=== PATIENT | female | born 1935 | race Caucasian/White ===

== ENCOUNTER 2017-01-03 06:32 | Day surgery (SDC) | payer OTHER ==
[~2017-01-03] VITALS: Ht 152.4 cm; Wt 62.3 kg
[~2017-01-03 06:32] MED LIST: ATOR20TA38 PO; CARV12.579 PO; EXEMESTANE; PANT40TA3 PO; REGLAN; SUCR1TAB56 PO
[2017-01-03] MEDS ORDERED: BUPIVACAINE 0.5% (SDV) 30 ML INJ ONE (07:11)
[2017-01-03] MEDS ORDERED: LIDOCAINE 1% (MDV) 20 ML INJ ONE (07:11)
[2017-01-03] MEDS ORDERED: CEFAZOLIN 2 GM/50 ML (PMX) 0 ML IVPB ONE (07:11)
[2017-01-03 07:26] VITALS: Ht 152.4 cm; Wt 62.3 kg
[2017-01-03] MEDS ORDERED: POLYMYXIN/BACITRACIN 1L IRRIG IRR SCH (07:30)
[2017-01-03 07:43] VITALS: BP 130/78; PULSE 96; RESP 18
[2017-01-03] MEDS ORDERED: PALB100C PO (07:44)
[2017-01-03 07:51] LABS: BASOPHIL # 0.1 10^3/ul (0.0-0.1); BASOPHILS % 1.9 % (0.0-2.0); EOSINOPHILS # 0.2 10^3/ul (0.0-0.5); EOSINOPHILS % 3.7 % (0.0-7.0); HEMATOCRIT 33.2 % (37.0-47.0); HEMOGLOBIN 11.1 g/dl (12.0-16.0); LYMPHOCYTES # 0.9 10^3/ul (0.8-2.9); LYMPHOCYTES % 16.5 % (15.0-51.0); MEAN CORPUSCULAR HEMOGLOBIN 33.1 pg (29.0-33.0); MEAN CORPUSCULAR HGB CONC 33.4 g/dl (32.0-37.0); MEAN CORPUSCULAR VOLUME 99.1 fl (82.0-101.0); MEAN PLATELET VOLUME 10.8 fl (7.4-10.4); MONOCYTE # 0.6 10^3/ul (0.3-0.9); MONOCYTES % 10.3 % (0.0-11.0); NEUTROPHILS % 64.1 % (39.0-77.0); PLATELET COUNT 256 10^3/UL (140-415); RED BLOOD COUNT 3.35 10^6/ul (4.20-5.40); RED CELL DISTRIBUTION WIDTH 14.2 % (11.5-14.5); WHITE BLOOD COUNT 5.7 10^3/ul (4.8-10.8)
[2017-01-03 08:10] VITALS: BP 136/72; PULSE 92; RESP 16
[2017-01-03 08:20] LABS: INR 0.99; PROTIME 13.1 Sec (12.2-14.2)
[2017-01-03 08:21] LABS: PARTIAL THROMBOPLASTIN TIME 28.6 Sec (25.0-35.0)
[2017-01-03 08:36] LABS: CALCIUM 9.6 mg/dl (8.4-10.2); CREATININE 1.38 mg/dl (0.44-1.00)
== END 2017-01-03 08:16 | disposition home or self-care (01) ==
LOC: SDS 06:32
PROVIDERS: ATTEND Internal Medicine Clinical Cardiac Electrophysiology
DX: Z45.02 Encounter for adjustment and management of automatic implantable cardiac defibrillator (principal); Z53.9 Procedure and treatment not carried out, unspecified reason; E78.00 Pure hypercholesterolemia, unspecified; Z85.89 Personal history of malignant neoplasm of other organs and systems
CPT/HCPCS: 80048; 85025; 85610; 85730; Z7610; J0690

== ENCOUNTER 2017-01-06 11:13 | Emergency (ER) | payer OTHER ==
[~2017-01-06] VITALS: Ht 154.9 cm; Wt 61.0 kg
[~2017-01-06 11:13] MED LIST changes: +PALB100C PO
[2017-01-06 11:16] VITALS: Ht 154.9 cm; Wt 61.0 kg
[2017-01-06] MEDS ORDERED: KETOROLAC 15 MG INJ IV STA (13:13)
--- NOTE | 2017-01-06 13:38 | RADRPT ---
PROCEDURE: XR Chest. CLINICAL INDICATION: Cough . TECHNIQUE: Single frontal chest x-ray. COMPARISON: 05/07/2014 FINDINGS: Cardiomegaly with left-sided biventricular AICD in place. There is left lower lobe retrocardiac atel ectasis or consolidation. Remainder of the lungs are clear. Right mastectomy with axillary node diss ection clips are seen. .. Calcific atherosclerosis of the aorta is present.. The osseous structure s are intact. IMPRESSION: Cardiomegaly with left-sided AICD in place. Increased left basilar atelectasis or consolidation. Status post right mastectomy with axillary node dissection.. RPTAT: JJ .Torsten Reyes MD, MD Date Time Electronically viewed and signed by .Torsten Reyes MD, MD on 01/06/2017 13:38 .L/
[2017-01-06] MEDS ORDERED: ASPI-664 PO (13:50)
[2017-01-06] MEDS ORDERED: SOD CHLORIDE 0.9% 500 ML IV ONE (14:00)
[2017-01-06] MEDS ORDERED: AZITHROMYCIN 250 MG TAB PO ONE (14:00)
[2017-01-06 14:12] LABS: BASOPHIL # 0.1 10^3/ul (0.0-0.1); BASOPHILS % 0.5 % (0.0-2.0); EOSINOPHILS # 0.1 10^3/ul (0.0-0.5); EOSINOPHILS % 0.4 % (0.0-7.0); HEMATOCRIT 32.2 % (37.0-47.0); HEMOGLOBIN 10.8 g/dl (12.0-16.0); LYMPHOCYTES # 0.9 10^3/ul (0.8-2.9); LYMPHOCYTES % 4.6 % (15.0-51.0); MEAN CORPUSCULAR HEMOGLOBIN 33.3 pg (29.0-33.0); MEAN CORPUSCULAR HGB CONC 33.5 g/dl (32.0-37.0); MEAN CORPUSCULAR VOLUME 99.4 fl (82.0-101.0); MEAN PLATELET VOLUME 10.6 fl (7.4-10.4); MONOCYTE # 0.3 10^3/ul (0.3-0.9); MONOCYTES % 1.6 % (0.0-11.0); NEUTROPHILS % 88.8 % (39.0-77.0); PLATELET COUNT 206 10^3/UL (140-415); RED BLOOD COUNT 3.24 10^6/ul (4.20-5.40); RED CELL DISTRIBUTION WIDTH 14.2 % (11.5-14.5); WHITE BLOOD COUNT 18.5 10^3/ul (4.8-10.8)
[2017-01-06 14:30] LABS: ALANINE AMINOTRANSFERASE 33 IU/L (13-69); ALBUMIN 3.8 g/dl (3.3-4.9); ALBUMIN/GLOBULIN RATIO 1.26; ALKALINE PHOSPHATASE 121 IU/L (42-121); ANION GAP 12 (8-16); ASPARTATE AMINO TRANSFERASE 29 IU/L (15-46); BILIRUBIN,INDIRECT 0.3 mg/dl (0-1.1); BILIRUBIN,TOTAL 0.3 mg/dl (0.2-1.3); BLOOD UREA NITROGEN 20 mg/dl (7-20); CARBON DIOXIDE 23 mmol/L (21-31); CHLORIDE 107 mmol/L (97-110); CREATININE 1.26 mg/dl (0.44-1.00); GLUCOSE 107 mg/dl (70-220); POTASSIUM 3.9 mmol/L (3.5-5.1); SODIUM 138 mmol/L (135-144); TOTAL PROTEIN 6.8 g/dl (6.1-8.1)
[2017-01-06] MEDS ORDERED: CEFTRIAXONE 1 GM INJ IM ONE ×2 (14:30→15:30)
[2017-01-06 14:42] LABS: B-TYPE NATRIURETIC PEPTIDE 128 PG/ML (0-450)
--- NOTE | 2017-01-06 14:42 | ERA ---
ER Documentation Chief Complaint Date/Time DATE: 01/06/17 TIME: 14:41 Chief Complaint Compplains of a cough and back pain x 3 days HPI 81-year-old woman brought in by family members for recent cough, back pain, intermittent shortness of breath 3-4 days. She has had no chest pain, no fevers or chills, no vomiting or diarrhea, no calf or leg swelling. Patient denies recent antibiotic use. ROS All systems reviewed and are negative except as per history of present illness. Medications Home Meds Active Scripts Ibuprofen* (Ibuprofen*) 600 Mg Tablet, 600 MG PO Q8 for PAIN AND/OR INFLAMMATION , #30 TAB Prov:DIMA CUEVAS MD 01/06/17 Albuterol Sulfate* (Proair HFA*) 8.5 Gm Hfa.aer.ad, 2 PUFF INH Q4 for COUGH, #1 INHALER Prov:DIMA CUEVAS MD 01/06/17 Azithromycin* (Zithromax*) 500 Mg Tablet, 500 MG PO DAILY for 4 Days, TAB Prov:DIMA CUEVAS MD 01/06/17 Sucralfate* (Carafate*) 1 Gm Tab, 1 GM PO QID, #20 TAB Prov:APRIL ARAIZA 07/22/15 Reported Medications Aspirin (Low Dose Aspirin) 81 Mg Tablet.dr, 81 MG PO DAILY, #30 TAB 01/06/17 Palbociclib (Ibrance) 100 Mg Capsule, 100 MG PO DAILY, CAP 01/03/17 Pantoprazole* (Protonix*) 40 Mg Tablet.dr, 40 MG PO DAILY, TAB 09/16/14 Atorvastatin Calcium* (Atorvastatin Calcium*) 20 Mg Tablet, 20 MG PO HS, TAB 05/07/14 Carvedilol* (Carvedilol*) 12.5 Mg Tablet, 12.5 MG PO BID, TAB 05/07/14 Discontinued Reported Medications [Reglan] No Conflict Check 10/19/15 [Exemestane] No Conflict Check 10/19/15 Allergies Allergies: Coded Allergies: No Known Allergies (Verified Allergy, Unknown, 01/06/17) PMhx/Soc Breast cancer, hypertension, CHF, previous anemia History of Surgery: Yes (c-sec x2,left breast mastectomy with radiation and chemo ) Anesthesia Reaction: No Hx Neurological Disorder: No Hx Respiratory Disorders: No Hx Cardiac Disorders: Yes (pacemaker) Hx Psychiatric Problems: No Hx Miscellaneous Medical Probl: Yes (high cholesterol) Hx Alcohol Use: No Hx Substance Use: No Hx Tobacco Use: No Smoking Status: Never smoker FmHx Family History: No diabetes Physical Exam Vitals Vital Signs Date Time Temp Pulse Resp B/P Pulse Ox O2 Delivery O2 Flow Rate FiO2 01/06/17 15:44 96 22 101/76 96 Room Air 01/06/17 15:02 92 22 126/75 96 Room Air 01/06/17 11:16 98.0 106 20 129/61 96 Physical Exam GENERAL: Well-developed, well-nourished, well-hydrated, in no apparent distress , looks nontoxic in appearance HEENT: Moist mucous membranes, pink conjunctiva, no cervical spine tenderness or step-off deformities, no goiter, no jaundice or icterus, extraocular movements intact without pain. No submandibular induration, and no pharyngeal erythema NEURO: Alert and oriented 3, cranial nerves II through XII intact bilaterally, pupils equal round reactive to light, no focal deficits or facial asymmetry, sensation intact distally Strength 5/5 in upper and lower extremities bilaterally CARDIAC: Regular rate and rhythm, no murmurs rubs or gallops LUNGS: Clear bilaterally no wheezing crackles or stridor ABDOMEN: Soft nontender, no guarding, no rigidity, no rebound, no psoas sign no obturator sign. Normoactive bowel sounds SKIN: Warm and dry to touch, no abrasions, contusions, or hematomas, no lacerations, no ecchymosis, no target lesions, and without ulcers EXTREMITIES: No clubbing cyanosis or edema, calves are bilaterally symmetrical, no Homans sign, no popliteal cord sign. Distal pulses equal and bilateral PSYCH: Normal affect without agitation or irritability Result Diagram: 01/06/17 1355 01/06/17 1355 Results 24 hrs Laboratory Tests Test 01/06/17 13:55 01/06/17 15:44 White Blood Count 18.510^3/ul Red Blood Count 3.2410^6/ul Hemoglobin 10.8g/dl Hematocrit 32.2% Mean Corpuscular Volume 99.4fl Mean Corpuscular Hemoglobin 33.3pg Mean Corpuscular Hemoglobin Concent 33.5g/dl Red Cell Distribution Width 14.2% Platelet Count 24916^3/UL Mean Platelet Volume 10.6fl Neutrophils % 88.8% Lymphocytes % 4.6% Monocytes % 1.6% Eosinophils % 0.4% Basophils % 0.5% Nucleated Red Blood Cells % 0.0/100WBC Neutrophils # (Manual) 16.410^3/ul Lymphocytes # 0.910^3/ul Monocytes # 0.310^3/ul Eosinophils # 0.110^3/ul Basophils # 0.110^3/ul Nucleated Red Blood Cells # 0.010^3/ul Sodium Level 138mmol/L Potassium Level 3.9mmol/L Chloride Level 107mmol/L Carbon Dioxide Level 23mmol/L Anion Gap 12 Blood Urea Nitrogen 20mg/dl Creatinine 1.26mg/dl Glucose Level 107mg/dl Calcium Level 9.0mg/dl Total Bilirubin 0.3mg/dl Direct Bilirubin 0.00mg/dl Indirect Bilirubin 0.3mg/dl Aspartate Amino Transf (AST/SGOT) 29IU/L Alanine Aminotransferase (ALT/SGPT) 33IU/L Alkaline Phosphatase 121IU/L Troponin I < 0.012ng/ml B-Type Natriuretic Peptide 128PG/ML Total Protein 6.8g/dl Albumin 3.8g/dl Globulin 3.00g/dl Albumin/Globulin Ratio 1.26 Lipase 55U/L Urine Color YELLOW Urine Clarity SLIGHTLY CLOUDY Urine pH 5.0 Urine Specific [place] 1.015 Urine Ketones NEGATIVEmg/dL Urine Nitrite NEGATIVEmg/dL Urine Bilirubin NEGATIVEmg/dL Urine Urobilinogen NEGATIVEmg/dL Urine Leukocyte Esterase 2+[place]/ul Urine Microscopic RBC 1/HPF Urine Microscopic WBC 84/HPF Urine Bacteria MODERATE/HPF Urine Hemoglobin NEGATIVEmg/dL Urine Glucose NEGATIVEmg/dL Urine Total Protein 1+mg/dl Current Medications Medications (Trade) Dose Ordered Sig/Zahra Route PRN Reason Start Time Stop Time Status Last Admin Dose Admin Ketorolac Tromethamine 15 mg 15 mg ONCE STAT IV 01/06/17 13:13 01/06/17 13:15 DC Sodium Chloride (NS) 500 ml @ 500 mls/hr Q1H ONCE IV 01/06/17 14:00 01/06/17 14:59 DC Azithromycin (Zithromax) 500 mg ONCE ONCE PO 01/06/17 14:00 01/06/17 14:01 DC 01/06/17 14:31 Ceftriaxone Sodium 1 gm 1 gm ONCE ONCE IM 01/06/17 14:30 01/06/17 14:44 DC Ceftriaxone Sodium (Rocephin) 50 ml @ 100 mls/hr ONCE ONCE IVPB 01/06/17 15:00 01/06/17 15:16 DC Ceftriaxone Sodium (Rocephin) 1 gm ONCE ONCE IM 01/06/17 15:30 01/06/17 15:30 DC Lidocaine (Xylocaine 1% (Mdv) 20 ml) 20 ml ONCE ONCE SC 01/06/17 15:30 01/06/17 15:31 DC 01/06/17 15:42 Ceftriaxone Sodium (Rocephin) 1 gm STK-MED ONCE .ROUTE 01/06/17 15:33 01/06/17 15:34 DC Procedures/MDM IV line was established patient was placed on ekg monitor tech rhythm strip revealed a paced wide-complex rhythm at 80 bpm. Patient was afebrile EKG performed, read by me revealed a paced rhythm at 93 bpm, left axis deviation , no concerning ST elevations or depressions noted. One view chest x-ray performed, read by me there is a pacemaker in the left chest with a large pleural effusion and possible parapneumonic infiltrate, right lung reveals atelectasis, no pneumothorax, no end of the diaphragm. I administered 1 L normal saline intravenously, Toradol 15 mg IV, and a GI cocktail 30 cc p.o. CBC reveals a leukocytosis, electrolytes revealed mild dehydration with a BUN/ creatinine 20/1.3, liver function tests normal, troponin negative.BNP was low, and urine analysis was positive for infection. I treated the patient here with azithromycin 500 mg p.o. 1 as well as ceftriaxone 1 g IV. Patient's curb-65 score is 2 given her age and BUN level so my recommendation was inpatient management for IV antibiotics although patient and her son who was at the bedside refused this. I told the patient outpatient management may be dangerous, she may develop respiratory failure, sepsis, and may not properly respond to oral antibiotics resulting even . Despite this the patient stated she did have close follow -up with her PMD and preferred outpatient management with oral antibiotics. Differential diagnoses considered, included but not limited to acute coronary syndrome, pulmonary embolism, aortic dissection, abdominal aortic aneurysm, sepsis, stroke, meningitis, encephalitis, pneumonia, appendicitis, cholecystitis , bowel obstruction, pyelonephritis, nephrolithiasis, cystitis, as well as metabolic, hematologic, and electrolyte abnormalities. As well as abscess, cellulitis, fractures, and dislocations. Patient feels much better at this time, and vital signs are normal, symptoms have improved. I did give strict instructions to return to the ED if symptoms continue or worsen, patient will otherwise follow-up with primary care physician. Patient understood instructions and agreed to plan. Disclaimer: Inadvertent spelling and grammatical errors are likely due to EHR/ dictation software use and do not reflect on the overall quality of patient care. Also, please note that the electronic time recorded on this note does not necessarily reflect the actual time of the patient encounter. I do not suspect sepsis. Departure Diagnosis: Primary Impression: Pneumonia Qualified Code: J18.1 - Pneumonia of left lower lobe due to infectious organism Additional Impression: Acute UTI Condition: Stable DIMA CUEVAS MD Jan 06, 2017 14:42
[2017-01-06 14:45] LABS: TROPONIN-I < 0.012 ng/ml (0.00-0.12)
[2017-01-06] MEDS ORDERED: CEFTRIAXONE 1 GM/50 ML (PMX) 50 ML IVPB ONE (15:00)
[2017-01-06] MEDS ORDERED: AZIT500T3 PO (15:19)
[2017-01-06] MEDS ORDERED: ALBU8.5H3 INH (15:19)
[2017-01-06] MEDS ORDERED: IBUP-1542 PO (15:19)
[2017-01-06] MEDS ORDERED: LIDOCAINE 1% (MDV) 20 ML INJ SC ONE (15:30)
[2017-01-06] MEDS ORDERED: CEFTRIAXONE 1 GM INJ ONE (15:33)
[2017-01-06 15:44] VITALS: BP 101/76; PULSE 96; RESP 22
[2017-01-06 15:56] LABS: ADD UMIC YES; UR ASCORBIC ACID NEGATIVE (NEGATIVE); UR BACTERIA MODERATE /HPF (NONE SEEN); UR BILIRUBIN (Dip) NEGATIVE (NEGATIVE); UR BLOOD (Dip) NEGATIVE (NEGATIVE); UR CLARITY SLIGHTLY CLOUDY (CLEAR); UR COLOR YELLOW (YELLOW); UR GLUCOSE (Dip) NEGATIVE (NEGATIVE); UR KETONES (Dip) NEGATIVE (NEGATIVE); UR LEUKOCYTE ESTERASE (Dip) 2+ Leu/ul (NEGATIVE); UR NITRITE (Dip) NEGATIVE (NEGATIVE); UR RBC 1 /HPF (0-5); UR SPECIFIC GRAVITY (Dip) 1.015 (1.003-1.030); UR TOTAL PROTEIN (Dip) 1+ mg/dl (NEGATIVE); UR UROBILINOGEN (Dip) NEGATIVE (NEGATIVE)
== END 2017-01-06 15:51 | disposition home or self-care (01) ==
LOC: E/R 11:13
DX: J18.1 Lobar pneumonia, unspecified organism (principal); N39.0 Urinary tract infection, site not specified; I10 Essential (primary) hypertension; I50.9 Heart failure, unspecified; Z79.82 Long term (current) use of aspirin; Z85.3 Personal history of malignant neoplasm of breast; Z95.0 Presence of cardiac pacemaker
CPT/HCPCS: 71010; 80053; 81001; 83690; 83880; 84484; 85025; 87040; 93005; J0696; J1885; J7040; Z7502; Z7610

== ENCOUNTER 2017-01-31 10:16 | Inpatient (IN) | payer OTHER ==
[2017-01-31] VITALS (7 sets, daily range): BP systolic 109–134; BP diastolic 61–76; PULSE 92–101; RESP 16–20; Ht 157.5 cm; Wt 61.3 kg
[~2017-01-31] VITALS: Ht 157.5 cm; Wt 61.3 kg
[~2017-01-31 10:16] MED LIST changes: +ALBU8.5H3 INH; +ASPI-664 PO; +AZIT500T3 PO; -EXEMESTANE; +IBUP-1542 PO; -REGLAN
[2017-01-31 11:41] LABS: ABNORMAL IP MESSAGE 1; HEMATOCRIT 30.3 % (37.0-47.0); HEMOGLOBIN 10.4 g/dl (12.0-16.0); MEAN CORPUSCULAR HEMOGLOBIN 34.3 pg (29.0-33.0); MEAN CORPUSCULAR HGB CONC 34.3 g/dl (32.0-37.0); MEAN PLATELET VOLUME 10.4 fl (7.4-10.4); PLATELET COUNT 247 10^3/UL (140-415); RED BLOOD COUNT 3.03 10^6/ul (4.20-5.40); RED CELL DISTRIBUTION WIDTH 14.5 % (11.5-14.5); WHITE BLOOD COUNT 1.9 10^3/ul (4.8-10.8)
[2017-01-31 11:55] LABS: INR 1.11; PROTIME 14.3 Sec (12.2-14.2); PT RATIO 1.1
[2017-01-31 11:56] LABS: PARTIAL THROMBOPLASTIN TIME 27.5 Sec (25.0-35.0)
[2017-01-31 12:02] LABS: HOLD TRANSMISSIONS 1; POSITIVE DIFF @See below
[2017-01-31 12:07] LABS: ALBUMIN 3.8 g/dl (3.3-4.9); ALBUMIN/GLOBULIN RATIO 1.18; BILIRUBIN,INDIRECT 0.2 mg/dl (0-1.1); BILIRUBIN,TOTAL 0.2 mg/dl (0.2-1.3)
[2017-01-31 12:09] LABS: CALCIUM 9.2 mg/dl (8.4-10.2); CREATININE 1.29 mg/dl (0.44-1.00); POTASSIUM 3.8 mmol/L (3.5-5.1)
[2017-01-31 12:34] LABS: ANISOCYTOSIS 1+ (0-0); BASOPHILS % (M) 5 % (0-2); EOSINOPHILS % (M) 2 % (0-7); GIANT THROMBO% (M) 1 % (0-0); METAMYELOCYTES %M 1 % (0-0); MONOCYTES % (M) 11 % (0-11); PLATELET ESTIMATE NORMAL; POIKILOCYTOSIS 2+ (0-0); POLYCHROMASIA 3+ (0-0)
--- NOTE | 2017-01-31 13:01 | RADRPT ---
PROCEDURE: XR Chest. CLINICAL INDICATION: Status post pneumonia. Preop. AICD battery exchange. TECHNIQUE: Single frontal chest x-ray. COMPARISON: 05/07/2014 and 01/06/2017 FINDINGS: Worsening congestion and edema throughout the left lung is seen. There is worsening opacification in the left lower lung with a presumed left pleural effusion. Benign chronic changes are seen scatter ed throughout the right lung. There is worsening atelectasis in the right lung base. The heart size is enlarged. Aortic atherosclerotic vascular calcifications are present. Dual-chamber left chest pac er/defibrillator is stable. There is no pneumothorax. Old healed fractures of the right rib cage are noted. Surgical clips are seen within the right axilla, also stable. The surrounding soft tissues a re otherwise remarkable for bony sclerotic changes, nonspecific and possibly related to metastatic d isease. Of note, the patient has had previous bone biopsy performed back in 2013. IMPRESSION: 1. Worsening congestion and edema within the left lung with presumed worsening consolidation and ef fusion in the left lung. 2. Cardiomegaly with multichamber left chest pacer/defibrillator, grossly stable. 3. No pneumothorax is identified at this time. 4. Worsening atelectasis in the right lung base. 5. Benign chronic changes seen elsewhere throughout the study, including mottled sclerotic changes of the bony structures. RPTAT: PP .Del Brennan MD, Date Time Electronically viewed and signed by .Del Brennan MD, on 01/31/2017 13:00 .B/
[2017-01-31] MEDS ORDERED: DC all Lovenox, Heparing, and Coumadin orders. XX SCH (13:30)
[2017-01-31] MEDS ORDERED: NACL 0.9% 3 ML SYG IV SCH ×2 (13:30→14:30)
--- NOTE | 2017-01-31 13:49 | CONS ---
Date/Time of Note Date/Time of Note DATE: 01/31/17 TIME: 13:47 Assessment/Plan Assessment/Plan Additional Assessment/Plan 81 yo with breast CA, CMY, BIV ICD - here for elective gen change - noted to have WBC 1.9 with increasing infiltrate on CXR - concern for PNA - will admit for IV anti-bx, consider ID consult/ hem onc consult, CT CHEST - will defger battey change to whenever pt is stable. Thank you # [id number] Consultation Date/Type/Reason Admit Date/Time Initial Consult Date Exam/Review of Systems Vital Signs Vitals Vital Signs Date Time Temp Pulse Resp B/P Pulse Ox O2 Delivery O2 Flow Rate FiO2 01/31/17 11:21 97.6 101 19 112/68 98 Room Air Results Result Diagram: 01/31/17 1124 01/31/17 1123 Results 24 hrs Laboratory Tests Test 01/31/17 11:23 01/31/17 11:24 Prothrombin Time 14.3 H Prothrombin Time Ratio 1.1 INR International Normalized Ratio 1.11 Activated Partial Thromboplast Time 27.5 Sodium Level 141 Potassium Level 3.8 Chloride Level 107 Carbon Dioxide Level 25 Anion Gap 13 Blood Urea Nitrogen 17 Creatinine 1.29 H Glucose Level 107 Calcium Level 9.2 Total Bilirubin 0.2 Direct Bilirubin 0.00 Indirect Bilirubin 0.2 Aspartate Amino Transf (AST/SGOT) 34 Alanine Aminotransferase (ALT/SGPT) 41 Alkaline Phosphatase 60 Total Protein 7.0 Albumin 3.8 Globulin 3.20 Albumin/Globulin Ratio 1.18 White Blood Count 1.9 #L Red Blood Count 3.03 L Hemoglobin 10.4 L Hematocrit 30.3 L Mean Corpuscular Volume 100.0 Mean Corpuscular Hemoglobin 34.3 H Mean Corpuscular Hemoglobin Concent 34.3 Red Cell Distribution Width 14.5 Platelet Count 247 Mean Platelet Volume 10.4 Neutrophils % Segmented Neutrophils % (Manual) 50 Band Neutrophils % (Manual) 2 Lymphocytes % Lymphocytes % (Manual) 29 Monocytes % Monocytes % (Manual) 11 Eosinophils % (Manual) 2 Basophils % (Manual) 5 H Metamyelocytes % (manual) 1 H Nucleated Red Blood Cells % 0.0 Neutrophils # Neutrophils # (Manual) 1.0 L Band Neutrophils # 0.0 Absolute Lymphocytes (Manual) 0.5 L Lymphocytes # Monocytes # Absolute Monocytes (Manual) 0.2 L Basophils # (Manual) 0.0 Metamyelocytes # 0.0 Platelet Estimate NORMAL Giant Platelets 1 H Polychromasia 3+ Poikilocytosis 2+ Anisocytosis 1+ CBC Results Faxed/Phoned 1 *H Medications Medications Current Medications Miscellaneous Information (* Miscellaneous Pharmacy Order) DC Belia Gallegos... ONCE XX ; Start 01/31/17 at 13:30 STEFANY BOYCE MD Jan 31, 2017 13:49
[2017-01-31] MEDS ORDERED: DOCUSATE SODIUM 100 MG CAP PO PRN (14:30)
[2017-01-31] MEDS ORDERED: ACETAMINOPHEN 325 MG TAB PO PRN (14:30)
[2017-01-31] MEDS ORDERED: VANCOMYCIN IV PER PHARMACY XX SCH (14:30)
[2017-01-31] MEDS ORDERED: ONDANSETRON 4 MG INJ IV PRN (14:30)
--- NOTE | 2017-01-31 14:32 | HP ---
Date/Time of Note Date/Time of Note DATE: 01/31/17 TIME: 14:32 Assessment/Plan VTE Prophylaxis VTE Prophylaxis Intervention: SCD's Assessment/Plan Assessment/Plan 1. Left sided pleural effusion with consolidation - CXR shows worsening congestion and edema within the left lung with presumed worsening consolidation and effusion in the left lung. - CT scan of chest ordered to assess effusion and consolidation. Will order thoracentesis if needed and send for fluid studies 2. Left sided pneumonia - failed outpatient treatment and will start on broad spectrum IV antibiotics - Nebs PRN for SOB - Stable on room air 3. Leukopenia secondary to infection vs chemotherapy - will continue to monitor - on broad spectrum antibiotics - If worsens will consider heme/onc consult. Per son patient follows with a Dr. Tay 4. Cardiomyopathy with last documented ejection fraction of 45% while bi-V paced 5. H/o Bivent ICD - in need of battery replacement - once stable will replace - Dr. iPneda on board and consultation appreciated 6. H/o Breast CA with mets to pelvis - On PO chemo which patient brought her own medication supply with her - Had an appointment today for bisphos infusion and informed office she was at [facility] 7. Anemia of chronic disease - will check iron studies - monitor H/H 8. KAYLEE - Will renally dose medications and monitor Cr/BUN - will hold off on IVF since tolerating PO in setting of pleural effusions 9. Diet - regular 10. GI - Pepcid 11. DVT - SCD 12. Code status - Full code - Advance care planning was discussed and deferred by patient at this time 13. Disposition - Admit to Telemetry >40 minutes was spent with patient and son at bedside during time of admission. All labs and imaging were personally reviewed. Home medications were reviewed as well. HPI/ROS Admit Date/Time Admit Date/Time 01/31/17 Hx of Present Illness 81 yo F with PMH HTN, cardiomyopathy, HLD, Metastatic breast CA s/p L mastectomy and axillary resection and pelvic CA currently undergoing treatment presented for elective replacement of ICD battery but was found to have abnormal labs and CXR. Patient has been experiencing chest congestion and cough for the past 2 weeks. She was recently found to have pneumonia in the ED and discharged home on PO antibiotics. Patient states she has been coughing but unable to produce any expectorant. Son at bedside and history obtained from son as well as patient. Patient denies any sick contact, fevers, chills, nausea, vomiting, chest pain, shortness of breath, wheezing, or abdominal issues. When informed about low white count, states it is secondary to the medication she has been taking. ROS All 13 systems reviewed and pertinent positives per HPI. All others reviewed and are negative. Constitutional: No diaphoresis, No fatigue, No febrile, No nausea Eyes: no complaints ENT: No congestion, No pain, No sore throat Respiratory: cough, No shortness of breath, No sputum, No wheezing Cardiovascular: No chest pain, No edema, No lightheadedness, No palpitations Gastrointestinal: No constipation, No diarrhea, No nausea, No vomiting Genitourinary: no complaints Musculoskeletal: no complaints Skin: No erythema, No laceration, No rash Neurologic: no complaints Endocrine: no complaints Lymphatic: no complaints Psychological: no complaints Immunologic: no complaints PMH/Family/Social Past Medical History Medical History: high cholesterol, hypertension, other (breast Ca, pelvic CA, cardiomyopathy) Past Surgical History Past Surgical Hx: other (left mastectomy ) Family History Significant Family History: no pertinent family hx Social History Alcohol Use: none Smoking Status: Never smoker Drug Use: none Exam/Review of Systems Vital Signs Vitals Vital Signs Date Time Temp Pulse Resp B/P Pulse Ox O2 Delivery O2 Flow Rate FiO2 01/31/17 14:11 98.3 92 20 134/76 92 Room Air Exam Constitutional: alert, oriented, well developed, No distress Psych: nl mood/affect Head: atraumatic, normocephalic Eyes: EOMI, PERRL, nl sclera ENMT: mucosa pink and moist Neck: non-tender, supple Respiratory: congested cough, diminished breath sounds (left lobe), wheezing ( expiratory in left lobe), No labored breathing Cardiovascular: regular rate and rhythm, No edema, No murmurs/extra sounds Gastrointestinal: bowel sounds, non-tender, soft, No distended, No rebound or guarding Musculoskeletal: nl extremities to inspection Extremities: normal pulses, No clubbing, No cyanosis, No edema Neurological: GUARD ENTRANCE REGISTRAR II-XII intact, nl mental status, nl speech Skin: nl turgor Lymph: nl lymph nodes Labs Result Diagram: 01/31/17 1124 01/31/17 1123 Medications Medications Current Medications Miscellaneous Information (* Miscellaneous Pharmacy Order) DC all Lovenox, Hepari... ONCE XX ; Start 01/31/17 at 13:30 Aspirin (Halfprin) 81 mg DAILY PO ; Start 02/01/17 at 09:00; Status UNV Atorvastatin Calcium (Lipitor) 20 mg HS PO ; Start 01/31/17 at 21:00; Status UNV Pantoprazole (Protonix Tab) 40 mg DAILY PO ; Start 02/01/17 at 09:00; Status UNV Miscellaneous Information 100 mg 100 mg DAILY PO ; Start 02/01/17 at 09:00; Status UNV Piperacillin Sod/ Tazobactam Sod (Zosyn 3.375gm/ 100 ml (Pmx)) 100 ml @ 200 mls /hr Q8 IVPB ; Start 01/31/17 at 22:00; Status UNV Procedures Procedures PROCEDURE: XR Chest. CLINICAL INDICATION: Status post pneumonia. Preop. AICD battery exchange. TECHNIQUE: Single frontal chest x-ray. COMPARISON: 05/07/2014 and 01/06/2017 FINDINGS: Worsening congestion and edema throughout the left lung is seen. There is worsening opacification in the left lower lung with a presumed left pleural effusion. Benign chronic changes are seen scattered throughout the right lung. There is worsening atelectasis in the right lung base. The heart size is enlarged. Aortic atherosclerotic vascular calcifications are present. Dual- chamber left chest pacer/defibrillator is stable. There is no pneumothorax. Old healed fractures of the right rib cage are noted. Surgical clips are seen within the right axilla, also stable. The surrounding soft tissues are otherwise remarkable for bony sclerotic changes, nonspecific and possibly related to metastatic disease. Of note, the patient has had previous bone biopsy performed back in 2013. IMPRESSION: 1. Worsening congestion and edema within the left lung with presumed worsening consolidation and effusion in the left lung. 2. Cardiomegaly with multichamber left chest pacer/defibrillator, grossly stable. 3. No pneumothorax is identified at this time. 4. Worsening atelectasis in the right lung base. 5. Benign chronic changes seen elsewhere throughout the study, including mottled sclerotic changes of the bony structures. GARY CROSS MD Jan 31, 2017 14:32
--- NOTE | 2017-01-31 16:40 | CONS ---
DATE OF ADMISSION: 01/31/2017 DATE OF CONSULTATION: 01/31/2017 HISTORY OF PRESENT ILLNESS: Ms. Elaine Morocho is an 81- year-old patient of mine from the office who has a history of hypertension, dyslipidemia, history of coronary artery disease, history of cardiomyopathy, who had biventricular ICD placed by another provider, as well as a history of metastatic breast cancer, who comes to the hospital now for elective generator change near end-of-life. Patient is 100 percent pacer dependent. In preoperative assessment, it was noted that patient's white blood cell count 11.9 with borderline neutropenia. She also was noted to have a infiltrate on the left side. I had a lengthy discussion with radiologist an it appears that she does have left- sided infiltrate which is increasing in size. As such it was felt prudent to hold off on procedure now while investigating possible pneumonia therapy. In discussion with family, patient was diagnosed with pneumonia recently. She has been treated with p.o. antibiotics at home. It appears that she has not responded. I think it would be prudent to admit the patient for IV antibiotics and conservative therapy. Once her ID status is optimized, we will consider battery change at that time. PAST MEDICAL HISTORY: Hypertension, dyslipidemia, history of cardiomyopathy with last documented ejection fraction of 45 percent while bi-V paced, history of biventricular ICD. ALLERGIES: NO KNOWN DRUG ALLERGIES. SOCIAL HISTORY: She does not smoke, does not drink, does not use drugs. FAMILY HISTORY: Negative for sudden cardiac or premature coronary artery disease. MEDICATION: Reviewed on outpatient list. REVIEW OF SYSTEMS: GENERAL: There is no fevers, no chills, productive cough. HEENT: No changes in vision or hearing. CARDIOVASCULAR: No chest pain reported now. RESPIRATORY: No shortness of breath. GASTROINTESTINAL: No nausea or vomiting. GENITOURINARY: No urgency, hematuria, frequency. NEUROLOGIC: No focal neurologic deficits. ONCOLOGIC: History of breast cancer. PSYCHIATRIC: No known history of psychiatric illness. PHYSICAL EXAMINATION: VITAL SIGNS: Temperature is 97.6, heart rate is 101, blood pressure 112/68. GENERAL APPEARANCE: She is a well-nourished, well developed female who is alert and oriented x3, condition. HEENT: Head normocephalic, atraumatic. Eyes anicteric. NECK: Supple. JVD at 6 cm. No lymphadenopathy. HEART: Regular. A soft mid systolic murmur at the apex. ICD . LUNGS: Coarse with decreased motion to the left side. ABDOMEN: Distended. Bowel sounds are present. There is no hepatosplenomegaly. GENITOURINARY: Intact. EXTREMITIES: No clubbing, cyanosis, or edema. LABORATORY: White blood cell count is , hemoglobin is 10.3, platelets 249. INR is 1.1. Sodium 141, potassium is 3.8, creatinine is 1.29. Troponin is 0.012. IMPRESSION AND PLAN: 1. End-of-life implantable cardioverter-defibrillator generator. Patient with end-of-life implantable cardioverter- defibrillator generator. . Patient now with borderline neutropenia, as well as progressive left side infiltrate considered as pneumonia. For elective procedures, would be prudent to treat the pneumonia before subjecting patient to elective procedure. Patient and family agreed. 2. Cardiomyopathy. Patient has cardiomyopathy. Bi-V paced. Will follow up with generator change once the patient is more stable. 3. Hypertension. Blood pressure well controlled now. Continue to monitor. 4. Acute renal failure. Creatinine is 1.29. Continue to avoid nephrotoxic medications. 5. Breast cancer. We will defer to hematology. 6. Neutropenia. Hematology and Infectious Disease evaluation pending. Dictated By: Del Pineda MD /sarah/duke /Document#: [id number]
[2017-01-31] MEDS ORDERED: VANCOMYCIN 1.25 GM in SOD CHLORIDE 0.9% 250 ML IVPB ONE (17:00)
[2017-01-31] MEDS: ALBUTEROL 0.083% (NEB) 2.5 MG/3 ML AMP HHN SCH ×2 (17:17→20:26)
[2017-01-31] MEDS: PIPER-TAZO 3.375 GM IV (PMX) 100 ML IVPB SCH ×2 (17:57→22:23)
[2017-01-31] MEDS: PANTOPRAZOLE (EC) 40 MG TAB PO SCH (17:58)
[2017-01-31] MEDS: ASPIRIN (EC) 81 MG TAB PO SCH (17:58)
--- NOTE | 2017-01-31 18:11 | RADRPT ---
PROCEDURE: CT CHEST WITHOUT CONTRAST CLINICAL INDICATION: Shortness of breath, effusion TECHNIQUE: Volumetrically acquired images of the thorax obtained without intravenous contrast were reformatted in the axial, coronal, and sagittal planes. CTDI = 8.9 mGy; DLP = 364 mGy-cm. One or m ore of the following dose reduction techniques were used: Automated exposure control. Adjustment of the mA and/or kV according to patient size. Use of iterative reconstruction technique . COMPARISON: Chest x-ray from 01/31/2017. FINDINGS: LOWER NECK AND CHEST WALL: Status post right mastectomy and right axillary node dissection. There is a left chest wall AICD pacer device. AIRWAYS: The trachea and large airways are normal. LUNGS: Dependent atelectasis is seen bilaterally. No suspicious nodules, masses, or consolidation. PLEURA: Large left and moderate right pleural effusions are seen with associated atelectasis. MEDIASTINUM: There is soft tissue is seen in the mediastinum posterior to the bifurcation of the tra grant (series 3 image 42), measuring 3.8 x 3.7 cm. LYMPH NODES: Enlarged left axillary lymph nodes are present, largest measuring 18 mm in short axis d iameter. Multiple enlarged prominent lymph nodes are seen in the mediastinum, incompletely character ized secondary to lack of intravenous contrast. CARDIAC: The heart size is normal. No pericardial effusion or thickening. VASCULAR: The aorta and main pulmonary artery are normal in caliber. Aortic and coronary atheroscl erotic calcifications are present. OSSEOUS: Diffuse sclerotic and lytic lesions are seen throughout the skeleton.. Scattered degenerat cristofer changes of the thoracic spine is visualized. Limited evaluation of the upper abdomen demonstrates mildly atrophic kidneys with nonspecific perine phric stranding.. IMPRESSION: 1. Status post right mastectomy. There are enlarged left axillary lymph nodes as well as a soft tiss ue mass seen within the mediastinum with enlarged mediastinal lymph nodes as well as diffuse sclerot ic and lytic osseous lesions consistent with metastatic disease. 2. Aortic and coronary atherosclerosis. 3. Large left and moderate right pleural effusions with associated atelectasis. RPTAT:PP .Sher Lynn MD, MD Date Time Electronically viewed and signed by .Sher Lynn MD, on 01/31/2017 18:10 .V/
[2017-01-31] MEDS: GUAIFENESIN LA 600 MG TABSR PO SCH (21:00)
[2017-01-31] MEDS: ATORVASTATIN 20 MG TAB PO SCH (21:01)
[2017-02-01] VITALS (11 sets, daily range): BP systolic 100–127; BP diastolic 56–70; PULSE 89–107; RESP 16–20
[2017-02-01] MEDS: PIPER-TAZO 3.375 GM IV (PMX) 100 ML IVPB SCH ×3 (06:00→21:47)
[2017-02-01 07:53] LABS: ABNORMAL IP MESSAGE 1; HEMATOCRIT 32.9 % (37.0-47.0); HEMOGLOBIN 10.5 g/dl (12.0-16.0); MEAN CORPUSCULAR HEMOGLOBIN 32.5 pg (29.0-33.0); MEAN CORPUSCULAR HGB CONC 31.9 g/dl (32.0-37.0); MEAN CORPUSCULAR VOLUME 101.9 fl (82.0-101.0); MEAN PLATELET VOLUME 10.5 fl (7.4-10.4); PLATELET COUNT 257 10^3/UL (140-415); RED BLOOD COUNT 3.23 10^6/ul (4.20-5.40); RED CELL DISTRIBUTION WIDTH 14.5 % (11.5-14.5); WHITE BLOOD COUNT 1.8 10^3/ul (4.8-10.8)
[2017-02-01 08:20] LABS: INR 1.02; PROTIME 13.4 Sec (12.2-14.2)
[2017-02-01 08:22] LABS: POSITIVE DIFF @See below
[2017-02-01] MEDS: ALBUTEROL 0.083% (NEB) 2.5 MG/3 ML AMP HHN SCH ×4 (08:22→20:38)
[2017-02-01 08:27] LABS: CREATININE 1.31 mg/dl (0.44-1.00); POTASSIUM 3.7 mmol/L (3.5-5.1)
[2017-02-01 08:57] LABS: BASOPHILS % (M) 15 % (0-2); EOSINOPHILS % (M) 1 % (0-7); GIANT THROMBO% (M) 1 % (0-0); MONOCYTES % (M) 2 % (0-11); PLATELET ESTIMATE NORMAL; POIKILOCYTOSIS 1+ (0-0); POLYCHROMASIA 1+ (0-0)
[2017-02-01] MEDS ORDERED: PALBOCICLIB 100 MG XX SCH (09:00)
[2017-02-01] MEDS ORDERED: MAGNESIUM SULFATE 2 GM/50 ML 50 ML IVPB ONE (09:00)
--- NOTE | 2017-02-01 09:16 | RADRPT ---
PROCEDURE: Retroperitoneal US. CLINICAL INDICATION: Renal insufficiency TECHNIQUE: Multiple sonographic images of the kidneys and retroperitoneum were obtained. The imag es were reviewed on a PACS workstation. COMPARISON: No prior studies are available for comparison. FINDINGS: The kidneys are normal in contour, cortical thickness and cortical echogenicity. The right kidney measures 8.8 cm. The left kidney measures 9.1 cm. No kidney stones are visualized. There is mild right-sided hydronephrosis. There is possible focal left upper pole hydronephrosis versus a septated cyst. There is a 8 mm exoph ytic cyst in the left kidney. The urinary bladder is not distended. RPTAT: AA IMPRESSION: Small kidneys. Mild right-sided hydronephrosis. Localized left upper pole hydronephrosis versus a septated cyst, measuring 2.0 x 1.9 cm. Further evaluation with a CT urogram is recommended, if possible. .Dandy Biswas MD, MD Date Time Electronically viewed and signed by .Dandy Biswas MD, on 02/01/2017 09:16 .S/
[2017-02-01] MEDS: ASPIRIN (EC) 81 MG TAB PO SCH (09:25)
[2017-02-01] MEDS: GUAIFENESIN LA 600 MG TABSR PO SCH ×2 (09:25→21:47)
[2017-02-01] MEDS: PANTOPRAZOLE (EC) 40 MG TAB PO SCH (09:26)
--- NOTE | 2017-02-01 11:12 | CONS ---
Date/Time of Note Date/Time of Note DATE: 02/01/17 TIME: 11:08 Assessment/Plan Assessment/Plan Additional Assessment/Plan Assessment and recommendations; 1. Patient with a history of widely metastatic breast cancer admitted for shortness of breath due to bilateral pleural effusions with compressive atelectasis involving lower lobes. 2. Leukopenia. 3. History of cardiac arrhythmia. 4. CT chest findings are not indicative of any infective process. However superimposed pneumonia in areas of atelectasis is difficult to rule out. Continue current treatment. Patient scheduled for ultrasound-guided thoracentesis. Prognosis is poor. Consultation Date/Type/Reason Admit Date/Time 01/31/17 Date of Consultation: Feb 01, 2017 Type of Consultation: Pulmonary Reason for Consultation Pulmonary consultation requested for evaluation of shortness of breath. History of presenting illness; Patient is a pleasant 81-year-old white female who came into the hospital yesterday with a few days history of increasing shortness of breath. Upon further evaluation chest x-ray was done as well as a CT of the chest which is showing significant bilateral pleural effusions. The patient is scheduled for ultrasound-guided thoracentesis. She denies any coughing, chest pain, fever or chills. Also denies any hemoptysis. According to her she was doing fairly well until a few days ago when the symptoms gradually started. Patient also been complaining of weight loss. Past medical history: 1. Patient with history of widely metastatic breast cancer. 2. History of systemic hypertension. 3. Possibly chronic underlying renal insufficiency. 4. History of hyperlipidemia. Medications; reviewed. Allergies; none. Socially; patient never smoked. No history of any alcohol or drug abuse. Family history; noncontributory. Occupational history; patient is retired. Review systems; denies any headache, seizures. Any chest pain, thing or hemoptysis. Denies any abdominal pain, nausea vomiting. Has poor appetite. Denies any melena or hematochezia. Complains of mild orthopnea. Complains of dyspnea on exertion. Denies any skin changes. Complains of chronic pain. Next General exam; elderly woman, awake and alert. Currently in no distress. Eyes: no complaints ENT: No congestion, No pain, No sore throat Respiratory: cough, No shortness of breath, No sputum, No wheezing Cardiovascular: No chest pain, No edema, No lightheadedness, No palpitations Gastrointestinal: No constipation, No diarrhea, No nausea, No vomiting Genitourinary: no complaints Musculoskeletal: no complaints Skin: No erythema, No laceration, No rash Neurologic: no complaints Lymphatic: no complaints Psychological: nl mood/affect Immunologic: no complaints Past Medical History Medical History: high cholesterol, hypertension, other (breast Ca, pelvic CA, cardiomyopathy) Past Surgical History Past Surgical Hx: other (left mastectomy ) Social History Alcohol Use: none Smoking Status: Never smoker Drug Use: none Exam/Review of Systems Vital Signs Vitals Vital Signs Date Time Temp Pulse Resp B/P Pulse Ox O2 Delivery O2 Flow Rate FiO2 02/01/17 08:30 92 02/01/17 08:22 18 95 Nasal Cannula 3.0 02/01/17 07:57 98.5 127/61 Intake and Output 01/31/17 01/31/17 02/01/17 15:00 23:00 07:00 Intake Total 300 ml 350 ml Balance 300 ml 350 ml Exam HEENT exam; supple neck, no JVD. No lymphadenopathy. Midline trachea. No thyromegaly. Pharynx is clear. Pupils are small bilaterally. No neck masses. Chest exam; diminished breath on lung bases bilaterally. S1-S2 audible, no murmurs. Regular rhythm. There is a pacemaker in left chest wall. Abdomen exam; soft, nontender. No organomegaly. Bowel sounds audible. Extremity exam; no edema. No clubbing. OVERNIGHT STOCKER exam; no focal deficit. Results Result Diagram: 02/01/1715 02/01/1715 Results 24 hrs Laboratory Tests Test 01/31/17 11:23 01/31/17 11:24 02/01/17 07:15 Prothrombin Time 14.3 H 13.4 Prothrombin Time Ratio 1.1 1.0 INR International Normalized Ratio 1.11 1.02 Activated Partial Thromboplast Time 27.5 Sodium Level 141 144 Potassium Level 3.8 3.7 Chloride Level 107 108 Carbon Dioxide Level 25 26 Anion Gap 13 14 Blood Urea Nitrogen 17 14 Creatinine 1.29 H 1.31 H Glucose Level 107 121 Calcium Level 9.2 9.0 Total Bilirubin 0.2 Direct Bilirubin 0.00 Indirect Bilirubin 0.2 Aspartate Amino Transf (AST/SGOT) 34 Alanine Aminotransferase (ALT/SGPT) 41 Alkaline Phosphatase 60 Total Protein 7.0 Albumin 3.8 Globulin 3.20 Albumin/Globulin Ratio 1.18 White Blood Count 1.9 #L 1.8 L Red Blood Count 3.03 L 3.23 L Hemoglobin 10.4 L 10.5 L Hematocrit 30.3 L 32.9 L Mean Corpuscular Volume 100.0 101.9 H Mean Corpuscular Hemoglobin 34.3 H 32.5 Mean Corpuscular Hemoglobin Concent 34.3 31.9 L Red Cell Distribution Width 14.5 14.5 Platelet Count 247 257 Mean Platelet Volume 10.4 10.5 H Neutrophils % Segmented Neutrophils % (Manual) 50 27 L Band Neutrophils % (Manual) 2 2 Lymphocytes % Lymphocytes % (Manual) 29 53 H Monocytes % Monocytes % (Manual) 11 2 Eosinophils % (Manual) 2 1 Basophils % (Manual) 5 H 15 H Metamyelocytes % (manual) 1 H Nucleated Red Blood Cells % 0.0 0.0 Neutrophils # Neutrophils # (Manual) 1.0 L 0.5 L Band Neutrophils # 0.0 0.0 Absolute Lymphocytes (Manual) 0.5 L 0.9 Lymphocytes # Monocytes # Absolute Monocytes (Manual) 0.2 L 0.0 L Basophils # (Manual) 0.0 0.2 H Metamyelocytes # 0.0 Platelet Estimate NORMAL NORMAL Giant Platelets 1 H 1 H Polychromasia 3+ 1+ Poikilocytosis 2+ 1+ Anisocytosis 1+ CBC Results Faxed/Phoned 1 *H Eosinophils % Basophils % Eosinophils # Basophils # Nucleated Red Blood Cells # Magnesium Level 1.6 L Medications Medications Current Medications Miscellaneous Information (* Miscellaneous Pharmacy Order) DC all Lovenox, Hepari... ONCE XX ; Start 01/31/17 at 13:30 Aspirin (Halfprin) 81 mg DAILY PO Last administered on 02/01/17 09:25; Admin Dose 81 MG; Start 01/31/17 at 16:00 Atorvastatin Calcium (Lipitor) 20 mg HS PO Last administered on 01/31/17 21:01 ; Admin Dose 20 MG; Start 01/31/17 at 21:00 Pantoprazole (Protonix Tab) 40 mg DAILY PO Last administered on 02/01/17 09:26 ; Admin Dose 40 MG; Start 01/31/17 at 16:00 Miscellaneous Information 100 mg 100 mg DAILY XX ; Start 02/01/17 at 09:00; Stop 02/20/17 at 09:01 Piperacillin Sod/ Tazobactam Sod (Zosyn 3.375gm/ 100 ml (Pmx)) 100 ml @ 200 mls /hr Q8 IVPB Last administered on 02/01/17 06:00; Admin Dose 200 MLS/HR; Start 01/31/17 at 16:00 Ondansetron HCl (Zofran Inj) 4 mg Q6H PRN IV NAUSEA AND/OR VOMITING; Start 01/31/17 at 14:30 Acetaminophen (Tylenol Tab) 650 mg Q6H PRN PO PAIN LEVEL 1-3 OR FEVER; Start 01/31/17 at 14:30 Docusate Sodium 100 mg 100 mg Q12H PRN PO CONSTIPATION; Start 01/31/17 at 14:30 Vancomycin HCl/ Sodium Chloride (Vancocin/NS) 150 ml @ 75 mls/hr Q24H IVPB ; Start 02/01/17 at 17:00 Guaifenesin (Mucinex) 600 mg BID PO Last administered on 02/01/17 09:25; Admin Dose 600 MG; Start 01/31/17 at 21:00 DAGOBERTO CAO Feb 01, 2017 11:12
[2017-02-01] MEDS ORDERED: LIDOCAINE 1% (MPF) 5 ML VIAL ONE (14:34)
--- NOTE | 2017-02-01 15:15 | RADRPT ---
PROCEDURE: US guided left thoracentesis. CLINICAL INDICATION: Shortness of breath. Left pleural effusion. TECHNIQUE: Prior to the procedure, informed consent was obtained. The risks, benefits, and alternatives were e xplained to the patient or the patient's family, including but not limited to bleeding, infection, p ain, visceral or vascular damage, shock, pneumothorax, chest tube placement, air embolism, and . The patient or the patient's family understood the risks and the alternatives and wished to proce ed with the study. Informed written consent was obtained. A procedural pause was performed. The patient's name, date of , and procedure to be performed were verified. Ultrasound of the left hemithorax was performed in the axial and sagittal planes. A left pleural eff usion is noted. Utilizing ultrasound guidance, optimal location for entry to the pleural cavity was ascertained. The overlying skin was prepped and draped in the usual sterile fashion. Approximately 10 ml of 1% Xylocaine was injected locally for pain control. Using ultrasound guidance, a 5-Romansh Yueh catheter was introduced into the left pleural space without difficulty. Fluid was aspirated. COMPARISON: None. FINDINGS: Initial ultrasound demonstrates fluid in the left pleural space. Approximately 1.2liters of serous fluid was aspirated and sent to the laboratory. IMPRESSION: 1. Satisfactory ultrasound-guided left thoracentesis. RPTAT: QQ .Amrit Eldridge MD, Date Time Electronically viewed and signed by .Amrit Eldridge MD, on 02/01/2017 15:15 .R/
--- NOTE | 2017-02-01 15:17 | CONS ---
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 Metastatic breast ca 6. leukopenia 7. PLeural effusions 8. REnal failure Recc: -Tele -serial ecg's -Follow rhythm/rate closely -consider low dose ACEI afterload reduction if creatnine at baseline versus hydralazine -Continue abx's and f/u cx data -Lasix diuresis Problems: Consultation Date/Type/Reason Admit Date/Time Jan 31, 2017 at 13:15 Initial Consult Date 02/01/17 Type of Consultation: cardiology Reason for Consultation cardiomyopathy Referring Provider: STEFANY BOYCE MD Exam/Review of Systems Vital Signs Vitals Vital Signs Date Time Temp Pulse Resp B/P Pulse Ox O2 Delivery O2 Flow Rate FiO2 02/01/17 14:04 90 02/01/17 12:57 20 96 Nasal Cannula 3.0 02/01/17 11:47 97.9 100/58 Intake and Output 01/31/17 01/31/17 02/01/17 15:00 23:00 07:00 Intake Total 300 ml 350 ml Balance 300 ml 350 ml Exam Review of Systems: CONSTITUTIONAL: No fevers, chills. PULMONARY: No sob CARDIOVASCULAR: No chest pain/palpitations GASTROINTESTINAL: No nausea/vomiting. GENITOURINARY: No hematuria/dysuria. MUSCULOSKELETAL: No myagias/arthalgias. PSYCHIATRIC: The patient denies depression. NEUROLOGIC: No weakness Constitutional: alert Psych: no complaints Head: normocephalic ENMT: mucosa pink and moist Neck: jvd (9 cm water), supple Respiratory: diminished breath sounds (at bases/B) Cardiovascular: regular rate and rhythm Gastrointestinal: non-tender, soft Musculoskeletal: muscle tone (normal) Extremities: edema (none) Neurological: other (No focal deficits) Results Result Diagram: 02/01/17 0715 02/01/1715 Results 24 hrs Laboratory Tests Test 02/01/17 07:15 White Blood Count 1.8 L Red Blood Count 3.23 L Hemoglobin 10.5 L Hematocrit 32.9 L Mean Corpuscular Volume 101.9 H Mean Corpuscular Hemoglobin 32.5 Mean Corpuscular Hemoglobin Concent 31.9 L Red Cell Distribution Width 14.5 Platelet Count 257 Mean Platelet Volume 10.5 H Neutrophils % Segmented Neutrophils % (Manual) 27 L Band Neutrophils % (Manual) 2 Lymphocytes % Lymphocytes % (Manual) 53 H Monocytes % Monocytes % (Manual) 2 Eosinophils % Eosinophils % (Manual) 1 Basophils % Basophils % (Manual) 15 H Nucleated Red Blood Cells % 0.0 Neutrophils # Neutrophils # (Manual) 0.5 L Band Neutrophils # 0.0 Absolute Lymphocytes (Manual) 0.9 Lymphocytes # Monocytes # Absolute Monocytes (Manual) 0.0 L Eosinophils # Basophils # Basophils # (Manual) 0.2 H Nucleated Red Blood Cells # Platelet Estimate NORMAL Giant Platelets 1 H Polychromasia 1+ Poikilocytosis 1+ Prothrombin Time 13.4 Prothrombin Time Ratio 1.0 INR International Normalized Ratio 1.02 Sodium Level 144 Potassium Level 3.7 Chloride Level 108 Carbon Dioxide Level 26 Anion Gap 14 Blood Urea Nitrogen 14 Creatinine 1.31 H Glucose Level 121 Calcium Level 9.0 Magnesium Level 1.6 L Medications Medications Current Medications Miscellaneous Information (* Miscellaneous Pharmacy Order) DC all Lovenox, Hepari... ONCE XX ; Start 01/31/17 at 13:30 Aspirin (Halfprin) 81 mg DAILY PO Last administered on 02/01/17 09:25; Admin Dose 81 MG; Start 01/31/17 at 16:00 Atorvastatin Calcium (Lipitor) 20 mg HS PO Last administered on 01/31/17 21:01 ; Admin Dose 20 MG; Start 01/31/17 at 21:00 Pantoprazole (Protonix Tab) 40 mg DAILY PO Last administered on 02/01/17 09:26 ; Admin Dose 40 MG; Start 01/31/17 at 16:00 Miscellaneous Information 100 mg 100 mg DAILY XX ; Start 02/01/17 at 09:00; Stop 02/20/17 at 09:01 Piperacillin Sod/ Tazobactam Sod (Zosyn 3.375gm/ 100 ml (Pmx)) 100 ml @ 200 mls /hr Q8 IVPB Last administered on 02/01/17 06:00; Admin Dose 200 MLS/HR; Start 01/31/17 at 16:00 Ondansetron HCl (Zofran Inj) 4 mg Q6H PRN IV NAUSEA AND/OR VOMITING; Start 01/31/17 at 14:30 Acetaminophen (Tylenol Tab) 650 mg Q6H PRN PO PAIN LEVEL 1-3 OR FEVER; Start 01/31/17 at 14:30 Docusate Sodium 100 mg 100 mg Q12H PRN PO CONSTIPATION; Start 01/31/17 at 14:30 Vancomycin HCl/ Sodium Chloride (Vancocin/NS) 150 ml @ 75 mls/hr Q24H IVPB ; Start 02/01/17 at 17:00 Guaifenesin (Mucinex) 600 mg BID PO Last administered on 02/01/17 09:25; Admin Dose 600 MG; Start 01/31/17 at 21:00 ROXIE VELARDE Feb 01, 2017 15:17
[2017-02-01] MEDS ORDERED: FUROSEMIDE 20 MG INJ IV ONE (15:30)
[2017-02-01 15:56] LABS: FLD RBC 1 /uL; FLD WBC 683 /cmm
[2017-02-01 16:27] LABS: FLUID LD 1637 U/L
[2017-02-01 16:28] LABS: FLUID TOTAL PROTEIN 4.8 g/dl; FLUID TYPE THORACENTESIS FLUID
[2017-02-01 16:38] LABS: FLUID GLUCOSE 117 mg/dl; FLUID TYPE THORACENTESIS FLUID
--- NOTE | 2017-02-01 16:46 | RADRPT ---
PROCEDURE: XR Chest. CLINICAL INDICATION: Shortness of breath. Post left thoracentesis. TECHNIQUE: Single frontal view. COMPARISON: 01/31/2017. FINDINGS: There is atelectasis at the lung bases, unchanged on the right and improved on the left. The heart is enlarged. There is a biventricular permanent pacemaker/internal cardiac defibrillator. There are small bilateral pleural effusions with the left pleural effusion now much smaller than see n previously. Multiple old healed right rib fractures are noted. Surgical clips are present in the r ight axillary region. There is no pneumothorax. IMPRESSION: 1. No pneumothorax following left thoracentesis. RPTAT: QQ .Amrit Eldridge MD, MD Date Time Electronically viewed and signed by .Amrit Eldridge MD, on 02/01/2017 16:46 .R/
[2017-02-01 16:48] LABS: FLD CLARITY HAZY; FLD COLOR YELLOW; FLD TYPE THORACENTESIS; PATH REVIEW? YES
[2017-02-01] MEDS ORDERED: VANCOMYCIN 750 MG in SOD CHLORIDE 0.9% 150 ML IVPB SCH (17:00)
[2017-02-01] MEDS: PALBOCICLIB 100 MG XX SCH (21:30)
[2017-02-01] MEDS: ATORVASTATIN 20 MG TAB PO SCH (21:47)
[2017-02-02] VITALS (12 sets, daily range): BP systolic 98–111; BP diastolic 52–64; PULSE 78–108; RESP 16–19
[2017-02-02] MEDS: PIPER-TAZO 3.375 GM IV (PMX) 100 ML IVPB SCH ×3 (06:37→21:46)
[2017-02-02] MEDS: ALBUTEROL 0.083% (NEB) 2.5 MG/3 ML AMP HHN SCH ×4 (08:17→20:48)
[2017-02-02 08:45] LABS: ABNORMAL IP MESSAGE 1; HEMATOCRIT 31.4 % (37.0-47.0); HEMOGLOBIN 10.2 g/dl (12.0-16.0); MEAN CORPUSCULAR HEMOGLOBIN 32.5 pg (29.0-33.0); MEAN CORPUSCULAR HGB CONC 32.5 g/dl (32.0-37.0); MEAN PLATELET VOLUME 10.4 fl (7.4-10.4); PLATELET COUNT 237 10^3/UL (140-415); RED BLOOD COUNT 3.14 10^6/ul (4.20-5.40); RED CELL DISTRIBUTION WIDTH 14.4 % (11.5-14.5); WHITE BLOOD COUNT 2.2 10^3/ul (4.8-10.8)
[2017-02-02 08:47] LABS: POSITIVE DIFF @See below
[2017-02-02] MEDS: PANTOPRAZOLE (EC) 40 MG TAB PO SCH (08:53)
[2017-02-02] MEDS: ASPIRIN (EC) 81 MG TAB PO SCH (08:53)
[2017-02-02] MEDS: GUAIFENESIN LA 600 MG TABSR PO SCH ×2 (08:53→21:40)
[2017-02-02 09:06] LABS: ALBUMIN 3.5 g/dl (3.3-4.9); CALCIUM 8.6 mg/dl (8.4-10.2); CREATININE 1.36 mg/dl (0.44-1.00); MAGNESIUM 2.1 mg/dl (1.7-2.5); PHOSPHORUS 4.2 mg/dl (2.5-4.9); POTASSIUM 3.6 mmol/L (3.5-5.1)
--- NOTE | 2017-02-02 09:24 | RADRPT ---
Vent Rate: 94 bpm RR Interval: 0 msec PA Interval: 122 msec QRS Duration: 128 msec QT Interval: 442 msec QTC Interval: 552 msec P-R-T [place]: 53 - 33 - 60 degrees Electronic ventricular pacemaker Electronically Signed By: Gaudencio Gordon [id number]
[2017-02-02 10:44] LABS: ANISOCYTOSIS 1+ (0-0); BASOPHILS % (M) 4 % (0-2); METAMYELOCYTES %M 1 % (0-0); MONOCYTES % (M) 4 % (0-11); PLATELET ESTIMATE NORMAL; POIKILOCYTOSIS 2+ (0-0); POLYCHROMASIA 3+ (0-0); REACTIVE LYMPHOCYTES% (M) 3 % (0-0)
--- NOTE | 2017-02-02 11:00 | CONS ---
Date/Time of Note Date/Time of Note DATE: 02/02/17 TIME: 10:57 Assessment/Plan Assessment/Plan Additional Assessment/Plan Chest x-ray was reviewed post thoracentesis which is showing marked improvement without any evidence of any infiltrative changes in the left lower lobe area. Assessment and recommendations; 1. Patient admitted with shortness of breath, discovered to have left pleural effusion possibly malignant in etiology based upon history of widely metastatic breast cancer. Status post thoracentesis with marked clinical and radiological improvement. 2. Leukopenia. Continue current treatment. Obtain follow-up chest x-ray in about a week on outpatient basis to rule out any recurrence of pleural effusion. Consultation Date/Type/Reason Admit Date/Time Jan 31, 2017 at 13:15 Initial Consult Date 02/01/17 Type of Consultation: Pulmonary Referring Provider: STEFANY BOYCE MD 24 HR Interval Summary Free Text/Dictation Patient's condition is stable. Reports decreased shortness of breath. Underwent left thoracentesis yesterday, 1.2 L of fluid was removed. Patient denies any wheezing, chest pain, coughing or sputum production. General exam; elderly woman, awake and alert. Currently in no distress. Exam/Review of Systems Vital Signs Vitals Vital Signs Date Time Temp Pulse Resp B/P Pulse Ox O2 Delivery O2 Flow Rate FiO2 02/02/17 08:17 4.0 02/02/17 08:17 102 20 95 Nasal Cannula 02/02/17 07:33 97.8 99/56 Intake and Output 02/01/17 02/01/17 02/02/17 15:00 23:00 07:00 Intake Total 1070 ml Balance 1070 ml Exam HEENT exam; supple neck, no JVD. No lymphadenopathy. Midline trachea. No thyromegaly. Patient has multiple carious teeth. Chest exam; diminished but clear breath sounds. S1-S2 audible, no murmurs. Pacemaker in left chest wall. There is a right mastectomy. Abdomen exam; soft, nontender. No organomegaly. Bowel sounds audible. Extremity exam; no peripheral edema. No clubbing. GAMBLING MONITOR exam; no focal deficit. Results Result Diagram: 02/02/17 0757 02/02/17 0757 Results 24 hrs Laboratory Tests Test 02/01/17 14:15 02/01/17 20:20 02/02/17 07:57 Pathologist Review (Hematology) YES Body Fluid Type THORACENTESIS FLUID Body Fluid Volume 800.0 Body Fluid Color YELLOW Body Fluid Appearance HAZY Body Fluid WBC 683 Body Fluid RBC (Auto) 1 Body Fluid Polynuclear WBCs (%) 25.0 Body Fluid Mononuclear Cells % Auto 75.0 Body Fluid Glucose 117 Body Fluid Total Protein 4.8 Body Fluid Lactate Dehydrogenase 1637 Lactate Dehydrogenase 801 H Total Protein 7.0 White Blood Count 2.2 #L Red Blood Count 3.14 L Hemoglobin 10.2 L Hematocrit 31.4 L Mean Corpuscular Volume 100.0 Mean Corpuscular Hemoglobin 32.5 Mean Corpuscular Hemoglobin Concent 32.5 Red Cell Distribution Width 14.4 Platelet Count 237 Mean Platelet Volume 10.4 Neutrophils % Segmented Neutrophils % (Manual) 70 Band Neutrophils % (Manual) 2 Lymphocytes % Lymphocytes % (Manual) 16 Reactive Lymphocytes % (Manual) 3 H Monocytes % Monocytes % (Manual) 4 Eosinophils % Basophils % Basophils % (Manual) 4 H Metamyelocytes % (manual) 1 H Nucleated Red Blood Cells % 0.0 Neutrophils # Neutrophils # (Manual) 1.5 L Band Neutrophils # 0.0 Absolute Lymphocytes (Manual) 0.3 L Lymphocytes # Reactive Lymphocytes # 0.0 Monocytes # Absolute Monocytes (Manual) 0.0 L Eosinophils # Basophils # Basophils # (Manual) 0.0 Metamyelocytes # 0.0 Nucleated Red Blood Cells # Platelet Estimate NORMAL Polychromasia 3+ Poikilocytosis 2+ Anisocytosis 1+ Sodium Level 139 Potassium Level 3.6 Chloride Level 104 Carbon Dioxide Level 28 Anion Gap 11 Blood Urea Nitrogen 14 Creatinine 1.36 H Glucose Level 129 Calcium Level 8.6 Phosphorus Level 4.2 Magnesium Level 2.1 Albumin 3.5 Medications Medications Current Medications Miscellaneous Information (* Miscellaneous Pharmacy Order) DC all Lovenox, Hepari... ONCE XX ; Start 01/31/17 at 13:30 Aspirin (Halfprin) 81 mg DAILY PO Last administered on 02/02/17 08:53; Admin Dose 81 MG; Start 01/31/17 at 16:00 Atorvastatin Calcium (Lipitor) 20 mg HS PO Last administered on 02/01/17 21:47 ; Admin Dose 20 MG; Start 01/31/17 at 21:00 Pantoprazole 40 mg 40 mg DAILY PO Last administered on 02/02/17 08:53; Admin Dose 40 MG; Start 01/31/17 at 16:00 Piperacillin Sod/ Tazobactam Sod (Zosyn 3.375gm/ 100 ml (Pmx)) 100 ml @ 200 mls /hr Q8 IVPB Last administered on 02/02/17 06:37; Admin Dose 200 MLS/HR; Start 01/31/17 at 16:00 Ondansetron HCl (Zofran Inj) 4 mg Q6H PRN IV NAUSEA AND/OR VOMITING; Start 01/31/17 at 14:30 Acetaminophen (Tylenol Tab) 650 mg Q6H PRN PO PAIN LEVEL 1-3 OR FEVER; Start 01/31/17 at 14:30 Docusate Sodium 100 mg 100 mg Q12H PRN PO CONSTIPATION; Start 01/31/17 at 14:30 Vancomycin HCl/ Sodium Chloride (Vancocin/NS) 150 ml @ 75 mls/hr Q24H IVPB Last administered on 02/01/17 17:04; Admin Dose 75 MLS/HR; Start 02/01/17 at 17 :00 Guaifenesin (Mucinex) 600 mg BID PO Last administered on 02/02/17 08:53; Admin Dose 600 MG; Start 01/31/17 at 21:00 Hydralazine HCl (Apresoline) 10 mg BID PO Last administered on 02/01/17 21:48 ; Admin Dose 10 MG; Start 02/01/17 at 21:00 Miscellaneous Information 100 mg HS XX Last administered on 02/01/17 21:30; Admin Dose 100 MG; Start 02/01/17 at 21:00; Stop 02/20/17 at 21:01 DAGOBERTO CAO Feb 02, 2017 11:00
--- NOTE | 2017-02-02 13:53 | CONS ---
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 Metastatic breast ca 6. leukopenia 7. PLeural effusions 8. REnal failure Recc: -Tele -serial ecg's -Follow rhythm/rate closely -continue low dose hydralazine as tolerated -Continue abx's and f/u cx data -Lasix diuresis as tolerated and follow volume status closely Problems: Consultation Date/Type/Reason Admit Date/Time Jan 31, 2017 at 13:15 Initial Consult Date 02/01/17 Type of Consultation: cardiology Reason for Consultation cardiomyopathy Referring Provider: STEFANY BOYCE MD Exam/Review of Systems Vital Signs Vitals Vital Signs Date Time Temp Pulse Resp B/P Pulse Ox O2 Delivery O2 Flow Rate FiO2 02/02/17 12:00 108 02/02/17 11:27 98.0 16 111/64 97 02/02/17 08:17 4.0 02/02/17 08:17 Nasal Cannula Intake and Output 02/01/17 02/01/17 02/02/17 15:00 23:00 07:00 Intake Total 1070 ml Balance 1070 ml Exam Review of Systems: CONSTITUTIONAL: No fevers, chills. PULMONARY: No sob CARDIOVASCULAR: No chest pain/palpitations GASTROINTESTINAL: No nausea/vomiting. GENITOURINARY: No hematuria/dysuria. MUSCULOSKELETAL: No myagias/arthalgias. PSYCHIATRIC: The patient denies depression. NEUROLOGIC: No weakness Constitutional: alert, oriented Psych: no complaints Head: normocephalic ENMT: mucosa pink and moist Neck: jvd (9 cm water), supple Respiratory: diminished breath sounds (at bases/B) Cardiovascular: regular rate and rhythm Gastrointestinal: non-tender, soft Musculoskeletal: muscle tone (normal) Extremities: edema (none) Neurological: other (No focakl deficits) Results Result Diagram: 02/02/17 0757 02/02/17 0757 Results 24 hrs Laboratory Tests Test 02/01/17 14:15 02/01/17 20:20 02/02/17 07:57 Pathologist Review (Hematology) YES Body Fluid Type THORACENTESIS FLUID Body Fluid Volume 800.0 Body Fluid Color YELLOW Body Fluid Appearance HAZY Body Fluid WBC 683 Body Fluid RBC (Auto) 1 Body Fluid Polynuclear WBCs (%) 25.0 Body Fluid Mononuclear Cells % Auto 75.0 Body Fluid Glucose 117 Body Fluid Total Protein 4.8 Body Fluid Lactate Dehydrogenase 1637 Lactate Dehydrogenase 801 H Total Protein 7.0 White Blood Count 2.2 #L Red Blood Count 3.14 L Hemoglobin 10.2 L Hematocrit 31.4 L Mean Corpuscular Volume 100.0 Mean Corpuscular Hemoglobin 32.5 Mean Corpuscular Hemoglobin Concent 32.5 Red Cell Distribution Width 14.4 Platelet Count 237 Mean Platelet Volume 10.4 Neutrophils % Segmented Neutrophils % (Manual) 70 Band Neutrophils % (Manual) 2 Lymphocytes % Lymphocytes % (Manual) 16 Reactive Lymphocytes % (Manual) 3 H Monocytes % Monocytes % (Manual) 4 Eosinophils % Basophils % Basophils % (Manual) 4 H Metamyelocytes % (manual) 1 H Nucleated Red Blood Cells % 0.0 Neutrophils # Neutrophils # (Manual) 1.5 L Band Neutrophils # 0.0 Absolute Lymphocytes (Manual) 0.3 L Lymphocytes # Reactive Lymphocytes # 0.0 Monocytes # Absolute Monocytes (Manual) 0.0 L Eosinophils # Basophils # Basophils # (Manual) 0.0 Metamyelocytes # 0.0 Nucleated Red Blood Cells # Platelet Estimate NORMAL Polychromasia 3+ Poikilocytosis 2+ Anisocytosis 1+ Sodium Level 139 Potassium Level 3.6 Chloride Level 104 Carbon Dioxide Level 28 Anion Gap 11 Blood Urea Nitrogen 14 Creatinine 1.36 H Glucose Level 129 Calcium Level 8.6 Phosphorus Level 4.2 Magnesium Level 2.1 Albumin 3.5 Medications Medications Current Medications Miscellaneous Information (* Miscellaneous Pharmacy Order) DC all Lovenox, Hepari... ONCE XX ; Start 01/31/17 at 13:30 Aspirin (Halfprin) 81 mg DAILY PO Last administered on 02/02/17 08:53; Admin Dose 81 MG; Start 01/31/17 at 16:00 Atorvastatin Calcium (Lipitor) 20 mg HS PO Last administered on 02/01/17 21:47 ; Admin Dose 20 MG; Start 01/31/17 at 21:00 Pantoprazole 40 mg 40 mg DAILY PO Last administered on 02/02/17 08:53; Admin Dose 40 MG; Start 01/31/17 at 16:00 Piperacillin Sod/ Tazobactam Sod (Zosyn 3.375gm/ 100 ml (Pmx)) 100 ml @ 200 mls /hr Q8 IVPB Last administered on 02/02/17 06:37; Admin Dose 200 MLS/HR; Start 01/31/17 at 16:00 Ondansetron HCl (Zofran Inj) 4 mg Q6H PRN IV NAUSEA AND/OR VOMITING; Start 01/31/17 at 14:30 Acetaminophen (Tylenol Tab) 650 mg Q6H PRN PO PAIN LEVEL 1-3 OR FEVER; Start 01/31/17 at 14:30 Docusate Sodium 100 mg 100 mg Q12H PRN PO CONSTIPATION; Start 01/31/17 at 14:30 Vancomycin HCl/ Sodium Chloride (Vancocin/NS) 150 ml @ 75 mls/hr Q24H IVPB Last administered on 02/01/17 17:04; Admin Dose 75 MLS/HR; Start 02/01/17 at 17 :00 Guaifenesin (Mucinex) 600 mg BID PO Last administered on 02/02/17 08:53; Admin Dose 600 MG; Start 01/31/17 at 21:00 Hydralazine HCl (Apresoline) 10 mg BID PO Last administered on 02/01/17 21:48 ; Admin Dose 10 MG; Start 02/01/17 at 21:00 Miscellaneous Information 100 mg HS XX Last administered on 02/01/17 21:30; Admin Dose 100 MG; Start 02/01/17 at 21:00; Stop 02/20/17 at 21:01 ROXIE VELARDE Feb 02, 2017 13:53
--- NOTE | 2017-02-02 16:42 | PN ---
Date/Time of Note Date/Time of Note DATE: 02/02/17 TIME: 16:36 Assessment/Plan VTE Prophylaxis VTE Prophylaxis Intervention: SCD's Lines/Catheters [facility] Saline Lock Urinary Cath still in place: No Assessment/Plan Assessment/Plan 1. Left sided pleural effusion with consolidation s/p thoracentesis - Patient tolerated procedure well and fluid studies show exudative type fluid. Will await cultures - CXR shows worsening congestion and edema within the left lung with presumed worsening consolidation and effusion in the left lung. - CT chest showed Large left and moderate right pleural effusions with associated atelectasis. 2. Left sided pneumonia - failed outpatient treatment and started on Vanc and Zosyn. Will deescalate with improvement - Nebs PRN for SOB 3. Leukopenia secondary to infection vs chemotherapy - will continue to monitor. trending upward - on broad spectrum antibiotics - Per son patient follows with a Dr. Tay 4. Cardiomyopathy with last documented ejection fraction of 45% while bi-V paced 5. H/o Bivent ICD - in need of battery replacement - once stable will replace - Dr. Pineda on board and consultation appreciated. Plans for next Monday but son was under impression it will be tomorrow. Spoke with Dr. Beal who will clarify 6. H/o Breast CA with mets to pelvis - On PO chemo which patient brought her own medication supply with her 7. Anemia of chronic disease - monitor H/H 8. KAYLEE - Will renally dose medications and monitor Cr/BUN Subjective 24 Hr Interval Summary Free Text/Dictation Patient doing well after thoracentesis and states breathing more comfortably. still experiencing dry cough. Denies any new complaints and no acute overnight events. Exam/Review of Systems Vital Signs Vitals Vital Signs Date Time Temp Pulse Resp B/P Pulse Ox O2 Delivery O2 Flow Rate FiO2 02/02/17 16:28 103 20 95 Nasal Cannula 4.0 02/02/17 16:01 98.3 98/52 Intake and Output 02/01/17 02/01/17 02/02/17 15:00 23:00 07:00 Intake Total 1070 ml Balance 1070 ml Exam Constitutional: alert, oriented, well developed, No distress Psych: nl mood/affect Head: atraumatic, normocephalic Eyes: EOMI, PERRL, nl sclera ENMT: mucosa pink and moist Neck: non-tender, supple Respiratory: congested cough, diminished breath sounds (left lobe), No labored breathing, Cardiovascular: regular rate and rhythm, No edema, No murmurs/extra sounds Gastrointestinal: bowel sounds, non-tender, soft, No distended, No rebound or guarding Musculoskeletal: nl extremities to inspection Extremities: normal pulses, No clubbing, No cyanosis, No edema Neurological: RATCHET SETTER II-XII intact, nl mental status, nl speech Skin: nl turgor Lymph: nl lymph nodes Results Result Diagram: 02/02/17 0757 02/02/17 0757 Results 24 hrs Laboratory Tests Test 02/01/17 20:20 02/02/17 07:57 Lactate Dehydrogenase 801 H Total Protein 7.0 White Blood Count 2.2 #L Red Blood Count 3.14 L Hemoglobin 10.2 L Hematocrit 31.4 L Mean Corpuscular Volume 100.0 Mean Corpuscular Hemoglobin 32.5 Mean Corpuscular Hemoglobin Concent 32.5 Red Cell Distribution Width 14.4 Platelet Count 237 Mean Platelet Volume 10.4 Neutrophils % Segmented Neutrophils % (Manual) 70 Band Neutrophils % (Manual) 2 Lymphocytes % Lymphocytes % (Manual) 16 Reactive Lymphocytes % (Manual) 3 H Monocytes % Monocytes % (Manual) 4 Eosinophils % Basophils % Basophils % (Manual) 4 H Metamyelocytes % (manual) 1 H Nucleated Red Blood Cells % 0.0 Neutrophils # Neutrophils # (Manual) 1.5 L Band Neutrophils # 0.0 Absolute Lymphocytes (Manual) 0.3 L Lymphocytes # Reactive Lymphocytes # 0.0 Monocytes # Absolute Monocytes (Manual) 0.0 L Eosinophils # Basophils # Basophils # (Manual) 0.0 Metamyelocytes # 0.0 Nucleated Red Blood Cells # Platelet Estimate NORMAL Polychromasia 3+ Poikilocytosis 2+ Anisocytosis 1+ Sodium Level 139 Potassium Level 3.6 Chloride Level 104 Carbon Dioxide Level 28 Anion Gap 11 Blood Urea Nitrogen 14 Creatinine 1.36 H Glucose Level 129 Calcium Level 8.6 Phosphorus Level 4.2 Magnesium Level 2.1 Albumin 3.5 Medications Medications Current Medications Miscellaneous Information (* Miscellaneous Pharmacy Order) DC all Lovenox, Hepari... ONCE XX ; Start 01/31/17 at 13:30 Aspirin (Halfprin) 81 mg DAILY PO Last administered on 02/02/17t 08:53; Admin Dose 81 MG; Start 01/31/17 at 16:00 Atorvastatin Calcium (Lipitor) 20 mg HS PO Last administered on 02/01/17 21:47 ; Admin Dose 20 MG; Start 01/31/17 at 21:00 Pantoprazole 40 mg 40 mg DAILY PO Last administered on 02/02/17 08:53; Admin Dose 40 MG; Start 01/31/17 at 16:00 Piperacillin Sod/ Tazobactam Sod (Zosyn 3.375gm/ 100 ml (Pmx)) 100 ml @ 200 mls /hr Q8 IVPB Last administered on 02/02/17 15:05; Admin Dose 200 MLS/HR; Start 01/31/17 at 16:00 Ondansetron HCl (Zofran Inj) 4 mg Q6H PRN IV NAUSEA AND/OR VOMITING; Start 01/31/17 at 14:30 Acetaminophen (Tylenol Tab) 650 mg Q6H PRN PO PAIN LEVEL 1-3 OR FEVER; Start 01/31/17 at 14:30 Docusate Sodium (Colace) 100 mg Q12H PRN PO CONSTIPATION; Start 01/31/17 at 14: 30 Guaifenesin (Mucinex) 600 mg BID PO Last administered on 02/02/17 08:53; Admin Dose 600 MG; Start 01/31/17 at 21:00 Hydralazine HCl (Apresoline) 10 mg BID PO Last administered on 02/01/17 21:48 ; Admin Dose 10 MG; Start 02/01/17 at 21:00 Miscellaneous Information 100 mg 100 mg HS XX Last administered on 02/01/17 21 :30; Admin Dose 100 MG; Start 02/01/17 at 21:00; Stop 02/20/17 at 21:01 Vancomycin HCl (Vancocin) 100 ml @ 100 mls/hr Q24H IVPB ; Start 02/02/17 at 17: 00 GARY CROSS MD Feb 02, 2017 16:42
[2017-02-02] MEDS ORDERED: VANCOMYCIN 500MG/NS (PMX) 100 ML IVPB SCH (17:00)
[2017-02-02] MEDS: PALBOCICLIB 100 MG XX SCH (21:00)
[2017-02-02] MEDS: ATORVASTATIN 20 MG TAB PO SCH (21:41)
[2017-02-03] VITALS (11 sets, daily range): BP systolic 99–112; BP diastolic 57–64; PULSE 89–111; RESP 15–18
[2017-02-03] MEDS: PIPER-TAZO 3.375 GM IV (PMX) 100 ML IVPB SCH ×2 (05:43→14:50)
[2017-02-03 06:30] LABS: ABNORMAL IP MESSAGE 1; BASOPHIL # 0.1 10^3/ul (0.0-0.1); BASOPHILS % 2.2 % (0.0-2.0); EOSINOPHILS # 0.1 10^3/ul (0.0-0.5); EOSINOPHILS % 4.1 % (0.0-7.0); HEMATOCRIT 30.5 % (37.0-47.0); HEMOGLOBIN 10.2 g/dl (12.0-16.0); LYMPHOCYTES # 0.3 10^3/ul (0.8-2.9); LYMPHOCYTES % 12.4 % (15.0-51.0); MEAN CORPUSCULAR HEMOGLOBIN 33.6 pg (29.0-33.0); MEAN CORPUSCULAR HGB CONC 33.4 g/dl (32.0-37.0); MEAN CORPUSCULAR VOLUME 100.3 fl (82.0-101.0); MEAN PLATELET VOLUME 10.2 fl (7.4-10.4); MONOCYTE # 0.1 10^3/ul (0.3-0.9); MONOCYTES % 5.2 % (0.0-11.0); NEUTROPHILS % 74.6 % (39.0-77.0); PLATELET COUNT 216 10^3/UL (140-415); RED BLOOD COUNT 3.04 10^6/ul (4.20-5.40); RED CELL DISTRIBUTION WIDTH 14.3 % (11.5-14.5); WHITE BLOOD COUNT 2.7 10^3/ul (4.8-10.8)
[2017-02-03 07:03] LABS: ALBUMIN 3.4 g/dl (3.3-4.9); CALCIUM 8.6 mg/dl (8.4-10.2); CREATININE 1.25 mg/dl (0.44-1.00); MAGNESIUM 1.9 mg/dl (1.7-2.5); PHOSPHORUS 3.6 mg/dl (2.5-4.9); POTASSIUM 3.6 mmol/L (3.5-5.1)
[2017-02-03 07:15] LABS: POSITIVE DIFF @See below
[2017-02-03] MEDS: ALBUTEROL 0.083% (NEB) 2.5 MG/3 ML AMP HHN SCH ×4 (08:29→20:55)
[2017-02-03] MEDS: ASPIRIN (EC) 81 MG TAB PO SCH (08:47)
[2017-02-03] MEDS: PANTOPRAZOLE (EC) 40 MG TAB PO SCH (08:47)
[2017-02-03] MEDS: GUAIFENESIN LA 600 MG TABSR PO SCH ×2 (08:47→20:24)
--- NOTE | 2017-02-03 15:04 | PN ---
Date/Time of Note Date/Time of Note DATE: 02/03/17 TIME: 14:58 Assessment/Plan VTE Prophylaxis VTE Prophylaxis Intervention: SCD's Lines/Catheters IV [facility]from [facility] Saline Lock Urinary Cath still in place: No Assessment/Plan Assessment/Plan 1. Left sided pleural effusion with consolidation s/p thoracentesis - Patient doing well and no longer requiring supplemental O2. - Fluid studies show exudative type fluid and no grow to date. AFB negative - repeat CXR post thoracentesis showed atelectasis at the lung bases, small bilateral pleural effusions with the left pleural effusion now much smaller than seen previously. Multiple old healed right rib fractures are noted. Surgical clips are present in the right axillary region. There is no pneumothorax. 2. Left sided pneumonia- resolved - No signs of infection on CXR and WBC have been trending up and remains afebrile - Nebs PRN for SOB 3. Leukopenia secondary to infection vs chemotherapy - will continue to monitor. trending upward - Per son patient follows with a Dr. Tay 4. Cardiomyopathy with last documented ejection fraction of 45% while bi-V paced 5. H/o Bivent ICD - in need of battery replacement - once stable will replace. Plans for Monday as outpatient per Dr. Beal. - Cardiology input appreciated 6. H/o Breast CA with mets to pelvis - On PO chemo which patient brought her own medication supply with her 7. Anemia of chronic disease - monitor H/H 8. KAYLEE - Will renally dose medications and monitor Cr/BUN - improving 9. Disposition - If remains stable, will d/c in am. Subjective 24 Hr Interval Summary Free Text/Dictation Constitutional: alert, oriented, well developed, No distress Head: atraumatic, normocephalic ENMT: mucosa pink and moist Neck: non-tender, supple Respiratory: diminished breath sounds at bases bilaterally, No labored breathing, no wheezing or crackles Cardiovascular: regular rate and rhythm, No edema, No murmurs/extra sounds Gastrointestinal: bowel sounds, non-tender, soft, No distended, No rebound or guarding Musculoskeletal: nl extremities to inspection Extremities: normal pulses, No clubbing, No cyanosis, No edema Neurological: TOE FORMER STITCHDOWNS II-XII intact, nl mental status, nl speech Skin: nl turgor Exam/Review of Systems Vital Signs Vitals Vital Signs Date Time Temp Pulse Resp B/P Pulse Ox O2 Delivery O2 Flow Rate FiO2 02/03/17 13:26 4.0 02/03/17 13:26 102 22 96 Nasal Cannula 02/03/17 11:59 98.7 112/60 Intake and Output 02/02/17 02/02/17 02/03/17 14:59 22:59 06:59 Intake Total 400 ml 1200 ml 200 ml Balance 400 ml 1200 ml 200 ml Results Result Diagram: 02/03/17 0552 02/03/17 0552 Results 24 hrs Laboratory Tests Test 02/03/17 05:52 White Blood Count 2.7 #L Red Blood Count 3.04 L Hemoglobin 10.2 L Hematocrit 30.5 L Mean Corpuscular Volume 100.3 Mean Corpuscular Hemoglobin 33.6 H Mean Corpuscular Hemoglobin Concent 33.4 Red Cell Distribution Width 14.3 Platelet Count 216 Mean Platelet Volume 10.2 Neutrophils % 74.6 Lymphocytes % 12.4 L Monocytes % 5.2 Eosinophils % 4.1 Basophils % 2.2 H Nucleated Red Blood Cells % 0.0 Neutrophils # 2.0 Lymphocytes # 0.3 L Monocytes # 0.1 L Eosinophils # 0.1 Basophils # 0.1 Nucleated Red Blood Cells # 0.0 Sodium Level 138 Potassium Level 3.6 Chloride Level 106 Carbon Dioxide Level 26 Anion Gap 10 Blood Urea Nitrogen 11 Creatinine 1.25 H Glucose Level 112 Calcium Level 8.6 Phosphorus Level 3.6 Magnesium Level 1.9 Albumin 3.4 Medications Medications Current Medications Miscellaneous Information (* Miscellaneous Pharmacy Order) DC all Lovenox, Hepari... ONCE XX ; Start 01/31/17 at 13:30 Aspirin (Halfprin) 81 mg DAILY PO Last administered on 02/03/17 08:47; Admin Dose 81 MG; Start 01/31/17 at 16:00 Atorvastatin Calcium (Lipitor) 20 mg HS PO Last administered on 02/02/17 21:41 ; Admin Dose 20 MG; Start 01/31/17 at 21:00 Pantoprazole 40 mg 40 mg DAILY PO Last administered on 02/03/17 08:47; Admin Dose 40 MG; Start 01/31/17 at 16:00 Piperacillin Sod/ Tazobactam Sod (Zosyn 3.375gm/ 100 ml (Pmx)) 100 ml @ 200 mls /hr Q8 IVPB Last administered on 02/03/17 14:50; Admin Dose 200 MLS/HR; Start 01/31/17 at 16:00 Ondansetron HCl (Zofran Inj) 4 mg Q6H PRN IV NAUSEA AND/OR VOMITING; Start 01/31/17 at 14:30 Acetaminophen (Tylenol Tab) 650 mg Q6H PRN PO PAIN LEVEL 1-3 OR FEVER; Start 01/31/17 at 14:30 Docusate Sodium (Colace) 100 mg Q12H PRN PO CONSTIPATION; Start 01/31/17 at 14: 30 Guaifenesin (Mucinex) 600 mg BID PO Last administered on 02/03/17 08:47; Admin Dose 600 MG; Start 01/31/17 at 21:00 Hydralazine HCl (Apresoline) 10 mg BID PO Last administered on 02/01/17 21:48 ; Admin Dose 10 MG; Start 02/01/17 at 21:00 Miscellaneous Information 100 mg 100 mg HS XX Last administered on 02/01/17 21 :30; Admin Dose 100 MG; Start 02/01/17 at 21:00; Stop 02/20/17 at 21:01 Vancomycin HCl (Vancocin) 100 ml @ 100 mls/hr Q24H IVPB Last administered on 02/02/17 17:51; Admin Dose 100 MLS/HR; Start 02/02/17 at 17:00 Miscellaneous Information (*Rx Drug Level Order Reminder*) 1 ONCE ONCE XX ; Start 02/03/17 at 16:00; Stop 02/03/17 at 16:01 GARY CROSS MD Feb 03, 2017 15:04
--- NOTE | 2017-02-03 15:32 | CONS ---
Date/Time of Note Date/Time of Note DATE: 02/03/17 TIME: 15:30 Consult Date/Type/Reason Admit Date/Time Jan 31, 2017 at 13:15 Initial Consult Date 02/01/17 Type of Consultation: Pulmonary Ordering Provider: STEFANY BOYCE MD Subjective Patient comfortable postthoracentesis. No shortness of breath this morning. Objective Vital Signs Date Time Temp Pulse Resp B/P Pulse Ox O2 Delivery O2 Flow Rate FiO2 02/03/17 13:26 4.0 02/03/17 13:26 102 22 96 Nasal Cannula 02/03/17 11:59 98.7 112/60 Intake and Output 02/02/17 02/02/17 02/03/17 15:00 23:00 07:00 Intake Total 400 ml 1200 ml 200 ml Balance 400 ml 1200 ml 200 ml Exam GENERAL: Elderly lady comfortable at rest. VITAL SIGNS: per chart NECK: Supple. No JVD or lymphadenopathy. CARDIAC EXAM: S1, S2. No added sounds or murmurs. CHEST: Diminished air entry both lung bases. ABDOMEN: Soft, nontender. No guarding or rebound. EXTREMITIES: No cyanosis, clubbing or edema. NEUROLOGIC: Generalized weakness. No focal deficits. Results/Medications Result Diagram: 02/03/17 0552 02/03/17 0552 Results 24 hrs Laboratory Tests Test 02/03/17 05:52 White Blood Count 2.7 #L Red Blood Count 3.04 L Hemoglobin 10.2 L Hematocrit 30.5 L Mean Corpuscular Volume 100.3 Mean Corpuscular Hemoglobin 33.6 H Mean Corpuscular Hemoglobin Concent 33.4 Red Cell Distribution Width 14.3 Platelet Count 216 Mean Platelet Volume 10.2 Neutrophils % 74.6 Lymphocytes % 12.4 L Monocytes % 5.2 Eosinophils % 4.1 Basophils % 2.2 H Nucleated Red Blood Cells % 0.0 Neutrophils # 2.0 Lymphocytes # 0.3 L Monocytes # 0.1 L Eosinophils # 0.1 Basophils # 0.1 Nucleated Red Blood Cells # 0.0 Sodium Level 138 Potassium Level 3.6 Chloride Level 106 Carbon Dioxide Level 26 Anion Gap 10 Blood Urea Nitrogen 11 Creatinine 1.25 H Glucose Level 112 Calcium Level 8.6 Phosphorus Level 3.6 Magnesium Level 1.9 Albumin 3.4 Medications Current Medications Miscellaneous Information (* Miscellaneous Pharmacy Order) DC all Lovenox, Hepari... ONCE XX ; Start 01/31/17 at 13:30 Aspirin (Halfprin) 81 mg DAILY PO Last administered on 02/03/17 08:47; Admin Dose 81 MG; Start 01/31/17 at 16:00 Atorvastatin Calcium (Lipitor) 20 mg HS PO Last administered on 02/02/17 21:41 ; Admin Dose 20 MG; Start 01/31/17 at 21:00 Pantoprazole (Protonix Tab) 40 mg DAILY PO Last administered on 02/03/17 08:47 ; Admin Dose 40 MG; Start 01/31/17 at 16:00 Ondansetron HCl (Zofran Inj) 4 mg Q6H PRN IV NAUSEA AND/OR VOMITING; Start 01/31/17 at 14:30 Acetaminophen (Tylenol Tab) 650 mg Q6H PRN PO PAIN LEVEL 1-3 OR FEVER; Start 01/31/17 at 14:30 Docusate Sodium (Colace) 100 mg Q12H PRN PO CONSTIPATION; Start 01/31/17 at 14: 30 Guaifenesin (Mucinex) 600 mg BID PO Last administered on 02/03/17 08:47; Admin Dose 600 MG; Start 01/31/17 at 21:00 Hydralazine HCl (Apresoline) 10 mg BID PO Last administered on 02/01/17 21:48 ; Admin Dose 10 MG; Start 02/01/17 at 21:00 Miscellaneous Information 100 mg HS XX Last administered on 02/01/17 21:30; Admin Dose 100 MG; Start 02/01/17 at 21:00; Stop 02/20/17 at 21:01 Assessment/Plan Chief Complaint/Hosp Course Assessment 1. Bilateral pleural effusions likely secondary to underlying breast cancer status post thoracentesis. 2. Leukopenia. Recommendations 1. Follow-up with primary care physician and hematology 2. Recommend repeat chest x-ray in next 2-3 weeks 3. If has recurrent pleural effusions will require pleurodesis and Pleurx catheter placement. Agree with discharge planning Problems: STAN MAC MD, [facility] Feb 03, 2017 15:32
--- NOTE | 2017-02-03 19:28 | CONS ---
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 Metastatic breast ca 6. leukopenia 7. PLeural effusions 8. REnal failure Recc: -Tele -serial ecg's -Follow rhythm/rate closely -continue low dose hydralazine as tolerated and should consider starting low dose BB -Continue abx's and f/u cx data -Contineu asa -Follow volume status closely -IF WBC ok then d/c planning with generator change scheduled for monday as able Problems: Consultation Date/Type/Reason Admit Date/Time Jan 31, 2017 at 13:15 Initial Consult Date 02/01/17 Type of Consultation: cardiology Reason for Consultation cardiomyopathy Referring Provider: STEFANY BOYCE MD Exam/Review of Systems Vital Signs Vitals Vital Signs Date Time Temp Pulse Resp B/P Pulse Ox O2 Delivery O2 Flow Rate FiO2 02/03/17 16:54 4.0 02/03/17 16:54 103 20 96 Nasal Cannula 02/03/17 15:32 98.6 105/60 Intake and Output 02/02/17 02/02/17 02/03/17 15:00 23:00 07:00 Intake Total 400 ml 1200 ml 200 ml Balance 400 ml 1200 ml 200 ml Exam Review of Systems: CONSTITUTIONAL: No fevers, chills. PULMONARY: No sob CARDIOVASCULAR: No chest pain/palpitations GASTROINTESTINAL: No nausea/vomiting. GENITOURINARY: No hematuria/dysuria. MUSCULOSKELETAL: No myagias/arthalgias. PSYCHIATRIC: The patient denies depression. NEUROLOGIC: No weakness Constitutional: alert, oriented Psych: no complaints Head: normocephalic ENMT: mucosa pink and moist Neck: jvd, supple Respiratory: diminished breath sounds (at bases/B) Cardiovascular: regular rate and rhythm Gastrointestinal: soft Musculoskeletal: muscle tone Extremities: other (No focal deficits) Results Result Diagram: 02/03/17 0552 02/03/17 0552 Results 24 hrs Laboratory Tests Test 02/03/17 05:52 White Blood Count 2.7 #L Red Blood Count 3.04 L Hemoglobin 10.2 L Hematocrit 30.5 L Mean Corpuscular Volume 100.3 Mean Corpuscular Hemoglobin 33.6 H Mean Corpuscular Hemoglobin Concent 33.4 Red Cell Distribution Width 14.3 Platelet Count 216 Mean Platelet Volume 10.2 Neutrophils % 74.6 Lymphocytes % 12.4 L Monocytes % 5.2 Eosinophils % 4.1 Basophils % 2.2 H Nucleated Red Blood Cells % 0.0 Neutrophils # 2.0 Lymphocytes # 0.3 L Monocytes # 0.1 L Eosinophils # 0.1 Basophils # 0.1 Nucleated Red Blood Cells # 0.0 Sodium Level 138 Potassium Level 3.6 Chloride Level 106 Carbon Dioxide Level 26 Anion Gap 10 Blood Urea Nitrogen 11 Creatinine 1.25 H Glucose Level 112 Calcium Level 8.6 Phosphorus Level 3.6 Magnesium Level 1.9 Albumin 3.4 Medications Medications Current Medications Miscellaneous Information (* Miscellaneous Pharmacy Order) DC all Lovenox, Hepari... ONCE XX ; Start 01/31/17 at 13:30 Aspirin (Halfprin) 81 mg DAILY PO Last administered on 02/03/17 08:47; Admin Dose 81 MG; Start 01/31/17 at 16:00 Atorvastatin Calcium (Lipitor) 20 mg HS PO Last administered on 02/02/17 21:41 ; Admin Dose 20 MG; Start 01/31/17 at 21:00 Pantoprazole (Protonix Tab) 40 mg DAILY PO Last administered on 02/03/17 08:47 ; Admin Dose 40 MG; Start 01/31/17 at 16:00 Ondansetron HCl (Zofran Inj) 4 mg Q6H PRN IV NAUSEA AND/OR VOMITING; Start 01/31/17 at 14:30 Acetaminophen (Tylenol Tab) 650 mg Q6H PRN PO PAIN LEVEL 1-3 OR FEVER; Start 01/31/17 at 14:30 Docusate Sodium (Colace) 100 mg Q12H PRN PO CONSTIPATION; Start 01/31/17 at 14: 30 Guaifenesin (Mucinex) 600 mg BID PO Last administered on 02/03/17 08:47; Admin Dose 600 MG; Start 01/31/17 at 21:00 Hydralazine HCl (Apresoline) 10 mg BID PO Last administered on 02/01/17 21:48 ; Admin Dose 10 MG; Start 02/01/17 at 21:00 Miscellaneous Information 100 mg HS XX ; Start 02/03/17 at 21:00; Stop at 21:01 ROXIE VELARDE Feb 03, 2017 19:28
[2017-02-03] MEDS: ATORVASTATIN 20 MG TAB PO SCH (20:24)
[2017-02-03] MEDS ORDERED: PALBOCICLIB 100 MG XX SCH (21:00)
[2017-02-03] MEDS: PALBOCICLIB 100 MG PO SCH (22:00)
[2017-02-04] VITALS (11 sets, daily range): BP systolic 99–112; BP diastolic 56–65; PULSE 95–103; RESP 15–19
[2017-02-04 07:20] LABS: ABNORMAL IP MESSAGE 1; BASOPHIL # 0.1 10^3/ul (0.0-0.1); BASOPHILS % 2.5 % (0.0-2.0); EOSINOPHILS # 0.1 10^3/ul (0.0-0.5); EOSINOPHILS % 4.6 % (0.0-7.0); HEMATOCRIT 30.1 % (37.0-47.0); HEMOGLOBIN 9.7 g/dl (12.0-16.0); LYMPHOCYTES # 0.3 10^3/ul (0.8-2.9); LYMPHOCYTES % 12.9 % (15.0-51.0); MEAN CORPUSCULAR HEMOGLOBIN 32.1 pg (29.0-33.0); MEAN CORPUSCULAR HGB CONC 32.2 g/dl (32.0-37.0); MEAN CORPUSCULAR VOLUME 99.7 fl (82.0-101.0); MEAN PLATELET VOLUME 9.7 fl (7.4-10.4); MONOCYTE # 0.2 10^3/ul (0.3-0.9); NEUTROPHIL # 1.7 10^3/ul (1.6-7.5); NEUTROPHILS % 69.2 % (39.0-77.0); PLATELET COUNT 189 10^3/UL (140-415); RED BLOOD COUNT 3.02 10^6/ul (4.20-5.40); RED CELL DISTRIBUTION WIDTH 14.2 % (11.5-14.5); WHITE BLOOD COUNT 2.4 10^3/ul (4.8-10.8)
[2017-02-04 07:22] LABS: POSITIVE DIFF @See below
[2017-02-04 07:38] LABS: ALBUMIN 3.3 g/dl (3.3-4.9); CALCIUM 8.4 mg/dl (8.4-10.2); CREATININE 1.13 mg/dl (0.44-1.00); MAGNESIUM 1.8 mg/dl (1.7-2.5); PHOSPHORUS 3.1 mg/dl (2.5-4.9); POTASSIUM 3.7 mmol/L (3.5-5.1)
[2017-02-04] MEDS: ALBUTEROL 0.083% (NEB) 2.5 MG/3 ML AMP HHN SCH ×4 (08:37→20:09)
[2017-02-04] MEDS: GUAIFENESIN LA 600 MG TABSR PO SCH ×2 (09:23→21:10)
[2017-02-04] MEDS: PANTOPRAZOLE (EC) 40 MG TAB PO SCH (09:23)
[2017-02-04] MEDS: ASPIRIN (EC) 81 MG TAB PO SCH (09:23)
--- NOTE | 2017-02-04 13:23 | PN ---
Date/Time of Note Date/Time of Note DATE: 02/04/17 TIME: 13:17 Assessment/Plan VTE Prophylaxis VTE Prophylaxis Intervention: SCD's Lines/Catheters IV Catheter Type (from Nrs): Saline Lock Urinary Cath still in place: No Assessment/Plan Assessment/Plan 1. Left sided pleural effusion with consolidation s/p thoracentesis - Patient has been requiring supplemental O2 and was placed on 4L this am, saturating 90%. - Will repeat CXR to reassess pleural effusions - Continue O2 as needed and wean to maintain saturations >90% - Discussed with son findings and agreeable to continue monitoring mother as inpatient - Fluid studies show exudative type fluid and no grow to date. AFB negative 2. Left sided pneumonia- resolved - No signs of infection on CXR and WBC have been trending up and remains afebrile - Nebs PRN for SOB 3. Leukopenia secondary to infection vs chemotherapy - will continue to monitor. trending upward - Per son patient follows with a Dr. Tay 4. Cardiomyopathy with last documented ejection fraction of 45% while bi-V paced - increased Coreg due to persistent tachycardia 5. H/o Bivent ICD - in need of battery replacement - once stable will replace. Plans for Monday as outpatient. - Cardiology input appreciated 6. H/o Breast CA with mets to pelvis - On PO chemo which patient brought her own medication supply with her 7. Anemia of chronic disease - monitor H/H 8. KAYLEE - Will renally dose medications and monitor Cr/BUN - improving 9. Disposition - continue monitoring in tele for 24-48hr due to new increase need for O2 Subjective 24 Hr Interval Summary Free Text/Dictation Patient states still experiencing some trouble with breathing but significantly better than time of admission. Does not use O2 at home and has been requiring 4L. She has been desaturating to the 80s on room air. No acute overnight events. Exam/Review of Systems Vital Signs Vitals Vital Signs Date Time Temp Pulse Resp B/P Pulse Ox O2 Delivery O2 Flow Rate FiO2 02/04/17 12:24 Nasal Cannula 2.0 02/04/17 12:22 98 18 93 02/04/17 11:49 98.3 106/56 Intake and Output 02/03/17 02/03/17 02/04/17 15:00 23:00 07:00 Intake Total 500 ml 360 ml Balance 500 ml 360 ml Exam Constitutional: alert, oriented, well developed, No distress Head: atraumatic, normocephalic Neck: non-tender, supple Respiratory: diminished breath sounds at bases bilaterally, no wheezing or crackles Cardiovascular: regular rate and rhythm, No edema, No murmurs/extra sounds Gastrointestinal: bowel sounds, non-tender, soft, No distended, No rebound or guarding Musculoskeletal: nl extremities to inspection Extremities: normal pulses, No clubbing, No cyanosis, No edema Skin: nl turgor Results Result Diagram: 02/04/17 0708 02/04/17 0708 Results 24 hrs Laboratory Tests Test 02/04/17 07:08 White Blood Count 2.4 L Red Blood Count 3.02 L Hemoglobin 9.7 L Hematocrit 30.1 L Mean Corpuscular Volume 99.7 Mean Corpuscular Hemoglobin 32.1 Mean Corpuscular Hemoglobin Concent 32.2 Red Cell Distribution Width 14.2 Platelet Count 189 Mean Platelet Volume 9.7 Neutrophils % 69.2 Lymphocytes % 12.9 L Monocytes % 10.0 Eosinophils % 4.6 Basophils % 2.5 H Nucleated Red Blood Cells % 0.0 Neutrophils # 1.7 Lymphocytes # 0.3 L Monocytes # 0.2 L Eosinophils # 0.1 Basophils # 0.1 Nucleated Red Blood Cells # 0.0 Sodium Level 139 Potassium Level 3.7 Chloride Level 106 Carbon Dioxide Level 28 Anion Gap 9 Blood Urea Nitrogen 10 Creatinine 1.13 H Glucose Level 111 Calcium Level 8.4 Phosphorus Level 3.1 Magnesium Level 1.8 Albumin 3.3 Medications Medications Current Medications Miscellaneous Information (* Miscellaneous Pharmacy Order) DC all Lovenox, Hepari... ONCE XX ; Start 01/31/17 at 13:30 Aspirin (Halfprin) 81 mg DAILY PO Last administered on 02/04/17 09:23; Admin Dose 81 MG; Start 01/31/17 at 16:00 Atorvastatin Calcium (Lipitor) 20 mg HS PO Last administered on 02/03/17 20:24 ; Admin Dose 20 MG; Start 01/31/17 at 21:00 Pantoprazole (Protonix Tab) 40 mg DAILY PO Last administered on 02/04/17 09:23 ; Admin Dose 40 MG; Start 01/31/17 at 16:00 Ondansetron HCl (Zofran Inj) 4 mg Q6H PRN IV NAUSEA AND/OR VOMITING; Start 01/31/17 at 14:30 Acetaminophen (Tylenol Tab) 650 mg Q6H PRN PO PAIN LEVEL 1-3 OR FEVER; Start 01/31/17 at 14:30 Docusate Sodium (Colace) 100 mg Q12H PRN PO CONSTIPATION; Start 01/31/17 at 14: 30 Guaifenesin (Mucinex) 600 mg BID PO Last administered on 02/04/17 09:23; Admin Dose 600 MG; Start 01/31/17 at 21:00 Hydralazine HCl (Apresoline) 10 mg BID PO Last administered on 02/04/17 09:24 ; Admin Dose 10 MG; Start 02/01/17 at 21:00 Patient Own Medication 1 ea HS PO ; Start 02/03/17 at 22:00; Stop 02/21/17 at 21:01 Carvedilol (Coreg) 6.25 mg BID PO ; Start 02/04/17 at 21:00 GARY CROSS MD Feb 04, 2017 13:22
--- NOTE | 2017-02-04 15:05 | CONS ---
Date/Time of Note Date/Time of Note DATE: 02/04/17 TIME: 15:00 Assessment/Plan Assessment/Plan Additional Assessment/Plan Severe Cardiomyopathy s/p BiV ICD Acute on chronic systolic heart failure clinically compensated PNA Metastatic breast ca Pleural effusions s/p thoracentesis Renal failure Respiratory insufficiency she is sob and discharge held Continue continuous Oxygen ABG stat Continue Coreg Continue Hydralazine Continue Lipitor Consultation Date/Type/Reason Admit Date/Time Jan 31, 2017 at 13:15 Eyes: no complaints ENT: No congestion, No pain, No sore throat Respiratory: cough, No shortness of breath, No sputum, No wheezing Cardiovascular: No chest pain, No edema, No lightheadedness, No palpitations Gastrointestinal: No constipation, No diarrhea, No nausea, No vomiting Genitourinary: no complaints Musculoskeletal: no complaints Skin: No erythema, No laceration, No rash Neurologic: no complaints Lymphatic: no complaints Psychological: no complaints Immunologic: no complaints Past Medical History Medical History: high cholesterol, hypertension, other (breast Ca, pelvic CA, cardiomyopathy) Past Surgical History Past Surgical Hx: other (left mastectomy ) Social History Alcohol Use: none Smoking Status: Never smoker Drug Use: none Exam/Review of Systems Vital Signs Vitals Vital Signs Date Time Temp Pulse Resp B/P Pulse Ox O2 Delivery O2 Flow Rate FiO2 02/04/17 12:24 Nasal Cannula 2.0 02/04/17 12:22 98 18 93 02/04/17 11:49 98.3 106/56 Intake and Output 02/03/17 02/03/17 02/04/17 15:00 23:00 07:00 Intake Total 500 ml 360 ml Balance 500 ml 360 ml Exam Constitutional: alert Psych: no complaints Head: atraumatic, normocephalic Neck: non-tender, supple Respiratory: diminished breath sounds Cardiovascular: regular rate and rhythm Gastrointestinal: nl liver, spleen, non-tender, soft Extremities: normal pulses Results Result Diagram: 02/04/17 0708 02/04/17 0708 Results 24 hrs Laboratory Tests Test 02/04/17 07:08 White Blood Count 2.4 L Red Blood Count 3.02 L Hemoglobin 9.7 L Hematocrit 30.1 L Mean Corpuscular Volume 99.7 Mean Corpuscular Hemoglobin 32.1 Mean Corpuscular Hemoglobin Concent 32.2 Red Cell Distribution Width 14.2 Platelet Count 189 Mean Platelet Volume 9.7 Neutrophils % 69.2 Lymphocytes % 12.9 L Monocytes % 10.0 Eosinophils % 4.6 Basophils % 2.5 H Nucleated Red Blood Cells % 0.0 Neutrophils # 1.7 Lymphocytes # 0.3 L Monocytes # 0.2 L Eosinophils # 0.1 Basophils # 0.1 Nucleated Red Blood Cells # 0.0 Sodium Level 139 Potassium Level 3.7 Chloride Level 106 Carbon Dioxide Level 28 Anion Gap 9 Blood Urea Nitrogen 10 Creatinine 1.13 H Glucose Level 111 Calcium Level 8.4 Phosphorus Level 3.1 Magnesium Level 1.8 Albumin 3.3 Medications Medications Current Medications Miscellaneous Information (* Miscellaneous Pharmacy Order) DC all Lovenox, Hepari... ONCE XX ; Start 01/31/17 at 13:30 Aspirin (Halfprin) 81 mg DAILY PO Last administered on 02/04/17 09:23; Admin Dose 81 MG; Start 01/31/17 at 16:00 Atorvastatin Calcium (Lipitor) 20 mg HS PO Last administered on 02/03/17 20:24 ; Admin Dose 20 MG; Start 01/31/17 at 21:00 Pantoprazole (Protonix Tab) 40 mg DAILY PO Last administered on 02/04/17 09:23 ; Admin Dose 40 MG; Start 01/31/17 at 16:00 Ondansetron HCl (Zofran Inj) 4 mg Q6H PRN IV NAUSEA AND/OR VOMITING; Start 01/31/17 at 14:30 Acetaminophen (Tylenol Tab) 650 mg Q6H PRN PO PAIN LEVEL 1-3 OR FEVER; Start 01/31/17 at 14:30 Docusate Sodium (Colace) 100 mg Q12H PRN PO CONSTIPATION; Start 01/31/17 at 14: 30 Guaifenesin (Mucinex) 600 mg BID PO Last administered on 02/04/17 09:23; Admin Dose 600 MG; Start 01/31/17 at 21:00 Hydralazine HCl (Apresoline) 10 mg BID PO Last administered on 02/04/17 09:24 ; Admin Dose 10 MG; Start 02/01/17 at 21:00 Patient Own Medication 1 ea HS PO ; Start 02/03/17 at 22:00; Stop 02/21/17 at 21:01 Carvedilol (Coreg) 6.25 mg BID PO ; Start 02/04/17 at 21:00 STEVEN HERNANDEZ M.D. Feb 04, 2017 15:05
--- NOTE | 2017-02-04 15:19 | CONS ---
Date/Time of Note Date/Time of Note DATE: 02/04/17 TIME: 15:17 Consult Date/Type/Reason Admit Date/Time Jan 31, 2017 at 13:15 Initial Consult Date 02/01/17 Type of Consultation: Pulm/CCM Ordering Provider: STEFANY BOYCE MD Subjective No events. A bit tachypneic Objective Vital Signs Date Time Temp Pulse Resp B/P Pulse Ox O2 Delivery O2 Flow Rate FiO2 02/04/17 12:24 Nasal Cannula 2.0 02/04/17 12:22 98 18 93 02/04/17 11:49 98.3 106/56 Intake and Output 02/03/17 02/03/17 02/04/17 15:00 23:00 07:00 Intake Total 500 ml 360 ml Balance 500 ml 360 ml Exam HEENT: Neck supple; no JVD; no LAD CVS: RRR, S1 and S2 CHEST: Decreased BS at bases ABD: Soft, NT, + BS EXT: No c/c/e Results/Medications Result Diagram: 02/04/17 0708 02/04/17 0708 Results 24 hrs Laboratory Tests Test 02/04/17 07:08 White Blood Count 2.4 L Red Blood Count 3.02 L Hemoglobin 9.7 L Hematocrit 30.1 L Mean Corpuscular Volume 99.7 Mean Corpuscular Hemoglobin 32.1 Mean Corpuscular Hemoglobin Concent 32.2 Red Cell Distribution Width 14.2 Platelet Count 189 Mean Platelet Volume 9.7 Neutrophils % 69.2 Lymphocytes % 12.9 L Monocytes % 10.0 Eosinophils % 4.6 Basophils % 2.5 H Nucleated Red Blood Cells % 0.0 Neutrophils # 1.7 Lymphocytes # 0.3 L Monocytes # 0.2 L Eosinophils # 0.1 Basophils # 0.1 Nucleated Red Blood Cells # 0.0 Sodium Level 139 Potassium Level 3.7 Chloride Level 106 Carbon Dioxide Level 28 Anion Gap 9 Blood Urea Nitrogen 10 Creatinine 1.13 H Glucose Level 111 Calcium Level 8.4 Phosphorus Level 3.1 Magnesium Level 1.8 Albumin 3.3 Medications Current Medications Miscellaneous Information (* Miscellaneous Pharmacy Order) DC all Lovenox, Hepari... ONCE XX ; Start 01/31/17 at 13:30 Aspirin (Halfprin) 81 mg DAILY PO Last administered on 02/04/17t 09:23; Admin Dose 81 MG; Start 01/31/17 at 16:00 Atorvastatin Calcium (Lipitor) 20 mg HS PO Last administered on 02/03/17 20:24 ; Admin Dose 20 MG; Start 01/31/17 at 21:00 Pantoprazole (Protonix Tab) 40 mg DAILY PO Last administered on 02/04/17 09:23 ; Admin Dose 40 MG; Start 01/31/17 at 16:00 Ondansetron HCl (Zofran Inj) 4 mg Q6H PRN IV NAUSEA AND/OR VOMITING; Start 01/31/17 at 14:30 Acetaminophen (Tylenol Tab) 650 mg Q6H PRN PO PAIN LEVEL 1-3 OR FEVER; Start 01/31/17 at 14:30 Docusate Sodium (Colace) 100 mg Q12H PRN PO CONSTIPATION; Start 01/31/17 at 14: 30 Guaifenesin (Mucinex) 600 mg BID PO Last administered on 02/04/17 09:23; Admin Dose 600 MG; Start 01/31/17 at 21:00 Hydralazine HCl (Apresoline) 10 mg BID PO Last administered on 02/04/17 09:24 ; Admin Dose 10 MG; Start 02/01/17 at 21:00 Patient Own Medication 1 ea HS PO ; Start 02/03/17 at 22:00; Stop 02/21/17 at 21:01 Carvedilol (Coreg) 6.25 mg BID PO ; Start 02/04/17 at 21:00 Assessment/Plan Additional Assessment/Plan IMP: 1. Large left pleural effusion--lymphocytic predominant exudate--> likely malignant RECS: 1. Repeat CXR in 2. If there is evidence of rapid reaccumulation would suggest pleurX LETICIA ABARCA MD Feb 04, 2017 15:19
[2017-02-04 17:02] LABS: AADO2 Arterial 116.6 mmHg (7.0-24.0); Allen Test ACCEPTAB; Arterial Base Excess 0.9 mmol/L (-3.0-3); Arterial COHb 0.3 % (0.0-3.0); Arterial Fraction of Oxyhgb 94.1 % (93.0-99.0); Arterial HCO3 25.2 mmol/L (22.0-26.0); Arterial MetHb 0.1 % (0.0-1.5); Arterial Total Hemglobin 10.8 g/dl (12.0-18.0); MODE NASAL CANNULA
[2017-02-04] MEDS: ATORVASTATIN 20 MG TAB PO SCH (21:10)
[2017-02-04] MEDS: PALBOCICLIB 100 MG PO SCH (21:11)
[2017-02-05] VITALS (13 sets, daily range): BP systolic 93–112; BP diastolic 55–65; PULSE 87–110; RESP 16–18
[2017-02-05] MEDS: GUAIFENESIN LA 600 MG TABSR PO SCH ×2 (08:56→21:58)
[2017-02-05] MEDS: ASPIRIN (EC) 81 MG TAB PO SCH (08:56)
[2017-02-05] MEDS: ALBUTEROL 0.083% (NEB) 2.5 MG/3 ML AMP HHN SCH ×4 (08:56→20:16)
[2017-02-05] MEDS: PANTOPRAZOLE (EC) 40 MG TAB PO SCH (08:56)
[2017-02-05 09:24] LABS: ABNORMAL IP MESSAGE 1; HEMATOCRIT 30.1 % (37.0-47.0); HEMOGLOBIN 9.9 g/dl (12.0-16.0); MEAN CORPUSCULAR HGB CONC 32.9 g/dl (32.0-37.0); MEAN CORPUSCULAR VOLUME 100.3 fl (82.0-101.0); MEAN PLATELET VOLUME 10.9 fl (7.4-10.4); PLATELET COUNT 191 10^3/UL (140-415); RED CELL DISTRIBUTION WIDTH 13.7 % (11.5-14.5); WHITE BLOOD COUNT 2.1 10^3/ul (4.8-10.8)
[2017-02-05 09:29] LABS: POSITIVE DIFF @See below
[2017-02-05 09:45] LABS: ALBUMIN 3.4 g/dl (3.3-4.9); CALCIUM 8.5 mg/dl (8.4-10.2); CREATININE 1.02 mg/dl (0.44-1.00); MAGNESIUM 1.8 mg/dl (1.7-2.5); PHOSPHORUS 3.5 mg/dl (2.5-4.9); POTASSIUM 3.7 mmol/L (3.5-5.1)
[2017-02-05 10:20] LABS: ANISOCYTOSIS 1+ (0-0); BASOPHILS % (M) 3 % (0-2); EOSINOPHILS % (M) 5 % (0-7); HYPOCHROMASIA 1+ (0-0); METAMYELOCYTES %M 1 % (0-0); MONOCYTES % (M) 5 % (0-11); OVALOCYTES 1+ (0-0); PLATELET ESTIMATE NORMAL; POIKILOCYTOSIS 1+ (0-0)
--- NOTE | 2017-02-05 15:16 | CONS ---
Date/Time of Note Date/Time of Note DATE: 02/05/17 TIME: 15:09 Assessment/Plan Assessment/Plan Additional Assessment/Plan Severe Cardiomyopathy s/p BiV ICD Acute on chronic systolic heart failure clinically compensated PNA Metastatic breast ca Pleural effusions s/p thoracentesis Renal failure Respiratory insufficiency CXR shows recurrence of left pleural effusion Continue continuous Oxygen Started on lasix 40mg IV BID Continue Coreg Continue Hydralazine Continue Lipitor Consultation Date/Type/Reason Admit Date/Time Jan 31, 2017 at 13:15 Initial Consult Date 02/01/17 Type of Consultation: Pulm/CCM Referring Provider: STEFANY BOYCE MD Exam/Review of Systems Vital Signs Vitals Vital Signs Date Time Temp Pulse Resp B/P Pulse Ox O2 Delivery O2 Flow Rate FiO2 02/05/17 13:19 5.0 02/05/17 13:15 93 26 91 Nasal Cannula 02/05/17 12:07 98.5 93/58 Intake and Output 02/04/17 02/04/17 02/05/17 15:00 23:00 07:00 Intake Total 400 ml 480 ml Balance 400 ml 480 ml Exam Constitutional: alert Head: atraumatic, normocephalic Neck: non-tender, supple Respiratory: diminished breath sounds Cardiovascular: regular rate and rhythm Gastrointestinal: nl liver, spleen, non-tender, soft Extremities: normal pulses Results Result Diagram: 02/05/17 0740 02/05/17 0740 Results 24 hrs Laboratory Tests Test 02/05/17 07:40 White Blood Count 2.1 L Red Blood Count 3.00 L Hemoglobin 9.9 L Hematocrit 30.1 L Mean Corpuscular Volume 100.3 Mean Corpuscular Hemoglobin 33.0 Mean Corpuscular Hemoglobin Concent 32.9 Red Cell Distribution Width 13.7 Platelet Count 191 Mean Platelet Volume 10.9 H Neutrophils % Segmented Neutrophils % (Manual) 62 Band Neutrophils % (Manual) 7 H Lymphocytes % Lymphocytes % (Manual) 16 Monocytes % Monocytes % (Manual) 5 Eosinophils % Eosinophils % (Manual) 5 Basophils % Basophils % (Manual) 3 H Metamyelocytes % (manual) 1 H Nucleated Red Blood Cells % 0.0 Neutrophils # Neutrophils # (Manual) 1.3 L Band Neutrophils # 0.1 Absolute Lymphocytes (Manual) 0.3 L Lymphocytes # Monocytes # Absolute Monocytes (Manual) 0.1 L Eosinophils # Basophils # Basophils # (Manual) 0.0 Metamyelocytes # 0.0 Nucleated Red Blood Cells # Platelet Estimate NORMAL Hypochromasia 1+ Poikilocytosis 1+ Anisocytosis 1+ Macrocytosis 1+ Ovalocytes 1+ Sodium Level 138 Potassium Level 3.7 Chloride Level 105 Carbon Dioxide Level 26 Anion Gap 11 Blood Urea Nitrogen 13 Creatinine 1.02 H Glucose Level 106 Calcium Level 8.5 Phosphorus Level 3.5 Magnesium Level 1.8 Albumin 3.4 Medications Medications Current Medications Miscellaneous Information (* Miscellaneous Pharmacy Order) DC all Lovenox, Hepari... ONCE XX ; Start 01/31/17 at 13:30 Aspirin (Halfprin) 81 mg DAILY PO Last administered on 02/05/17 08:56; Admin Dose 81 MG; Start 01/31/17 at 16:00 Atorvastatin Calcium (Lipitor) 20 mg HS PO Last administered on 02/04/17 21:10 ; Admin Dose 20 MG; Start 01/31/17 at 21:00 Pantoprazole (Protonix Tab) 40 mg DAILY PO Last administered on 02/05/17 08:56 ; Admin Dose 40 MG; Start 01/31/17 at 16:00 Ondansetron HCl (Zofran Inj) 4 mg Q6H PRN IV NAUSEA AND/OR VOMITING; Start 01/31/17 at 14:30 Acetaminophen (Tylenol Tab) 650 mg Q6H PRN PO PAIN LEVEL 1-3 OR FEVER; Start 01/31/17 at 14:30 Docusate Sodium (Colace) 100 mg Q12H PRN PO CONSTIPATION; Start 01/31/17 at 14: 30 Guaifenesin (Mucinex) 600 mg BID PO Last administered on 02/05/17 08:56; Admin Dose 600 MG; Start 01/31/17 at 21:00 Hydralazine HCl (Apresoline) 10 mg BID PO Last administered on 02/05/17 08:57 ; Admin Dose 10 MG; Start 02/01/17 at 21:00 Patient Own Medication 1 ea HS PO Last administered on 02/04/17 21:11; Admin Dose 1 EA; Start 02/03/17 at 22:00; Stop 02/21/17 at 21:01 Carvedilol (Coreg) 6.25 mg BID PO Last administered on 02/05/17 08:57; Admin Dose 6.25 MG; Start 02/04/17 at 21:00 STEVEN HERNANDEZ M.D. Feb 05, 2017 15:16
--- NOTE | 2017-02-05 15:18 | CONS ---
Date/Time of Note Date/Time of Note DATE: 02/05/17 TIME: 15:17 Consult Date/Type/Reason Admit Date/Time Jan 31, 2017 at 13:15 Initial Consult Date 02/01/17 Type of Consultation: Pulm/CCM Ordering Provider: STEFANY BOYCE MD Subjective A bit more dyspneic today Objective Vital Signs Date Time Temp Pulse Resp B/P Pulse Ox O2 Delivery O2 Flow Rate FiO2 02/05/17 13:19 5.0 02/05/17 13:15 93 26 91 Nasal Cannula 02/05/17 12:07 98.5 93/58 Intake and Output 02/04/17 02/04/17 02/05/17 15:00 23:00 07:00 Intake Total 400 ml 480 ml Balance 400 ml 480 ml Exam HEENT: Neck supple; no JVD; no LAD CVS: RRR, S1 and S2 CHEST: Decreased BS left > right base ABD: Soft, NT, + BS EXT: No c/c/e Results/Medications Result Diagram: 02/05/17 0740 02/05/17 0740 Results 24 hrs Laboratory Tests Test 02/05/17 07:40 White Blood Count 2.1 L Red Blood Count 3.00 L Hemoglobin 9.9 L Hematocrit 30.1 L Mean Corpuscular Volume 100.3 Mean Corpuscular Hemoglobin 33.0 Mean Corpuscular Hemoglobin Concent 32.9 Red Cell Distribution Width 13.7 Platelet Count 191 Mean Platelet Volume 10.9 H Neutrophils % Segmented Neutrophils % (Manual) 62 Band Neutrophils % (Manual) 7 H Lymphocytes % Lymphocytes % (Manual) 16 Monocytes % Monocytes % (Manual) 5 Eosinophils % Eosinophils % (Manual) 5 Basophils % Basophils % (Manual) 3 H Metamyelocytes % (manual) 1 H Nucleated Red Blood Cells % 0.0 Neutrophils # Neutrophils # (Manual) 1.3 L Band Neutrophils # 0.1 Absolute Lymphocytes (Manual) 0.3 L Lymphocytes # Monocytes # Absolute Monocytes (Manual) 0.1 L Eosinophils # Basophils # Basophils # (Manual) 0.0 Metamyelocytes # 0.0 Nucleated Red Blood Cells # Platelet Estimate NORMAL Hypochromasia 1+ Poikilocytosis 1+ Anisocytosis 1+ Macrocytosis 1+ Ovalocytes 1+ Sodium Level 138 Potassium Level 3.7 Chloride Level 105 Carbon Dioxide Level 26 Anion Gap 11 Blood Urea Nitrogen 13 Creatinine 1.02 H Glucose Level 106 Calcium Level 8.5 Phosphorus Level 3.5 Magnesium Level 1.8 Albumin 3.4 Medications Current Medications Miscellaneous Information (* Miscellaneous Pharmacy Order) DC all Lovenox, Hepari... ONCE XX ; Start 01/31/17 at 13:30 Aspirin (Halfprin) 81 mg DAILY PO Last administered on 02/05/17 08:56; Admin Dose 81 MG; Start 01/31/17 at 16:00 Atorvastatin Calcium (Lipitor) 20 mg HS PO Last administered on 02/04/17 21:10 ; Admin Dose 20 MG; Start 01/31/17 at 21:00 Pantoprazole (Protonix Tab) 40 mg DAILY PO Last administered on 02/05/17 08:56 ; Admin Dose 40 MG; Start 01/31/17 at 16:00 Ondansetron HCl (Zofran Inj) 4 mg Q6H PRN IV NAUSEA AND/OR VOMITING; Start 01/31/17 at 14:30 Acetaminophen (Tylenol Tab) 650 mg Q6H PRN PO PAIN LEVEL 1-3 OR FEVER; Start 01/31/17 at 14:30 Docusate Sodium (Colace) 100 mg Q12H PRN PO CONSTIPATION; Start 01/31/17 at 14: 30 Guaifenesin (Mucinex) 600 mg BID PO Last administered on 02/05/17 08:56; Admin Dose 600 MG; Start 01/31/17 at 21:00 Hydralazine HCl (Apresoline) 10 mg BID PO Last administered on 02/05/17 08:57 ; Admin Dose 10 MG; Start 02/01/17 at 21:00 Patient Own Medication 1 ea HS PO Last administered on 02/04/17 21:11; Admin Dose 1 EA; Start 02/03/17 at 22:00; Stop 02/21/17 at 21:01 Carvedilol (Coreg) 6.25 mg BID PO Last administered on 02/05/17 08:57; Admin Dose 6.25 MG; Start 02/04/17 at 21:00 Assessment/Plan Additional Assessment/Plan IMP: 1. Large left pleural effusion--lymphocytic predominant exudate--> likely malignant RECS: 1. Await pleural fluid cytology 2. If +, would consider pleurX LETICIA ABARCA MD Feb 05, 2017 15:18
[2017-02-05] MEDS ORDERED: FUROSEMIDE 40 MG INJ ONE (16:20)
[2017-02-05] MEDS: FUROSEMIDE 40 MG INJ IV SCH (16:39)
--- NOTE | 2017-02-05 16:41 | RADRPT ---
PROCEDURE: XR Chest. CLINICAL INDICATION: 81-year-old female with history of pleural effusions. Status post thoracente sis under ultrasound guidance 02/01/2017. TECHNIQUE: Single frontal view of the chest was obtained. COMPARISON: Chest x-ray 02/01/2017. FINDINGS: A AICD device is identified over the left chest wall with electrode leads projecting at the level of the right atrium right ventricle. No pneumothorax is noted. There is bilateral apical pleural scarr ing. There are clips in the right axilla. There are old right-sided rib fractures. There are osteop hytes in the thoracic spine with a levoscoliosis of the lower thoracic spine. The heart is enlarged . The cardiomediastinal silhouette and hilar structures are normal. The pulmonary vasculature is equ ilibrated. There are vascular calcifications and ectasia of the thoracic aorta. There are bilateral perihilar interstitial infiltrates extending toward the periphery of the lungs with some consolidat cristofer infiltrate or atelectasis in the bases of the lungs. There are bilateral pleural effusions. IMPRESSION: 1. Cardiomegaly with congestive heart failure, interstitial pulmonary edema and bilateral pleural ef fusions. These findings have worsened slightly as compared to 02/01/2017. 2. Status post right axillary node dissection with old right-sided rib fractures. 3. AICD device/pacemaker over the left chest wall. 4. Bilateral apical pleural scarring with no evidence of a pneumothorax. RPTAT:AAJJ Physician Lary Date Time Electronically viewed and signed by Physician Lary on 02/05/2017 16:40 MARY/
--- NOTE | 2017-02-05 17:00 | PN ---
Date/Time of Note Date/Time of Note DATE: 02/05/17 TIME: 16:56 Assessment/Plan VTE Prophylaxis VTE Prophylaxis Intervention: SCD's Lines/Catheters IV Catheter Type (from Nrs): Saline Lock Urinary Cath still in place: No Assessment/Plan Assessment/Plan 1. Left sided pleural effusion with consolidation s/p thoracentesis - Patient more labored this am - Repeat CXR showed pulmonary congestion and b/l effusion - Continue O2 as needed and wean to maintain saturations >90% - Fluid studies show exudative type fluid and no grow to date. AFB negative. Based on cytology findings, may need pleurex cath per Pulm - Started on Lasix 40mg IV BID 2. Left sided pneumonia- resolved - No signs of infection on CXR and WBC have been trending up and remains afebrile - Nebs PRN for SOB 3. Leukopenia secondary to infection vs chemotherapy - will continue to monitor. trending upward - Per son patient follows with a Dr. Tay 4. Cardiomyopathy with last documented ejection fraction of 45% while bi-V paced - increased Coreg due to persistent tachycardia 5. H/o Bivent ICD - in need of battery replacement - once stable will replace. Plans for Monday as outpatient. - Cardiology input appreciated 6. H/o Breast CA with mets to pelvis - On PO chemo which patient brought her own medication supply with her 7. Anemia of chronic disease - monitor H/H 8. KAYLEE - Will renally dose medications and monitor Cr/BUN - improving 9. Disposition - continue monitoring on telemetry given worsening respiratory status Subjective 24 Hr Interval Summary Free Text/Dictation Patient states shortness of breath is more present compared to yesterday with need for supplemental O2. No acute overnight events. Exam/Review of Systems Vital Signs Vitals Vital Signs Date Time Temp Pulse Resp B/P Pulse Ox O2 Delivery O2 Flow Rate FiO2 02/05/17 16:38 100/60 02/05/17 16:05 92 02/05/17 15:48 98.9 16 99 02/05/17 15:31 Nasal Cannula 5.0 Intake and Output 02/04/17 02/04/17 02/05/17 15:00 23:00 07:00 Intake Total 400 ml 480 ml Balance 400 ml 480 ml Exam Constitutional: alert, oriented, well developed, Mild respiratory distress Head: atraumatic, normocephalic Neck: non-tender, supple Respiratory: diminished breath sounds at bases bilaterally, no wheezing or crackles Cardiovascular: regular rate and rhythm, No edema, No murmurs/extra sounds Gastrointestinal: bowel sounds, non-tender, soft, No distended, No rebound or guarding Musculoskeletal: nl extremities to inspection Extremities: normal pulses, No clubbing, No cyanosis, No edema Skin: nl turgor Results Result Diagram: 02/05/17 0740 02/05/17 0740 Results 24 hrs Laboratory Tests Test 02/05/17 07:40 White Blood Count 2.1 L Red Blood Count 3.00 L Hemoglobin 9.9 L Hematocrit 30.1 L Mean Corpuscular Volume 100.3 Mean Corpuscular Hemoglobin 33.0 Mean Corpuscular Hemoglobin Concent 32.9 Red Cell Distribution Width 13.7 Platelet Count 191 Mean Platelet Volume 10.9 H Neutrophils % Segmented Neutrophils % (Manual) 62 Band Neutrophils % (Manual) 7 H Lymphocytes % Lymphocytes % (Manual) 16 Monocytes % Monocytes % (Manual) 5 Eosinophils % Eosinophils % (Manual) 5 Basophils % Basophils % (Manual) 3 H Metamyelocytes % (manual) 1 H Nucleated Red Blood Cells % 0.0 Neutrophils # Neutrophils # (Manual) 1.3 L Band Neutrophils # 0.1 Absolute Lymphocytes (Manual) 0.3 L Lymphocytes # Monocytes # Absolute Monocytes (Manual) 0.1 L Eosinophils # Basophils # Basophils # (Manual) 0.0 Metamyelocytes # 0.0 Nucleated Red Blood Cells # Platelet Estimate NORMAL Hypochromasia 1+ Poikilocytosis 1+ Anisocytosis 1+ Macrocytosis 1+ Ovalocytes 1+ Sodium Level 138 Potassium Level 3.7 Chloride Level 105 Carbon Dioxide Level 26 Anion Gap 11 Blood Urea Nitrogen 13 Creatinine 1.02 H Glucose Level 106 Calcium Level 8.5 Phosphorus Level 3.5 Magnesium Level 1.8 Albumin 3.4 Medications Medications Current Medications Miscellaneous Information (* Miscellaneous Pharmacy Order) DC all Lovenox, Hepari... ONCE XX ; Start 01/31/17 at 13:30 Aspirin (Halfprin) 81 mg DAILY PO Last administered on 02/05/17 08:56; Admin Dose 81 MG; Start 01/31/17 at 16:00 Atorvastatin Calcium (Lipitor) 20 mg HS PO Last administered on 02/04/17 21:10 ; Admin Dose 20 MG; Start 01/31/17 at 21:00 Pantoprazole (Protonix Tab) 40 mg DAILY PO Last administered on 02/05/17 08:56 ; Admin Dose 40 MG; Start 01/31/17 at 16:00 Ondansetron HCl (Zofran Inj) 4 mg Q6H PRN IV NAUSEA AND/OR VOMITING; Start 01/31/17 at 14:30 Acetaminophen (Tylenol Tab) 650 mg Q6H PRN PO PAIN LEVEL 1-3 OR FEVER; Start 01/31/17 at 14:30 Docusate Sodium (Colace) 100 mg Q12H PRN PO CONSTIPATION; Start 01/31/17 at 14: 30 Guaifenesin (Mucinex) 600 mg BID PO Last administered on 02/05/17 08:56; Admin Dose 600 MG; Start 01/31/17 at 21:00 Hydralazine HCl (Apresoline) 10 mg BID PO Last administered on 02/05/17 08:57 ; Admin Dose 10 MG; Start 02/01/17 at 21:00 Patient Own Medication 1 ea HS PO Last administered on 02/04/17 21:11; Admin Dose 1 EA; Start 02/03/17 at 22:00; Stop 02/21/17 at 21:01 Carvedilol (Coreg) 6.25 mg BID PO Last administered on 02/05/17 08:57; Admin Dose 6.25 MG; Start 02/04/17 at 21:00 GARY CROSS MD Feb 05, 2017 17:00
[2017-02-05] MEDS: PALBOCICLIB 100 MG PO SCH (21:57)
[2017-02-05] MEDS: ATORVASTATIN 20 MG TAB PO SCH (21:58)
[2017-02-06] VITALS (13 sets, daily range): BP systolic 95–128; BP diastolic 55–64; PULSE 85–100; RESP 18–20
[2017-02-06] MEDS: FUROSEMIDE 40 MG INJ IV SCH ×2 (04:58→17:38)
[2017-02-06] MEDS: ALBUTEROL 0.083% (NEB) 2.5 MG/3 ML AMP HHN SCH ×4 (07:48→20:31)
[2017-02-06 08:37] LABS: ABNORMAL IP MESSAGE 1; HEMATOCRIT 33.8 % (37.0-47.0); HEMOGLOBIN 11.3 g/dl (12.0-16.0); MEAN CORPUSCULAR HEMOGLOBIN 32.6 pg (29.0-33.0); MEAN CORPUSCULAR HGB CONC 33.4 g/dl (32.0-37.0); MEAN CORPUSCULAR VOLUME 97.4 fl (82.0-101.0); MEAN PLATELET VOLUME 11.9 fl (7.4-10.4); RED BLOOD COUNT 3.47 10^6/ul (4.20-5.40); RED CELL DISTRIBUTION WIDTH 13.8 % (11.5-14.5); WHITE BLOOD COUNT 2.2 10^3/ul (4.8-10.8)
[2017-02-06 08:59] LABS: PLATELET COUNT 140 10^3/UL (140-415); POSITIVE DIFF @See below
[2017-02-06 09:02] LABS: ALBUMIN 3.7 g/dl (3.3-4.9); CALCIUM 8.7 mg/dl (8.4-10.2); CREATININE 1.16 mg/dl (0.44-1.00); MAGNESIUM 1.7 mg/dl (1.7-2.5); PHOSPHORUS 4.3 mg/dl (2.5-4.9); POTASSIUM 4.1 mmol/L (3.5-5.1)
[2017-02-06] MEDS: GUAIFENESIN LA 600 MG TABSR PO SCH ×2 (09:22→21:57)
[2017-02-06] MEDS: PANTOPRAZOLE (EC) 40 MG TAB PO SCH (09:23)
[2017-02-06] MEDS: ASPIRIN (EC) 81 MG TAB PO SCH (09:24)
[2017-02-06 10:57] LABS: BASOPHILS % (M) 5 % (0-2); EOSINOPHILS % (M) 4 % (0-7); METAMYELOCYTES %M 1 % (0-0); MONOCYTES % (M) 6 % (0-11); MYELOCYTES % (M) 1 % (0-0); POIKILOCYTOSIS 2+ (0-0); POLYCHROMASIA 2+ (0-0); REACTIVE LYMPHOCYTES% (M) 9 % (0-0)
--- NOTE | 2017-02-06 12:34 | CONS ---
Date/Time of Note Date/Time of Note DATE: 02/06/17 TIME: 12:32 Assessment/Plan Assessment/Plan Additional Assessment/Plan Assessment and recommendations; 1. Patient admitted with shortness of breath discovered to have very large left pleural effusion status post thoracentesis on the fourth of this month, 1.2 L of fluid was removed with marked improvement in shortness of breath. 2. Metastatic breast cancer. 3. History of cardiac arrhythmia. Consider discharge. Obtain follow-up chest x-ray to ensure that there is no recurrence of pleural effusion. In case patient has recurrent effusion she will need to have a Pleurx catheter placed. Prognosis remains poor. Consultation Date/Type/Reason Admit Date/Time Jan 31, 2017 at 13:15 Initial Consult Date 02/01/17 Type of Consultation: Pulm/CCM Referring Provider: STEFANY BOYCE MD 24 HR Interval Summary Free Text/Dictation Patient's condition is stable. Remains awake and alert. General exam; elderly female, awake and alert. Currently in no distress. Exam/Review of Systems Vital Signs Vitals Vital Signs Date Time Temp Pulse Resp B/P Pulse Ox O2 Delivery O2 Flow Rate FiO2 02/06/17 11:50 Nasal Cannula 5.0 02/06/17 11:24 98.2 92 18 106/60 91 Intake and Output 02/05/17 02/05/17 02/06/17 15:00 23:00 07:00 Intake Total 600 ml 300 ml Balance 600 ml 300 ml Exam HEENT exam; supple neck, no JVD. No lymphadenopathy. Midline trachea. No thyromegaly. Patient has multiple carious teeth. Chest exam; right mastectomy. Diminished breath on lung bases bilaterally. Upper lobes are clear to auscultation. S1-S2 audible, no murmurs. Regular rhythm. Abdomen exam; soft, nontender. No organomegaly. Bowel sounds audible. Extremity exam; no peripheral edema. [employer] exam; no focal deficit. Results Result Diagram: 02/06/17 0745 02/06/17 0745 Results 24 hrs Laboratory Tests Test 02/06/17 07:45 White Blood Count 2.2 L Red Blood Count 3.47 L Hemoglobin 11.3 L Hematocrit 33.8 L Mean Corpuscular Volume 97.4 Mean Corpuscular Hemoglobin 32.6 Mean Corpuscular Hemoglobin Concent 33.4 Red Cell Distribution Width 13.8 Platelet Count 140 # Mean Platelet Volume 11.9 H Neutrophils % Segmented Neutrophils % (Manual) 41 Band Neutrophils % (Manual) 1 Lymphocytes % Lymphocytes % (Manual) 32 Reactive Lymphocytes % (Manual) 9 H Monocytes % Monocytes % (Manual) 6 Eosinophils % Eosinophils % (Manual) 4 Basophils % Basophils % (Manual) 5 H Metamyelocytes % (manual) 1 H Myelocytes % (Manual) 1 H Nucleated Red Blood Cells % 0.0 Neutrophils # Neutrophils # (Manual) 0.9 L Band Neutrophils # 0.0 Absolute Lymphocytes (Manual) 0.7 L Lymphocytes # Reactive Lymphocytes # 0.1 H Monocytes # Absolute Monocytes (Manual) 0.1 L Eosinophils # Basophils # Basophils # (Manual) 0.1 H Metamyelocytes # 0.0 Myelocytes # 0.0 Nucleated Red Blood Cells # Polychromasia 2+ Poikilocytosis 2+ Sodium Level 138 Potassium Level 4.1 Chloride Level 100 Carbon Dioxide Level 29 Anion Gap 13 Blood Urea Nitrogen 18 Creatinine 1.16 H Glucose Level 115 Calcium Level 8.7 Phosphorus Level 4.3 Magnesium Level 1.7 Albumin 3.7 Medications Medications Current Medications Miscellaneous Information (* Miscellaneous Pharmacy Order) DC all Lovenox, Hepari... ONCE XX ; Start 01/31/17 at 13:30 Aspirin (Halfprin) 81 mg DAILY PO Last administered on 02/06/17 09:24; Admin Dose 81 MG; Start 01/31/17 at 16:00 Atorvastatin Calcium (Lipitor) 20 mg HS PO Last administered on 02/05/17 21:58 ; Admin Dose 20 MG; Start 01/31/17 at 21:00 Pantoprazole (Protonix Tab) 40 mg DAILY PO Last administered on 02/06/17 09:23 ; Admin Dose 40 MG; Start 01/31/17 at 16:00 Ondansetron HCl (Zofran Inj) 4 mg Q6H PRN IV NAUSEA AND/OR VOMITING; Start 01/31/17 at 14:30 Acetaminophen (Tylenol Tab) 650 mg Q6H PRN PO PAIN LEVEL 1-3 OR FEVER; Start 01/31/17 at 14:30 Docusate Sodium (Colace) 100 mg Q12H PRN PO CONSTIPATION; Start 01/31/17 at 14: 30 Guaifenesin (Mucinex) 600 mg BID PO Last administered on 02/06/17 09:22; Admin Dose 600 MG; Start 01/31/17 at 21:00 Hydralazine HCl (Apresoline) 10 mg BID PO Last administered on 02/06/17 09:24 ; Admin Dose 10 MG; Start 02/01/17 at 21:00 Carvedilol (Coreg) 6.25 mg BID PO Last administered on 02/06/17 09:22; Admin Dose 6.25 MG; Start 02/04/17 at 21:00 Patient Own Medication 1 ea HS PO ; Start 02/06/17 at 21:00; Stop 02/22/17 at 21:01 DAGOBERTO CAO Feb 06, 2017 12:34
--- NOTE | 2017-02-06 19:48 | PN ---
Date/Time of Note Date/Time of Note DATE: 02/06/17 TIME: 19:47 Assessment/Plan VTE Prophylaxis VTE Prophylaxis Intervention: SCD's Lines/Catheters IV [facility]ter Type (from [facility]): Saline Lock Urinary Cath still in place: No Assessment/Plan Chief Complaint/Hosp Course Assessment/Plan 1. Left sided pleural effusion with consolidation s/p thoracentesis - patient resting comfortably - Repeat CXR showed pulmonary congestion and b/l effusion - Continue O2 as needed and wean to maintain saturations >90% - Fluid studies show exudative type fluid and no grow to date. AFB negative. Based on cytology findings, may need pleurex cath per Pulm - on lasix 2. Left sided pneumonia- resolved - No signs of infection on CXR and WBC have been trending up and remains afebrile - Nebs PRN for SOB 3. Leukopenia secondary to infection vs chemotherapy - will continue to monitor. trending upward - Per son patient follows with a Dr. Tay 4. Cardiomyopathy with last documented ejection fraction of 45% while bi-V paced - increased Coreg due to persistent tachycardia 5. H/o Bivent ICD - in need of battery replacement - once stable will replace. Plans for Monday as outpatient. - Cardiology input appreciated 6. H/o Breast CA with mets to pelvis - On PO chemo which patient brought her own medication supply with her 7. Anemia of chronic disease - monitor H/H 8. KAYLEE - Will renally dose medications and monitor Cr/BUN - improving 9. Disposition - continue lasix, will to have coordinate DC and pacer batter replacement with cardiology Problems: Subjective 24 Hr Interval Summary Free Text/Dictation no acute change, no sob Exam/Review of Systems Vital Signs Vitals Vital Signs Date Time Temp Pulse Resp B/P Pulse Ox O2 Delivery O2 Flow Rate FiO2 02/06/17 19:44 98.1 100 18 123/64 94 02/06/17 16:33 5.0 02/06/17 16:33 Nasal Cannula Intake and Output 02/05/17 02/05/17 02/06/17 15:00 23:00 07:00 Intake Total 600 ml 300 ml Balance 600 ml 300 ml Exam Constitutional: alert, oriented, well developed, Mild respiratory distress Head: atraumatic, normocephalic Neck: non-tender, supple Respiratory: diminished breath sounds at bases bilaterally, no wheezing or crackles Cardiovascular: regular rate and rhythm, No edema, No murmurs/extra sounds Gastrointestinal: bowel sounds, non-tender, soft, No distended, No rebound or guarding Musculoskeletal: nl extremities to inspection Extremities: normal pulses, No clubbing, No cyanosis, No edema Skin: nl turgor Results Result Diagram: 02/06/17 0745 02/06/17 0745 Results 24 hrs Laboratory Tests Test 02/06/17 07:45 White Blood Count 2.2 L Red Blood Count 3.47 L Hemoglobin 11.3 L Hematocrit 33.8 L Mean Corpuscular Volume 97.4 Mean Corpuscular Hemoglobin 32.6 Mean Corpuscular Hemoglobin Concent 33.4 Red Cell Distribution Width 13.8 Platelet Count 140 # Mean Platelet Volume 11.9 H Neutrophils % Segmented Neutrophils % (Manual) 41 Band Neutrophils % (Manual) 1 Lymphocytes % Lymphocytes % (Manual) 32 Reactive Lymphocytes % (Manual) 9 H Monocytes % Monocytes % (Manual) 6 Eosinophils % Eosinophils % (Manual) 4 Basophils % Basophils % (Manual) 5 H Metamyelocytes % (manual) 1 H Myelocytes % (Manual) 1 H Nucleated Red Blood Cells % 0.0 Neutrophils # Neutrophils # (Manual) 0.9 L Band Neutrophils # 0.0 Absolute Lymphocytes (Manual) 0.7 L Lymphocytes # Reactive Lymphocytes # 0.1 H Monocytes # Absolute Monocytes (Manual) 0.1 L Eosinophils # Basophils # Basophils # (Manual) 0.1 H Metamyelocytes # 0.0 Myelocytes # 0.0 Nucleated Red Blood Cells # Polychromasia 2+ Poikilocytosis 2+ Sodium Level 138 Potassium Level 4.1 Chloride Level 100 Carbon Dioxide Level 29 Anion Gap 13 Blood Urea Nitrogen 18 Creatinine 1.16 H Glucose Level 115 Calcium Level 8.7 Phosphorus Level 4.3 Magnesium Level 1.7 Albumin 3.7 Medications Medications Current Medications Miscellaneous Information (* Miscellaneous Pharmacy Order) DC all Lovenox, Hepari... ONCE XX ; Start 01/31/17 at 13:30 Aspirin (Halfprin) 81 mg DAILY PO Last administered on 02/06/17 09:24; Admin Dose 81 MG; Start 01/31/17 at 16:00 Atorvastatin Calcium (Lipitor) 20 mg HS PO Last administered on 02/05/17 21:58 ; Admin Dose 20 MG; Start 01/31/17 at 21:00 Pantoprazole (Protonix Tab) 40 mg DAILY PO Last administered on 02/06/17 09:23 ; Admin Dose 40 MG; Start 01/31/17 at 16:00 Ondansetron HCl (Zofran Inj) 4 mg Q6H PRN IV NAUSEA AND/OR VOMITING; Start 01/31/17 at 14:30 Acetaminophen (Tylenol Tab) 650 mg Q6H PRN PO PAIN LEVEL 1-3 OR FEVER; Start 01/31/17 at 14:30 Docusate Sodium (Colace) 100 mg Q12H PRN PO CONSTIPATION; Start 01/31/17 at 14: 30 Guaifenesin (Mucinex) 600 mg BID PO Last administered on 02/06/17 09:22; Admin Dose 600 MG; Start 01/31/17 at 21:00 Carvedilol (Coreg) 6.25 mg BID PO Last administered on 02/06/17 09:22; Admin Dose 6.25 MG; Start 02/04/17 at 21:00 Patient Own Medication 1 ea HS PO ; Start 02/06/17 at 21:00; Stop 02/22/17 at 21:01 DIMA COVARRUBIAS Feb 06, 2017 19:48
--- NOTE | 2017-02-06 20:27 | CONS ---
Date/Time of Note Date/Time of Note DATE: 02/06/17 TIME: 20:23 Assessment/Plan Assessment/Plan Chief Complaint/Hosp Course IMP: 1.BIV-ICD at EOL-awaiting generator change/pacer dependent 2.Cardiomyopathy with low EF 3.CHF-systolic acute on chronic 4.PNA 5. Metastatic breast ca 6. leukopenia 7. PLeural effusion s/p thoracentesis ?sent for cytology 8. REnal failure Recc: -Tele -serial ecg's -Follow rhythm/rate closely -contiue coreg -resume afterload reduction for low ef -Continue bronchodilators -Continue asa -Follow volume status closely and continue lasix diuresis -Follow WBC count Problems: Consultation Date/Type/Reason Admit Date/Time Jan 31, 2017 at 13:15 Initial Consult Date 02/01/17 Type of Consultation: cardiology Reason for Consultation cardiomyopathy Referring Provider: STEFANY BOYCE MD Exam/Review of Systems Vital Signs Vitals Vital Signs Date Time Temp Pulse Resp B/P Pulse Ox O2 Delivery O2 Flow Rate FiO2 02/06/17 20:17 85 02/06/17 19:44 98.1 18 123/64 94 02/06/17 16:33 5.0 02/06/17 16:33 Nasal Cannula Intake and Output 02/05/17 02/05/17 02/06/17 15:00 23:00 07:00 Intake Total 600 ml 300 ml Balance 600 ml 300 ml Exam Review of Systems: CONSTITUTIONAL: No fevers, chills. PULMONARY:mild sob CARDIOVASCULAR: No chest pain/palpitations GASTROINTESTINAL: No nausea/vomiting. GENITOURINARY: No hematuria/dysuria. MUSCULOSKELETAL: No myagias/arthalgias. PSYCHIATRIC: The patient denies depression. NEUROLOGIC: No weakness Constitutional: alert Psych: no complaints Head: normocephalic ENMT: mucosa pink and moist Neck: jvd (9 cm water), supple Respiratory: diminished breath sounds (at bases/B) Cardiovascular: regular rate and rhythm Gastrointestinal: non-tender, soft Musculoskeletal: muscle tone (normal) Extremities: edema (none) Neurological: other Results Result Diagram: 02/06/17 0745 02/06/17 0745 Results 24 hrs Laboratory Tests Test 02/06/17 07:45 White Blood Count 2.2 L Red Blood Count 3.47 L Hemoglobin 11.3 L Hematocrit 33.8 L Mean Corpuscular Volume 97.4 Mean Corpuscular Hemoglobin 32.6 Mean Corpuscular Hemoglobin Concent 33.4 Red Cell Distribution Width 13.8 Platelet Count 140 # Mean Platelet Volume 11.9 H Neutrophils % Segmented Neutrophils % (Manual) 41 Band Neutrophils % (Manual) 1 Lymphocytes % Lymphocytes % (Manual) 32 Reactive Lymphocytes % (Manual) 9 H Monocytes % Monocytes % (Manual) 6 Eosinophils % Eosinophils % (Manual) 4 Basophils % Basophils % (Manual) 5 H Metamyelocytes % (manual) 1 H Myelocytes % (Manual) 1 H Nucleated Red Blood Cells % 0.0 Neutrophils # Neutrophils # (Manual) 0.9 L Band Neutrophils # 0.0 Absolute Lymphocytes (Manual) 0.7 L Lymphocytes # Reactive Lymphocytes # 0.1 H Monocytes # Absolute Monocytes (Manual) 0.1 L Eosinophils # Basophils # Basophils # (Manual) 0.1 H Metamyelocytes # 0.0 Myelocytes # 0.0 Nucleated Red Blood Cells # Polychromasia 2+ Poikilocytosis 2+ Sodium Level 138 Potassium Level 4.1 Chloride Level 100 Carbon Dioxide Level 29 Anion Gap 13 Blood Urea Nitrogen 18 Creatinine 1.16 H Glucose Level 115 Calcium Level 8.7 Phosphorus Level 4.3 Magnesium Level 1.7 Albumin 3.7 Medications Medications Current Medications Miscellaneous Information (* Miscellaneous Pharmacy Order) DC all Joe, Belia... ONCE XX ; Start 01/31/17 at 13:30 Aspirin (Halfprin) 81 mg DAILY PO Last administered on 02/06/17 09:24; Admin Dose 81 MG; Start 01/31/17 at 16:00 Atorvastatin Calcium (Lipitor) 20 mg HS PO Last administered on 02/05/17 21:58 ; Admin Dose 20 MG; Start 01/31/17 at 21:00 Pantoprazole (Protonix Tab) 40 mg DAILY PO Last administered on 02/06/17 09:23 ; Admin Dose 40 MG; Start 01/31/17 at 16:00 Ondansetron HCl (Zofran Inj) 4 mg Q6H PRN IV NAUSEA AND/OR VOMITING; Start 01/31/17 at 14:30 Acetaminophen (Tylenol Tab) 650 mg Q6H PRN PO PAIN LEVEL 1-3 OR FEVER; Start 01/31/17 at 14:30 Docusate Sodium (Colace) 100 mg Q12H PRN PO CONSTIPATION; Start 01/31/17 at 14: 30 Guaifenesin (Mucinex) 600 mg BID PO Last administered on 02/06/17 09:22; Admin Dose 600 MG; Start 01/31/17 at 21:00 Carvedilol (Coreg) 6.25 mg BID PO Last administered on 02/06/17 09:22; Admin Dose 6.25 MG; Start 02/04/17 at 21:00 Patient Own Medication 1 ea HS PO ; Start 02/06/17 at 21:00; Stop 02/22/17 at 21:01 ROXIE VELARDE Feb 06, 2017 20:27
--- NOTE | 2017-02-06 20:39 | RADRPT ---
PROCEDURE: XR Chest. CLINICAL INDICATION: Shortness of breath. TECHNIQUE: Single frontal view. COMPARISON: 02/05/2017. FINDINGS: There is bilateral interstitial disease consistent with pulmonary edema. There is atelectasis at the lung bases. The heart is enlarged. There is calcification in the aorta consistent with atherosclerosis. There is a biventricular permanent pacemaker/internal cardiac defibrillator. There are moderate bilateral pleural effusions, unchanged. Surgical clips are present in the right a xilla. There are old healed right rib fractures. There is no pneumothorax. IMPRESSION: 1. No change from 02/05/2017. RPTAT: QQ .Amrit Eldridge MD, MD Date Time Electronically viewed and signed by .Amrit Eldridge MD, on 02/06/2017 20:38 .R/
[2017-02-06] MEDS: ATORVASTATIN 20 MG TAB PO SCH (21:58)
[2017-02-06] MEDS: PALBOCICLIB 100 MG PO SCH (21:59)
[2017-02-07] VITALS (15 sets, daily range): BP systolic 73–118; BP diastolic 42–70; PULSE 91–101; RESP 18–20
[2017-02-07] MEDS: FUROSEMIDE 40 MG INJ IV SCH (05:38)
[2017-02-07] MEDS: PANTOPRAZOLE (EC) 40 MG TAB PO SCH (09:30)
[2017-02-07] MEDS: GUAIFENESIN LA 600 MG TABSR PO SCH ×2 (09:30→21:03)
[2017-02-07] MEDS: LISINOPRIL 5 MG TAB PO SCH (09:31)
[2017-02-07] MEDS: ASPIRIN (EC) 81 MG TAB PO SCH (09:31)
[2017-02-07 09:35] LABS: ABNORMAL IP MESSAGE 1; HEMATOCRIT 33.8 % (37.0-47.0); HEMOGLOBIN 11.3 g/dl (12.0-16.0); MEAN CORPUSCULAR HEMOGLOBIN 32.8 pg (29.0-33.0); MEAN CORPUSCULAR HGB CONC 33.4 g/dl (32.0-37.0); MEAN CORPUSCULAR VOLUME 98.3 fl (82.0-101.0); PLATELET COUNT 177 10^3/UL (140-415); RED BLOOD COUNT 3.44 10^6/ul (4.20-5.40); RED CELL DISTRIBUTION WIDTH 13.3 % (11.5-14.5); WHITE BLOOD COUNT 2.3 10^3/ul (4.8-10.8)
[2017-02-07 09:41] LABS: POSITIVE DIFF @See below
[2017-02-07] MEDS: ALBUTEROL 0.083% (NEB) 2.5 MG/3 ML AMP HHN SCH ×4 (09:45→20:15)
[2017-02-07 09:57] LABS: ALBUMIN 3.8 g/dl (3.3-4.9); CALCIUM 9.2 mg/dl (8.4-10.2); CREATININE 1.39 mg/dl (0.44-1.00); MAGNESIUM 1.5 mg/dl (1.7-2.5); PHOSPHORUS 4.7 mg/dl (2.5-4.9); POTASSIUM 3.6 mmol/L (3.5-5.1)
--- NOTE | 2017-02-07 10:10 | RADRPT ---
PROCEDURE: Chest 1 views. CLINICAL INDICATION: Shortness of breath. TECHNIQUE: AP views of the chest was obtained. COMPARISON: Yesterday FINDINGS: The heart is large. Left-sided dual chamber, biventricular pacemaker/defibrillator has its leads ove r the heart and appears stable. Central pulmonary vascular congestion and interstitial prominence in both lungs is unchanged. Bilateral perihilar and lower lung infiltrates, combined with small to mod erate pleural effusions are stable. Surgical clips are seen in the right axilla. Osseous structures are unchanged. IMPRESSION: Cardiomegaly . Central pulmonary vascular congestion and interstitial prominence in both lungs. Stable bilateral perihilar and lower lung infiltrates, combined with small to moderate pleural effus ions. RPTAT: AA .Johnnie Lugo MD, Date Time Electronically viewed and signed by .Johnnie Lugo MD, on 02/07/2017 10:09 .P/
--- NOTE | 2017-02-07 11:05 | CONS ---
Date/Time of Note Date/Time of Note DATE: 02/07/17 TIME: 10:57 Assessment/Plan Assessment/Plan Additional Assessment/Plan 1.BIV-ICD at EOL-awaiting generator change/pacer dependent - pt scheduled for gen change tomorrow, if OK per hem-onc - concern is for elective procedure in a setting of malig disease 2.Cardiomyopathy with low EF - BIV Paced now 3.CHF-systolic acute on chronic - con't diuresis 4.PNA - treated with anti-Bx 5. Metastatic breast ca - with likely malignant effusion 6. leukopenia - on Rx 7. Pleural effusion s/p thoracentesis ?sent for cytology - lymphocytic, likely malignants 8. Renal failure Consultation Date/Type/Reason Admit Date/Time Jan 31, 2017 at 13:15 Type of Consultation: cardiology Referring Provider: STEFANY BOYCE MD 24 HR Interval Summary Free Text/Dictation No acute events - BP i stablw3 - will await on hem-onc eval to address life expectancy and care before gen change. ROS: No fever, no chills, no nausea, no vomiting, no diarrhea/constipation No recent weight changes No chest pain, no PND, no orthopnea No dizziness, blurred vision No thirst, no heat or cold intolerance Exam/Review of Systems Vital Signs Vitals Vital Signs Date Time Temp Pulse Resp B/P Pulse Ox O2 Delivery O2 Flow Rate FiO2 02/07/17 09:45 5.0 02/07/17 09:45 101 20 95 Nasal Cannula 02/07/17 07:54 98.3 118/70 Intake and Output 02/06/17 02/06/17 02/07/17 15:00 23:00 07:00 Intake Total 800 ml 400 ml Output Total 3 ml Balance 797 ml 400 ml Exam General: WN/WD/NAD, AOx 3 HEENT: Unicetric/atraumatic/EOMI (follows commands) NECK: JVD elevated, no thyromegaly Lymph: no lymphadenopathy HEART: regular with no S3, II/ systolic murmur at apex LUNGS: Coarse sounds ABD: soft, NT, ND, +BS : Intact Neuro: non focal SKIN: chronic changes EXT: trace edema Results Result Diagram: 02/07/17 0839 02/07/17 0839 Results 24 hrs Laboratory Tests Test 02/07/17 08:39 White Blood Count 2.3 L Red Blood Count 3.44 L Hemoglobin 11.3 L Hematocrit 33.8 L Mean Corpuscular Volume 98.3 Mean Corpuscular Hemoglobin 32.8 Mean Corpuscular Hemoglobin Concent 33.4 Red Cell Distribution Width 13.3 Platelet Count 177 # Mean Platelet Volume 11.0 H Neutrophils % Lymphocytes % Monocytes % Eosinophils % Basophils % Nucleated Red Blood Cells % 0.0 Neutrophils # Lymphocytes # Monocytes # Eosinophils # Basophils # Nucleated Red Blood Cells # Sodium Level 137 Potassium Level 3.6 Chloride Level 96 L Carbon Dioxide Level 33 H Anion Gap 12 Blood Urea Nitrogen 23 H Creatinine 1.39 H Glucose Level 122 Calcium Level 9.2 Phosphorus Level 4.7 Magnesium Level 1.5 L Albumin 3.8 Medications Medications Current Medications Miscellaneous Information (* Miscellaneous Pharmacy Order) DC all Lovenox, Hepari... ONCE XX ; Start 01/31/17 at 13:30 Aspirin (Halfprin) 81 mg DAILY PO Last administered on 02/07/17 09:31; Admin Dose 81 MG; Start 01/31/17 at 16:00 Atorvastatin Calcium (Lipitor) 20 mg HS PO Last administered on 02/06/17 21:58 ; Admin Dose 20 MG; Start 01/31/17 at 21:00 Pantoprazole (Protonix Tab) 40 mg DAILY PO Last administered on 02/07/17 09: 30; Admin Dose 40 MG; Start 01/31/17 at 16:00 Ondansetron HCl (Zofran Inj) 4 mg Q6H PRN IV NAUSEA AND/OR VOMITING; Start 01/31/17 at 14:30 Acetaminophen (Tylenol Tab) 650 mg Q6H PRN PO PAIN LEVEL 1-3 OR FEVER; Start 01/31/17 at 14:30 Docusate Sodium (Colace) 100 mg Q12H PRN PO CONSTIPATION; Start 01/31/17 at 14: 30 Guaifenesin (Mucinex) 600 mg BID PO Last administered on 02/07/17 09:30; Admin Dose 600 MG; Start 01/31/17 at 21:00 Carvedilol (Coreg) 6.25 mg BID PO Last administered on 02/07/17 09:31; Admin Dose 6.25 MG; Start 02/04/17 at 21:00 Patient Own Medication 1 ea HS PO Last administered on 02/06/17 21:59; Admin Dose 1 EA; Start 02/06/17 at 21:00; Stop 02/22/17 at 21:01 Lisinopril (Zestril) 2.5 mg DAILY PO Last administered on 02/07/17 09:31; Admin Dose 2.5 MG; Start 02/07/17 at 09:00 STEFANY BOYCE MD Feb 07, 2017 11:05
--- NOTE | 2017-02-07 11:45 | CONS ---
Date/Time of Note Date/Time of Note DATE: 02/07/17 TIME: 11:42 Assessment/Plan Assessment/Plan Additional Assessment/Plan Chest x-ray was reviewed from today which is showing small left pleural effusion. Assessment recommendations; 1. Patient admitted with shortness of breath due to left pleural effusion status post thoracentesis. Chest x-ray from today showing small recurrence. 2. Metastatic breast cancer , right mastectomy. 3. Mild loja cytopenia. 4. CHF. Continue current treatment. Consider discharge. Consultation Date/Type/Reason Admit Date/Time Jan 31, 2017 at 13:15 Initial Consult Date 02/01/17 Type of Consultation: Pulmonary Referring Provider: STEFANY BOYCE MD 24 HR Interval Summary Free Text/Dictation Patient's condition is stable. Remains completely awake alert. Denies any shortness of breath, chest pain, coughing or sputum production. General exam; elderly woman, awake and alert. Currently in no distress. Exam/Review of Systems Vital Signs Vitals Vital Signs Date Time Temp Pulse Resp B/P Pulse Ox O2 Delivery O2 Flow Rate FiO2 02/07/17 09:45 5.0 02/07/17 09:45 101 20 95 Nasal Cannula 02/07/17 07:54 98.3 118/70 Intake and Output 02/06/17 02/06/17 02/07/17 15:00 23:00 07:00 Intake Total 800 ml 400 ml Output Total 3 ml Balance 797 ml 400 ml Exam HEENT exam; supple neck, positive JVD. No lymphadenopathy. Midline trachea. No thyromegaly. Patient is edentulous and wears dentures. Has bilateral intraocular lens implants. Chest exam; diminished breath sounds at lung bases bilaterally. S1-S2 audible, no murmurs. Right mastectomy. Abdomen exam; soft, nontender. No organomegaly. Bowel sounds audible. Extremity exam; no peripheral edema. No clubbing. RADON INSPECTOR exam; no focal deficit. Results Result Diagram: 02/07/1783802/07/17838 Results 24 hrs Laboratory Tests Test 02/07/17 08:39 White Blood Count 2.3 L Red Blood Count 3.44 L Hemoglobin 11.3 L Hematocrit 33.8 L Mean Corpuscular Volume 98.3 Mean Corpuscular Hemoglobin 32.8 Mean Corpuscular Hemoglobin Concent 33.4 Red Cell Distribution Width 13.3 Platelet Count 177 # Mean Platelet Volume 11.0 H Neutrophils % Lymphocytes % Monocytes % Eosinophils % Basophils % Nucleated Red Blood Cells % 0.0 Neutrophils # Lymphocytes # Monocytes # Eosinophils # Basophils # Nucleated Red Blood Cells # Sodium Level 137 Potassium Level 3.6 Chloride Level 96 L Carbon Dioxide Level 33 H Anion Gap 12 Blood Urea Nitrogen 23 H Creatinine 1.39 H Glucose Level 122 Calcium Level 9.2 Phosphorus Level 4.7 Magnesium Level 1.5 L Albumin 3.8 Medications Medications Current Medications Miscellaneous Information (* Miscellaneous Pharmacy Order) DC all Lovenox, Hepari... ONCE XX ; Start 01/31/17 at 13:30 Aspirin (Halfprin) 81 mg DAILY PO Last administered on 02/07/17 09:31; Admin Dose 81 MG; Start 01/31/17 at 16:00 Atorvastatin Calcium (Lipitor) 20 mg HS PO Last administered on 02/06/17 21:58 ; Admin Dose 20 MG; Start 01/31/17 at 21:00 Pantoprazole (Protonix Tab) 40 mg DAILY PO Last administered on 02/07/17 09: 30; Admin Dose 40 MG; Start 01/31/17 at 16:00 Ondansetron HCl (Zofran Inj) 4 mg Q6H PRN IV NAUSEA AND/OR VOMITING; Start 01/31/17 at 14:30 Acetaminophen (Tylenol Tab) 650 mg Q6H PRN PO PAIN LEVEL 1-3 OR FEVER; Start 01/31/17 at 14:30 Docusate Sodium (Colace) 100 mg Q12H PRN PO CONSTIPATION; Start 01/31/17 at 14: 30 Guaifenesin (Mucinex) 600 mg BID PO Last administered on 02/07/17 09:30; Admin Dose 600 MG; Start 01/31/17 at 21:00 Carvedilol (Coreg) 6.25 mg BID PO Last administered on 02/07/17 09:31; Admin Dose 6.25 MG; Start 02/04/17 at 21:00 Patient Own Medication 1 ea HS PO Last administered on 02/06/17 21:59; Admin Dose 1 EA; Start 02/06/17 at 21:00; Stop 02/22/17 at 21:01 Lisinopril (Zestril) 2.5 mg DAILY PO Last administered on 02/07/17 09:31; Admin Dose 2.5 MG; Start 02/07/17 at 09:00 DAGOBERTO CAO Feb 07, 2017 11:45
--- NOTE | 2017-02-07 15:57 | PN ---
Date/Time of Note Date/Time of Note DATE: 02/07/17 TIME: 15:54 Assessment/Plan VTE Prophylaxis VTE Prophylaxis Intervention: SCD's Lines/Catheters IV [facility] Urinary Cath still in place: No Assessment/Plan Chief Complaint/Hosp Course Assessment/Plan 1. Left sided pleural effusion with consolidation s/p thoracentesis - patient resting comfortably - Repeat CXR showed pulmonary congestion and b/l effusion - Continue O2 as needed and wean to maintain saturations >90% - Fluid studies show exudative type fluid and no grow to date. AFB negative. Based on cytology findings, may need pleurex cath per Pulm - heme onc consulted, Dr. Syed, will give prognosis and speak with Dr. Pineda regarding pacer battery renewal. - on lasix -Id consulted for evaluation of effusion. 2. Left sided pneumonia- resolved - No signs of infection on CXR and WBC have been trending up and remains afebrile - Nebs PRN for SOB 3. Leukopenia secondary to infection vs chemotherapy - will continue to monitor. trending upward - Per son patient follows with a Dr. Tay 4. Cardiomyopathy with last documented ejection fraction of 45% while bi-V paced - increased Coreg due to persistent tachycardia 5. H/o Bivent ICD - in need of battery replacement, battery okay for 6 months per cardiology - once stable will replace. Plans for Monday pending heme/onc recs. - Cardiology input appreciated 6. H/o Breast CA with mets to pelvis - On PO chemo which patient brought her own medication supply with her 7. Anemia of chronic disease - monitor H/H 8. KAYLEE - Will renally dose medications and monitor Cr/BUN - improving 9. Disposition - continue lasix, will have to monitor resp status and pending recs from cardiology and oncology. Problems: Subjective 24 Hr Interval Summary Free Text/Dictation no acute change Exam/Review of Systems Vital Signs Vitals Vital Signs Date Time Temp Pulse Resp B/P Pulse Ox O2 Delivery O2 Flow Rate FiO2 02/07/17 15:24 98.2 94 18 94/51 93 02/07/17 12:41 Nasal Cannula 5.0 Intake and Output 02/06/17 02/06/17 02/07/17 15:00 23:00 07:00 Intake Total 800 ml 400 ml Output Total 3 ml Balance 797 ml 400 ml Exam Constitutional: alert, oriented, well developed, Mild respiratory distress Head: atraumatic, normocephalic Neck: non-tender, supple Respiratory: diminished breath sounds at bases bilaterally, no wheezing or crackles Cardiovascular: regular rate and rhythm, No edema, No murmurs/extra sounds Gastrointestinal: bowel sounds, non-tender, soft, No distended, No rebound or guarding Musculoskeletal: nl extremities to inspection Extremities: normal pulses, No clubbing, No cyanosis, No edema Skin: nl turgor Results Result Diagram: 02/07/1783802/07/17838 Results 24 hrs Laboratory Tests Test 02/07/17 08:39 White Blood Count 2.3 L Red Blood Count 3.44 L Hemoglobin 11.3 L Hematocrit 33.8 L Mean Corpuscular Volume 98.3 Mean Corpuscular Hemoglobin 32.8 Mean Corpuscular Hemoglobin Concent 33.4 Red Cell Distribution Width 13.3 Platelet Count 177 # Mean Platelet Volume 11.0 H Neutrophils % Lymphocytes % Monocytes % Eosinophils % Basophils % Nucleated Red Blood Cells % 0.0 Neutrophils # Lymphocytes # Monocytes # Eosinophils # Basophils # Nucleated Red Blood Cells # Sodium Level 137 Potassium Level 3.6 Chloride Level 96 L Carbon Dioxide Level 33 H Anion Gap 12 Blood Urea Nitrogen 23 H Creatinine 1.39 H Glucose Level 122 Calcium Level 9.2 Phosphorus Level 4.7 Magnesium Level 1.5 L Albumin 3.8 Medications Medications Current Medications Miscellaneous Information (* Miscellaneous Pharmacy Order) DC all Lovenox, Hepari... ONCE XX ; Start 01/31/17 at 13:30 Aspirin (Halfprin) 81 mg DAILY PO Last administered on 02/07/17 09:31; Admin Dose 81 MG; Start 01/31/17 at 16:00 Atorvastatin Calcium (Lipitor) 20 mg HS PO Last administered on 02/06/17 21:58 ; Admin Dose 20 MG; Start 01/31/17 at 21:00 Pantoprazole (Protonix Tab) 40 mg DAILY PO Last administered on 02/07/17 09: 30; Admin Dose 40 MG; Start 01/31/17 at 16:00 Ondansetron HCl (Zofran Inj) 4 mg Q6H PRN IV NAUSEA AND/OR VOMITING; Start 01/31/17 at 14:30 Acetaminophen (Tylenol Tab) 650 mg Q6H PRN PO PAIN LEVEL 1-3 OR FEVER; Start 01/31/17 at 14:30 Docusate Sodium (Colace) 100 mg Q12H PRN PO CONSTIPATION; Start 01/31/17 at 14: 30 Guaifenesin (Mucinex) 600 mg BID PO Last administered on 02/07/17 09:30; Admin Dose 600 MG; Start 01/31/17 at 21:00 Carvedilol (Coreg) 6.25 mg BID PO Last administered on 02/07/17 09:31; Admin Dose 6.25 MG; Start 02/04/17 at 21:00 Patient Own Medication 1 ea HS PO Last administered on 02/06/17 21:59; Admin Dose 1 EA; Start 02/06/17 at 21:00; Stop 02/22/17 at 21:01 Lisinopril (Zestril) 2.5 mg DAILY PO Last administered on 02/07/17 09:31; Admin Dose 2.5 MG; Start 02/07/17 at 09:00 DIMA COVARRUBIAS Feb 07, 2017 15:57
--- NOTE | 2017-02-07 16:16 | CONS ---
DATE OF ADMISSION: 01/31/2017 DATE OF CONSULTATION: 02/07/2017 TYPE OF CONSULTATION: Infectious Disease. REASON FOR CONSULTATION: Antibiotic management. HISTORY OF PRESENT ILLNESS: Elaine Bennett is an 81-year-old female with a number of past medical problems who comes in for replacement of an ICD battery, but was found to have abno rmal labs and chest x-ray. PAST MEDICAL HISTORY: Past problems include: 1. Hypertension. 2. Cardiomyopathy. 3. Hyperlipidemia. 4. Metastatic breast carcinoma status post left mastectomy and axillary resection. 5. Pelvic CA, currently undergoing treatment. The patient presented for elective replacement of an ICD battery and was found to have abnormal labs and x-ray. He has been experiencing chest congesti on and cough for the past 2 weeks. She was found to have pneumonia in the emergency room and was di scharged on oral antibiotics but has been coughing and unable to bring up any sputum. She denies a [place] sick contacts, chills, nausea, vomiting, shortness of breath or chest pain. On admission, white count was 1.9 so she was markedly leukopenic, H and H 10.4 and 30.3, platelet count of 247,000. BUN and creatinine 17/1.29. On admission, she has 50% neutrophils, 2% polys. On the , white count came up to 2.2 and by now it is only 2.3. She has 41% neutrophils and 1 band on 02/06/2017. BUN an d creatinine currently is 23/1.39. The patient had a thoracentesis with removal of 800 mL of fluid, 683 white cells, total protein 4.8, consistent with exudate. LVH was [address] scan of the chest prior to the thoracentesis showed status post right mastectomy, enlarged left axillary lymph n odes, as well as soft tissue mass that was seen within the mediastinum and enlarged mediastinal lymp h nodes as well as diffuse sclerotic and lytic osseous lesions consistent with metastatic disease, a ortic and coronary atherosclerosis, large left and moderate right pleural effusions with associated atelectasis. She is status post right mastectomy, right axillary node dissection and left chest wal l AICD pacer device. Her chest x-ray currently shows central pulmonary vascular congestion and inte rstitial prominence in both lungs, stable bilateral perihilar and lower lung infiltrates. She has a left-sided dual chamber biventricular pacemaker and defibrillator. HOSPITAL COURSE: The patient was seen by Dr. Pineda in cardiology, Dr. Blevins and Dr. Rodriguez in pul monary and Dr. Beal. On the 02/03/2017, it was noted that she had left-sided pleural effusion wi th consolidation, status post thoracentesis. No longer requiring supplemental oxygen. Fluid shows exudative type of fluid. AST is negative. Left-sided pneumonia has resolved. No signs on chest x- ray and a WBC has been trending up. She remains afebrile. Leukopenia secondary to chemotherapy. Elsa espinoza has a cardiomyopathy with the last documented ejection fraction of 45%. She is currently on no an tibiotics. As noted, her last x-ray just showed stable bilateral perihilar and lower lung infiltrat es. Her thoracentesis has not grown out anything. PAST MEDICAL HISTORY: Operations as outlined. FAMILY HISTORY: Noncontributory. SOCIAL HISTORY: She does not smoke, drink or abuse drugs. ALLERGIES: NONE TO PENICILLIN, SULFA OR FOODS. MEDICATIONS: Per chart. REVIEW OF SYSTEMS: As per HPI. PHYSICAL EXAMINATION: GENERAL: The patient is an 81-year-old female who is awake, responsive, in no acute distress. VITAL SIGNS: Stable. She is afebrile. SKIN: Without generalized rash. HEENT: Within normal limits. NECK: Supple. LYMPH NODES: None palpable. CHEST: Decreased breath sounds at the bases, especially on the left side. HEART: Without murmur or gallop. ABDOMEN: Soft, nontender, without organosplenomegaly or masses. EXTREMITIES: Without cyanosis, clubbing, or edema. RECTAL AND GENITAL: Deferred. NEUROLOGIC: No focal neurological abnormalities. IMPRESSION AND PLAN: The patient has evidence of metastatic breast cancer. She is currently afebri le. At this point, there is no evidence for ongoing infection. Her white count is still, however, quite low at 2.3. Will observe her on current therapy. [facility] and to [facility] various consultants. Dictated By: TARA BAUGH MD, JD/TAURUS Conf#: [id number] DID#: [id number]
[2017-02-07] MEDS: FUROSEMIDE 20 MG INJ IV SCH (17:55)
[2017-02-07] MEDS ORDERED: ALBUMIN HUMAN 25% 100 ML IV ONE (21:00)
[2017-02-07] MEDS ORDERED: SOD CHLORIDE 0.9% 250 ML IV ONE (21:00)
[2017-02-07] MEDS: ATORVASTATIN 20 MG TAB PO SCH (21:03)
[2017-02-07] MEDS: PALBOCICLIB 100 MG PO SCH (21:06)
[2017-02-07] MEDS ORDERED: MAGNESIUM SULFATE 2 GM/50 ML 50 ML IVPB ONE (22:30)
[2017-02-07] MEDS ORDERED: MIDODRINE 5 MG TAB PO ONE (22:30)
[2017-02-08] VITALS (13 sets, daily range): BP systolic 94–143; BP diastolic 51–64; PULSE 86–108; RESP 17–20
[2017-02-08] MEDS: FUROSEMIDE 20 MG INJ IV SCH (06:00)
[2017-02-08] MEDS: ASPIRIN (EC) 81 MG TAB PO SCH ×2 (07:54→13:35)
[2017-02-08] MEDS: LISINOPRIL 5 MG TAB PO SCH ×2 (07:55→09:00)
[2017-02-08] MEDS: PANTOPRAZOLE (EC) 40 MG TAB PO SCH ×2 (07:55→13:36)
[2017-02-08] MEDS: GUAIFENESIN LA 600 MG TABSR PO SCH ×2 (07:55→13:35)
[2017-02-08] MEDS: ALBUTEROL 0.083% (NEB) 2.5 MG/3 ML AMP HHN SCH ×4 (08:29→20:26)
[2017-02-08 09:32] LABS: ABNORMAL IP MESSAGE 1; BASOPHILS % 1.1 % (0.0-2.0); EOSINOPHILS # 0.1 10^3/ul (0.0-0.5); HEMATOCRIT 31.7 % (37.0-47.0); HEMOGLOBIN 10.4 g/dl (12.0-16.0); LYMPHOCYTES # 0.5 10^3/ul (0.8-2.9); LYMPHOCYTES % 17.8 % (15.0-51.0); MEAN CORPUSCULAR HEMOGLOBIN 32.5 pg (29.0-33.0); MEAN CORPUSCULAR HGB CONC 32.8 g/dl (32.0-37.0); MEAN CORPUSCULAR VOLUME 99.1 fl (82.0-101.0); MEAN PLATELET VOLUME 11.7 fl (7.4-10.4); MONOCYTE # 0.5 10^3/ul (0.3-0.9); MONOCYTES % 16.7 % (0.0-11.0); NEUTROPHIL # 1.6 10^3/ul (1.6-7.5); NEUTROPHILS % 59.7 % (39.0-77.0); PLATELET COUNT 157 10^3/UL (140-415); RED CELL DISTRIBUTION WIDTH 13.4 % (11.5-14.5); WHITE BLOOD COUNT 2.8 10^3/ul (4.8-10.8)
[2017-02-08 09:37] LABS: POSITIVE DIFF @See below
[2017-02-08 10:03] LABS: CALCIUM 8.6 mg/dl (8.4-10.2); CREATININE 1.48 mg/dl (0.44-1.00); MAGNESIUM 2.4 mg/dl (1.7-2.5); PHOSPHORUS 4.2 mg/dl (2.5-4.9); POTASSIUM 3.7 mmol/L (3.5-5.1)
--- NOTE | 2017-02-08 12:47 | CONS ---
Date/Time of Note Date/Time of Note DATE: 02/08/17 TIME: 12:45 Assessment/Plan Assessment/Plan Additional Assessment/Plan Assessment and recommendations; 1. Patient admitted with shortness of breath due to pleural effusion status post thoracentesis. Chest x-ray showing recurrence of mild effusions bilaterally. 2. 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 3. Hypoxemia secondary to #2 above. Continue current supportive care. Agree with stopping Lasix. Consider discharge on home O2. Prognosis is poor. Consultation Date/Type/Reason Admit Date/Time Jan 31, 2017 at 13:15 Initial Consult Date 02/01/17 Type of Consultation: Pulmonary Referring Provider: STEFANY BOYCE MD 24 HR Interval Summary Free Text/Dictation Patient's condition is stable. Denies any significant shortness of breath, any chest pain. General exam; elderly woman, awake and alert. Currently in no distress. Exam/Review of Systems Vital Signs Vitals Vital Signs Date Time Temp Pulse Resp B/P Pulse Ox O2 Delivery O2 Flow Rate FiO2 02/08/17 12:12 89 02/08/17 11:38 98.1 17 96/57 92 02/08/17 08:29 Nasal Cannula 6.0 Intake and Output 02/07/17 02/07/17 02/08/17 15:00 23:00 07:00 Intake Total 870 ml 390 ml Output Total 300 ml Balance 870 ml 90 ml Exam HEENT exam; supple neck, no JVD. No lymphadenopathy. Midline trachea. No thyromegaly. Pharynx is clear. Chest exam; diminished breath sound lung bases bilaterally. S1-S2 audible, no murmurs. Regular rhythm. Abdomen exam; soft, nontender. No organomegaly. Bowel sounds audible. Extremity exam; no edema. DAIRY SCIENTIST exam; no focal deficit. Results Result Diagram: 02/08/1782002/08/17820 Results 24 hrs Laboratory Tests Test 02/08/17 08:21 White Blood Count 2.8 #L Red Blood Count 3.20 L Hemoglobin 10.4 L Hematocrit 31.7 L Mean Corpuscular Volume 99.1 Mean Corpuscular Hemoglobin 32.5 Mean Corpuscular Hemoglobin Concent 32.8 Red Cell Distribution Width 13.4 Platelet Count 157 Mean Platelet Volume 11.7 H Neutrophils % 59.7 Lymphocytes % 17.8 Monocytes % 16.7 H Eosinophils % 4.0 Basophils % 1.1 Nucleated Red Blood Cells % 0.0 Neutrophils # 1.6 Lymphocytes # 0.5 L Monocytes # 0.5 Eosinophils # 0.1 Basophils # 0.0 Nucleated Red Blood Cells # 0.0 Sodium Level 135 Potassium Level 3.7 Chloride Level 95 L Carbon Dioxide Level 32 H Anion Gap 12 Blood Urea Nitrogen 27 H Creatinine 1.48 H Glucose Level 113 Calcium Level 8.6 Phosphorus Level 4.2 Magnesium Level 2.4 Medications Medications Current Medications Miscellaneous Information (* Miscellaneous Pharmacy Order) DC all Lovenox, Hepari... ONCE XX ; Start 01/31/17 at 13:30 Aspirin (Halfprin) 81 mg DAILY PO Last administered on 02/07/17 09:31; Admin Dose 81 MG; Start 01/31/17 at 16:00 Atorvastatin Calcium (Lipitor) 20 mg HS PO Last administered on 02/07/17 21: 03; Admin Dose 20 MG; Start 01/31/17 at 21:00 Pantoprazole (Protonix Tab) 40 mg DAILY PO Last administered on 02/07/17 09: 30; Admin Dose 40 MG; Start 01/31/17 at 16:00 Ondansetron HCl (Zofran Inj) 4 mg Q6H PRN IV NAUSEA AND/OR VOMITING; Start 01/31/17 at 14:30 Acetaminophen (Tylenol Tab) 650 mg Q6H PRN PO PAIN LEVEL 1-3 OR FEVER; Start 01/31/17 at 14:30 Docusate Sodium (Colace) 100 mg Q12H PRN PO CONSTIPATION; Start 01/31/17 at 14: 30 Guaifenesin (Mucinex) 600 mg BID PO Last administered on 02/07/17 21:03; Admin Dose 600 MG; Start 01/31/17 at 21:00 Carvedilol (Coreg) 6.25 mg BID PO Last administered on 02/07/17 09:31; Admin Dose 6.25 MG; Start 02/04/17 at 21:00 Patient Own Medication 1 ea HS PO Last administered on 02/07/17 21:06; Admin Dose 1 EA; Start 02/06/17 at 21:00; Stop 02/22/17 at 21:01 Lisinopril (Zestril) 2.5 mg DAILY PO Last administered on 02/07/17t 09:31; Admin Dose 2.5 MG; Start 02/07/17 at 09:00 DAGOBERTO CAO Feb 08, 2017 12:47
--- NOTE | 2017-02-08 14:22 | PN ---
Date/Time of Note Date/Time of Note DATE: 02/08/17 TIME: 14:17 Assessment/Plan VTE Prophylaxis VTE Prophylaxis Intervention: SCD's Lines/Catheters IV [facility]from [facility] Peripheral IV Urinary Cath still in place: No Assessment/Plan Chief Complaint/Hosp Course Assessment/Plan 1. Left sided pleural effusion with consolidation s/p thoracentesis - patient resting comfortably - Repeat CXR showed pulmonary congestion and b/l effusion - Continue O2 as needed and wean to maintain saturations >90% - Fluid studies show exudative type fluid and no grow to date. AFB negative. Based on cytology findings, may need pleurex cath per Pulm in the future. - heme onc consulted, Dr. tay, patient is stage 4 for quite some time, progressing, may want to start inpatient xeloda. - on lasix, but unlikely to benefit given maglignant cause of effusion, stopping lasix also due to rising Cr. -ID consulted for evaluation of effusion. no additional abx for now. 2. Left sided pneumonia- resolved - No signs of infection on CXR and WBC have been trending up and remains afebrile - Nebs PRN for SOB 3. Leukopenia secondary to infection vs chemotherapy - will continue to monitor. trending upward - Per son patient follows with a Dr. Tay 4. Cardiomyopathy with last documented ejection fraction of 45% while bi-V paced - increased Coreg due to persistent tachycardia 5. H/o Bivent ICD - in need of battery replacement, battery okay for 3-6 months per cardiology - once stable will replace outpatient. - Cardiology input appreciated 6. H/o Breast CA with mets to pelvis - On PO chemo which patient brought her own medication supply with her 7. Anemia of chronic disease - monitor H/H 8. KAYLEE - Will renally dose medications and monitor Cr/BUN - improving 9. Disposition - stop lasix. pending heme/onc recs, but ultimately will attempt to send home on home O2 given likely malignant effusion, however too high of 02, if can not get down to 2-3L NC, will have to send to SNF. Problems: Subjective 24 Hr Interval Summary Free Text/Dictation no acute complaints, however can not get off O2 Exam/Review of Systems Vital Signs Vitals Vital Signs Date Time Temp Pulse Resp B/P Pulse Ox O2 Delivery O2 Flow Rate FiO2 02/08/17 13:47 103 18 96 Nasal Cannula 6.0 02/08/17 11:38 98.1 96/57 Intake and Output 02/07/17 02/07/17 02/08/17 15:00 23:00 07:00 Intake Total 870 ml 390 ml Output Total 300 ml Balance 870 ml 90 ml Exam Constitutional: alert, oriented, well developed, no respiratory distress, on 6L NC Head: atraumatic, normocephalic Neck: non-tender, supple Respiratory: diminished breath sounds at bases bilaterally, no wheezing or crackles Cardiovascular: regular rate and rhythm, No edema, No murmurs/extra sounds Gastrointestinal: bowel sounds, non-tender, soft, No distended, No rebound or guarding Musculoskeletal: nl extremities to inspection Extremities: normal pulses, No clubbing, No cyanosis, No edema Skin: nl turgor Results Result Diagram: 02/08/17 0821 02/08/17 0821 Results 24 hrs Laboratory Tests Test 02/08/17 08:21 White Blood Count 2.8 #L Red Blood Count 3.20 L Hemoglobin 10.4 L Hematocrit 31.7 L Mean Corpuscular Volume 99.1 Mean Corpuscular Hemoglobin 32.5 Mean Corpuscular Hemoglobin Concent 32.8 Red Cell Distribution Width 13.4 Platelet Count 157 Mean Platelet Volume 11.7 H Neutrophils % 59.7 Lymphocytes % 17.8 Monocytes % 16.7 H Eosinophils % 4.0 Basophils % 1.1 Nucleated Red Blood Cells % 0.0 Neutrophils # 1.6 Lymphocytes # 0.5 L Monocytes # 0.5 Eosinophils # 0.1 Basophils # 0.0 Nucleated Red Blood Cells # 0.0 Sodium Level 135 Potassium Level 3.7 Chloride Level 95 L Carbon Dioxide Level 32 H Anion Gap 12 Blood Urea Nitrogen 27 H Creatinine 1.48 H Glucose Level 113 Calcium Level 8.6 Phosphorus Level 4.2 Magnesium Level 2.4 Medications Medications Current Medications Miscellaneous Information (* Miscellaneous Pharmacy Order) DC all Lovenox, Hepari... ONCE XX ; Start 01/31/17 at 13:30 Aspirin (Halfprin) 81 mg DAILY PO Last administered on 02/08/17 13:35; Admin Dose 81 MG; Start 01/31/17 at 16:00 Atorvastatin Calcium (Lipitor) 20 mg HS PO Last administered on 02/07/17 21: 03; Admin Dose 20 MG; Start 01/31/17 at 21:00 Pantoprazole (Protonix Tab) 40 mg DAILY PO Last administered on 02/08/17 13: 36; Admin Dose 40 MG; Start 01/31/17 at 16:00 Ondansetron HCl (Zofran Inj) 4 mg Q6H PRN IV NAUSEA AND/OR VOMITING; Start 01/31/17 at 14:30 Acetaminophen (Tylenol Tab) 650 mg Q6H PRN PO PAIN LEVEL 1-3 OR FEVER; Start 01/31/17 at 14:30 Docusate Sodium (Colace) 100 mg Q12H PRN PO CONSTIPATION; Start 01/31/17 at 14: 30 Guaifenesin (Mucinex) 600 mg BID PO Last administered on 02/08/17 13:35; Admin Dose 600 MG; Start 01/31/17 at 21:00 Carvedilol (Coreg) 6.25 mg BID PO Last administered on 02/07/17 09:31; Admin Dose 6.25 MG; Start 02/04/17 at 21:00 Patient Own Medication 1 ea HS PO Last administered on 02/07/17 21:06; Admin Dose 1 EA; Start 02/06/17 at 21:00; Stop 02/22/17 at 21:01 Lisinopril (Zestril) 2.5 mg DAILY PO Last administered on 02/07/17 09:31; Admin Dose 2.5 MG; Start 02/07/17 at 09:00 DIMA COVARRUBIAS Feb 08, 2017 14:22
--- NOTE | 2017-02-08 15:14 | PN ---
DATE: 02/08/2017 SUBJECTIVE: No acute events overnight. No fevers. Patient is alert, looks comfortable. Denies pain. WBC 2.8, no shift, no bands. BUN 27, creatinine 1.48. PHYSICAL EXAMINATION: GENERAL: Well-developed, elderly woman who is alert, in no distress. HEENT: Head atraumatic, normocephalic. Sclerae anicteric. Buccal mucosa pink , dry. NECK: Supple. CHEST: Rise symmetrical. Breath sounds diminished to bases. HEART: S1, S2. ABDOMEN: Soft, bowel tones present. EXTREMITIES: Without cyanosis. ASSESSMENT: 1. Status post shortness of breath secondary to pleural effusions. 2. Metastatic breast cancer status post left mastectomy and axillary resection. 3. Pelvic cancer, current undergoing treatment. 4. Cardiomyopathy. PLAN: Patient remains clinically and hemodynamically stable, had been afebrile. She underwent thoracentesis on admission with fluid cultures being negative and no evidence of infection. Patient is seen by multiple consultants. Awaiting for generator change of her permanent pacemaker once cleared by hematology/oncology. Dictated By: TULIO BLANCO CLAIM AUDITOR for TARA BAUGH MD NI/NTS Conf#: [id number] DID#: [id number] ESTRADA
--- NOTE | 2017-02-08 18:25 | CONS ---
Date/Time of Note Date/Time of Note DATE: 02/08/17 TIME: 18:21 Assessment/Plan Assessment/Plan Chief Complaint/Hosp Course IMP: 1.BIV-ICD at EOL-awaiting generator change/pacer dependent 2.Cardiomyopathy with low EF 3.CHF-systolic acute on chronic 4.PNA 5. Metastatic breast ca 6. leukopenia 7. Pleural effusion s/p thoracentesis ?sent for cytology 8. REnal failure Recc: -Tele -serial ecg's -Follow rhythm/rate closely -contiue coreg/zestril as toleraed only -Continue bronchodilators -Continue asa -Follow volume status closely and continue lasix diuresis -Follow WBC count -to be resumed on CTX with generator change to be made as an outpatient Problems: Consultation Date/Type/Reason Admit Date/Time Jan 31, 2017 at 13:15 Initial Consult Date 02/01/17 Type of Consultation: cardiology Reason for Consultation cardiomyopathy Referring Provider: STEFANY BOYCE MD Exam/Review of Systems Vital Signs Vitals Vital Signs Date Time Temp Pulse Resp B/P Pulse Ox O2 Delivery O2 Flow Rate FiO2 02/08/17 16:49 99 20 95 Nasal Cannula 5.0 02/08/17 15:56 97.9 110/63 Intake and Output 02/07/17 02/07/17 02/08/17 15:00 23:00 07:00 Intake Total 870 ml 390 ml Output Total 300 ml Balance 870 ml 90 ml Exam Review of Systems: CONSTITUTIONAL: No fevers, chills. PULMONARY: No sob CARDIOVASCULAR: No chest pain/palpitations GASTROINTESTINAL: No nausea/vomiting. GENITOURINARY: No hematuria/dysuria. MUSCULOSKELETAL: No myagias/arthalgias. PSYCHIATRIC: The patient denies depression. NEUROLOGIC: No weakness Constitutional: alert Psych: no complaints Head: normocephalic ENMT: mucosa pink and moist Neck: jvd (8 cm water), supple Respiratory: clear to auscultation Cardiovascular: regular rate and rhythm Gastrointestinal: non-tender, soft Musculoskeletal: muscle tone (normal) Extremities: edema (none) Neurological: other (No focal deficits) Results Result Diagram: 02/08/17 0821 02/08/17 0821 Results 24 hrs Laboratory Tests Test 02/08/17 08:21 White Blood Count 2.8 #L Red Blood Count 3.20 L Hemoglobin 10.4 L Hematocrit 31.7 L Mean Corpuscular Volume 99.1 Mean Corpuscular Hemoglobin 32.5 Mean Corpuscular Hemoglobin Concent 32.8 Red Cell Distribution Width 13.4 Platelet Count 157 Mean Platelet Volume 11.7 H Neutrophils % 59.7 Lymphocytes % 17.8 Monocytes % 16.7 H Eosinophils % 4.0 Basophils % 1.1 Nucleated Red Blood Cells % 0.0 Neutrophils # 1.6 Lymphocytes # 0.5 L Monocytes # 0.5 Eosinophils # 0.1 Basophils # 0.0 Nucleated Red Blood Cells # 0.0 Sodium Level 135 Potassium Level 3.7 Chloride Level 95 L Carbon Dioxide Level 32 H Anion Gap 12 Blood Urea Nitrogen 27 H Creatinine 1.48 H Glucose Level 113 Calcium Level 8.6 Phosphorus Level 4.2 Magnesium Level 2.4 Medications Medications Current Medications Miscellaneous Information (* Miscellaneous Pharmacy Order) DC all Lovenox, Hepari... ONCE XX ; Start 01/31/17 at 13:30 Aspirin (Halfprin) 81 mg DAILY PO Last administered on 02/08/17 13:35; Admin Dose 81 MG; Start 01/31/17 at 16:00 Atorvastatin Calcium (Lipitor) 20 mg HS PO Last administered on 02/07/17 21: 03; Admin Dose 20 MG; Start 01/31/17 at 21:00 Pantoprazole (Protonix Tab) 40 mg DAILY PO Last administered on 02/08/17 13: 36; Admin Dose 40 MG; Start 01/31/17 at 16:00 Ondansetron HCl (Zofran Inj) 4 mg Q6H PRN IV NAUSEA AND/OR VOMITING; Start 01/31/17 at 14:30 Acetaminophen (Tylenol Tab) 650 mg Q6H PRN PO PAIN LEVEL 1-3 OR FEVER; Start 01/31/17 at 14:30 Docusate Sodium (Colace) 100 mg Q12H PRN PO CONSTIPATION; Start 01/31/17 at 14: 30 Guaifenesin (Mucinex) 600 mg BID PO Last administered on 02/08/17 13:35; Admin Dose 600 MG; Start 01/31/17 at 21:00 Carvedilol (Coreg) 6.25 mg BID PO Last administered on 02/07/17 09:31; Admin Dose 6.25 MG; Start 02/04/17 at 21:00 Patient Own Medication 1 ea HS PO Last administered on 02/07/17 21:06; Admin Dose 1 EA; Start 02/06/17 at 21:00; Stop 02/22/17 at 21:01 Lisinopril (Zestril) 2.5 mg DAILY PO Last administered on 02/07/17 09:31; Admin Dose 2.5 MG; Start 02/07/17 at 09:00 ROXIE VELARDE Feb 08, 2017 18:25
[2017-02-08] MEDS: PALBOCICLIB 100 MG PO SCH (21:00)
[2017-02-08] MEDS: ATORVASTATIN 20 MG TAB PO SCH (21:23)
[2017-02-09] VITALS (7 sets, daily range): BP systolic 95–107; BP diastolic 54–61; PULSE 93–98; RESP 16–20
[2017-02-09] MEDS: ALBUTEROL 0.083% (NEB) 2.5 MG/3 ML AMP HHN SCH ×3 (08:09→17:53)
[2017-02-09 09:24] LABS: CREATININE 1.23 mg/dl (0.44-1.00); MAGNESIUM 2.2 mg/dl (1.7-2.5); PHOSPHORUS 3.7 mg/dl (2.5-4.9); POTASSIUM 3.7 mmol/L (3.5-5.1)
[2017-02-09] MEDS: PANTOPRAZOLE (EC) 40 MG TAB PO SCH (09:34)
[2017-02-09] MEDS: ASPIRIN (EC) 81 MG TAB PO SCH (09:34)
[2017-02-09] MEDS: GUAIFENESIN LA 600 MG TABSR PO SCH (09:34)
[2017-02-09] MEDS: LISINOPRIL 5 MG TAB PO SCH (09:35)
[2017-02-09] MEDS ORDERED: CARV3.1260 PO (12:18)
--- NOTE | 2017-02-09 12:20 | PDOCDIS ---
Discharge Instructions CONDITION Patient Condition: Stable HOME CARE INSTRUCTIONS: Special Diet: Regular diet ACTIVITY: Activity Restrictions: Slowly Increase Activity FOLLOW UP/APPOINTMENTS Follow-up Plan 1. Follow up with your oncologist and brine tank separator operator as soon as possible 2. follow up with Dr. Blevins for further pulmonary issues 3. Take medications as directed. DIMA COVARRUBIAS Feb 09, 2017 12:20
--- NOTE | 2017-02-09 13:38 | CONS ---
Date/Time of Note Date/Time of Note DATE: 02/09/17 TIME: 13:37 Assessment/Plan Assessment/Plan Chief Complaint/Hosp Course SUBJECTIVE: No acute events overnight. No fevers. Patient looks comfortable. Denies pain. PHYSICAL EXAMINATION: GENERAL: Well-developed, elderly woman who is alert, in no distress. HEENT: Head atraumatic, normocephalic. Sclerae anicteric. Buccal mucosa pink , dry. NECK: Supple. CHEST: Rise symmetrical. Breath sounds diminished to bases. HEART: S1, S2. ABDOMEN: Soft, bowel tones present. EXTREMITIES: Without cyanosis. ASSESSMENT: 1. Status post shortness of breath secondary to pleural effusions. 2. Metastatic breast cancer status post left mastectomy and axillary resection. 3. Pelvic cancer, current undergoing treatment. 4. Cardiomyopathy. PLAN: Patient remains stable, off abx. Problems: Consultation Date/Type/Reason Admit Date/Time Jan 31, 2017 at 13:15 Initial Consult Date 02/01/17 Type of Consultation: ID Referring Provider: STEFANY BOYCE MD Exam/Review of Systems Vital Signs Vitals Vital Signs Date Time Temp Pulse Resp B/P Pulse Ox O2 Delivery O2 Flow Rate FiO2 02/09/17 11:42 98.7 98 18 95/57 96 02/09/17 09:17 Nasal Cannula 4.0 Intake and Output 02/08/17 02/08/17 02/09/17 15:00 23:00 07:00 Intake Total 750 ml 360 ml Balance 750 ml 360 ml Results Result Diagram: 02/08/17 0821 02/09/17 0721 Results 24 hrs Laboratory Tests Test 02/09/17 07:21 Sodium Level 134 L Potassium Level 3.7 Chloride Level 96 L Carbon Dioxide Level 31 Anion Gap 11 Blood Urea Nitrogen 25 H Creatinine 1.23 H Glucose Level 114 Calcium Level 9.0 Phosphorus Level 3.7 Magnesium Level 2.2 Medications Medications Current Medications Miscellaneous Information (* Miscellaneous Pharmacy Order) DC all Lovenox, Hepari... ONCE XX ; Start 01/31/17 at 13:30 Aspirin (Halfprin) 81 mg DAILY PO Last administered on 02/09/17 09:34; Admin Dose 81 MG; Start 01/31/17 at 16:00 Atorvastatin Calcium (Lipitor) 20 mg HS PO Last administered on 02/08/17 21: 23; Admin Dose 20 MG; Start 01/31/17 at 21:00 Pantoprazole (Protonix Tab) 40 mg DAILY PO Last administered on 02/09/17 09: 34; Admin Dose 40 MG; Start 01/31/17 at 16:00 Ondansetron HCl (Zofran Inj) 4 mg Q6H PRN IV NAUSEA AND/OR VOMITING; Start 01/31/17 at 14:30 Acetaminophen (Tylenol Tab) 650 mg Q6H PRN PO PAIN LEVEL 1-3 OR FEVER; Start 01/31/17 at 14:30 Docusate Sodium (Colace) 100 mg Q12H PRN PO CONSTIPATION; Start 01/31/17 at 14: 30 Guaifenesin (Mucinex) 600 mg BID PO Last administered on 02/09/17 09:34; Admin Dose 600 MG; Start 01/31/17 at 21:00 Patient Own Medication 1 ea HS PO Last administered on 02/07/17 21:06; Admin Dose 1 EA; Start 02/06/17 at 21:00; Stop 02/22/17 at 21:01 Lisinopril (Zestril) 2.5 mg DAILY PO Last administered on 02/09/17 09:35; Admin Dose 2.5 MG; Start 02/07/17 at 09:00 Carvedilol (Coreg) 3.125 mg BID PO Last administered on 02/09/17 09:35; Admin Dose 3.125 MG; Start 02/08/17 at 21:00 TULIO BLANCO NP Feb 09, 2017 13:38
--- NOTE | 2017-02-09 14:30 | DS ---
Date/Time of Note Date/Time of Note DATE: 02/09/17 TIME: 14:28 Discharge Summary Admission/Discharge Info Admit Date/Time Jan 31, 2017 at 13:15 Discharge Date/Time Patient Condition: Stable Hx of Present Illness 81 yo F with PMH HTN, cardiomyopathy, HLD, Metastatic breast CA s/p L mastectomy and axillary resection and pelvic CA currently undergoing treatment presented for elective replacement of ICD battery but was found to have abnormal labs and CXR. Patient has been experiencing chest congestion and cough for the past 2 weeks. She was recently found to have pneumonia in the ED and discharged home on PO antibiotics. Patient states she has been coughing but unable to produce any expectorant. Son at bedside and history obtained from son as well as patient. Patient denies any sick contact, fevers, chills, nausea, vomiting, chest pain, shortness of breath, wheezing, or abdominal issues. When informed about low white count, states it is secondary to the medication she has been taking. 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 Patient was evaluated and found to have a pleural effusion of likely malignant source and patient was appropriately drained per thoracentesis. Pulmonology and cardiology were also involved in patient's medications were slightly adjusted and although a Pleurx catheter was discussed, it was determined that the patient should follow-up in outpatient setting without catheter for now. During this time cardiology was also scheduled to change patient's pacemaker battery, however upon speaking with patient's own oncologist, cardiology determined they would change on an outpatient basis and oncology would like to try new medication in the outpatient setting as well. Patient's pleural effusions are smaller, however patient still required oxygen and will likely need oxygen for the foreseeable future. Lasix was also attempted, but due to the nature of the effusion, it was of little help and only resulted in worsening patient's renal function, which improved after lasix DC. Patient will be discharged on 4 L of nasal cannula oxygen and with a small dose of Coreg. Patient's blood pressure was low and lisinopril will not be prescribed at discharge for now, to follow-up with her gyroscopic instrument mechanic. During this encounter patient and patient's family was also given option of hospice which they declined at this time. Discharge diagnosis Left-sided pleural effusions, likely malignant Leukopenia Metastatic breast cancer Pelvic metastases Anemia of chronic disease Acute kidney injury Cardiomyopathy, congestive heart failure, acute on chronic ejection fraction 45% , Home Meds Active Scripts Carvedilol* (Carvedilol*) 3.125 Mg Tablet, 3.125 MG PO BID for 30 Days, #60 TAB Prov:DIMA COVARRUBIAS 02/09/17 Albuterol Sulfate* (Proair HFA*) 8.5 Gm Hfa.aer.ad, 2 PUFF INH Q4 for COUGH, #1 INHALER Prov:DIMA CUEVAS MD 01/06/17 Reported Medications Aspirin (Low Dose Aspirin) 81 Mg Tablet., 81 MG PO DAILY, #30 TAB 01/06/17 Palbociclib (Ibrance) 100 Mg Capsule, 100 MG PO DAILY, CAP 01/03/17 Pantoprazole* (Protonix*) 40 Mg Tablet., 40 MG PO DAILY, TAB 09/16/14 Atorvastatin Calcium* (Atorvastatin Calcium*) 20 Mg Tablet, 20 MG PO HS, TAB 05/07/14 Follow-up Plan 1. Follow up with your oncologist and gyroscopic instrument mechanic as soon as possible 2. follow up with Dr. Blevins for further pulmonary issues 3. Take medications as directed. Primary Care Provider Not On Staff Doctor Time spent on discharge: > 30 minutes Pending Labs Laboratory Tests Test 02/09/17 07:21 Sodium Level 134mmol/L (135-144) Potassium Level 3.7mmol/L (3.5-5.1) Chloride Level 96mmol/L (97-110) Carbon Dioxide Level 31mmol/L (21-31) Anion Gap 11 (8-16) Blood Urea Nitrogen 25mg/dl (7-20) Creatinine 1.23mg/dl (0.44-1.00) Glucose Level 114mg/dl (70-220) Calcium Level 9.0mg/dl (8.4-10.2) Phosphorus Level 3.7mg/dl (2.5-4.9) Magnesium Level 2.2mg/dl (1.7-2.5) DIMA COVARRUBIAS Feb 09, 2017 14:30
== END 2017-02-09 18:25 | disposition home or self-care (01) | DRG 193 ==
LOC: SDS 10:16 → CCL 10:16 → MS4 13:15
PROVIDERS: ADMIT Internal Medicine; ATTEND Internal Medicine
PROC: 0W9B3ZZ Drainage of Left Pleural Cavity, Percutaneous Approach (ICD-10-PCS; principal; 2017-02-01)
DX: J18.9 Pneumonia, unspecified organism (principal); I50.23 Acute on chronic systolic (congestive) heart failure; N17.9 Acute kidney failure, unspecified; J91.0 Malignant pleural effusion; C79.51 Secondary malignant neoplasm of bone; I42.9 Cardiomyopathy, unspecified; I11.0 Hypertensive heart disease with heart failure; C50.912 Malignant neoplasm of unspecified site of left female breast; D63.8 Anemia in other chronic diseases classified elsewhere; J98.11 Atelectasis; Z95.810 Presence of automatic (implantable) cardiac defibrillator; D72.819 Decreased white blood cell count, unspecified; E78.5 Hyperlipidemia, unspecified; Z90.12 Acquired absence of left breast and nipple; I25.10 Atherosclerotic heart disease of native coronary artery without angina pectoris
CPT/HCPCS: 32555; 36600; 71010; 71020; 71250; 76775; 80048; 80053; 80069; 82803; 82945; 83615; 83735; 83880; 84100; 84155; 84157; 85025; 85610; 85730; 87070; 87102; 87116; 89051; 93005; 94640; 94664; J1940; J2543; J3370; J3475; J7040; J7050; P9047

== ENCOUNTER 2017-02-12 07:00 | Inpatient (IN) | payer OTHER ==
[~2017-02-12] VITALS: Ht 157.5 cm; Wt 58.4 kg
[~2017-02-12 07:00] MED LIST changes: -AZIT500T3 PO; -CARV12.579 PO; +CARV3.1260 PO; -IBUP-1542 PO; -SUCR1TAB56 PO
[2017-02-12] MEDS ORDERED: ONDANSETRON 4 MG INJ IV STA ×2 (07:05→08:09)
[2017-02-12] MEDS ORDERED: morphine 2 MG INJ IV STA (07:05)
--- NOTE | 2017-02-12 07:18 | ERA ---
ER Documentation Chief Complaint Date/Time DATE: 02/12/17 TIME: 07:15 Chief Complaint SOB WITH CP SINCETHIS AM HPI 81-year-old female with a history of metastatic breast cancer with recent admission for pleural effusions and shortness of breath presenting to the ER by ambulance with recurrent shortness of breath and chest pain. She states her chest pain is in the middle of her chest, sharp and pressure-like, constant, nonradiating, 9 out of 10. She has associated shortness of breath. She denies any fevers or chills. She does have a cough. She denies any associated sputum. She denies any abdominal pain, headache, dizziness, focal weakness or numbness. She does endorse some nausea but feels like she is unable to vomit. ROS All systems reviewed and are negative except as per history of present illness. Medications Home Meds Active Scripts Carvedilol* (Carvedilol*) 3.125 Mg Tablet, 3.125 MG PO BID for 30 Days, #60 TAB Prov:DIMA COVARRUBIAS 02/09/17 Albuterol Sulfate* (Proair HFA*) 8.5 Gm Hfa.aer.ad, 2 PUFF INH Q4 for COUGH, #1 INHALER Prov:DIMA CUEVAS MD 01/06/17 Reported Medications Aspirin (Low Dose Aspirin) 81 Mg Tablet., 81 MG PO DAILY, #30 TAB 01/06/17 Palbociclib (Ibrance) 100 Mg Capsule, 100 MG PO DAILY, CAP 01/03/17 Pantoprazole* (Protonix*) 40 Mg Tablet., 40 MG PO DAILY, TAB 09/16/14 Atorvastatin Calcium* (Atorvastatin Calcium*) 20 Mg Tablet, 20 MG PO HS, TAB 05/07/14 Allergies Allergies: Coded Allergies: No Known Allergies (Verified Allergy, Unknown, 01/31/17) PMhx/Soc History of Surgery: Yes (R BREAST CA) Anesthesia Reaction: No Hx Neurological Disorder: No Hx Respiratory Disorders: No Hx Cardiac Disorders: Yes (HTN) Hx Psychiatric Problems: No 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 Actively retching. Speaking in very short sentences Head: Atraumatic Eyes: Normal Conjunctiva ENT: Dry mucous membranes Neck: Full range of motion..~ No meningismus. JVD Resp: Clear to auscultation bilaterally Cardio: Left chest with pacemaker palpated. Tachycardic with regular rhythm, no murmurs. 2+ distal pulses Abd: Soft, non tender, non distended. Normal bowel sounds Skin: No petechiae or rashes Back: No midline or flank tenderness Ext: No cyanosis, or edema. No calf tenderness. Neur: Awake and alert, moving all extremities spontaneously Psych: Normal Mood and Affect Result Diagram: 02/14/1714 02/14/17 0714 Results 24 hrs Laboratory Tests Test 02/12/17 07:05 02/12/17 07:43 Blood Gas Specimen Source Blood arterial Arterial Blood Date Drawn 02/12/2017 7:56:14 AM Arterial Blood pH (Temp corrected) 7.384 Arterial Blood pCO2 (Temp correct) 49.2mmhg Arterial Blood pO2 (Temp corrected) 72.9mmHG Arterial Blood HCO3 28.7mmol/L Arterial Blood Base Excess 3.0mmol/L Arterial Blood Oxygen Saturation 93.8mmHG Samm Test ACCEPTAB Arterial Blood Gas Puncture Site LB Arterial Blood Carboxyhemoglobin 0.3% Arterial Blood Methemoglobin 0% Blood Gas A-a O2 Differential 61.4mmHg Oxyhemoglobin Percent 93.5% Total Hemoglobin 11.4g/dl Blood Gas Temperature 37.0C Blood Gas Modality NASAL CANNULA FiO2 27.0% Blood Gas Notified Whom MDA Blood Gas Notified Time 02/12/2017 8:00:50 AM White Blood Count 3.510^3/ul Red Blood Count 3.1410^6/ul Hemoglobin 10.3g/dl Hematocrit 30.0% Mean Corpuscular Volume 95.5fl Mean Corpuscular Hemoglobin 32.8pg Mean Corpuscular Hemoglobin Concent 34.3g/dl Red Cell Distribution Width 13.1% Platelet Count 89462^3/UL Mean Platelet Volume 11.1fl Neutrophils % 72.8% Lymphocytes % 11.6% Monocytes % 11.3% Eosinophils % 2.0% Basophils % 1.7% Nucleated Red Blood Cells % 0.0/100WBC Neutrophils # 2.510^3/ul Lymphocytes # 0.410^3/ul Monocytes # 0.410^3/ul Eosinophils # 0.110^3/ul Basophils # 0.110^3/ul Nucleated Red Blood Cells # 0.010^3/ul Prothrombin Time 13.1Sec Prothrombin Time Ratio 1.0 INR International Normalized Ratio 0.99 Sodium Level 132mmol/L Potassium Level 4.0mmol/L Chloride Level 92mmol/L Carbon Dioxide Level 29mmol/L Anion Gap 15 Blood Urea Nitrogen 19mg/dl Creatinine 0.96mg/dl Glucose Level 142mg/dl Calcium Level 8.6mg/dl Total Bilirubin 0.2mg/dl Direct Bilirubin 0.00mg/dl Indirect Bilirubin 0.2mg/dl Aspartate Amino Transf (AST/SGOT) 38IU/L Alanine Aminotransferase (ALT/SGPT) 42IU/L Alkaline Phosphatase 58IU/L Troponin I < 0.012ng/ml B-Type Natriuretic Peptide 282PG/ML Total Protein 6.8g/dl Albumin 4.0g/dl Globulin 2.80g/dl Albumin/Globulin Ratio 1.42 Current Medications Medications (Trade) Dose Ordered Sig/Zahra Route PRN Reason Start Time Stop Time Status Last Admin Dose Admin Morphine Sulfate (morphine) 2 mg ONCE STAT IV 02/12/17 07:05 02/12/17 07:11 DC 02/12/17 07:46 Ondansetron HCl (Zofran Inj) 4 mg ONCE STAT IV 02/12/17 07:05 02/12/17 07:11 DC 02/12/17 07:46 Ondansetron HCl (Zofran Inj) 4 mg ONCE STAT IV 02/12/17 08:09 02/12/17 08:10 DC 02/12/17 08:15 Metoclopramide HCl (Reglan) 10 mg STK-MED ONCE .ROUTE 02/12/17 08:52 02/12/17 08:53 DC Metoclopramide HCl (Reglan) 10 mg ONCE ONCE IV 02/12/17 09:00 02/12/17 09:01 DC 02/12/17 09:00 Procedures/MDM EMERGENT LABS AND DIAGNOSTIC STUDIES: Lab Results above were reviewed and interpreted by me. CBC shows leukopenia, anemia CMP shows mild hyponatremia, otherwise unremarkable Trop within normal limits BNP within normal limits 12-lead EKG was interpreted by Rocio Beaulieu MD: V paced rhythm at 96 beats per minute No acute ST or T wave changes suggestive of acute ischemia or STEMI. Radiology Results as interpreted by Radiology below were reviewed by Naif Beaulieu MD: Chest x-ray: IMPRESSION: Compared to chest radiograph from 5 days prior, worsening pleural effusions and mild to moderate interstitial pulmonary edema. There is associated bibasilar atelectasis. However, superimposed infection to be determined clinically. RPTAT: EE Physician Wilber Date Time Electronically viewed and signed by Physician Wilber on 02/12/2017 07 :35 Initial Nursing notes reviewed. Previous Medical Records requested via the Electronic Health Record. EMERGENCY DEPARTMENT COURSE / MEDICAL DECISION MAKING: Patient is presenting with worsening shortness of breath. Vitals were notable for hypoxia on room air, tachycardia and tachypnea. However the patient was afebrile. I considered sepsis but my suspicion for this was low. Initially sepsis workup was not initiated. Chest x-ray did showed evidence of increasing pleural effusions with some pulmonary edema. Her ABG showed hypoxemia with mild hypercapnia. I suspect her symptoms are more likely secondary to the increasing pleural effusion size rather than pneumonia. I reviewed the patient' s previous records and it seems that a Pleur-evac placement was discussed with the patient and her family and at that time they had refused. However it seems the family and the patient are open to this now as they realize the patient cannot live like this comfortably. Patient required multiple doses of antiemetics. However acute surgical abdomen is less likely at this time. I also considered acute coronary syndrome and pulmonary embolism, which remain on the differential, but are less likely as well. Patient will require admission for thoracentesis and possible Pleur-evac. I will defer any further workup for acute coronary syndrome or pulmonary embolism to the inpatient team. Critical Care Time: 45 minutes Treatments/Evaluations: Close monitoring and treatment of unstable vital signs, cardiorespiratory, and neurologic status, while maintaining tight balance of fluid, respiratory, and cardiac interventions. This time includes discussing the case with the patient and the patients family. This time does not include all procedures stated elsewhere in this record. This time also includes reviewing old records, labs and radiological studies. This time includes examining and re-examining the patient. Additionally, this time also includes arranging care with admitting and consulting physicians. Departure Diagnosis: Primary Impression: Acute respiratory failure Qualified Code: J96.01 - Acute respiratory failure with hypoxia Additional Impressions: Chest pain Qualified Code: R07.89 - Other chest pain Pleural effusion Pulmonary edema Qualified Code: J81.0 - Acute pulmonary edema Nausea Condition: Serious NIGEL BEAULIEU MD Feb 12, 2017 07:18
--- NOTE | 2017-02-12 07:36 | RADRPT ---
PROCEDURE: XR Chest. CLINICAL INDICATION: Chest pain TECHNIQUE: Single frontal view of the chest was obtained COMPARISON: 02/07/2017 FINDINGS: Decreased lung volumes. Bilateral moderate pleural effusions and bibasilar opacities. Evaluation of the left lower lung zone is obscured by the left AICD. Stable top normal cardiac silhouette. Left AICD with tips projecting over the right atrial appendage , right ventricle and great cardiac vein. Large aortic arch suggestive of chronic systemic hypertens ion. Mild to moderate interstitial pulmonary edema. Regional skeleton is intact. IMPRESSION: Compared to chest radiograph from 5 days prior, worsening pleural effusions and mild to moderate int erstitial pulmonary edema. There is associated bibasilar atelectasis. However, superimposed infectio n to be determined clinically. RPTAT: EE Physician Wilber Date Time Electronically viewed and signed by Eduarda Larose Physician on 02/12/2017 07:35 /
[2017-02-12] MEDS ORDERED: METOCLOPRAMIDE 10 MG INJ ONE (08:52)
[2017-02-12] MEDS ORDERED: METOCLOPRAMIDE 10 MG INJ IV ONE (09:00)
[2017-02-12] MEDS ORDERED: ONDANSETRON 4 MG INJ IV PRN (09:30)
[2017-02-12] MEDS ORDERED: ACETAMINOPHEN 325 MG TAB PO PRN ×2 (09:30→14:00)
--- NOTE | 2017-02-12 13:57 | HP ---
Date/Time of Note Date/Time of Note DATE: 02/12/17 TIME: 13:50 Assessment/Plan VTE Prophylaxis VTE Prophylaxis Intervention: SCD's Lines/Catheters IV C[facility]ter [facility]from [facility] Saline Lock Assessment/Plan Chief Complaint/Hosp Course Patient is a 81-year-old female with past medical history of metastatic breast cancer who presents for worsening malignant pleural effusions. Recently discharged 3 days ago. bilateral pleural effusions, likely malignant pulmonary edema Leukopenia Metastatic breast cancer Pelvic metastases Anemia of chronic disease Acute kidney injury Cardiomyopathy, congestive heart failure, acute on chronic ejection fraction 45% , -Cardiology and pulmonology consulted. pleurex catheter to be inserted -recommendations per cardiology for ?lasix, although was not very effective during previous admission -continue home meds -palliative care, Dr. Anderson consulted given patient's cancer hx -patient has no SOB when seen in the ED, sat 90% on 2-4L DISPO: likely DC tomorrow if stable for outpatient follow-up once home health with drain care arranged vs palliative. Problems: HPI/ROS Admit Date/Time Admit Date/Time Hx of Present Illness Patient is a 81-year-old female with past medical history of metastatic breast cancer with metastases to the left hip bones presents to [facility] approximately 3 days after she was discharged. Patient had an extended stay during the previous admission and had multiple workup done and was determined to have a malignant pleural effusion which was drained, and was sent outpatient for follow-up with possible outpatient Pleurx catheter. Patient also was discharged after refusing hospice care and stating she will change her medications with her oncologist who visited her during the previous admission. Cardiology did not place a battery at that time, given her questionable prognosis,. Patient was brought in by family member stating that she did not tolerate her outpatient 4 L nasal cannula and was admitted for worsening pleural effusion. Patient stated that she had shortness of breath and chest pain, however denies chest pain currently and has only mild shortness of breath. Patient denies any nausea vomiting headache or abdominal pain. PMH/Family/Social Past Surgical History Past Surgical Hx: other Social History Smoking Status: Never smoker Exam/Review of Systems Vital Signs Vitals Vital Signs Date Time Temp Pulse Resp B/P Pulse Ox O2 Delivery O2 Flow Rate FiO2 02/12/17 11:09 88 17 110/61 95 Nasal Cannula 2.0 02/12/17 07:04 97.7 Exam Exam Physical exam General: Patient is laying in bed and answers questions appropriately, no respiratory distress on NC Mentation: Patient is alert and oriented 4, Head: Normocephalic atraumatic Eyes: EOMI, pupils reactive to light Neck: Supple, nontender, midline Respiratory: Clear to auscultation bilaterally Cardiovascular: regular rate, no obvious murmurs Gastrointestinal: non-tender to palpation, bowel sounds heard. Neurological: Moves all extremities spontaneously Skin: No new skin lesions Labs Result Diagram: 02/12/17 0743 02/12/17 07 Medications Medications Current Medications Ondansetron HCl (Zofran Inj) 4 mg Q6H PRN IV NAUSEA AND/OR VOMITING; Start at 14:00 Acetaminophen (Tylenol Tab) 650 mg Q6H PRN PO PAIN LEVEL 1-3 OR FEVER; Start 02/12/17 at 14:00 Oxycodone/ Acetaminophen (Percocet (5/ 325)) 1 tab Q6H PRN PO SEVERE PAIN LEVEL 7-10; Start 02/12/17 at 14:00 Bisacodyl (Dulcolax) 5 mg DAILY PRN PO CONSTIPATION; Start 02/12/17 at 14:00 Pantoprazole (Protonix Tab) 40 mg DAILY@06 PO ; Start 02/13/17 at 06:00 Aspirin (Halfprin) 81 mg DAILY PO ; Start 02/13/17 at 09:00; Status UNV Atorvastatin Calcium (Lipitor) 20 mg HS PO ; Start 02/12/17 at 21:00; Status UNV Carvedilol (Coreg) 3.125 mg BID PO ; Start 02/12/17 at 21:00; Status UNV Pantoprazole (Protonix Tab) 40 mg DAILY PO ; Start 02/13/17 at 09:00; Status UNV DIMA COVARRUBIAS Feb 12, 2017 13:57
[2017-02-12] MEDS ORDERED: ALBUTEROL/IPRATROPIUM (NEB) 3 ML AMP HHN PRN (14:00)
[2017-02-12] MEDS ORDERED: NACL 0.9% 3 ML SYG IV SCH (14:00)
[2017-02-12] MEDS ORDERED: BISACODYL (EC) 5 MG TAB PO PRN (14:00)
[2017-02-12] MEDS: ALBUTEROL/IPRATROPIUM (NEB) 3 ML AMP HHN SCH ×2 (14:13→22:11)
[2017-02-12] MEDS: ONDANSETRON 4 MG INJ IV PRN ×2 (14:46→21:24)
[2017-02-12] MEDS: PANTOPRAZOLE (EC) 40 MG TAB PO SCH (14:46)
[2017-02-12 17:10] VITALS: Ht 157.5 cm; Wt 58.4 kg
[2017-02-12 20:09] VITALS: PULSE 103
[2017-02-12 20:13] VITALS: BP 120/58; RESP 18
[2017-02-12] MEDS: ATORVASTATIN 20 MG TAB PO SCH (21:20)
[2017-02-13] VITALS (18 sets, daily range): BP systolic 82–117; BP diastolic 51–65; PULSE 95–120; RESP 17–31
[2017-02-13] MEDS: PANTOPRAZOLE (EC) 40 MG TAB PO SCH ×2 (05:57→09:00)
--- NOTE | 2017-02-13 07:12 | CONS ---
DATE OF ADMISSION: 02/12/2017 DATE OF CONSULTATION: 02/12/2017 CARDIOLOGY CONSULTATION REFERRING PHYSICIAN: REASON FOR EVALUATION: ICD, CHF. HISTORY OF PRESENT ILLNESS: Ms. Bennett is an 81-year-old woman known to me from recent ad missions. She has a history of cardiomyopathy. She has a history of ICD with ICD generator nearing end of life. The patient was recently in the hospital with pleural effusion, now she has reaccumul ation of pleural effusion, likely to malignancy, which will probably require a tube placement for dr alvarez. The patient is hemodynamically stable now. I think now it is better to hold off on extensi ve diuresis and remove the fluid. We will continue to address the ICD as the patient's prognosis be comes more clear. PAST MEDICAL HISTORY: 1. Hypertension. 2. Cardiomyopathy. 3. History of BIV ICD. 4. History of battery nearing end of life. 5. History of pleural effusion, likely malignant. ALLERGIES: NONE KNOWN. SOCIAL HISTORY: Patient used to smoke, does not drink, does not use drugs. FAMILY HISTORY: Negative for sudden cardiac , premature coronary artery disease. MEDICATIONS: Medications have been reviewed. REVIEW OF SYSTEMS: CONSTITUTIONAL: No fevers, no chills, now with increased shortness of breath. HEENT: No changes in vision or hearing. CARDIAC: No chest pain reported now. RESPIRATORY: Significant for shortness of breath. GASTROINTESTINAL: No nausea, vomiting, diarrhea, constipation. GENITOURINARY: No dysuria, hematuria. NEUROLOGIC: No focal neurologic deficits. HEMATOLOGIC: No easy bruising. PSYCHIATRIC: No known history of psychiatric illness. PHYSICAL EXAMINATION: VITAL SIGNS: Blood pressure 135/65, heart rate is in the 90s. She has BiV pacing. GENERAL: She is a well-nourished woman in no acute distress, alert and oriented x3, aware of her co ndition. HEENT: Head is normocephalic, atraumatic. Eyes anicteric. NECK: Supple. JVD 7 to 8 cm. There is no lymphadenopathy, no thyromegaly. HEART: Regular with soft holosystolic murmur mid chest, . PMI is nondisplaced. I do not hear an S3. LUNGS: Coarse at base with wheezing. ABDOMEN: Distended, bowel sounds are present. EXTREMITIES: some edema. LABORATORY DATA: Troponin is negative at 0.01. ECG read by me shows sinus rhythm with BiV pacing. ASSESSMENT AND PLAN: 1. Shortness of breath, likely multifactorial. Pleural effusion is most likely cause. Continue to monitor now. Patient does have some increased fluid status, but she will probably need drainage of the pleural effusion for now. I did note , but just close followup. 2. Cardiomyopathy. Continue to optimize medical therapy as noted. 3. ICD nearing end of life. We will address pending overall prognosis. We will hold off on electi ve surgery now as long as tolerated. 4. Coronary artery disease, no chest pain now. Continue to monitor closely. I would like to thank for referring this patient for my evaluation. Dictated By: STEFANY BOYCE MD ML/NTS Conf#: [id number] DID#: [id number] CC: AUBRIE MINA;*EndCC*
[2017-02-13] MEDS: ALBUTEROL/IPRATROPIUM (NEB) 3 ML AMP HHN SCH ×3 (08:39→22:05)
[2017-02-13] MEDS: ASPIRIN (EC) 81 MG TAB PO SCH (09:00)
[2017-02-13] MEDS ORDERED: FUROSEMIDE 40 MG INJ IV ONE (10:00)
--- NOTE | 2017-02-13 10:31 | PN ---
Date/Time of Note Date/Time of Note DATE: 02/13/17 TIME: 10:31 Assessment/Plan VTE Prophylaxis VTE Prophylaxis Intervention: SCD's Lines/Catheters IV Catheter Type (from Nrsg): Saline Lock Assessment/Plan Assessment/Plan 1. Bilateral pleural effusions, likely malignant - Will give one dose of Lasix IV in anticipation for pleurx cath placement today - Continue on NC and wean as tolerating to keep saturations >90% - Pulmonology on board and recommendations appreciated. 2. Leukopenia - stable, trending upward 3. Cardiomyopathy, congestive heart failure, acute on chronic ejection fraction 45% - Cardiology on board and recommendations appreciated - Will need ICD battery changed once SOB stable 4. h/o Metastatic breast cancer with pelvic metastases - Followed by Dr. Tay, oncology 5. Anemia of chronic disease - currently stable - will continue monitoring 6. Acute kidney injury - Cr slightly elevated. Will continue to monitor 7. Disposition - Continue monitoring in Telemetry Subjective 24 Hr Interval Summary Free Text/Dictation Patient seen this am and was c/o SOB. Given dose of Lasix and was saturating > 90% on NC. Plans for Pleurx cath placement today once materials obtained by IR. No acute overnight events. Exam/Review of Systems Vital Signs Vitals Vital Signs Date Time Temp Pulse Resp B/P Pulse Ox O2 Delivery O2 Flow Rate FiO2 02/13/17 09:03 101 02/13/17 08:44 93 6.0 02/13/17 08:43 23 Nasal Cannula 02/13/17 07:38 98.0 117/65 Intake and Output 02/12/17 02/12/17 02/13/17 14:59 22:59 06:59 Intake Total 520 ml 60 ml Output Total 450 ml Balance 520 ml -390 ml Exam Constitutional: distress (respiratory) Psych: nl mood/affect Head: atraumatic, normocephalic Eyes: EOMI, PERRL Neck: non-tender, supple Respiratory: diminished breath sounds (bases), No crackles/rales, No wheezing Cardiovascular: irregular rhythm (tachycardia), No edema Gastrointestinal: non-tender, soft, No distended, No rebound or guarding Musculoskeletal: nl extremities to inspection Extremities: normal pulses Neurological: [employer] II-XII intact, nl mental status Skin: nl turgor Lymph: nl lymph nodes Results Result Diagram: 02/13/17 0645 02/13/17 0645 Results 24 hrs Laboratory Tests Test 02/13/17 06:45 White Blood Count 3.4 L Red Blood Count 3.20 L Hemoglobin 10.4 L Hematocrit 30.9 L Mean Corpuscular Volume 96.6 Mean Corpuscular Hemoglobin 32.5 Mean Corpuscular Hemoglobin Concent 33.7 Red Cell Distribution Width 13.1 Platelet Count 215 Mean Platelet Volume 10.9 H Neutrophils % 68.3 Lymphocytes % 9.0 L Monocytes % 16.9 H Eosinophils % 2.9 Basophils % 2.0 Nucleated Red Blood Cells % 0.0 Neutrophils # 2.3 Lymphocytes # 0.3 L Monocytes # 0.6 Eosinophils # 0.1 Basophils # 0.1 Nucleated Red Blood Cells # 0.0 Sodium Level 131 L Potassium Level 4.1 Chloride Level 93 L Carbon Dioxide Level 30 Anion Gap 12 Blood Urea Nitrogen 20 Creatinine 1.02 H Glucose Level 114 Calcium Level 8.8 Total Bilirubin 0.2 Direct Bilirubin 0.00 Indirect Bilirubin 0.2 Aspartate Amino Transf (AST/SGOT) 37 Alanine Aminotransferase (ALT/SGPT) 41 Alkaline Phosphatase 54 Total Protein 6.7 Albumin 3.8 Globulin 2.90 Albumin/Globulin Ratio 1.31 Medications Medications Current Medications Ondansetron HCl (Zofran Inj) 4 mg Q6H PRN IV NAUSEA AND/OR VOMITING Last administered on 02/12/17 21:24; Admin Dose 4 MG; Start 02/12/17 at 14:00 Acetaminophen (Tylenol Tab) 650 mg Q6H PRN PO PAIN LEVEL 1-3 OR FEVER; Start 02/12/17 at 14:00 Oxycodone/ Acetaminophen (Percocet (5/ 325)) 1 tab Q6H PRN PO SEVERE PAIN LEVEL 7-10; Start 02/12/17 at 14:00 Bisacodyl (Dulcolax) 5 mg DAILY PRN PO CONSTIPATION; Start 02/12/17 at 14:00 Pantoprazole (Protonix Tab) 40 mg DAILY@06 PO Last administered on 02/13/17 05:57; Admin Dose 40 MG; Start 02/13/17 at 06:00 Aspirin (Halfprin) 81 mg DAILY PO ; Start 02/13/17 at 09:00 Atorvastatin Calcium (Lipitor) 20 mg HS PO Last administered on 02/12/17 21: 20; Admin Dose 20 MG; Start 02/12/17 at 21:00 Carvedilol (Coreg) 3.125 mg BID PO Last administered on 02/12/17t 21:21; Admin Dose 3.125 MG; Start 02/12/17 at 21:00 Pantoprazole (Protonix Tab) 40 mg DAILY PO ; Start 02/12/17 at 15:00 GARY CROSS MD Feb 13, 2017 10:31
--- NOTE | 2017-02-13 11:30 | CONS ---
Date/Time of Note Date/Time of Note DATE: 02/13/17 TIME: 11:26 Assessment/Plan Assessment/Plan Chief Complaint/Hosp Course IMP: 1.CHF-systolic acute on chronic 2. cardiomyopathy 3.ICD near EOL 4.Pleural effusion 5.Leukopenia 6.Met Breast CA 7. Hyponatremia Recc: -Tele -Lasix diuresis -Continue BB/statin/ASA -Start ACEI afterload reuction -ICD generator change by DR philip when stable Problems: Consultation Date/Type/Reason Admit Date/Time Feb 12, 2017 at 09:06 Initial Consult Date 02/12/2017 Type of Consultation: cardiology Reason for Consultation CHF Referring Provider: GARY CROSS MD Exam/Review of Systems Vital Signs Vitals Vital Signs Date Time Temp Pulse Resp B/P Pulse Ox O2 Delivery O2 Flow Rate FiO2 02/13/17 11:24 98.6 106 19 109/64 90 02/13/17 08:44 6.0 02/13/17 08:43 Nasal Cannula Intake and Output 02/12/17 02/12/17 02/13/17 15:00 23:00 07:00 Intake Total 520 ml 60 ml Output Total 450 ml Balance 520 ml -390 ml Exam Review of Systems: CONSTITUTIONAL: No fevers, chills. PULMONARY: mod sob CARDIOVASCULAR: No chest pain/palpitations GASTROINTESTINAL: No nausea/vomiting. GENITOURINARY: No hematuria/dysuria. MUSCULOSKELETAL: No myagias/arthalgias. PSYCHIATRIC: The patient denies depression. NEUROLOGIC: lethargic Constitutional: alert Psych: no complaints Head: normocephalic ENMT: mucosa pink and moist Neck: jvd (9-10 cm water), supple Respiratory: diminished breath sounds (at bases/B) Cardiovascular: regular rate and rhythm Gastrointestinal: non-tender, soft Musculoskeletal: muscle tone (normal) Extremities: edema (none) Neurological: other (No focal deficits) Results Result Diagram: 02/13/17 0645 02/13/17 0645 Results 24 hrs Laboratory Tests Test 02/13/17 06:45 White Blood Count 3.4 L Red Blood Count 3.20 L Hemoglobin 10.4 L Hematocrit 30.9 L Mean Corpuscular Volume 96.6 Mean Corpuscular Hemoglobin 32.5 Mean Corpuscular Hemoglobin Concent 33.7 Red Cell Distribution Width 13.1 Platelet Count 215 Mean Platelet Volume 10.9 H Neutrophils % 68.3 Lymphocytes % 9.0 L Monocytes % 16.9 H Eosinophils % 2.9 Basophils % 2.0 Nucleated Red Blood Cells % 0.0 Neutrophils # 2.3 Lymphocytes # 0.3 L Monocytes # 0.6 Eosinophils # 0.1 Basophils # 0.1 Nucleated Red Blood Cells # 0.0 Sodium Level 131 L Potassium Level 4.1 Chloride Level 93 L Carbon Dioxide Level 30 Anion Gap 12 Blood Urea Nitrogen 20 Creatinine 1.02 H Glucose Level 114 Calcium Level 8.8 Total Bilirubin 0.2 Direct Bilirubin 0.00 Indirect Bilirubin 0.2 Aspartate Amino Transf (AST/SGOT) 37 Alanine Aminotransferase (ALT/SGPT) 41 Alkaline Phosphatase 54 Total Protein 6.7 Albumin 3.8 Globulin 2.90 Albumin/Globulin Ratio 1.31 Medications Medications Current Medications Ondansetron HCl (Zofran Inj) 4 mg Q6H PRN IV NAUSEA AND/OR VOMITING Last administered on 02/12/17 21:24; Admin Dose 4 MG; Start 02/12/17 at 14:00 Acetaminophen (Tylenol Tab) 650 mg Q6H PRN PO PAIN LEVEL 1-3 OR FEVER; Start 02/12/17 at 14:00 Oxycodone/ Acetaminophen (Percocet (5/ 325)) 1 tab Q6H PRN PO SEVERE PAIN LEVEL 7-10; Start 02/12/17 at 14:00 Bisacodyl (Dulcolax) 5 mg DAILY PRN PO CONSTIPATION; Start 02/12/17 at 14:00 Pantoprazole (Protonix Tab) 40 mg DAILY@06 PO Last administered on 02/13/17 05:57; Admin Dose 40 MG; Start 02/13/17 at 06:00 Aspirin (Halfprin) 81 mg DAILY PO ; Start 02/13/17 at 09:00 Atorvastatin Calcium (Lipitor) 20 mg HS PO Last administered on 02/12/17 21: 20; Admin Dose 20 MG; Start 02/12/17 at 21:00 Carvedilol (Coreg) 3.125 mg BID PO Last administered on 02/12/17 21:21; Admin Dose 3.125 MG; Start 02/12/17 at 21:00 Pantoprazole (Protonix Tab) 40 mg DAILY PO ; Start 02/12/17 at 15:00 ROXIE VELARDE Feb 13, 2017 11:30
--- NOTE | 2017-02-13 11:31 | CONS ---
Date/Time of Note Date/Time of Note DATE: 02/13/17 TIME: 11:28 Assessment/Plan Assessment/Plan Additional Assessment/Plan Chest x-ray was reviewed from yesterday which is showing right pleural effusion. Assessment and recommendations; 1. Patient with history of widely metastatic breast cancer admitted again for recurrent right pleural effusion. Awaiting Pleurx catheter placement today. 2. History of cardiac arrhythmia. 3. Mild anemia. Continue current supportive care. Overall prognosis remains poor. Consultation Date/Type/Reason Admit Date/Time Feb 12, 2017 at 09:06 Initial Consult Date Type of Consultation: Pulmonary 24 HR Interval Summary Free Text/Dictation Patient is complaining of shortness of breath. Scheduled for right Pleurx catheter placement today. Denies any chest pain. Exam; elderly woman, awake, currently in no distress. Appears anxious. Exam/Review of Systems Vital Signs Vitals Vital Signs Date Time Temp Pulse Resp B/P Pulse Ox O2 Delivery O2 Flow Rate FiO2 02/13/17 11:24 98.6 106 19 109/64 90 02/13/17 08:44 6.0 02/13/17 08:43 Nasal Cannula Intake and Output 02/12/17 02/12/17 02/13/17 15:00 23:00 07:00 Intake Total 520 ml 60 ml Output Total 450 ml Balance 520 ml -390 ml Exam HEENT exam; supple neck, no JVD. No lymphadenopathy. Midline trachea. No thyromegaly. Bilateral intraocular lens implants are present. Patient is edentulous. She wears dentures. Chest exam; diminished breath on lung bases bilaterally. S1-S2 audible, no murmurs. Pacemaker in left chest wall. Abdomen exam; soft, nontender. No organomegaly. Bowel sounds audible. [employer] exam; no focal deficit. Results Result Diagram: 02/13/17 0645 02/13/17 0645 Results 24 hrs Laboratory Tests Test 02/13/17 06:45 White Blood Count 3.4 L Red Blood Count 3.20 L Hemoglobin 10.4 L Hematocrit 30.9 L Mean Corpuscular Volume 96.6 Mean Corpuscular Hemoglobin 32.5 Mean Corpuscular Hemoglobin Concent 33.7 Red Cell Distribution Width 13.1 Platelet Count 215 Mean Platelet Volume 10.9 H Neutrophils % 68.3 Lymphocytes % 9.0 L Monocytes % 16.9 H Eosinophils % 2.9 Basophils % 2.0 Nucleated Red Blood Cells % 0.0 Neutrophils # 2.3 Lymphocytes # 0.3 L Monocytes # 0.6 Eosinophils # 0.1 Basophils # 0.1 Nucleated Red Blood Cells # 0.0 Sodium Level 131 L Potassium Level 4.1 Chloride Level 93 L Carbon Dioxide Level 30 Anion Gap 12 Blood Urea Nitrogen 20 Creatinine 1.02 H Glucose Level 114 Calcium Level 8.8 Total Bilirubin 0.2 Direct Bilirubin 0.00 Indirect Bilirubin 0.2 Aspartate Amino Transf (AST/SGOT) 37 Alanine Aminotransferase (ALT/SGPT) 41 Alkaline Phosphatase 54 Total Protein 6.7 Albumin 3.8 Globulin 2.90 Albumin/Globulin Ratio 1.31 Medications Medications Current Medications Ondansetron HCl (Zofran Inj) 4 mg Q6H PRN IV NAUSEA AND/OR VOMITING Last administered on 02/12/17 21:24; Admin Dose 4 MG; Start 02/12/17 at 14:00 Acetaminophen (Tylenol Tab) 650 mg Q6H PRN PO PAIN LEVEL 1-3 OR FEVER; Start 02/12/17 at 14:00 Oxycodone/ Acetaminophen (Percocet (5/ 325)) 1 tab Q6H PRN PO SEVERE PAIN LEVEL 7-10; Start 02/12/17 at 14:00 Bisacodyl (Dulcolax) 5 mg DAILY PRN PO CONSTIPATION; Start 02/12/17 at 14:00 Pantoprazole (Protonix Tab) 40 mg DAILY@06 PO Last administered on 02/13/17 05:57; Admin Dose 40 MG; Start 02/13/17 at 06:00 Aspirin (Halfprin) 81 mg DAILY PO ; Start 02/13/17 at 09:00 Atorvastatin Calcium (Lipitor) 20 mg HS PO Last administered on 02/12/17 21: 20; Admin Dose 20 MG; Start 02/12/17 at 21:00 Carvedilol (Coreg) 3.125 mg BID PO Last administered on 02/12/17 21:21; Admin Dose 3.125 MG; Start 02/12/17 at 21:00 Pantoprazole (Protonix Tab) 40 mg DAILY PO ; Start 02/12/17 at 15:00 DAGOBERTO COA Feb 13, 2017 11:31
[2017-02-13] MEDS ORDERED: EPHEDrine SULFATE 50 MG/5 ML SYG ONE (14:36)
[2017-02-13] MEDS ORDERED: PHENYLephrine (100 MCG/ML) 5ML SYG ONE ×2 (14:36→16:28)
[2017-02-13] MEDS ORDERED: PROPOFOL 40 ML ONE (14:36)
[2017-02-13] MEDS ORDERED: FENTAnyl 50 MCG/ML VIAL ONE (14:36)
[2017-02-13] MEDS ORDERED: GLYCOPYRROLATE 0.4 MG INJ ONE (14:37)
[2017-02-13] MEDS ORDERED: LIDOCAINE 1% (MDV) 20 ML INJ ONE (15:08)
--- NOTE | 2017-02-13 16:14 | RADRPT ---
PROCEDURE: LEFT PLEURX CATHETER PLACEMENT CLINICAL INDICATION: Pleural effusion TECHNIQUE: MEDICATIONS: The procedure was performed under general anesthesia. TECHNIQUE/FINDINGS: Informed consent was obtained following careful explanations of the risks and be nefits of the procedure. Preliminary ultrasound was obtained and demonstrates a small to moderate pl eural effusion. Fluoroscopy time: 0.1 min Number of fluoroscopic images/sequences: 1 The patient was placed left sided decubitus position. The patients lower chest and upper abdomen w ere prepped and draped in the usual sterile fashion. Cap, mask, sterile gown, sterile gloves, large sterile sheath, hand hygiene with 2% chlorhexidine was utilized. 1% lidocaine was utilized. The pleural space was punctured with a micropuncture needle under direct ultrasound guidance and a g uide wire was advanced into the pleural effusion as confirmed by fluoroscopy. A recorded ultrasound imaging was obtained. The needle was exchanged for an introducer. A site in the patients anterior abdominal wall was selected and 1% lidocaine with epinephrine was a dministered to the skin. A small an incision was made. The catheter was then tunneled retrograde from the incision in the chest towards the puncture site i n the patients chest. A guidewire was advanced through the introducer in the patients chest and th e introducer was exchanged over the wire for a peel-away sheath, which was placed in the pleural spa ce. The catheter was advanced through the peel-away sheath and the sheath was removed. The tip of th e catheter was placed in the pleural space. Approximately 1000 cc of clear fluid were drained at the time of the procedure.. A photo spot image confirms proper positioning of the catheter tip in the p leural space. The catheter was sutured to the patient's chest with 2-0 Ethilon suture. The incision in the chest w as closed with a subcuticular 4-0 Vicryl suture. A sterile dressing was applied. The patient tolerated the procedure well COMPARISON: None FINDINGS: Pleural effusion. RPTAT: AA IMPRESSION: 1. Uncomplicated placement of a Pleurx catheter within a large pleural effusion.. 2. The catheter is ready for use. .Dandy Biswas MD, MD Date Time Electronically viewed and signed by .Dandy Biswas MD, on 02/13/2017 16:14 .S/
[2017-02-13] MEDS ORDERED: EPHEDrine SULFATE 50 MG/5 ML SYG IV PRN (16:30)
[2017-02-13] MEDS ORDERED: ONDANSETRON 4 MG INJ IV PRN (16:30)
[2017-02-13] MEDS: ONDANSETRON 4 MG INJ IV PRN (17:25)
[2017-02-13] MEDS: SOD CHLORIDE 0.9% 1,000 ML ONE ×2 (17:49→17:52)
[2017-02-13] MEDS: FUROSEMIDE 20 MG INJ IV SCH (18:00)
[2017-02-13] MEDS: ATORVASTATIN 20 MG TAB PO SCH (21:07)
[2017-02-14] VITALS (13 sets, daily range): BP systolic 88–106; BP diastolic 50–58; PULSE 100–119; RESP 17–21
[2017-02-14] MEDS: FUROSEMIDE 20 MG INJ IV SCH ×2 (05:47→18:02)
[2017-02-14] MEDS: PANTOPRAZOLE (EC) 40 MG TAB PO SCH (05:47)
[2017-02-14] MEDS: LISINOPRIL 5 MG TAB PO SCH (09:00)
[2017-02-14] MEDS: ASPIRIN (EC) 81 MG TAB PO SCH (09:06)
--- NOTE | 2017-02-14 09:29 | CONS ---
Date/Time of Note Date/Time of Note DATE: 02/14/17 TIME: 09:27 Assessment/Plan Assessment/Plan Additional Assessment/Plan 1.CHF-systolic acute on chronic - con't to keep euvolemic 2. cardiomyopathy - ischemia, improved EF with BIV pacing 3.ICD near EOL - will monitor for now 4.Pleural effusion - pulmonary/ oncology follows 5.Leukopenia 6.Met Breast CA 7. Hyponatremia Consultation Date/Type/Reason Admit Date/Time Feb 12, 2017 at 09:06 Initial Consult Date Type of Consultation: Pulmonary Referring Provider: GARY CROSS MD 24 HR Interval Summary Free Text/Dictation NO acute events - con't effusion Rx ROS: No fever, no chills, no nausea, no vomiting, no diarrhea/constipation No recent weight changes No chest pain, no PND, no orthopnea + SOB No dizziness, blurred vision No thirst, no heat or cold intolerance Exam/Review of Systems Vital Signs Vitals Vital Signs Date Time Temp Pulse Resp B/P Pulse Ox O2 Delivery O2 Flow Rate FiO2 02/14/17 08:18 103 02/14/17 07:11 97.9 20 93/53 98 02/14/17 03:01 4.5 02/14/17 01:10 Nasal Cannula Intake and Output 02/13/17 02/13/17 02/14/17 15:00 23:00 07:00 Intake Total 230 ml 400 ml Output Total 3100 ml 600 ml Balance -2870 ml -200 ml Exam General: WN/WD/NAD, AOx 3 HEENT: Unicetric/atraumatic/EOMI (follows commands) NECK: JVD elevated, no thyromegaly Lymph: no lymphadenopathy HEART: regular with no S3, II/ systolic murmur at apex, ICD LUNGS: Coarse sounds ABD: soft, NT, ND, +BS : Intact Neuro: non focal SKIN: chronic changes EXT: trace edema Results Result Diagram: 02/14/1771302/14/17713 Results 24 hrs Laboratory Tests Test 02/14/17 07:14 White Blood Count 3.9 L Red Blood Count 3.45 L Hemoglobin 11.2 L Hematocrit 33.1 L Mean Corpuscular Volume 95.9 Mean Corpuscular Hemoglobin 32.5 Mean Corpuscular Hemoglobin Concent 33.8 Red Cell Distribution Width 13.2 Platelet Count 229 Mean Platelet Volume 10.5 H Neutrophils % 75.2 Lymphocytes % 6.9 L Monocytes % 14.6 H Eosinophils % 1.5 Basophils % 1.3 Nucleated Red Blood Cells % 0.0 Neutrophils # 2.9 Lymphocytes # 0.3 L Monocytes # 0.6 Eosinophils # 0.1 Basophils # 0.1 Nucleated Red Blood Cells # 0.0 Sodium Level 132 L Potassium Level 3.9 Chloride Level 88 L Carbon Dioxide Level 31 Anion Gap 17 H Blood Urea Nitrogen 25 H Creatinine 1.26 H Glucose Level 120 Calcium Level 8.8 Phosphorus Level 3.8 Magnesium Level 1.8 Albumin 3.7 Medications Medications Current Medications Ondansetron HCl (Zofran Inj) 4 mg Q6H PRN IV NAUSEA AND/OR VOMITING Last administered on 02/13/17 17:25; Admin Dose 4 MG; Start 02/12/17 at 14:00 Acetaminophen (Tylenol Tab) 650 mg Q6H PRN PO PAIN LEVEL 1-3 OR FEVER; Start 02/12/17 at 14:00 Oxycodone/ Acetaminophen (Percocet (5/ 325)) 1 tab Q6H PRN PO SEVERE PAIN LEVEL 7-10; Start 02/12/17 at 14:00 Bisacodyl (Dulcolax) 5 mg DAILY PRN PO CONSTIPATION; Start 02/12/17 at 14:00 Pantoprazole (Protonix Tab) 40 mg DAILY@06 PO Last administered on 02/14/17 05:47; Admin Dose 40 MG; Start 02/13/17 at 06:00 Aspirin (Halfprin) 81 mg DAILY PO Last administered on 02/14/17 09:06; Admin Dose 81 MG; Start 02/13/17 at 09:00 Atorvastatin Calcium (Lipitor) 20 mg HS PO Last administered on 02/13/17 21: 07; Admin Dose 20 MG; Start 02/12/17 at 21:00 Carvedilol (Coreg) 3.125 mg BID PO Last administered on 02/14/17 09:06; Admin Dose 3.125 MG; Start 02/12/17 at 21:00 Lisinopril (Zestril) 2.5 mg DAILY PO ; Start 02/14/17 at 09:00 STEFANY BOYCE MD Feb 14, 2017 09:29
[2017-02-14] MEDS: ALBUTEROL/IPRATROPIUM (NEB) 3 ML AMP HHN SCH ×3 (09:55→20:08)
--- NOTE | 2017-02-14 12:08 | PN ---
Date/Time of Note Date/Time of Note DATE: 02/14/17 TIME: 12:08 Assessment/Plan VTE Prophylaxis VTE Prophylaxis Intervention: SCD's Lines/Catheters IV Catheter Type (from Nrs): [employer] line still needed: No Urinary Cath still in place: No Assessment/Plan Assessment/Plan 1. Bilateral pleural effusions, likely malignant - Pleurx cath in place and denies any discomfort at site of insertion. Will need to set up HH for frequent drainage - Continue on NC and wean as tolerating to keep saturations >90% - Pulmonology on board and recommendations appreciated. 2. Leukopenia- improving - stable, trending upward 3. Cardiomyopathy, congestive heart failure, acute on chronic ejection fraction 45% - Cardiology on board and recommendations appreciated - Will need ICD battery changed once SOB stable. - Patient has been experiencing weakness and tachycardia. will increase BB 4. 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 Tay, oncology 5. Anemia of chronic disease - currently stable - will continue monitoring 6. Acute kidney injury - Cr slightly elevated. Will continue to monitor 7. Disposition - Continue monitoring in Telemetry Subjective 24 Hr Interval Summary Free Text/Dictation Patient states shortness of breath has improved but experiencing generalized weakness with some nausea. Tolerating PO diet without any vomiting. Denies any chest pain, dizziness, or abdominal issues. Exam/Review of Systems Vital Signs Vitals Vital Signs Date Time Temp Pulse Resp B/P Pulse Ox O2 Delivery O2 Flow Rate FiO2 02/14/17 11:17 98.4 104 21 88/55 90 02/14/17 10:00 5.0 02/14/17 09:58 Nasal Cannula Intake and Output 02/13/17 02/13/17 02/14/17 15:00 23:00 07:00 Intake Total 230 ml 400 ml Output Total 3100 ml 600 ml Balance -2870 ml -200 ml Exam Constitutional: fatigued, NAD, awake and alert. fatigued Psych: nl mood/affect Head: atraumatic, normocephalic Eyes: EOMI, PERRL Respiratory: diminished breath sounds bases, No crackles/rales, No wheezing. pleurx cath in place Cardiovascular: tachycardia, nl rhythm, no murmurs No edema Gastrointestinal: non-tender, soft, No distended, No rebound or guarding Musculoskeletal: nl extremities to inspection Extremities: normal pulses Neurological: [employer] II-XII intact, nl mental status Skin: nl turgor Lymph: nl lymph nodes Results Result Diagram: 02/14/1771302/14/1714 Results 24 hrs Laboratory Tests Test 02/14/17 07:14 White Blood Count 3.9 L Red Blood Count 3.45 L Hemoglobin 11.2 L Hematocrit 33.1 L Mean Corpuscular Volume 95.9 Mean Corpuscular Hemoglobin 32.5 Mean Corpuscular Hemoglobin Concent 33.8 Red Cell Distribution Width 13.2 Platelet Count 229 Mean Platelet Volume 10.5 H Neutrophils % 75.2 Lymphocytes % 6.9 L Monocytes % 14.6 H Eosinophils % 1.5 Basophils % 1.3 Nucleated Red Blood Cells % 0.0 Neutrophils # 2.9 Lymphocytes # 0.3 L Monocytes # 0.6 Eosinophils # 0.1 Basophils # 0.1 Nucleated Red Blood Cells # 0.0 Sodium Level 132 L Potassium Level 3.9 Chloride Level 88 L Carbon Dioxide Level 31 Anion Gap 17 H Blood Urea Nitrogen 25 H Creatinine 1.26 H Glucose Level 120 Calcium Level 8.8 Phosphorus Level 3.8 Magnesium Level 1.8 Albumin 3.7 Medications Medications Current Medications Ondansetron HCl (Zofran Inj) 4 mg Q6H PRN IV NAUSEA AND/OR VOMITING Last administered on 02/13/17 17:25; Admin Dose 4 MG; Start 02/12/17 at 14:00 Acetaminophen (Tylenol Tab) 650 mg Q6H PRN PO PAIN LEVEL 1-3 OR FEVER; Start 02/12/17 at 14:00 Oxycodone/ Acetaminophen (Percocet (5/ 325)) 1 tab Q6H PRN PO SEVERE PAIN LEVEL 7-10; Start 02/12/17 at 14:00 Bisacodyl (Dulcolax) 5 mg DAILY PRN PO CONSTIPATION; Start 02/12/17 at 14:00 Pantoprazole (Protonix Tab) 40 mg DAILY@06 PO Last administered on 02/14/17 05:47; Admin Dose 40 MG; Start 02/13/17 at 06:00 Aspirin (Halfprin) 81 mg DAILY PO Last administered on 02/14/17 09:06; Admin Dose 81 MG; Start 02/13/17 at 09:00 Atorvastatin Calcium (Lipitor) 20 mg HS PO Last administered on 02/13/17 21: 07; Admin Dose 20 MG; Start 02/12/17 at 21:00 Carvedilol (Coreg) 3.125 mg BID PO Last administered on 02/14/17 09:06; Admin Dose 3.125 MG; Start 02/12/17 at 21:00 Lisinopril (Zestril) 2.5 mg DAILY PO ; Start 02/14/17 at 09:00 GARY CROSS MD Feb 14, 2017 12:08
--- NOTE | 2017-02-14 15:54 | CONS ---
Date/Time of Note Date/Time of Note DATE: 02/14/17 TIME: 15:52 Assessment/Plan Assessment/Plan Additional Assessment/Plan Assessment recommendations; 1. Patient admitted with recurrent pleural effusion status post left Pleurx catheter placement. 2. Anemia. 3. Metastatic breast cancer. Continue current treatment. Arrange home health for periodic limb drainage at home. Prognosis is poor. Consultation Date/Type/Reason Admit Date/Time Feb 12, 2017 at 09:06 Type of Consultation: Pulmonary Referring Provider: GARY CROSS MD 24 HR Interval Summary Free Text/Dictation Patient condition remains stable. Underwent left Pleurx catheter placement yesterday 1000 mL of fluid was drained. General exam; elderly woman, awake and alert. Currently in no distress. Exam/Review of Systems Vital Signs Vitals Vital Signs Date Time Temp Pulse Resp B/P Pulse Ox O2 Delivery O2 Flow Rate FiO2 02/14/17 15:15 98.6 119 20 100/52 93 02/14/17 14:12 5.0 02/14/17 14:08 Nasal Cannula Intake and Output 02/13/17 02/13/17 02/14/17 15:00 23:00 07:00 Intake Total 230 ml 400 ml Output Total 3100 ml 600 ml Balance -2870 ml -200 ml Exam HEENT exam; supple neck, no JVD. No lymphadenopathy. Midline trachea. No thyromegaly. Patient has multiple carious teeth. Chest exam; diminished breath on lung bases bilaterally. Left Pleurx catheter in place. S1-S2 audible, no murmurs. Regular rhythm. Abdomen exam; soft, nontender. No organomegaly. Bowel sounds audible. Extremity exam; no peripheral edema. [employer] exam; no focal deficit. Results Result Diagram: 02/14/17 0714 02/14/17 07 Results 24 hrs Laboratory Tests Test 02/14/17 07:14 White Blood Count 3.9 L Red Blood Count 3.45 L Hemoglobin 11.2 L Hematocrit 33.1 L Mean Corpuscular Volume 95.9 Mean Corpuscular Hemoglobin 32.5 Mean Corpuscular Hemoglobin Concent 33.8 Red Cell Distribution Width 13.2 Platelet Count 229 Mean Platelet Volume 10.5 H Neutrophils % 75.2 Lymphocytes % 6.9 L Monocytes % 14.6 H Eosinophils % 1.5 Basophils % 1.3 Nucleated Red Blood Cells % 0.0 Neutrophils # 2.9 Lymphocytes # 0.3 L Monocytes # 0.6 Eosinophils # 0.1 Basophils # 0.1 Nucleated Red Blood Cells # 0.0 Sodium Level 132 L Potassium Level 3.9 Chloride Level 88 L Carbon Dioxide Level 31 Anion Gap 17 H Blood Urea Nitrogen 25 H Creatinine 1.26 H Glucose Level 120 Calcium Level 8.8 Phosphorus Level 3.8 Magnesium Level 1.8 Albumin 3.7 Medications Medications Current Medications Ondansetron HCl (Zofran Inj) 4 mg Q6H PRN IV NAUSEA AND/OR VOMITING Last administered on 02/13/17 17:25; Admin Dose 4 MG; Start 02/12/17 at 14:00 Acetaminophen (Tylenol Tab) 650 mg Q6H PRN PO PAIN LEVEL 1-3 OR FEVER; Start 02/12/17 at 14:00 Oxycodone/ Acetaminophen (Percocet (5/ 325)) 1 tab Q6H PRN PO SEVERE PAIN LEVEL 7-10; Start 02/12/17 at 14:00 Bisacodyl (Dulcolax) 5 mg DAILY PRN PO CONSTIPATION; Start 02/12/17 at 14:00 Pantoprazole (Protonix Tab) 40 mg DAILY@06 PO Last administered on 02/14/17 05:47; Admin Dose 40 MG; Start 02/13/17 at 06:00 Aspirin (Halfprin) 81 mg DAILY PO Last administered on 02/14/17 09:06; Admin Dose 81 MG; Start 02/13/17 at 09:00 Atorvastatin Calcium (Lipitor) 20 mg HS PO Last administered on 02/13/17 21: 07; Admin Dose 20 MG; Start 02/12/17 at 21:00 Carvedilol (Coreg) 3.125 mg BID PO Last administered on 02/14/17 09:06; Admin Dose 3.125 MG; Start 02/12/17 at 21:00 Lisinopril (Zestril) 2.5 mg DAILY PO ; Start 02/14/17 at 09:00 DAGOBERTO CAO Feb 14, 2017 15:54
--- NOTE | 2017-02-14 15:55 | CONS ---
Date/Time of Note Date/Time of Note DATE: 02/14/17 TIME: 15:47 Consultation Date/Type/Reason Admit Date/Time Feb 12, 2017 at 09:06 Type of Consultation: Palliative care Hx of Present Illness This patient is a 81-year-old female which I obtained the entire medical history from patient's chart and speaking with her son. First all patient's son is insisting that no one speak to his mother concerning her diagnosis. However patient is still going to her oncologist receiving chemotherapy both orally and IV. Son states me is telling his mother that she has 1 spot or lesion on her spine that needs to be addressed and they have refused anyone telling her that she has peritoneal metastases or possible pulmonary metastases. He is focuses his questions on his mother's pacemaker and feels that if the battery is replaced she will significantly improve and be able to fight the cancer better. She has had a Pleurx catheter placed and was admitted here for increasing shortness of breath all likelihood secondary to pleural and peritoneal effusions. Patient's son is vague when I asked him if he feels his mother truly knows her diagnosis. Answer is somewhat unclear but he does insist he does not want anyone to tell her that she has metastatic disease. Therefore I have not been able to address palliative care issues, goals of care , he insists that she has no pain and she looks very comfortable to me. I do not believe that this family is anywhere near ready to discuss goals of care however if she is readmitted in the future I would be happy to gently bring up that question once again. As her disease progresses it may become more clear to them to discuss her diagnosis and what her wishes are. Psychological: nl mood/affect Past Surgical History Past Surgical Hx: other Social History Smoking Status: Never smoker Exam/Review of Systems Vital Signs Vitals Vital Signs Date Time Temp Pulse Resp B/P Pulse Ox O2 Delivery O2 Flow Rate FiO2 02/14/17 15:15 98.6 119 20 100/52 93 02/14/17 14:12 5.0 02/14/17 14:08 Nasal Cannula Intake and Output 02/13/17 02/13/17 02/14/17 15:00 23:00 07:00 Intake Total 230 ml 400 ml Output Total 3100 ml 600 ml Balance -2870 ml -200 ml Results Result Diagram: 02/14/17 0714 02/14/1714 Results 24 hrs Laboratory Tests Test 02/14/17 07:14 White Blood Count 3.9 L Red Blood Count 3.45 L Hemoglobin 11.2 L Hematocrit 33.1 L Mean Corpuscular Volume 95.9 Mean Corpuscular Hemoglobin 32.5 Mean Corpuscular Hemoglobin Concent 33.8 Red Cell Distribution Width 13.2 Platelet Count 229 Mean Platelet Volume 10.5 H Neutrophils % 75.2 Lymphocytes % 6.9 L Monocytes % 14.6 H Eosinophils % 1.5 Basophils % 1.3 Nucleated Red Blood Cells % 0.0 Neutrophils # 2.9 Lymphocytes # 0.3 L Monocytes # 0.6 Eosinophils # 0.1 Basophils # 0.1 Nucleated Red Blood Cells # 0.0 Sodium Level 132 L Potassium Level 3.9 Chloride Level 88 L Carbon Dioxide Level 31 Anion Gap 17 H Blood Urea Nitrogen 25 H Creatinine 1.26 H Glucose Level 120 Calcium Level 8.8 Phosphorus Level 3.8 Magnesium Level 1.8 Albumin 3.7 Medications Medications Current Medications Ondansetron HCl (Zofran Inj) 4 mg Q6H PRN IV NAUSEA AND/OR VOMITING Last administered on 02/13/17 17:25; Admin Dose 4 MG; Start 02/12/17 at 14:00 Acetaminophen (Tylenol Tab) 650 mg Q6H PRN PO PAIN LEVEL 1-3 OR FEVER; Start 02/12/17 at 14:00 Oxycodone/ Acetaminophen (Percocet (5/ 325)) 1 tab Q6H PRN PO SEVERE PAIN LEVEL 7-10; Start 02/12/17 at 14:00 Bisacodyl (Dulcolax) 5 mg DAILY PRN PO CONSTIPATION; Start 02/12/17 at 14:00 Pantoprazole (Protonix Tab) 40 mg DAILY@06 PO Last administered on 02/14/17 05:47; Admin Dose 40 MG; Start 02/13/17 at 06:00 Aspirin (Halfprin) 81 mg DAILY PO Last administered on 02/14/17 09:06; Admin Dose 81 MG; Start 02/13/17 at 09:00 Atorvastatin Calcium (Lipitor) 20 mg HS PO Last administered on 02/13/17 21: 07; Admin Dose 20 MG; Start 02/12/17 at 21:00 Carvedilol (Coreg) 3.125 mg BID PO Last administered on 02/14/17t 09:06; Admin Dose 3.125 MG; Start 02/12/17 at 21:00 Lisinopril (Zestril) 2.5 mg DAILY PO ; Start 02/14/17 at 09:00 LUIZ SMALLS Feb 14, 2017 15:55
[2017-02-14] MEDS: ATORVASTATIN 20 MG TAB PO SCH (21:18)
[2017-02-15] VITALS (10 sets, daily range): BP systolic 86–121; BP diastolic 47–68; PULSE 83–105; RESP 19
[2017-02-15] MEDS: PANTOPRAZOLE (EC) 40 MG TAB PO SCH (05:48)
[2017-02-15] MEDS: FUROSEMIDE 20 MG INJ IV SCH ×2 (05:55→18:00)
[2017-02-15] MEDS: ALBUTEROL/IPRATROPIUM (NEB) 3 ML AMP HHN SCH ×3 (07:47→19:48)
[2017-02-15] MEDS: LISINOPRIL 5 MG TAB PO SCH (08:32)
[2017-02-15] MEDS: ASPIRIN (EC) 81 MG TAB PO SCH (08:33)
--- NOTE | 2017-02-15 13:16 | CONS ---
Date/Time of Note Date/Time of Note DATE: 02/15/17 TIME: 13:10 Assessment/Plan Assessment/Plan Chief Complaint/Hosp Course IMP: 1.CHF-systolic acute on chronic 2. cardiomyopathy 3.ICD near EOL 4.Pleural effusion 5.Leukopenia 6.Met Breast CA 7. Hyponatremia-ongoing 8. Renal failure Recc: -Tele -Lasix diuresis -Continue BB/statin/ASA -Continue ACEI afterload reduction -ICD generator change by DR philip when stable -Hold lasix and follow volume status closely Problems: Consultation Date/Type/Reason Admit Date/Time Feb 12, 2017 at 09:06 Initial Consult Date 02/12/2017 Type of Consultation: cardioloogy Reason for Consultation CHF Referring Provider: GARY CROSS MD Exam/Review of Systems Vital Signs Vitals Vital Signs Date Time Temp Pulse Resp B/P Pulse Ox O2 Delivery O2 Flow Rate FiO2 02/15/17 12:41 96 02/15/17 11:57 98.2 19 86/47 95 02/15/17 10:18 6.0 02/15/17 07:47 Nasal Cannula Intake and Output 02/14/17 02/14/17 02/15/17 15:00 23:00 07:00 Intake Total 300 ml Output Total 550 ml Balance -250 ml Exam Review of Systems: CONSTITUTIONAL: No fevers, chills. PULMONARY: mild sob CARDIOVASCULAR: No chest pain/palpitations GASTROINTESTINAL: No nausea/vomiting. GENITOURINARY: No hematuria/dysuria. MUSCULOSKELETAL: No myagias/arthalgias. PSYCHIATRIC: The patient denies depression. NEUROLOGIC: No weakness Constitutional: alert Psych: no complaints Head: normocephalic ENMT: mucosa pink and moist Neck: jvd (9 cm water), supple Respiratory: diminished breath sounds Cardiovascular: regular rate and rhythm Gastrointestinal: non-tender, soft Musculoskeletal: muscle tone (normal) Extremities: edema (none) Neurological: other (NOne) Results Result Diagram: 02/15/17 0741 02/15/17 0742 Results 24 hrs Laboratory Tests Test 02/15/17 07:41 02/15/17 07:42 White Blood Count 4.4 L Red Blood Count 3.31 L Hemoglobin 11.0 L Hematocrit 31.8 L Mean Corpuscular Volume 96.1 Mean Corpuscular Hemoglobin 33.2 H Mean Corpuscular Hemoglobin Concent 34.6 Red Cell Distribution Width 13.2 Platelet Count 247 Mean Platelet Volume 11.5 H Neutrophils % 73.4 Lymphocytes % 7.3 L Monocytes % 15.1 H Eosinophils % 2.8 Basophils % 0.7 Nucleated Red Blood Cells % 0.0 Neutrophils # 3.2 Lymphocytes # 0.3 L Monocytes # 0.7 Eosinophils # 0.1 Basophils # 0.0 Nucleated Red Blood Cells # 0.0 Sodium Level 132 L Potassium Level 3.9 Chloride Level 92 L Carbon Dioxide Level 29 Anion Gap 15 Blood Urea Nitrogen 35 H Creatinine 1.25 H Glucose Level 116 Calcium Level 8.7 Phosphorus Level 3.6 Magnesium Level 1.8 Albumin 3.6 Medications Medications Current Medications Ondansetron HCl (Zofran Inj) 4 mg Q6H PRN IV NAUSEA AND/OR VOMITING Last administered on 02/13/17 17:25; Admin Dose 4 MG; Start 02/12/17 at 14:00 Acetaminophen (Tylenol Tab) 650 mg Q6H PRN PO PAIN LEVEL 1-3 OR FEVER; Start 02/12/17 at 14:00 Oxycodone/ Acetaminophen (Percocet (5/ 325)) 1 tab Q6H PRN PO SEVERE PAIN LEVEL 7-10; Start 02/12/17 at 14:00 Bisacodyl (Dulcolax) 5 mg DAILY PRN PO CONSTIPATION; Start 02/12/17 at 14:00 Pantoprazole (Protonix Tab) 40 mg DAILY@06 PO Last administered on 02/15/17 05:48; Admin Dose 40 MG; Start 02/13/17 at 06:00 Aspirin (Halfprin) 81 mg DAILY PO Last administered on 02/15/17 08:33; Admin Dose 81 MG; Start 02/13/17 at 09:00 Atorvastatin Calcium (Lipitor) 20 mg HS PO Last administered on 02/14/17 21: 18; Admin Dose 20 MG; Start 02/12/17 at 21:00 Lisinopril (Zestril) 2.5 mg DAILY PO Last administered on 02/15/17 08:32; Admin Dose 2.5 MG; Start 02/14/17 at 09:00 Carvedilol (Coreg) 6.25 mg BID PO Last administered on 02/15/17 08:33; Admin Dose 6.25 MG; Start 02/14/17 at 21:00 ROXIE VELARDE Feb 15, 2017 13:16
--- NOTE | 2017-02-15 13:51 | PN ---
Date/Time of Note Date/Time of Note DATE: 02/15/17 TIME: 13:37 Assessment/Plan VTE Prophylaxis VTE Prophylaxis Intervention: other Lines/Catheters IV Catheter Type (from [facility]): [place] [facility] Urinary Cath still in place: No (DC by [facility] RN) Assessment/Plan Assessment/Plan 1. Bilateral pleural effusions, likely malignant - Pleurx cath in place and denies any discomfort at site of insertion. Will need to set up HH for frequent drainage upon discharge - Spoke with Dr. Blevins, Pulmonology, and states can be drained every 3 days, or more frequently based on output. Will place order for drainage. - Continue on NC and wean as tolerating to keep saturations >90% - Pulmonology on board and recommendations appreciated. 2. Leukopenia- improving - stable, trending upward 3. Cardiomyopathy, congestive heart failure, acute on chronic ejection fraction 45% - Cardiology on board and recommendations appreciated. Will hold off on Lasix for now - Continue BB/statin/BARBIE with holding parameters - ICD battery change with Dr. Pineda once SOB resolved 4. 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 Tay, oncology 5. Anemia of chronic disease - currently stable - will continue monitoring 6. Acute kidney injury - Cr slightly elevated. Will continue to monitor - Lasix d/c 7. Disposition - Continue monitoring in Telemetry Subjective 24 Hr Interval Summary Free Text/Dictation Patient still c/o shortness of breath and generalized weakness. Was desaturating yesterday and required more O2 but improving today. Exam/Review of Systems Vital Signs Vitals Vital Signs Date Time Temp Pulse Resp B/P Pulse Ox O2 Delivery O2 Flow Rate FiO2 02/15/17 13:18 95 24 95 Nasal Cannula 6.0 02/15/17 11:57 98.2 86/47 Intake and Output 02/14/17 02/14/17 02/15/17 15:00 23:00 07:00 Intake Total 300 ml Output Total 550 ml Balance -250 ml Exam Constitutional: fatigued, NAD, awake and alert. fatigued Head: atraumatic, normocephalic Eyes: EOMI, PERRL Respiratory: diminished breath sounds bases, No crackles/rales, No wheezing. pleurx cath in place and capped Cardiovascular: tachycardia, nl rhythm, no murmurs No edema Gastrointestinal: non-tender, soft, No distended, No rebound or guarding Musculoskeletal: nl extremities to inspection Extremities: normal pulses Neurological: [employer] SALESP[employer] II-XII intact, nl mental status Skin: nl turgor Lymph: nl lymph nodes Results Result Diagram: 02/15/17 0741 02/15/17 0742 Results 24 hrs Laboratory Tests Test 02/15/17 07:41 02/15/17 07:42 White Blood Count 4.4 L Red Blood Count 3.31 L Hemoglobin 11.0 L Hematocrit 31.8 L Mean Corpuscular Volume 96.1 Mean Corpuscular Hemoglobin 33.2 H Mean Corpuscular Hemoglobin Concent 34.6 Red Cell Distribution Width 13.2 Platelet Count 247 Mean Platelet Volume 11.5 H Neutrophils % 73.4 Lymphocytes % 7.3 L Monocytes % 15.1 H Eosinophils % 2.8 Basophils % 0.7 Nucleated Red Blood Cells % 0.0 Neutrophils # 3.2 Lymphocytes # 0.3 L Monocytes # 0.7 Eosinophils # 0.1 Basophils # 0.0 Nucleated Red Blood Cells # 0.0 Sodium Level 132 L Potassium Level 3.9 Chloride Level 92 L Carbon Dioxide Level 29 Anion Gap 15 Blood Urea Nitrogen 35 H Creatinine 1.25 H Glucose Level 116 Calcium Level 8.7 Phosphorus Level 3.6 Magnesium Level 1.8 Albumin 3.6 Medications Medications Current Medications Ondansetron HCl (Zofran Inj) 4 mg Q6H PRN IV NAUSEA AND/OR VOMITING Last administered on 02/13/17 17:25; Admin Dose 4 MG; Start 02/12/17 at 14:00 Acetaminophen (Tylenol Tab) 650 mg Q6H PRN PO PAIN LEVEL 1-3 OR FEVER; Start 02/12/17 at 14:00 Oxycodone/ Acetaminophen (Percocet (5/ 325)) 1 tab Q6H PRN PO SEVERE PAIN LEVEL 7-10; Start 02/12/17 at 14:00 Bisacodyl (Dulcolax) 5 mg DAILY PRN PO CONSTIPATION; Start 02/12/17 at 14:00 Pantoprazole (Protonix Tab) 40 mg DAILY@06 PO Last administered on 02/15/17 05:48; Admin Dose 40 MG; Start 02/13/17 at 06:00 Aspirin (Halfprin) 81 mg DAILY PO Last administered on 02/15/17 08:33; Admin Dose 81 MG; Start 02/13/17 at 09:00 Atorvastatin Calcium (Lipitor) 20 mg HS PO Last administered on 02/14/17 21: 18; Admin Dose 20 MG; Start 02/12/17 at 21:00 Lisinopril (Zestril) 2.5 mg DAILY PO Last administered on 02/15/17 08:32; Admin Dose 2.5 MG; Start 02/14/17 at 09:00 Carvedilol (Coreg) 6.25 mg BID PO Last administered on 02/15/17 08:33; Admin Dose 6.25 MG; Start 02/14/17 at 21:00 GARY CROSS MD Feb 15, 2017 13:51
[2017-02-15] MEDS: OXYCODONE/ACETAMINOPHEN (5/325) TAB PO PRN (16:42)
[2017-02-15] MEDS: ONDANSETRON 4 MG INJ IV PRN (18:39)
[2017-02-15] MEDS: ATORVASTATIN 20 MG TAB PO SCH (21:50)
[2017-02-16] VITALS (72 sets, daily range): BP systolic 49–133; BP diastolic 38–80; PULSE 78–108; RESP 14–33
[2017-02-16] MEDS ORDERED: SOD CHLORIDE 0.9% 500 ML IV ONE ×2 (01:13→02:40)
--- NOTE | 2017-02-16 04:36 | RADRPT ---
PROCEDURE: CHEST - 1 VIEW CLINICAL INDICATION: 81-year-old female with shortness of breath and hypotension. TECHNIQUE: A single frontal AP semi-erect portable view of the chest was performed. The images we re reviewed on a PACS workstation. COMPARISON: Chest x-ray February 12, 2017; CT chest January 31, 2017. FINDINGS: There is a left-sided AICD biventricular pacemaker combination. The cardiomediastinal silhouette is mildly enlarged. The aortic arch is again noted to be prominent and mildly calcified. There is incr easing large right pleural effusion extending to the right lung apex with compressive atelectasis of the right lung with residual central aeration. There is a small left pleural effusion. There is mil d left basilar subsegmental atelectasis. There is no evidence for congestive heart failure. There is no evidence for pneumothorax. Surgical clips are seen within the right axillary region from prior l ymph node dissection. The patient has had a right-sided mastectomy. There are old fracture deformiti es involving the right sixth, seventh and eighth ribs posteriorly. IMPRESSION: 1. Left-sided AICD biventricular pacemaker combination. 2. Mild cardiomegaly. 3. Calcified thoracic aortic arch. 4. Increasing large right pleural effusion with compressive atelectasis with mild residual central aeration. 5. Small left pleural effusion and mild left basilar subsegmental atelectasis. 6. Status post right mastectomy with lymph node dissection. 7. Old right posterior sixth, seventh and eighth rib fracture deformities. .Phu Arzate MD, MD Date Time Electronically viewed and signed by .Phu Arzate MD, on 02/16/2017 04:35 .M/
--- NOTE | 2017-02-16 04:38 | EN ---
Date/Time of Note Date/Time of Note DATE: 02/16/17 TIME: 04:31 Event Note Medicine Medicine Event Note Was called to the room by the RN to assess the patient for hypotension. Blood pressure was repeated multiple times on the Left upper extremity and right lower extremity with SBP ranging from 74 to 81. Patient appears comfortable in bed. Conversing appropriately. Does not appear in any distress. She does not appear lethargic. 500cc normal saline bolus given with no improvement of BP. Additional 500cc ordered. Approximately at 12:40 AM: T: 98 HR; 88 RR:18 BP: 75/40 after total of 800cc given. BP: 70/ 40 General: patient lying in bed in no acute distress Heent: nc/at, EOMI CVS: RRR, no overt murmurs lungs: Decreased breath sounds across right lung field, not in respiratory distress. No increased work of breathing. Extremities: no edema Chest xray: Worsening right pleural effusion A/p: #1 hypotension: Stat EKG, stat Chest xray, 500cc normal saline bolus x 2, CBC, BMP, troponin. Patient BP systolic is 70. Will transfer to ICU and start levophed peripherally for now, until we can get better access in the AM. Will likely need additional fluids however we need to be cautious with #2. #2 Right pleural effusion: worsened from prior. Will need to have drainage today. However, Will need to stabilize BP first. Greater than 35 minutes of critical care time was spent on the care and management of this patient. RADHA TAVARES Feb 16, 2017 04:38
[2017-02-16] MEDS: PANTOPRAZOLE (EC) 40 MG TAB PO SCH (06:00)
[2017-02-16] MEDS: FUROSEMIDE 20 MG INJ IV SCH ×2 (06:00→18:36)
[2017-02-16] MEDS ORDERED: NORepinephrine 8MG/250 ML (PMX 0 ML ONE (06:18)
[2017-02-16] MEDS: LISINOPRIL 5 MG TAB PO SCH (09:00)
[2017-02-16] MEDS: ALBUTEROL/IPRATROPIUM (NEB) 3 ML AMP HHN SCH ×3 (09:46→20:35)
[2017-02-16] MEDS: ASPIRIN (EC) 81 MG TAB PO SCH (09:51)
--- NOTE | 2017-02-16 10:14 | CONS ---
Date/Time of Note Date/Time of Note DATE: 02/16/17 TIME: 10:11 Assessment/Plan Assessment/Plan Chief Complaint/Hosp Course IMP: 1.CHF-systolic acute on chronic 2. cardiomyopathy 3.ICD near EOL 4.Pleural effusion 5.Leukopenia 6.Met Breast CA 7. Hyponatremia-ongoing 8. Renal failure 9. Hypotension-acute requiring transfer overnight and inititaion of pressors Recc: -Tele -Hold lasix/ antihypertensives -Continue statin/ASA -ICD generator change by DR philip when stable -IVF hydration -would check bld cx's -wean pressors as tolerated Problems: Consultation Date/Type/Reason Admit Date/Time Feb 12, 2017 at 09:06 Initial Consult Date 02/12/2017 Type of Consultation: cardiology Reason for Consultation HYpotension Referring Provider: GARY CROSS MD Exam/Review of Systems Vital Signs Vitals Vital Signs Date Time Temp Pulse Resp B/P Pulse Ox O2 Delivery O2 Flow Rate FiO2 02/16/17 08:00 84 02/16/17 08:00 Nasal Cannula 4.0 02/16/17 06:33 98.5 20 68/44 02/16/17 00:41 97 Intake and Output 02/15/17 02/15/17 02/16/17 15:00 23:00 07:00 Intake Total 400 ml Output Total 600 ml Balance -200 ml Exam Review of Systems: CONSTITUTIONAL: No fevers, chills. PULMONARY: No sob CARDIOVASCULAR:Hypotension GASTROINTESTINAL: No nausea/vomiting. GENITOURINARY: No hematuria/dysuria. MUSCULOSKELETAL: No myagias/arthalgias. PSYCHIATRIC: The patient denies depression. NEUROLOGIC: No weakness Constitutional: alert Psych: no complaints Head: normocephalic ENMT: mucosa pink and moist Neck: jvd (none), supple Respiratory: diminished breath sounds Cardiovascular: regular rate and rhythm Gastrointestinal: non-tender, soft Musculoskeletal: muscle tone (normal) Extremities: edema (none) Neurological: other (NO focal deficits) Results Result Diagram: 02/16/17 0655 02/16/17 0655 Results 24 hrs Laboratory Tests Test 02/16/17 03:28 02/16/17 06:55 White Blood Count 5.0 4.6 L Red Blood Count 3.23 L 2.93 L Hemoglobin 10.6 L 9.7 L Hematocrit 30.9 L 28.2 L Mean Corpuscular Volume 95.7 96.2 Mean Corpuscular Hemoglobin 32.8 33.1 H Mean Corpuscular Hemoglobin Concent 34.3 34.4 Red Cell Distribution Width 13.3 13.4 Platelet Count 227 229 Mean Platelet Volume 11.4 H 10.9 H Neutrophils % 74.7 72.6 Lymphocytes % 6.4 L 6.8 L Monocytes % 15.5 H 15.5 H Eosinophils % 2.2 3.3 Basophils % 0.6 0.9 Nucleated Red Blood Cells % 0.0 0.0 Neutrophils # 3.7 3.3 Lymphocytes # 0.3 L 0.3 L Monocytes # 0.8 0.7 Eosinophils # 0.1 0.2 Basophils # 0.0 0.0 Nucleated Red Blood Cells # 0.0 0.0 Sodium Level 130 L 129 L Potassium Level 3.8 3.4 L Chloride Level 88 L 93 L Carbon Dioxide Level 33 H 29 Anion Gap 13 10 Blood Urea Nitrogen 49 #H 48 H Creatinine 2.50 #H 2.32 H Glucose Level 124 124 Calcium Level 8.2 L 7.9 L Troponin I 0.021 Phosphorus Level 4.9 Magnesium Level 1.7 Albumin 3.0 L Medications Medications Current Medications Ondansetron HCl (Zofran Inj) 4 mg Q6H PRN IV NAUSEA AND/OR VOMITING Last administered on 02/15/17 18:39; Admin Dose 4 MG; Start 02/12/17 at 14:00 Acetaminophen (Tylenol Tab) 650 mg Q6H PRN PO PAIN LEVEL 1-3 OR FEVER; Start 02/12/17 at 14:00 Oxycodone/ Acetaminophen (Percocet (5/ 325)) 1 tab Q6H PRN PO SEVERE PAIN LEVEL 7-10 Last administered on 02/15/17 16:42; Admin Dose 1 TAB; Start 02/12 at 14:00 Bisacodyl (Dulcolax) 5 mg DAILY PRN PO CONSTIPATION; Start 02/12/17 at 14:00 Pantoprazole (Protonix Tab) 40 mg DAILY@06 PO Last administered on 02/15/17 05:48; Admin Dose 40 MG; Start 02/13/17 at 06:00 Aspirin (Halfprin) 81 mg DAILY PO Last administered on 02/16/17 09:51; Admin Dose 81 MG; Start 02/13/17 at 09:00 Atorvastatin Calcium (Lipitor) 20 mg HS PO Last administered on 02/15/17 21: 50; Admin Dose 20 MG; Start 02/12/17 at 21:00 Lisinopril (Zestril) 2.5 mg DAILY PO Last administered on 02/15/17 08:32; Admin Dose 2.5 MG; Start 02/14/17 at 09:00 Carvedilol (Coreg) 6.25 mg BID PO Last administered on 02/15/17 21:51; Admin Dose 6.25 MG; Start 02/14/17 at 21:00 Guaifenesin/ Dextromethorphan 5 ml 5 ml Q4H PRN PO cough; Start 02/15/17 at 20 :00 Norepinephrine/ Dextrose (Levophed/D5W) 500 ml @ 1.87 mls/hr TITRATE IV Last administered on 02/16/17 07:04; Admin Dose 9.35 MLS/HR; Start 02/16/17 at 06: 00 ROXIE VELARDE Feb 16, 2017 10:14
[2017-02-16] MEDS ORDERED: LIDOCAINE 1% (MPF) 5 ML VIAL SC ONE (10:30)
--- NOTE | 2017-02-16 10:39 | CONS ---
Date/Time of Note Date/Time of Note DATE: 02/16/17 TIME: 10:36 Assessment/Plan Assessment/Plan Chief Complaint/Hosp Course This patient is a 81-year-old female which I obtained the entire medical history from patient's chart and speaking with her son. First all patient's son is insisting that no one speak to his mother concerning her diagnosis. However patient is still going to her oncologist receiving chemotherapy both orally and IV. Son states me is telling his mother that she has 1 spot or lesion on her spine that needs to be addressed and they have refused anyone telling her that she has peritoneal metastases or possible pulmonary metastases. He is focuses his questions on his mother's pacemaker and feels that if the battery is replaced she will significantly improve and be able to fight the cancer better. She has had a Pleurx catheter placed and was admitted here for increasing shortness of breath all likelihood secondary to pleural and peritoneal effusions. Patient's son is vague when I asked him if he feels his mother truly knows her diagnosis. Answer is somewhat unclear but he does insist he does not want anyone to tell her that she has metastatic disease. Therefore I have not been able to address palliative care issues, goals of care , he insists that she has no pain and she looks very comfortable to me. I do not believe that this family is anywhere near ready to discuss goals of care however if she is readmitted in the future I would be happy to gently bring up that question once again. As her disease progresses it may become more clear to them to discuss her diagnosis and what her wishes are. Problems: Consultation Date/Type/Reason Admit Date/Time Feb 12, 2017 at 09:06 Hx of Present Illness Patient has been transferred to the intensive care unit hypotensive. Just the [id number] is available at this time and I have asked her to have her son call me. I still do not believe that he is ready to address her underlying breast cancer however I will continue to maintain contact with them but not pushing in that direction. From a pain management standpoint she appears to be comfortable and physical symptoms are controlled. Psychological: no complaints Past Surgical History Past Surgical Hx: other Social History Smoking Status: Never smoker Exam/Review of Systems Vital Signs Vitals Vital Signs Date Time Temp Pulse Resp B/P Pulse Ox O2 Delivery O2 Flow Rate FiO2 02/16/17 09:47 93 2.0 02/16/17 09:47 87 28 Nasal Cannula 02/16/17 06:33 98.5 68/44 Intake and Output 02/15/17 02/15/17 02/16/17 14:59 22:59 06:59 Intake Total 400 ml Output Total 600 ml Balance -200 ml Results Result Diagram: 02/16/17 0655 02/16/17 0655 Results 24 hrs Laboratory Tests Test 02/16/17 03:28 02/16/17 06:55 White Blood Count 5.0 4.6 L Red Blood Count 3.23 L 2.93 L Hemoglobin 10.6 L 9.7 L Hematocrit 30.9 L 28.2 L Mean Corpuscular Volume 95.7 96.2 Mean Corpuscular Hemoglobin 32.8 33.1 H Mean Corpuscular Hemoglobin Concent 34.3 34.4 Red Cell Distribution Width 13.3 13.4 Platelet Count 227 229 Mean Platelet Volume 11.4 H 10.9 H Neutrophils % 74.7 72.6 Lymphocytes % 6.4 L 6.8 L Monocytes % 15.5 H 15.5 H Eosinophils % 2.2 3.3 Basophils % 0.6 0.9 Nucleated Red Blood Cells % 0.0 0.0 Neutrophils # 3.7 3.3 Lymphocytes # 0.3 L 0.3 L Monocytes # 0.8 0.7 Eosinophils # 0.1 0.2 Basophils # 0.0 0.0 Nucleated Red Blood Cells # 0.0 0.0 Sodium Level 130 L 129 L Potassium Level 3.8 3.4 L Chloride Level 88 L 93 L Carbon Dioxide Level 33 H 29 Anion Gap 13 10 Blood Urea Nitrogen 49 #H 48 H Creatinine 2.50 #H 2.32 H Glucose Level 124 124 Calcium Level 8.2 L 7.9 L Troponin I 0.021 Phosphorus Level 4.9 Magnesium Level 1.7 Albumin 3.0 L Medications Medications Current Medications Ondansetron HCl (Zofran Inj) 4 mg Q6H PRN IV NAUSEA AND/OR VOMITING Last administered on 02/15/17t 18:39; Admin Dose 4 MG; Start 02/12/17 at 14:00 Acetaminophen (Tylenol Tab) 650 mg Q6H PRN PO PAIN LEVEL 1-3 OR FEVER; Start 02/12/17 at 14:00 Oxycodone/ Acetaminophen (Percocet (5/ 325)) 1 tab Q6H PRN PO SEVERE PAIN LEVEL 7-10 Last administered on 02/15/17 16:42; Admin Dose 1 TAB; Start 02/12 at 14:00 Bisacodyl (Dulcolax) 5 mg DAILY PRN PO CONSTIPATION; Start 02/12/17 at 14:00 Pantoprazole (Protonix Tab) 40 mg DAILY@06 PO Last administered on 02/15/17 05:48; Admin Dose 40 MG; Start 02/13/17 at 06:00 Aspirin (Halfprin) 81 mg DAILY PO Last administered on 02/16/17 09:51; Admin Dose 81 MG; Start 02/13/17 at 09:00 Atorvastatin Calcium (Lipitor) 20 mg HS PO Last administered on 02/15/17 21: 50; Admin Dose 20 MG; Start 02/12/17 at 21:00 Lisinopril (Zestril) 2.5 mg DAILY PO Last administered on 02/15/17 08:32; Admin Dose 2.5 MG; Start 02/14/17 at 09:00 Carvedilol (Coreg) 6.25 mg BID PO Last administered on 02/15/17 21:51; Admin Dose 6.25 MG; Start 02/14/17 at 21:00 Guaifenesin/ Dextromethorphan 5 ml 5 ml Q4H PRN PO cough; Start 02/15/17 at 20 :00 Norepinephrine/ Dextrose (Levophed/D5W) 500 ml @ 1.87 mls/hr TITRATE IV Last administered on 02/16/17 07:04; Admin Dose 9.35 MLS/HR; Start 02/16/17 at 06: 00 LUIZ SMALLS Feb 16, 2017 10:39
--- NOTE | 2017-02-16 10:43 | CONS ---
Date/Time of Note Date/Time of Note DATE: 02/16/17 TIME: 10:35 Consult Date/Type/Reason Admit Date/Time Feb 12, 2017 at 09:06 Initial Consult Date Type of Consultation: Pulmonary Ordering Provider: GARY CROSS MD Subjective Patient awake alert this morning continues facemask oxygen. Mild shortness of breath. Still on vasopressor support. Objective Vital Signs Date Time Temp Pulse Resp B/P Pulse Ox O2 Delivery O2 Flow Rate FiO2 02/16/17 09:47 93 2.0 02/16/17 09:47 87 28 Nasal Cannula 02/16/17 08:45 105/50 02/16/17 06:33 98.5 Intake and Output 02/15/17 02/15/17 02/16/17 15:00 23:00 07:00 Intake Total 400 ml Output Total 600 ml Balance -200 ml Exam GENERAL: Well-nourished well-developed lady comfortable at rest no acute distress VITAL SIGNS: per chart NECK: Supple. No JVD or lymphadenopathy. CARDIAC EXAM: S1, S2. No added sounds or murmurs. CHEST: Diminished air entry right lung. ABDOMEN: Soft, nontender. No guarding or rebound. EXTREMITIES: No cyanosis, clubbing or edema. NEUROLOGIC: Generalized weakness. No focal deficits. Results/Medications Result Diagram: 02/16/1765402/16/17654 Results 24 hrs Chest x-ray Moderate right pleural effusion with volume loss Laboratory Tests Test 02/16/17 03:28 02/16/17 06:55 White Blood Count 5.0 4.6 L Red Blood Count 3.23 L 2.93 L Hemoglobin 10.6 L 9.7 L Hematocrit 30.9 L 28.2 L Mean Corpuscular Volume 95.7 96.2 Mean Corpuscular Hemoglobin 32.8 33.1 H Mean Corpuscular Hemoglobin Concent 34.3 34.4 Red Cell Distribution Width 13.3 13.4 Platelet Count 227 229 Mean Platelet Volume 11.4 H 10.9 H Neutrophils % 74.7 72.6 Lymphocytes % 6.4 L 6.8 L Monocytes % 15.5 H 15.5 H Eosinophils % 2.2 3.3 Basophils % 0.6 0.9 Nucleated Red Blood Cells % 0.0 0.0 Neutrophils # 3.7 3.3 Lymphocytes # 0.3 L 0.3 L Monocytes # 0.8 0.7 Eosinophils # 0.1 0.2 Basophils # 0.0 0.0 Nucleated Red Blood Cells # 0.0 0.0 Sodium Level 130 L 129 L Potassium Level 3.8 3.4 L Chloride Level 88 L 93 L Carbon Dioxide Level 33 H 29 Anion Gap 13 10 Blood Urea Nitrogen 49 #H 48 H Creatinine 2.50 #H 2.32 H Glucose Level 124 124 Calcium Level 8.2 L 7.9 L Troponin I 0.021 Phosphorus Level 4.9 Magnesium Level 1.7 Albumin 3.0 L Medications Current Medications Ondansetron HCl (Zofran Inj) 4 mg Q6H PRN IV NAUSEA AND/OR VOMITING Last administered on 02/15/17 18:39; Admin Dose 4 MG; Start 02/12/17 at 14:00 Acetaminophen (Tylenol Tab) 650 mg Q6H PRN PO PAIN LEVEL 1-3 OR FEVER; Start 02/12/17 at 14:00 Oxycodone/ Acetaminophen (Percocet (5/ 325)) 1 tab Q6H PRN PO SEVERE PAIN LEVEL 7-10 Last administered on 02/15/17 16:42; Admin Dose 1 TAB; Start 02/12 at 14:00 Bisacodyl (Dulcolax) 5 mg DAILY PRN PO CONSTIPATION; Start 02/12/17 at 14:00 Pantoprazole (Protonix Tab) 40 mg DAILY@06 PO Last administered on 02/15/17 05:48; Admin Dose 40 MG; Start 02/13/17 at 06:00 Aspirin (Halfprin) 81 mg DAILY PO Last administered on 02/16/17 09:51; Admin Dose 81 MG; Start 02/13/17 at 09:00 Atorvastatin Calcium (Lipitor) 20 mg HS PO Last administered on 02/15/17 21: 50; Admin Dose 20 MG; Start 02/12/17 at 21:00 Lisinopril (Zestril) 2.5 mg DAILY PO Last administered on 02/15/17 08:32; Admin Dose 2.5 MG; Start 02/14/17 at 09:00 Carvedilol (Coreg) 6.25 mg BID PO Last administered on 02/15/17 21:51; Admin Dose 6.25 MG; Start 02/14/17 at 21:00 Guaifenesin/ Dextromethorphan 5 ml 5 ml Q4H PRN PO cough; Start 02/15/17 at 20 :00 Norepinephrine/ Dextrose (Levophed/D5W) 500 ml @ 1.87 mls/hr TITRATE IV Last administered on 02/16/17t 07:04; Admin Dose 9.35 MLS/HR; Start 02/16/17 at 06: 00 Assessment/Plan Chief Complaint/Hosp Course Assessment 1. Recurrent large pleural effusion status post Pleurx catheter placement 2. Metastatic breast cancer 3. Hypoxemic respiratory failure 4. Renal insufficiency 5. Septic shock possible relative adrenal insufficiency. Plan 1. Drain Pleurx catheter every third day. 2. Continue vasopressors and titrate to MAP of 65 3. Decrease FiO2 as tolerated 4. Check random cortisol level Discussed with family at bedside. Problems: STAN MAC MD, [facility] Feb 16, 2017 10:43
--- NOTE | 2017-02-16 13:31 | RADRPT ---
PROCEDURE: XR Chest. CLINICAL INDICATION: PICC line placement. TECHNIQUE: Portable supine. COMPARISON: 02/16/2017. FINDINGS: Left upper extremity PICC line tip courses into the internal jugular vein and must be repositioned. Left-sided multichamber cardiac pacemaker is again demonstrated. There is dense opacification of th e right lung by the combination of pleural effusion with right mid lung and upper lobe air space dis ease. Small left-sided pleural effusion with left base atelectasis is again demonstrated. Right axil jenni dissection clips. Healed fractures of the right lateral sixth through eighth ribs are noted. IMPRESSION: 1. Left upper extremity PICC line tip coursing into the internal jugular vein. This must be reposit ioned. 2. Unchanged dense opacity right lung a combination of pleural effusion with right mid lung and upp er lobe air space disease. 3. Small left-sided pleural effusion with left lower lobe subsegmental atelectasis. RPTAT: HRSR Physician Regla Date Time Electronically viewed and signed by Kelsey Collins Physician on 02/16/2017 13:31 RR/
--- NOTE | 2017-02-16 13:34 | RADRPT ---
PROCEDURE: XR Chest. CLINICAL INDICATION: PICC placement. TECHNIQUE: Chest x-ray, single view. COMPARISON: 02/16/2017 at 0300 hours. FINDINGS: A left upper extremity PICC is in place and terminates within the mid portion of the left subclavian vein. Aortic arch atherosclerotic calcification is observed. A biventricular cardiac conduction dev ice is in place with a pacemaker lead within the right atrium. A chest tube is in place within the l ower left thorax. There is no visible pneumothorax. Opacification of the right chest with central ae ration of the lung is observed and unchanged. Surgical clips are seen within the right axilla. IMPRESSION: Left upper extremity PICC in place terminating within the mid portion of the left subclavian vein. RPTAT: AAQQ .Aga Miller MD, Date Time Electronically viewed and signed by .Aga Miller MD, on 02/16/2017 13:34 .T/
[2017-02-16] MEDS ORDERED: SOD CHLORIDE 0.9% 100 ML ONE (13:38)
[2017-02-16] MEDS ORDERED: POTASSIUM CHLORIDE (SR) 20 MEQ TAB PO STA (14:10)
--- NOTE | 2017-02-16 14:22 | RADRPT ---
PROCEDURE: US guidance for PICC line CLINICAL INDICATION: PICC line placement TECHNIQUE: Multiple real-time images were acquired of the patient's arm utilizing a high resolutio n transducer. This was performed by the PICC line nurse for venous access. COMPARISON: None FINDINGS: Ultrasound guidance for PICC line placement. IMPRESSION: Ultrasound guidance for PICC line placement. RPTAT: AA .Dandy Biswas MD, MD Date Time Electronically viewed and signed by .Dandy Biswas MD, on 02/16/2017 14:22 .S/
[2017-02-16] MEDS ORDERED: MAGNESIUM SULFATE 2 GM/50 ML 50 ML IVPB ONE (14:30)
--- NOTE | 2017-02-16 16:09 | PN ---
Date/Time of Note Date/Time of Note DATE: 02/16/17 TIME: 16:01 Assessment/Plan VTE Prophylaxis VTE Prophylaxis Intervention: SCD's, other Lines/Catheters IV Catheter Type (from [facility]): Mid Line Urinary Cath still in place: No (DC by Nightshift RN) Assessment/Plan Assessment/Plan 1. Hypotension - Patient transferred to ICU overnight due to hypotension that was not improving after fluid boluses - Holding all antihypertensive medications - Currently on pressor support and will wean to maintain MAP >60 - IVF hydration 2. Bilateral pleural effusions, likely malignant - Pleurx cath in place and denies any discomfort at site of insertion. Will need to set up HH for frequent drainage upon discharge - Pulmonology on board and drain Pleurx every 3 days - Continue on NC and wean as tolerating to keep saturations >90% 3. Leukopenia- improving - stable, trending upward 4. Cardiomyopathy, congestive heart failure, acute on chronic ejection fraction 45% - Cardiology on board and recommendations appreciated. - Continue statin and aspirin. All other BP meds on hold - ICD battery change with Dr. Pineda once stable 5. 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 Tay, oncology - Palliative on board 6. Anemia of chronic disease - currently stable - will continue monitoring 7. Acute kidney injury - Cr worsened and nephrology consulted. Appreciate recommendations and assistance 8. Disposition - Continue monitoring in ICU >30 minutes of critical care time was spent with patient and family at bedside. All concerns were addressed and questions answered Subjective 24 Hr Interval Summary Free Text/Dictation Patient states feeling better since last night but still experiencing dry cough. Patient was found to be hypotensive yesterday after Coreg given and after IVF boluses was still hypotensive and transferred to ICU. Currently denies any new complaints. Exam/Review of Systems Vital Signs Vitals Vital Signs Date Time Temp Pulse Resp B/P Pulse Ox O2 Delivery O2 Flow Rate FiO2 02/16/17 13:25 94 24 93 Nasal Cannula 3.0 02/16/17 10:45 86/46 02/16/17 06:33 98.5 Intake and Output 02/15/17 02/15/17 02/16/17 15:00 23:00 07:00 Intake Total 400 ml Output Total 600 ml Balance -200 ml Exam Constitutional: NAD, occasional bouts of coughing Head: atraumatic, normocephalic Eyes: EOMI, PERRL Respiratory: diminished breath sounds bases, No crackles/rales, No wheezing. pleurx cath in place Cardiovascular: nl rhythm, systolic murmurs Gastrointestinal: non-tender, soft, No distended, No rebound or guarding Musculoskeletal: nl extremities to inspection Extremities: normal pulses Neurological: CONSTRUCTION ENGINEERING MANAGER II-XII intact, nl mental status Skin: nl turgor Results Result Diagram: 02/16/17 0655 02/16/17 0655 Results 24 hrs Laboratory Tests Test 02/16/17 03:28 02/16/17 06:55 White Blood Count 5.0 4.6 L Red Blood Count 3.23 L 2.93 L Hemoglobin 10.6 L 9.7 L Hematocrit 30.9 L 28.2 L Mean Corpuscular Volume 95.7 96.2 Mean Corpuscular Hemoglobin 32.8 33.1 H Mean Corpuscular Hemoglobin Concent 34.3 34.4 Red Cell Distribution Width 13.3 13.4 Platelet Count 227 229 Mean Platelet Volume 11.4 H 10.9 H Neutrophils % 74.7 72.6 Lymphocytes % 6.4 L 6.8 L Monocytes % 15.5 H 15.5 H Eosinophils % 2.2 3.3 Basophils % 0.6 0.9 Nucleated Red Blood Cells % 0.0 0.0 Neutrophils # 3.7 3.3 Lymphocytes # 0.3 L 0.3 L Monocytes # 0.8 0.7 Eosinophils # 0.1 0.2 Basophils # 0.0 0.0 Nucleated Red Blood Cells # 0.0 0.0 Sodium Level 130 L 129 L Potassium Level 3.8 3.4 L Chloride Level 88 L 93 L Carbon Dioxide Level 33 H 29 Anion Gap 13 10 Blood Urea Nitrogen 49 #H 48 H Creatinine 2.50 #H 2.32 H Glucose Level 124 124 Calcium Level 8.2 L 7.9 L Troponin I 0.021 Phosphorus Level 4.9 Magnesium Level 1.7 Albumin 3.0 L Medications Medications Current Medications Ondansetron HCl (Zofran Inj) 4 mg Q6H PRN IV NAUSEA AND/OR VOMITING Last administered on 02/15/17t 18:39; Admin Dose 4 MG; Start 02/12/17 at 14:00 Acetaminophen (Tylenol Tab) 650 mg Q6H PRN PO PAIN LEVEL 1-3 OR FEVER; Start 02/12/17 at 14:00 Oxycodone/ Acetaminophen (Percocet (5/ 325)) 1 tab Q6H PRN PO SEVERE PAIN LEVEL 7-10 Last administered on 02/15/17 16:42; Admin Dose 1 TAB; Start 02/12 at 14:00 Bisacodyl (Dulcolax) 5 mg DAILY PRN PO CONSTIPATION; Start 02/12/17 at 14:00 Pantoprazole (Protonix Tab) 40 mg DAILY@06 PO Last administered on 02/15/17 05:48; Admin Dose 40 MG; Start 02/13/17 at 06:00 Aspirin (Halfprin) 81 mg DAILY PO Last administered on 02/16/17 09:51; Admin Dose 81 MG; Start 02/13/17 at 09:00 Atorvastatin Calcium (Lipitor) 20 mg HS PO Last administered on 02/15/17 21: 50; Admin Dose 20 MG; Start 02/12/17 at 21:00 Lisinopril (Zestril) 2.5 mg DAILY PO Last administered on 02/15/17 08:32; Admin Dose 2.5 MG; Start 02/14/17 at 09:00 Carvedilol (Coreg) 6.25 mg BID PO Last administered on 02/15/17 21:51; Admin Dose 6.25 MG; Start 02/14/17 at 21:00 Guaifenesin/ Dextromethorphan 5 ml 5 ml Q4H PRN PO cough; Start 02/15/17 at 20 :00 Norepinephrine/ Dextrose (Levophed/D5W) 500 ml @ 1.87 mls/hr TITRATE IV Last administered on 02/16/17 07:04; Admin Dose 9.35 MLS/HR; Start 02/16/17 at 06: 00 IV Flush 10 ml 10 ml PRN PRN IV IV PROTOCOL; Start 02/16/17 at 13:00 Magnesium Sulfate (Magnesium Sulfate 2 Gm/50 ml) 50 ml @ 25 mls/hr ONCE ONCE IVPB Last administered on 02/16/17 15:38; Admin Dose 25 MLS/HR; Start at 14:30; Stop 02/16/17 at 16:29 GARY CROSS MD Feb 16, 2017 16:09
--- NOTE | 2017-02-16 18:31 | RADRPT ---
Vent Rate: 87 bpm RR Interval: 0 msec AR Interval: 120 msec QRS Duration: 134 msec QT Interval: 482 msec QTC Interval: 580 msec P-R-T [place]: 66 - 0 - 61 degrees Electronic ventricular pacemaker Electronically Signed By: Ralf Beal [id number]
--- NOTE | 2017-02-16 18:31 | RADRPT ---
Vent Rate: 87 bpm RR Interval: 0 msec MN Interval: 120 msec QRS Duration: 134 msec QT Interval: 482 msec QTC Interval: 580 msec P-R-T [place]: 66 - 0 - 61 degrees Electronic ventricular pacemaker Electronically Signed By: Ralf Beal [id number]
--- NOTE | 2017-02-16 18:31 | RADRPT ---
Vent Rate: 87 bpm RR Interval: 0 msec ME Interval: 120 msec QRS Duration: 134 msec QT Interval: 482 msec QTC Interval: 580 msec P-R-T [place]: 66 - 0 - 61 degrees Electronic ventricular pacemaker Electronically Signed By: Ralf Beal [id number]
[2017-02-16] MEDS: SOD CHLORIDE 0.9% 1,000 ML IV SCH (18:37)
[2017-02-16] MEDS: ATORVASTATIN 20 MG TAB PO SCH (20:45)
[2017-02-16] MEDS: CEFTRIAXONE 1 GM INJ IM SCH (20:47)
[2017-02-17] VITALS (79 sets, daily range): BP systolic 88–168; BP diastolic 42–92; PULSE 88–121; RESP 17–45
--- NOTE | 2017-02-17 01:20 | CONS ---
DATE OF ADMISSION: 02/12/2017 DATE OF CONSULTATION: TYPE OF CONSULTATION: Renal. Thank you, Dr. Lomeli, for asking me to participate in medical management of this patient. REASON FOR CONSULTATION: Renal failure. HISTORY OF PRESENT ILLNESS: This 81-year-old female is being seen now because of decreasing renal f unction over the last several days. The patient is now in the intensive care unit. She was transfe rred here last night because of hypotension. The patient has been in and out of the hospital over t he last 2 weeks. She was discharged from the hospital on 02/09/2017 after being admitted for shortn ess of breath and found to have a large left pleural effusion. The patient has a history of metasta tic breast cancer. The patient was then readmitted on 02/12/2017 after she presented to the emergen cy room with shortness of breath and chest pain. The patient was found to have a large right pleura l effusion. She does have a left Pleurx tube which has been drained periodically and her left lung pleural effusion has decreased. The patient has had an elevated serum creatinine. When she left on 02/09/2017, her serum creatinine was 1.23. It has risen since then and today it was 2.32. A serum creatinine was done early this morning and was higher at 2.5. The patient has received intravenous saline overnight and is currently on an IV normal saline drip. She has also been on Levophed to morales pport her blood pressure. I did have a discussion with the patient's son who seems to be familiar w ith her history. He says that the patient did not have a history of kidney disease prior to her rec ent treatment with diuretics. The patient is awake and alert but is [place]ish speaking. Her daughter -in-law is in attendance and is able to translate some. The patient also has a cardiomyopathy and a left-sided pacemaker AICD. The patient did have a renal ultrasound done on 02/01/2017 during her l ast admission. That renal ultrasound showed a mild right hydronephrosis, small kidneys, but normal cortex. PAST MEDICAL HISTORY: Remarkable for: 1. Metastatic left breast cancer. 2. Status post left mastectomy with axillary node dissection. 3. Bilateral pleural effusions. 4. Cardiomyopathy with acute and chronic congestive heart failure. 5. Leukopenia. 6. Hyponatremia. 7. Anemia of chronic disease. 8. Hyperlipidemia. 9. Hypertension. PAST SURGICAL HISTORY: Left-sided mastectomy. PHYSICAL EXAMINATION: GENERAL: At this time reveals an ill-appearing female in no apparent distress. She is awake and al ert and answers questions from her [id number]. VITAL SIGNS: Pulse is 84, respiration rate 17, blood pressure 108/67, O2 saturation 97% on 4 liters nasal cannula. HEENT: Head normocephalic. Eyes: Extraocular muscles intact. NOSE AND MOUTH: Normal. NECK: Supple. No neck vein distention. LUNGS: Diminished breath sounds at both bases. CHEST: There is a pacemaker ICD in the left upper chest, status post left mastectomy. HEART: Regular rhythm. No murmurs, gallops or rubs. ABDOMEN: Soft, nontender, no masses or megaly. EXTREMITIES: No peripheral edema. LABORATORY TESTS: White blood count 4600, hemoglobin 9.7, hematocrit 28.3. Sodium 129, potassium 3 .4, chloride 93, BUN 48, creatinine 2.32, calcium 7.9, albumin 3.0. Urinalysis: 3+ leukocyte watson ase, 165 WBCs, moderate bacteria. Urine protein/creatinine ratio of . Urine sodium low at 19. IMPRESSION: 1. Acute on chronic renal failure. This patient presents now with worsening renal function over e last several days. She has been on diuretics. They were stopped yesterday. Her blood pressure d ropped during the night and she was transferred to the ICU after receiving boluses of intravenous fl uid. She is now on a Levophed drip to support her blood pressure. I suspect that the patient has p rerenal azotemia as her urine sodium is low. She does have a slightly elevated urine protein creati nine ratio which could indicate some underlying chronic kidney disease. The patient has a cardiomyo des, which would also contribute to the prerenal azotemia. 2. Metastatic breast cancer with bilateral pleural effusions. 3. Cardiomyopathy. 4. History of hypertension. 5. Anemia of chronic disease. 6. Urinary tract infection. PLAN: 1. I agree with current management of cautiously giving the patient normal saline to support her bl ood pressure and try and increase renal perfusion. She is also on a Levophed drip which is being ti trated and will be tapered as her blood pressure increases. 2. Repeat renal ultrasound to rule out obstruction as she did have a mild right hydronephrosis on h er previous renal ultrasound. 3. Check urine for urine eosinophils to rule out acute drug-induced interstitial nephritis. 4. Antibiotics to treat urinary tract infection. Dictated By: WILLIAM PLUMMER MD, ND/TAURUS Conf#: [id number] DID#: [id number]
[2017-02-17] MEDS: PANTOPRAZOLE (EC) 40 MG TAB PO SCH (05:41)
[2017-02-17] MEDS: SOD CHLORIDE 0.9% 1,000 ML IV SCH (07:00)
[2017-02-17] MEDS: ALBUTEROL/IPRATROPIUM (NEB) 3 ML AMP HHN SCH ×3 (08:20→19:27)
[2017-02-17] MEDS: ASPIRIN (EC) 81 MG TAB PO SCH (09:00)
--- NOTE | 2017-02-17 09:12 | RADRPT ---
PROCEDURE: XR Chest. CLINICAL INDICATION: Pneumonia, CHF TECHNIQUE: AP Portable chest. COMPARISON: PORT CHEST 02/16/2017; PORT CHEST 02/16/2017; CR CHEST 05/07/2014 FINDINGS: AICD device overlies the left chest. There are multiple right axillary clips. Large right pleural effusion, atelectasis and ground-glass opacification of the right lung are again demonstrated. Interval increase left basilar pleural parenchymal opacity. No pneumothorax is seen. The cardiac borders and hemidiaphragms are obscured. The aortic arch is mildly calcified. There ar e old right rib fractures. IMPRESSION: Unchanged large right pleural effusion . Increase small left pleural effusion and atelectasis. Physician Lesley Date Time Electronically viewed and signed by Dusty Butt Physician on 02/17/2017 09:12 CS/
--- NOTE | 2017-02-17 09:16 | CONS ---
Date/Time of Note Date/Time of Note DATE: 02/17/17 TIME: 09:05 Assessment/Plan Assessment/Plan Chief Complaint/Hosp Course 1. Acute renal failure superimposed on chronic kidney disease. The patient's renal function today is improved. She is nonoliguric and was in positive fluid balance yesterday. She is receiving IV fluids. She says that she feels better today. A renal ultrasound was done this morning which showed a mild left hydronephrosis. I would continue cautious IV fluids in view of her bilateral pleural effusions. Will continue fluids as long as renal function continues to improve. Levophed will be tapered off as tolerated. 2. Metastatic breast cancer 3. Cardiomyopathy 4. Bilateral pleural effusions with Pleurx tube in the left chest . 5. Anemia Problems: Consultation Date/Type/Reason Admit Date/Time Feb 12, 2017 at 09:06 Initial Consult Date Type of Consultation: Pulmonary Referring Provider: GARY CROSS MD 24 HR Interval Summary Free Text/Dictation This patient is in the intensive care unit. She is awake and responsive. She is getting levo fed drip to support her blood pressure. Constitutional: no complaints, poor po Exam/Review of Systems Vital Signs Vitals Vital Signs Date Time Temp Pulse Resp B/P Pulse Ox O2 Delivery O2 Flow Rate FiO2 02/17/17 08:30 100 25 100/63 93 Nasal Cannula 02/17/17 08:22 3.0 02/17/17 08:00 98.7 02/17/17 04:13 31 Intake and Output 02/16/17 02/16/17 02/17/17 15:00 23:00 07:00 Intake Total 112.47 ml 955.99 ml 543.9 ml Output Total 200 ml 930 ml 250 ml Balance -87.53 ml 25.99 ml 293.9 ml Exam Constitutional: alert, frail, oriented Respiratory: congested cough, diminished breath sounds Cardiovascular: regular rate and rhythm Gastrointestinal: non-tender, soft Musculoskeletal: nl extremities to inspection Results Result Diagram: 02/17/17 0340 02/17/17 0340 Results 24 hrs Laboratory Tests Test 02/16/17 16:30 02/17/17 03:40 Urine Color YELLOW Urine Clarity SLIGHTLY CLOUDY A Urine pH 6.0 Urine Specific [place] 1.015 Urine Ketones NEGATIVE Urine Nitrite NEGATIVE Urine Bilirubin NEGATIVE Urine Urobilinogen NEGATIVE Urine Leukocyte Esterase 3+ H Urine Microscopic RBC 3 Urine Microscopic WBC 165 H Urine Squamous Epithelial Cells FEW Urine Bacteria MODERATE Urine Eosinophils % 0.0 Urine Hemoglobin 2+ H Urine Random Creatinine 114.98 Urine Random Sodium 19 L Urine Protein/Creatinine Ratio 0.35 Urine Glucose NEGATIVE Urine Total Protein 41.0 H White Blood Count 4.9 Red Blood Count 2.94 L Hemoglobin 9.5 L Hematocrit 28.6 L Mean Corpuscular Volume 97.3 Mean Corpuscular Hemoglobin 32.3 Mean Corpuscular Hemoglobin Concent 33.2 Red Cell Distribution Width 13.5 Platelet Count 235 Mean Platelet Volume 11.2 H Neutrophils % 71.4 Lymphocytes % 4.1 L Monocytes % 20.4 H Eosinophils % 2.7 Basophils % 0.6 Nucleated Red Blood Cells % 0.0 Neutrophils # 3.5 Lymphocytes # 0.2 L Monocytes # 1.0 H Eosinophils # 0.1 Basophils # 0.0 Nucleated Red Blood Cells # 0.0 Sodium Level 134 L Potassium Level 4.1 Chloride Level 96 L Carbon Dioxide Level 30 Anion Gap 12 Blood Urea Nitrogen 37 #H Creatinine 1.54 H Glucose Level 139 Calcium Level 8.0 L Phosphorus Level 3.6 Magnesium Level 2.3 Random Cortisol 17.8 Medications Medications Current Medications Ondansetron HCl (Zofran Inj) 4 mg Q6H PRN IV NAUSEA AND/OR VOMITING Last administered on 02/15/17 18:39; Admin Dose 4 MG; Start 02/12/17 at 14:00 Acetaminophen (Tylenol Tab) 650 mg Q6H PRN PO PAIN LEVEL 1-3 OR FEVER; Start 02/12/17 at 14:00 Oxycodone/ Acetaminophen (Percocet (5/ 325)) 1 tab Q6H PRN PO SEVERE PAIN LEVEL 7-10 Last administered on 02/15/17 16:42; Admin Dose 1 TAB; Start 02/12 at 14:00 Bisacodyl (Dulcolax) 5 mg DAILY PRN PO CONSTIPATION; Start 02/12/17 at 14:00 Pantoprazole (Protonix Tab) 40 mg DAILY@06 PO Last administered on 02/17/17 05:41; Admin Dose 40 MG; Start 02/13/17 at 06:00 Aspirin (Halfprin) 81 mg DAILY PO Last administered on 02/16/17 09:51; Admin Dose 81 MG; Start 02/13/17 at 09:00 Atorvastatin Calcium (Lipitor) 20 mg HS PO Last administered on 02/16/17 20: 45; Admin Dose 20 MG; Start 02/12/17 at 21:00 Carvedilol (Coreg) 6.25 mg BID PO Last administered on 02/16/17 20:46; Admin Dose 6.25 MG; Start 02/14/17 at 21:00 Guaifenesin/ Dextromethorphan 5 ml 5 ml Q4H PRN PO cough; Start 02/15/17 at 20 :00 Norepinephrine/ Dextrose (Levophed/D5W) 500 ml @ 1.87 mls/hr TITRATE IV Last administered on 02/16/17 07:04; Admin Dose 9.35 MLS/HR; Start 02/16/17 at 06: 00 IV Flush 10 ml 10 ml PRN PRN IV IV PROTOCOL; Start 02/16/17 at 13:00 Sodium Chloride (NS) 1,000 ml @ 75 mls/hr [id number] IV Last administered on 18:37; Admin Dose 75 MLS/HR; Start 02/16/17 at 17:30 Ceftriaxone Sodium (Rocephin) 1 gm Q24H IM Last administered on 02/16/17 20: 47; Admin Dose 1 GM; Start 02/16/17 at 21:00 WILLIAM PLUMMER MD Feb 17, 2017 09:16
--- NOTE | 2017-02-17 09:18 | CONS ---
Date/Time of Note Date/Time of Note DATE: 02/17/17 TIME: 09:16 Assessment/Plan Assessment/Plan Additional Assessment/Plan Assessment and recommendations; 1. Patient admitted with recurrent bilateral pleural effusions, status post left Pleurx catheter placement. Chest x-ray from yesterday shows marked left- sided improvement however the patient has no significant right pleural effusion. Most likely malignant because of extensive metastatic breast cancer. 2. Chronic renal insufficiency. 3. History of cardiac arrhythmia. Continue current treatment. Patient would benefit from placement of right- sided Pleurx catheter now. Consultation Date/Type/Reason Admit Date/Time Feb 12, 2017 at 09:06 Type of Consultation: Pulmonary Referring Provider: GARY CROSS MD 24 HR Interval Summary Free Text/Dictation Patient's condition has improved. She was transferred to ICU because of hypotension. Currently on very low-dose Levophed drip. Patient remains awake and alert. General exam; elderly woman, awake and alert. Currently in no distress. Exam/Review of Systems Vital Signs Vitals Vital Signs Date Time Temp Pulse Resp B/P Pulse Ox O2 Delivery O2 Flow Rate FiO2 02/17/17 08:30 100 25 100/63 93 Nasal Cannula 02/17/17 08:22 3.0 02/17/17 08:00 98.7 02/17/17 04:13 31 Intake and Output 02/16/17 02/16/17 02/17/17 15:00 23:00 07:00 Intake Total 112.47 ml 955.99 ml 543.9 ml Output Total 200 ml 930 ml 250 ml Balance -87.53 ml 25.99 ml 293.9 ml Exam HEENT exam; supple neck, no JVD. No lymphadenopathy. Midline trachea. No thyromegaly. Patient has multiple carious teeth. Pupils are small bilaterally. Chest exam; diminished breath sounds right lower lobe. Left lung is clear to auscultation. There is a left Pleurx catheter in place. S1-S2 audible, no murmurs. Pacemaker in left chest wall. Abdomen exam; soft, nontender. No organomegaly. Bowel sounds audible. Extremity exam; no peripheral edema. METEOROLOGICAL OBSERVER exam; no focal deficit. Results Result Diagram: 02/17/17 0340 02/17/17 0340 Results 24 hrs Laboratory Tests Test 02/16/17 16:30 02/17/17 03:40 Urine Color YELLOW Urine Clarity SLIGHTLY CLOUDY A Urine pH 6.0 Urine Specific [place] 1.015 Urine Ketones NEGATIVE Urine Nitrite NEGATIVE Urine Bilirubin NEGATIVE Urine Urobilinogen NEGATIVE Urine Leukocyte Esterase 3+ H Urine Microscopic RBC 3 Urine Microscopic WBC 165 H Urine Squamous Epithelial Cells FEW Urine Bacteria MODERATE Urine Eosinophils % 0.0 Urine Hemoglobin 2+ H Urine Random Creatinine 114.98 Urine Random Sodium 19 L Urine Protein/Creatinine Ratio 0.35 Urine Glucose NEGATIVE Urine Total Protein 41.0 H White Blood Count 4.9 Red Blood Count 2.94 L Hemoglobin 9.5 L Hematocrit 28.6 L Mean Corpuscular Volume 97.3 Mean Corpuscular Hemoglobin 32.3 Mean Corpuscular Hemoglobin Concent 33.2 Red Cell Distribution Width 13.5 Platelet Count 235 Mean Platelet Volume 11.2 H Neutrophils % 71.4 Lymphocytes % 4.1 L Monocytes % 20.4 H Eosinophils % 2.7 Basophils % 0.6 Nucleated Red Blood Cells % 0.0 Neutrophils # 3.5 Lymphocytes # 0.2 L Monocytes # 1.0 H Eosinophils # 0.1 Basophils # 0.0 Nucleated Red Blood Cells # 0.0 Sodium Level 134 L Potassium Level 4.1 Chloride Level 96 L Carbon Dioxide Level 30 Anion Gap 12 Blood Urea Nitrogen 37 #H Creatinine 1.54 H Glucose Level 139 Calcium Level 8.0 L Phosphorus Level 3.6 Magnesium Level 2.3 Random Cortisol 17.8 Medications Medications Current Medications Ondansetron HCl (Zofran Inj) 4 mg Q6H PRN IV NAUSEA AND/OR VOMITING Last administered on 02/15/17 18:39; Admin Dose 4 MG; Start 02/12/17 at 14:00 Acetaminophen (Tylenol Tab) 650 mg Q6H PRN PO PAIN LEVEL 1-3 OR FEVER; Start 02/12/17 at 14:00 Oxycodone/ Acetaminophen (Percocet (5/ 325)) 1 tab Q6H PRN PO SEVERE PAIN LEVEL 7-10 Last administered on 02/15/17 16:42; Admin Dose 1 TAB; Start 02/12 at 14:00 Bisacodyl (Dulcolax) 5 mg DAILY PRN PO CONSTIPATION; Start 02/12/17 at 14:00 Pantoprazole (Protonix Tab) 40 mg DAILY@06 PO Last administered on 02/17/17 05:41; Admin Dose 40 MG; Start 02/13/17 at 06:00 Aspirin (Halfprin) 81 mg DAILY PO Last administered on 02/16/17 09:51; Admin Dose 81 MG; Start 02/13/17 at 09:00 Atorvastatin Calcium (Lipitor) 20 mg HS PO Last administered on 02/16/17 20: 45; Admin Dose 20 MG; Start 02/12/17 at 21:00 Carvedilol (Coreg) 6.25 mg BID PO Last administered on 02/16/17 20:46; Admin Dose 6.25 MG; Start 02/14/17 at 21:00 Guaifenesin/ Dextromethorphan 5 ml 5 ml Q4H PRN PO cough; Start 02/15/17 at 20 :00 Norepinephrine/ Dextrose (Levophed/D5W) 500 ml @ 1.87 mls/hr TITRATE IV Last administered on 02/16/17 07:04; Admin Dose 9.35 MLS/HR; Start 02/16/17 at 06: 00 IV Flush 10 ml 10 ml PRN PRN IV IV PROTOCOL; Start 02/16/17 at 13:00 Sodium Chloride (NS) 1,000 ml @ 50 mls/hr Q20H IV Last administered on 18:37; Admin Dose 75 MLS/HR; Start 02/16/17 at 17:30 Ceftriaxone Sodium (Rocephin) 1 gm Q24H IM Last administered on 02/16/17 20: 47; Admin Dose 1 GM; Start 02/16/17 at 21:00 DAGOBERTO CAO Feb 17, 2017 09:18
--- NOTE | 2017-02-17 09:21 | RADRPT ---
PROCEDURE: Renal US. CLINICAL INDICATION: Renal dysfunction. TECHNIQUE: Multiple sonographic images of the kidneys and urinary bladder were obtained. The imag es were reviewed on a PACS workstation. COMPARISON: 02/01/2017. FINDINGS: The right kidney measures 9.0 cm. The left kidney measures 9.0 cm. There is no solid renal mass. There is a benign cyst in the upper left kidney measuring 2.5 cm in ma ximal dimension. There is mild right hydronephrosis. There is no left hydronephrosis. There is no renal calculus. Renal parenchymal thickness is normal bilaterally. Echogenicity is normal bilaterally. The perirenal regions are normal with no fluid collection or mass. The urinary bladder is unremarkable. IMPRESSION: 1. Benign left renal cyst measuring 2.5 cm. 2. Mild right hydronephrosis. 3. No left hydronephrosis. 4. Otherwise normal renal ultrasound. 5. No change from 02/01/2017. RPTAT: QQ .Amrit Eldridge MD, MD Date Time Electronically viewed and signed by .Amrit Eldridge MD, MD on 02/17/2017 09:20 .R/
--- NOTE | 2017-02-17 11:32 | CONS ---
Date/Time of Note Date/Time of Note DATE: 02/17/17 TIME: 11:28 Assessment/Plan Assessment/Plan Chief Complaint/Hosp Course IMP: 1.CHF-systolic acute on chronic 2. cardiomyopathy 3.ICD near EOL 4.Pleural effusion 5.Leukopenia 6.Met Breast CA 7. Hyponatremia-ongoing 8. Renal failure 9. Hypotension-improved of pressors Recc: -Tele -Hold lasix/ antihypertensives -Continue statin/ASA -ICD generator change by DR philip when stable -IVF hydration -consider checking blood cultures Problems: Consultation Date/Type/Reason Admit Date/Time Feb 12, 2017 at 09:06 Initial Consult Date 02/12/2017 Type of Consultation: cardiology Reason for Consultation hypotension Referring Provider: GARY CROSS MD Exam/Review of Systems Vital Signs Vitals Vital Signs Date Time Temp Pulse Resp B/P Pulse Ox O2 Delivery O2 Flow Rate FiO2 02/17/17 08:30 100 25 100/63 93 Nasal Cannula 02/17/17 08:22 3.0 02/17/17 08:00 98.7 02/17/17 04:13 31 Intake and Output 02/16/17 02/16/17 02/17/17 15:00 23:00 07:00 Intake Total 112.47 ml 955.99 ml 543.9 ml Output Total 200 ml 930 ml 250 ml Balance -87.53 ml 25.99 ml 293.9 ml Exam Review of Systems: CONSTITUTIONAL: No fevers, chills. PULMONARY: No sob CARDIOVASCULAR: No chest pain/palpitations GASTROINTESTINAL: No nausea/vomiting. GENITOURINARY: No hematuria/dysuria. MUSCULOSKELETAL: No myagias/arthalgias. PSYCHIATRIC: The patient denies depression. NEUROLOGIC: No weakness Constitutional: alert Psych: no complaints Head: normocephalic ENMT: mucosa pink and moist Neck: supple Respiratory: diminished breath sounds Cardiovascular: regular rate and rhythm Gastrointestinal: non-tender, soft Musculoskeletal: muscle tone Extremities: edema Neurological: other (No focal deficits) Results Result Diagram: 02/17/17 0340 02/17/17 0340 Results 24 hrs Laboratory Tests Test 02/16/17 16:30 02/17/17 03:40 Urine Color YELLOW Urine Clarity SLIGHTLY CLOUDY A Urine pH 6.0 Urine Specific [place] 1.015 Urine Ketones NEGATIVE Urine Nitrite NEGATIVE Urine Bilirubin NEGATIVE Urine Urobilinogen NEGATIVE Urine Leukocyte Esterase 3+ H Urine Microscopic RBC 3 Urine Microscopic WBC 165 H Urine Squamous Epithelial Cells FEW Urine Bacteria MODERATE Urine Eosinophils % 0.0 Urine Hemoglobin 2+ H Urine Random Creatinine 114.98 Urine Random Sodium 19 L Urine Protein/Creatinine Ratio 0.35 Urine Glucose NEGATIVE Urine Total Protein 41.0 H White Blood Count 4.9 Red Blood Count 2.94 L Hemoglobin 9.5 L Hematocrit 28.6 L Mean Corpuscular Volume 97.3 Mean Corpuscular Hemoglobin 32.3 Mean Corpuscular Hemoglobin Concent 33.2 Red Cell Distribution Width 13.5 Platelet Count 235 Mean Platelet Volume 11.2 H Neutrophils % 71.4 Lymphocytes % 4.1 L Monocytes % 20.4 H Eosinophils % 2.7 Basophils % 0.6 Nucleated Red Blood Cells % 0.0 Neutrophils # 3.5 Lymphocytes # 0.2 L Monocytes # 1.0 H Eosinophils # 0.1 Basophils # 0.0 Nucleated Red Blood Cells # 0.0 Sodium Level 134 L Potassium Level 4.1 Chloride Level 96 L Carbon Dioxide Level 30 Anion Gap 12 Blood Urea Nitrogen 37 #H Creatinine 1.54 H Glucose Level 139 Calcium Level 8.0 L Phosphorus Level 3.6 Magnesium Level 2.3 Random Cortisol 17.8 Medications Medications Current Medications Ondansetron HCl (Zofran Inj) 4 mg Q6H PRN IV NAUSEA AND/OR VOMITING Last administered on 02/15/17 18:39; Admin Dose 4 MG; Start 02/12/17 at 14:00 Acetaminophen (Tylenol Tab) 650 mg Q6H PRN PO PAIN LEVEL 1-3 OR FEVER; Start 02/12/17 at 14:00 Oxycodone/ Acetaminophen (Percocet (5/ 325)) 1 tab Q6H PRN PO SEVERE PAIN LEVEL 7-10 Last administered on 02/15/17 16:42; Admin Dose 1 TAB; Start 02/12 at 14:00 Bisacodyl (Dulcolax) 5 mg DAILY PRN PO CONSTIPATION; Start 02/12/17 at 14:00 Pantoprazole (Protonix Tab) 40 mg DAILY@06 PO Last administered on 02/17/17 05:41; Admin Dose 40 MG; Start 02/13/17 at 06:00 Aspirin (Halfprin) 81 mg DAILY PO Last administered on 02/16/17 09:51; Admin Dose 81 MG; Start 02/13/17 at 09:00 Atorvastatin Calcium (Lipitor) 20 mg HS PO Last administered on 02/16/17 20: 45; Admin Dose 20 MG; Start 02/12/17 at 21:00 Carvedilol (Coreg) 6.25 mg BID PO Last administered on 02/16/17 20:46; Admin Dose 6.25 MG; Start 02/14/17 at 21:00 Guaifenesin/ Dextromethorphan 5 ml 5 ml Q4H PRN PO cough; Start 02/15/17 at 20 :00 Norepinephrine/ Dextrose (Levophed/D5W) 500 ml @ 1.87 mls/hr TITRATE IV Last administered on 02/16/17 07:04; Admin Dose 9.35 MLS/HR; Start 02/16/17 at 06: 00 IV Flush 10 ml 10 ml PRN PRN IV IV PROTOCOL; Start 02/16/17 at 13:00 Sodium Chloride (NS) 1,000 ml @ 50 mls/hr Q20H IV Last administered on 18:37; Admin Dose 75 MLS/HR; Start 02/16/17 at 17:30 Ceftriaxone Sodium (Rocephin) 1 gm Q24H IM Last administered on 02/16/17 20: 47; Admin Dose 1 GM; Start 02/16/17 at 21:00 ROXIE VELARDE Feb 17, 2017 11:32
--- NOTE | 2017-02-17 14:21 | PN ---
Date/Time of Note Date/Time of Note DATE: 02/17/17 TIME: 14:11 Assessment/Plan VTE Prophylaxis VTE Prophylaxis Intervention: SCD's Lines/Catheters IV Catheter Type (from Nrs): PICC Line Central line still needed: Yes Urinary Cath still in place: Yes Reason Cath still needed: other (indicate) (critically ill) Assessment/Plan Assessment/Plan 1. Hypotension - Improving this am and off Levophed - Holding all antihypertensive medications - gentle IVF hydration 2. Bilateral pleural effusions, likely malignant - L Pleurx cath in place and denies any discomfort at site of insertion. Repeat CXR showed improvement in L pleural effusion but large R pleural effusion. Will need R pleurx cath placement today - Pulmonology on board and drain Pleurx every 3 days - Continue on NC and wean as tolerating to keep saturations >90% 3. Leukopenia- improved - stable, trending upward 4. Cardiomyopathy, congestive heart failure, acute on chronic ejection fraction 45% - Cardiology on board and recommendations appreciated. - Continue statin and aspirin. All other BP meds on hold - ICD battery change with Dr. Pineda once stable 5. 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 Tay, oncology - Palliative on board 6. Anemia of chronic disease - currently stable - will continue monitoring 7. Acute kidney injury - Nephrology on board and consultation appreciated. - Renal function improving after IVF and will continue gentle hydration 8. Disposition - Continue monitoring in ICU and if BP remains stable can transfer to telemetry >40 minutes of critical care time was spent with patient. All concerns were addressed and questions answered Subjective 24 Hr Interval Summary Free Text/Dictation Patient still c/o SOB and repeat Xray this am showed large right pleural effusion warranting pleurx cath placement on right now. Patient agreeable to procedure. She has been weaned off Levophed and BP remains stable. No other acute events. Exam/Review of Systems Vital Signs Vitals Vital Signs Date Time Temp Pulse Resp B/P Pulse Ox O2 Delivery O2 Flow Rate FiO2 02/17/17 14:00 104 22 99/58 92 02/17/17 12:00 99.0 Nasal Cannula 02/17/17 08:22 3.0 02/17/17 04:13 31 Intake and Output 02/16/17 02/16/17 02/17/17 15:00 23:00 07:00 Intake Total 112.47 ml 955.99 ml 543.9 ml Output Total 200 ml 930 ml 250 ml Balance -87.53 ml 25.99 ml 293.9 ml Exam Constitutional: NAD, occasional bouts of coughing Head: atraumatic, normocephalic Eyes: EOMI, PERRL Respiratory: diminished breath sounds bases with diminished breath sounds right , No wheezing. L pleurx cath in place Cardiovascular: nl rhythm, systolic murmurs Gastrointestinal: non-tender, soft, No distended, No rebound or guarding Musculoskeletal: nl extremities to inspection Extremities: normal pulses Neurological: MASTIC WORKER II-XII intact, nl mental status Skin: nl turgor Results Result Diagram: 02/17/1733902/17/17 034 Results 24 hrs Laboratory Tests Test 02/16/17 16:30 02/17/17 03:40 Urine Color YELLOW Urine Clarity SLIGHTLY CLOUDY A Urine pH 6.0 Urine Specific [employer] 1.015 Urine Ketones NEGATIVE Urine Nitrite NEGATIVE Urine Bilirubin NEGATIVE Urine Urobilinogen NEGATIVE Urine Leukocyte Esterase 3+ H Urine Microscopic RBC 3 Urine Microscopic WBC 165 H Urine Squamous Epithelial Cells FEW Urine Bacteria MODERATE Urine Eosinophils % 0.0 Urine Hemoglobin 2+ H Urine Random Creatinine 114.98 Urine Random Sodium 19 L Urine Protein/Creatinine Ratio 0.35 Urine Glucose NEGATIVE Urine Total Protein 41.0 H White Blood Count 4.9 Red Blood Count 2.94 L Hemoglobin 9.5 L Hematocrit 28.6 L Mean Corpuscular Volume 97.3 Mean Corpuscular Hemoglobin 32.3 Mean Corpuscular Hemoglobin Concent 33.2 Red Cell Distribution Width 13.5 Platelet Count 235 Mean Platelet Volume 11.2 H Neutrophils % 71.4 Lymphocytes % 4.1 L Monocytes % 20.4 H Eosinophils % 2.7 Basophils % 0.6 Nucleated Red Blood Cells % 0.0 Neutrophils # 3.5 Lymphocytes # 0.2 L Monocytes # 1.0 H Eosinophils # 0.1 Basophils # 0.0 Nucleated Red Blood Cells # 0.0 Sodium Level 134 L Potassium Level 4.1 Chloride Level 96 L Carbon Dioxide Level 30 Anion Gap 12 Blood Urea Nitrogen 37 #H Creatinine 1.54 H Glucose Level 139 Calcium Level 8.0 L Phosphorus Level 3.6 Magnesium Level 2.3 Random Cortisol 17.8 Medications Medications Current Medications Ondansetron HCl (Zofran Inj) 4 mg Q6H PRN IV NAUSEA AND/OR VOMITING Last administered on 02/15/17 18:39; Admin Dose 4 MG; Start 02/12/17 at 14:00 Acetaminophen (Tylenol Tab) 650 mg Q6H PRN PO PAIN LEVEL 1-3 OR FEVER; Start 02/12/17 at 14:00 Oxycodone/ Acetaminophen (Percocet (5/ 325)) 1 tab Q6H PRN PO SEVERE PAIN LEVEL 7-10 Last administered on 02/15/17 16:42; Admin Dose 1 TAB; Start 02/12 at 14:00 Bisacodyl (Dulcolax) 5 mg DAILY PRN PO CONSTIPATION; Start 02/12/17 at 14:00 Pantoprazole (Protonix Tab) 40 mg DAILY@06 PO Last administered on 02/17/17 05:41; Admin Dose 40 MG; Start 02/13/17 at 06:00 Aspirin (Halfprin) 81 mg DAILY PO Last administered on 02/16/17 09:51; Admin Dose 81 MG; Start 02/13/17 at 09:00 Atorvastatin Calcium (Lipitor) 20 mg HS PO Last administered on 02/16/17 20: 45; Admin Dose 20 MG; Start 02/12/17 at 21:00 Guaifenesin/ Dextromethorphan 5 ml 5 ml Q4H PRN PO cough; Start 02/15/17 at 20 :00 Norepinephrine/ Dextrose (Levophed/D5W) 500 ml @ 1.87 mls/hr TITRATE IV Last administered on 02/16/17 07:04; Admin Dose 9.35 MLS/HR; Start 02/16/17 at 06: 00 IV Flush 10 ml 10 ml PRN PRN IV IV PROTOCOL; Start 02/16/17 at 13:00 Sodium Chloride (NS) 1,000 ml @ 50 mls/hr Q20H IV Last administered on 18:37; Admin Dose 75 MLS/HR; Start 02/16/17 at 17:30 Ceftriaxone Sodium (Rocephin) 1 gm Q24H IM Last administered on 02/16/17 20: 47; Admin Dose 1 GM; Start 02/16/17 at 21:00 Carvedilol (Coreg) 3.125 mg BID PO ; Start 02/17/17 at 21:00 GARY CROSS MD Feb 17, 2017 14:21
[2017-02-17] MEDS ORDERED: LIDOCAINE 1% (MDV) 20 ML INJ ONE (14:49)
[2017-02-17] MEDS ORDERED: SOD CHLORIDE 0.9% 250 ML ONE (15:37)
[2017-02-17] MEDS ORDERED: SOD CHLORIDE 0.9% 500 ML ONE (15:40)
[2017-02-17] MEDS ORDERED: MIDAZOLAM 1 MG/ML 2 ML INJ ONE (15:47)
--- NOTE | 2017-02-17 16:57 | RADRPT ---
PROCEDURE: Ultrasound guidance for placement of needle in right pleural space. CLINICAL INDICATION: Large right pleural effusion. TECHNIQUE: Prior to the procedure, informed consent was obtained. Risks including bleeding, infection, and pneu mothorax were explained to the patient. The patient understood and was willing to proceed. A procedu ral pause was performed. The patient's name, date of , and procedure to be performed were verif ied. The central line was inserted with all elements of maximal sterile barrier technique. All of th e following were used: head covering, facial mask, sterile gown, sterile gloves, a large sterile she et, hand hygiene, and 2% chlorhexidine for cutaneous antisepsis. The right neck and anterior/super ior chest wall was prepped and draped in usual sterile fashion. Limited sonography of the right pleural space was then performed. Noted is a large right pleural eff usion. Ultrasound images were recorded and stored in the patient's medical record. Following the local injection of Xylocaine, the right the pleural space was punctured under sonograp hic guidance with 18-gauge needle through which a 0.035 inch floppy tip guidewire was advanced into the right pleural space. The patient tolerated the procedure well. The remainder of the procedure was performed and dictated under separate cover. COMPARISON: None. FINDINGS: The ultrasound images demonstrate a large right pleural effusion. The subsequent images demonstrate the needle entering the right pleural space. IMPRESSION: 1. Ultrasound guidance for a needle placement in right the pleural space. RPTAT: QQ .Amirt Eldridge MD, Date Time Electronically viewed and signed by .Amrit Eldridge MD, on 02/17/2017 16:57 .R/
--- NOTE | 2017-02-17 17:01 | RADRPT ---
PROCEDURE: ULTRASOUND AND FLUOROSCOPICALLY-GUIDED PERCUTANEOUS PLACEMENT OF TUNNELED RIGHT PLEURAL DRAINAGE CATHETER. CLINICAL INDICATION: Large right pleural effusion and shortness of breath. TECHNIQUE: Prior to the procedure, informed consent was obtained. Risks including bleeding, infection, and pneu mothorax were explained to the patient. The patient understood and was willing to proceed. A procedu ral pause was performed. The patient's name, date of , and procedure to be performed were verif ied. The central line was inserted with all elements of maximal sterile barrier technique. All of th e following were used: head covering, facial mask, sterile gown, sterile gloves, a large sterile she et, hand hygiene, and 2% chlorhexidine for cutaneous antisepsis. The right lateral chest wall was prepped and draped in the usual sterile fashion. Limited sonography of the right side of chest was then performed. Noted is a large right pleural eff usion. Ultrasound images were recorded and stored in the patient's medical record. Following the local injection of Xylocaine, the right pleural space was punctured under sonographic guidance posterior laterally at the 8/9 rib interspace with an 18-gauge needle through which a 0.035 inch floppy tip guidewire was advanced into the right pleural space. Following this, the catheter was tunneled subcutaneously in the right chest wall. The cuff of the catheter was positioned in the subcutaneous tissues within the tunnel approximately 2 cm from the exit site of the catheter. Serial dilatation was then performed to 16-Bangladeshi and a 16-Bangladeshi peel-away sheath was advanced over the g uidewire. The 15.5 Bangladeshi Pleurex pleural catheter was advanced through the peel-away sheath into th e right pleural space. Pleural fluid was aspirated, to verify position. The peel-away sheath was rem mattie. The subcutaneous tissues were closed with running 3-0 Vicryl. The skin wound was then closed u sing 4-0 Vicryl and a running subcuticular technique. The catheter was secured to the skin with 2-0 silk suture. The site was dressed. The patient tolerated the procedure well. 1.1 liters pleural flui d was aspirated out of the catheter without problem. COMPARISON: Chest x-ray done earlier the same day. FINDINGS: The final images demonstrate the pleural catheter within the right pleural space. Total fluoroscopy time is 0.2 minutes. 5 images of the chest were obtained with image intensifier. IMPRESSION: 1. Satisfactory percutaneous insertion of tunneled right pleural drainage catheter with ultrasound a nd fluoroscopic guidance. RPTAT: QQ .Amrit Eldridge MD, Date Time Electronically viewed and signed by .Amrit Eldridge MD, on 02/17/2017 17:01 .R/
[2017-02-17] MEDS ORDERED: METOPROLOL 5 MG INJ IV ONE (20:30)
[2017-02-17] MEDS: ATORVASTATIN 20 MG TAB PO SCH (20:32)
[2017-02-18] VITALS (12 sets, daily range): BP systolic 92–129; BP diastolic 52–63; PULSE 87–115; RESP 18–27
[2017-02-18] MEDS: CEFTRIAXONE 1 GM INJ IM SCH ×2 (01:19→20:48)
[2017-02-18] MEDS: SOD CHLORIDE 0.9% 1,000 ML IV SCH ×2 (01:20→02:56)
[2017-02-18] MEDS: PANTOPRAZOLE (EC) 40 MG TAB PO SCH (05:52)
[2017-02-18] MEDS: ALBUTEROL/IPRATROPIUM (NEB) 3 ML AMP HHN SCH ×3 (08:00→19:55)
[2017-02-18] MEDS: ASPIRIN (EC) 81 MG TAB PO SCH (09:21)
[2017-02-18] MEDS: OXYCODONE/ACETAMINOPHEN (5/325) TAB PO PRN ×2 (09:36→18:31)
--- NOTE | 2017-02-18 14:47 | CONS ---
Date/Time of Note Date/Time of Note DATE: 02/18/17 TIME: 14:45 Assessment/Plan Assessment/Plan Chief Complaint/Hosp Course IMP: 1.CHF-systolic acute on chronic 2. cardiomyopathy 3.ICD near EOL 4.Pleural effusion 5.Leukopenia 6.Met Breast CA 7. Hyponatremia-improved 8. Renal failure 9. Hypotension-improved of pressors Recc: -Tele -Hold lasix -coreg as tolerated -Continue statin/ASA -ICD generator change by DR philip when stable -IVF hydration -consider checking blood cultures Problems: Consultation Date/Type/Reason Admit Date/Time Feb 12, 2017 at 09:06 Initial Consult Date 02/12/2017 Type of Consultation: cardiology Reason for Consultation ICD Referring Provider: GARY CROSS MD Exam/Review of Systems Vital Signs Vitals Vital Signs Date Time Temp Pulse Resp B/P Pulse Ox O2 Delivery O2 Flow Rate FiO2 02/18/17 12:12 87 02/18/17 11:37 97.6 20 100/55 94 02/18/17 08:27 3.0 32 02/18/17 08:27 Nasal Cannula Intake and Output 02/17/17 02/17/17 02/18/17 15:00 23:00 07:00 Intake Total 460.82 ml 50 ml 240 ml Output Total 520 ml 225 ml 265 ml Balance -59.18 ml -175 ml -25 ml Exam Review of Systems: CONSTITUTIONAL: No fevers, chills. PULMONARY: No sob CARDIOVASCULAR: No chest pain/palpitations GASTROINTESTINAL: No nausea/vomiting. GENITOURINARY: No hematuria/dysuria. MUSCULOSKELETAL: No myagias/arthalgias. PSYCHIATRIC: The patient denies depression. NEUROLOGIC: lethargic Constitutional: alert Psych: no complaints Head: normocephalic ENMT: mucosa pink and moist Neck: jvd (9 cm water), supple Respiratory: diminished breath sounds (at bases/B) Cardiovascular: regular rate and rhythm Gastrointestinal: non-tender, soft Musculoskeletal: muscle weakness (generalized) Extremities: edema (none) Neurological: lethargic Results Result Diagram: 02/18/17 0605 02/18/17604 Results 24 hrs Laboratory Tests Test 02/18/17 06:05 White Blood Count 4.9 Red Blood Count 3.05 L Hemoglobin 9.7 L Hematocrit 29.1 L Mean Corpuscular Volume 95.4 Mean Corpuscular Hemoglobin 31.8 Mean Corpuscular Hemoglobin Concent 33.3 Red Cell Distribution Width 13.6 Platelet Count 236 Mean Platelet Volume 11.4 H Neutrophils % 75.4 Lymphocytes % 4.5 L Monocytes % 17.5 H Eosinophils % 1.6 Basophils % 0.4 Nucleated Red Blood Cells % 0.0 Neutrophils # 3.7 Lymphocytes # 0.2 L Monocytes # 0.9 Eosinophils # 0.1 Basophils # 0.0 Nucleated Red Blood Cells # 0.0 Sodium Level 135 Potassium Level 4.0 Chloride Level 103 Carbon Dioxide Level 27 Anion Gap 9 Blood Urea Nitrogen 22 #H Creatinine 1.10 H Glucose Level 160 Calcium Level 8.2 L Total Bilirubin 0.1 L Direct Bilirubin 0.00 Indirect Bilirubin 0.1 Aspartate Amino Transf (AST/SGOT) 52 H Alanine Aminotransferase (ALT/SGPT) 42 Alkaline Phosphatase 88 Total Protein 5.6 L Albumin 2.6 L Globulin 3.00 Albumin/Globulin Ratio 0.86 Medications Medications Current Medications Ondansetron HCl (Zofran Inj) 4 mg Q6H PRN IV NAUSEA AND/OR VOMITING Last administered on 02/15/17 18:39; Admin Dose 4 MG; Start 02/12/17 at 14:00 Acetaminophen (Tylenol Tab) 650 mg Q6H PRN PO PAIN LEVEL 1-3 OR FEVER; Start 02/12/17 at 14:00 Oxycodone/ Acetaminophen (Percocet (5/ 325)) 1 tab Q6H PRN PO SEVERE PAIN LEVEL 7-10 Last administered on 02/18/17 09:36; Admin Dose 1 TAB; Start 02/12 at 14:00 Bisacodyl (Dulcolax) 5 mg DAILY PRN PO CONSTIPATION; Start 02/12/17 at 14:00 Pantoprazole (Protonix Tab) 40 mg DAILY@06 PO Last administered on 02/18/17 05:52; Admin Dose 40 MG; Start 02/13/17 at 06:00 Aspirin (Halfprin) 81 mg DAILY PO Last administered on 02/18/17 09:21; Admin Dose 81 MG; Start 02/13/17 at 09:00 Atorvastatin Calcium (Lipitor) 20 mg HS PO Last administered on 02/17/17 20: 32; Admin Dose 20 MG; Start 02/12/17 at 21:00 Guaifenesin/ Dextromethorphan (Robitussin Dm Liquid Cup) 5 ml Q4H PRN PO cough ; Start 02/15/17 at 20:00 IV Flush 10 ml 10 ml PRN PRN IV IV PROTOCOL; Start 02/16/17 at 13:00 Sodium Chloride (NS) 1,000 ml @ 50 mls/hr Q20H IV Last administered on 02:56; Admin Dose 50 MLS/HR; Start 02/16/17 at 17:30 Ceftriaxone Sodium (Rocephin) 1 gm Q24H IM Last administered on 02/18/17 01: 19; Admin Dose 1 GM; Start 02/16/17 at 21:00 Carvedilol (Coreg) 3.125 mg BID PO Last administered on 02/17/17 22:00; Admin Dose 3.125 MG; Start 02/17/17 at 21:00 ROXIE VELARDE Feb 18, 2017 14:47
--- NOTE | 2017-02-18 15:02 | CONS ---
Date/Time of Note Date/Time of Note DATE: 02/18/17 TIME: 14:59 Assessment/Plan Assessment/Plan Chief Complaint/Hosp Course 1. Acute renal failure resolved. Will stop IVF for now. 2. Metastatic breast cancer 3. Cardiomyopathy 4. Bilateral pleural effusions with Pleurx tube in the left chest . 5. Anemia I will sign off case, please re-consult prn. Thank you. Problems: Consultation Date/Type/Reason Admit Date/Time Feb 12, 2017 at 09:06 Initial Consult Date Type of Consultation: Nephrology Referring Provider: GARY CROSS MD 24 HR Interval Summary Free Text/Dictation The patient is alert, denies SOB. Son at bedside. Exam/Review of Systems Vital Signs Vitals Vital Signs Date Time Temp Pulse Resp B/P Pulse Ox O2 Delivery O2 Flow Rate FiO2 02/18/17 12:12 87 02/18/17 11:37 97.6 20 100/55 94 02/18/17 08:27 3.0 32 02/18/17 08:27 Nasal Cannula Intake and Output 02/17/17 02/17/17 02/18/17 15:00 23:00 07:00 Intake Total 460.82 ml 50 ml 240 ml Output Total 520 ml 225 ml 265 ml Balance -59.18 ml -175 ml -25 ml Exam Constitutional: alert Head: atraumatic, normocephalic Neck: supple, No jvd Respiratory: clear to auscultation Cardiovascular: regular rate and rhythm Extremities: No edema Results Result Diagram: 02/18/17 0605 02/18/17 0605 Results 24 hrs Laboratory Tests Test 02/18/17 06:05 White Blood Count 4.9 Red Blood Count 3.05 L Hemoglobin 9.7 L Hematocrit 29.1 L Mean Corpuscular Volume 95.4 Mean Corpuscular Hemoglobin 31.8 Mean Corpuscular Hemoglobin Concent 33.3 Red Cell Distribution Width 13.6 Platelet Count 236 Mean Platelet Volume 11.4 H Neutrophils % 75.4 Lymphocytes % 4.5 L Monocytes % 17.5 H Eosinophils % 1.6 Basophils % 0.4 Nucleated Red Blood Cells % 0.0 Neutrophils # 3.7 Lymphocytes # 0.2 L Monocytes # 0.9 Eosinophils # 0.1 Basophils # 0.0 Nucleated Red Blood Cells # 0.0 Sodium Level 135 Potassium Level 4.0 Chloride Level 103 Carbon Dioxide Level 27 Anion Gap 9 Blood Urea Nitrogen 22 #H Creatinine 1.10 H Glucose Level 160 Calcium Level 8.2 L Total Bilirubin 0.1 L Direct Bilirubin 0.00 Indirect Bilirubin 0.1 Aspartate Amino Transf (AST/SGOT) 52 H Alanine Aminotransferase (ALT/SGPT) 42 Alkaline Phosphatase 88 Total Protein 5.6 L Albumin 2.6 L Globulin 3.00 Albumin/Globulin Ratio 0.86 Medications Medications Current Medications Ondansetron HCl (Zofran Inj) 4 mg Q6H PRN IV NAUSEA AND/OR VOMITING Last administered on 02/15/17 18:39; Admin Dose 4 MG; Start 02/12/17 at 14:00 Acetaminophen (Tylenol Tab) 650 mg Q6H PRN PO PAIN LEVEL 1-3 OR FEVER; Start 02/12/17 at 14:00 Oxycodone/ Acetaminophen (Percocet (5/ 325)) 1 tab Q6H PRN PO SEVERE PAIN LEVEL 7-10 Last administered on 02/18/17 09:36; Admin Dose 1 TAB; Start 02/12 at 14:00 Bisacodyl (Dulcolax) 5 mg DAILY PRN PO CONSTIPATION; Start 02/12/17 at 14:00 Pantoprazole (Protonix Tab) 40 mg DAILY@06 PO Last administered on 02/18/17 05:52; Admin Dose 40 MG; Start 02/13/17 at 06:00 Aspirin (Halfprin) 81 mg DAILY PO Last administered on 02/18/17 09:21; Admin Dose 81 MG; Start 02/13/17 at 09:00 Atorvastatin Calcium (Lipitor) 20 mg HS PO Last administered on 02/17/17 20: 32; Admin Dose 20 MG; Start 02/12/17 at 21:00 Guaifenesin/ Dextromethorphan (Robitussin Dm Liquid Cup) 5 ml Q4H PRN PO cough ; Start 02/15/17 at 20:00 IV Flush 10 ml 10 ml PRN PRN IV IV PROTOCOL; Start 02/16/17 at 13:00 Sodium Chloride (NS) 1,000 ml @ 50 mls/hr Q20H IV Last administered on 02:56; Admin Dose 50 MLS/HR; Start 02/16/17 at 17:30 Ceftriaxone Sodium (Rocephin) 1 gm Q24H IM Last administered on 02/18/17 01: 19; Admin Dose 1 GM; Start 02/16/17 at 21:00 Carvedilol (Coreg) 3.125 mg BID PO Last administered on 02/17/17 22:00; Admin Dose 3.125 MG; Start 02/17/17 at 21:00 ERIN QUIÑONEZ MD Feb 18, 2017 15:02
--- NOTE | 2017-02-18 15:19 | PN ---
Date/Time of Note Date/Time of Note DATE: 02/18/17 TIME: 15:14 Assessment/Plan VTE Prophylaxis VTE Prophylaxis Intervention: SCD's Lines/Catheters IV Catheter Type (from Nrsg): Mid Line Central line still needed: Yes Urinary Cath still in place: No Assessment/Plan Assessment/Plan 1. Hypotension- improving - Holding all antihypertensive medications - will continue to monitor 2. Bilateral pleural effusions, likely malignant - Right Pleurx cath placed yesterday and 1100cc drained. SOB improved. Experiencing discomfort at site of insertion. L Pleurx cath in place and denies any discomfort at site of insertion. - Pulmonology on board and drain Pleurx every 3 days - Continue on NC and wean as tolerating to keep saturations >90% 3. Leukopenia- improved - stable, trending upward 4. Cardiomyopathy, congestive heart failure, acute on chronic ejection fraction 45% - Cardiology on board and recommendations appreciated. - Continue statin and aspirin. All other BP meds on hold - ICD battery change with Dr. Pineda once stable 5. 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 Tay, oncology - Palliative on board 6. Anemia of chronic disease - currently stable - will continue monitoring 7. Acute kidney injury - Nephrology consultation appreciated. improvement in renal function and signed off case. Will reconsult if any issues 8. Disposition - Continue monitoring on telemetry - Will touch base with Cardiology on plans for ICD battery replacement Subjective 24 Hr Interval Summary Free Text/Dictation Patient doing well after pleurx placement yesterday and drainage of 1100 cc of fluid. Still has some pain at site but improving. No acute overnight events. Exam/Review of Systems Vital Signs Vitals Vital Signs Date Time Temp Pulse Resp B/P Pulse Ox O2 Delivery O2 Flow Rate FiO2 02/18/17 12:12 87 02/18/17 11:37 97.6 20 100/55 94 02/18/17 08:27 3.0 32 02/18/17 08:27 Nasal Cannula Intake and Output 02/17/17 02/17/17 02/18/17 15:00 23:00 07:00 Intake Total 460.82 ml 50 ml 240 ml Output Total 520 ml 225 ml 265 ml Balance -59.18 ml -175 ml -25 ml Exam Constitutional: NAD,resting comfortably, awake and alert Head: atraumatic, normocephalic Eyes: EOMI, PERRL Respiratory: diminished breath sounds bases , No wheezing. B/l pleurx cath in place Cardiovascular: nl rhythm, systolic murmurs Gastrointestinal: non-tender, soft, No distended, No rebound or guarding Musculoskeletal: nl extremities to inspection Extremities: normal pulses Neurological: STEAM[employer]IT[employer] SUPER[employer]OR II-XII intact, nl mental status Skin: nl turgor Results Result Diagram: 02/18/17 0602/18/17 06 Results 24 hrs Laboratory Tests Test 02/18/17 06:05 White Blood Count 4.9 Red Blood Count 3.05 L Hemoglobin 9.7 L Hematocrit 29.1 L Mean Corpuscular Volume 95.4 Mean Corpuscular Hemoglobin 31.8 Mean Corpuscular Hemoglobin Concent 33.3 Red Cell Distribution Width 13.6 Platelet Count 236 Mean Platelet Volume 11.4 H Neutrophils % 75.4 Lymphocytes % 4.5 L Monocytes % 17.5 H Eosinophils % 1.6 Basophils % 0.4 Nucleated Red Blood Cells % 0.0 Neutrophils # 3.7 Lymphocytes # 0.2 L Monocytes # 0.9 Eosinophils # 0.1 Basophils # 0.0 Nucleated Red Blood Cells # 0.0 Sodium Level 135 Potassium Level 4.0 Chloride Level 103 Carbon Dioxide Level 27 Anion Gap 9 Blood Urea Nitrogen 22 #H Creatinine 1.10 H Glucose Level 160 Calcium Level 8.2 L Total Bilirubin 0.1 L Direct Bilirubin 0.00 Indirect Bilirubin 0.1 Aspartate Amino Transf (AST/SGOT) 52 H Alanine Aminotransferase (ALT/SGPT) 42 Alkaline Phosphatase 88 Total Protein 5.6 L Albumin 2.6 L Globulin 3.00 Albumin/Globulin Ratio 0.86 Medications Medications Current Medications Ondansetron HCl (Zofran Inj) 4 mg Q6H PRN IV NAUSEA AND/OR VOMITING Last administered on 02/15/17 18:39; Admin Dose 4 MG; Start 02/12/17 at 14:00 Acetaminophen (Tylenol Tab) 650 mg Q6H PRN PO PAIN LEVEL 1-3 OR FEVER; Start 02/12/17 at 14:00 Oxycodone/ Acetaminophen (Percocet (5/ 325)) 1 tab Q6H PRN PO SEVERE PAIN LEVEL 7-10 Last administered on 02/18/17 09:36; Admin Dose 1 TAB; Start 10/15 /17 at 14:00 Bisacodyl (Dulcolax) 5 mg DAILY PRN PO CONSTIPATION; Start 02/12/17 at 14:00 Pantoprazole (Protonix Tab) 40 mg DAILY@06 PO Last administered on 02/18/17 05:52; Admin Dose 40 MG; Start 02/13/17 at 06:00 Aspirin (Halfprin) 81 mg DAILY PO Last administered on 02/18/17 09:21; Admin Dose 81 MG; Start 02/13/17 at 09:00 Atorvastatin Calcium (Lipitor) 20 mg HS PO Last administered on 02/17/17 20: 32; Admin Dose 20 MG; Start 02/12/17 at 21:00 Guaifenesin/ Dextromethorphan (Robitussin Dm Liquid Cup) 5 ml Q4H PRN PO cough ; Start 02/15/17 at 20:00 IV Flush (NS 10 ml) 10 ml PRN PRN IV IV PROTOCOL; Start 02/16/17 at 13:00 Ceftriaxone Sodium (Rocephin) 1 gm Q24H IM Last administered on 02/18/17 01: 19; Admin Dose 1 GM; Start 02/16/17 at 21:00 Carvedilol (Coreg) 3.125 mg BID PO Last administered on 02/17/17 22:00; Admin Dose 3.125 MG; Start 02/17/17 at 21:00 GARY CROSS MD Feb 18, 2017 15:19
--- NOTE | 2017-02-18 17:34 | CONS ---
Date/Time of Note Date/Time of Note DATE: 02/18/17 TIME: 17:33 Consult Date/Type/Reason Admit Date/Time Feb 12, 2017 at 09:06 Initial Consult Date Type of Consultation: Pulm Ordering Provider: GARY CROSS MD Subjective s/p placement of right PleurX with 1.1 L drainage Objective Vital Signs Date Time Temp Pulse Resp B/P Pulse Ox O2 Delivery O2 Flow Rate FiO2 02/18/17 16:06 88 02/18/17 15:33 97.8 19 104/53 95 02/18/17 15:20 3.0 32 02/18/17 15:20 Nasal Cannula Intake and Output 02/17/17 02/17/17 02/18/17 15:00 23:00 07:00 Intake Total 460.82 ml 50 ml 240 ml Output Total 520 ml 225 ml 265 ml Balance -59.18 ml -175 ml -25 ml Exam HEENT: Neck supple; no JVD; no LAD CVS: RRR, S1 and S2 CHEST: Decreased right sided BS ABD: Soft, NT, + BS EXT: No c/c/e Results/Medications Result Diagram: 02/18/1760402/18/17604 Results 24 hrs Laboratory Tests Test 02/18/17 06:05 White Blood Count 4.9 Red Blood Count 3.05 L Hemoglobin 9.7 L Hematocrit 29.1 L Mean Corpuscular Volume 95.4 Mean Corpuscular Hemoglobin 31.8 Mean Corpuscular Hemoglobin Concent 33.3 Red Cell Distribution Width 13.6 Platelet Count 236 Mean Platelet Volume 11.4 H Neutrophils % 75.4 Lymphocytes % 4.5 L Monocytes % 17.5 H Eosinophils % 1.6 Basophils % 0.4 Nucleated Red Blood Cells % 0.0 Neutrophils # 3.7 Lymphocytes # 0.2 L Monocytes # 0.9 Eosinophils # 0.1 Basophils # 0.0 Nucleated Red Blood Cells # 0.0 Sodium Level 135 Potassium Level 4.0 Chloride Level 103 Carbon Dioxide Level 27 Anion Gap 9 Blood Urea Nitrogen 22 #H Creatinine 1.10 H Glucose Level 160 Calcium Level 8.2 L Total Bilirubin 0.1 L Direct Bilirubin 0.00 Indirect Bilirubin 0.1 Aspartate Amino Transf (AST/SGOT) 52 H Alanine Aminotransferase (ALT/SGPT) 42 Alkaline Phosphatase 88 Total Protein 5.6 L Albumin 2.6 L Globulin 3.00 Albumin/Globulin Ratio 0.86 Medications Current Medications Ondansetron HCl (Zofran Inj) 4 mg Q6H PRN IV NAUSEA AND/OR VOMITING Last administered on 02/15/17 18:39; Admin Dose 4 MG; Start 02/12/17 at 14:00 Acetaminophen (Tylenol Tab) 650 mg Q6H PRN PO PAIN LEVEL 1-3 OR FEVER; Start 02/12/17 at 14:00 Oxycodone/ Acetaminophen (Percocet (5/ 325)) 1 tab Q6H PRN PO SEVERE PAIN LEVEL 7-10 Last administered on 02/18/17 09:36; Admin Dose 1 TAB; Start 02/12 at 14:00 Bisacodyl (Dulcolax) 5 mg DAILY PRN PO CONSTIPATION; Start 02/12/17 at 14:00 Pantoprazole (Protonix Tab) 40 mg DAILY@06 PO Last administered on 02/18/17 05:52; Admin Dose 40 MG; Start 02/13/17 at 06:00 Aspirin (Halfprin) 81 mg DAILY PO Last administered on 02/18/17 09:21; Admin Dose 81 MG; Start 02/13/17 at 09:00 Atorvastatin Calcium (Lipitor) 20 mg HS PO Last administered on 02/17/17 20: 32; Admin Dose 20 MG; Start 02/12/17 at 21:00 Guaifenesin/ Dextromethorphan (Robitussin Dm Liquid Cup) 5 ml Q4H PRN PO cough ; Start 02/15/17 at 20:00 IV Flush (NS 10 ml) 10 ml PRN PRN IV IV PROTOCOL; Start 02/16/17 at 13:00 Ceftriaxone Sodium (Rocephin) 1 gm Q24H IM Last administered on 02/18/17 01: 19; Admin Dose 1 GM; Start 02/16/17 at 21:00 Carvedilol (Coreg) 3.125 mg BID PO Last administered on 02/17/17 22:00; Admin Dose 3.125 MG; Start 02/17/17 at 21:00 Assessment/Plan Additional Assessment/Plan IMP: 1. Recurrent large pleural effusion status post Pleurx catheter placement 2. Metastatic breast cancer 3. Hypoxemic respiratory insufficiency 4. Renal insufficiency RECS: 1. Drain Pleurx catheter every third day 2. CXR in 1-2 days LETICIA ABARCA MD Feb 18, 2017 17:34
[2017-02-18] MEDS: ONDANSETRON 4 MG INJ IV PRN (20:46)
[2017-02-18] MEDS: ATORVASTATIN 20 MG TAB PO SCH (20:47)
[2017-02-19] VITALS (12 sets, daily range): BP systolic 105–123; BP diastolic 52–72; PULSE 83–95; RESP 17–20
[2017-02-19] MEDS: PANTOPRAZOLE (EC) 40 MG TAB PO SCH (05:59)
[2017-02-19] MEDS: OXYCODONE/ACETAMINOPHEN (5/325) TAB PO PRN ×2 (05:59→17:42)
[2017-02-19] MEDS: ALBUTEROL/IPRATROPIUM (NEB) 3 ML AMP HHN SCH ×3 (08:21→19:53)
[2017-02-19] MEDS ORDERED: LEVOFLOXACIN 750MG/D5W (PMX) 150 ML IVPB SCH (08:30)
[2017-02-19] MEDS: CEPHALEXIN 500 MG CAP PO SCH ×2 (09:07→21:18)
[2017-02-19] MEDS: ASPIRIN (EC) 81 MG TAB PO SCH (09:08)
--- NOTE | 2017-02-19 13:38 | CONS ---
Date/Time of Note Date/Time of Note DATE: 02/19/17 TIME: 13:35 Assessment/Plan Assessment/Plan Chief Complaint/Hosp Course IMP: 1.CHF-systolic acute on chronic 2. cardiomyopathy 3.ICD near EOL 4.Pleural effusion 5.Leukopenia 6.Met Breast CA 7. Hyponatremia-improved 8. Renal failure 9. Hypotension-improved of pressors 10.R pleuraol effusion s/p PLeur-x catheter placement Recc: -Tele -Follow volume status closely and drain catheter as necessary -coreg as tolerated -Continue statin/ASA -ICD generator change by DR philip when stable -Now on kelfex only Problems: Consultation Date/Type/Reason Admit Date/Time Feb 12, 2017 at 09:06 Initial Consult Date 02/12/2017 Type of Consultation: cardiology Reason for Consultation PPM/ICD Referring Provider: GARY CROSS MD Exam/Review of Systems Vital Signs Vitals Vital Signs Date Time Temp Pulse Resp B/P Pulse Ox O2 Delivery O2 Flow Rate FiO2 02/19/17 12:06 84 02/19/17 12:03 98.0 17 123/59 94 02/19/17 08:22 4.0 36 02/19/17 08:22 Nasal Cannula Intake and Output 02/18/17 02/18/17 02/19/17 15:00 23:00 07:00 Intake Total 1000 ml Output Total 475 ml Balance 525 ml Exam Review of Systems: CONSTITUTIONAL: No fevers, chills. PULMONARY: No sob CARDIOVASCULAR: No chest pain/palpitations GASTROINTESTINAL: No nausea/vomiting. GENITOURINARY: No hematuria/dysuria. MUSCULOSKELETAL: No myagias/arthalgias. PSYCHIATRIC: The patient denies depression. NEUROLOGIC: somewhat lethargic Constitutional: alert Psych: no complaints Head: normocephalic ENMT: mucosa pink and moist Neck: jvd, supple Respiratory: diminished breath sounds (R>L) Cardiovascular: regular rate and rhythm Gastrointestinal: non-tender, soft Musculoskeletal: muscle weakness (mild generalized) Extremities: other (No focal deficits) Results Result Diagram: 02/18/1760402/18/17604 Medications Medications Current Medications Ondansetron HCl (Zofran Inj) 4 mg Q6H PRN IV NAUSEA AND/OR VOMITING Last administered on 02/18/17t 20:46; Admin Dose 4 MG; Start 02/12/17 at 14:00 Acetaminophen (Tylenol Tab) 650 mg Q6H PRN PO PAIN LEVEL 1-3 OR FEVER Last administered on 02/18/17 20:47; Admin Dose 650 MG; Start 02/12/17 at 14:00 Oxycodone/ Acetaminophen (Percocet (5/ 325)) 1 tab Q6H PRN PO SEVERE PAIN LEVEL 7-10 Last administered on 02/19/17 05:59; Admin Dose 1 TAB; Start 02/12 at 14:00 Bisacodyl (Dulcolax) 5 mg DAILY PRN PO CONSTIPATION; Start 02/12/17 at 14:00 Pantoprazole (Protonix Tab) 40 mg DAILY@06 PO Last administered on 02/19/17 05:59; Admin Dose 40 MG; Start 02/13/17 at 06:00 Aspirin (Halfprin) 81 mg DAILY PO Last administered on 02/19/17 09:08; Admin Dose 81 MG; Start 02/13/17 at 09:00 Atorvastatin Calcium (Lipitor) 20 mg HS PO Last administered on 02/18/17 20: 47; Admin Dose 20 MG; Start 02/12/17 at 21:00 Guaifenesin/ Dextromethorphan (Robitussin Dm Liquid Cup) 5 ml Q4H PRN PO cough ; Start 02/15/17 at 20:00 IV Flush (NS 10 ml) 10 ml PRN PRN IV IV PROTOCOL; Start 02/16/17 at 13:00 Carvedilol (Coreg) 3.125 mg BID PO Last administered on 02/19/17 09:08; Admin Dose 3.125 MG; Start 02/17/17 at 21:00 Cephalexin (Keflex) 500 mg BID PO Last administered on 02/19/17 09:07; Admin Dose 500 MG; Start 02/19/17 at 09:00 ROXIE VELARDE Feb 19, 2017 13:38
--- NOTE | 2017-02-19 14:18 | PN ---
Date/Time of Note Date/Time of Note DATE: 02/19/17 TIME: 14:13 Assessment/Plan VTE Prophylaxis VTE Prophylaxis Intervention: SCD's Lines/Catheters IV Catheter Type (from Nrs): Mid Line Central line still needed: Yes Urinary Cath still in place: Yes Reason Cath still needed: urinary retention Assessment/Plan Assessment/Plan 1. Bilateral pleural effusions, likely malignant - Pulmonology on board and plan is to drain Pleurx every 3 days - Patient states doing well today and does not want fluid drained. Will check CXR in the am and drain if needed - Continue on NC and wean as tolerating to keep saturations >90% 2. Hypotension- resolved - Holding all antihypertensive medications - will continue to monitor 3. Leukopenia-stable 4. Cardiomyopathy, congestive heart failure, acute on chronic ejection fraction 45% - Cardiology on board and recommendations appreciated. - Continue statin and aspirin. All other BP meds on hold - ICD battery change with Dr. Pineda once stable 5. 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 Tay, oncology - Palliative on board and appreciated consultation. Son requesting that Dr. Anderson not seek out family. They will ask for his assistance as needed. Dr. Anderson made aware 6. Anemia of chronic disease - currently stable - will continue monitoring 7. Acute kidney injury - Nephrology consultation appreciated. improvement in renal function and signed off case. Will reconsult if any issues 8. Disposition - Continue monitoring on telemetry - Will touch base with Cardiology on plans for ICD battery replacement Subjective 24 Hr Interval Summary Free Text/Dictation Patient states feeling better and only has minimal discomfort at site of pleurx on right side. No acute overnight events and no new complaints. Exam/Review of Systems Vital Signs Vitals Vital Signs Date Time Temp Pulse Resp B/P Pulse Ox O2 Delivery O2 Flow Rate FiO2 02/19/17 12:06 84 02/19/17 12:03 98.0 17 123/59 94 02/19/17 08:22 4.0 36 02/19/17 08:22 Nasal Cannula Intake and Output 02/18/17 02/18/17 02/19/17 14:59 22:59 06:59 Intake Total 1000 ml Output Total 475 ml Balance 525 ml Exam Constitutional: NAD,resting comfortably, awake and alert Head: atraumatic, normocephalic Eyes: EOMI, PERRL Respiratory: diminished breath sounds bases , No wheezing. B/l pleurx cath in place Cardiovascular: nl rhythm, systolic murmurs Gastrointestinal: non-tender, soft, No distended, No rebound or guarding Musculoskeletal: nl extremities to inspection Extremities: normal pulses Neurological: CHILD PSYCHOMETRIST II-XII intact, nl mental status Skin: nl turgor Results Result Diagram: 02/18/1760402/18/17604 Medications Medications Current Medications Ondansetron HCl (Zofran Inj) 4 mg Q6H PRN IV NAUSEA AND/OR VOMITING Last administered on 02/18/17 20:46; Admin Dose 4 MG; Start 02/12/17 at 14:00 Acetaminophen (Tylenol Tab) 650 mg Q6H PRN PO PAIN LEVEL 1-3 OR FEVER Last administered on 02/18/17 20:47; Admin Dose 650 MG; Start 02/12/17 at 14:00 Oxycodone/ Acetaminophen (Percocet (5/ 325)) 1 tab Q6H PRN PO SEVERE PAIN LEVEL 7-10 Last administered on 02/19/17 05:59; Admin Dose 1 TAB; Start 02/12 at 14:00 Bisacodyl (Dulcolax) 5 mg DAILY PRN PO CONSTIPATION; Start 02/12/17 at 14:00 Pantoprazole (Protonix Tab) 40 mg DAILY@06 PO Last administered on 02/19/17 05:59; Admin Dose 40 MG; Start 02/13/17 at 06:00 Aspirin (Halfprin) 81 mg DAILY PO Last administered on 02/19/17 09:08; Admin Dose 81 MG; Start 02/13/17 at 09:00 Atorvastatin Calcium (Lipitor) 20 mg HS PO Last administered on 02/18/17 20: 47; Admin Dose 20 MG; Start 02/12/17 at 21:00 Guaifenesin/ Dextromethorphan (Robitussin Dm Liquid Cup) 5 ml Q4H PRN PO cough ; Start 02/15/17 at 20:00 IV Flush (NS 10 ml) 10 ml PRN PRN IV IV PROTOCOL; Start 02/16/17 at 13:00 Carvedilol (Coreg) 3.125 mg BID PO Last administered on 02/19/17 09:08; Admin Dose 3.125 MG; Start 02/17/17 at 21:00 Cephalexin (Keflex) 500 mg BID PO Last administered on 02/19/17 09:07; Admin Dose 500 MG; Start 02/19/17 at 09:00 GARY CROSS MD Feb 19, 2017 14:18
--- NOTE | 2017-02-19 16:21 | CONS ---
Date/Time of Note Date/Time of Note DATE: 02/19/17 TIME: 16:20 Consult Date/Type/Reason Admit Date/Time Feb 12, 2017 at 09:06 Type of Consultation: Pulm Ordering Provider: GARY CROSS MD Subjective some pain associated with chest tube site. Objective Vital Signs Date Time Temp Pulse Resp B/P Pulse Ox O2 Delivery O2 Flow Rate FiO2 02/19/17 14:24 4.0 36 02/19/17 14:24 90 16 Nasal Cannula 02/19/17 12:03 98.0 123/59 94 Intake and Output 02/18/17 02/18/17 02/19/17 15:00 23:00 07:00 Intake Total 1000 ml Output Total 475 ml Balance 525 ml Exam HEENT: Neck supple; no JVD; no LAD CVS: RRR, S1 and S2 CHEST: Decreased right sided BS ABD: Soft, NT, + BS EXT: No c/c/e Results/Medications Result Diagram: 02/18/1760402/18/17604 Medications Current Medications Ondansetron HCl (Zofran Inj) 4 mg Q6H PRN IV NAUSEA AND/OR VOMITING Last administered on 02/18/17 20:46; Admin Dose 4 MG; Start 02/12/17 at 14:00 Acetaminophen (Tylenol Tab) 650 mg Q6H PRN PO PAIN LEVEL 1-3 OR FEVER Last administered on 02/18/17 20:47; Admin Dose 650 MG; Start 02/12/17 at 14:00 Oxycodone/ Acetaminophen (Percocet (5/ 325)) 1 tab Q6H PRN PO SEVERE PAIN LEVEL 7-10 Last administered on 02/19/17 05:59; Admin Dose 1 TAB; Start 02/12 at 14:00 Bisacodyl (Dulcolax) 5 mg DAILY PRN PO CONSTIPATION; Start 02/12/17 at 14:00 Pantoprazole (Protonix Tab) 40 mg DAILY@06 PO Last administered on 02/19/17 05:59; Admin Dose 40 MG; Start 02/13/17 at 06:00 Aspirin (Halfprin) 81 mg DAILY PO Last administered on 02/19/17 09:08; Admin Dose 81 MG; Start 02/13/17 at 09:00 Atorvastatin Calcium (Lipitor) 20 mg HS PO Last administered on 02/18/17 20: 47; Admin Dose 20 MG; Start 02/12/17 at 21:00 Guaifenesin/ Dextromethorphan (Robitussin Dm Liquid Cup) 5 ml Q4H PRN PO cough ; Start 02/15/17 at 20:00 IV Flush (NS 10 ml) 10 ml PRN PRN IV IV PROTOCOL; Start 02/16/17 at 13:00 Carvedilol (Coreg) 3.125 mg BID PO Last administered on 02/19/17 09:08; Admin Dose 3.125 MG; Start 02/17/17 at 21:00 Cephalexin (Keflex) 500 mg BID PO Last administered on 02/19/17 09:07; Admin Dose 500 MG; Start 02/19/17 at 09:00 Assessment/Plan Additional Assessment/Plan IMP: 1. Recurrent large pleural effusion status post Pleurx catheter placement 2. Metastatic breast cancer 3. Hypoxemic respiratory insufficiency 4. Renal insufficiency RECS: 1. Drain Pleurx catheter every third day 2. CXR in [facility] Rodriguez MD Feb 19, 2017 16:21
[2017-02-19] MEDS: ATORVASTATIN 20 MG TAB PO SCH (21:18)
[2017-02-20] VITALS (10 sets, daily range): BP systolic 109–138; BP diastolic 55–60; PULSE 90–100; RESP 16–18
[2017-02-20] MEDS: PANTOPRAZOLE (EC) 40 MG TAB PO SCH (06:14)
--- NOTE | 2017-02-20 08:09 | RADRPT ---
PROCEDURE: XR Chest. CLINICAL INDICATION: Pleural effusion. Shortness of breath. TECHNIQUE: Single frontal view. COMPARISON: 02/17/2017. FINDINGS: There is improved aeration of the right lung following placement of the right chest tube. The left c hest tube remains in position. There is an automatic internal cardiac defibrillator/biventricular pe rmanent pacemaker. The left arm PICC line is in satisfactory position. The heart is enlarged. There is calcification in the aorta consistent with atherosclerosis. There is atelectasis at the lung bases, improved on the right and unchanged on the left. Small bilateral pleural effusions are noted. There is no pneumothorax. IMPRESSION: 1. Improved appearance of the right lung following placement of right chest tube. 2. No other significant change from 02/25/2017. RPTAT: QQ .Amrit Eldridge MD, MD Date Time Electronically viewed and signed by .Amrit Eldridge MD, MD on 02/20/2017 08:08 .R/
--- NOTE | 2017-02-20 08:09 | RADRPT ---
PROCEDURE: XR Chest. CLINICAL INDICATION: Pleural effusion. Shortness of breath. TECHNIQUE: Single frontal view. COMPARISON: 02/17/2017. FINDINGS: There is improved aeration of the right lung following placement of the right chest tube. The left c hest tube remains in position. There is an automatic internal cardiac defibrillator/biventricular pe rmanent pacemaker. The left arm PICC line is in satisfactory position. The heart is enlarged. There is calcification in the aorta consistent with atherosclerosis. There is atelectasis at the lung bases, improved on the right and unchanged on the left. Small bilateral pleural effusions are noted. There is no pneumothorax. IMPRESSION: 1. Improved appearance of the right lung following placement of right chest tube. 2. No other significant change from 02/25/2017. RPTAT: QQ .Amrit Eldridge MD, MD Date Time Electronically viewed and signed by .Armit Eldridge MD, MD on 02/20/2017 08:08 .R/
[2017-02-20] MEDS: ALBUTEROL/IPRATROPIUM (NEB) 3 ML AMP HHN SCH ×3 (08:12→20:06)
[2017-02-20] MEDS: CEPHALEXIN 500 MG CAP PO SCH ×2 (08:29→21:19)
[2017-02-20] MEDS: ASPIRIN (EC) 81 MG TAB PO SCH (08:30)
[2017-02-20] MEDS: OXYCODONE/ACETAMINOPHEN (5/325) TAB PO PRN (11:59)
--- NOTE | 2017-02-20 14:06 | CONS ---
Date/Time of Note Date/Time of Note DATE: 02/20/17 TIME: 14:03 Assessment/Plan Assessment/Plan Chief Complaint/Hosp Course IMP: 1.CHF-systolic acute on chronic 2. cardiomyopathy 3.ICD near EOL 4.Pleural effusion 5.Leukopenia 6.Met Breast CA 7. Hyponatremia-improved 8. Renal failure 9. Hypotension-improved of pressors 10.R pleural effusion s/p PLeur-x catheter placement Recc: -Tele -Follow volume status closely and drain catheter as necessary -Contineu coreg and will add low dose ACEI afterload reduction as tolerated -Continue statin/ASA -ICD generator change by DR philip when stable -Now on kelfex only Problems: Consultation Date/Type/Reason Admit Date/Time Feb 12, 2017 at 09:06 Initial Consult Date 02/12/2017 Type of Consultation: cardiology Reason for Consultation CHF/icd Referring Provider: GARY CROSS MD Exam/Review of Systems Vital Signs Vitals Vital Signs Date Time Temp Pulse Resp B/P Pulse Ox O2 Delivery O2 Flow Rate FiO2 02/20/17 13:08 96 02/20/17 11:57 98.1 18 112/55 95 02/20/17 08:13 Nasal Cannula 4.0 36 Intake and Output 02/19/17 02/19/17 02/20/17 15:00 23:00 07:00 Intake Total 250 ml 700 ml 200 ml Output Total 500 ml 1300 ml 800 ml Balance -250 ml -600 ml -600 ml Exam Review of Systems: CONSTITUTIONAL: No fevers, chills. PULMONARY: No sob CARDIOVASCULAR: No chest pain/palpitations GASTROINTESTINAL: No nausea/vomiting. GENITOURINARY: No hematuria/dysuria. MUSCULOSKELETAL: No myagias/arthalgias. PSYCHIATRIC: The patient denies depression. NEUROLOGIC: No weakness Constitutional: alert Psych: no complaints Head: normocephalic ENMT: mucosa pink and moist Neck: jvd (9 cm water), supple Respiratory: diminished breath sounds (at bases/B) Cardiovascular: regular rate and rhythm Gastrointestinal: non-tender, soft Musculoskeletal: muscle weakness (mild generalized) Extremities: edema (none) Neurological: other (No focal deficits) Results Result Diagram: 02/20/17 0759 02/20/17 0759 Results 24 hrs Laboratory Tests Test 02/20/17 07:59 White Blood Count 4.7 L Red Blood Count 2.96 L Hemoglobin 9.6 L Hematocrit 29.3 L Mean Corpuscular Volume 99.0 Mean Corpuscular Hemoglobin 32.4 Mean Corpuscular Hemoglobin Concent 32.8 Red Cell Distribution Width 13.5 Platelet Count 241 Mean Platelet Volume 10.6 H Neutrophils % 67.1 Lymphocytes % 5.8 L Monocytes % 17.8 H Eosinophils % 6.9 Basophils % 1.1 Nucleated Red Blood Cells % 0.0 Neutrophils # 3.1 Lymphocytes # 0.3 L Monocytes # 0.8 Eosinophils # 0.3 Basophils # 0.1 Nucleated Red Blood Cells # 0.0 Sodium Level 136 Potassium Level 4.2 Chloride Level 101 Carbon Dioxide Level 27 Anion Gap 12 Blood Urea Nitrogen 13 Creatinine 1.01 H Glucose Level 98 Calcium Level 8.7 Phosphorus Level 3.5 Magnesium Level 1.8 Albumin 3.0 L Medications Medications Current Medications Ondansetron HCl (Zofran Inj) 4 mg Q6H PRN IV NAUSEA AND/OR VOMITING Last administered on 02/18/17 20:46; Admin Dose 4 MG; Start 02/12/17 at 14:00 Acetaminophen (Tylenol Tab) 650 mg Q6H PRN PO PAIN LEVEL 1-3 OR FEVER Last administered on 02/18/17 20:47; Admin Dose 650 MG; Start 02/12/17 at 14:00 Oxycodone/ Acetaminophen (Percocet (5/ 325)) 1 tab Q6H PRN PO SEVERE PAIN LEVEL 7-10 Last administered on 02/20/17 11:59; Admin Dose 1 TAB; Start 02/12 at 14:00 Bisacodyl (Dulcolax) 5 mg DAILY PRN PO CONSTIPATION; Start 02/12/17 at 14:00 Pantoprazole (Protonix Tab) 40 mg DAILY@06 PO Last administered on 02/20/17 06:14; Admin Dose 40 MG; Start 02/13/17 at 06:00 Aspirin (Halfprin) 81 mg DAILY PO Last administered on 02/20/17 08:30; Admin Dose 81 MG; Start 02/13/17 at 09:00 Atorvastatin Calcium (Lipitor) 20 mg HS PO Last administered on 02/19/17 21: 18; Admin Dose 20 MG; Start 02/12/17 at 21:00 Guaifenesin/ Dextromethorphan (Robitussin Dm Liquid Cup) 5 ml Q4H PRN PO cough ; Start 02/15/17 at 20:00 IV Flush (NS 10 ml) 10 ml PRN PRN IV IV PROTOCOL; Start 02/16/17 at 13:00 Carvedilol (Coreg) 3.125 mg BID PO Last administered on 02/20/17 08:30; Admin Dose 3.125 MG; Start 02/17/17 at 21:00 Cephalexin (Keflex) 500 mg BID PO Last administered on 02/20/17 08:29; Admin Dose 500 MG; Start 02/19/17 at 09:00 ROXIE VELARDE Feb 20, 2017 14:06
--- NOTE | 2017-02-20 14:49 | CONS ---
Date/Time of Note Date/Time of Note DATE: 02/20/17 TIME: 14:48 Consult Date/Type/Reason Admit Date/Time Feb 12, 2017 at 09:06 Type of Consultation: Pulmonary Ordering Provider: GARY CROSS MD Subjective Mild dyspnea today. Objective Vital Signs Date Time Temp Pulse Resp B/P Pulse Ox O2 Delivery O2 Flow Rate FiO2 02/20/17 14:13 4.0 02/20/17 13:08 96 02/20/17 11:57 98.1 18 112/55 95 02/20/17 08:13 Nasal Cannula 36 Intake and Output 02/19/17 02/19/17 02/20/17 15:00 23:00 07:00 Intake Total 250 ml 700 ml 200 ml Output Total 500 ml 1300 ml 800 ml Balance -250 ml -600 ml -600 ml Exam GENERAL: Elderly lady appears comfortable at rest no acute distress VITAL SIGNS: per chart NECK: Supple. No JVD or lymphadenopathy. CARDIAC EXAM: S1, S2. No added sounds or murmurs. CHEST: Diminished air entry bilaterally. ABDOMEN: Soft, nontender. No guarding or rebound. EXTREMITIES: No cyanosis, clubbing or edema. NEUROLOGIC: Generalized weakness. No focal deficits. Results/Medications Result Diagram: 02/20/17 0759 02/20/17 0759 Results 24 hrs Laboratory Tests Test 02/20/17 07:59 White Blood Count 4.7 L Red Blood Count 2.96 L Hemoglobin 9.6 L Hematocrit 29.3 L Mean Corpuscular Volume 99.0 Mean Corpuscular Hemoglobin 32.4 Mean Corpuscular Hemoglobin Concent 32.8 Red Cell Distribution Width 13.5 Platelet Count 241 Mean Platelet Volume 10.6 H Neutrophils % 67.1 Lymphocytes % 5.8 L Monocytes % 17.8 H Eosinophils % 6.9 Basophils % 1.1 Nucleated Red Blood Cells % 0.0 Neutrophils # 3.1 Lymphocytes # 0.3 L Monocytes # 0.8 Eosinophils # 0.3 Basophils # 0.1 Nucleated Red Blood Cells # 0.0 Sodium Level 136 Potassium Level 4.2 Chloride Level 101 Carbon Dioxide Level 27 Anion Gap 12 Blood Urea Nitrogen 13 Creatinine 1.01 H Glucose Level 98 Calcium Level 8.7 Phosphorus Level 3.5 Magnesium Level 1.8 Albumin 3.0 L Medications Current Medications Ondansetron HCl (Zofran Inj) 4 mg Q6H PRN IV NAUSEA AND/OR VOMITING Last administered on 02/18/17 20:46; Admin Dose 4 MG; Start 02/12/17 at 14:00 Acetaminophen (Tylenol Tab) 650 mg Q6H PRN PO PAIN LEVEL 1-3 OR FEVER Last administered on 02/18/17 20:47; Admin Dose 650 MG; Start 02/12/17 at 14:00 Oxycodone/ Acetaminophen (Percocet (5/ 325)) 1 tab Q6H PRN PO SEVERE PAIN LEVEL 7-10 Last administered on 02/20/17 11:59; Admin Dose 1 TAB; Start 02/12 at 14:00 Bisacodyl (Dulcolax) 5 mg DAILY PRN PO CONSTIPATION; Start 02/12/17 at 14:00 Pantoprazole (Protonix Tab) 40 mg DAILY@06 PO Last administered on 02/20/17 06:14; Admin Dose 40 MG; Start 02/13/17 at 06:00 Aspirin (Halfprin) 81 mg DAILY PO Last administered on 02/20/17 08:30; Admin Dose 81 MG; Start 02/13/17 at 09:00 Atorvastatin Calcium (Lipitor) 20 mg HS PO Last administered on 02/19/17 21: 18; Admin Dose 20 MG; Start 02/12/17 at 21:00 Guaifenesin/ Dextromethorphan (Robitussin Dm Liquid Cup) 5 ml Q4H PRN PO cough ; Start 02/15/17 at 20:00 IV Flush (NS 10 ml) 10 ml PRN PRN IV IV PROTOCOL; Start 02/16/17 at 13:00 Carvedilol (Coreg) 3.125 mg BID PO Last administered on 02/20/17 08:30; Admin Dose 3.125 MG; Start 02/17/17 at 21:00 Cephalexin (Keflex) 500 mg BID PO Last administered on 02/20/17 08:29; Admin Dose 500 MG; Start 02/19/17 at 09:00 Hydralazine HCl (Apresoline) 10 mg Q8 PO ; Start 02/20/17 at 22:00 Assessment/Plan Chief Complaint/Hosp Course IMP: 1. Recurrent large pleural effusion status post Pleurx catheter placement 2. Metastatic breast cancer 3. Hypoxemic respiratory insufficiency 4. Renal insufficiency RECS: 1. Drain Pleurx catheter every third day 2. CXR in am DC planning. [facility] Problems: STAN MAC MD, [facility] Feb 20, 2017 14:49
--- NOTE | 2017-02-20 18:45 | PN ---
Date/Time of Note Date/Time of Note DATE: 02/20/17 TIME: 18:42 Assessment/Plan VTE Prophylaxis VTE Prophylaxis Intervention: SCD's Lines/Catheters IV Catheter Type (from [facility] Mid Line Urinary Cath still in place: No Assessment/Plan Chief Complaint/Hosp Course Patient is a 81-year-old female with past medical history of metastatic breast cancer who presents for worsening malignant pleural effusions. Recently discharged 1. Bilateral pleural effusions, likely malignant - Pulmonology on board. pleurx cath drain Q3days - Continue on NC and wean as tolerating to keep saturations >90% 2. Hypotension- resolved - add medication as tolerating - will continue to monitor 3. Leukopenia-stable 4. Cardiomyopathy, congestive heart failure, acute on chronic ejection fraction 45% - Cardiology on board and recommendations appreciated. - Continue statin and aspirin. coreg restarted. titrate up as able. - ICD battery change pending 5. 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 Tay, oncology, outpatient. - Palliative on board and appreciated consultation. Son requesting that Dr. Anderson not seek out family. They will ask for his assistance as needed. Dr. Anderson made aware 6. Anemia of chronic disease - currently stable - will continue monitoring 7. Acute kidney injury - Nephrology consultation appreciated. improvement in renal function and signed off case. Will reconsult if any issues 8. Disposition - Continue monitoring on telemetry - ICD battery change tomorrow. Problems: Exam/Review of Systems Vital Signs Vitals Vital Signs Date Time Temp Pulse Resp B/P Pulse Ox O2 Delivery O2 Flow Rate FiO2 02/20/17 16:50 90 02/20/17 15:17 98.0 18 112/59 97 02/20/17 15:06 Nasal Cannula 4.0 36 Intake and Output 02/19/17 02/19/17 02/20/17 15:00 23:00 07:00 Intake Total 250 ml 700 ml 200 ml Output Total 500 ml 1300 ml 800 ml Balance -250 ml -600 ml -600 ml Results Result Diagram: 02/20/17 0759 02/20/17 0759 Results 24 hrs Laboratory Tests Test 02/20/17 07:59 White Blood Count 4.7 L Red Blood Count 2.96 L Hemoglobin 9.6 L Hematocrit 29.3 L Mean Corpuscular Volume 99.0 Mean Corpuscular Hemoglobin 32.4 Mean Corpuscular Hemoglobin Concent 32.8 Red Cell Distribution Width 13.5 Platelet Count 241 Mean Platelet Volume 10.6 H Neutrophils % 67.1 Lymphocytes % 5.8 L Monocytes % 17.8 H Eosinophils % 6.9 Basophils % 1.1 Nucleated Red Blood Cells % 0.0 Neutrophils # 3.1 Lymphocytes # 0.3 L Monocytes # 0.8 Eosinophils # 0.3 Basophils # 0.1 Nucleated Red Blood Cells # 0.0 Sodium Level 136 Potassium Level 4.2 Chloride Level 101 Carbon Dioxide Level 27 Anion Gap 12 Blood Urea Nitrogen 13 Creatinine 1.01 H Glucose Level 98 Calcium Level 8.7 Phosphorus Level 3.5 Magnesium Level 1.8 Albumin 3.0 L Medications Medications Current Medications Ondansetron HCl (Zofran Inj) 4 mg Q6H PRN IV NAUSEA AND/OR VOMITING Last administered on 02/18/17 20:46; Admin Dose 4 MG; Start 02/12/17 at 14:00 Acetaminophen (Tylenol Tab) 650 mg Q6H PRN PO PAIN LEVEL 1-3 OR FEVER Last administered on 02/18/17 20:47; Admin Dose 650 MG; Start 02/12/17 at 14:00 Oxycodone/ Acetaminophen (Percocet (5/ 325)) 1 tab Q6H PRN PO SEVERE PAIN LEVEL 7-10 Last administered on 02/20/17 11:59; Admin Dose 1 TAB; Start 02/12 at 14:00 Bisacodyl (Dulcolax) 5 mg DAILY PRN PO CONSTIPATION; Start 02/12/17 at 14:00 Pantoprazole (Protonix Tab) 40 mg DAILY@06 PO Last administered on 02/20/17 06:14; Admin Dose 40 MG; Start 02/13/17 at 06:00 Aspirin (Halfprin) 81 mg DAILY PO Last administered on 02/20/17 08:30; Admin Dose 81 MG; Start 02/13/17 at 09:00 Atorvastatin Calcium (Lipitor) 20 mg HS PO Last administered on 02/19/17 21: 18; Admin Dose 20 MG; Start 02/12/17 at 21:00 Guaifenesin/ Dextromethorphan (Robitussin Dm Liquid Cup) 5 ml Q4H PRN PO cough ; Start 02/15/17 at 20:00 IV Flush (NS 10 ml) 10 ml PRN PRN IV IV PROTOCOL; Start 02/16/17 at 13:00 Carvedilol (Coreg) 3.125 mg BID PO Last administered on 02/20/17 08:30; Admin Dose 3.125 MG; Start 02/17/17 at 21:00 Cephalexin (Keflex) 500 mg BID PO Last administered on 02/20/17 08:29; Admin Dose 500 MG; Start 02/19/17 at 09:00 Hydralazine HCl (Apresoline) 10 mg Q8 PO ; Start 02/20/17 at 22:00 DIMA COVARRUBIAS Feb 20, 2017 18:45
[2017-02-20] MEDS: ATORVASTATIN 20 MG TAB PO SCH (21:18)
[2017-02-21] VITALS (23 sets, daily range): BP systolic 80–124; BP diastolic 48–60; PULSE 90–114; RESP 14–20
[2017-02-21] MEDS: PANTOPRAZOLE (EC) 40 MG TAB PO SCH (05:09)
[2017-02-21] MEDS ORDERED: LIDOCAINE 2%/EPI MPF (SDV) 20 ML VIAL ONE (07:18)
[2017-02-21] MEDS ORDERED: FENTAnyl 50 MCG/ML VIAL ONE (07:30)
[2017-02-21] MEDS ORDERED: MIDAZOLAM 1 MG/ML 2 ML INJ ONE (07:30)
[2017-02-21] MEDS ORDERED: PROPOFOL 40 ML ONE (07:34)
[2017-02-21] MEDS: ALBUTEROL/IPRATROPIUM (NEB) 3 ML AMP HHN SCH ×3 (08:00→21:12)
[2017-02-21] MEDS ORDERED: CEFAZOLIN 2 GM/50 ML (PMX) 50 ML IVPB ONE (08:13)
[2017-02-21] MEDS ORDERED: SOD CHLORIDE 0.9% 1,000 ML IV SCH (08:20)
--- NOTE | 2017-02-21 08:20 | SIPON ---
Date/Time of Note Date/Time of Note DATE: 02/21/17 TIME: 08:18 Operative Report Preoperative Diagnosis End of life ICD Postoperative Diagnosis Same Operation/Procedure Performed ICD GEn Change - Full note dictated [place] BIV ICD [id number] Surgeon see signature line blacksmith assistant none Anesthesia: MAC Estimated blood loss: minimal Transfusion Required none Specimen Expl GEN Grafts/Implants new ICD Complications none STEFANY BOYCE MD Feb 21, 2017 08:20
--- NOTE | 2017-02-21 08:20 | SIPON ---
Date/Time of Note Date/Time of Note DATE: 02/21/17 TIME: 08:18 Operative Report Preoperative Diagnosis End of life ICD Postoperative Diagnosis Same Operation/Procedure Performed ICD GEn Change - Full note dictated [place] BIV ICD [id number] Surgeon see signature line assisted living care manager none Anesthesia: MAC Estimated blood loss: minimal Transfusion Required none Specimen Expl GEN Grafts/Implants new ICD Complications none STEFANY BOYCE MD Feb 21, 2017 08:20
--- NOTE | 2017-02-21 08:20 | SIPON ---
Date/Time of Note Date/Time of Note DATE: 02/21/17 TIME: 08:18 Operative Report Preoperative Diagnosis End of life ICD Postoperative Diagnosis Same Operation/Procedure Performed ICD GEn Change - Full note dictated [place] BIV ICD [id number] Surgeon see signature line child center assistant none Anesthesia: MAC Estimated blood loss: minimal Transfusion Required none Specimen Expl GEN Grafts/Implants new ICD Complications none STEFANY BOYCE MD Feb 21, 2017 08:20
[2017-02-21] MEDS ORDERED: morphine 2 MG INJ IV PRN (08:30)
[2017-02-21] MEDS ORDERED: ACETAMINOPHEN 325 MG TAB PO PRN (08:30)
[2017-02-21] MEDS ORDERED: AL HYDROX/MG HYDROX/SIMETH 30 ML CUP PO PRN (08:30)
[2017-02-21] MEDS: CEFAZOLIN 1 GM/50 ML (PMX) 50 ML IVPB SCH ×3 (09:06→20:51)
--- NOTE | 2017-02-21 09:22 | SP ---
DATE OF PROCEDURE: 02/21/2017 INDICATIONS FOR INITIAL IMPLANTATION: Nonischemic cardiomyopathy, left bundle branch block, EF of 2 0%. The patient has a biventricular ICD. She was 100% paced. REASON FOR REPLACEMENT: End of life of battery. PROCEDURE PERFORMED: 1. Fluoroscopy with interpretation. 2. Explant of an old ICD. 3. Implant of a new ICD. 4. High voltage lead testing without VT/VF induction. DEVICE INFORMATION: 1. Explanted device is [employer] N119, serial #[id number]. 2. Initial implant 05/01/2010, implanted device is [employer]ogen GRAINING OPERATOR-D device model numb er G141, serial #[id number]: 3. The RV lead is [employer] G fixation lead, 64 cm, model #34652, serial #[id number], this i s a chronic RV lead implanted in 05/31/2010. The right atrial lead is Easy Track dual electrode modesta d model #4543, serial #[id number], which was an LV lead and RA lead is a [employer], model #4096, serial #[id number] right atrial lead. 4. The chronic threshold right atrial has a 5.6 millivolts A-wave threshold 1.1 volts at 0.4 msec, impedance 105 ohms. RV has an R-wave 11.4 millivolts, threshold 1.0 volts at 0.4 msec, impedance 48 2 ohms. LV had an intrinsic wave of 3.7 millivolts, threshold 0.2 volts at 1.0 milliseconds with im pedance of 464 ohms. 5. High output impedance shock impedance was 46 ohms. Initial setting is biventricular paced at 50 , VF zone is 220, VT zone is 190, VT 1160 with ATP during charging. DESCRIPTION OF PROCEDURE: Informed consent was obtained. The patient was brought to the heart cath eterization, patient was on antibiotics. Left side of the chest was prepped and draped in usual zach rile fashion, 1% lidocaine was used for local analgesia. Anesthesiologist supervised airway and sed ation. Using #10 scalpel, a 3 cm incision was made using cautery and blunt dissection, the pocket w as created and the old generator was removed from the pocket, generator leads were removed from the generator and cleaned and then the leads were reattached to the new generator sequentially. The gen erator was placed inside the pocket after the pocket was washed with antibiotic solution. The syste m was checked once again and skin was closed with multiple layers of 2-0 Vicryl sutures. Steri-Stri ps were placed on top of the incision. Fluoroscopy was performed. The patient tolerated the proced ure well. She will follow up with me in the office. She will be on continuous antibiotics. Dictated By: STEFANY BOYCE MD ML/TAURUS Conf#: [id number] DID#: [id number]
--- NOTE | 2017-02-21 09:22 | SP ---
DATE OF PROCEDURE: 02/21/2017 INDICATIONS FOR INITIAL IMPLANTATION: Nonischemic cardiomyopathy, left bundle branch block, EF of 2 0%. The patient has a biventricular ICD. She was 100% paced. REASON FOR REPLACEMENT: End of life of battery. PROCEDURE PERFORMED: 1. Fluoroscopy with interpretation. 2. Explant of an old ICD. 3. Implant of a new ICD. 4. High voltage lead testing without VT/VF induction. DEVICE INFORMATION: 1. Explanted device is [employer] N119, serial #[id number]. 2. Initial implant 05/01/2010, implanted device is [employer] Inogen BAND EDGER-D device model numb er G141, serial #[id number]: 3. The RV lead is [employer] G fixation lead, 64 cm, model #97002, serial #[id number], this i s a chronic RV lead implanted in 05/31/2010. The right atrial lead is Easy Track dual electrode modesta d model #4543, serial #[id number], which was an LV lead and RA lead is a [employer], model #4096, serial #[id number] right atrial lead. 4. The chronic threshold right atrial has a 5.6 millivolts A-wave threshold 1.1 volts at 0.4 msec, impedance 105 ohms. RV has an R-wave 11.4 millivolts, threshold 1.0 volts at 0.4 msec, impedance 48 2 ohms. LV had an intrinsic wave of 3.7 millivolts, threshold 0.2 volts at 1.0 milliseconds with im pedance of 464 ohms. 5. High output impedance shock impedance was 46 ohms. Initial setting is biventricular paced at 50 , VF zone is 220, VT zone is 190, VT 1160 with ATP during charging. DESCRIPTION OF PROCEDURE: Informed consent was obtained. The patient was brought to the heart cath eterization, patient was on antibiotics. Left side of the chest was prepped and draped in usual zach rile fashion, 1% lidocaine was used for local analgesia. Anesthesiologist supervised airway and sed ation. Using #10 scalpel, a 3 cm incision was made using cautery and blunt dissection, the pocket w as created and the old generator was removed from the pocket, generator leads were removed from the generator and cleaned and then the leads were reattached to the new generator sequentially. The gen erator was placed inside the pocket after the pocket was washed with antibiotic solution. The syste m was checked once again and skin was closed with multiple layers of 2-0 Vicryl sutures. Steri-Stri ps were placed on top of the incision. Fluoroscopy was performed. The patient tolerated the proced ure well. She will follow up with me in the office. She will be on continuous antibiotics. Dictated By: STEFANY BOYCE MD ML/TAURUS Conf#: [id number] DID#: [id number]
--- NOTE | 2017-02-21 09:22 | SP ---
DATE OF PROCEDURE: 02/21/2017 INDICATIONS FOR INITIAL IMPLANTATION: Nonischemic cardiomyopathy, left bundle branch block, EF of 2 0%. The patient has a biventricular ICD. She was 100% paced. REASON FOR REPLACEMENT: End of life of battery. PROCEDURE PERFORMED: 1. Fluoroscopy with interpretation. 2. Explant of an old ICD. 3. Implant of a new ICD. 4. High voltage lead testing without VT/VF induction. DEVICE INFORMATION: 1. Explanted device is [employer] N119, serial #[id number]. 2. Initial implant 05/01/2010, implanted device is [employer]ogen DREDGE BOAT ENGINEER-D device model numb er G141, serial #[id number]: 3. The RV lead is [employer] G fixation lead, 64 cm, model #78919, serial #[id number], this i s a chronic RV lead implanted in 05/31/2010. The right atrial lead is Easy Track dual electrode modesta d model #4543, serial #[id number], which was an LV lead and RA lead is a [employer], model #4096, serial #[id number] right atrial lead. 4. The chronic threshold right atrial has a 5.6 millivolts A-wave threshold 1.1 volts at 0.4 msec, impedance 105 ohms. RV has an R-wave 11.4 millivolts, threshold 1.0 volts at 0.4 msec, impedance 48 2 ohms. LV had an intrinsic wave of 3.7 millivolts, threshold 0.2 volts at 1.0 milliseconds with im pedance of 464 ohms. 5. High output impedance shock impedance was 46 ohms. Initial setting is biventricular paced at 50 , VF zone is 220, VT zone is 190, VT 1160 with ATP during charging. DESCRIPTION OF PROCEDURE: Informed consent was obtained. The patient was brought to the heart cath eterization, patient was on antibiotics. Left side of the chest was prepped and draped in usual zach rile fashion, 1% lidocaine was used for local analgesia. Anesthesiologist supervised airway and sed ation. Using #10 scalpel, a 3 cm incision was made using cautery and blunt dissection, the pocket w as created and the old generator was removed from the pocket, generator leads were removed from the generator and cleaned and then the leads were reattached to the new generator sequentially. The gen erator was placed inside the pocket after the pocket was washed with antibiotic solution. The syste m was checked once again and skin was closed with multiple layers of 2-0 Vicryl sutures. Steri-Stri ps were placed on top of the incision. Fluoroscopy was performed. The patient tolerated the proced ure well. She will follow up with me in the office. She will be on continuous antibiotics. Dictated By: STEFANY BOYCE MD ML/TAURUS Conf#: [id number] DID#: [id number]
[2017-02-21] MEDS: ASPIRIN (EC) 81 MG TAB PO SCH (09:57)
--- NOTE | 2017-02-21 10:02 | RADRPT ---
PROCEDURE: XR Chest 1 view. CLINICAL INDICATION: Postop, device implant. TECHNIQUE: AP views of the chest were obtained. COMPARISON: February 20, 2017 FINDINGS: The heart is large. Calcified atherosclerosis is noted in the aorta. Left-sided dual chamber, biven tricular pacemaker/defibrillator has its leads over the heart and appears stable. Right-sided chest tube is stable. No pneumothorax is seen. Potential tubing over the left lung base is stable. Bilater al mid and lower lung infiltrates have decreased. Mild residual and small pleural effusions remain. The lungs are hyperexpanded. Diffuse interstitial prominence is seen in both lungs. Scarring is note d at the lung apices. Old, healed right-sided rib fractures are stable. Surgical clips are identifie d in the right axilla. Left-sided PICC line is grossly stable and continues to have its tip in the e xpected location of the mid subclavian vein. IMPRESSION: Cardiomegaly with calcified atherosclerosis in the aorta. Stable left-sided dual chamber pacemaker with its leads over the heart. No visualized pneumothorax. Stable right-sided chest tube. No visualized pneumothorax. Stable potential tubing or drain over the left lung base. Interval decrease in bilateral mid and lower lung infiltrates. Mild residual combined with small ple ural effusions remains. Hyperexpanded lungs with diffuse mild interstitial prominence in both lungs. Interstitial prominenc e could be chronic. Findings could reflect COPD. Scarring at the lung apices. RPTAT: AA .Johnnie Lugo MD, Date Time Electronically viewed and signed by .Johnnie Lugo MD, MD on 02/21/2017 10:02 .P/
[2017-02-21] MEDS ORDERED: MAGNESIUM SULFATE 1 GM/D5W 100 ML IVPB ONE (12:00)
--- NOTE | 2017-02-21 15:22 | CONS ---
Date/Time of Note Date/Time of Note DATE: 02/21/17 TIME: 15:19 Consult Date/Type/Reason Admit Date/Time Feb 12, 2017 at 09:06 Type of Consultation: Pulmonary Ordering Provider: GARY CROSS MD Subjective Patient comfortable. No new events. Objective Vital Signs Date Time Temp Pulse Resp B/P Pulse Ox O2 Delivery O2 Flow Rate FiO2 02/21/17 12:49 97 18 113/58 Nasal Cannula 1.0 02/21/17 11:26 97.6 97 02/20/17 15:06 36 Intake and Output 02/20/17 02/20/17 02/21/17 15:00 23:00 07:00 Intake Total 350 ml 240 ml Output Total 800 ml 1650 ml 400 ml Balance -800 ml -1300 ml -160 ml Exam GENERAL: Elderly lady appears comfortable at rest VITAL SIGNS: per chart NECK: Supple. No JVD or lymphadenopathy. CARDIAC EXAM: S1, S2. No added sounds or murmurs. CHEST: clear bilaterally, No added sounds, rales or wheezes ABDOMEN: Soft, nontender. No guarding or rebound. EXTREMITIES: No cyanosis, clubbing or edema. NEUROLOGIC: Generalized weakness. No focal deficits. Results/Medications Result Diagram: 02/20/17 0759 02/21/17 0623 Results 24 hrs Laboratory Tests Test 02/21/17 06:23 White Blood Count Pending Red Blood Count Pending Hemoglobin Pending Hematocrit Pending Mean Corpuscular Volume Pending Mean Corpuscular Hemoglobin Pending Mean Corpuscular Hemoglobin Concent Pending Red Cell Distribution Width Pending Platelet Count Pending Mean Platelet Volume Pending Prothrombin Time 12.5 Prothrombin Time Ratio 1.0 INR International Normalized Ratio 0.93 Sodium Level 135 Potassium Level 4.8 Chloride Level 101 Carbon Dioxide Level 27 Anion Gap 12 Blood Urea Nitrogen 13 Creatinine 0.95 Glucose Level 117 Calcium Level 8.7 Phosphorus Level 3.5 Magnesium Level 1.6 L Albumin 2.7 L Medications Current Medications Ondansetron HCl (Zofran Inj) 4 mg Q6H PRN IV NAUSEA AND/OR VOMITING Last administered on 02/18/17 20:46; Admin Dose 4 MG; Start 02/12/17 at 14:00 Acetaminophen (Tylenol Tab) 650 mg Q6H PRN PO PAIN LEVEL 1-3 OR FEVER Last administered on 02/18/17 20:47; Admin Dose 650 MG; Start 02/12/17 at 14:00 Oxycodone/ Acetaminophen (Percocet (5/ 325)) 1 tab Q6H PRN PO SEVERE PAIN LEVEL 7-10 Last administered on 02/20/17 11:59; Admin Dose 1 TAB; Start 02/12 at 14:00 Bisacodyl (Dulcolax) 5 mg DAILY PRN PO CONSTIPATION; Start 02/12/17 at 14:00 Pantoprazole (Protonix Tab) 40 mg DAILY@06 PO Last administered on 02/20/17 06:14; Admin Dose 40 MG; Start 02/13/17 at 06:00 Aspirin (Halfprin) 81 mg DAILY PO Last administered on 02/21/17 09:57; Admin Dose 81 MG; Start 02/13/17 at 09:00 Atorvastatin Calcium (Lipitor) 20 mg HS PO Last administered on 02/20/17 21: 18; Admin Dose 20 MG; Start 02/12/17 at 21:00 Guaifenesin/ Dextromethorphan (Robitussin Dm Liquid Cup) 5 ml Q4H PRN PO cough ; Start 02/15/17 at 20:00 IV Flush (NS 10 ml) 10 ml PRN PRN IV IV PROTOCOL; Start 02/16/17 at 13:00 Carvedilol (Coreg) 3.125 mg BID PO Last administered on 02/21/17 09:58; Admin Dose 3.125 MG; Start 02/17/17 at 21:00 Cephalexin (Keflex) 500 mg BID PO Last administered on 02/20/17 21:19; Admin Dose 500 MG; Start 02/19/17 at 09:00; Status Future Hold Hydralazine HCl (Apresoline) 10 mg Q8 PO Last administered on 02/21/17 14:37 ; Admin Dose 10 MG; Start 02/20/17 at 22:00 Acetaminophen (Tylenol Tab) 650 mg Q4H PRN PO NON-CARDIAC PAIN LEVEL (1-3); Start 02/21/17 at 08:30 Morphine Sulfate (morphine) 2 mg Q2H PRN IV FOR NON CARDIAC PAIN (4-10); Start 02/21/17 at 08:30 Al Hydrox/Mg Hydrox/Simethicone (Mag-Al Plus) 30 ml Q4H PRN PO GASTROINTESTINAL UPSET; Start 02/21/17 at 08:30 Ondansetron HCl 4 mg 4 mg Q4H PRN IV NAUSEA AND/OR VOMITING; Start 02/21/17 at 08:30 Cefazolin Sodium (Ancef 1 Gm/50 ml (Pmx)) 50 ml @ 100 mls/hr Q8 IVPB Last administered on 02/21/17t 14:36; Admin Dose 100 MLS/HR; Start 02/21/17 at 09: 00 Miscellaneous Information (* Miscellaneous Pharmacy Order) DC all Lovenox, Hepari... ONCE XX ; Start 02/21/17 at 08:30 Assessment/Plan Chief Complaint/Hosp Course IMP: 1. Recurrent large pleural effusion status post Pleurx catheter placement 2. Metastatic breast cancer 3. Hypoxemic respiratory insufficiency 4. Renal insufficiency RECS: 1. Drain Pleurx catheter every third day 2. CXR in am DC planning. Sharmin vaughan Problems: STAN MAC MD, [facility] Feb 21, 2017 15:22
[2017-02-21] MEDS: ATORVASTATIN 20 MG TAB PO SCH (20:52)
--- NOTE | 2017-02-21 22:33 | PN ---
Date/Time of Note Date/Time of Note DATE: 02/21/17 TIME: 22:31 Assessment/Plan VTE Prophylaxis VTE Prophylaxis Intervention: SCD's Lines/Catheters IV Catheter Type (from Nrs): MIDLINE ACCESS Urinary Cath still in place: Yes Reason Cath still needed: terminal illness/intractable pain Assessment/Plan Chief Complaint/Hosp Course Patient is a 81-year-old female with past medical history of metastatic breast cancer who presents for worsening malignant pleural effusions. Recently discharged 1. Bilateral pleural effusions, likely malignant - Pulmonology on board. pleurx cath drain Q3days - Continue on NC and wean as tolerating to keep saturations >90% 2. Hypotension- resolved - add medication as tolerating - will continue to monitor 3. Leukopenia-stable 4. Cardiomyopathy, congestive heart failure, acute on chronic ejection fraction 45% - Cardiology on board and recommendations appreciated. - Continue statin and aspirin. coreg restarted. titrate up as able. - ICD battery change done today 5. 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 Tay, oncology, outpatient. - Palliative on board and appreciated consultation. Son requesting that Dr. Anderson not seek out family. They will ask for his assistance as needed. Dr. Anderson made aware 6. Anemia of chronic disease - currently stable - will continue monitoring 7. Acute kidney injury - Nephrology consultation appreciated. improvement in renal function and signed off case. Will reconsult if any issues 8. Disposition - Continue monitoring on telemetry - DC tomorrow if stable and no acute events with HH for pleurex cath vs carpenter eval Problems: Subjective 24 Hr Interval Summary Free Text/Dictation no acute complaints, minimal to moderate pain at procedure site. Exam/Review of Systems Vital Signs Vitals Vital Signs Date Time Temp Pulse Resp B/P Pulse Ox O2 Delivery O2 Flow Rate FiO2 02/21/17 21:13 94 3.0 02/21/17 21:13 101 18 Nasal Cannula 02/21/17 19:47 98.3 110/60 02/20/17 15:06 36 Intake and Output 02/20/17 02/20/17 02/21/17 15:00 23:00 07:00 Intake Total 350 ml 240 ml Output Total 800 ml 1650 ml 400 ml Balance -800 ml -1300 ml -160 ml Exam Physical exam General: Patient is laying in bed and answers questions appropriately Mentation: Patient is alert and oriented 4, Head: Normocephalic atraumatic Eyes: EOMI, pupils reactive to light Neck: Supple, nontender, midline Respiratory: Clear to auscultation bilaterally Cardiovascular: regular rate, no obvious murmurs Gastrointestinal: non-tender to palpation, bowel sounds heard. Neurological: Moves all extremities spontaneously Skin: procedure incision site CDI, pleurex cath sites CDI bilaterally Results Result Diagram: 02/21/17 1540 02/21/17 1700 Results 24 hrs Laboratory Tests Test 02/21/17 06:23 02/21/17 15:40 02/21/17 17:00 Prothrombin Time 12.5 Prothrombin Time Ratio 1.0 INR International Normalized Ratio 0.93 Sodium Level 135 Potassium Level 4.8 3.5 Chloride Level 101 Carbon Dioxide Level 27 Anion Gap 12 Blood Urea Nitrogen 13 Creatinine 0.95 Glucose Level 117 Calcium Level 8.7 Phosphorus Level 3.5 Magnesium Level 1.6 L Albumin 2.7 L White Blood Count 3.9 L Red Blood Count 2.78 L Hemoglobin 9.1 L Hematocrit 26.9 L Mean Corpuscular Volume 96.8 Mean Corpuscular Hemoglobin 32.7 Mean Corpuscular Hemoglobin Concent 33.8 Red Cell Distribution Width 13.6 Platelet Count 252 Mean Platelet Volume 10.0 Neutrophils % 67.4 Lymphocytes % 6.6 L Monocytes % 17.4 H Eosinophils % 5.6 Basophils % 1.0 Nucleated Red Blood Cells % 0.0 Neutrophils # 2.6 Lymphocytes # 0.3 L Monocytes # 0.7 Eosinophils # 0.2 Basophils # 0.0 Nucleated Red Blood Cells # 0.0 Medications Medications Current Medications Ondansetron HCl (Zofran Inj) 4 mg Q6H PRN IV NAUSEA AND/OR VOMITING Last administered on 02/18/17 20:46; Admin Dose 4 MG; Start 02/12/17 at 14:00 Acetaminophen (Tylenol Tab) 650 mg Q6H PRN PO PAIN LEVEL 1-3 OR FEVER Last administered on 02/18/17 20:47; Admin Dose 650 MG; Start 02/12/17 at 14:00 Oxycodone/ Acetaminophen (Percocet (5/ 325)) 1 tab Q6H PRN PO SEVERE PAIN LEVEL 7-10 Last administered on 02/20/17 11:59; Admin Dose 1 TAB; Start 02/12 at 14:00 Bisacodyl (Dulcolax) 5 mg DAILY PRN PO CONSTIPATION; Start 02/12/17 at 14:00 Pantoprazole (Protonix Tab) 40 mg DAILY@06 PO Last administered on 02/20/17 06:14; Admin Dose 40 MG; Start 02/13/17 at 06:00 Aspirin (Halfprin) 81 mg DAILY PO Last administered on 02/21/17 09:57; Admin Dose 81 MG; Start 02/13/17 at 09:00 Atorvastatin Calcium (Lipitor) 20 mg HS PO Last administered on 02/21/17 20: 52; Admin Dose 20 MG; Start 02/12/17 at 21:00 Guaifenesin/ Dextromethorphan (Robitussin Dm Liquid Cup) 5 ml Q4H PRN PO cough ; Start 02/15/17 at 20:00 IV Flush (NS 10 ml) 10 ml PRN PRN IV IV PROTOCOL; Start 02/16/17 at 13:00 Carvedilol (Coreg) 3.125 mg BID PO Last administered on 02/21/17 20:52; Admin Dose 3.125 MG; Start 02/17/17 at 21:00 Cephalexin (Keflex) 500 mg BID PO Last administered on 02/20/17 21:19; Admin Dose 500 MG; Start 02/19/17 at 09:00; Status Future Hold Hydralazine HCl (Apresoline) 10 mg Q8 PO Last administered on 02/21/17 14:37 ; Admin Dose 10 MG; Start 02/20/17 at 22:00 Acetaminophen (Tylenol Tab) 650 mg Q4H PRN PO NON-CARDIAC PAIN LEVEL (1-3); Start 02/21/17 at 08:30 Morphine Sulfate (morphine) 2 mg Q2H PRN IV FOR NON CARDIAC PAIN (4-10); Start 02/21/17 at 08:30 Al Hydrox/Mg Hydrox/Simethicone (Mag-Al Plus) 30 ml Q4H PRN PO GASTROINTESTINAL UPSET; Start 02/21/17 at 08:30 Ondansetron HCl 4 mg 4 mg Q4H PRN IV NAUSEA AND/OR VOMITING; Start 02/21/17 at 08:30 Cefazolin Sodium (Ancef 1 Gm/50 ml (Pmx)) 50 ml @ 100 mls/hr Q8 IVPB Last administered on 02/21/17t 20:51; Admin Dose 100 MLS/HR; Start 02/21/17 at 09: 00 Miscellaneous Information (* Miscellaneous Pharmacy Order) DC all Lovenox, Hepari... ONCE XX ; Start 02/21/17 at 08:30 DIMA COVARRUBIAS Feb 21, 2017 22:33
--- NOTE | 2017-02-21 22:44 | RADRPT ---
Vent Rate: 94 bpm RR Interval: 0 msec [place] Interval: 128 msec QRS Duration: 130 msec QT Interval: 418 msec QTC Interval: 522 msec P-R-T [place]: 45 - 105 - 52 degrees Electronic ventricular pacemaker Electronically Signed By: Jarvis Rodriguez [id number]
--- NOTE | 2017-02-21 22:44 | RADRPT ---
Vent Rate: 94 bpm RR Interval: 0 msec [place] Interval: 128 msec QRS Duration: 130 msec QT Interval: 418 msec QTC Interval: 522 msec P-R-T [place]: 45 - 105 - 52 degrees Electronic ventricular pacemaker Electronically Signed By: Jarvis Rodriguez [id number]
--- NOTE | 2017-02-21 22:44 | RADRPT ---
Vent Rate: 94 bpm RR Interval: 0 msec [place] Interval: 128 msec QRS Duration: 130 msec QT Interval: 418 msec QTC Interval: 522 msec P-R-T [place]: 45 - 105 - 52 degrees Electronic ventricular pacemaker Electronically Signed By: Jarvis Rodriguez [id number]
[2017-02-22] VITALS (12 sets, daily range): BP systolic 110–130; BP diastolic 52–64; PULSE 86–105; RESP 19–23
[2017-02-22] MEDS: CEFAZOLIN 1 GM/50 ML (PMX) 50 ML IVPB SCH ×3 (05:30→22:36)
[2017-02-22] MEDS: PANTOPRAZOLE (EC) 40 MG TAB PO SCH (05:31)
[2017-02-22] MEDS: ALBUTEROL/IPRATROPIUM (NEB) 3 ML AMP HHN SCH ×3 (07:44→20:01)
[2017-02-22] MEDS: ASPIRIN (EC) 81 MG TAB PO SCH (07:58)
--- NOTE | 2017-02-22 11:54 | CONS ---
Date/Time of Note Date/Time of Note DATE: 02/22/17 TIME: 11:54 Consult Date/Type/Reason Admit Date/Time Feb 12, 2017 at 09:06 Type of Consultation: Pulmonary Ordering Provider: GARY CROSS MD Subjective No significant changes. Remains comfortable. Objective Vital Signs Date Time Temp Pulse Resp B/P Pulse Ox O2 Delivery O2 Flow Rate FiO2 02/22/17 11:26 98.8 94 20 110/57 94 02/22/17 08:30 Nasal Cannula 4.0 02/20/17 15:06 36 Intake and Output 02/21/17 02/21/17 02/22/17 15:00 23:00 07:00 Intake Total 1570 ml 330 ml Output Total 300 ml Balance 1270 ml 330 ml Exam GENERAL: Elderly lady appears comfortable at rest VITAL SIGNS: per chart NECK: Supple. No JVD or lymphadenopathy. CARDIAC EXAM: S1, S2. No added sounds or murmurs. CHEST: clear bilaterally, No added sounds, rales or wheezes ABDOMEN: Soft, nontender. No guarding or rebound. EXTREMITIES: No cyanosis, clubbing or edema. NEUROLOGIC: Generalized weakness. No focal deficits. Results/Medications Result Diagram: 02/22/17 1100 02/21/17 1700 Results 24 hrs Laboratory Tests Test 02/21/17 15:40 02/21/17 17:00 02/22/17 11:00 White Blood Count 3.9 L 4.6 L Red Blood Count 2.78 L 2.92 L Hemoglobin 9.1 L 9.4 L Hematocrit 26.9 L 28.6 L Mean Corpuscular Volume 96.8 97.9 Mean Corpuscular Hemoglobin 32.7 32.2 Mean Corpuscular Hemoglobin Concent 33.8 32.9 Red Cell Distribution Width 13.6 13.7 Platelet Count 252 282 Mean Platelet Volume 10.0 10.8 H Neutrophils % 67.4 69.0 Lymphocytes % 6.6 L 6.4 L Monocytes % 17.4 H 16.2 H Eosinophils % 5.6 5.5 Basophils % 1.0 1.1 Nucleated Red Blood Cells % 0.0 0.0 Neutrophils # 2.6 3.2 Lymphocytes # 0.3 L 0.3 L Monocytes # 0.7 0.7 Eosinophils # 0.2 0.3 Basophils # 0.0 0.1 Nucleated Red Blood Cells # 0.0 0.0 Potassium Level 3.5 Medications Current Medications Ondansetron HCl (Zofran Inj) 4 mg Q6H PRN IV NAUSEA AND/OR VOMITING Last administered on 02/18/17 20:46; Admin Dose 4 MG; Start 02/12/17 at 14:00 Acetaminophen (Tylenol Tab) 650 mg Q6H PRN PO PAIN LEVEL 1-3 OR FEVER Last administered on 02/18/17 20:47; Admin Dose 650 MG; Start 02/12/17 at 14:00 Oxycodone/ Acetaminophen (Percocet (5/ 325)) 1 tab Q6H PRN PO SEVERE PAIN LEVEL 7-10 Last administered on 02/20/17 11:59; Admin Dose 1 TAB; Start 02/12 at 14:00 Bisacodyl (Dulcolax) 5 mg DAILY PRN PO CONSTIPATION; Start 02/12/17 at 14:00 Pantoprazole (Protonix Tab) 40 mg DAILY@06 PO Last administered on 02/22/17 05:31; Admin Dose 40 MG; Start 02/13/17 at 06:00 Aspirin (Halfprin) 81 mg DAILY PO Last administered on 02/22/17 07:58; Admin Dose 81 MG; Start 02/13/17 at 09:00 Atorvastatin Calcium (Lipitor) 20 mg HS PO Last administered on 02/21/17 20: 52; Admin Dose 20 MG; Start 02/12/17 at 21:00 Guaifenesin/ Dextromethorphan (Robitussin Dm Liquid Cup) 5 ml Q4H PRN PO cough ; Start 02/15/17 at 20:00 IV Flush (NS 10 ml) 10 ml PRN PRN IV IV PROTOCOL; Start 02/16/17 at 13:00 Carvedilol (Coreg) 3.125 mg BID PO Last administered on 02/22/17 07:58; Admin Dose 3.125 MG; Start 02/17/17 at 21:00 Cephalexin (Keflex) 500 mg BID PO Last administered on 02/20/17 21:19; Admin Dose 500 MG; Start 02/19/17 at 09:00; Status Future Hold Hydralazine HCl (Apresoline) 10 mg Q8 PO Last administered on 02/22/17 05:31 ; Admin Dose 10 MG; Start 02/20/17 at 22:00 Acetaminophen (Tylenol Tab) 650 mg Q4H PRN PO NON-CARDIAC PAIN LEVEL (1-3); Start 02/21/17 at 08:30 Morphine Sulfate (morphine) 2 mg Q2H PRN IV FOR NON CARDIAC PAIN (4-10); Start 02/21/17 at 08:30 Al Hydrox/Mg Hydrox/Simethicone (Mag-Al Plus) 30 ml Q4H PRN PO GASTROINTESTINAL UPSET; Start 02/21/17 at 08:30 Ondansetron HCl 4 mg 4 mg Q4H PRN IV NAUSEA AND/OR VOMITING; Start 02/21/17 at 08:30 Cefazolin Sodium (Ancef 1 Gm/50 ml (Pmx)) 50 ml @ 100 mls/hr Q8 IVPB Last administered on 02/22/17t 05:30; Admin Dose 100 MLS/HR; Start 02/21/17 at 09: 00 Miscellaneous Information (* Miscellaneous Pharmacy Order) DC all Lovenox, Hepari... ONCE XX ; Start 02/21/17 at 08:30 Assessment/Plan Chief Complaint/Hosp Course IMP: 1. Recurrent large pleural effusion status post Pleurx catheter placement 2. Metastatic breast cancer 3. Hypoxemic respiratory insufficiency 4. Renal insufficiency RECS: 1. Drain Pleurx catheter every third day 2. CXR in am DC planning okay from primary standpoint Problems: STAN MAC MD, [facility] Feb 22, 2017 11:54
--- NOTE | 2017-02-22 13:05 | CONS ---
Date/Time of Note Date/Time of Note DATE: 02/22/17 TIME: 13:02 Assessment/Plan Assessment/Plan Chief Complaint/Hosp Course IMP: 1.CHF-systolic acute on chronic 2. cardiomyopathy 3.ICD near EOL now POD#1 s/p generator change 4.Pleural effusion 5.Leukopenia 6.Met Breast CA 7. Hyponatremia-resolved 8. Renal failure 9. Hypotension-improved of pressors 10.R pleural effusion s/p PLeur-x catheter placement Recc: -Tele -Follow volume status closely and drain catheter as necessary -Continue coreg and will add low dose ACEI afterload reduction as tolerated -D/C hydralazine -Continue statin/ASA -Continue abx prophylaxis Problems: Consultation Date/Type/Reason Admit Date/Time Feb 12, 2017 at 09:06 Initial Consult Date 02/12/2017 Type of Consultation: cardiology Reason for Consultation cardiomyopathy Referring Provider: GARY CROSS MD Exam/Review of Systems Vital Signs Vitals Vital Signs Date Time Temp Pulse Resp B/P Pulse Ox O2 Delivery O2 Flow Rate FiO2 02/22/17 12:26 87 18 93 Nasal Cannula 2.0 02/22/17 11:26 98.8 110/57 02/20/17 15:06 36 Intake and Output 02/21/17 02/21/17 02/22/17 15:00 23:00 07:00 Intake Total 1570 ml 330 ml Output Total 300 ml Balance 1270 ml 330 ml Exam Review of Systems: CONSTITUTIONAL: No fevers, chills. PULMONARY: No sob CARDIOVASCULAR: No chest pain/palpitations GASTROINTESTINAL: No nausea/vomiting. GENITOURINARY: No hematuria/dysuria. MUSCULOSKELETAL: No myagias/arthalgias. PSYCHIATRIC: The patient denies depression. NEUROLOGIC: No weakness Constitutional: alert Psych: no complaints Head: normocephalic ENMT: mucosa pink and moist Neck: jvd (9 cm water), supple Respiratory: diminished breath sounds (at bases/B) Cardiovascular: regular rate and rhythm Gastrointestinal: non-tender, soft Musculoskeletal: muscle tone (normal) Extremities: edema (none) Neurological: other (No focal deficits) Results Result Diagram: 02/22/17 1100 02/22/17 1100 Results 24 hrs Laboratory Tests Test 02/21/17 15:40 02/21/17 17:00 02/22/17 11:00 White Blood Count 3.9 L 4.6 L Red Blood Count 2.78 L 2.92 L Hemoglobin 9.1 L 9.4 L Hematocrit 26.9 L 28.6 L Mean Corpuscular Volume 96.8 97.9 Mean Corpuscular Hemoglobin 32.7 32.2 Mean Corpuscular Hemoglobin Concent 33.8 32.9 Red Cell Distribution Width 13.6 13.7 Platelet Count 252 282 Mean Platelet Volume 10.0 10.8 H Neutrophils % 67.4 69.0 Lymphocytes % 6.6 L 6.4 L Monocytes % 17.4 H 16.2 H Eosinophils % 5.6 5.5 Basophils % 1.0 1.1 Nucleated Red Blood Cells % 0.0 0.0 Neutrophils # 2.6 3.2 Lymphocytes # 0.3 L 0.3 L Monocytes # 0.7 0.7 Eosinophils # 0.2 0.3 Basophils # 0.0 0.1 Nucleated Red Blood Cells # 0.0 0.0 Potassium Level 3.5 3.4 L Sodium Level 138 Chloride Level 101 Carbon Dioxide Level 29 Anion Gap 11 Blood Urea Nitrogen 10 Creatinine 0.96 Glucose Level 129 Calcium Level 8.2 L Phosphorus Level 2.9 Magnesium Level 1.9 Albumin 3.0 L Medications Medications Current Medications Ondansetron HCl (Zofran Inj) 4 mg Q6H PRN IV NAUSEA AND/OR VOMITING Last administered on 02/18/17 20:46; Admin Dose 4 MG; Start 02/12/17 at 14:00 Acetaminophen (Tylenol Tab) 650 mg Q6H PRN PO PAIN LEVEL 1-3 OR FEVER Last administered on 02/18/17 20:47; Admin Dose 650 MG; Start 02/12/17 at 14:00 Oxycodone/ Acetaminophen (Percocet (5/ 325)) 1 tab Q6H PRN PO SEVERE PAIN LEVEL 7-10 Last administered on 02/20/17 11:59; Admin Dose 1 TAB; Start 02/12 at 14:00 Bisacodyl (Dulcolax) 5 mg DAILY PRN PO CONSTIPATION; Start 02/12/17 at 14:00 Pantoprazole (Protonix Tab) 40 mg DAILY@06 PO Last administered on 02/22/17 05:31; Admin Dose 40 MG; Start 02/13/17 at 06:00 Aspirin (Halfprin) 81 mg DAILY PO Last administered on 02/22/17 07:58; Admin Dose 81 MG; Start 02/13/17 at 09:00 Atorvastatin Calcium (Lipitor) 20 mg HS PO Last administered on 02/21/17 20: 52; Admin Dose 20 MG; Start 02/12/17 at 21:00 Guaifenesin/ Dextromethorphan (Robitussin Dm Liquid Cup) 5 ml Q4H PRN PO cough ; Start 02/15/17 at 20:00 IV Flush (NS 10 ml) 10 ml PRN PRN IV IV PROTOCOL; Start 02/16/17 at 13:00 Carvedilol (Coreg) 3.125 mg BID PO Last administered on 02/22/17 07:58; Admin Dose 3.125 MG; Start 02/17/17 at 21:00 Cephalexin (Keflex) 500 mg BID PO Last administered on 02/20/17 21:19; Admin Dose 500 MG; Start 02/19/17 at 09:00; Status Future Hold Hydralazine HCl (Apresoline) 10 mg Q8 PO Last administered on 02/22/17 05:31 ; Admin Dose 10 MG; Start 02/20/17 at 22:00 Acetaminophen (Tylenol Tab) 650 mg Q4H PRN PO NON-CARDIAC PAIN LEVEL (1-3); Start 02/21/17 at 08:30 Morphine Sulfate (morphine) 2 mg Q2H PRN IV FOR NON CARDIAC PAIN (4-10); Start 02/21/17 at 08:30 Al Hydrox/Mg Hydrox/Simethicone (Mag-Al Plus) 30 ml Q4H PRN PO GASTROINTESTINAL UPSET; Start 02/21/17 at 08:30 Ondansetron HCl 4 mg 4 mg Q4H PRN IV NAUSEA AND/OR VOMITING; Start 02/21/17 at 08:30 Cefazolin Sodium (Ancef 1 Gm/50 ml (Pmx)) 50 ml @ 100 mls/hr Q8 IVPB Last administered on 02/22/17 05:30; Admin Dose 100 MLS/HR; Start 02/21/17 at 09: 00 Miscellaneous Information (* Miscellaneous Pharmacy Order) DC all Lovenox, Hepari... ONCE XX ; Start 02/21/17 at 08:30 ROXIE VELARDE 25, 2017 13:05
[2017-02-22] MEDS ORDERED: CEPASTAT LOZENGE MT PRN (14:30)
[2017-02-22] MEDS ORDERED: POTASSIUM CHLORIDE 20 MEQ POWDER FOR ORAL SOLN PO ONE (14:30)
[2017-02-22] MEDS: GUAIFENESIN/DM 5ML CUP PO PRN (14:41)
--- NOTE | 2017-02-22 16:07 | CONS ---
Date/Time of Note Date/Time of Note DATE: 02/22/17 TIME: 15:40 Assessment/Plan Assessment/Plan Chief Complaint/Hosp Course Summary Assessment and Plan: Assessment: bilateral pleural effusions, likely malignant pulmonary edema Leukopenia Metastatic breast cancer to bone and pelvis Anemia of chronic disease Acute kidney injury Cardiomyopathy, congestive heart failure, acute on chronic ejection fraction 45% , Plan: Swallow evaluation tomorrow Pending results of swallow evaluation will assess need for possible PEG placement cardiac clearance Discussed plan with family who agrees Patient seen in collaboration with Chief Complaint/Reason for Visit: Dysphagia History of Present Illness: This is an 81-year-old [place]an-speaking female with multiple comorbidities,(an diplomatic interpreter/translator was used) including breast cancer with metastases to bone and pelvis. Patient is being evaluated for progressive dysphasia. Minimal dysphagia initially started about 3 weeks ago, dating she needed to drink water in order to swallow food. At this point she is now unable to swallow solids, liver, tolerating liquids, Jell-O, and puddings without difficulty. Currently complains of nausea, minimal abdominal pain described as cramping relieved when sitting up in chair denied any aggravating factors, constipation. She denies vomiting, diarrhea. Last colonoscopy more than 5 years ago. She gas a capsule endoscopy about a year ago, unsure on results of capsule endoscopy Current plan is for swallow evaluation tomorrow, pending results will assess need for PEG placement. With cardiac history she will need cardiac clearance prior procedure. Past Medical History: hx of ICD with recent generator change. bilateral pleural effusions, likely malignant pulmonary edema Metastatic breast cancer Allergies: No known allergies Family History: Pertinent family history Social History: Former smoker Denies alcohol use Denies drug use PHYSICAL EXAMINATION: GENERAL: Frail, alert and oriented 3, no distress SKIN: No lesions, no stigmata chronic liver disease, no evidence of bleeding diathesis LYMPHATIC: No palpable lymphadenopathy. HEAD: Normocephalic, atraumatic, no tenderness. EYES: Pupils equal reactive to light and accommodation, full extraocular movements, sclera clear, non-icteric, no discharge. EARS/NOSE AND THROAT: Ears normal, nose normal, oropharynx normal NECK: Supple, no masses, thyroid normal, JVP within normal limits, carotids normal without bruits. CHEST: pleurx cath drain CARDIOVASCULAR: Heart: Regular rate and rhythm, no murmurs, gallops or rubs. Peripheral pulses present within normal limits, no cyanosis, clubbing or edemas. No pulsatile abdominal mass RESPIRATORY: Diminished GASTROINTESTINAL AND LIVER: Abdomen: Soft, non tenderness, non-distended, no hernias, no masses, no organomegaly, no ascites, no guarding, no rebound tenderness, normoactive bowel sounds. Rectal: Deferred. GENITOURINARY:Female genitalia within normal limits. EXTREMITIES: No cyanosis, clubbing or edema. Problems: Consultation Date/Type/Reason Admit Date/Time Feb 12, 2017 at 09:06 Constitutional: no complaints, poor po Eyes: no complaints Respiratory: cough Gastrointestinal: constipation, decreased appetite, flatus, nausea, No diarrhea, No vomiting Psychological: no complaints Past Surgical History Past Surgical Hx: endoscopy (Colonoscopy about 1 year ago, colonoscopy more than 5 years ago), other Family History Significant Family History: no pertinent family hx Social History Alcohol Use: none Smoking Status: Current some day smoker Drug Use: none Exam/Review of Systems Vital Signs Vitals Vital Signs Date Time Temp Pulse Resp B/P Pulse Ox O2 Delivery O2 Flow Rate FiO2 02/22/17 12:26 87 18 93 Nasal Cannula 2.0 02/22/17 11:26 98.8 110/57 02/20/17 15:06 36 Intake and Output 02/21/17 02/21/17 02/22/17 15:00 23:00 07:00 Intake Total 1570 ml 330 ml Output Total 300 ml Balance 1270 ml 330 ml Results Result Diagram: 02/22/17 1100 02/22/17 1100 Results 24 hrs Laboratory Tests Test 02/21/17 17:00 02/22/17 11:00 Potassium Level 3.5 3.4 L White Blood Count 4.6 L Red Blood Count 2.92 L Hemoglobin 9.4 L Hematocrit 28.6 L Mean Corpuscular Volume 97.9 Mean Corpuscular Hemoglobin 32.2 Mean Corpuscular Hemoglobin Concent 32.9 Red Cell Distribution Width 13.7 Platelet Count 282 Mean Platelet Volume 10.8 H Neutrophils % 69.0 Lymphocytes % 6.4 L Monocytes % 16.2 H Eosinophils % 5.5 Basophils % 1.1 Nucleated Red Blood Cells % 0.0 Neutrophils # 3.2 Lymphocytes # 0.3 L Monocytes # 0.7 Eosinophils # 0.3 Basophils # 0.1 Nucleated Red Blood Cells # 0.0 Sodium Level 138 Chloride Level 101 Carbon Dioxide Level 29 Anion Gap 11 Blood Urea Nitrogen 10 Creatinine 0.96 Glucose Level 129 Calcium Level 8.2 L Phosphorus Level 2.9 Magnesium Level 1.9 Albumin 3.0 L Medications Medications Current Medications Ondansetron HCl (Zofran Inj) 4 mg Q6H PRN IV NAUSEA AND/OR VOMITING Last administered on 02/18/17 20:46; Admin Dose 4 MG; Start 02/12/17 at 14:00 Acetaminophen (Tylenol Tab) 650 mg Q6H PRN PO PAIN LEVEL 1-3 OR FEVER Last administered on 02/18/17 20:47; Admin Dose 650 MG; Start 02/12/17 at 14:00 Oxycodone/ Acetaminophen (Percocet (5/ 325)) 1 tab Q6H PRN PO SEVERE PAIN LEVEL 7-10 Last administered on 02/20/17 11:59; Admin Dose 1 TAB; Start 02/12 at 14:00 Bisacodyl (Dulcolax) 5 mg DAILY PRN PO CONSTIPATION; Start 02/12/17 at 14:00 Pantoprazole (Protonix Tab) 40 mg DAILY@06 PO Last administered on 02/22/17 05:31; Admin Dose 40 MG; Start 02/13/17 at 06:00 Aspirin (Halfprin) 81 mg DAILY PO Last administered on 02/22/17 07:58; Admin Dose 81 MG; Start 02/13/17 at 09:00 Atorvastatin Calcium (Lipitor) 20 mg HS PO Last administered on 02/21/17 20: 52; Admin Dose 20 MG; Start 02/12/17 at 21:00 Guaifenesin/ Dextromethorphan (Robitussin Dm Liquid Cup) 5 ml Q4H PRN PO cough Last administered on 02/22/17 14:41; Admin Dose 5 ML; Start 02/15/17 at 20:00 IV Flush (NS 10 ml) 10 ml PRN PRN IV IV PROTOCOL; Start 02/16/17 at 13:00 Carvedilol (Coreg) 3.125 mg BID PO Last administered on 02/22/17 07:58; Admin Dose 3.125 MG; Start 02/17/17 at 21:00 Cephalexin (Keflex) 500 mg BID PO Last administered on 02/20/17 21:19; Admin Dose 500 MG; Start 02/19/17 at 09:00; Status Future Hold Hydralazine HCl (Apresoline) 10 mg Q8 PO Last administered on 02/22/17 14:17 ; Admin Dose 10 MG; Start 02/20/17 at 22:00 Acetaminophen (Tylenol Tab) 650 mg Q4H PRN PO NON-CARDIAC PAIN LEVEL (1-3); Start 02/21/17 at 08:30 Morphine Sulfate (morphine) 2 mg Q2H PRN IV FOR NON CARDIAC PAIN (4-10); Start 02/21/17 at 08:30 Al Hydrox/Mg Hydrox/Simethicone (Mag-Al Plus) 30 ml Q4H PRN PO GASTROINTESTINAL UPSET; Start 02/21/17 at 08:30 Ondansetron HCl 4 mg 4 mg Q4H PRN IV NAUSEA AND/OR VOMITING; Start 02/21/17 at 08:30 Cefazolin Sodium (Ancef 1 Gm/50 ml (Pmx)) 50 ml @ 100 mls/hr Q8 IVPB Last administered on 02/22/17 14:18; Admin Dose 100 MLS/HR; Start 02/21/17 at 09: 00 Miscellaneous Information (* Miscellaneous Pharmacy Order) DC all Lovenox, Hepari... ONCE XX ; Start 02/21/17 at 08:30 Phenol (Cepastat Lozenge) 1 lozenge Q4 PRN MT sore throat; Start 02/22/17 at 14:30 Copies To: CC: OXANA PARIS MD, VICTORIA Feb 22, 2017 15:53
--- NOTE | 2017-02-22 17:41 | PN ---
Date/Time of Note Date/Time of Note DATE: 02/22/17 TIME: 17:40 Assessment/Plan VTE Prophylaxis VTE Prophylaxis Intervention: ambulation Lines/Catheters IV Catheter Type (from Nrs): Mid Line Urinary Cath still in place: Yes Reason Cath still needed: terminal illness/intractable pain Assessment/Plan Chief Complaint/Hosp Course Patient is a 81-year-old female with past medical history of metastatic breast cancer who presents for worsening malignant pleural effusions. Recently discharged 1. Bilateral pleural effusions, likely malignant - Pulmonology on board. pleurx cath drain Q3days - Continue on NC and wean as tolerating to keep saturations >90% #dysphasia -swallow studies pending tomorrow -GI consulted 2. Hypotension- resolved - add medication as tolerating - will continue to monitor 3. Leukopenia-stable 4. Cardiomyopathy, congestive heart failure, acute on chronic ejection fraction 45% - Cardiology on board and recommendations appreciated. - Continue statin and aspirin. coreg restarted. titrate up as able. - ICD battery change done 5. 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 Tay, oncology, outpatient. - Palliative on board and appreciated consultation. Son requesting that Dr. Anderson not seek out family. They will ask for his assistance as needed. Dr. Anderson made aware 6. Anemia of chronic disease - currently stable - will continue monitoring 7. Acute kidney injury - Nephrology consultation appreciated. improvement in renal function and signed off case. Will reconsult if any issues 8. Disposition - Continue monitoring on telemetry - DC tomorrow if stable and no acute events with HH for pleurex cath vs carpenter eval Problems: Subjective 24 Hr Interval Summary Free Text/Dictation new onset difficulty swallowing Exam/Review of Systems Vital Signs Vitals Vital Signs Date Time Temp Pulse Resp B/P Pulse Ox O2 Delivery O2 Flow Rate FiO2 02/22/17 16:24 98.0 102 20 130/60 96 02/22/17 12:26 Nasal Cannula 2.0 02/20/17 15:06 36 Intake and Output 02/21/17 02/21/17 02/22/17 15:00 23:00 07:00 Intake Total 1570 ml 330 ml Output Total 300 ml Balance 1270 ml 330 ml Exam Physical exam General: Patient is laying in bed and answers questions appropriately Mentation: Patient is alert and oriented 4, Head: Normocephalic atraumatic Eyes: EOMI, pupils reactive to light Neck: Supple, nontender, midline Respiratory: Clear to auscultation bilaterally Cardiovascular: regular rate, no obvious murmurs Gastrointestinal: non-tender to palpation, bowel sounds heard. Neurological: Moves all extremities spontaneously Skin: procedure incision site CDI, pleurex cath sites CDI bilaterally Results Result Diagram: 02/22/17 1100 02/22/17 1100 Results 24 hrs Laboratory Tests Test 02/22/17 11:00 White Blood Count 4.6 L Red Blood Count 2.92 L Hemoglobin 9.4 L Hematocrit 28.6 L Mean Corpuscular Volume 97.9 Mean Corpuscular Hemoglobin 32.2 Mean Corpuscular Hemoglobin Concent 32.9 Red Cell Distribution Width 13.7 Platelet Count 282 Mean Platelet Volume 10.8 H Neutrophils % 69.0 Lymphocytes % 6.4 L Monocytes % 16.2 H Eosinophils % 5.5 Basophils % 1.1 Nucleated Red Blood Cells % 0.0 Neutrophils # 3.2 Lymphocytes # 0.3 L Monocytes # 0.7 Eosinophils # 0.3 Basophils # 0.1 Nucleated Red Blood Cells # 0.0 Sodium Level 138 Potassium Level 3.4 L Chloride Level 101 Carbon Dioxide Level 29 Anion Gap 11 Blood Urea Nitrogen 10 Creatinine 0.96 Glucose Level 129 Calcium Level 8.2 L Phosphorus Level 2.9 Magnesium Level 1.9 Albumin 3.0 L Medications Medications Current Medications Ondansetron HCl (Zofran Inj) 4 mg Q6H PRN IV NAUSEA AND/OR VOMITING Last administered on 02/18/17 20:46; Admin Dose 4 MG; Start 02/12/17 at 14:00 Acetaminophen (Tylenol Tab) 650 mg Q6H PRN PO PAIN LEVEL 1-3 OR FEVER Last administered on 02/18/17 20:47; Admin Dose 650 MG; Start 02/12/17 at 14:00 Oxycodone/ Acetaminophen (Percocet (5/ 325)) 1 tab Q6H PRN PO SEVERE PAIN LEVEL 7-10 Last administered on 02/20/17 11:59; Admin Dose 1 TAB; Start 02/12 at 14:00 Bisacodyl (Dulcolax) 5 mg DAILY PRN PO CONSTIPATION; Start 02/12/17 at 14:00 Pantoprazole (Protonix Tab) 40 mg DAILY@06 PO Last administered on 02/22/17 05:31; Admin Dose 40 MG; Start 02/13/17 at 06:00 Aspirin (Halfprin) 81 mg DAILY PO Last administered on 02/22/17 07:58; Admin Dose 81 MG; Start 02/13/17 at 09:00 Atorvastatin Calcium (Lipitor) 20 mg HS PO Last administered on 02/21/17 20: 52; Admin Dose 20 MG; Start 02/12/17 at 21:00 Guaifenesin/ Dextromethorphan (Robitussin Dm Liquid Cup) 5 ml Q4H PRN PO cough Last administered on 02/22/17 14:41; Admin Dose 5 ML; Start 02/15/17 at 20:00 IV Flush (NS 10 ml) 10 ml PRN PRN IV IV PROTOCOL; Start 02/16/17 at 13:00 Carvedilol (Coreg) 3.125 mg BID PO Last administered on 02/22/17 07:58; Admin Dose 3.125 MG; Start 02/17/17 at 21:00 Cephalexin (Keflex) 500 mg BID PO Last administered on 02/20/17 21:19; Admin Dose 500 MG; Start 02/19/17 at 09:00; Status Future Hold Hydralazine HCl (Apresoline) 10 mg Q8 PO Last administered on 02/22/17 14:17 ; Admin Dose 10 MG; Start 02/20/17 at 22:00 Acetaminophen (Tylenol Tab) 650 mg Q4H PRN PO NON-CARDIAC PAIN LEVEL (1-3); Start 02/21/17 at 08:30 Morphine Sulfate (morphine) 2 mg Q2H PRN IV FOR NON CARDIAC PAIN (4-10); Start 02/21/17 at 08:30 Al Hydrox/Mg Hydrox/Simethicone (Mag-Al Plus) 30 ml Q4H PRN PO GASTROINTESTINAL UPSET; Start 02/21/17 at 08:30 Ondansetron HCl 4 mg 4 mg Q4H PRN IV NAUSEA AND/OR VOMITING; Start 02/21/17 at 08:30 Cefazolin Sodium (Ancef 1 Gm/50 ml (Pmx)) 50 ml @ 100 mls/hr Q8 IVPB Last administered on 02/22/17 14:18; Admin Dose 100 MLS/HR; Start 02/21/17 at 09: 00 Miscellaneous Information (* Miscellaneous Pharmacy Order) DC all Lovenox, Hepari... ONCE XX ; Start 02/21/17 at 08:30 Phenol (Cepastat Lozenge) 1 lozenge Q4 PRN MT sore throat; Start 02/22/17 at 14:30 DIMA COVARRUBIAS Feb 22, 2017 17:41
[2017-02-22] MEDS: ATORVASTATIN 20 MG TAB PO SCH (20:41)
[2017-02-23] VITALS (12 sets, daily range): BP systolic 92–123; BP diastolic 50–70; PULSE 95–103; RESP 17–20
[2017-02-23] MEDS: PANTOPRAZOLE (EC) 40 MG TAB PO SCH (06:47)
[2017-02-23] MEDS: CEFAZOLIN 1 GM/50 ML (PMX) 50 ML IVPB SCH ×3 (06:47→22:30)
[2017-02-23] MEDS: ALBUTEROL/IPRATROPIUM (NEB) 3 ML AMP HHN SCH ×3 (08:04→19:53)
[2017-02-23] MEDS: ASPIRIN (EC) 81 MG TAB PO SCH (08:21)
--- NOTE | 2017-02-23 12:30 | CONS ---
Date/Time of Note Date/Time of Note DATE: 02/23/17 TIME: 12:29 Consult Date/Type/Reason Admit Date/Time Feb 12, 2017 at 09:06 Type of Consultation: Pulmonary Ordering Provider: GARY CROSS MD Subjective Patient comfortable this morning. Sitting up in bed no respiratory distress. Objective Vital Signs Date Time Temp Pulse Resp B/P Pulse Ox O2 Delivery O2 Flow Rate FiO2 02/23/17 12:22 99 02/23/17 11:11 97.9 18 99/55 98 02/23/17 08:15 Nasal Cannula 2.0 02/23/17 08:05 28 Intake and Output 02/22/17 02/22/17 02/23/17 15:00 23:00 07:00 Intake Total 600 ml 450 ml Balance 600 ml 450 ml Exam GENERAL: Elderly lady appears comfortable at rest VITAL SIGNS: per chart NECK: Supple. No JVD or lymphadenopathy. CARDIAC EXAM: S1, S2. No added sounds or murmurs. CHEST: clear bilaterally, No added sounds, rales or wheezes ABDOMEN: Soft, nontender. No guarding or rebound. EXTREMITIES: No cyanosis, clubbing or edema. NEUROLOGIC: Generalized weakness. No focal deficits. Results/Medications Result Diagram: 02/22/17 1100 02/22/17 1100 Medications Current Medications Ondansetron HCl (Zofran Inj) 4 mg Q6H PRN IV NAUSEA AND/OR VOMITING Last administered on 02/18/17 20:46; Admin Dose 4 MG; Start 02/12/17 at 14:00 Acetaminophen (Tylenol Tab) 650 mg Q6H PRN PO PAIN LEVEL 1-3 OR FEVER Last administered on 02/18/17 20:47; Admin Dose 650 MG; Start 02/12/17 at 14:00 Oxycodone/ Acetaminophen (Percocet (5/ 325)) 1 tab Q6H PRN PO SEVERE PAIN LEVEL 7-10 Last administered on 02/20/17 11:59; Admin Dose 1 TAB; Start 02/12 at 14:00 Bisacodyl (Dulcolax) 5 mg DAILY PRN PO CONSTIPATION; Start 02/12/17 at 14:00 Pantoprazole (Protonix Tab) 40 mg DAILY@06 PO Last administered on 02/23/17 06:47; Admin Dose 40 MG; Start 02/13/17 at 06:00 Aspirin (Halfprin) 81 mg DAILY PO Last administered on 02/23/17 08:21; Admin Dose 81 MG; Start 02/13/17 at 09:00 Atorvastatin Calcium (Lipitor) 20 mg HS PO Last administered on 02/22/17 20: 41; Admin Dose 20 MG; Start 02/12/17 at 21:00 Guaifenesin/ Dextromethorphan (Robitussin Dm Liquid Cup) 5 ml Q4H PRN PO cough Last administered on 02/22/17 14:41; Admin Dose 5 ML; Start 02/15/17 at 20:00 IV Flush (NS 10 ml) 10 ml PRN PRN IV IV PROTOCOL; Start 02/16/17 at 13:00 Carvedilol (Coreg) 3.125 mg BID PO Last administered on 02/23/17 08:21; Admin Dose 3.125 MG; Start 02/17/17 at 21:00 Cephalexin (Keflex) 500 mg BID PO Last administered on 02/20/17 21:19; Admin Dose 500 MG; Start 02/19/17 at 09:00; Status Future Hold Hydralazine HCl (Apresoline) 10 mg Q8 PO Last administered on 02/22/17 14:17 ; Admin Dose 10 MG; Start 02/20/17 at 22:00 Acetaminophen (Tylenol Tab) 650 mg Q4H PRN PO NON-CARDIAC PAIN LEVEL (1-3); Start 02/21/17 at 08:30 Morphine Sulfate (morphine) 2 mg Q2H PRN IV FOR NON CARDIAC PAIN (4-10); Start 02/21/17 at 08:30 Al Hydrox/Mg Hydrox/Simethicone (Mag-Al Plus) 30 ml Q4H PRN PO GASTROINTESTINAL UPSET; Start 02/21/17 at 08:30 Ondansetron HCl 4 mg 4 mg Q4H PRN IV NAUSEA AND/OR VOMITING; Start 02/21/17 at 08:30 Cefazolin Sodium (Ancef 1 Gm/50 ml (Pmx)) 50 ml @ 100 mls/hr Q8 IVPB Last administered on 02/23/17 06:47; Admin Dose 100 MLS/HR; Start 02/21/17 at 09: 00 Miscellaneous Information (* Miscellaneous Pharmacy Order) DC all Lovenox, Hepari... ONCE XX ; Start 02/21/17 at 08:30 Phenol (Cepastat Lozenge) 1 lozenge Q4 PRN MT sore throat Last administered on 02/23/17t 11:21; Admin Dose 1 LOZENGE; Start 02/22/17 at 14:30 Assessment/Plan Chief Complaint/Hosp Course IMP: 1. Recurrent large pleural effusion status post Pleurx catheter placement 2. Metastatic breast cancer 3. Hypoxemic respiratory insufficiency 4. Renal insufficiency RECS: 1. Drain Pleurx catheter every third day Chest x-ray shows minimal pleural effusions DC planning okay from primary standpoint Problems: STAN MAC MD, [facility] Feb 23, 2017 12:30
--- NOTE | 2017-02-23 13:27 | PN ---
Date/Time of Note Date/Time of Note DATE: 02/23/17 TIME: 13:24 Assessment/Plan VTE Prophylaxis VTE Prophylaxis Intervention: SCD's Lines/Catheters IV Catheter Type (from Nrs): Mid Line Urinary Cath still in place: Yes Reason Cath still needed: other (indicate) (monitor output) Assessment/Plan Chief Complaint/Hosp Course Summary Assessment and Plan: Assessment: bilateral pleural effusions, likely malignant pulmonary edema Leukopenia Metastatic breast cancer to bone and pelvis Anemia of chronic disease Acute kidney injury Cardiomyopathy, congestive heart failure, acute on chronic ejection fraction 45% , Plan: Bedside swallow eval completed Diet has been changed Barium swallow been rescheduled to Monday Will make follow-up recommendations based on results of barium swallow If plan to move forward with PEG will need cardiac clearance prior to procedure Discussed plan with family who agrees Patient seen in collaboration with Subjective: Course reviewed with nursing staff Patient interviewed and examined All labs, imaging and other results reviewed The patient resting in bed, appears to be comfortable no complaints at this time PHYSICAL EXAMINATION: GENERAL: Frail, alert and oriented 3, no distress SKIN: No lesions, no stigmata chronic liver disease, no evidence of bleeding diathesis LYMPHATIC: No palpable lymphadenopathy. HEAD: Normocephalic, atraumatic, no tenderness. EYES: Pupils equal reactive to light and accommodation, full extraocular movements, sclera clear, non-icteric, no discharge. EARS/NOSE AND THROAT: Ears normal, nose normal, oropharynx normal NECK: Supple, no masses, thyroid normal, JVP within normal limits, carotids normal without bruits. CHEST: pleurx cath drain CARDIOVASCULAR: Heart: Regular rate and rhythm, no murmurs, gallops or rubs. Peripheral pulses present within normal limits, no cyanosis, clubbing or edemas. No pulsatile abdominal mass RESPIRATORY: Diminished GASTROINTESTINAL AND LIVER: Abdomen: Soft, non tenderness, non-distended, no hernias, no masses, no organomegaly, no ascites, no guarding, no rebound tenderness, normoactive bowel sounds. Rectal: Deferred. GENITOURINARY:Female genitalia within normal limits. EXTREMITIES: No cyanosis, clubbing or edema. Problems: Exam/Review of Systems Vital Signs Vitals Vital Signs Date Time Temp Pulse Resp B/P Pulse Ox O2 Delivery O2 Flow Rate FiO2 02/23/17 13:06 78 18 Nasal Cannula 2.0 28 02/23/17 11:11 97.9 99/55 98 Intake and Output 02/22/17 02/22/17 02/23/17 14:59 22:59 06:59 Intake Total 600 ml 450 ml Balance 600 ml 450 ml Results Result Diagram: 02/22/17 1100 02/22/17 1100 Medications Medications Current Medications Ondansetron HCl (Zofran Inj) 4 mg Q6H PRN IV NAUSEA AND/OR VOMITING Last administered on 02/18/17 20:46; Admin Dose 4 MG; Start 02/12/17 at 14:00 Acetaminophen (Tylenol Tab) 650 mg Q6H PRN PO PAIN LEVEL 1-3 OR FEVER Last administered on 02/18/17 20:47; Admin Dose 650 MG; Start 02/12/17 at 14:00 Oxycodone/ Acetaminophen (Percocet (5/ 325)) 1 tab Q6H PRN PO SEVERE PAIN LEVEL 7-10 Last administered on 02/20/17 11:59; Admin Dose 1 TAB; Start 02/12 at 14:00 Bisacodyl (Dulcolax) 5 mg DAILY PRN PO CONSTIPATION; Start 02/12/17 at 14:00 Pantoprazole (Protonix Tab) 40 mg DAILY@06 PO Last administered on 02/23/17 06:47; Admin Dose 40 MG; Start 02/13/17 at 06:00 Aspirin (Halfprin) 81 mg DAILY PO Last administered on 02/23/17 08:21; Admin Dose 81 MG; Start 02/13/17 at 09:00 Atorvastatin Calcium (Lipitor) 20 mg HS PO Last administered on 02/22/17 20: 41; Admin Dose 20 MG; Start 02/12/17 at 21:00 Guaifenesin/ Dextromethorphan (Robitussin Dm Liquid Cup) 5 ml Q4H PRN PO cough Last administered on 02/22/17 14:41; Admin Dose 5 ML; Start 02/15/17 at 20:00 IV Flush (NS 10 ml) 10 ml PRN PRN IV IV PROTOCOL; Start 02/16/17 at 13:00 Carvedilol (Coreg) 3.125 mg BID PO Last administered on 02/23/17 08:21; Admin Dose 3.125 MG; Start 02/17/17 at 21:00 Cephalexin (Keflex) 500 mg BID PO Last administered on 02/20/17 21:19; Admin Dose 500 MG; Start 02/19/17 at 09:00; Status Future Hold Hydralazine HCl (Apresoline) 10 mg Q8 PO Last administered on 02/22/17 14:17 ; Admin Dose 10 MG; Start 02/20/17 at 22:00 Acetaminophen (Tylenol Tab) 650 mg Q4H PRN PO NON-CARDIAC PAIN LEVEL (1-3); Start 02/21/17 at 08:30 Morphine Sulfate (morphine) 2 mg Q2H PRN IV FOR NON CARDIAC PAIN (4-10); Start 02/21/17 at 08:30 Al Hydrox/Mg Hydrox/Simethicone (Mag-Al Plus) 30 ml Q4H PRN PO GASTROINTESTINAL UPSET; Start 02/21/17 at 08:30 Ondansetron HCl 4 mg 4 mg Q4H PRN IV NAUSEA AND/OR VOMITING; Start 02/21/17 at 08:30 Cefazolin Sodium (Ancef 1 Gm/50 ml (Pmx)) 50 ml @ 100 mls/hr Q8 IVPB Last administered on 02/23/17 06:47; Admin Dose 100 MLS/HR; Start 02/21/17 at 09: 00 Miscellaneous Information (* Miscellaneous Pharmacy Order) DC all Lovenox, Hepari... ONCE XX ; Start 02/21/17 at 08:30 Phenol (Cepastat Lozenge) 1 lozenge Q4 PRN MT sore throat Last administered on 02/23/17 11:21; Admin Dose 1 LOZENGE; Start 02/22/17 at 14:30 DINA SORIANO Feb 23, 2017 13:27
--- NOTE | 2017-02-23 16:08 | PN ---
Date/Time of Note Date/Time of Note DATE: 02/23/17 TIME: 16:05 Assessment/Plan VTE Prophylaxis VTE Prophylaxis Intervention: SCD's Lines/Catheters IV Catheter Type (from Nrs): Mid Line Urinary Cath still in place: Yes Reason Cath still needed: terminal illness/intractable pain Assessment/Plan Chief Complaint/Hosp Course Patient is a 81-year-old female with past medical history of metastatic breast cancer who presents for worsening malignant pleural effusions. Recently discharged #. Bilateral pleural effusions, likely malignant - Pulmonology on board. pleurx cath drain Q3days - Continue on NC and wean as tolerating to keep saturations >90% #dysphasia -swallow study noted, no significant issues -barium swallow still ordered, will do sat. -GI consulted #. Hypotension- resolved - add medication as tolerating - will continue to monitor #. Leukopenia-stable #. Cardiomyopathy, congestive heart failure, acute on chronic ejection fraction 45% - Cardiology on board and recommendations appreciated. - Continue statin and aspirin. coreg restarted. titrate up as able. - ICD battery change done #. 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 Tay, oncology, outpatient. - Palliative on board and appreciated consultation. Son requesting that Dr. Anderson not seek out family. They will ask for his assistance as needed. Dr. Anderson made aware #. Anemia of chronic disease - currently stable - will continue monitoring #. Acute kidney injury, resolved - Nephrology consultation appreciated. improvement in renal function and signed off case. Will reconsult if any issues #. Disposition - downgraded to med/surg - f/u with GI recs, eval swallowing Problems: Subjective 24 Hr Interval Summary Free Text/Dictation Still has issues swallowing Exam/Review of Systems Vital Signs Vitals Vital Signs Date Time Temp Pulse Resp B/P Pulse Ox O2 Delivery O2 Flow Rate FiO2 02/23/17 15:30 97.8 98 18 122/58 95 02/23/17 13:06 Nasal Cannula 2.0 28 Intake and Output 02/22/17 02/22/17 02/23/17 15:00 23:00 07:00 Intake Total 600 ml 450 ml Balance 600 ml 450 ml Exam Physical exam General: Patient is laying in bed and answers questions appropriately Mentation: Patient is alert and oriented 4, Head: Normocephalic atraumatic Eyes: EOMI, pupils reactive to light Neck: Supple, nontender, midline Respiratory: Clear to auscultation bilaterally Cardiovascular: regular rate, no obvious murmurs Gastrointestinal: non-tender to palpation, bowel sounds heard. Neurological: Moves all extremities spontaneously Skin: procedure incision site CDI, pleurex cath sites CDI bilaterally Results Result Diagram: 02/22/17 1100 02/22/17 1100 Medications Medications Current Medications Ondansetron HCl (Zofran Inj) 4 mg Q6H PRN IV NAUSEA AND/OR VOMITING Last administered on 02/18/17 20:46; Admin Dose 4 MG; Start 02/12/17 at 14:00 Acetaminophen (Tylenol Tab) 650 mg Q6H PRN PO PAIN LEVEL 1-3 OR FEVER Last administered on 02/18/17 20:47; Admin Dose 650 MG; Start 02/12/17 at 14:00 Oxycodone/ Acetaminophen (Percocet (5/ 325)) 1 tab Q6H PRN PO SEVERE PAIN LEVEL 7-10 Last administered on 02/20/17 11:59; Admin Dose 1 TAB; Start 02/12 at 14:00 Bisacodyl (Dulcolax) 5 mg DAILY PRN PO CONSTIPATION; Start 02/12/17 at 14:00 Pantoprazole (Protonix Tab) 40 mg DAILY@06 PO Last administered on 02/23/17 06:47; Admin Dose 40 MG; Start 02/13/17 at 06:00 Aspirin (Halfprin) 81 mg DAILY PO Last administered on 02/23/17 08:21; Admin Dose 81 MG; Start 02/13/17 at 09:00 Atorvastatin Calcium (Lipitor) 20 mg HS PO Last administered on 02/22/17 20: 41; Admin Dose 20 MG; Start 02/12/17 at 21:00 Guaifenesin/ Dextromethorphan (Robitussin Dm Liquid Cup) 5 ml Q4H PRN PO cough Last administered on 02/22/17 14:41; Admin Dose 5 ML; Start 02/15/17 at 20:00 IV Flush (NS 10 ml) 10 ml PRN PRN IV IV PROTOCOL; Start 02/16/17 at 13:00 Carvedilol (Coreg) 3.125 mg BID PO Last administered on 02/23/17 08:21; Admin Dose 3.125 MG; Start 02/17/17 at 21:00 Cephalexin (Keflex) 500 mg BID PO Last administered on 02/20/17 21:19; Admin Dose 500 MG; Start 02/19/17 at 09:00; Status Future Hold Hydralazine HCl (Apresoline) 10 mg Q8 PO Last administered on 02/22/17 14:17 ; Admin Dose 10 MG; Start 02/20/17 at 22:00 Acetaminophen (Tylenol Tab) 650 mg Q4H PRN PO NON-CARDIAC PAIN LEVEL (1-3); Start 02/21/17 at 08:30 Morphine Sulfate (morphine) 2 mg Q2H PRN IV FOR NON CARDIAC PAIN (4-10); Start 02/21/17 at 08:30 Al Hydrox/Mg Hydrox/Simethicone (Mag-Al Plus) 30 ml Q4H PRN PO GASTROINTESTINAL UPSET; Start 02/21/17 at 08:30 Ondansetron HCl 4 mg 4 mg Q4H PRN IV NAUSEA AND/OR VOMITING; Start 02/21/17 at 08:30 Cefazolin Sodium (Ancef 1 Gm/50 ml (Pmx)) 50 ml @ 100 mls/hr Q8 IVPB Last administered on 02/23/17 14:28; Admin Dose 100 MLS/HR; Start 02/21/17 at 09: 00 Miscellaneous Information (* Miscellaneous Pharmacy Order) DC all Lovenox, Hepari... ONCE XX ; Start 02/21/17 at 08:30 Phenol (Cepastat Lozenge) 1 lozenge Q4 PRN MT sore throat Last administered on 02/23/17 11:21; Admin Dose 1 LOZENGE; Start 02/22/17 at 14:30 DIMA COVARRUBIAS Feb 23, 2017 16:08
--- NOTE | 2017-02-23 18:53 | CONS ---
Date/Time of Note Date/Time of Note DATE: 02/23/17 TIME: 18:48 Assessment/Plan Assessment/Plan Chief Complaint/Hosp Course IMP: 1.CHF-systolic acute on chronic 2. cardiomyopathy 3.ICD near EOL now POD#2 s/p generator change 4.Pleural effusion 5.Leukopenia 6.Met Breast CA 7. Hyponatremia-resolved 8. Renal failure 9. Hypotension-improved of pressors 10.R pleural effusion s/p PLeur-x catheter placement Recc: -Tele -Follow volume status closely and drain catheter as necessary -Continue coreg and will add low dose ACEI afterload reduction as tolerated -Continue statin/ASA -Continue abx prophylaxis Problems: Consultation Date/Type/Reason Admit Date/Time Feb 12, 2017 at 09:06 Initial Consult Date 02/12/2017 Type of Consultation: cardiology Reason for Consultation cardiomyopathy Referring Provider: GARY CROSS MD Exam/Review of Systems Vital Signs Vitals Vital Signs Date Time Temp Pulse Resp B/P Pulse Ox O2 Delivery O2 Flow Rate FiO2 02/23/17 16:39 2.0 28 02/23/17 16:20 95 02/23/17 15:30 97.8 18 122/58 95 02/23/17 13:06 Nasal Cannula Intake and Output 02/22/17 02/22/17 02/23/17 15:00 23:00 07:00 Intake Total 600 ml 450 ml Balance 600 ml 450 ml Exam Review of Systems: CONSTITUTIONAL: No fevers, chills. PULMONARY: No sob CARDIOVASCULAR: No chest pain/palpitations GASTROINTESTINAL: No nausea/vomiting. GENITOURINARY: No hematuria/dysuria. MUSCULOSKELETAL: No myagias/arthalgias. PSYCHIATRIC: The patient denies depression. NEUROLOGIC: No weakness Constitutional: alert Psych: no complaints Head: normocephalic ENMT: mucosa pink and moist Neck: jvd (9 cm water), supple Respiratory: diminished breath sounds Cardiovascular: other (L UQ pacer pocket with dried blood/no swelling), regular rate and rhythm Gastrointestinal: non-tender, soft Musculoskeletal: muscle tone (normal) Extremities: edema (none) Neurological: other (No focal deficits) Results Result Diagram: 02/22/17 1100 02/22/17 1100 Medications Medications Current Medications Ondansetron HCl (Zofran Inj) 4 mg Q6H PRN IV NAUSEA AND/OR VOMITING Last administered on 02/18/17 20:46; Admin Dose 4 MG; Start 02/12/17 at 14:00 Acetaminophen (Tylenol Tab) 650 mg Q6H PRN PO PAIN LEVEL 1-3 OR FEVER Last administered on 02/18/17 20:47; Admin Dose 650 MG; Start 02/12/17 at 14:00 Oxycodone/ Acetaminophen (Percocet (5/ 325)) 1 tab Q6H PRN PO SEVERE PAIN LEVEL 7-10 Last administered on 02/20/17 11:59; Admin Dose 1 TAB; Start 02/12 at 14:00 Bisacodyl (Dulcolax) 5 mg DAILY PRN PO CONSTIPATION; Start 02/12/17 at 14:00 Pantoprazole (Protonix Tab) 40 mg DAILY@06 PO Last administered on 02/23/17 06:47; Admin Dose 40 MG; Start 02/13/17 at 06:00 Aspirin (Halfprin) 81 mg DAILY PO Last administered on 02/23/17 08:21; Admin Dose 81 MG; Start 02/13/17 at 09:00 Atorvastatin Calcium (Lipitor) 20 mg HS PO Last administered on 02/22/17 20: 41; Admin Dose 20 MG; Start 02/12/17 at 21:00 Guaifenesin/ Dextromethorphan (Robitussin Dm Liquid Cup) 5 ml Q4H PRN PO cough Last administered on 02/22/17 14:41; Admin Dose 5 ML; Start 02/15/17 at 20:00 IV Flush (NS 10 ml) 10 ml PRN PRN IV IV PROTOCOL; Start 02/16/17 at 13:00 Carvedilol (Coreg) 3.125 mg BID PO Last administered on 02/23/17 08:21; Admin Dose 3.125 MG; Start 02/17/17 at 21:00 Cephalexin (Keflex) 500 mg BID PO Last administered on 02/20/17 21:19; Admin Dose 500 MG; Start 02/19/17 at 09:00; Status Future Hold Hydralazine HCl (Apresoline) 10 mg Q8 PO Last administered on 02/22/17 14:17 ; Admin Dose 10 MG; Start 02/20/17 at 22:00 Acetaminophen (Tylenol Tab) 650 mg Q4H PRN PO NON-CARDIAC PAIN LEVEL (1-3); Start 02/21/17 at 08:30 Morphine Sulfate (morphine) 2 mg Q2H PRN IV FOR NON CARDIAC PAIN (4-10); Start 02/21/17 at 08:30 Al Hydrox/Mg Hydrox/Simethicone (Mag-Al Plus) 30 ml Q4H PRN PO GASTROINTESTINAL UPSET; Start 02/21/17 at 08:30 Ondansetron HCl 4 mg 4 mg Q4H PRN IV NAUSEA AND/OR VOMITING; Start 02/21/17 at 08:30 Cefazolin Sodium (Ancef 1 Gm/50 ml (Pmx)) 50 ml @ 100 mls/hr Q8 IVPB Last administered on 02/23/17 14:28; Admin Dose 100 MLS/HR; Start 02/21/17 at 09: 00 Miscellaneous Information (* Miscellaneous Pharmacy Order) DC all Lovenox, Hepari... ONCE XX ; Start 02/21/17 at 08:30 Phenol (Cepastat Lozenge) 1 lozenge Q4 PRN MT sore throat Last administered on 02/23/17 11:21; Admin Dose 1 LOZENGE; Start 02/22/17 at 14:30 ROXIE VELARDE Feb 23, 2017 18:53
[2017-02-23] MEDS: ATORVASTATIN 20 MG TAB PO SCH (20:38)
[2017-02-24] VITALS (7 sets, daily range): BP systolic 101–133; BP diastolic 55–69; PULSE 102–111; RESP 17–20
[2017-02-24] MEDS: PANTOPRAZOLE (EC) 40 MG TAB PO SCH (06:25)
[2017-02-24] MEDS: CEFAZOLIN 1 GM/50 ML (PMX) 50 ML IVPB SCH ×3 (06:31→21:37)
[2017-02-24] MEDS: ALBUTEROL/IPRATROPIUM (NEB) 3 ML AMP HHN SCH ×3 (07:41→20:11)
[2017-02-24] MEDS: ASPIRIN (EC) 81 MG TAB PO SCH (09:42)
[2017-02-24] MEDS: LISINOPRIL 5 MG TAB PO SCH (09:43)
--- NOTE | 2017-02-24 09:55 | CONS ---
Date/Time of Note Date/Time of Note DATE: 02/24/17 TIME: 09:53 Assessment/Plan Assessment/Plan Additional Assessment/Plan Assessment recommendations; 1. Patient admitted with recurrent left pleural effusion due to extensive metastatic breast cancer. Status post multiple thoracentesis in the past now requiring Pleurx catheter placement with significant clinical improvement. 2. Acute renal insufficiency with normalization of renal function. Continue current treatment. Consider discharge. Consultation Date/Type/Reason Admit Date/Time Feb 12, 2017 at 09:06 Type of Consultation: Pulmonary Referring Provider: GARY CROSS MD 24 HR Interval Summary Free Text/Dictation Patient's condition is stable. Remains completely awake and alert. Denies any chest pain, shortness of breath, coughing or wheezing. Denies any hemoptysis. General exam; elderly woman, awake and alert. Currently in no distress. Exam/Review of Systems Vital Signs Vitals Vital Signs Date Time Temp Pulse Resp B/P Pulse Ox O2 Delivery O2 Flow Rate FiO2 02/24/17 07:41 3.0 28 02/24/17 07:41 94 18 Nasal Cannula 02/24/17 07:00 98.0 126/69 95 Intake and Output 02/23/17 02/23/17 02/24/17 15:00 23:00 07:00 Intake Total 850 ml 150 ml Output Total 400 ml 250 ml Balance 450 ml -100 ml Exam HEENT exam; supple neck, no JVD. No lymphadenopathy. Midline trachea. No thyromegaly. Pharynx is clear. Chest exam; minimally decreased breath sounds left lower lobe. Left Pleurx catheter in place. Right lung is clear to auscultation. S1-S2 audible, no murmurs. Abdomen exam; soft, nontender. No organomegaly. Bowel sounds audible. Extremity exam; no peripheral edema. [employer]ATION[employer]EC[employer]IVE exam; no focal deficit. Results Result Diagram: 02/22/17 1100 02/22/17 1100 Medications Medications Current Medications Acetaminophen (Tylenol Tab) 650 mg Q6H PRN PO PAIN LEVEL 1-3 OR FEVER Last administered on 02/18/17 20:47; Admin Dose 650 MG; Start 02/12/17 at 14:00 Oxycodone/ Acetaminophen (Percocet (5/ 325)) 1 tab Q6H PRN PO SEVERE PAIN LEVEL 7-10 Last administered on 02/20/17 11:59; Admin Dose 1 TAB; Start 02/12 at 14:00 Bisacodyl (Dulcolax) 5 mg DAILY PRN PO CONSTIPATION; Start 02/12/17 at 14:00 Pantoprazole (Protonix Tab) 40 mg DAILY@06 PO Last administered on 02/24/17 06:25; Admin Dose 40 MG; Start 02/13/17 at 06:00 Aspirin (Halfprin) 81 mg DAILY PO Last administered on 02/24/17 09:42; Admin Dose 81 MG; Start 02/13/17 at 09:00 Atorvastatin Calcium (Lipitor) 20 mg HS PO Last administered on 02/23/17 20: 38; Admin Dose 20 MG; Start 02/12/17 at 21:00 Guaifenesin/ Dextromethorphan (Robitussin Dm Liquid Cup) 5 ml Q4H PRN PO cough Last administered on 02/22/17 14:41; Admin Dose 5 ML; Start 02/15/17 at 20:00 IV Flush (NS 10 ml) 10 ml PRN PRN IV IV PROTOCOL; Start 02/16/17 at 13:00 Carvedilol (Coreg) 3.125 mg BID PO Last administered on 02/24/17 09:43; Admin Dose 3.125 MG; Start 02/17/17 at 21:00 Cephalexin (Keflex) 500 mg BID PO Last administered on 02/20/17 21:19; Admin Dose 500 MG; Start 02/19/17 at 09:00; Status Future Hold Acetaminophen (Tylenol Tab) 650 mg Q4H PRN PO NON-CARDIAC PAIN LEVEL (1-3); Start 02/21/17 at 08:30 Morphine Sulfate (morphine) 2 mg Q2H PRN IV FOR NON CARDIAC PAIN (4-10); Start 02/21/17 at 08:30 Al Hydrox/Mg Hydrox/Simethicone (Mag-Al Plus) 30 ml Q4H PRN PO GASTROINTESTINAL UPSET; Start 02/21/17 at 08:30 Ondansetron HCl 4 mg 4 mg Q4H PRN IV NAUSEA AND/OR VOMITING; Start 02/21/17 at 08:30 Cefazolin Sodium (Ancef 1 Gm/50 ml (Pmx)) 50 ml @ 100 mls/hr Q8 IVPB Last administered on 02/24/17 06:31; Admin Dose 100 MLS/HR; Start 02/21/17 at 09: 00 Miscellaneous Information (* Miscellaneous Pharmacy Order) DC all Lovenox, Hepari... ONCE XX ; Start 02/21/17 at 08:30 Phenol (Cepastat Lozenge) 1 lozenge Q4 PRN MT sore throat Last administered on 02/23/17 11:21; Admin Dose 1 LOZENGE; Start 02/22/17 at 14:30 Lisinopril (Zestril) 2.5 mg DAILY PO Last administered on 02/24/17 09:43; Admin Dose 2.5 MG; Start 02/24/17 at 09:00 DAGOBERTO CAO Feb 24, 2017 09:55
--- NOTE | 2017-02-24 12:20 | PN ---
Date/Time of Note Date/Time of Note DATE: 02/24/17 TIME: 12:18 Assessment/Plan VTE Prophylaxis VTE Prophylaxis Intervention: SCD's Lines/Catheters IV Catheter Type (from Nrs): Mid Line Urinary Cath still in place: Yes Reason Cath still needed: terminal illness/intractable pain Assessment/Plan Chief Complaint/Hosp Course Patient is a 81-year-old female with past medical history of metastatic breast cancer who presents for worsening malignant pleural effusions. Recently discharged #. Bilateral pleural effusions, likely malignant - Pulmonology on board. pleurx cath drain Q3days, 500cc each side, 1000cc max when drained - Continue on NC and wean as tolerating to keep saturations >90% #dysphasia -swallow study noted, no significant issues -barium swallow still ordered, will do sat as tech is not available until sat -GI consulted #. Hypotension- resolved - add medication as tolerating - will continue to monitor #. Leukopenia-stable #. Cardiomyopathy, congestive heart failure, acute on chronic ejection fraction 45% - Cardiology on board and recommendations appreciated. - Continue statin and aspirin. coreg restarted. titrate up as able. - ICD battery change done #. 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 Tay, oncology, outpatient. - Palliative on board and appreciated consultation. Son requesting that Dr. Anderson not seek out family. They will ask for his assistance as needed. Dr. Anderson made aware #. Anemia of chronic disease - currently stable - will continue monitoring #. Acute kidney injury, resolved - Nephrology consultation appreciated. improvement in renal function and signed off case. Will reconsult if any issues #. Disposition - downgraded to med/surg - f/u with GI recs, eval swallowing Problems: Subjective 24 Hr Interval Summary Free Text/Dictation no acute issues Exam/Review of Systems Vital Signs Vitals Vital Signs Date Time Temp Pulse Resp B/P Pulse Ox O2 Delivery O2 Flow Rate FiO2 02/24/17 07:41 3.0 28 02/24/17 07:41 94 18 Nasal Cannula 02/24/17 07:00 98.0 126/69 95 Intake and Output 02/23/17 02/23/17 02/24/17 14:59 22:59 06:59 Intake Total 850 ml 100 ml Output Total 400 ml 250 ml Balance 450 ml -150 ml Exam Physical exam General: Patient is laying in bed and answers questions appropriately Mentation: Patient is alert and oriented 4, Head: Normocephalic atraumatic Eyes: EOMI, pupils reactive to light Neck: Supple, nontender, midline Respiratory: Clear to auscultation bilaterally Cardiovascular: regular rate, no obvious murmurs Gastrointestinal: non-tender to palpation, bowel sounds heard. Neurological: Moves all extremities spontaneously Skin: procedure incision site CDI, pleurex cath sites CDI bilaterally Results Result Diagram: 02/22/17 1100 02/22/17 1100 Medications Medications Current Medications Acetaminophen (Tylenol Tab) 650 mg Q6H PRN PO PAIN LEVEL 1-3 OR FEVER Last administered on 02/18/17 20:47; Admin Dose 650 MG; Start 02/12/17 at 14:00 Oxycodone/ Acetaminophen (Percocet (5/ 325)) 1 tab Q6H PRN PO SEVERE PAIN LEVEL 7-10 Last administered on 02/20/17 11:59; Admin Dose 1 TAB; Start 02/12 at 14:00 Bisacodyl (Dulcolax) 5 mg DAILY PRN PO CONSTIPATION; Start 02/12/17 at 14:00 Pantoprazole (Protonix Tab) 40 mg DAILY@06 PO Last administered on 02/24/17 06:25; Admin Dose 40 MG; Start 02/13/17 at 06:00 Aspirin (Halfprin) 81 mg DAILY PO Last administered on 02/24/17 09:42; Admin Dose 81 MG; Start 02/13/17 at 09:00 Atorvastatin Calcium (Lipitor) 20 mg HS PO Last administered on 02/23/17 20: 38; Admin Dose 20 MG; Start 02/12/17 at 21:00 Guaifenesin/ Dextromethorphan (Robitussin Dm Liquid Cup) 5 ml Q4H PRN PO cough Last administered on 02/22/17 14:41; Admin Dose 5 ML; Start 02/15/17 at 20:00 IV Flush (NS 10 ml) 10 ml PRN PRN IV IV PROTOCOL; Start 02/16/17 at 13:00 Carvedilol (Coreg) 3.125 mg BID PO Last administered on 02/24/17 09:43; Admin Dose 3.125 MG; Start 02/17/17 at 21:00 Cephalexin (Keflex) 500 mg BID PO Last administered on 02/20/17 21:19; Admin Dose 500 MG; Start 02/19/17 at 09:00; Status Future Hold Acetaminophen (Tylenol Tab) 650 mg Q4H PRN PO NON-CARDIAC PAIN LEVEL (1-3); Start 02/21/17 at 08:30 Morphine Sulfate (morphine) 2 mg Q2H PRN IV FOR NON CARDIAC PAIN (4-10); Start 02/21/17 at 08:30 Al Hydrox/Mg Hydrox/Simethicone (Mag-Al Plus) 30 ml Q4H PRN PO GASTROINTESTINAL UPSET; Start 02/21/17 at 08:30 Ondansetron HCl 4 mg 4 mg Q4H PRN IV NAUSEA AND/OR VOMITING; Start 02/21/17 at 08:30 Cefazolin Sodium (Ancef 1 Gm/50 ml (Pmx)) 50 ml @ 100 mls/hr Q8 IVPB Last administered on 02/24/17 06:31; Admin Dose 100 MLS/HR; Start 02/21/17 at 09: 00 Miscellaneous Information (* Miscellaneous Pharmacy Order) DC all Lovenox, Hepari... ONCE XX ; Start 02/21/17 at 08:30 Phenol (Cepastat Lozenge) 1 lozenge Q4 PRN MT sore throat Last administered on 02/23/17 11:21; Admin Dose 1 LOZENGE; Start 02/22/17 at 14:30 Lisinopril (Zestril) 2.5 mg DAILY PO Last administered on 02/24/17 09:43; Admin Dose 2.5 MG; Start 02/24/17 at 09:00 DIMA COVARRUBIAS Feb 24, 2017 12:20
--- NOTE | 2017-02-24 13:57 | CONS ---
Date/Time of Note Date/Time of Note DATE: 02/24/17 TIME: 13:49 Assessment/Plan Assessment/Plan Chief Complaint/Hosp Course IMP: 1.CHF-systolic acute on chronic 2. cardiomyopathy 3.ICD near EOL now POD#2 s/p generator change 4.Pleural effusion 5.Leukopenia 6.Met Breast CA 7. Hyponatremia-resolved 8. Renal failure 9. Hypotension-improved of pressors 10.R pleural effusion s/p PLeur-x catheter placement 11. Dysphagia Recc: -Tele -Follow volume status closely and drain catheter as necessary -Continue coreg /ACEI -Continue statin/ASA -Continue abx prophylaxis -Pnding swallow eval Problems: Consultation Date/Type/Reason Admit Date/Time Feb 12, 2017 at 09:06 Initial Consult Date 02/12/2017 Type of Consultation: cardiology Reason for Consultation cardiomyopathy Referring Provider: GARY CROSS MD Exam/Review of Systems Vital Signs Vitals Vital Signs Date Time Temp Pulse Resp B/P Pulse Ox O2 Delivery O2 Flow Rate FiO2 02/24/17 13:34 98.0 102 17 118/60 96 Nasal Cannula 02/24/17 07:41 3.0 28 Intake and Output 02/23/17 02/23/17 02/24/17 15:00 23:00 07:00 Intake Total 850 ml 150 ml Output Total 400 ml 250 ml Balance 450 ml -100 ml Exam Review of Systems: CONSTITUTIONAL: No fevers, chills. PULMONARY: No sob CARDIOVASCULAR: No chest pain/palpitations GASTROINTESTINAL: No nausea/vomiting. GENITOURINARY: No hematuria/dysuria. MUSCULOSKELETAL: No myagias/arthalgias. PSYCHIATRIC: The patient denies depression. NEUROLOGIC: No weakness Constitutional: alert, oriented Psych: no complaints Head: normocephalic ENMT: mucosa pink and moist Neck: supple Respiratory: diminished breath sounds, other Cardiovascular: regular rate and rhythm Gastrointestinal: non-tender, soft Musculoskeletal: muscle weakness Extremities: edema (none) Neurological: other (No focal deficits) Results Result Diagram: 02/22/17 1100 02/22/17 1100 Medications Medications Current Medications Acetaminophen (Tylenol Tab) 650 mg Q6H PRN PO PAIN LEVEL 1-3 OR FEVER Last administered on 02/18/17t 20:47; Admin Dose 650 MG; Start 02/12/17 at 14:00 Oxycodone/ Acetaminophen (Percocet (5/ 325)) 1 tab Q6H PRN PO SEVERE PAIN LEVEL 7-10 Last administered on 02/20/17 11:59; Admin Dose 1 TAB; Start 02/12 at 14:00 Bisacodyl (Dulcolax) 5 mg DAILY PRN PO CONSTIPATION; Start 02/12/17 at 14:00 Pantoprazole (Protonix Tab) 40 mg DAILY@06 PO Last administered on 02/24/17 06:25; Admin Dose 40 MG; Start 02/13/17 at 06:00 Aspirin (Halfprin) 81 mg DAILY PO Last administered on 02/24/17 09:42; Admin Dose 81 MG; Start 02/13/17 at 09:00 Atorvastatin Calcium (Lipitor) 20 mg HS PO Last administered on 02/23/17 20: 38; Admin Dose 20 MG; Start 02/12/17 at 21:00 Guaifenesin/ Dextromethorphan (Robitussin Dm Liquid Cup) 5 ml Q4H PRN PO cough Last administered on 02/22/17 14:41; Admin Dose 5 ML; Start 02/15/17 at 20:00 IV Flush (NS 10 ml) 10 ml PRN PRN IV IV PROTOCOL; Start 02/16/17 at 13:00 Carvedilol (Coreg) 3.125 mg BID PO Last administered on 02/24/17 09:43; Admin Dose 3.125 MG; Start 02/17/17 at 21:00 Cephalexin (Keflex) 500 mg BID PO Last administered on 02/20/17 21:19; Admin Dose 500 MG; Start 02/19/17 at 09:00; Status Future Hold Acetaminophen (Tylenol Tab) 650 mg Q4H PRN PO NON-CARDIAC PAIN LEVEL (1-3); Start 02/21/17 at 08:30 Morphine Sulfate (morphine) 2 mg Q2H PRN IV FOR NON CARDIAC PAIN (4-10); Start 02/21/17 at 08:30 Al Hydrox/Mg Hydrox/Simethicone (Mag-Al Plus) 30 ml Q4H PRN PO GASTROINTESTINAL UPSET; Start 02/21/17 at 08:30 Ondansetron HCl 4 mg 4 mg Q4H PRN IV NAUSEA AND/OR VOMITING; Start 02/21/17 at 08:30 Cefazolin Sodium (Ancef 1 Gm/50 ml (Pmx)) 50 ml @ 100 mls/hr Q8 IVPB Last administered on 02/24/17 06:31; Admin Dose 100 MLS/HR; Start 02/21/17 at 09: 00 Miscellaneous Information (* Miscellaneous Pharmacy Order) DC all Lovenox, Hepari... ONCE XX ; Start 02/21/17 at 08:30 Phenol (Cepastat Lozenge) 1 lozenge Q4 PRN MT sore throat Last administered on 02/23/17 11:21; Admin Dose 1 LOZENGE; Start 02/22/17 at 14:30 Lisinopril (Zestril) 2.5 mg DAILY PO Last administered on 02/24/17 09:43; Admin Dose 2.5 MG; Start 02/24/17 at 09:00 ROXIE VELARDE Feb 24, 2017 13:57
--- NOTE | 2017-02-24 14:04 | PN ---
Date/Time of Note Date/Time of Note DATE: 02/24/17 TIME: 14:02 Assessment/Plan VTE Prophylaxis VTE Prophylaxis Intervention: SCD's Lines/Catheters IV Catheter Type (from Nrs): Mid Line Urinary Cath still in place: Yes Reason Cath still needed: other (indicate) (Monitor output) Assessment/Plan Chief Complaint/Hosp Course Summary Assessment and Plan: Assessment: bilateral pleural effusions, likely malignant pulmonary edema Leukopenia Metastatic breast cancer to bone and pelvis Anemia of chronic disease Acute kidney injury Cardiomyopathy, congestive heart failure, acute on chronic ejection fraction 45% , Plan: No change in plan- awaiting barium swallow, which has been rescheduled to Monday Recommendations based on results of barium swallow If plan to move forward with PEG will need cardiac clearance prior to procedure Discussed plan with family who agrees Patient seen in collaboration with Subjective: Course reviewed with nursing staff Patient interviewed and examined All labs, imaging and other results reviewed The patient resting in bed, no complaints family at bedside PHYSICAL EXAMINATION: GENERAL: Frail, alert and oriented 3, no distress SKIN: No lesions, no stigmata chronic liver disease, no evidence of bleeding diathesis LYMPHATIC: No palpable lymphadenopathy. HEAD: Normocephalic, atraumatic, no tenderness. EYES: Pupils equal reactive to light and accommodation, full extraocular movements, sclera clear, non-icteric, no discharge. EARS/NOSE AND THROAT: Ears normal, nose normal, oropharynx normal NECK: Supple, no masses, thyroid normal, JVP within normal limits, carotids normal without bruits. CHEST: pleurx cath drain CARDIOVASCULAR: Heart: Regular rate and rhythm, no murmurs, gallops or rubs. Peripheral pulses present within normal limits, no cyanosis, clubbing or edemas. No pulsatile abdominal mass RESPIRATORY: Diminished, GASTROINTESTINAL AND LIVER: Abdomen: Soft, non tenderness, non-distended, no hernias, no masses, no organomegaly, no ascites, no guarding, no rebound tenderness, normoactive bowel sounds. Rectal: Deferred. GENITOURINARY:Female genitalia within normal limits. EXTREMITIES: No cyanosis, clubbing or edema. Problems: Exam/Review of Systems Vital Signs Vitals Vital Signs Date Time Temp Pulse Resp B/P Pulse Ox O2 Delivery O2 Flow Rate FiO2 02/24/17 13:46 95 18 3.0 02/24/17 13:34 98.0 118/60 96 Nasal Cannula 02/24/17 07:41 28 Intake and Output 02/23/17 02/23/17 02/24/17 15:00 23:00 07:00 Intake Total 850 ml 150 ml Output Total 400 ml 250 ml Balance 450 ml -100 ml Results Result Diagram: 02/22/17 1100 02/22/17 1100 Medications Medications Current Medications Acetaminophen (Tylenol Tab) 650 mg Q6H PRN PO PAIN LEVEL 1-3 OR FEVER Last administered on 02/18/17 20:47; Admin Dose 650 MG; Start 02/12/17 at 14:00 Oxycodone/ Acetaminophen (Percocet (5/ 325)) 1 tab Q6H PRN PO SEVERE PAIN LEVEL 7-10 Last administered on 02/20/17 11:59; Admin Dose 1 TAB; Start 02/12 at 14:00 Bisacodyl (Dulcolax) 5 mg DAILY PRN PO CONSTIPATION; Start 02/12/17 at 14:00 Pantoprazole (Protonix Tab) 40 mg DAILY@06 PO Last administered on 02/24/17 06:25; Admin Dose 40 MG; Start 02/13/17 at 06:00 Aspirin (Halfprin) 81 mg DAILY PO Last administered on 02/24/17 09:42; Admin Dose 81 MG; Start 02/13/17 at 09:00 Atorvastatin Calcium (Lipitor) 20 mg HS PO Last administered on 02/23/17 20: 38; Admin Dose 20 MG; Start 02/12/17 at 21:00 Guaifenesin/ Dextromethorphan (Robitussin Dm Liquid Cup) 5 ml Q4H PRN PO cough Last administered on 02/22/17 14:41; Admin Dose 5 ML; Start 02/15/17 at 20:00 IV Flush (NS 10 ml) 10 ml PRN PRN IV IV PROTOCOL; Start 02/16/17 at 13:00 Carvedilol (Coreg) 3.125 mg BID PO Last administered on 02/24/17 09:43; Admin Dose 3.125 MG; Start 02/17/17 at 21:00 Cephalexin (Keflex) 500 mg BID PO Last administered on 02/20/17 21:19; Admin Dose 500 MG; Start 02/19/17 at 09:00; Status Future Hold Acetaminophen (Tylenol Tab) 650 mg Q4H PRN PO NON-CARDIAC PAIN LEVEL (1-3); Start 02/21/17 at 08:30 Morphine Sulfate (morphine) 2 mg Q2H PRN IV FOR NON CARDIAC PAIN (4-10); Start 02/21/17 at 08:30 Al Hydrox/Mg Hydrox/Simethicone (Mag-Al Plus) 30 ml Q4H PRN PO GASTROINTESTINAL UPSET; Start 02/21/17 at 08:30 Ondansetron HCl 4 mg 4 mg Q4H PRN IV NAUSEA AND/OR VOMITING; Start 02/21/17 at 08:30 Cefazolin Sodium (Ancef 1 Gm/50 ml (Pmx)) 50 ml @ 100 mls/hr Q8 IVPB Last administered on 02/24/17 13:59; Admin Dose 100 MLS/HR; Start 02/21/17 at 09: 00 Miscellaneous Information (* Miscellaneous Pharmacy Order) DC all Lovenox, Hepari... ONCE XX ; Start 02/21/17 at 08:30 Phenol (Cepastat Lozenge) 1 lozenge Q4 PRN MT sore throat Last administered on 02/23/17 11:21; Admin Dose 1 LOZENGE; Start 02/22/17 at 14:30 Lisinopril (Zestril) 2.5 mg DAILY PO Last administered on 02/24/17 09:43; Admin Dose 2.5 MG; Start 02/24/17 at 09:00 DINA SORIANO Feb 24, 2017 14:04
[2017-02-24] MEDS: ATORVASTATIN 20 MG TAB PO SCH (21:37)
[2017-02-25 01:51] VITALS: BP 115/56; RESP 18
[2017-02-25] MEDS: CEFAZOLIN 1 GM/50 ML (PMX) 50 ML IVPB SCH ×3 (05:39→22:31)
[2017-02-25] MEDS: PANTOPRAZOLE (EC) 40 MG TAB PO SCH (05:39)
[2017-02-25 07:48] VITALS: BP 117/56; RESP 22
[2017-02-25] MEDS: ALBUTEROL/IPRATROPIUM (NEB) 3 ML AMP HHN SCH ×3 (08:08→21:38)
[2017-02-25] MEDS: ASPIRIN (EC) 81 MG TAB PO SCH (08:56)
[2017-02-25] MEDS: LISINOPRIL 5 MG TAB PO SCH (09:00)
--- NOTE | 2017-02-25 11:23 | CONS ---
Date/Time of Note Date/Time of Note DATE: 02/25/17 TIME: 11:19 Consult Date/Type/Reason Admit Date/Time Feb 12, 2017 at 09:06 Type of Consultation: Pulmonary Ordering Provider: GARY CROSS MD Subjective Patient comfortable at rest no acute distress. Objective Vital Signs Date Time Temp Pulse Resp B/P Pulse Ox O2 Delivery O2 Flow Rate FiO2 02/25/17 08:10 3.0 02/25/17 08:09 96 20 98 Nasal Cannula 02/25/17 07:48 97.4 117/56 02/24/17 07:41 28 Intake and Output 02/24/17 02/24/17 02/25/17 15:00 23:00 07:00 Intake Total 50 ml 350 ml 530 ml Output Total 400 ml 900 ml Balance -350 ml -550 ml 530 ml Exam GENERAL: Elderly appearing lady comfortable at rest VITAL SIGNS: per chart NECK: Supple. No JVD or lymphadenopathy. CARDIAC EXAM: S1, S2. No added sounds or murmurs. CHEST: clear bilaterally, No added sounds, rales or wheezes ABDOMEN: Soft, nontender. No guarding or rebound. EXTREMITIES: No cyanosis, clubbing or edema. NEUROLOGIC: Generalized weakness. No focal deficits. Results/Medications Result Diagram: 02/25/17 1037 02/22/17 1100 Results 24 hrs Laboratory Tests Test 02/25/17 10:37 White Blood Count 6.1 # Red Blood Count 2.98 L Hemoglobin 9.3 L Hematocrit 28.6 L Mean Corpuscular Volume 96.0 Mean Corpuscular Hemoglobin 31.2 Mean Corpuscular Hemoglobin Concent 32.5 Red Cell Distribution Width 14.2 Platelet Count 337 Mean Platelet Volume 10.8 H Neutrophils % 73.9 Lymphocytes % 5.3 L Monocytes % 13.5 H Eosinophils % 3.8 Basophils % 1.0 Nucleated Red Blood Cells % 0.0 Neutrophils # 4.5 Lymphocytes # 0.3 L Monocytes # 0.8 Eosinophils # 0.2 Basophils # 0.1 Nucleated Red Blood Cells # 0.0 Medications Current Medications Acetaminophen (Tylenol Tab) 650 mg Q6H PRN PO PAIN LEVEL 1-3 OR FEVER Last administered on 02/18/17t 20:47; Admin Dose 650 MG; Start 02/12/17 at 14:00 Oxycodone/ Acetaminophen (Percocet (5/ 325)) 1 tab Q6H PRN PO SEVERE PAIN LEVEL 7-10 Last administered on 02/20/17 11:59; Admin Dose 1 TAB; Start 02/12 at 14:00 Bisacodyl (Dulcolax) 5 mg DAILY PRN PO CONSTIPATION; Start 02/12/17 at 14:00 Pantoprazole (Protonix Tab) 40 mg DAILY@06 PO Last administered on 02/25/17 05:39; Admin Dose 40 MG; Start 02/13/17 at 06:00 Aspirin (Halfprin) 81 mg DAILY PO Last administered on 02/25/17 08:56; Admin Dose 81 MG; Start 02/13/17 at 09:00 Atorvastatin Calcium (Lipitor) 20 mg HS PO Last administered on 02/24/17 21: 37; Admin Dose 20 MG; Start 02/12/17 at 21:00 Guaifenesin/ Dextromethorphan (Robitussin Dm Liquid Cup) 5 ml Q4H PRN PO cough Last administered on 02/22/17 14:41; Admin Dose 5 ML; Start 02/15/17 at 20:00 IV Flush (NS 10 ml) 10 ml PRN PRN IV IV PROTOCOL; Start 02/16/17 at 13:00 Carvedilol (Coreg) 3.125 mg BID PO Last administered on 02/24/17 09:43; Admin Dose 3.125 MG; Start 02/17/17 at 21:00 Cephalexin (Keflex) 500 mg BID PO Last administered on 02/20/17 21:19; Admin Dose 500 MG; Start 02/19/17 at 09:00; Status Future Hold Acetaminophen (Tylenol Tab) 650 mg Q4H PRN PO NON-CARDIAC PAIN LEVEL (1-3); Start 02/21/17 at 08:30 Morphine Sulfate (morphine) 2 mg Q2H PRN IV FOR NON CARDIAC PAIN (4-10); Start 02/21/17 at 08:30 Al Hydrox/Mg Hydrox/Simethicone (Mag-Al Plus) 30 ml Q4H PRN PO GASTROINTESTINAL UPSET; Start 02/21/17 at 08:30 Ondansetron HCl 4 mg 4 mg Q4H PRN IV NAUSEA AND/OR VOMITING; Start 02/21/17 at 08:30 Cefazolin Sodium (Ancef 1 Gm/50 ml (Pmx)) 50 ml @ 100 mls/hr Q8 IVPB Last administered on 02/25/17 05:39; Admin Dose 100 MLS/HR; Start 02/21/17 at 09: 00 Miscellaneous Information (* Miscellaneous Pharmacy Order) DC all Lovenox, Hepari... ONCE XX ; Start 02/21/17 at 08:30 Phenol (Cepastat Lozenge) 1 lozenge Q4 PRN MT sore throat Last administered on 02/23/17 11:21; Admin Dose 1 LOZENGE; Start 02/22/17 at 14:30 Lisinopril (Zestril) 2.5 mg DAILY PO Last administered on 02/24/17 09:43; Admin Dose 2.5 MG; Start 02/24/17 at 09:00 Assessment/Plan Chief Complaint/Hosp Course IMP: 1. Recurrent large pleural effusion status post Pleurx catheter placement, radiographic improvement following drainage. 2. Metastatic breast cancer 3. Hypoxemic respiratory insufficiency 4. Renal insufficiency RECS: 1. Drain Pleurx catheter every third day Chest x-ray shows minimal pleural effusions DC planning okay from primary standpoint Problems: STAN MAC MD, [facility] Feb 25, 2017 11:23
--- NOTE | 2017-02-25 12:03 | PN ---
Date/Time of Note Date/Time of Note DATE: 02/25/17 TIME: 12:02 Assessment/Plan VTE Prophylaxis VTE Prophylaxis Intervention: SCD's Lines/Catheters IV Catheter Type (from Nrs): Mid Line Urinary Cath still in place: Yes Reason Cath still needed: terminal illness/intractable pain Assessment/Plan Chief Complaint/Hosp Course Patient is a 81-year-old female with past medical history of metastatic breast cancer who presents for worsening malignant pleural effusions. Recently discharged #. Bilateral pleural effusions, likely malignant - Pulmonology on board. pleurx cath drain Q3days, 500cc each side, 1000cc max when drained - Continue on NC and wean as tolerating to keep saturations >90% #dysphasia -swallow study noted, no significant issues -barium swallow still ordered, will perform today -GI consulted #. Hypotension- resolved - add medication as tolerating - will continue to monitor #. Leukopenia-stable #. Cardiomyopathy, congestive heart failure, acute on chronic ejection fraction 45% - Cardiology on board and recommendations appreciated. - Continue statin and aspirin. coreg restarted. titrate up as able. - ICD battery change done #. 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 Tay, oncology, outpatient. - Palliative on board and appreciated consultation. Son requesting that Dr. Anderson not seek out family. They will ask for his assistance as needed. Dr. Anderson made aware #. Anemia of chronic disease - currently stable - will continue monitoring #. Acute kidney injury, resolved - Nephrology consultation appreciated. improvement in renal function and signed off case. Will reconsult if any issues #. Disposition - downgraded to med/surg - f/u with GI recs, eval swallowing today with barium swallow Problems: Subjective 24 Hr Interval Summary Free Text/Dictation still has difficulty swallowing food Exam/Review of Systems Vital Signs Vitals Vital Signs Date Time Temp Pulse Resp B/P Pulse Ox O2 Delivery O2 Flow Rate FiO2 02/25/17 08:10 3.0 02/25/17 08:09 96 20 98 Nasal Cannula 02/25/17 07:48 97.4 117/56 02/24/17 07:41 28 Intake and Output 02/24/17 02/24/17 02/25/17 15:00 23:00 07:00 Intake Total 50 ml 350 ml 530 ml Output Total 400 ml 900 ml Balance -350 ml -550 ml 530 ml Exam Physical exam General: Patient is laying in bed and answers questions appropriately Mentation: Patient is alert and oriented 4, Head: Normocephalic atraumatic Eyes: EOMI, pupils reactive to light Neck: Supple, nontender, midline Respiratory: Clear to auscultation bilaterally Cardiovascular: regular rate, no obvious murmurs Gastrointestinal: non-tender to palpation, bowel sounds heard. Neurological: Moves all extremities spontaneously Skin: procedure incision site CDI, pleurex cath sites CDI bilaterally Results Result Diagram: 02/25/17 1037 02/25/17 1037 Results 24 hrs Laboratory Tests Test 02/25/17 10:37 White Blood Count 6.1 # Red Blood Count 2.98 L Hemoglobin 9.3 L Hematocrit 28.6 L Mean Corpuscular Volume 96.0 Mean Corpuscular Hemoglobin 31.2 Mean Corpuscular Hemoglobin Concent 32.5 Red Cell Distribution Width 14.2 Platelet Count 337 Mean Platelet Volume 10.8 H Neutrophils % 73.9 Lymphocytes % 5.3 L Monocytes % 13.5 H Eosinophils % 3.8 Basophils % 1.0 Nucleated Red Blood Cells % 0.0 Neutrophils # 4.5 Lymphocytes # 0.3 L Monocytes # 0.8 Eosinophils # 0.2 Basophils # 0.1 Nucleated Red Blood Cells # 0.0 Sodium Level 137 Potassium Level 3.5 Chloride Level 102 Carbon Dioxide Level 26 Anion Gap 13 Blood Urea Nitrogen 7 Creatinine 0.85 Glucose Level 113 Calcium Level 8.1 L Phosphorus Level 2.9 Magnesium Level 1.6 L Medications Medications Current Medications Acetaminophen (Tylenol Tab) 650 mg Q6H PRN PO PAIN LEVEL 1-3 OR FEVER Last administered on 02/18/17 20:47; Admin Dose 650 MG; Start 02/12/17 at 14:00 Oxycodone/ Acetaminophen (Percocet (5/ 325)) 1 tab Q6H PRN PO SEVERE PAIN LEVEL 7-10 Last administered on 02/20/17 11:59; Admin Dose 1 TAB; Start 02/12 at 14:00 Bisacodyl (Dulcolax) 5 mg DAILY PRN PO CONSTIPATION; Start 02/12/17 at 14:00 Pantoprazole (Protonix Tab) 40 mg DAILY@06 PO Last administered on 02/25/17 05:39; Admin Dose 40 MG; Start 02/13/17 at 06:00 Aspirin (Halfprin) 81 mg DAILY PO Last administered on 02/25/17 08:56; Admin Dose 81 MG; Start 02/13/17 at 09:00 Atorvastatin Calcium (Lipitor) 20 mg HS PO Last administered on 02/24/17 21: 37; Admin Dose 20 MG; Start 02/12/17 at 21:00 Guaifenesin/ Dextromethorphan (Robitussin Dm Liquid Cup) 5 ml Q4H PRN PO cough Last administered on 02/22/17 14:41; Admin Dose 5 ML; Start 02/15/17 at 20:00 IV Flush (NS 10 ml) 10 ml PRN PRN IV IV PROTOCOL; Start 02/16/17 at 13:00 Carvedilol (Coreg) 3.125 mg BID PO Last administered on 02/24/17 09:43; Admin Dose 3.125 MG; Start 02/17/17 at 21:00 Cephalexin (Keflex) 500 mg BID PO Last administered on 02/20/17 21:19; Admin Dose 500 MG; Start 02/19/17 at 09:00; Status Future Hold Acetaminophen (Tylenol Tab) 650 mg Q4H PRN PO NON-CARDIAC PAIN LEVEL (1-3); Start 02/21/17 at 08:30 Morphine Sulfate (morphine) 2 mg Q2H PRN IV FOR NON CARDIAC PAIN (4-10); Start 02/21/17 at 08:30 Al Hydrox/Mg Hydrox/Simethicone (Mag-Al Plus) 30 ml Q4H PRN PO GASTROINTESTINAL UPSET; Start 02/21/17 at 08:30 Ondansetron HCl 4 mg 4 mg Q4H PRN IV NAUSEA AND/OR VOMITING; Start 02/21/17 at 08:30 Cefazolin Sodium (Ancef 1 Gm/50 ml (Pmx)) 50 ml @ 100 mls/hr Q8 IVPB Last administered on 02/25/17 05:39; Admin Dose 100 MLS/HR; Start 02/21/17 at 09: 00 Miscellaneous Information (* Miscellaneous Pharmacy Order) DC all Lovenox, Hepari... ONCE XX ; Start 02/21/17 at 08:30 Phenol (Cepastat Lozenge) 1 lozenge Q4 PRN MT sore throat Last administered on 02/23/17 11:21; Admin Dose 1 LOZENGE; Start 02/22/17 at 14:30 Lisinopril (Zestril) 2.5 mg DAILY PO Last administered on 02/24/17 09:43; Admin Dose 2.5 MG; Start 02/24/17 at 09:00 DIMA COVARRUBIAS Feb 25, 2017 12:03
[2017-02-25 13:24] VITALS: BP 98/63; PULSE 119
[2017-02-25] MEDS ORDERED: BARIUM SULFATE 135 ML (E-Z HD) PO ONE ×2 (14:00→14:53)
--- NOTE | 2017-02-25 14:04 | CONS ---
Date/Time of Note Date/Time of Note DATE: 02/25/17 TIME: 14:00 Assessment/Plan Assessment/Plan Additional Assessment/Plan CHF-systolic acute on chronic Cardiomyopathy s/p ICD , s/p generator change Met Breast CA Renal failure R pleural effusion s/p Pleur-x catheter placement Continue Coreg Continue Lisinopril Continue Lipitor Continue Antibiotics Consultation Date/Type/Reason Admit Date/Time Feb 12, 2017 at 09:06 Constitutional: no complaints, poor po Eyes: no complaints Respiratory: cough Gastrointestinal: constipation, decreased appetite, flatus, nausea, No diarrhea, No vomiting Psychological: no complaints Past Surgical History Past Surgical Hx: endoscopy (Colonoscopy about 1 year ago, colonoscopy more than 5 years ago), other Social History Alcohol Use: none Smoking Status: Current some day smoker Drug Use: none Exam/Review of Systems Vital Signs Vitals Vital Signs Date Time Temp Pulse Resp B/P Pulse Ox O2 Delivery O2 Flow Rate FiO2 02/25/17 13:24 119 98/63 02/25/17 08:10 3.0 02/25/17 08:09 20 98 Nasal Cannula 02/25/17 07:48 97.4 02/24/17 07:41 28 Intake and Output 02/24/17 02/24/17 02/25/17 15:00 23:00 07:00 Intake Total 50 ml 350 ml 530 ml Output Total 400 ml 900 ml Balance -350 ml -550 ml 530 ml Exam Constitutional: alert Head: atraumatic, normocephalic Respiratory: clear to auscultation Cardiovascular: regular rate and rhythm Gastrointestinal: nl liver, spleen, non-tender, soft Results Result Diagram: 02/25/17 1037 02/25/17 1037 Results 24 hrs Laboratory Tests Test 02/25/17 10:37 White Blood Count 6.1 # Red Blood Count 2.98 L Hemoglobin 9.3 L Hematocrit 28.6 L Mean Corpuscular Volume 96.0 Mean Corpuscular Hemoglobin 31.2 Mean Corpuscular Hemoglobin Concent 32.5 Red Cell Distribution Width 14.2 Platelet Count 337 Mean Platelet Volume 10.8 H Neutrophils % 73.9 Lymphocytes % 5.3 L Monocytes % 13.5 H Eosinophils % 3.8 Basophils % 1.0 Nucleated Red Blood Cells % 0.0 Neutrophils # 4.5 Lymphocytes # 0.3 L Monocytes # 0.8 Eosinophils # 0.2 Basophils # 0.1 Nucleated Red Blood Cells # 0.0 Sodium Level 137 Potassium Level 3.5 Chloride Level 102 Carbon Dioxide Level 26 Anion Gap 13 Blood Urea Nitrogen 7 Creatinine 0.85 Glucose Level 113 Calcium Level 8.1 L Phosphorus Level 2.9 Magnesium Level 1.6 L Medications Medications Current Medications Acetaminophen (Tylenol Tab) 650 mg Q6H PRN PO PAIN LEVEL 1-3 OR FEVER Last administered on 02/18/17 20:47; Admin Dose 650 MG; Start 02/12/17 at 14:00 Oxycodone/ Acetaminophen (Percocet (5/ 325)) 1 tab Q6H PRN PO SEVERE PAIN LEVEL 7-10 Last administered on 02/20/17 11:59; Admin Dose 1 TAB; Start 02/12 at 14:00 Bisacodyl (Dulcolax) 5 mg DAILY PRN PO CONSTIPATION; Start 02/12/17 at 14:00 Pantoprazole (Protonix Tab) 40 mg DAILY@06 PO Last administered on 02/25/17 05:39; Admin Dose 40 MG; Start 02/13/17 at 06:00 Aspirin (Halfprin) 81 mg DAILY PO Last administered on 02/25/17 08:56; Admin Dose 81 MG; Start 02/13/17 at 09:00 Atorvastatin Calcium (Lipitor) 20 mg HS PO Last administered on 02/24/17 21: 37; Admin Dose 20 MG; Start 02/12/17 at 21:00 Guaifenesin/ Dextromethorphan (Robitussin Dm Liquid Cup) 5 ml Q4H PRN PO cough Last administered on 02/22/17 14:41; Admin Dose 5 ML; Start 02/15/17 at 20:00 IV Flush (NS 10 ml) 10 ml PRN PRN IV IV PROTOCOL; Start 02/16/17 at 13:00 Carvedilol (Coreg) 3.125 mg BID PO Last administered on 02/24/17 09:43; Admin Dose 3.125 MG; Start 02/17/17 at 21:00 Cephalexin (Keflex) 500 mg BID PO Last administered on 02/20/17 21:19; Admin Dose 500 MG; Start 02/19/17 at 09:00; Status Future Hold Acetaminophen (Tylenol Tab) 650 mg Q4H PRN PO NON-CARDIAC PAIN LEVEL (1-3); Start 02/21/17 at 08:30 Morphine Sulfate (morphine) 2 mg Q2H PRN IV FOR NON CARDIAC PAIN (4-10); Start 02/21/17 at 08:30 Al Hydrox/Mg Hydrox/Simethicone (Mag-Al Plus) 30 ml Q4H PRN PO GASTROINTESTINAL UPSET; Start 02/21/17 at 08:30 Ondansetron HCl 4 mg 4 mg Q4H PRN IV NAUSEA AND/OR VOMITING; Start 02/21/17 at 08:30 Cefazolin Sodium (Ancef 1 Gm/50 ml (Pmx)) 50 ml @ 100 mls/hr Q8 IVPB Last administered on 02/25/17 13:23; Admin Dose 100 MLS/HR; Start 02/21/17 at 09: 00 Miscellaneous Information (* Miscellaneous Pharmacy Order) DC all Lovenox, Hepari... ONCE XX ; Start 02/21/17 at 08:30 Phenol (Cepastat Lozenge) 1 lozenge Q4 PRN MT sore throat Last administered on 02/23/17 11:21; Admin Dose 1 LOZENGE; Start 02/22/17 at 14:30 Lisinopril (Zestril) 2.5 mg DAILY PO Last administered on 02/24/17 09:43; Admin Dose 2.5 MG; Start 02/24/17 at 09:00 STEVEN HERNANDEZ M.D. Feb 25, 2017 14:04
--- NOTE | 2017-02-25 15:09 | RADRPT ---
PROCEDURE: Esophagram CLINICAL INDICATION: Dysphagia TECHNIQUE: The patient was NPO. The patient was given thick barium orally via a straw. Subsequentl y videofluoroscopy was performed was performed. Routine esophageal images were obtained. Fluoroscopy time: 0.2 min Fluoroscopy sequences: 13 COMPARISON: No comparison study available. FINDINGS: A left-sided pacemaker / AICD is noted on the information technology advisor image. There is aneurysmal dilatation of the aor tic arch with prominent contour deformity of the right side of the upper to mid esophagus noted at t he level of the aortic arch. Liquid contrast is noted to squeeze past this area of narrowing althoug h some contrast is noted to stay above the arch/level of narrowing. Prominent reflux of contrast is noted from the stomach back into the distal esophagus. The stomach and proximal duodenum are otherwise unremarkable. IMPRESSION: Aneurysmal dilatation of the aortic arch with prominent extrinsic compression of the upper to mid es ophagus. Contrast is noted to stay above this level after peristalsis. Prominent gastroesophageal reflux. RPTAT: EE Physician Mauricio Date Time Electronically viewed and signed by Physician Mauricio on 02/25/2017 15:09 /
--- NOTE | 2017-02-25 15:09 | RADRPT ---
PROCEDURE: Esophagram CLINICAL INDICATION: Dysphagia TECHNIQUE: The patient was NPO. The patient was given thick barium orally via a straw. Subsequentl y videofluoroscopy was performed was performed. Routine esophageal images were obtained. Fluoroscopy time: 0.2 min Fluoroscopy sequences: 13 COMPARISON: No comparison study available. FINDINGS: A left-sided pacemaker / AICD is noted on the toll line mechanic image. There is aneurysmal dilatation of the aor tic arch with prominent contour deformity of the right side of the upper to mid esophagus noted at t he level of the aortic arch. Liquid contrast is noted to squeeze past this area of narrowing althoug h some contrast is noted to stay above the arch/level of narrowing. Prominent reflux of contrast is noted from the stomach back into the distal esophagus. The stomach and proximal duodenum are otherwise unremarkable. IMPRESSION: Aneurysmal dilatation of the aortic arch with prominent extrinsic compression of the upper to mid es ophagus. Contrast is noted to stay above this level after peristalsis. Prominent gastroesophageal reflux. RPTAT: EE Physician Mauricio Date Time Electronically viewed and signed by Physician Mauricio on 02/25/2017 15:09 /
--- NOTE | 2017-02-25 15:54 | PN ---
Date/Time of Note Date/Time of Note DATE: 02/25/17 TIME: 15:52 Assessment/Plan VTE Prophylaxis VTE Prophylaxis Intervention: SCD's Lines/Catheters IV Catheter Type (from Nrs): Mid Line Urinary Cath still in place: Yes Reason Cath still needed: other (indicate) (monitor output) Assessment/Plan Chief Complaint/Hosp Course Summary Assessment and Plan: Assessment: bilateral pleural effusions, likely malignant pulmonary edema Leukopenia Metastatic breast cancer to bone and pelvis Anemia of chronic disease Acute kidney injury Cardiomyopathy, congestive heart failure, acute on chronic ejection fraction 45% , Plan: S/p barium swallow with possible narrowing Pt states has had EGD with dilation about 1 1/2 ago- venecia well Will possible need EGD with dilation vs PEG - Monday Patient seen in collaboration with Subjective: Course reviewed with nursing staff Patient interviewed and examined All labs, imaging and other results reviewed Son at bedside, discussed results of test and possible plan of care both verbalized understanding PHYSICAL EXAMINATION: GENERAL: Frail, alert and oriented 3, no distress SKIN: No lesions, no stigmata chronic liver disease, no evidence of bleeding diathesis LYMPHATIC: No palpable lymphadenopathy. HEAD: Normocephalic, atraumatic, no tenderness. EYES: Pupils equal reactive to light and accommodation, full extraocular movements, sclera clear, non-icteric, no discharge. EARS/NOSE AND THROAT: Ears normal, nose normal, oropharynx normal NECK: Supple, no masses, thyroid normal, JVP within normal limits, carotids normal without bruits. CHEST: pleurx cath drain CARDIOVASCULAR: Heart: Regular rate and rhythm, no murmurs, gallops or rubs. Peripheral pulses present within normal limits, no cyanosis, clubbing or edemas. No pulsatile abdominal mass RESPIRATORY: Diminished, GASTROINTESTINAL AND LIVER: Abdomen: Soft, non tenderness, non-distended, no hernias, no masses, no organomegaly, no ascites, no guarding, no rebound tenderness, normoactive bowel sounds. Rectal: Deferred. GENITOURINARY:Female genitalia within normal limits. EXTREMITIES: No cyanosis, clubbing or edema. Problems: Exam/Review of Systems Vital Signs Vitals Vital Signs Date Time Temp Pulse Resp B/P Pulse Ox O2 Delivery O2 Flow Rate FiO2 02/25/17 15:18 107 20 96 Nasal Cannula 2.5 02/25/17 13:24 98/63 02/25/17 07:48 97.4 02/24/17 07:41 28 Intake and Output 02/24/17 02/24/17 02/25/17 15:00 23:00 07:00 Intake Total 50 ml 350 ml 530 ml Output Total 400 ml 900 ml Balance -350 ml -550 ml 530 ml Results Result Diagram: 02/25/17 1037 02/25/17 1037 Results 24 hrs Laboratory Tests Test 02/25/17 10:37 White Blood Count 6.1 # Red Blood Count 2.98 L Hemoglobin 9.3 L Hematocrit 28.6 L Mean Corpuscular Volume 96.0 Mean Corpuscular Hemoglobin 31.2 Mean Corpuscular Hemoglobin Concent 32.5 Red Cell Distribution Width 14.2 Platelet Count 337 Mean Platelet Volume 10.8 H Neutrophils % 73.9 Lymphocytes % 5.3 L Monocytes % 13.5 H Eosinophils % 3.8 Basophils % 1.0 Nucleated Red Blood Cells % 0.0 Neutrophils # 4.5 Lymphocytes # 0.3 L Monocytes # 0.8 Eosinophils # 0.2 Basophils # 0.1 Nucleated Red Blood Cells # 0.0 Sodium Level 137 Potassium Level 3.5 Chloride Level 102 Carbon Dioxide Level 26 Anion Gap 13 Blood Urea Nitrogen 7 Creatinine 0.85 Glucose Level 113 Calcium Level 8.1 L Phosphorus Level 2.9 Magnesium Level 1.6 L Medications Medications Current Medications Acetaminophen (Tylenol Tab) 650 mg Q6H PRN PO PAIN LEVEL 1-3 OR FEVER Last administered on 02/18/17 20:47; Admin Dose 650 MG; Start 02/12/17 at 14:00 Oxycodone/ Acetaminophen (Percocet (5/ 325)) 1 tab Q6H PRN PO SEVERE PAIN LEVEL 7-10 Last administered on 02/20/17 11:59; Admin Dose 1 TAB; Start 02/12 at 14:00 Bisacodyl (Dulcolax) 5 mg DAILY PRN PO CONSTIPATION; Start 02/12/17 at 14:00 Pantoprazole (Protonix Tab) 40 mg DAILY@06 PO Last administered on 02/25/17 05:39; Admin Dose 40 MG; Start 02/13/17 at 06:00 Aspirin (Halfprin) 81 mg DAILY PO Last administered on 02/25/17 08:56; Admin Dose 81 MG; Start 02/13/17 at 09:00 Atorvastatin Calcium (Lipitor) 20 mg HS PO Last administered on 02/24/17 21: 37; Admin Dose 20 MG; Start 02/12/17 at 21:00 Guaifenesin/ Dextromethorphan (Robitussin Dm Liquid Cup) 5 ml Q4H PRN PO cough Last administered on 02/22/17 14:41; Admin Dose 5 ML; Start 02/15/17 at 20:00 IV Flush (NS 10 ml) 10 ml PRN PRN IV IV PROTOCOL; Start 02/16/17 at 13:00 Carvedilol (Coreg) 3.125 mg BID PO Last administered on 02/24/17 09:43; Admin Dose 3.125 MG; Start 02/17/17 at 21:00 Cephalexin (Keflex) 500 mg BID PO Last administered on 02/20/17 21:19; Admin Dose 500 MG; Start 02/19/17 at 09:00; Status Future Hold Acetaminophen (Tylenol Tab) 650 mg Q4H PRN PO NON-CARDIAC PAIN LEVEL (1-3); Start 02/21/17 at 08:30 Morphine Sulfate (morphine) 2 mg Q2H PRN IV FOR NON CARDIAC PAIN (4-10); Start 02/21/17 at 08:30 Al Hydrox/Mg Hydrox/Simethicone (Mag-Al Plus) 30 ml Q4H PRN PO GASTROINTESTINAL UPSET; Start 02/21/17 at 08:30 Ondansetron HCl 4 mg 4 mg Q4H PRN IV NAUSEA AND/OR VOMITING; Start 02/21/17 at 08:30 Cefazolin Sodium (Ancef 1 Gm/50 ml (Pmx)) 50 ml @ 100 mls/hr Q8 IVPB Last administered on 02/25/17 13:23; Admin Dose 100 MLS/HR; Start 02/21/17 at 09: 00 Miscellaneous Information (* Miscellaneous Pharmacy Order) DC all Lovenox, Hepari... ONCE XX ; Start 02/21/17 at 08:30 Phenol (Cepastat Lozenge) 1 lozenge Q4 PRN MT sore throat Last administered on 02/23/17 11:21; Admin Dose 1 LOZENGE; Start 02/22/17 at 14:30 Lisinopril (Zestril) 2.5 mg DAILY PO Last administered on 02/24/17t 09:43; Admin Dose 2.5 MG; Start 02/24/17 at 09:00 DINA SORIANO Feb 25, 2017 15:54
[2017-02-25 16:17] VITALS: BP 141/63; RESP 20
[2017-02-25] MEDS ORDERED: POTASSIUM CHLORIDE 20 MEQ POWDER FOR ORAL SOLN PO ONE (18:30)
[2017-02-25 19:20] VITALS: BP 119/57; RESP 18
[2017-02-25] MEDS ORDERED: MAGNESIUM SULFATE 2 GM/50 ML 50 ML IVPB ONE (20:00)
[2017-02-25] MEDS: ATORVASTATIN 20 MG TAB PO SCH (21:22)
[2017-02-25] MEDS ORDERED: IOHEXOL 100 ML ONE (23:03)
[2017-02-25] MEDS ORDERED: SOD CHLORIDE 0.9% 100 ML ONE (23:03)
[2017-02-26 01:55] VITALS: BP 111/61; RESP 18
--- NOTE | 2017-02-26 02:08 | RADRPT ---
PROCEDURE: CT angiogram of the chest with contrast. CLINICAL INDICATION: Chest pain. TECHNIQUE: CT angiogram of the chest was obtained using a multi-detector high-resolution CT. Con tiguous axial images were obtained during the dynamic injection of 100 cc of Omnipaque 350 intraveno us contrast. Coronal and sagittal reformatted images were obtained. 3-D reformatted images were al so obtained. Images were reviewed on a PACS workstation. One or more of the following dose reduction techniques were used: - Automated exposure control. - Adjustment of the mA and/or kV according to patient size. - Use of iterative reconstruction technique. Exam CTD/vol = 9.39 mGy. Total exam DLP = 384.59 mGy-cm. COMPARISON: 01/31/2017. FINDINGS: The main pulmonary artery followed to the segmental divisions are well opacified. There is no filli ng defect or evidence of pulmonary embolism. The heart is normal in size. There is no pericardial thickening or effusion. There is mild aneurysmal dilatation of the ascending aorta measuring up to 3.5 cm in diameter. There are mild scattered atherosclerotic calcifications. There is no evidence of aortic dissection. There is a left-sided pacemaker. The patient is status post right mastectomy and axillary lymph node dissection. The visualized thyroid is unremarkable. There are multiple large left axillary lymph nodes with the largest measuring 2.3 x 2.0 cm. There is a posterior lateral mass measuring approxim ately 3.0 cm AP by 5.7 cm transverse by 7.8 cm sagittal with anterior deviation of the michael. There are no enlarged hilar lymph nodes by CT criteria. There are bilateral pleural catheters. There are bilateral large pleural effusions with underlying atelectasis. The central tracheobronchial tree is within normal limits. There are diffuse sclerotic and lytic metastases throughout the bony skeleton. There is a small hiat al hernia. Limited evaluation of the upper abdomen demonstrates a partially visualized atrophic left kidney. IMPRESSION: No evidence of pulmonary embolism or aortic dissection. Mild dilatation of the ascending aorta measuring up to 3.5 cm. Posterior mediastinal mass measuring 3.0 x 5.7 x 7.8 cm could represent lymphadenopathy or neoplasti c disease, slightly increased compared with 01/31/2017. Bilateral large pleural effusions with underlying atelectasis, increased on the right. There are nhi ateral pleural catheters in place. Mild left axillary lymphadenopathy, increased compared with the prior study. Status post right mastectomy and axillary lymph node dissection. Diffuse osseous metastases. Small hiatal hernia. .Sarthak Cervantes MD, Date Time Electronically viewed and signed by .Sarthak Cervantes MD, on 02/26/2017 02:07 .T/
[2017-02-26] MEDS: PANTOPRAZOLE (EC) 40 MG TAB PO SCH (05:43)
[2017-02-26] MEDS: CEFAZOLIN 1 GM/50 ML (PMX) 50 ML IVPB SCH ×3 (05:43→22:20)
[2017-02-26 07:50] VITALS: BP 118/58; RESP 18
[2017-02-26] MEDS: ASPIRIN (EC) 81 MG TAB PO SCH (09:18)
[2017-02-26] MEDS: LISINOPRIL 5 MG TAB PO SCH (09:19)
--- NOTE | 2017-02-26 10:08 | CONS ---
Date/Time of Note Date/Time of Note DATE: 02/26/17 TIME: 10:07 Consult Date/Type/Reason Admit Date/Time Feb 12, 2017 at 09:06 Type of Consultation: Pulmonary Ordering Provider: GARY CROSS MD Objective Vital Signs Date Time Temp Pulse Resp B/P Pulse Ox O2 Delivery O2 Flow Rate FiO2 02/26/17 07:50 97.6 96 18 118/58 97 02/26/17 00:31 3.0 02/25/17 21:39 Nasal Cannula 02/24/17 07:41 28 Intake and Output 02/25/17 02/25/17 02/26/17 15:00 23:00 07:00 Intake Total 430 ml 290 ml Balance 430 ml 290 ml Exam Patient comfortable this morning. Speech therapy recommendations noted. Results/Medications Result Diagram: 02/25/17 1037 02/25/17 1037 Results 24 hrs Laboratory Tests Test 02/25/17 10:37 White Blood Count 6.1 # Red Blood Count 2.98 L Hemoglobin 9.3 L Hematocrit 28.6 L Mean Corpuscular Volume 96.0 Mean Corpuscular Hemoglobin 31.2 Mean Corpuscular Hemoglobin Concent 32.5 Red Cell Distribution Width 14.2 Platelet Count 337 Mean Platelet Volume 10.8 H Neutrophils % 73.9 Lymphocytes % 5.3 L Monocytes % 13.5 H Eosinophils % 3.8 Basophils % 1.0 Nucleated Red Blood Cells % 0.0 Neutrophils # 4.5 Lymphocytes # 0.3 L Monocytes # 0.8 Eosinophils # 0.2 Basophils # 0.1 Nucleated Red Blood Cells # 0.0 Sodium Level 137 Potassium Level 3.5 Chloride Level 102 Carbon Dioxide Level 26 Anion Gap 13 Blood Urea Nitrogen 7 Creatinine 0.85 Glucose Level 113 Calcium Level 8.1 L Phosphorus Level 2.9 Magnesium Level 1.6 L Medications Current Medications Acetaminophen (Tylenol Tab) 650 mg Q6H PRN PO PAIN LEVEL 1-3 OR FEVER Last administered on 02/18/17 20:47; Admin Dose 650 MG; Start 02/12/17 at 14:00 Oxycodone/ Acetaminophen (Percocet (5/ 325)) 1 tab Q6H PRN PO SEVERE PAIN LEVEL 7-10 Last administered on 02/20/17 11:59; Admin Dose 1 TAB; Start 02/12 at 14:00 Bisacodyl (Dulcolax) 5 mg DAILY PRN PO CONSTIPATION; Start 02/12/17 at 14:00 Pantoprazole (Protonix Tab) 40 mg DAILY@06 PO Last administered on 02/26/17 05:43; Admin Dose 40 MG; Start 02/13/17 at 06:00 Aspirin (Halfprin) 81 mg DAILY PO Last administered on 02/26/17 09:18; Admin Dose 81 MG; Start 02/13/17 at 09:00 Atorvastatin Calcium (Lipitor) 20 mg HS PO Last administered on 02/25/17 21: 22; Admin Dose 20 MG; Start 02/12/17 at 21:00 Guaifenesin/ Dextromethorphan (Robitussin Dm Liquid Cup) 5 ml Q4H PRN PO cough Last administered on 02/22/17 14:41; Admin Dose 5 ML; Start 02/15/17 at 20:00 IV Flush (NS 10 ml) 10 ml PRN PRN IV IV PROTOCOL; Start 02/16/17 at 13:00 Carvedilol (Coreg) 3.125 mg BID PO Last administered on 02/26/17 09:19; Admin Dose 3.125 MG; Start 02/17/17 at 21:00 Cephalexin (Keflex) 500 mg BID PO Last administered on 02/20/17 21:19; Admin Dose 500 MG; Start 02/19/17 at 09:00; Status Future Hold Acetaminophen (Tylenol Tab) 650 mg Q4H PRN PO NON-CARDIAC PAIN LEVEL (1-3); Start 02/21/17 at 08:30 Morphine Sulfate (morphine) 2 mg Q2H PRN IV FOR NON CARDIAC PAIN (4-10); Start 02/21/17 at 08:30 Al Hydrox/Mg Hydrox/Simethicone (Mag-Al Plus) 30 ml Q4H PRN PO GASTROINTESTINAL UPSET; Start 02/21/17 at 08:30 Ondansetron HCl 4 mg 4 mg Q4H PRN IV NAUSEA AND/OR VOMITING; Start 02/21/17 at 08:30 Cefazolin Sodium (Ancef 1 Gm/50 ml (Pmx)) 50 ml @ 100 mls/hr Q8 IVPB Last administered on 02/26/17 05:43; Admin Dose 100 MLS/HR; Start 02/21/17 at 09: 00 Miscellaneous Information (* Miscellaneous Pharmacy Order) DC all Lovenox, Hepari... ONCE XX ; Start 02/21/17 at 08:30 Phenol (Cepastat Lozenge) 1 lozenge Q4 PRN MT sore throat Last administered on 02/23/17 11:21; Admin Dose 1 LOZENGE; Start 02/22/17 at 14:30 Lisinopril (Zestril) 2.5 mg DAILY PO Last administered on 02/26/17 09:19; Admin Dose 2.5 MG; Start 02/24/17 at 09:00 Assessment/Plan Chief Complaint/Hosp Course IMP: 1. Recurrent large pleural effusion status post Pleurx catheter placement, radiographic improvement following drainage. 2. Metastatic breast cancer 3. Hypoxemic respiratory insufficiency 4. Renal insufficiency RECS: 1. Drain Pleurx catheter every third day Chest x-ray shows minimal pleural effusions 2. Pending possible PEG tube placement. DC planning okay from primary standpoint Problems: STAN MAC MD, [facility] Feb 26, 2017 10:08
[2017-02-26] MEDS: ALBUTEROL/IPRATROPIUM (NEB) 3 ML AMP HHN SCH ×3 (11:02→20:10)
--- NOTE | 2017-02-26 12:44 | PN ---
Date/Time of Note Date/Time of Note DATE: 02/26/17 TIME: 12:42 Assessment/Plan VTE Prophylaxis VTE Prophylaxis Intervention: SCD's Lines/Catheters IV Catheter Type (from Nrs): Mid Line Urinary Cath still in place: Yes Reason Cath still needed: terminal illness/intractable pain Assessment/Plan Chief Complaint/Hosp Course Patient is a 81-year-old female with past medical history of metastatic breast cancer who presents for worsening malignant pleural effusions. Recently discharged #. Bilateral pleural effusions, likely malignant - Pulmonology on board. pleurx cath drain Q3days, 500cc each side, 1000cc max when drained - Continue on NC and wean as tolerating to keep saturations >90% #dysphasia -swallow study noted, no significant issues -barium swallow showed narrowing, ?dilation of aorta, CT angio ordered, showing increased mass and mildly dilated aorta. cardiology recs appreciated -GI recs appreciated. peg tube? #. Hypotension- resolved - add medication as tolerating - will continue to monitor #. Leukopenia-stable #. Cardiomyopathy, congestive heart failure, acute on chronic ejection fraction 45% - Cardiology on board and recommendations appreciated. - Continue statin and aspirin. coreg restarted. titrate up as able. - ICD battery change done #. 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 Tay, oncology, outpatient. - Palliative on board and appreciated consultation. Son requesting that Dr. Anderson not seek out family. They will ask for his assistance as needed. Dr. Anderson made aware #. Anemia of chronic disease - currently stable - will continue monitoring #. Acute kidney injury, resolved - Nephrology consultation appreciated. improvement in renal function and signed off case. Will reconsult if any issues #. Disposition -awaiting cards and GI recs, PEG tube? Problems: Subjective 24 Hr Interval Summary Free Text/Dictation still has some difficultly swallowing Exam/Review of Systems Vital Signs Vitals Vital Signs Date Time Temp Pulse Resp B/P Pulse Ox O2 Delivery O2 Flow Rate FiO2 02/26/17 07:50 97.6 96 18 118/58 97 02/26/17 00:31 3.0 02/25/17 21:39 Nasal Cannula 02/24/17 07:41 28 Intake and Output 02/25/17 02/25/17 02/26/17 15:00 23:00 07:00 Intake Total 430 ml 290 ml Balance 430 ml 290 ml Exam Physical exam General: Patient is laying in bed and answers questions appropriately Mentation: Patient is alert and oriented 4, Head: Normocephalic atraumatic Eyes: EOMI, pupils reactive to light Neck: Supple, nontender, midline Respiratory: Clear to auscultation bilaterally Cardiovascular: regular rate, no obvious murmurs Gastrointestinal: non-tender to palpation, bowel sounds heard. Neurological: Moves all extremities spontaneously Skin: procedure incision site CDI, pleurex cath sites CDI bilaterally Results Result Diagram: 02/25/17 1037 02/25/17 1037 Medications Medications Current Medications Acetaminophen (Tylenol Tab) 650 mg Q6H PRN PO PAIN LEVEL 1-3 OR FEVER Last administered on 02/18/17 20:47; Admin Dose 650 MG; Start 02/12/17 at 14:00 Oxycodone/ Acetaminophen (Percocet (5/ 325)) 1 tab Q6H PRN PO SEVERE PAIN LEVEL 7-10 Last administered on 02/20/17 11:59; Admin Dose 1 TAB; Start 02/12 at 14:00 Bisacodyl (Dulcolax) 5 mg DAILY PRN PO CONSTIPATION; Start 02/12/17 at 14:00 Pantoprazole (Protonix Tab) 40 mg DAILY@06 PO Last administered on 02/26/17 05:43; Admin Dose 40 MG; Start 02/13/17 at 06:00 Aspirin (Halfprin) 81 mg DAILY PO Last administered on 02/26/17 09:18; Admin Dose 81 MG; Start 02/13/17 at 09:00 Atorvastatin Calcium (Lipitor) 20 mg HS PO Last administered on 02/25/17 21: 22; Admin Dose 20 MG; Start 02/12/17 at 21:00 Guaifenesin/ Dextromethorphan (Robitussin Dm Liquid Cup) 5 ml Q4H PRN PO cough Last administered on 02/22/17 14:41; Admin Dose 5 ML; Start 02/15/17 at 20:00 IV Flush (NS 10 ml) 10 ml PRN PRN IV IV PROTOCOL; Start 02/16/17 at 13:00 Carvedilol (Coreg) 3.125 mg BID PO Last administered on 02/26/17 09:19; Admin Dose 3.125 MG; Start 02/17/17 at 21:00 Cephalexin (Keflex) 500 mg BID PO Last administered on 02/20/17 21:19; Admin Dose 500 MG; Start 02/19/17 at 09:00; Status Future Hold Acetaminophen (Tylenol Tab) 650 mg Q4H PRN PO NON-CARDIAC PAIN LEVEL (1-3); Start 02/21/17 at 08:30 Morphine Sulfate (morphine) 2 mg Q2H PRN IV FOR NON CARDIAC PAIN (4-10); Start 02/21/17 at 08:30 Al Hydrox/Mg Hydrox/Simethicone (Mag-Al Plus) 30 ml Q4H PRN PO GASTROINTESTINAL UPSET; Start 02/21/17 at 08:30 Ondansetron HCl 4 mg 4 mg Q4H PRN IV NAUSEA AND/OR VOMITING; Start 02/21/17 at 08:30 Cefazolin Sodium (Ancef 1 Gm/50 ml (Pmx)) 50 ml @ 100 mls/hr Q8 IVPB Last administered on 02/26/17 05:43; Admin Dose 100 MLS/HR; Start 02/21/17 at 09: 00 Miscellaneous Information (* Miscellaneous Pharmacy Order) DC all Lovenox, Hepari... ONCE XX ; Start 02/21/17 at 08:30 Phenol (Cepastat Lozenge) 1 lozenge Q4 PRN MT sore throat Last administered on 02/23/17 11:21; Admin Dose 1 LOZENGE; Start 02/22/17 at 14:30 Lisinopril (Zestril) 2.5 mg DAILY PO Last administered on 02/26/17 09:19; Admin Dose 2.5 MG; Start 02/24/17 at 09:00 DIMA COVARRUBIAS Feb 26, 2017 12:44
--- NOTE | 2017-02-26 13:24 | CONS ---
Date/Time of Note Date/Time of Note DATE: 02/26/17 TIME: 13:22 Assessment/Plan Assessment/Plan Additional Assessment/Plan CHF-systolic acute on chronic Cardiomyopathy s/p ICD , s/p generator change Met Breast CA Renal failure R pleural effusion s/p Pleur-x catheter placement Continue Coreg Continue Lisinopril Continue Lipitor Continue Antibiotics replete potassium and Magnesium Consultation Date/Type/Reason Admit Date/Time Feb 12, 2017 at 09:06 Initial Consult Date Type of Consultation: Pulmonary Referring Provider: GARY CROSS MD Exam/Review of Systems Vital Signs Vitals Vital Signs Date Time Temp Pulse Resp B/P Pulse Ox O2 Delivery O2 Flow Rate FiO2 02/26/17 07:50 97.6 96 18 118/58 97 02/26/17 00:31 3.0 02/25/17 21:39 Nasal Cannula 02/24/17 07:41 28 Intake and Output 02/25/17 02/25/17 02/26/17 15:00 23:00 07:00 Intake Total 430 ml 290 ml Balance 430 ml 290 ml Exam Constitutional: alert Head: atraumatic, normocephalic Respiratory: clear to auscultation Cardiovascular: regular rate and rhythm Gastrointestinal: nl liver, spleen, non-tender, soft Results Result Diagram: 02/25/17 1037 02/25/17 1037 Medications Medications Current Medications Acetaminophen (Tylenol Tab) 650 mg Q6H PRN PO PAIN LEVEL 1-3 OR FEVER Last administered on 02/18/17 20:47; Admin Dose 650 MG; Start 02/12/17 at 14:00 Oxycodone/ Acetaminophen (Percocet (5/ 325)) 1 tab Q6H PRN PO SEVERE PAIN LEVEL 7-10 Last administered on 02/20/17 11:59; Admin Dose 1 TAB; Start 02/12 at 14:00 Bisacodyl (Dulcolax) 5 mg DAILY PRN PO CONSTIPATION; Start 02/12/17 at 14:00 Pantoprazole (Protonix Tab) 40 mg DAILY@06 PO Last administered on 02/26/17 05:43; Admin Dose 40 MG; Start 02/13/17 at 06:00 Aspirin (Halfprin) 81 mg DAILY PO Last administered on 02/26/17 09:18; Admin Dose 81 MG; Start 02/13/17 at 09:00 Atorvastatin Calcium (Lipitor) 20 mg HS PO Last administered on 02/25/17 21: 22; Admin Dose 20 MG; Start 02/12/17 at 21:00 Guaifenesin/ Dextromethorphan (Robitussin Dm Liquid Cup) 5 ml Q4H PRN PO cough Last administered on 02/22/17 14:41; Admin Dose 5 ML; Start 02/15/17 at 20:00 IV Flush (NS 10 ml) 10 ml PRN PRN IV IV PROTOCOL; Start 02/16/17 at 13:00 Carvedilol (Coreg) 3.125 mg BID PO Last administered on 02/26/17 09:19; Admin Dose 3.125 MG; Start 02/17/17 at 21:00 Cephalexin (Keflex) 500 mg BID PO Last administered on 02/20/17 21:19; Admin Dose 500 MG; Start 02/19/17 at 09:00; Status Future Hold Acetaminophen (Tylenol Tab) 650 mg Q4H PRN PO NON-CARDIAC PAIN LEVEL (1-3); Start 02/21/17 at 08:30 Morphine Sulfate (morphine) 2 mg Q2H PRN IV FOR NON CARDIAC PAIN (4-10); Start 02/21/17 at 08:30 Al Hydrox/Mg Hydrox/Simethicone (Mag-Al Plus) 30 ml Q4H PRN PO GASTROINTESTINAL UPSET; Start 02/21/17 at 08:30 Ondansetron HCl 4 mg 4 mg Q4H PRN IV NAUSEA AND/OR VOMITING; Start 02/21/17 at 08:30 Cefazolin Sodium (Ancef 1 Gm/50 ml (Pmx)) 50 ml @ 100 mls/hr Q8 IVPB Last administered on 02/26/17 05:43; Admin Dose 100 MLS/HR; Start 02/21/17 at 09: 00 Miscellaneous Information (* Miscellaneous Pharmacy Order) DC all Lovenox, Hepari... ONCE XX ; Start 02/21/17 at 08:30 Phenol (Cepastat Lozenge) 1 lozenge Q4 PRN MT sore throat Last administered on 02/23/17 11:21; Admin Dose 1 LOZENGE; Start 02/22/17 at 14:30 Lisinopril (Zestril) 2.5 mg DAILY PO Last administered on 02/26/17t 09:19; Admin Dose 2.5 MG; Start 02/24/17 at 09:00 STEVEN HERNANDEZ M.D. Feb 26, 2017 13:24
--- NOTE | 2017-02-26 13:40 | PN ---
Date/Time of Note Date/Time of Note DATE: 02/26/17 TIME: 13:39 Assessment/Plan VTE Prophylaxis VTE Prophylaxis Intervention: SCD's Lines/Catheters IV Catheter Type (from Nrs): Mid Line Urinary Cath still in place: Yes Reason Cath still needed: other (indicate) (Monitor output) Assessment/Plan Chief Complaint/Hosp Course Summary Assessment and Plan: Assessment: bilateral pleural effusions, likely malignant pulmonary edema Leukopenia Metastatic breast cancer to bone and pelvis Anemia of chronic disease Acute kidney injury Cardiomyopathy, congestive heart failure, acute on chronic ejection fraction 45% , Plan: S/p barium swallow during due to extrinsic factor Discussed possible PEG placement tomorrow, however only/patient do not want to move forward with PEG placement We will move forward with EGD with dilatation tomorrow Patient seen in collaboration with Subjective: Course reviewed with nursing staff Patient interviewed and examined All labs, imaging and other results reviewed Family not completely on board with PEG placement, we will move forward with EGD tomorrow with dilatation Patient had similar findings last year and dilatation seem to help. both verbalized understanding PHYSICAL EXAMINATION: GENERAL: Frail, alert and oriented 3, no distress SKIN: No lesions, no stigmata chronic liver disease, no evidence of bleeding diathesis LYMPHATIC: No palpable lymphadenopathy. HEAD: Normocephalic, atraumatic, no tenderness. EYES: Pupils equal reactive to light and accommodation, full extraocular movements, sclera clear, non-icteric, no discharge. EARS/NOSE AND THROAT: Ears normal, nose normal, oropharynx normal NECK: Supple, no masses, thyroid normal, JVP within normal limits, carotids normal without bruits. CHEST: pleurx cath drain CARDIOVASCULAR: Heart: Regular rate and rhythm, no murmurs, gallops or rubs. Peripheral pulses present within normal limits, no cyanosis, clubbing or edemas. No pulsatile abdominal mass RESPIRATORY: Diminished, GASTROINTESTINAL AND LIVER: Abdomen: Soft, non tenderness, non-distended, no hernias, no masses, no organomegaly, no ascites, no guarding, no rebound tenderness, normoactive bowel sounds. Rectal: Deferred. GENITOURINARY:Female genitalia within normal limits. EXTREMITIES: No cyanosis, clubbing or edema. Problems: Exam/Review of Systems Vital Signs Vitals Vital Signs Date Time Temp Pulse Resp B/P Pulse Ox O2 Delivery O2 Flow Rate FiO2 02/26/17 07:50 97.6 96 18 118/58 97 02/26/17 00:31 3.0 02/25/17 21:39 Nasal Cannula 02/24/17 07:41 28 Intake and Output 02/25/17 02/25/17 02/26/17 15:00 23:00 07:00 Intake Total 430 ml 290 ml Balance 430 ml 290 ml Results Result Diagram: 02/25/17 1037 02/25/17 1037 Medications Medications Current Medications Acetaminophen (Tylenol Tab) 650 mg Q6H PRN PO PAIN LEVEL 1-3 OR FEVER Last administered on 02/18/17 20:47; Admin Dose 650 MG; Start 02/12/17 at 14:00 Oxycodone/ Acetaminophen (Percocet (5/ 325)) 1 tab Q6H PRN PO SEVERE PAIN LEVEL 7-10 Last administered on 02/20/17 11:59; Admin Dose 1 TAB; Start 02/12 at 14:00 Bisacodyl (Dulcolax) 5 mg DAILY PRN PO CONSTIPATION; Start 02/12/17 at 14:00 Pantoprazole (Protonix Tab) 40 mg DAILY@06 PO Last administered on 02/26/17 05:43; Admin Dose 40 MG; Start 02/13/17 at 06:00 Aspirin (Halfprin) 81 mg DAILY PO Last administered on 02/26/17 09:18; Admin Dose 81 MG; Start 02/13/17 at 09:00 Atorvastatin Calcium (Lipitor) 20 mg HS PO Last administered on 02/25/17 21: 22; Admin Dose 20 MG; Start 02/12/17 at 21:00 Guaifenesin/ Dextromethorphan (Robitussin Dm Liquid Cup) 5 ml Q4H PRN PO cough Last administered on 02/22/17 14:41; Admin Dose 5 ML; Start 02/15/17 at 20:00 IV Flush (NS 10 ml) 10 ml PRN PRN IV IV PROTOCOL; Start 02/16/17 at 13:00 Carvedilol (Coreg) 3.125 mg BID PO Last administered on 02/26/17 09:19; Admin Dose 3.125 MG; Start 02/17/17 at 21:00 Cephalexin (Keflex) 500 mg BID PO Last administered on 02/20/17 21:19; Admin Dose 500 MG; Start 02/19/17 at 09:00; Status Future Hold Acetaminophen (Tylenol Tab) 650 mg Q4H PRN PO NON-CARDIAC PAIN LEVEL (1-3); Start 02/21/17 at 08:30 Morphine Sulfate (morphine) 2 mg Q2H PRN IV FOR NON CARDIAC PAIN (4-10); Start 02/21/17 at 08:30 Al Hydrox/Mg Hydrox/Simethicone (Mag-Al Plus) 30 ml Q4H PRN PO GASTROINTESTINAL UPSET; Start 02/21/17 at 08:30 Ondansetron HCl 4 mg 4 mg Q4H PRN IV NAUSEA AND/OR VOMITING; Start 02/21/17 at 08:30 Cefazolin Sodium (Ancef 1 Gm/50 ml (Pmx)) 50 ml @ 100 mls/hr Q8 IVPB Last administered on 02/26/17 05:43; Admin Dose 100 MLS/HR; Start 02/21/17 at 09: 00 Miscellaneous Information (* Miscellaneous Pharmacy Order) DC all Lovenox, Hepari... ONCE XX ; Start 02/21/17 at 08:30 Phenol (Cepastat Lozenge) 1 lozenge Q4 PRN MT sore throat Last administered on 02/23/17 11:21; Admin Dose 1 LOZENGE; Start 02/22/17 at 14:30 Lisinopril 2.5 mg 2.5 mg DAILY PO Last administered on 02/26/17 09:19; Admin Dose 2.5 MG; Start 02/24/17 at 09:00 Magnesium Sulfate 50 ml @ 25 mls/hr ONCE ONCE IVPB ; Start 02/26/17 at 14:00; Stop 02/26/17 at 15:59 Potassium Chloride (KCl 40 MEQ/250 ML NS) 250 ml @ 62.5 mls/hr ONCE ONCE IVPB ; Start 02/26/17 at 15:00; Stop 02/26/17 at 18:59 DINA SORIANO Feb 26, 2017 13:40
[2017-02-26] MEDS ORDERED: MAGNESIUM SULFATE 2 GM/50 ML 50 ML IVPB ONE (14:00)
[2017-02-26 14:50] VITALS: BP 161/81; RESP 16
[2017-02-26] MEDS ORDERED: POTASSIUM CHLORIDE 250 ML IVPB ONE (15:00)
[2017-02-26] MEDS: GUAIFENESIN/DM 5ML CUP PO PRN (15:18)
[2017-02-26 19:30] VITALS: BP 134/62; RESP 18
[2017-02-26 19:40] VITALS: BP 103/55; PULSE 102
[2017-02-26] MEDS: ATORVASTATIN 20 MG TAB PO SCH (21:41)
[2017-02-27] VITALS (12 sets, daily range): BP systolic 103–165; BP diastolic 56–88; PULSE 95–118; RESP 14–30
[2017-02-27] MEDS: PANTOPRAZOLE (EC) 40 MG TAB PO SCH (06:07)
[2017-02-27] MEDS: CEFAZOLIN 1 GM/50 ML (PMX) 50 ML IVPB SCH ×3 (06:07→20:47)
[2017-02-27] MEDS ORDERED: LIDOCAINE 2% (SDV) 5 ML INJ ONE (07:00)
[2017-02-27] MEDS: ALBUTEROL/IPRATROPIUM (NEB) 3 ML AMP HHN SCH ×3 (07:49→20:00)
[2017-02-27] MEDS: ASPIRIN (EC) 81 MG TAB PO SCH (08:45)
[2017-02-27] MEDS: LISINOPRIL 5 MG TAB PO SCH (08:46)
--- NOTE | 2017-02-27 12:23 | PN ---
Date/Time of Note Date/Time of Note DATE: 02/27/17 TIME: 12:23 Assessment/Plan VTE Prophylaxis VTE Prophylaxis Intervention: SCD's Lines/Catheters IV Catheter Type (from Nrsg): Mid Line Urinary Cath still in place: Yes Reason Cath still needed: other (indicate) (desat with movement) Assessment/Plan Assessment/Plan 1. Dysphagia - GI on board and recommendations appreciated. Plans for EGD with dilation after findings seen on barium swallow - Swallow study noted, no significant issues - Still refusing PEG placement at this time 2. Bilateral pleural effusions, likely malignant - Pulmonology on board. pleurx cath drain Q3days, 500cc each side, 1000cc max when drained - Continue on NC and wean as tolerating to keep saturations >90% 3. Tachycardia - Cardiology on board and consultation appreciated - increase in coreg for better HR control 4. Hypotension- resolved - will continue to monitor 5. Leukopenia-stable 6. Cardiomyopathy, congestive heart failure, acute on chronic ejection fraction 45% - Cardiology on board and recommendations appreciated. - Continue statin and aspirin and coreg - ICD battery change done 7. 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 Tay, oncology, outpatient. - Palliative on board and appreciated consultation. Son requesting that Dr. Anderson not seek out family. They will ask for his assistance as needed. Dr. Anderson made aware 8. Anemia of chronic disease - currently stable - will continue monitoring 9. Acute kidney injury, resolved - Nephrology consultation appreciated. improvement in renal function and signed off case. Will reconsult if any issues 10. Disposition - Plans for EGD with dilation - once tolerating PO can d/c plan Subjective 24 Hr Interval Summary Free Text/Dictation Patient denies any respiratory issues but still experiencing discomfort at epigastric area. Still agreeable to EGD but not to PEG at this time. No acute overnight events. Exam/Review of Systems Vital Signs Vitals Vital Signs Date Time Temp Pulse Resp B/P Pulse Ox O2 Delivery O2 Flow Rate FiO2 02/27/17 09:00 Nasal Cannula 3.0 02/27/17 07:56 97.6 110 20 128/60 98 02/24/17 07:41 28 Intake and Output 02/26/17 02/26/17 02/27/17 15:00 23:00 07:00 Intake Total 1320 ml 450 ml Balance 1320 ml 450 ml Exam General: Patient is laying in bed and answers questions appropriately. NAD Mentation: Patient is alert and oriented 4, Head: Normocephalic atraumatic Eyes: EOMI, pupils reactive to light Neck: Supple, nontender, midline Respiratory: Clear to auscultation bilaterally Cardiovascular: regular rate, no obvious murmurs Gastrointestinal: soft, nondistended, non-tender to palpation, bowel sounds heard. Neurological: Moves all extremities spontaneously Skin: pleurex cath sites CDI bilaterally Results Result Diagram: 02/27/17 0437 02/27/17 0437 Results 24 hrs Laboratory Tests Test 02/27/17 04:37 White Blood Count 7.3 Red Blood Count 3.05 L Hemoglobin 9.6 L Hematocrit 29.5 L Mean Corpuscular Volume 96.7 Mean Corpuscular Hemoglobin 31.5 Mean Corpuscular Hemoglobin Concent 32.5 Red Cell Distribution Width 14.3 Platelet Count 395 Mean Platelet Volume 11.0 H Neutrophils % 71.1 Lymphocytes % 6.9 L Monocytes % 13.2 H Eosinophils % 5.4 Basophils % 1.2 Nucleated Red Blood Cells % 0.0 Neutrophils # 5.2 Lymphocytes # 0.5 L Monocytes # 1.0 H Eosinophils # 0.4 Basophils # 0.1 Nucleated Red Blood Cells # 0.0 Sodium Level 137 Potassium Level 4.4 Chloride Level 105 Carbon Dioxide Level 26 Anion Gap 10 Blood Urea Nitrogen 8 Creatinine 0.82 Glucose Level 108 Calcium Level 8.3 L Phosphorus Level 2.6 Magnesium Level 2.3 Medications Medications Current Medications Acetaminophen (Tylenol Tab) 650 mg Q6H PRN PO PAIN LEVEL 1-3 OR FEVER Last administered on 02/18/17 20:47; Admin Dose 650 MG; Start 02/12/17 at 14:00 Oxycodone/ Acetaminophen (Percocet (5/ 325)) 1 tab Q6H PRN PO SEVERE PAIN LEVEL 7-10 Last administered on 02/20/17 11:59; Admin Dose 1 TAB; Start 02/12 at 14:00 Bisacodyl (Dulcolax) 5 mg DAILY PRN PO CONSTIPATION; Start 02/12/17 at 14:00 Pantoprazole (Protonix Tab) 40 mg DAILY@06 PO Last administered on 02/27/17 06:07; Admin Dose 40 MG; Start 02/13/17 at 06:00 Aspirin (Halfprin) 81 mg DAILY PO Last administered on 02/27/17 08:45; Admin Dose 81 MG; Start 02/13/17 at 09:00 Atorvastatin Calcium (Lipitor) 20 mg HS PO Last administered on 02/26/17 21: 41; Admin Dose 20 MG; Start 02/12/17 at 21:00 Guaifenesin/ Dextromethorphan (Robitussin Dm Liquid Cup) 5 ml Q4H PRN PO cough Last administered on 02/26/17 15:18; Admin Dose 5 ML; Start 02/15/17 at 20:00 IV Flush (NS 10 ml) 10 ml PRN PRN IV IV PROTOCOL; Start 02/16/17 at 13:00 Carvedilol (Coreg) 3.125 mg BID PO Last administered on 02/27/17 08:45; Admin Dose 3.125 MG; Start 02/17/17 at 21:00 Cephalexin (Keflex) 500 mg BID PO Last administered on 02/20/17 21:19; Admin Dose 500 MG; Start 02/19/17 at 09:00; Status Future Hold Acetaminophen (Tylenol Tab) 650 mg Q4H PRN PO NON-CARDIAC PAIN LEVEL (1-3); Start 02/21/17 at 08:30 Morphine Sulfate (morphine) 2 mg Q2H PRN IV FOR NON CARDIAC PAIN (4-10); Start 02/21/17 at 08:30 Al Hydrox/Mg Hydrox/Simethicone (Mag-Al Plus) 30 ml Q4H PRN PO GASTROINTESTINAL UPSET; Start 02/21/17 at 08:30 Ondansetron HCl 4 mg 4 mg Q4H PRN IV NAUSEA AND/OR VOMITING; Start 02/21/17 at 08:30 Cefazolin Sodium (Ancef 1 Gm/50 ml (Pmx)) 50 ml @ 100 mls/hr Q8 IVPB Last administered on 02/27/17 06:07; Admin Dose 100 MLS/HR; Start 02/21/17 at 09: 00 Miscellaneous Information (* Miscellaneous Pharmacy Order) DC all Lovenox, Hepari... ONCE XX ; Start 02/21/17 at 08:30 Phenol (Cepastat Lozenge) 1 lozenge Q4 PRN MT sore throat Last administered on 02/23/17 11:21; Admin Dose 1 LOZENGE; Start 02/22/17 at 14:30 Lisinopril (Zestril) 2.5 mg DAILY PO Last administered on 02/27/17 08:46; Admin Dose 2.5 MG; Start 02/24/17 at 09:00 GARY CROSS MD Feb 27, 2017 12:23
--- NOTE | 2017-02-27 12:35 | CONS ---
Date/Time of Note Date/Time of Note DATE: 02/27/17 TIME: 12:33 Assessment/Plan Assessment/Plan Additional Assessment/Plan Assessment recommendations; 1. Patient admitted for recurrent pleural effusion on the left side due to metastatic breast cancer. Status post Pleurx catheter placement. 2. Dysphagia. Patient possibly will need to have a PEG tube placed. Continue current supportive care. Consultation Date/Type/Reason Admit Date/Time Feb 12, 2017 at 09:06 Type of Consultation: Pulmonary Referring Provider: GARY CROSS MD 24 HR Interval Summary Free Text/Dictation Patient's condition is stable. Remains awake and alert. Denies any shortness of breath. Next General exam; elderly woman, awake, currently no distress. Exam/Review of Systems Vital Signs Vitals Vital Signs Date Time Temp Pulse Resp B/P Pulse Ox O2 Delivery O2 Flow Rate FiO2 02/27/17 09:00 Nasal Cannula 3.0 02/27/17 07:56 97.6 110 20 128/60 98 02/24/17 07:41 28 Intake and Output 02/26/17 02/26/17 02/27/17 15:00 23:00 07:00 Intake Total 1320 ml 450 ml Balance 1320 ml 450 ml Exam HEENT exam; supple neck, no JVD. No lymphadenopathy. Midline trachea. No thyromegaly. Patient does have multiple carious teeth. Chest exam; diminished breath sounds at lung bases bilaterally. Left Pleurx catheter in place. S1-S2 audible, no murmurs. Regular rhythm. Abdomen exam; soft, nontender. No organomegaly. Bowel sounds audible. Extremity exam; no peripheral edema. TECHNICAL INFORMATION SPECIALIST exam; no focal deficit. Results Result Diagram: 02/27/17 0437 02/27/17 0437 Results 24 hrs Laboratory Tests Test 02/27/17 04:37 White Blood Count 7.3 Red Blood Count 3.05 L Hemoglobin 9.6 L Hematocrit 29.5 L Mean Corpuscular Volume 96.7 Mean Corpuscular Hemoglobin 31.5 Mean Corpuscular Hemoglobin Concent 32.5 Red Cell Distribution Width 14.3 Platelet Count 395 Mean Platelet Volume 11.0 H Neutrophils % 71.1 Lymphocytes % 6.9 L Monocytes % 13.2 H Eosinophils % 5.4 Basophils % 1.2 Nucleated Red Blood Cells % 0.0 Neutrophils # 5.2 Lymphocytes # 0.5 L Monocytes # 1.0 H Eosinophils # 0.4 Basophils # 0.1 Nucleated Red Blood Cells # 0.0 Sodium Level 137 Potassium Level 4.4 Chloride Level 105 Carbon Dioxide Level 26 Anion Gap 10 Blood Urea Nitrogen 8 Creatinine 0.82 Glucose Level 108 Calcium Level 8.3 L Phosphorus Level 2.6 Magnesium Level 2.3 Medications Medications Current Medications Acetaminophen (Tylenol Tab) 650 mg Q6H PRN PO PAIN LEVEL 1-3 OR FEVER Last administered on 02/18/17 20:47; Admin Dose 650 MG; Start 02/12/17 at 14:00 Oxycodone/ Acetaminophen (Percocet (5/ 325)) 1 tab Q6H PRN PO SEVERE PAIN LEVEL 7-10 Last administered on 02/20/17 11:59; Admin Dose 1 TAB; Start 02/12 at 14:00 Bisacodyl (Dulcolax) 5 mg DAILY PRN PO CONSTIPATION; Start 02/12/17 at 14:00 Pantoprazole (Protonix Tab) 40 mg DAILY@06 PO Last administered on 02/27/17 06:07; Admin Dose 40 MG; Start 02/13/17 at 06:00 Aspirin (Halfprin) 81 mg DAILY PO Last administered on 02/27/17 08:45; Admin Dose 81 MG; Start 02/13/17 at 09:00 Atorvastatin Calcium (Lipitor) 20 mg HS PO Last administered on 02/26/17 21: 41; Admin Dose 20 MG; Start 02/12/17 at 21:00 Guaifenesin/ Dextromethorphan (Robitussin Dm Liquid Cup) 5 ml Q4H PRN PO cough Last administered on 02/26/17 15:18; Admin Dose 5 ML; Start 02/15/17 at 20:00 IV Flush (NS 10 ml) 10 ml PRN PRN IV IV PROTOCOL; Start 02/16/17 at 13:00 Carvedilol (Coreg) 3.125 mg BID PO Last administered on 02/27/17 08:45; Admin Dose 3.125 MG; Start 02/17/17 at 21:00 Cephalexin (Keflex) 500 mg BID PO Last administered on 02/20/17 21:19; Admin Dose 500 MG; Start 02/19/17 at 09:00; Status Future Hold Acetaminophen (Tylenol Tab) 650 mg Q4H PRN PO NON-CARDIAC PAIN LEVEL (1-3); Start 02/21/17 at 08:30 Morphine Sulfate (morphine) 2 mg Q2H PRN IV FOR NON CARDIAC PAIN (4-10); Start 02/21/17 at 08:30 Al Hydrox/Mg Hydrox/Simethicone (Mag-Al Plus) 30 ml Q4H PRN PO GASTROINTESTINAL UPSET; Start 02/21/17 at 08:30 Ondansetron HCl 4 mg 4 mg Q4H PRN IV NAUSEA AND/OR VOMITING; Start 02/21/17 at 08:30 Cefazolin Sodium (Ancef 1 Gm/50 ml (Pmx)) 50 ml @ 100 mls/hr Q8 IVPB Last administered on 02/27/17 06:07; Admin Dose 100 MLS/HR; Start 02/21/17 at 09: 00 Miscellaneous Information (* Miscellaneous Pharmacy Order) DC all Lovenox, Hepari... ONCE XX ; Start 02/21/17 at 08:30 Phenol (Cepastat Lozenge) 1 lozenge Q4 PRN MT sore throat Last administered on 02/23/17 11:21; Admin Dose 1 LOZENGE; Start 02/22/17 at 14:30 Lisinopril (Zestril) 2.5 mg DAILY PO Last administered on 02/27/17 08:46; Admin Dose 2.5 MG; Start 02/24/17 at 09:00 DAGOBERTO CAO Feb 27, 2017 12:35
--- NOTE | 2017-02-27 12:43 | CONS ---
Date/Time of Note Date/Time of Note DATE: 02/27/17 TIME: 12:40 Assessment/Plan Assessment/Plan Chief Complaint/Hosp Course IMP: 1.CHF-systolic acute on chronic 2. cardiomyopathy 3.ICD near EOL now POD#2 s/p generator change 4.Pleural effusion 5.Leukopenia 6.Met Breast CA 7. Hyponatremia-resolved 8. Renal failure 9. Hypotension-improved off pressors and tolerating anti-hypretenives 10.R pleural effusion s/p PLeur-x catheter placement 11. Dysphagia Recc: -Now on med-surg -Follow volume status closely and drain pleur-x catheter as necessary -Continue coreg /ACEI with slight increaset o coreg topmimprove HR control -Continue statin/ASA -Continue abx prophylaxis Problems: Consultation Date/Type/Reason Admit Date/Time Feb 12, 2017 at 09:06 Initial Consult Date 02/12/2017 Type of Consultation: cardiology Reason for Consultation cardiomyopathy Referring Provider: GARY CROSS MD Exam/Review of Systems Vital Signs Vitals Vital Signs Date Time Temp Pulse Resp B/P Pulse Ox O2 Delivery O2 Flow Rate FiO2 02/27/17 09:00 Nasal Cannula 3.0 02/27/17 07:56 97.6 110 20 128/60 98 02/24/17 07:41 28 Intake and Output 02/26/17 02/26/17 02/27/17 15:00 23:00 07:00 Intake Total 1320 ml 450 ml Balance 1320 ml 450 ml Exam Review of Systems: CONSTITUTIONAL: No fevers, chills. PULMONARY: No sob CARDIOVASCULAR: No chest pain/palpitations GASTROINTESTINAL: No nausea/vomiting. GENITOURINARY: No hematuria/dysuria. MUSCULOSKELETAL: No myagias/arthalgias. PSYCHIATRIC: The patient denies depression. NEUROLOGIC: No weakness Constitutional: alert, oriented Psych: no complaints Head: normocephalic ENMT: mucosa pink and moist Neck: jvd (9 cm water), supple Respiratory: diminished breath sounds (R>L) Cardiovascular: other (pacer site covered by dressing with dried blood), regular rate and rhythm Gastrointestinal: soft Musculoskeletal: muscle weakness (mild generalized) Extremities: edema (none) Neurological: other (No focal deficits) Results Result Diagram: 02/27/17 0437 02/27/17 0437 Results 24 hrs Laboratory Tests Test 02/27/17 04:37 White Blood Count 7.3 Red Blood Count 3.05 L Hemoglobin 9.6 L Hematocrit 29.5 L Mean Corpuscular Volume 96.7 Mean Corpuscular Hemoglobin 31.5 Mean Corpuscular Hemoglobin Concent 32.5 Red Cell Distribution Width 14.3 Platelet Count 395 Mean Platelet Volume 11.0 H Neutrophils % 71.1 Lymphocytes % 6.9 L Monocytes % 13.2 H Eosinophils % 5.4 Basophils % 1.2 Nucleated Red Blood Cells % 0.0 Neutrophils # 5.2 Lymphocytes # 0.5 L Monocytes # 1.0 H Eosinophils # 0.4 Basophils # 0.1 Nucleated Red Blood Cells # 0.0 Sodium Level 137 Potassium Level 4.4 Chloride Level 105 Carbon Dioxide Level 26 Anion Gap 10 Blood Urea Nitrogen 8 Creatinine 0.82 Glucose Level 108 Calcium Level 8.3 L Phosphorus Level 2.6 Magnesium Level 2.3 Medications Medications Current Medications Acetaminophen (Tylenol Tab) 650 mg Q6H PRN PO PAIN LEVEL 1-3 OR FEVER Last administered on 02/18/17 20:47; Admin Dose 650 MG; Start 02/12/17 at 14:00 Oxycodone/ Acetaminophen (Percocet (5/ 325)) 1 tab Q6H PRN PO SEVERE PAIN LEVEL 7-10 Last administered on 02/20/17 11:59; Admin Dose 1 TAB; Start 02/12 at 14:00 Bisacodyl (Dulcolax) 5 mg DAILY PRN PO CONSTIPATION; Start 02/12/17 at 14:00 Pantoprazole (Protonix Tab) 40 mg DAILY@06 PO Last administered on 02/27/17 06:07; Admin Dose 40 MG; Start 02/13/17 at 06:00 Aspirin (Halfprin) 81 mg DAILY PO Last administered on 02/27/17 08:45; Admin Dose 81 MG; Start 02/13/17 at 09:00 Atorvastatin Calcium (Lipitor) 20 mg HS PO Last administered on 02/26/17 21: 41; Admin Dose 20 MG; Start 02/12/17 at 21:00 Guaifenesin/ Dextromethorphan (Robitussin Dm Liquid Cup) 5 ml Q4H PRN PO cough Last administered on 02/26/17 15:18; Admin Dose 5 ML; Start 02/15/17 at 20:00 IV Flush (NS 10 ml) 10 ml PRN PRN IV IV PROTOCOL; Start 02/16/17 at 13:00 Carvedilol (Coreg) 3.125 mg BID PO Last administered on 02/27/17 08:45; Admin Dose 3.125 MG; Start 02/17/17 at 21:00 Cephalexin (Keflex) 500 mg BID PO Last administered on 02/20/17 21:19; Admin Dose 500 MG; Start 02/19/17 at 09:00; Status Future Hold Acetaminophen (Tylenol Tab) 650 mg Q4H PRN PO NON-CARDIAC PAIN LEVEL (1-3); Start 02/21/17 at 08:30 Morphine Sulfate (morphine) 2 mg Q2H PRN IV FOR NON CARDIAC PAIN (4-10); Start 02/21/17 at 08:30 Al Hydrox/Mg Hydrox/Simethicone (Mag-Al Plus) 30 ml Q4H PRN PO GASTROINTESTINAL UPSET; Start 02/21/17 at 08:30 Ondansetron HCl 4 mg 4 mg Q4H PRN IV NAUSEA AND/OR VOMITING; Start 02/21/17 at 08:30 Cefazolin Sodium (Ancef 1 Gm/50 ml (Pmx)) 50 ml @ 100 mls/hr Q8 IVPB Last administered on 02/27/17 06:07; Admin Dose 100 MLS/HR; Start 02/21/17 at 09: 00 Miscellaneous Information (* Miscellaneous Pharmacy Order) DC all Lovenox, Hepari... ONCE XX ; Start 02/21/17 at 08:30 Phenol (Cepastat Lozenge) 1 lozenge Q4 PRN MT sore throat Last administered on 02/23/17 11:21; Admin Dose 1 LOZENGE; Start 02/22/17 at 14:30 Lisinopril (Zestril) 2.5 mg DAILY PO Last administered on 02/27/17 08:46; Admin Dose 2.5 MG; Start 02/24/17 at 09:00 ROXIE VELARDE Feb 27, 2017 12:43
[2017-02-27] MEDS ORDERED: PROPOFOL 40 ML ONE (16:43)
--- NOTE | 2017-02-27 17:17 | OPPN ---
Date/Time of Note Date/Time of Note DATE: 02/27/17 TIME: 17:07 Proc Note GI Procedure Date 02/27/17 Indication: other (Dysphagia) Pre-procedure Diagnosis Dysphagia Post-procedure Diagnosis Impression: Food impaction in mid-esophagus. Removed Narrowing the midesophagus which appears to be extrinsic. Post balloon dilatation to 18 mm. Moderate distal esophagitis. Otherwise normal EGD. Plan: Mechanical soft diet Trial of Reglan 10 mg 3 times daily to improve esophageal motility Encourage flushing with water after a few bites to prevent impaction . Procedure Performed: Endoscopy (With foreign body removal. EGD with balloon dilatation of the esophagus) Surgeon OXANA PARIS MD See signature line Mechanical Project Engineer none Anesthesia Type: MAC Anesthesiologist: SHERRI ALMANZAR Tourniquet Time none EBL none Transfusion required none Biopsy 1: None Grafts/Implants none Tubes/Drains none Complication(s) none Disposition: PACU Procedure Description Preoperative Diagnosis: After informed consent, with the patient/relatives understanding the procedure, its indications, potential risks and complications, including but not limited to : allergic reaction, bleeding, perforation or infection, and after all pertinent questions were answered to the patients satisfaction, the patient/ relatives signed witnessed informed consent. Following this, premedication was administered slowly IV push under careful cardiovascular and respiratory monitoring with pulse oximetry, automatic blood pressure, and extruding press adjuster. Once the sedative effect was achieved the patient was place in the left lateral decubitus, the panendoscope was introduced and advanced under visual control. Careful examination of the upper gastrointestinal tract, both on insertion as well as withdrawal of the instrument disclosing the following findings: ESOPHAGUS: the mucosa of the entire esophagus was carefully examined and showed the following findings: There is a 4 impaction in the proximal to mid esophagus. It was easily pushed down. The area shows narrowing which appears to be extrinsic the mucosa is otherwise unremarkable. Upon completion of examination a balloon dilator measuring 15-18 mm was utilized and we dilated up to 18 mm without difficulty. There appeared to be in improvement in the luminal size postdilatation. There is moderate erythema and edema of the mucosa at the e.g. junction. Otherwise the mucosa appears within normal limits. There is no evidence of varices, neoplasm. Small Hiatal Hernia identified. STOMACH: Upon entrance to the stomach air was insufflated, the gastric unger distended normally. The mucosa of the fundus, body and antrum of the stomach was carefully examined both head-on and on retroflexion, and showed the following findings: the mucosa appears within normal limits with no abnormalities. There is no evidence of gastritis, ulcers or neoplasm. PYLORUS: The pylorus was carefully examined and showed the following findings: the pylorus appears patent and within normal limits, with no evidence of gastric outlet obstruction. DUODENUM: The duodenal mucosa was carefully examined in the duodenal bulb as well as the second portion of the duodenum and showed the following findings: the mucosa appears unremarkable with no evidence of duodenitis, ulcer or neoplasm. Copies To: CC: OXANA PARIS MD, MORDO MD Feb 27, 2017 17:17
[2017-02-27] MEDS: ATORVASTATIN 20 MG TAB PO SCH (20:47)
[2017-02-27] MEDS: ONDANSETRON 4 MG INJ IV PRN (20:52)
[2017-02-28 01:36] VITALS: BP 90/54; RESP 18
[2017-02-28] MEDS: CEFAZOLIN 1 GM/50 ML (PMX) 50 ML IVPB SCH (05:10)
[2017-02-28] MEDS: PANTOPRAZOLE (EC) 40 MG TAB PO SCH (05:10)
[2017-02-28] MEDS: ALBUTEROL/IPRATROPIUM (NEB) 3 ML AMP HHN SCH ×3 (08:04→19:28)
[2017-02-28 08:14] VITALS: BP 114/59; RESP 18
[2017-02-28] MEDS: LISINOPRIL 5 MG TAB PO SCH (08:29)
[2017-02-28] MEDS: ASPIRIN (EC) 81 MG TAB PO SCH (08:29)
--- NOTE | 2017-02-28 09:37 | PN ---
Date/Time of Note Date/Time of Note DATE: 02/28/17 TIME: 09:33 Assessment/Plan VTE Prophylaxis VTE Prophylaxis Intervention: SCD's Lines/Catheters IV Catheter Type (from Nrs): Mid Line Urinary Cath still in place: Yes Reason Cath still needed: other (indicate) (monitor output) Assessment/Plan Chief Complaint/Hosp Course Summary Assessment and Plan: Assessment: Dysphagia EGD 02/27 Impression: Food impaction in mid-esophagus. Removed Narrowing the midesophagus which appears to be extrinsic. Post balloon dilatation to 18 mm. Moderate distal esophagitis. Otherwise normal EGD. Bilateral pleural effusions, likely malignant Pulmonary edema Leukopenia Metastatic breast cancer to bone and pelvis Anemia of chronic disease Acute kidney injury Cardiomyopathy, congestive heart failure, acute on chronic ejection fraction 45% , Plan: S/p EGD with dilatation Encouraged to drink water after a few bites of food Continue to monitor for dysphasia and possible need of PEG and future Patient seen in collaboration with Subjective: Course reviewed with nursing staff Patient interviewed and examined All labs, imaging and other results reviewed Patient doing moderately well, eating breakfast at this time tolerating fair Encouraged to drink water after few bites of food. She denies any pain at this time PHYSICAL EXAMINATION: GENERAL: Frail, alert and oriented 3, no distress SKIN: No lesions, no stigmata chronic liver disease, no evidence of bleeding diathesis LYMPHATIC: No palpable lymphadenopathy. HEAD: Normocephalic, atraumatic, no tenderness. EYES: Pupils equal reactive to light and accommodation, full extraocular movements, sclera clear, non-icteric, no discharge. EARS/NOSE AND THROAT: Ears normal, nose normal, oropharynx normal NECK: Supple, no masses, thyroid normal, JVP within normal limits, carotids normal without bruits. CHEST: pleurx cath drain CARDIOVASCULAR: Heart: Regular rate and rhythm, no murmurs, gallops or rubs. Peripheral pulses present within normal limits, no cyanosis, clubbing or edemas. No pulsatile abdominal mass RESPIRATORY: Diminished, GASTROINTESTINAL AND LIVER: Abdomen: Soft, non tenderness, non-distended, no hernias, no masses, no organomegaly, no ascites, no guarding, no rebound tenderness, normoactive bowel sounds. Rectal: Deferred. GENITOURINARY:Female genitalia within normal limits. EXTREMITIES: No cyanosis, clubbing or edema. Problems: Exam/Review of Systems Vital Signs Vitals Vital Signs Date Time Temp Pulse Resp B/P Pulse Ox O2 Delivery O2 Flow Rate FiO2 02/28/17 08:59 Nasal Cannula 3.0 02/28/17 08:14 97.8 99 18 114/59 96 02/24/17 07:41 28 Intake and Output 02/27/17 02/27/17 02/28/17 15:00 23:00 07:00 Intake Total 100 ml 120 ml 900 ml Output Total 1000 ml Balance 100 ml -880 ml 900 ml Results Result Diagram: 02/28/17 0451 02/28/17 0451 Results 24 hrs Laboratory Tests Test 02/28/17 04:51 White Blood Count 6.4 Red Blood Count 2.84 L Hemoglobin 9.1 L Hematocrit 27.7 L Mean Corpuscular Volume 97.5 Mean Corpuscular Hemoglobin 32.0 Mean Corpuscular Hemoglobin Concent 32.9 Red Cell Distribution Width 14.4 Platelet Count 374 Mean Platelet Volume 10.9 H Neutrophils % 71.7 Lymphocytes % 5.2 L Monocytes % 12.6 H Eosinophils % 7.1 H Basophils % 0.9 Nucleated Red Blood Cells % 0.0 Neutrophils # 4.6 Lymphocytes # 0.3 L Monocytes # 0.8 Eosinophils # 0.5 Basophils # 0.1 Nucleated Red Blood Cells # 0.0 Sodium Level 135 Potassium Level 4.3 Chloride Level 102 Carbon Dioxide Level 26 Anion Gap 11 Blood Urea Nitrogen 11 Creatinine 0.87 Glucose Level 107 Calcium Level 8.1 L Phosphorus Level 3.1 Magnesium Level 1.9 Albumin 2.6 L Medications Medications Current Medications Acetaminophen (Tylenol Tab) 650 mg Q6H PRN PO PAIN LEVEL 1-3 OR FEVER Last administered on 02/18/17 20:47; Admin Dose 650 MG; Start 02/12/17 at 14:00 Oxycodone/ Acetaminophen (Percocet (5/ 325)) 1 tab Q6H PRN PO SEVERE PAIN LEVEL 7-10 Last administered on 02/20/17 11:59; Admin Dose 1 TAB; Start 02/12 at 14:00 Bisacodyl (Dulcolax) 5 mg DAILY PRN PO CONSTIPATION; Start 02/12/17 at 14:00 Pantoprazole (Protonix Tab) 40 mg DAILY@06 PO Last administered on 02/28/17 05:10; Admin Dose 40 MG; Start 02/13/17 at 06:00 Aspirin (Halfprin) 81 mg DAILY PO Last administered on 02/28/17 08:29; Admin Dose 81 MG; Start 02/13/17 at 09:00 Atorvastatin Calcium (Lipitor) 20 mg HS PO Last administered on 02/27/17 20: 47; Admin Dose 20 MG; Start 02/12/17 at 21:00 Guaifenesin/ Dextromethorphan (Robitussin Dm Liquid Cup) 5 ml Q4H PRN PO cough Last administered on 02/26/17 15:18; Admin Dose 5 ML; Start 02/15/17 at 20:00 IV Flush (NS 10 ml) 10 ml PRN PRN IV IV PROTOCOL; Start 02/16/17 at 13:00 Cephalexin (Keflex) 500 mg BID PO Last administered on 02/20/17 21:19; Admin Dose 500 MG; Start 02/19/17 at 09:00; Status Future Hold Acetaminophen (Tylenol Tab) 650 mg Q4H PRN PO NON-CARDIAC PAIN LEVEL (1-3); Start 02/21/17 at 08:30 Morphine Sulfate (morphine) 2 mg Q2H PRN IV FOR NON CARDIAC PAIN (4-10); Start 02/21/17 at 08:30 Al Hydrox/Mg Hydrox/Simethicone (Mag-Al Plus) 30 ml Q4H PRN PO GASTROINTESTINAL UPSET; Start 02/21/17 at 08:30 Ondansetron HCl 4 mg 4 mg Q4H PRN IV NAUSEA AND/OR VOMITING Last administered on 02/27/17 20:52; Admin Dose 4 MG; Start 02/21/17 at 08:30 Cefazolin Sodium (Ancef 1 Gm/50 ml (Pmx)) 50 ml @ 100 mls/hr Q8 IVPB Last administered on 02/28/17 05:10; Admin Dose 100 MLS/HR; Start 02/21/17 at 09: 00 Miscellaneous Information (* Miscellaneous Pharmacy Order) DC all Lovenox, Hepari... ONCE XX ; Start 02/21/17 at 08:30 Phenol (Cepastat Lozenge) 1 lozenge Q4 PRN MT sore throat Last administered on 02/23/17 11:21; Admin Dose 1 LOZENGE; Start 02/22/17 at 14:30 Lisinopril (Zestril) 2.5 mg DAILY PO Last administered on 02/28/17 08:29; Admin Dose 2.5 MG; Start 02/24/17 at 09:00 Carvedilol (Coreg) 6.25 mg BID PO Last administered on 02/28/17 08:30; Admin Dose 6.25 MG; Start 02/27/17 at 21:00 DINA SORIANO Feb 28, 2017 09:37
[2017-02-28] MEDS: ONDANSETRON 4 MG INJ IV PRN (11:26)
[2017-02-28 14:33] VITALS: BP 110/58; RESP 18
--- NOTE | 2017-02-28 15:02 | PN ---
Date/Time of Note Date/Time of Note DATE: 02/28/17 TIME: 14:58 Assessment/Plan VTE Prophylaxis VTE Prophylaxis Intervention: other Lines/Catheters IV Catheter Type (from Nrs): Mid Line Urinary Cath still in place: No Assessment/Plan Assessment/Plan 1. Dysphagia - GI on board and recommendations appreciated. Patient is s/p EGD with dilation. Will advance diet as tolerated - Swallow study noted, no significant issues - Still refusing PEG placement at this time but may need to be addressed in the future 2. Bilateral pleural effusions, likely malignant - Pulmonology on board. pleurx cath drain Q3days, 500cc each side, 1000cc max when drained - Continue on NC and wean as tolerating to keep saturations >90% 3. Tachycardia - Cardiology on board and consultation appreciated - Coreg increased yesterday for better HR control. Will continue monitoring and adjust as needed 4. Hypotension- resolved - will continue to monitor 5. Leukopenia-stable 6. Cardiomyopathy, congestive heart failure, acute on chronic ejection fraction 45% - Cardiology on board and recommendations appreciated. - Continue statin and aspirin and coreg - ICD battery change done 7. 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 Tay, oncology, outpatient. - Palliative on board and appreciated consultation. Son requesting that Dr. Anderson not seek out family. They will ask for his assistance as needed. Dr. Anderson made aware 8. Anemia of chronic disease - currently stable - will continue monitoring 9. Acute kidney injury, resolved - Nephrology consultation appreciated. improvement in renal function and signed off case. Will reconsult if any issues 10. Disposition - Once tolerating PO diet, will d/c - need services for pleurx drainage Subjective 24 Hr Interval Summary Free Text/Dictation Patient seen this am and states was experiencing vomiting after eating but has since resolved. Denies any respiratory issues. No overnight events. PICC is not getting blood return and instructed nurse to place peripherally IV if possible and will d/c PICC line Exam/Review of Systems Vital Signs Vitals Vital Signs Date Time Temp Pulse Resp B/P Pulse Ox O2 Delivery O2 Flow Rate FiO2 02/28/17 14:33 98.0 96 18 110/58 94 02/28/17 14:20 Nasal Cannula 2.0 02/24/17 07:41 28 Intake and Output 02/27/17 02/27/17 02/28/17 15:00 23:00 07:00 Intake Total 100 ml 120 ml 900 ml Output Total 1000 ml Balance 100 ml -880 ml 900 ml Exam General: Patient is in NAD. awake and alert Head: Normocephalic atraumatic Eyes: EOMI, pupils reactive to light Neck: Supple, nontender, midline Respiratory: Clear to auscultation bilaterally Cardiovascular: regular rate, no obvious murmurs Gastrointestinal: soft, nondistended, non-tender to palpation, bowel sounds heard. Neurological: Moves all extremities spontaneously Skin: pleurex cath sites CDI bilaterally Results Result Diagram: 02/28/17 0451 02/28/17 0451 Results 24 hrs Laboratory Tests Test 02/28/17 04:51 White Blood Count 6.4 Red Blood Count 2.84 L Hemoglobin 9.1 L Hematocrit 27.7 L Mean Corpuscular Volume 97.5 Mean Corpuscular Hemoglobin 32.0 Mean Corpuscular Hemoglobin Concent 32.9 Red Cell Distribution Width 14.4 Platelet Count 374 Mean Platelet Volume 10.9 H Neutrophils % 71.7 Lymphocytes % 5.2 L Monocytes % 12.6 H Eosinophils % 7.1 H Basophils % 0.9 Nucleated Red Blood Cells % 0.0 Neutrophils # 4.6 Lymphocytes # 0.3 L Monocytes # 0.8 Eosinophils # 0.5 Basophils # 0.1 Nucleated Red Blood Cells # 0.0 Sodium Level 135 Potassium Level 4.3 Chloride Level 102 Carbon Dioxide Level 26 Anion Gap 11 Blood Urea Nitrogen 11 Creatinine 0.87 Glucose Level 107 Calcium Level 8.1 L Phosphorus Level 3.1 Magnesium Level 1.9 Albumin 2.6 L Medications Medications Current Medications Acetaminophen (Tylenol Tab) 650 mg Q6H PRN PO PAIN LEVEL 1-3 OR FEVER Last administered on 02/18/17 20:47; Admin Dose 650 MG; Start 02/12/17 at 14:00 Oxycodone/ Acetaminophen (Percocet (5/ 325)) 1 tab Q6H PRN PO SEVERE PAIN LEVEL 7-10 Last administered on 02/20/17 11:59; Admin Dose 1 TAB; Start 02/12 at 14:00 Bisacodyl (Dulcolax) 5 mg DAILY PRN PO CONSTIPATION; Start 02/12/17 at 14:00 Pantoprazole (Protonix Tab) 40 mg DAILY@06 PO Last administered on 02/28/17 05:10; Admin Dose 40 MG; Start 02/13/17 at 06:00 Aspirin (Halfprin) 81 mg DAILY PO Last administered on 02/28/17 08:29; Admin Dose 81 MG; Start 02/13/17 at 09:00 Atorvastatin Calcium (Lipitor) 20 mg HS PO Last administered on 02/27/17 20: 47; Admin Dose 20 MG; Start 02/12/17 at 21:00 Guaifenesin/ Dextromethorphan (Robitussin Dm Liquid Cup) 5 ml Q4H PRN PO cough Last administered on 02/26/17 15:18; Admin Dose 5 ML; Start 02/15/17 at 20:00 IV Flush (NS 10 ml) 10 ml PRN PRN IV IV PROTOCOL; Start 02/16/17 at 13:00 Cephalexin (Keflex) 500 mg BID PO Last administered on 02/20/17 21:19; Admin Dose 500 MG; Start 02/19/17 at 09:00; Status Future Hold Acetaminophen (Tylenol Tab) 650 mg Q4H PRN PO NON-CARDIAC PAIN LEVEL (1-3); Start 02/21/17 at 08:30 Morphine Sulfate (morphine) 2 mg Q2H PRN IV FOR NON CARDIAC PAIN (4-10); Start 02/21/17 at 08:30 Al Hydrox/Mg Hydrox/Simethicone (Mag-Al Plus) 30 ml Q4H PRN PO GASTROINTESTINAL UPSET; Start 02/21/17 at 08:30 Ondansetron HCl (Zofran Inj) 4 mg Q4H PRN IV NAUSEA AND/OR VOMITING Last administered on 02/28/17 11:26; Admin Dose 4 MG; Start 02/21/17 at 08:30 Miscellaneous Information (* Miscellaneous Pharmacy Order) DC all Lovenox, Hepari... ONCE XX ; Start 02/21/17 at 08:30 Phenol (Cepastat Lozenge) 1 lozenge Q4 PRN MT sore throat Last administered on 02/23/17 11:21; Admin Dose 1 LOZENGE; Start 02/22/17 at 14:30 Lisinopril (Zestril) 2.5 mg DAILY PO Last administered on 02/28/17 08:29; Admin Dose 2.5 MG; Start 02/24/17 at 09:00 Carvedilol (Coreg) 6.25 mg BID PO Last administered on 02/28/17 08:30; Admin Dose 6.25 MG; Start 02/27/17 at 21:00 GARY CROSS MD Feb 28, 2017 15:02
--- NOTE | 2017-02-28 16:16 | CONS ---
Date/Time of Note Date/Time of Note DATE: 02/28/17 TIME: 16:14 Assessment/Plan Assessment/Plan Additional Assessment/Plan 1.CHF-systolic acute on chronic - much better now, will monitor clinically 2. cardiomyopathy - much better with BiV pacing 3.ICD near EOL now s/p generator change - site look swell. 4.Pleural effusion- post Rx, better fluid status 5.Leukopenia 6.Met Breast CA - on Rx, outpt chemo planned 7. Hyponatremia-resolved 8. Renal failure 9. Hypotension-improved off pressors and tolerating anti-hypretenives 10.R pleural effusion s/p PLeur-x catheter placement 11. Dysphagia Consultation Date/Type/Reason Admit Date/Time Feb 12, 2017 at 09:06 Type of Consultation: cardiology Referring Provider: GARY CROSS MD 24 HR Interval Summary Free Text/Dictation NO acute events - BP in good range - no CP now - will monitor clinically ICD site looks well. ROS: No fever, no chills, no nausea, no vomiting, no diarrhea/constipation No recent weight changes No chest pain, no PND, no orthopnea No dizziness, blurred vision No thirst, no heat or cold intolerance Exam/Review of Systems Vital Signs Vitals Vital Signs Date Time Temp Pulse Resp B/P Pulse Ox O2 Delivery O2 Flow Rate FiO2 02/28/17 14:33 98.0 96 18 110/58 94 02/28/17 14:20 Nasal Cannula 2.0 02/24/17 07:41 28 Intake and Output 02/27/17 02/27/17 02/28/17 15:00 23:00 07:00 Intake Total 100 ml 120 ml 900 ml Output Total 1000 ml Balance 100 ml -880 ml 900 ml Exam General: WN/WD/NAD, AOx 3 HEENT: Unicetric/atraumatic/EOMI (follow commands) NECK: JVD elevated, no thyromegaly Lymph: no lymphadenopathy HEART: regular with no S3, II/ systolic murmur at apex, ICD in place - site looks well. LUNGS: Coarse sounds ABD: soft, NT, ND, +BS : Intact Neuro: non focal SKIN: chronic changes EXT: trace edema Results Result Diagram: 02/28/17 0451 02/28/17 0451 Results 24 hrs Laboratory Tests Test 02/28/17 04:51 White Blood Count 6.4 Red Blood Count 2.84 L Hemoglobin 9.1 L Hematocrit 27.7 L Mean Corpuscular Volume 97.5 Mean Corpuscular Hemoglobin 32.0 Mean Corpuscular Hemoglobin Concent 32.9 Red Cell Distribution Width 14.4 Platelet Count 374 Mean Platelet Volume 10.9 H Neutrophils % 71.7 Lymphocytes % 5.2 L Monocytes % 12.6 H Eosinophils % 7.1 H Basophils % 0.9 Nucleated Red Blood Cells % 0.0 Neutrophils # 4.6 Lymphocytes # 0.3 L Monocytes # 0.8 Eosinophils # 0.5 Basophils # 0.1 Nucleated Red Blood Cells # 0.0 Sodium Level 135 Potassium Level 4.3 Chloride Level 102 Carbon Dioxide Level 26 Anion Gap 11 Blood Urea Nitrogen 11 Creatinine 0.87 Glucose Level 107 Calcium Level 8.1 L Phosphorus Level 3.1 Magnesium Level 1.9 Albumin 2.6 L Medications Medications Current Medications Acetaminophen (Tylenol Tab) 650 mg Q6H PRN PO PAIN LEVEL 1-3 OR FEVER Last administered on 02/18/17 20:47; Admin Dose 650 MG; Start 02/12/17 at 14:00 Oxycodone/ Acetaminophen (Percocet (5/ 325)) 1 tab Q6H PRN PO SEVERE PAIN LEVEL 7-10 Last administered on 02/20/17 11:59; Admin Dose 1 TAB; Start 02/12 at 14:00 Bisacodyl (Dulcolax) 5 mg DAILY PRN PO CONSTIPATION; Start 02/12/17 at 14:00 Pantoprazole (Protonix Tab) 40 mg DAILY@06 PO Last administered on 02/28/17 05:10; Admin Dose 40 MG; Start 02/13/17 at 06:00 Aspirin (Halfprin) 81 mg DAILY PO Last administered on 02/28/17 08:29; Admin Dose 81 MG; Start 02/13/17 at 09:00 Atorvastatin Calcium (Lipitor) 20 mg HS PO Last administered on 02/27/17 20: 47; Admin Dose 20 MG; Start 02/12/17 at 21:00 Guaifenesin/ Dextromethorphan (Robitussin Dm Liquid Cup) 5 ml Q4H PRN PO cough Last administered on 02/26/17 15:18; Admin Dose 5 ML; Start 02/15/17 at 20:00 IV Flush (NS 10 ml) 10 ml PRN PRN IV IV PROTOCOL; Start 02/16/17 at 13:00 Cephalexin (Keflex) 500 mg BID PO Last administered on 02/20/17 21:19; Admin Dose 500 MG; Start 02/19/17 at 09:00; Status Future Hold Acetaminophen (Tylenol Tab) 650 mg Q4H PRN PO NON-CARDIAC PAIN LEVEL (1-3); Start 02/21/17 at 08:30 Morphine Sulfate (morphine) 2 mg Q2H PRN IV FOR NON CARDIAC PAIN (4-10); Start 02/21/17 at 08:30 Al Hydrox/Mg Hydrox/Simethicone (Mag-Al Plus) 30 ml Q4H PRN PO GASTROINTESTINAL UPSET; Start 02/21/17 at 08:30 Ondansetron HCl (Zofran Inj) 4 mg Q4H PRN IV NAUSEA AND/OR VOMITING Last administered on 02/28/17 11:26; Admin Dose 4 MG; Start 02/21/17 at 08:30 Miscellaneous Information (* Miscellaneous Pharmacy Order) DC all Lovenox, Hepari... ONCE XX ; Start 02/21/17 at 08:30 Phenol (Cepastat Lozenge) 1 lozenge Q4 PRN MT sore throat Last administered on 02/23/17 11:21; Admin Dose 1 LOZENGE; Start 02/22/17 at 14:30 Lisinopril (Zestril) 2.5 mg DAILY PO Last administered on 02/28/17 08:29; Admin Dose 2.5 MG; Start 02/24/17 at 09:00 Carvedilol (Coreg) 6.25 mg BID PO Last administered on 02/28/17 08:30; Admin Dose 6.25 MG; Start 02/27/17 at 21:00 STEFANY BOYCE MD Feb 28, 2017 16:16
[2017-02-28 18:58] VITALS: BP 94/52; RESP 18
[2017-02-28] MEDS: ATORVASTATIN 20 MG TAB PO SCH (20:12)
[2017-03-01 01:33] VITALS: BP 97/50; RESP 18
[2017-03-01] MEDS: PANTOPRAZOLE (EC) 40 MG TAB PO SCH (05:03)
[2017-03-01 08:09] VITALS: BP 101/53; RESP 18
[2017-03-01] MEDS: ALBUTEROL/IPRATROPIUM (NEB) 3 ML AMP HHN SCH ×3 (08:19→20:10)
[2017-03-01] MEDS: ASPIRIN (EC) 81 MG TAB PO SCH (08:59)
[2017-03-01] MEDS: LISINOPRIL 5 MG TAB PO SCH (09:01)
--- NOTE | 2017-03-01 09:17 | PN ---
Date/Time of Note Date/Time of Note DATE: 03/01/17 TIME: 09:16 Assessment/Plan VTE Prophylaxis VTE Prophylaxis Intervention: SCD's Lines/Catheters IV C[facility] Type [facility]from [facility] Mid Line Central line still needed: No Urinary Cath still in place: No Assessment/Plan Chief Complaint/Hosp Course Summary Assessment and Plan: Assessment: Dysphagia EGD 02/27 Impression: Food impaction in mid-esophagus. Removed Narrowing the midesophagus which appears to be extrinsic. Post balloon dilatation to 18 mm. Moderate distal esophagitis. Otherwise normal EGD. Bilateral pleural effusions, likely malignant Pulmonary edema Leukopenia Metastatic breast cancer to bone and pelvis Anemia of chronic disease Acute kidney injury Cardiomyopathy, congestive heart failure, acute on chronic ejection fraction 45% , Plan: On pured diet Encouraged to drink water after a few bites of food Continue to monitor for dysphasia and possible need of PEG in future New antiemetic medication as needed Patient seen in collaboration with Subjective: Course reviewed with nursing staff Patient interviewed and examined All labs, imaging and other results reviewed Patient doing moderately well, tolerating diet fairly Encouraged to drink water after few bites of food. She denies any pain at this time She complains of nausea, utilized antiemetic as needed medication. Patient currently DNR PHYSICAL EXAMINATION: GENERAL: Frail, alert and oriented 3, no distress SKIN: No lesions, no stigmata chronic liver disease, no evidence of bleeding diathesis LYMPHATIC: No palpable lymphadenopathy. HEAD: Normocephalic, atraumatic, no tenderness. EYES: Pupils equal reactive to light and accommodation, full extraocular movements, sclera clear, non-icteric, no discharge. EARS/NOSE AND THROAT: Ears normal, nose normal, oropharynx normal NECK: Supple, no masses, thyroid normal, JVP within normal limits, carotids normal without bruits. CHEST: pleurx cath drain CARDIOVASCULAR: Heart: Regular rate and rhythm, no murmurs, gallops or rubs. Peripheral pulses present within normal limits, no cyanosis, clubbing or edemas. No pulsatile abdominal mass RESPIRATORY: Diminished, GASTROINTESTINAL AND LIVER: Abdomen: Soft, non tenderness, non-distended, no hernias, no masses, no organomegaly, no ascites, no guarding, no rebound tenderness, normoactive bowel sounds. Rectal: Deferred. GENITOURINARY:Female genitalia within normal limits. EXTREMITIES: No cyanosis, clubbing or edema. Problems: Exam/Review of Systems Vital Signs Vitals Vital Signs Date Time Temp Pulse Resp B/P Pulse Ox O2 Delivery O2 Flow Rate FiO2 03/01/17 08:19 102 16 94 Nasal Cannula 2.0 03/01/17 08:09 97.8 101/53 Intake and Output 02/28/17 02/28/17 03/01/17 15:00 23:00 07:00 Intake Total 700 ml 850 ml Balance 700 ml 850 ml Results Result Diagram: 03/01/17 0445 03/01/17 0445 Results 24 hrs Laboratory Tests Test 03/01/17 04:45 White Blood Count 6.8 Red Blood Count 2.80 L Hemoglobin 8.7 L Hematocrit 26.9 L Mean Corpuscular Volume 96.1 Mean Corpuscular Hemoglobin 31.1 Mean Corpuscular Hemoglobin Concent 32.3 Red Cell Distribution Width 14.5 Platelet Count 382 Mean Platelet Volume 10.4 Neutrophils % 70.7 Lymphocytes % 6.2 L Monocytes % 12.8 H Eosinophils % 6.6 Basophils % 1.2 Nucleated Red Blood Cells % 0.0 Neutrophils # 4.8 Lymphocytes # 0.4 L Monocytes # 0.9 Eosinophils # 0.5 Basophils # 0.1 Nucleated Red Blood Cells # 0.0 Sodium Level 136 Potassium Level 4.2 Chloride Level 101 Carbon Dioxide Level 28 Anion Gap 11 Blood Urea Nitrogen 11 Creatinine 0.97 Glucose Level 93 Calcium Level 8.0 L Phosphorus Level 3.0 Magnesium Level 1.9 Albumin 2.6 L Medications Medications Current Medications Acetaminophen (Tylenol Tab) 650 mg Q6H PRN PO PAIN LEVEL 1-3 OR FEVER Last administered on 02/18/17 20:47; Admin Dose 650 MG; Start 02/12/17 at 14:00 Oxycodone/ Acetaminophen (Percocet (5/ 325)) 1 tab Q6H PRN PO SEVERE PAIN LEVEL 7-10 Last administered on 02/20/17 11:59; Admin Dose 1 TAB; Start 02/12 at 14:00 Bisacodyl (Dulcolax) 5 mg DAILY PRN PO CONSTIPATION; Start 02/12/17 at 14:00 Pantoprazole (Protonix Tab) 40 mg DAILY@06 PO Last administered on 03/01/17 05 :03; Admin Dose 40 MG; Start 02/13/17 at 06:00 Aspirin (Halfprin) 81 mg DAILY PO Last administered on 03/01/17 08:59; Admin Dose 81 MG; Start 02/13/17 at 09:00 Atorvastatin Calcium (Lipitor) 20 mg HS PO Last administered on 02/28/17 20: 12; Admin Dose 20 MG; Start 02/12/17 at 21:00 Guaifenesin/ Dextromethorphan (Robitussin Dm Liquid Cup) 5 ml Q4H PRN PO cough Last administered on 02/26/17 15:18; Admin Dose 5 ML; Start 02/15/17 at 20:00 IV Flush (NS 10 ml) 10 ml PRN PRN IV IV PROTOCOL; Start 02/16/17 at 13:00 Cephalexin (Keflex) 500 mg BID PO Last administered on 02/20/17 21:19; Admin Dose 500 MG; Start 02/19/17 at 09:00; Status Future Hold Acetaminophen (Tylenol Tab) 650 mg Q4H PRN PO NON-CARDIAC PAIN LEVEL (1-3); Start 02/21/17 at 08:30 Morphine Sulfate (morphine) 2 mg Q2H PRN IV FOR NON CARDIAC PAIN (4-10); Start 02/21/17 at 08:30 Al Hydrox/Mg Hydrox/Simethicone (Mag-Al Plus) 30 ml Q4H PRN PO GASTROINTESTINAL UPSET; Start 02/21/17 at 08:30 Ondansetron HCl (Zofran Inj) 4 mg Q4H PRN IV NAUSEA AND/OR VOMITING Last administered on 02/28/17 11:26; Admin Dose 4 MG; Start 02/21/17 at 08:30 Miscellaneous Information (* Miscellaneous Pharmacy Order) DC all Lovenox, Hepari... ONCE XX ; Start 02/21/17 at 08:30 Phenol (Cepastat Lozenge) 1 lozenge Q4 PRN MT sore throat Last administered on 02/23/17 11:21; Admin Dose 1 LOZENGE; Start 02/22/17 at 14:30 Lisinopril (Zestril) 2.5 mg DAILY PO Last administered on 03/01/17 09:01; Admin Dose 2.5 MG; Start 02/24/17 at 09:00 Carvedilol (Coreg) 6.25 mg BID PO Last administered on 03/01/17 09:00; Admin Dose 6.25 MG; Start 02/27/17 at 21:00 DINA SORIANO Mar 01, 2017 09:17
--- NOTE | 2017-03-01 11:06 | PN ---
Date/Time of Note Date/Time of Note DATE: 03/01/17 TIME: 11:05 Assessment/Plan VTE Prophylaxis VTE Prophylaxis Intervention: contraindicated Lines/Catheters IV Catheter Type (from Nrs): Mid Line Urinary Cath still in place: No Assessment/Plan Assessment/Plan 1. Dysphagia - GI on board and recommendations appreciated. Patient is s/p EGD with dilation. Tolerating pureed diet - Having dry heaving x1 episode but no vomiting - Swallow study noted, no significant issues - Still refusing PEG placement at this time but may need to be addressed in the future 2. Bilateral pleural effusions, likely malignant - Due for draining tomorrow - Pulmonology on board. pleurx cath drain Q3days, 500cc each side, 1000cc max when drained - Continue on NC and wean as tolerating to keep saturations >90% 3. Swelling LUE - PICC in place and flushing but no blood return - Will order vasc study to rule out DVT 4. Tachycardia - Cardiology on board and consultation appreciated - Coreg increased yesterday for better HR control. Will continue monitoring and adjust as needed 5. Hypotension- resolved - will continue to monitor 6. Leukopenia-resolved 7. Cardiomyopathy, congestive heart failure, acute on chronic ejection fraction 45% - Cardiology on board and recommendations appreciated. - Continue statin and aspirin and coreg - ICD battery change done 8. 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 Tay, oncology, outpatient. - Palliative on board and appreciated consultation. Son requesting that Dr. Anderson not seek out family. They will ask for his assistance as needed. Dr. Anderson made aware 9. Anemia of chronic disease - currently stable - will continue monitoring 10. Acute kidney injury, resolved - Nephrology consultation appreciated. improvement in renal function and signed off case. Will reconsult if any issues 11. Disposition - Awaiting results of LUE duplex. If negative for DVT can d/c home once home health arranged for pleurx drainage Subjective 24 Hr Interval Summary Free Text/Dictation Patient states she still has slight epigastric discomfort and only tolerating pureed diet. She denies any vomiting but has been having dry heaving. Denies any respiratory issues, chest pain, palpitations, or abdominal pain. Due for pleurx draining tmrw Exam/Review of Systems Vital Signs Vitals Vital Signs Date Time Temp Pulse Resp B/P Pulse Ox O2 Delivery O2 Flow Rate FiO2 03/01/17 08:19 102 16 94 Nasal Cannula 2.0 03/01/17 08:09 97.8 101/53 Intake and Output 02/28/17 02/28/17 03/01/17 15:00 23:00 07:00 Intake Total 700 ml 850 ml Balance 700 ml 850 ml Exam General: Patient is in NAD. awake and alert, pale Head: Normocephalic atraumatic Eyes: EOMI, pupils reactive to light Neck: Supple, nontender, midline Respiratory: Clear to auscultation bilaterally, no wheezes, diminished breath sounds Cardiovascular: regular rhythm, slightly tachycardic, no obvious murmurs Gastrointestinal: soft, nondistended, non-tender to palpation, bowel sounds heard. Neurological: Moves all extremities spontaneously, swelling left upper extremity at site of PICC, pulses palpated Skin: pleurex cath sites CDI bilaterally Results Result Diagram: 03/01/17 0445 03/01/175 Results 24 hrs Laboratory Tests Test 03/01/17 04:45 White Blood Count 6.8 Red Blood Count 2.80 L Hemoglobin 8.7 L Hematocrit 26.9 L Mean Corpuscular Volume 96.1 Mean Corpuscular Hemoglobin 31.1 Mean Corpuscular Hemoglobin Concent 32.3 Red Cell Distribution Width 14.5 Platelet Count 382 Mean Platelet Volume 10.4 Neutrophils % 70.7 Lymphocytes % 6.2 L Monocytes % 12.8 H Eosinophils % 6.6 Basophils % 1.2 Nucleated Red Blood Cells % 0.0 Neutrophils # 4.8 Lymphocytes # 0.4 L Monocytes # 0.9 Eosinophils # 0.5 Basophils # 0.1 Nucleated Red Blood Cells # 0.0 Sodium Level 136 Potassium Level 4.2 Chloride Level 101 Carbon Dioxide Level 28 Anion Gap 11 Blood Urea Nitrogen 11 Creatinine 0.97 Glucose Level 93 Calcium Level 8.0 L Phosphorus Level 3.0 Magnesium Level 1.9 Albumin 2.6 L Medications Medications Current Medications Acetaminophen (Tylenol Tab) 650 mg Q6H PRN PO PAIN LEVEL 1-3 OR FEVER Last administered on 02/18/17t 20:47; Admin Dose 650 MG; Start 02/12/17 at 14:00 Oxycodone/ Acetaminophen (Percocet (5/ 325)) 1 tab Q6H PRN PO SEVERE PAIN LEVEL 7-10 Last administered on 02/20/17 11:59; Admin Dose 1 TAB; Start 02/12 at 14:00 Bisacodyl (Dulcolax) 5 mg DAILY PRN PO CONSTIPATION; Start 02/12/17 at 14:00 Pantoprazole (Protonix Tab) 40 mg DAILY@06 PO Last administered on 03/01/17 05 :03; Admin Dose 40 MG; Start 02/13/17 at 06:00 Aspirin (Halfprin) 81 mg DAILY PO Last administered on 03/01/17 08:59; Admin Dose 81 MG; Start 02/13/17 at 09:00 Atorvastatin Calcium (Lipitor) 20 mg HS PO Last administered on 02/28/17 20: 12; Admin Dose 20 MG; Start 02/12/17 at 21:00 Guaifenesin/ Dextromethorphan (Robitussin Dm Liquid Cup) 5 ml Q4H PRN PO cough Last administered on 02/26/17 15:18; Admin Dose 5 ML; Start 02/15/17 at 20:00 IV Flush (NS 10 ml) 10 ml PRN PRN IV IV PROTOCOL; Start 02/16/17 at 13:00 Cephalexin (Keflex) 500 mg BID PO Last administered on 02/20/17 21:19; Admin Dose 500 MG; Start 02/19/17 at 09:00; Status Future Hold Acetaminophen (Tylenol Tab) 650 mg Q4H PRN PO NON-CARDIAC PAIN LEVEL (1-3); Start 02/21/17 at 08:30 Morphine Sulfate (morphine) 2 mg Q2H PRN IV FOR NON CARDIAC PAIN (4-10); Start 02/21/17 at 08:30 Al Hydrox/Mg Hydrox/Simethicone (Mag-Al Plus) 30 ml Q4H PRN PO GASTROINTESTINAL UPSET; Start 02/21/17 at 08:30 Ondansetron HCl (Zofran Inj) 4 mg Q4H PRN IV NAUSEA AND/OR VOMITING Last administered on 02/28/17 11:26; Admin Dose 4 MG; Start 02/21/17 at 08:30 Miscellaneous Information (* Miscellaneous Pharmacy Order) DC all Lovenox, Hepari... ONCE XX ; Start 02/21/17 at 08:30 Phenol (Cepastat Lozenge) 1 lozenge Q4 PRN MT sore throat Last administered on 02/23/17 11:21; Admin Dose 1 LOZENGE; Start 02/22/17 at 14:30 Lisinopril (Zestril) 2.5 mg DAILY PO Last administered on 03/01/17 09:01; Admin Dose 2.5 MG; Start 02/24/17 at 09:00 Carvedilol (Coreg) 6.25 mg BID PO Last administered on 03/01/17 09:00; Admin Dose 6.25 MG; Start 02/27/17 at 21:00 GARY CROSS MD Mar 01, 2017 11:06
[2017-03-01] MEDS: ONDANSETRON 4 MG INJ IV PRN (12:54)
--- NOTE | 2017-03-01 15:29 | RADRPT ---
PROCEDURE: Left upper EXTREMITY DVT STUDY CLINICAL INDICATION: Edema TECHNIQUE: Scans of the lower extremity veins were performed with color Doppler imaging compression and augmentation and spectal analysis. COMPARISON: None FINDINGS: Left upper extremity demonstrate significant edema. There is see a PICC catheter noted in the left b asilic vein and left subclavian vein. Left radial, ulnar, brachial, axillary, subclavian vein, inter nal jugular vein is patent and compressible. The left basilic vein is not compressible with intralum inal thrombus seen. IMPRESSION: Viviane catheter DVT left basilic vein consistent with DVT. Left subclavian vein also contains catheter but is patent and compressible. Critical Findings phoned to Phu at office RPTAT: AAOO Physician Sussy Date Time Electronically viewed and signed by Physician Sussy on 03/01/2017 15:29 MB/
--- NOTE | 2017-03-01 19:45 | CONS ---
Date/Time of Note Date/Time of Note DATE: 03/01/17 TIME: 19:43 Assessment/Plan Assessment/Plan Chief Complaint/Hosp Course IMP: 1.CHF-systolic acute on chronic 2. cardiomyopathy 3.ICD near EOL now Post-op s/p generator change 4.Pleural effusion 5.Leukopenia 6.Met Breast CA 7. Hyponatremia-resolved 8. Renal failure 9. Hypotension-improved off pressors and tolerating anti-hypretenives 10.R pleural effusion s/p PLeur-x catheter placement 11. Dysphagia s/p dilitation Recc: -Now on med-surg -Follow volume status closely and drain pleur-x catheter as necessary, due tomorrow -Continue coreg /ACEI as tolerted for treatment of cmy -Continue statin/ASA -Continue abx prophylaxis -ongoing eval and treatment of dysphagia Problems: Consultation Date/Type/Reason Admit Date/Time Feb 12, 2017 at 09:06 Initial Consult Date 02/12/2017 Type of Consultation: cardiology Reason for Consultation cardiomyopathy Referring Provider: GARY CROSS MD Exam/Review of Systems Vital Signs Vitals Vital Signs Date Time Temp Pulse Resp B/P Pulse Ox O2 Delivery O2 Flow Rate FiO2 03/01/17 14:48 2.0 03/01/17 08:30 Nasal Cannula 03/01/17 08:19 102 16 94 03/01/17 08:09 97.8 101/53 Intake and Output 02/28/17 02/28/17 03/01/17 15:00 23:00 07:00 Intake Total 700 ml 850 ml Balance 700 ml 850 ml Exam Review of Systems: CONSTITUTIONAL: No fevers, chills. PULMONARY: mild sob CARDIOVASCULAR: No chest pain/palpitations GASTROINTESTINAL: No nausea/vomiting. GENITOURINARY: No hematuria/dysuria. MUSCULOSKELETAL: No myagias/arthalgias. PSYCHIATRIC: The patient denies depression. NEUROLOGIC: mild generalized weakness Constitutional: alert Psych: no complaints Head: normocephalic ENMT: mucosa pink and moist Neck: jvd (9 cvm water), supple Respiratory: diminished breath sounds Cardiovascular: other (pacer pocket with dressing covering and dried blood), regular rate and rhythm Gastrointestinal: non-tender, soft Musculoskeletal: muscle weakness (mild generalized) Extremities: pitting pedal edema (none) Neurological: other (No focal deficits) Results Result Diagram: 03/01/17 0445 03/01/17 0445 Results 24 hrs Laboratory Tests Test 03/01/17 04:45 White Blood Count 6.8 Red Blood Count 2.80 L Hemoglobin 8.7 L Hematocrit 26.9 L Mean Corpuscular Volume 96.1 Mean Corpuscular Hemoglobin 31.1 Mean Corpuscular Hemoglobin Concent 32.3 Red Cell Distribution Width 14.5 Platelet Count 382 Mean Platelet Volume 10.4 Neutrophils % 70.7 Lymphocytes % 6.2 L Monocytes % 12.8 H Eosinophils % 6.6 Basophils % 1.2 Nucleated Red Blood Cells % 0.0 Neutrophils # 4.8 Lymphocytes # 0.4 L Monocytes # 0.9 Eosinophils # 0.5 Basophils # 0.1 Nucleated Red Blood Cells # 0.0 Sodium Level 136 Potassium Level 4.2 Chloride Level 101 Carbon Dioxide Level 28 Anion Gap 11 Blood Urea Nitrogen 11 Creatinine 0.97 Glucose Level 93 Calcium Level 8.0 L Phosphorus Level 3.0 Magnesium Level 1.9 Albumin 2.6 L Medications Medications Current Medications Acetaminophen (Tylenol Tab) 650 mg Q6H PRN PO PAIN LEVEL 1-3 OR FEVER Last administered on 02/18/17 20:47; Admin Dose 650 MG; Start 02/12/17 at 14:00 Oxycodone/ Acetaminophen (Percocet (5/ 325)) 1 tab Q6H PRN PO SEVERE PAIN LEVEL 7-10 Last administered on 02/20/17 11:59; Admin Dose 1 TAB; Start 02/12 at 14:00 Bisacodyl (Dulcolax) 5 mg DAILY PRN PO CONSTIPATION; Start 02/12/17 at 14:00 Pantoprazole (Protonix Tab) 40 mg DAILY@06 PO Last administered on 03/01/17 05 :03; Admin Dose 40 MG; Start 02/13/17 at 06:00 Aspirin (Halfprin) 81 mg DAILY PO Last administered on 03/01/17 08:59; Admin Dose 81 MG; Start 02/13/17 at 09:00 Atorvastatin Calcium (Lipitor) 20 mg HS PO Last administered on 02/28/17 20: 12; Admin Dose 20 MG; Start 02/12/17 at 21:00 Guaifenesin/ Dextromethorphan (Robitussin Dm Liquid Cup) 5 ml Q4H PRN PO cough Last administered on 02/26/17 15:18; Admin Dose 5 ML; Start 02/15/17 at 20:00 IV Flush (NS 10 ml) 10 ml PRN PRN IV IV PROTOCOL; Start 02/16/17 at 13:00 Cephalexin (Keflex) 500 mg BID PO Last administered on 02/20/17 21:19; Admin Dose 500 MG; Start 02/19/17 at 09:00; Status Future Hold Acetaminophen (Tylenol Tab) 650 mg Q4H PRN PO NON-CARDIAC PAIN LEVEL (1-3); Start 02/21/17 at 08:30 Morphine Sulfate (morphine) 2 mg Q2H PRN IV FOR NON CARDIAC PAIN (4-10); Start 02/21/17 at 08:30 Al Hydrox/Mg Hydrox/Simethicone (Mag-Al Plus) 30 ml Q4H PRN PO GASTROINTESTINAL UPSET; Start 02/21/17 at 08:30 Ondansetron HCl (Zofran Inj) 4 mg Q4H PRN IV NAUSEA AND/OR VOMITING Last administered on 03/01/17 12:54; Admin Dose 4 MG; Start 02/21/17 at 08:30 Miscellaneous Information (* Miscellaneous Pharmacy Order) DC all Lovenox, Hepari... ONCE XX ; Start 02/21/17 at 08:30 Phenol (Cepastat Lozenge) 1 lozenge Q4 PRN MT sore throat Last administered on 02/23/17 11:21; Admin Dose 1 LOZENGE; Start 02/22/17 at 14:30 Lisinopril (Zestril) 2.5 mg DAILY PO Last administered on 03/01/17 09:01; Admin Dose 2.5 MG; Start 02/24/17 at 09:00 Carvedilol (Coreg) 6.25 mg BID PO Last administered on 03/01/17 09:00; Admin Dose 6.25 MG; Start 02/27/17 at 21:00 ROXIE VELARDE Mar 01, 2017 19:45
[2017-03-01] MEDS: ATORVASTATIN 20 MG TAB PO SCH (20:35)
[2017-03-01 20:43] VITALS: BP 102/51; RESP 20
[2017-03-02 01:57] VITALS: BP 108/59; RESP 20
[2017-03-02] MEDS: PANTOPRAZOLE (EC) 40 MG TAB PO SCH (06:03)
[2017-03-02 07:49] VITALS: BP 107/58; RESP 18
[2017-03-02] MEDS: ALBUTEROL/IPRATROPIUM (NEB) 3 ML AMP HHN SCH ×3 (08:33→19:40)
[2017-03-02] MEDS: ASPIRIN (EC) 81 MG TAB PO SCH (08:56)
[2017-03-02] MEDS: LISINOPRIL 5 MG TAB PO SCH (08:56)
--- NOTE | 2017-03-02 12:08 | PN ---
Date/Time of Note Date/Time of Note DATE: 03/02/17 TIME: 12:06 Assessment/Plan VTE Prophylaxis VTE Prophylaxis Intervention: SCD's Lines/Catheters IV [facility]from [facility] Mid Line Urinary Cath still in place: No Assessment/Plan Chief Complaint/Hosp Course Summary Assessment and Plan: Assessment: Dysphagia EGD 02/27 Impression: Food impaction in mid-esophagus. Removed Narrowing the midesophagus which appears to be extrinsic. Post balloon dilatation to 18 mm. Moderate distal esophagitis. Otherwise normal EGD. Bilateral pleural effusions, likely malignant Pulmonary edema Leukopenia Metastatic breast cancer to bone and pelvis Anemia of chronic disease Acute kidney injury Cardiomyopathy, congestive heart failure, acute on chronic ejection fraction 45% , Plan: On pured diet- tolerating well Encouraged to drink water after a few bites of food Continue to monitor for dysphasia and possible need of PEG in future Antiemetic medication as needed Patient seen in collaboration with Subjective: Course reviewed with nursing staff Patient interviewed and examined All labs, imaging and other results reviewed Patient doing better today, tolerating diet better today Encouraged to drink water after few bites of food. No c/o dysphagia with breakfast Continues to complains of nausea, utilized antiemetic as needed medication. Patient currently DNR PHYSICAL EXAMINATION: GENERAL: Frail, alert and oriented 3, no distress SKIN: No lesions, no stigmata chronic liver disease, no evidence of bleeding diathesis LYMPHATIC: No palpable lymphadenopathy. HEAD: Normocephalic, atraumatic, no tenderness. EYES: Pupils equal reactive to light and accommodation, full extraocular movements, sclera clear, non-icteric, no discharge. EARS/NOSE AND THROAT: Ears normal, nose normal, oropharynx normal NECK: Supple, no masses, thyroid normal, JVP within normal limits, carotids normal without bruits. CHEST: pleurx cath drain CARDIOVASCULAR: Heart: Regular rate and rhythm, no murmurs, gallops or rubs. Peripheral pulses present within normal limits, no cyanosis, clubbing or edemas. No pulsatile abdominal mass RESPIRATORY: Diminished, GASTROINTESTINAL AND LIVER: Abdomen: Soft, non tenderness, non-distended, no hernias, no masses, no organomegaly, no ascites, no guarding, no rebound tenderness, normoactive bowel sounds. Rectal: Deferred. GENITOURINARY:Female genitalia within normal limits. EXTREMITIES: No cyanosis, clubbing or edema. Problems: Exam/Review of Systems Vital Signs Vitals Vital Signs Date Time Temp Pulse Resp B/P Pulse Ox O2 Delivery O2 Flow Rate FiO2 03/02/17 08:30 109 20 93 Nasal Cannula 3.0 03/02/17 07:49 98.9 107/58 Intake and Output 03/01/17 03/01/17 03/02/17 15:00 23:00 07:00 Intake Total 480 ml 300 ml Output Total 0 ml Balance 480 ml 300 ml Results Result Diagram: 03/02/175 03/02/17 0435 Results 24 hrs Laboratory Tests Test 03/02/17 04:35 White Blood Count 7.5 Red Blood Count 2.87 L Hemoglobin 9.1 L Hematocrit 27.5 L Mean Corpuscular Volume 95.8 Mean Corpuscular Hemoglobin 31.7 Mean Corpuscular Hemoglobin Concent 33.1 Red Cell Distribution Width 14.4 Platelet Count 394 Mean Platelet Volume 11.0 H Neutrophils % 75.3 Lymphocytes % 4.1 L Monocytes % 12.2 H Eosinophils % 5.2 Basophils % 1.1 Nucleated Red Blood Cells % 0.0 Neutrophils # 5.7 Lymphocytes # 0.3 L Monocytes # 0.9 Eosinophils # 0.4 Basophils # 0.1 Nucleated Red Blood Cells # 0.0 Sodium Level 135 Potassium Level 4.2 Chloride Level 99 Carbon Dioxide Level 27 Anion Gap 13 Blood Urea Nitrogen 11 Creatinine 0.95 Glucose Level 101 Calcium Level 8.0 L Phosphorus Level 3.0 Magnesium Level 1.8 Albumin 2.8 L Medications Medications Current Medications Acetaminophen (Tylenol Tab) 650 mg Q6H PRN PO PAIN LEVEL 1-3 OR FEVER Last administered on 02/18/17 20:47; Admin Dose 650 MG; Start 02/12/17 at 14:00 Oxycodone/ Acetaminophen (Percocet (5/ 325)) 1 tab Q6H PRN PO SEVERE PAIN LEVEL 7-10 Last administered on 02/20/17 11:59; Admin Dose 1 TAB; Start 02/12 at 14:00 Bisacodyl (Dulcolax) 5 mg DAILY PRN PO CONSTIPATION; Start 02/12/17 at 14:00 Pantoprazole (Protonix Tab) 40 mg DAILY@06 PO Last administered on 03/02/17 06 :03; Admin Dose 40 MG; Start 02/13/17 at 06:00 Aspirin (Halfprin) 81 mg DAILY PO Last administered on 03/02/17 08:56; Admin Dose 81 MG; Start 02/13/17 at 09:00 Atorvastatin Calcium (Lipitor) 20 mg HS PO Last administered on 03/01/17 20:35 ; Admin Dose 20 MG; Start 02/12/17 at 21:00 Guaifenesin/ Dextromethorphan (Robitussin Dm Liquid Cup) 5 ml Q4H PRN PO cough Last administered on 02/26/17 15:18; Admin Dose 5 ML; Start 02/15/17 at 20:00 IV Flush (NS 10 ml) 10 ml PRN PRN IV IV PROTOCOL; Start 02/16/17 at 13:00 Cephalexin (Keflex) 500 mg BID PO Last administered on 02/20/17 21:19; Admin Dose 500 MG; Start 02/19/17 at 09:00; Status Future Hold Acetaminophen (Tylenol Tab) 650 mg Q4H PRN PO NON-CARDIAC PAIN LEVEL (1-3); Start 02/21/17 at 08:30 Morphine Sulfate (morphine) 2 mg Q2H PRN IV FOR NON CARDIAC PAIN (4-10); Start 02/21/17 at 08:30 Al Hydrox/Mg Hydrox/Simethicone (Mag-Al Plus) 30 ml Q4H PRN PO GASTROINTESTINAL UPSET; Start 02/21/17 at 08:30 Ondansetron HCl (Zofran Inj) 4 mg Q4H PRN IV NAUSEA AND/OR VOMITING Last administered on 03/01/17 12:54; Admin Dose 4 MG; Start 02/21/17 at 08:30 Miscellaneous Information (* Miscellaneous Pharmacy Order) DC all Lovenox, Hepari... ONCE XX ; Start 02/21/17 at 08:30 Phenol (Cepastat Lozenge) 1 lozenge Q4 PRN MT sore throat Last administered on 02/23/17 11:21; Admin Dose 1 LOZENGE; Start 02/22/17 at 14:30 Lisinopril (Zestril) 2.5 mg DAILY PO Last administered on 03/02/17 08:56; Admin Dose 2.5 MG; Start 02/24/17 at 09:00 Carvedilol (Coreg) 6.25 mg BID PO Last administered on 03/02/17t 08:57; Admin Dose 6.25 MG; Start 02/27/17 at 21:00 DINA SORIANO Mar 02, 2017 12:07
--- NOTE | 2017-03-02 13:08 | CONS ---
Date/Time of Note Date/Time of Note DATE: 03/02/17 TIME: 13:05 Assessment/Plan Assessment/Plan Chief Complaint/Hosp Course IMP: 1.CHF-systolic acute on chronic 2. cardiomyopathy 3.ICD near EOL now Post-op s/p generator change 4.Pleural effusion 5.Leukopenia 6.Met Breast CA 7. Hyponatremia-resolved 8. Renal failure 9. Hypotension-improved off pressors and tolerating anti-hypretenives 10.R pleural effusion s/p PLeur-x catheter placement 11. Dysphagia s/p dilitation Recc: -Now on med-surg -Follow volume status closely and drain pleur-x catheter today -Continue coreg /ACEI as tolerated for treatment of cmy -start po digoxin -Continue statin/ASA -Continue abx prophylaxis -ongoing eval and treatment of dysphagia Problems: Consultation Date/Type/Reason Admit Date/Time Feb 12, 2017 at 09:06 Initial Consult Date 02/12/2017 Type of Consultation: cardiology Reason for Consultation cardiomyopathy Referring Provider: GARY CROSS MD Exam/Review of Systems Vital Signs Vitals Vital Signs Date Time Temp Pulse Resp B/P Pulse Ox O2 Delivery O2 Flow Rate FiO2 03/02/17 08:30 109 20 93 Nasal Cannula 3.0 03/02/17 07:49 98.9 107/58 Intake and Output 03/01/17 03/01/17 03/02/17 15:00 23:00 07:00 Intake Total 480 ml 300 ml Output Total 0 ml Balance 480 ml 300 ml Exam Review of Systems: CONSTITUTIONAL: No fevers, chills. PULMONARY: No sob CARDIOVASCULAR: No chest pain/palpitations GASTROINTESTINAL: No nausea/vomiting. GENITOURINARY: No hematuria/dysuria. MUSCULOSKELETAL: No myagias/arthalgias. PSYCHIATRIC: The patient denies depression. NEUROLOGIC: No weakness Constitutional: alert, oriented Psych: no complaints Head: normocephalic ENMT: mucosa pink and moist Neck: jvd (9 cm water), supple Respiratory: diminished breath sounds (at bases/B), other (pacer site covered by steri-strips c/d/i) Cardiovascular: other (tachycardic, regular rhythm) Gastrointestinal: non-tender, soft Musculoskeletal: muscle tone (normal) Extremities: edema (none) Neurological: other (No focal deficits) Results Result Diagram: 03/02/17 0435 03/02/17 0435 Results 24 hrs Laboratory Tests Test 03/02/17 04:35 White Blood Count 7.5 Red Blood Count 2.87 L Hemoglobin 9.1 L Hematocrit 27.5 L Mean Corpuscular Volume 95.8 Mean Corpuscular Hemoglobin 31.7 Mean Corpuscular Hemoglobin Concent 33.1 Red Cell Distribution Width 14.4 Platelet Count 394 Mean Platelet Volume 11.0 H Neutrophils % 75.3 Lymphocytes % 4.1 L Monocytes % 12.2 H Eosinophils % 5.2 Basophils % 1.1 Nucleated Red Blood Cells % 0.0 Neutrophils # 5.7 Lymphocytes # 0.3 L Monocytes # 0.9 Eosinophils # 0.4 Basophils # 0.1 Nucleated Red Blood Cells # 0.0 Sodium Level 135 Potassium Level 4.2 Chloride Level 99 Carbon Dioxide Level 27 Anion Gap 13 Blood Urea Nitrogen 11 Creatinine 0.95 Glucose Level 101 Calcium Level 8.0 L Phosphorus Level 3.0 Magnesium Level 1.8 Albumin 2.8 L Medications Medications Current Medications Acetaminophen (Tylenol Tab) 650 mg Q6H PRN PO PAIN LEVEL 1-3 OR FEVER Last administered on 02/18/17 20:47; Admin Dose 650 MG; Start 02/12/17 at 14:00 Oxycodone/ Acetaminophen (Percocet (5/ 325)) 1 tab Q6H PRN PO SEVERE PAIN LEVEL 7-10 Last administered on 02/20/17 11:59; Admin Dose 1 TAB; Start 02/12 at 14:00 Bisacodyl (Dulcolax) 5 mg DAILY PRN PO CONSTIPATION; Start 02/12/17 at 14:00 Pantoprazole (Protonix Tab) 40 mg DAILY@06 PO Last administered on 03/02/17 06 :03; Admin Dose 40 MG; Start 02/13/17 at 06:00 Aspirin (Halfprin) 81 mg DAILY PO Last administered on 03/02/17 08:56; Admin Dose 81 MG; Start 02/13/17 at 09:00 Atorvastatin Calcium (Lipitor) 20 mg HS PO Last administered on 03/01/17 20:35 ; Admin Dose 20 MG; Start 02/12/17 at 21:00 Guaifenesin/ Dextromethorphan (Robitussin Dm Liquid Cup) 5 ml Q4H PRN PO cough Last administered on 02/26/17 15:18; Admin Dose 5 ML; Start 02/15/17 at 20:00 IV Flush (NS 10 ml) 10 ml PRN PRN IV IV PROTOCOL; Start 02/16/17 at 13:00 Cephalexin (Keflex) 500 mg BID PO Last administered on 02/20/17 21:19; Admin Dose 500 MG; Start 02/19/17 at 09:00; Status Future Hold Acetaminophen (Tylenol Tab) 650 mg Q4H PRN PO NON-CARDIAC PAIN LEVEL (1-3); Start 02/21/17 at 08:30 Morphine Sulfate (morphine) 2 mg Q2H PRN IV FOR NON CARDIAC PAIN (4-10); Start 02/21/17 at 08:30 Al Hydrox/Mg Hydrox/Simethicone (Mag-Al Plus) 30 ml Q4H PRN PO GASTROINTESTINAL UPSET; Start 02/21/17 at 08:30 Ondansetron HCl (Zofran Inj) 4 mg Q4H PRN IV NAUSEA AND/OR VOMITING Last administered on 03/01/17 12:54; Admin Dose 4 MG; Start 02/21/17 at 08:30 Miscellaneous Information (* Miscellaneous Pharmacy Order) DC all Lovenox, Hepari... ONCE XX ; Start 02/21/17 at 08:30 Phenol (Cepastat Lozenge) 1 lozenge Q4 PRN MT sore throat Last administered on 02/23/17 11:21; Admin Dose 1 LOZENGE; Start 02/22/17 at 14:30 Lisinopril (Zestril) 2.5 mg DAILY PO Last administered on 03/02/17 08:56; Admin Dose 2.5 MG; Start 02/24/17 at 09:00 Carvedilol (Coreg) 6.25 mg BID PO Last administered on 03/02/17 08:57; Admin Dose 6.25 MG; Start 02/27/17 at 21:00 ROXIE VELARDE 2, 2017 13:08
[2017-03-02 13:18] VITALS: BP 135/83; RESP 18
[2017-03-02] MEDS: ONDANSETRON 4 MG TAB PO PRN (13:20)
--- NOTE | 2017-03-02 15:20 | PN ---
Date/Time of Note Date/Time of Note DATE: 03/02/17 TIME: 15:14 Assessment/Plan VTE Prophylaxis VTE Prophylaxis Intervention: SCD's Lines/Catheters IV Catheter Type (from Nrsg): Mid Line Urinary Cath still in place: No Assessment/Plan Assessment/Plan 1. Dysphagia - GI on board and recommendations appreciated. Patient is s/p EGD with dilation. Tolerating pureed diet - Having dry heaving episode but no vomiting. relief with PO Zofran - Swallow study noted, no significant issues - Still refusing PEG placement at this time but may need to be addressed in the future 2. Bilateral pleural effusions, likely malignant - Drainage today - Pulmonology on board. pleurx cath drain Q3days, 500cc each side, 1000cc max when drained - Continue on NC and wean as tolerating to keep saturations >90% 3. Swelling LUE - PICC in place and flushing but no blood return - Will order vasc study to rule out DVT 4. Tachycardia - Cardiology on board and consultation appreciated - Patient started on Digoxin today 5. Hypotension- resolved - will continue to monitor 6. Leukopenia-resolved 7. Cardiomyopathy, congestive heart failure, acute on chronic ejection fraction 45% - Cardiology on board and recommendations appreciated. - Continue statin and aspirin and coreg - ICD battery change done 8. 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 Tay, oncology, outpatient. - Palliative on board and appreciated consultation. Son requesting that Dr. Anderson not seek out family. They will ask for his assistance as needed. Dr. Anderson made aware 9. Anemia of chronic disease - currently stable - will continue monitoring 10. Acute kidney injury, resolved - Nephrology consultation appreciated. improvement in renal function and signed off case. Will reconsult if any issues 11. Disposition - Pleurx drained today. Patient still dry heaving and will reassess in the afternoon if stable for d/c home. Subjective 24 Hr Interval Summary Free Text/Dictation Patient states still experiencing dry heaving but has been able to eat small portions of food. Plans for pleurx drainage today. When asked if feels well to go home she was unsure. No acute overnight events. Exam/Review of Systems Vital Signs Vitals Vital Signs Date Time Temp Pulse Resp B/P Pulse Ox O2 Delivery O2 Flow Rate FiO2 03/02/17 13:18 99.0 120 18 135/83 94 03/02/17 08:30 Nasal Cannula 3.0 Intake and Output 03/01/17 03/01/17 03/02/17 15:00 23:00 07:00 Intake Total 480 ml 300 ml Output Total 0 ml Balance 480 ml 300 ml Exam General: Patient is in NAD. awake and alert Head: Normocephalic atraumatic Eyes: EOMI, pupils reactive to light Neck: Supple, nontender, midline Respiratory: Clear to auscultation bilaterally, no wheezes, diminished breath sounds Cardiovascular: regular rhythm, slightly tachycardic, no obvious murmurs Gastrointestinal: soft, nondistended, non-tender to palpation, bowel sounds heard. Neurological: Moves all extremities spontaneously, swelling improved LUE. pulses palpated Skin: pleurex cath sites CDI bilaterally Results Result Diagram: 03/02/17 0435 03/02/17 0435 Results 24 hrs Laboratory Tests Test 03/02/17 04:35 White Blood Count 7.5 Red Blood Count 2.87 L Hemoglobin 9.1 L Hematocrit 27.5 L Mean Corpuscular Volume 95.8 Mean Corpuscular Hemoglobin 31.7 Mean Corpuscular Hemoglobin Concent 33.1 Red Cell Distribution Width 14.4 Platelet Count 394 Mean Platelet Volume 11.0 H Neutrophils % 75.3 Lymphocytes % 4.1 L Monocytes % 12.2 H Eosinophils % 5.2 Basophils % 1.1 Nucleated Red Blood Cells % 0.0 Neutrophils # 5.7 Lymphocytes # 0.3 L Monocytes # 0.9 Eosinophils # 0.4 Basophils # 0.1 Nucleated Red Blood Cells # 0.0 Sodium Level 135 Potassium Level 4.2 Chloride Level 99 Carbon Dioxide Level 27 Anion Gap 13 Blood Urea Nitrogen 11 Creatinine 0.95 Glucose Level 101 Calcium Level 8.0 L Phosphorus Level 3.0 Magnesium Level 1.8 Albumin 2.8 L Medications Medications Current Medications Acetaminophen (Tylenol Tab) 650 mg Q6H PRN PO PAIN LEVEL 1-3 OR FEVER Last administered on 02/18/17 20:47; Admin Dose 650 MG; Start 02/12/17 at 14:00 Oxycodone/ Acetaminophen (Percocet (5/ 325)) 1 tab Q6H PRN PO SEVERE PAIN LEVEL 7-10 Last administered on 02/20/17 11:59; Admin Dose 1 TAB; Start 02/12 at 14:00 Bisacodyl (Dulcolax) 5 mg DAILY PRN PO CONSTIPATION; Start 02/12/17 at 14:00 Pantoprazole (Protonix Tab) 40 mg DAILY@06 PO Last administered on 03/02/17 06 :03; Admin Dose 40 MG; Start 02/13/17 at 06:00 Aspirin (Halfprin) 81 mg DAILY PO Last administered on 03/02/17 08:56; Admin Dose 81 MG; Start 02/13/17 at 09:00 Atorvastatin Calcium (Lipitor) 20 mg HS PO Last administered on 03/01/17 20:35 ; Admin Dose 20 MG; Start 02/12/17 at 21:00 Guaifenesin/ Dextromethorphan (Robitussin Dm Liquid Cup) 5 ml Q4H PRN PO cough Last administered on 02/26/17 15:18; Admin Dose 5 ML; Start 02/15/17 at 20:00 IV Flush (NS 10 ml) 10 ml PRN PRN IV IV PROTOCOL; Start 02/16/17 at 13:00 Cephalexin (Keflex) 500 mg BID PO Last administered on 02/20/17 21:19; Admin Dose 500 MG; Start 02/19/17 at 09:00; Status Future Hold Acetaminophen (Tylenol Tab) 650 mg Q4H PRN PO NON-CARDIAC PAIN LEVEL (1-3); Start 02/21/17 at 08:30 Morphine Sulfate (morphine) 2 mg Q2H PRN IV FOR NON CARDIAC PAIN (4-10); Start 02/21/17 at 08:30 Al Hydrox/Mg Hydrox/Simethicone (Mag-Al Plus) 30 ml Q4H PRN PO GASTROINTESTINAL UPSET; Start 02/21/17 at 08:30 Miscellaneous Information (* Miscellaneous Pharmacy Order) DC all Lovenox, Hepari... ONCE XX ; Start 02/21/17 at 08:30 Phenol (Cepastat Lozenge) 1 lozenge Q4 PRN MT sore throat Last administered on 02/23/17 11:21; Admin Dose 1 LOZENGE; Start 02/22/17 at 14:30 Lisinopril (Zestril) 2.5 mg DAILY PO Last administered on 03/02/17 08:56; Admin Dose 2.5 MG; Start 02/24/17 at 09:00 Carvedilol (Coreg) 6.25 mg BID PO Last administered on 03/02/17 08:57; Admin Dose 6.25 MG; Start 02/27/17 at 21:00 Ondansetron HCl (Zofran Tab) 4 mg Q6H PRN PO NAUSEA AND/OR VOMITING Last administered on 03/02/17 13:20; Admin Dose 4 MG; Start 03/02/17 at 13:30 Digoxin (Digoxin) 0.125 mg DAILY@13 PO ; Start 03/03/17 at 13:00 GARY CROSS MD Mar 02, 2017 15:20
[2017-03-02 19:55] VITALS: BP 105/53; RESP 20
[2017-03-02] MEDS: ATORVASTATIN 20 MG TAB PO SCH (21:03)
[2017-03-03 02:20] VITALS: BP 100/54; RESP 18
[2017-03-03] MEDS: PANTOPRAZOLE (EC) 40 MG TAB PO SCH (06:21)
[2017-03-03 07:33] VITALS: BP 114/55; RESP 18
[2017-03-03] MEDS: ASPIRIN (EC) 81 MG TAB PO SCH (08:56)
[2017-03-03] MEDS: LISINOPRIL 5 MG TAB PO SCH (09:00)
[2017-03-03 09:06] VITALS: BP 123/60; PULSE 110
[2017-03-03] MEDS: ALBUTEROL/IPRATROPIUM (NEB) 3 ML AMP HHN SCH ×3 (09:13→20:24)
--- NOTE | 2017-03-03 11:10 | PN ---
Date/Time of Note Date/Time of Note DATE: 03/03/17 TIME: 11:09 Assessment/Plan VTE Prophylaxis VTE Prophylaxis Intervention: SCD's Lines/Catheters IV Catheter Type (from Nrsg): Mid Line Urinary Cath still in place: No Assessment/Plan Assessment/Plan 1. Dysphagia - GI on board and recommendations appreciated. Patient is s/p EGD with dilation. Not tolerating mechanical soft diet despite taking Zofran before eating and sipping water after each bite. Will change to pureed diet with protein supplements - Still experiencing dry heaving and vomiting after meals - Swallow study noted, no significant issues - Still refusing PEG placement at this time but may need to be addressed in the future 2. Bilateral pleural effusions, likely malignant - Pulmonology on board. pleurx cath drain Q3days, 500cc each side, 1000cc max when drained - Tolerated drainage yesterday 03/02/17 - Continue on NC and wean as tolerating to keep saturations >90% 3. Swelling LUE - PICC in place and flushing but no blood return - shows superficial DVT - Apply warm compresses. pulses intact 4. Tachycardia - Cardiology on board and consultation appreciated - On Digoxin and coreg 5. Hypotension- resolved - will continue to monitor 6. Leukopenia-resolved 7. Cardiomyopathy, congestive heart failure, acute on chronic ejection fraction 45% - Cardiology on board and recommendations appreciated. - Continue statin and aspirin and coreg - ICD battery change done 8. 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 Tay, oncology, outpatient. - Palliative on board and appreciated consultation. Son requesting that Dr. Anderson not seek out family. They will ask for his assistance as needed. Dr. Anderson made aware 9. Anemia of chronic disease - currently stable - will continue monitoring 10. Acute kidney injury, resolved - Nephrology consultation appreciated. improvement in renal function and signed off case. Will reconsult if any issues 11. Disposition - Patient discussing wanting SNF placement and CM aware. Subjective 24 Hr Interval Summary Free Text/Dictation Patient still experiencing nausea after eating and when standing up quickly. Son at bedside and discussed if patient is not able to tolerate PO diet, PEG is next option. Discussing SNF as well for placement since patient does not feel comfortable being home alone. Exam/Review of Systems Vital Signs Vitals Vital Signs Date Time Temp Pulse Resp B/P Pulse Ox O2 Delivery O2 Flow Rate FiO2 03/03/17 09:15 93 3.0 03/03/17 09:14 70 18 Nasal Cannula 03/03/17 09:06 123/60 03/03/17 07:33 97.5 Intake and Output 03/02/17 03/02/17 03/03/17 15:00 23:00 07:00 Intake Total 800 ml 120 ml Output Total 1000 ml Balance -200 ml 120 ml Exam General: Patient is in NAD. awake and alert Head: Normocephalic atraumatic Eyes: EOMI, pupils reactive to light Neck: Supple, nontender, midline Respiratory: Clear to auscultation bilaterally, no wheezes, diminished breath sounds Cardiovascular: regular rhythm, slightly tachycardic, no obvious murmurs Gastrointestinal: soft, nondistended, non-tender to palpation, bowel sounds heard. Neurological: Moves all extremities spontaneously, swelling improved LUE. pulses palpated Skin: pleurex cath sites CDI bilaterally Results Result Diagram: 03/02/175 03/02/17 0435 Medications Medications Current Medications Acetaminophen (Tylenol Tab) 650 mg Q6H PRN PO PAIN LEVEL 1-3 OR FEVER Last administered on 02/18/17 20:47; Admin Dose 650 MG; Start 02/12/17 at 14:00 Oxycodone/ Acetaminophen (Percocet (5/ 325)) 1 tab Q6H PRN PO SEVERE PAIN LEVEL 7-10 Last administered on 02/20/17 11:59; Admin Dose 1 TAB; Start 02/12 at 14:00 Bisacodyl (Dulcolax) 5 mg DAILY PRN PO CONSTIPATION; Start 02/12/17 at 14:00 Pantoprazole (Protonix Tab) 40 mg DAILY@06 PO Last administered on 03/03/17 06 :21; Admin Dose 40 MG; Start 02/13/17 at 06:00 Aspirin (Halfprin) 81 mg DAILY PO Last administered on 03/03/17 08:56; Admin Dose 81 MG; Start 02/13/17 at 09:00 Atorvastatin Calcium (Lipitor) 20 mg HS PO Last administered on 03/02/17 21:03 ; Admin Dose 20 MG; Start 02/12/17 at 21:00 Guaifenesin/ Dextromethorphan (Robitussin Dm Liquid Cup) 5 ml Q4H PRN PO cough Last administered on 02/26/17 15:18; Admin Dose 5 ML; Start 02/15/17 at 20:00 IV Flush (NS 10 ml) 10 ml PRN PRN IV IV PROTOCOL; Start 02/16/17 at 13:00 Cephalexin (Keflex) 500 mg BID PO Last administered on 02/20/17 21:19; Admin Dose 500 MG; Start 02/19/17 at 09:00; Status Future Hold Acetaminophen (Tylenol Tab) 650 mg Q4H PRN PO NON-CARDIAC PAIN LEVEL (1-3) Last administered on 03/02/17 21:03; Admin Dose 650 MG; Start 02/21/17 at 08: 30 Morphine Sulfate (morphine) 2 mg Q2H PRN IV FOR NON CARDIAC PAIN (4-10); Start 02/21/17 at 08:30 Al Hydrox/Mg Hydrox/Simethicone (Mag-Al Plus) 30 ml Q4H PRN PO GASTROINTESTINAL UPSET; Start 02/21/17 at 08:30 Miscellaneous Information (* Miscellaneous Pharmacy Order) DC all Lovenox, Hepari... ONCE XX ; Start 02/21/17 at 08:30 Phenol (Cepastat Lozenge) 1 lozenge Q4 PRN MT sore throat Last administered on 02/23/17 11:21; Admin Dose 1 LOZENGE; Start 02/22/17 at 14:30 Lisinopril (Zestril) 2.5 mg DAILY PO Last administered on 03/03/17 09:00; Admin Dose 2.5 MG; Start 02/24/17 at 09:00 Carvedilol (Coreg) 6.25 mg BID PO Last administered on 03/03/17 08:59; Admin Dose 6.25 MG; Start 02/27/17 at 21:00 Ondansetron HCl (Zofran Tab) 4 mg Q6H PRN PO NAUSEA AND/OR VOMITING Last administered on 03/02/17 13:20; Admin Dose 4 MG; Start 03/02/17 at 13:30 Digoxin (Digoxin) 0.125 mg DAILY@13 PO ; Start 03/03/17 at 13:00 GARY CROSS MD Mar 03, 2017 11:10
[2017-03-03] MEDS: ONDANSETRON 4 MG TAB PO PRN (13:12)
[2017-03-03] MEDS: DIGOXIN 0.125 MG TAB PO SCH (13:15)
[2017-03-03 13:23] VITALS: BP 95/50; RESP 18
--- NOTE | 2017-03-03 14:49 | CONS ---
Date/Time of Note Date/Time of Note DATE: 03/03/17 TIME: 14:48 Assessment/Plan Assessment/Plan Chief Complaint/Hosp Course IMP: 1.CHF-systolic acute on chronic 2. cardiomyopathy 3.ICD near EOL now Post-op s/p generator change 4.Pleural effusion 5.Leukopenia 6.Met Breast CA 7. Hyponatremia-resolved 8. Renal failure 9. Hypotension-improved off pressors and tolerating anti-hypretenives 10.R pleural effusion s/p PLeur-x catheter placement 11. Dysphagia s/p dilitation Recc: -Now on med-surg -Follow volume status closely and drain pleur-x catheter today -Continue coreg /ACEI as tolerated for treatment of cmy -start po digoxin -Continue statin/ASA -Continue abx prophylaxis -ongoing eval and treatment of dysphagia Problems: Consultation Date/Type/Reason Admit Date/Time Feb 12, 2017 at 09:06 Initial Consult Date 02/12/2017 Type of Consultation: cardiology Reason for Consultation cardiomyopathy Referring Provider: GARY CROSS MD Exam/Review of Systems Vital Signs Vitals Vital Signs Date Time Temp Pulse Resp B/P Pulse Ox O2 Delivery O2 Flow Rate FiO2 03/03/17 13:23 98.4 106 18 95/50 92 03/03/17 09:15 3.0 03/03/17 09:14 Nasal Cannula Intake and Output 03/02/17 03/02/17 03/03/17 15:00 23:00 07:00 Intake Total 800 ml 120 ml Output Total 1000 ml Balance -200 ml 120 ml Exam Review of Systems: CONSTITUTIONAL: No fevers, chills. PULMONARY: No sob CARDIOVASCULAR: No chest pain/palpitations GASTROINTESTINAL: No nausea/vomiting. GENITOURINARY: No hematuria/dysuria. MUSCULOSKELETAL: No myagias/arthalgias. PSYCHIATRIC: The patient denies depression. NEUROLOGIC: No weakness Constitutional: alert, oriented Psych: no complaints Head: normocephalic ENMT: mucosa pink and moist Neck: jvd (9 cm water), supple Respiratory: diminished breath sounds (at bases/B), other (L upper chest pacer pocket with steri-strips c/d/i) Cardiovascular: other (tachycardic, regular rhythm) Gastrointestinal: non-tender, soft Musculoskeletal: muscle tone (normal) Extremities: edema (none) Neurological: other (NO focal deficits) Results Result Diagram: 03/02/175 03/02/175 Medications Medications Current Medications Acetaminophen (Tylenol Tab) 650 mg Q6H PRN PO PAIN LEVEL 1-3 OR FEVER Last administered on 02/18/17 20:47; Admin Dose 650 MG; Start 02/12/17 at 14:00 Oxycodone/ Acetaminophen (Percocet (5/ 325)) 1 tab Q6H PRN PO SEVERE PAIN LEVEL 7-10 Last administered on 02/20/17 11:59; Admin Dose 1 TAB; Start 02/12 at 14:00 Bisacodyl (Dulcolax) 5 mg DAILY PRN PO CONSTIPATION; Start 02/12/17 at 14:00 Pantoprazole (Protonix Tab) 40 mg DAILY@06 PO Last administered on 03/03/17 06 :21; Admin Dose 40 MG; Start 02/13/17 at 06:00 Aspirin (Halfprin) 81 mg DAILY PO Last administered on 03/03/17 08:56; Admin Dose 81 MG; Start 02/13/17 at 09:00 Atorvastatin Calcium (Lipitor) 20 mg HS PO Last administered on 03/02/17 21:03 ; Admin Dose 20 MG; Start 02/12/17 at 21:00 Guaifenesin/ Dextromethorphan (Robitussin Dm Liquid Cup) 5 ml Q4H PRN PO cough Last administered on 02/26/17 15:18; Admin Dose 5 ML; Start 02/15/17 at 20:00 IV Flush (NS 10 ml) 10 ml PRN PRN IV IV PROTOCOL; Start 02/16/17 at 13:00 Cephalexin (Keflex) 500 mg BID PO Last administered on 02/20/17 21:19; Admin Dose 500 MG; Start 02/19/17 at 09:00; Status Future Hold Acetaminophen (Tylenol Tab) 650 mg Q4H PRN PO NON-CARDIAC PAIN LEVEL (1-3) Last administered on 03/02/17 21:03; Admin Dose 650 MG; Start 02/21/17 at 08: 30 Morphine Sulfate (morphine) 2 mg Q2H PRN IV FOR NON CARDIAC PAIN (4-10); Start 02/21/17 at 08:30 Al Hydrox/Mg Hydrox/Simethicone (Mag-Al Plus) 30 ml Q4H PRN PO GASTROINTESTINAL UPSET; Start 02/21/17 at 08:30 Miscellaneous Information (* Miscellaneous Pharmacy Order) DC all Lovenox, Hepari... ONCE XX ; Start 02/21/17 at 08:30 Phenol (Cepastat Lozenge) 1 lozenge Q4 PRN MT sore throat Last administered on 02/23/17 11:21; Admin Dose 1 LOZENGE; Start 02/22/17 at 14:30 Lisinopril (Zestril) 2.5 mg DAILY PO Last administered on 03/03/17 09:00; Admin Dose 2.5 MG; Start 02/24/17 at 09:00 Carvedilol (Coreg) 6.25 mg BID PO Last administered on 03/03/17 08:59; Admin Dose 6.25 MG; Start 02/27/17 at 21:00 Ondansetron HCl (Zofran Tab) 4 mg Q6H PRN PO NAUSEA AND/OR VOMITING Last administered on 03/03/17 13:12; Admin Dose 4 MG; Start 03/02/17 at 13:30 Digoxin (Digoxin) 0.125 mg DAILY@13 PO Last administered on 03/03/17 13:15; Admin Dose 0.125 MG; Start 03/03/17 at 13:00 ROXIE VELARDE Mar 03, 2017 14:49
--- NOTE | 2017-03-03 15:59 | PN ---
Date/Time of Note Date/Time of Note DATE: 03/03/17 TIME: 15:56 Assessment/Plan VTE Prophylaxis VTE Prophylaxis Intervention: SCD's Lines/Catheters IV C[facility]ter Type (from [facility] Mid Line Urinary Cath still in place: No Assessment/Plan Chief Complaint/Hosp Course Summary Assessment and Plan: Assessment: Dysphagia EGD 02/27 Impression: Food impaction in mid-esophagus. Removed Narrowing the midesophagus which appears to be extrinsic. Post balloon dilatation to 18 mm. Moderate distal esophagitis. Otherwise normal EGD. Bilateral pleural effusions, likely malignant Pulmonary edema Leukopenia Metastatic breast cancer to bone and pelvis Anemia of chronic disease Acute kidney injury Cardiomyopathy, congestive heart failure, acute on chronic ejection fraction 45% , Plan: On pured diet, patient now not tolerating as well- c/o nausea/vomiting after meals despite use of zofran and frequent sips of every few bites currently refusing PEG at this time Will plan to start reglan 10mg po q 6 x3 days (will give meds po as patient does not have an IV) Patient seen in collaboration with Subjective: Course reviewed with nursing staff Patient interviewed and examined All labs, imaging and other results reviewed Not tolerating diet as well, will start Reglan in hopes to decrease nausea and vomiting. No bm x2 days Encourage to use PRN medication as needed Patient currently DNR PHYSICAL EXAMINATION: GENERAL: Frail, alert and oriented 3, no distress SKIN: No lesions, no stigmata chronic liver disease, no evidence of bleeding diathesis LYMPHATIC: No palpable lymphadenopathy. HEAD: Normocephalic, atraumatic, no tenderness. EYES: Pupils equal reactive to light and accommodation, full extraocular movements, sclera clear, non-icteric, no discharge. EARS/NOSE AND THROAT: Ears normal, nose normal, oropharynx normal NECK: Supple, no masses, thyroid normal, JVP within normal limits, carotids normal without bruits. CHEST: pleurx cath drain CARDIOVASCULAR: Heart: Regular rate and rhythm, no murmurs, gallops or rubs. Peripheral pulses present within normal limits, no cyanosis, clubbing or edemas. No pulsatile abdominal mass RESPIRATORY: Diminished, GASTROINTESTINAL AND LIVER: Abdomen: Soft, non tenderness, non-distended, no hernias, no masses, no organomegaly, no ascites, no guarding, no rebound tenderness, hypoactive bowel sounds. Rectal: Deferred. GENITOURINARY:Female genitalia within normal limits. EXTREMITIES: No cyanosis, clubbing or edema. Problems: Exam/Review of Systems Vital Signs Vitals Vital Signs Date Time Temp Pulse Resp B/P Pulse Ox O2 Delivery O2 Flow Rate FiO2 03/03/17 13:23 98.4 106 18 95/50 92 03/03/17 09:15 3.0 03/03/17 09:14 Nasal Cannula Intake and Output 03/02/17 03/02/17 03/03/17 15:00 23:00 07:00 Intake Total 800 ml 120 ml Output Total 1000 ml Balance -200 ml 120 ml Results Result Diagram: 03/02/1743403/02/17434 Medications Medications Current Medications Acetaminophen (Tylenol Tab) 650 mg Q6H PRN PO PAIN LEVEL 1-3 OR FEVER Last administered on 02/18/17 20:47; Admin Dose 650 MG; Start 02/12/17 at 14:00 Oxycodone/ Acetaminophen (Percocet (5/ 325)) 1 tab Q6H PRN PO SEVERE PAIN LEVEL 7-10 Last administered on 02/20/17 11:59; Admin Dose 1 TAB; Start 02/12 at 14:00 Bisacodyl (Dulcolax) 5 mg DAILY PRN PO CONSTIPATION; Start 02/12/17 at 14:00 Pantoprazole (Protonix Tab) 40 mg DAILY@06 PO Last administered on 03/03/17 06 :21; Admin Dose 40 MG; Start 02/13/17 at 06:00 Aspirin (Halfprin) 81 mg DAILY PO Last administered on 03/03/17 08:56; Admin Dose 81 MG; Start 02/13/17 at 09:00 Atorvastatin Calcium (Lipitor) 20 mg HS PO Last administered on 03/02/17 21:03 ; Admin Dose 20 MG; Start 02/12/17 at 21:00 Guaifenesin/ Dextromethorphan (Robitussin Dm Liquid Cup) 5 ml Q4H PRN PO cough Last administered on 02/26/17 15:18; Admin Dose 5 ML; Start 02/15/17 at 20:00 IV Flush (NS 10 ml) 10 ml PRN PRN IV IV PROTOCOL; Start 02/16/17 at 13:00 Cephalexin (Keflex) 500 mg BID PO Last administered on 02/20/17 21:19; Admin Dose 500 MG; Start 02/19/17 at 09:00; Status Future Hold Acetaminophen (Tylenol Tab) 650 mg Q4H PRN PO NON-CARDIAC PAIN LEVEL (1-3) Last administered on 03/02/17 21:03; Admin Dose 650 MG; Start 02/21/17 at 08: 30 Morphine Sulfate (morphine) 2 mg Q2H PRN IV FOR NON CARDIAC PAIN (4-10); Start 02/21/17 at 08:30 Al Hydrox/Mg Hydrox/Simethicone (Mag-Al Plus) 30 ml Q4H PRN PO GASTROINTESTINAL UPSET; Start 02/21/17 at 08:30 Miscellaneous Information (* Miscellaneous Pharmacy Order) DC all Lovenox, Hepari... ONCE XX ; Start 02/21/17 at 08:30 Phenol (Cepastat Lozenge) 1 lozenge Q4 PRN MT sore throat Last administered on 02/23/17 11:21; Admin Dose 1 LOZENGE; Start 02/22/17 at 14:30 Lisinopril (Zestril) 2.5 mg DAILY PO Last administered on 03/03/17 09:00; Admin Dose 2.5 MG; Start 02/24/17 at 09:00 Carvedilol (Coreg) 6.25 mg BID PO Last administered on 03/03/17 08:59; Admin Dose 6.25 MG; Start 02/27/17 at 21:00 Ondansetron HCl (Zofran Tab) 4 mg Q6H PRN PO NAUSEA AND/OR VOMITING Last administered on 03/03/17 13:12; Admin Dose 4 MG; Start 03/02/17 at 13:30 Digoxin (Digoxin) 0.125 mg DAILY@13 PO Last administered on 03/03/17 13:15; Admin Dose 0.125 MG; Start 03/03/17 at 13:00 DINA SORIANO Mar 03, 2017 15:59
[2017-03-03] MEDS: METOCLOPRAMIDE 10 MG TAB PO SCH (17:17)
[2017-03-03 20:34] VITALS: BP 94/51; RESP 18
[2017-03-03] MEDS: ATORVASTATIN 20 MG TAB PO SCH (21:37)
[2017-03-04] MEDS: METOCLOPRAMIDE 10 MG TAB PO SCH ×4 (00:42→18:09)
[2017-03-04 02:03] VITALS: BP 100/50; RESP 18
[2017-03-04] MEDS: PANTOPRAZOLE (EC) 40 MG TAB PO SCH (05:44)
[2017-03-04] MEDS: OXYCODONE/ACETAMINOPHEN (5/325) TAB PO PRN (05:51)
[2017-03-04] MEDS: ALBUTEROL/IPRATROPIUM (NEB) 3 ML AMP HHN SCH ×3 (07:44→20:23)
[2017-03-04 08:37] VITALS: BP 91/53; RESP 19
[2017-03-04] MEDS: ASPIRIN (EC) 81 MG TAB PO SCH (08:41)
[2017-03-04] MEDS: LISINOPRIL 5 MG TAB PO SCH (08:42)
[2017-03-04] MEDS: ONDANSETRON 4 MG TAB PO PRN ×2 (09:42→20:51)
[2017-03-04] MEDS ORDERED: traMADol 50 MG TAB PO PRN (10:00)
[2017-03-04] MEDS: SOD CHLORIDE 0.9% 1,000 ML IV SCH ×2 (10:37→20:57)
[2017-03-04] MEDS: DIGOXIN 0.125 MG TAB PO SCH (12:49)
--- NOTE | 2017-03-04 12:55 | PN ---
Date/Time of Note Date/Time of Note DATE: 03/04/17 TIME: 12:51 Assessment/Plan VTE Prophylaxis VTE Prophylaxis Intervention: SCD's Lines/Catheters IV Catheter Type (from Nrsg): Peripheral IV Urinary Cath still in place: No Assessment/Plan Assessment/Plan 1. Dysphagia - GI on board and recommendations appreciated. Trying patient on Reglan to help with motility and nausea with meals. Patient is s/p EGD with dilation. Not tolerating mechanical soft diet despite taking Zofran before eating and sipping water after each bite. Will change to pureed diet with protein supplements - Still experiencing dry heaving and vomiting after meals - Swallow study noted, no significant issues - Still refusing PEG placement at this time but may need to be addressed in the future 2. Bilateral pleural effusions, likely malignant - Pulmonology on board. pleurx cath drain Q3days, 500cc each side, 1000cc max when drained - Tolerated drainage, last done 03/02/17 - Continue on NC and wean as tolerating to keep saturations >90% 3. Swelling LUE0 - PICC in place and flushing but no blood return - shows superficial DVT - Apply warm compresses. pulses intact 4. Tachycardia - Cardiology on board and consultation appreciated - On Digoxin and coreg 5. Hyponatremia - Mostly likely secondary to dehydration - No acute symptoms - Will give IVF and monitor 6. Leukopenia-resolved 7. Cardiomyopathy, congestive heart failure, acute on chronic ejection fraction 45% - Cardiology on board and recommendations appreciated. - Continue statin and aspirin and coreg - ICD battery change done 8. 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 Tay, oncology, outpatient. - Palliative on board and appreciated consultation. Son requesting that Dr. Anderson not seek out family. They will ask for his assistance as needed. Dr. Anderson made aware 9. Anemia of chronic disease - currently stable - will continue monitoring 10. Acute kidney injury, resolved - Nephrology consultation appreciated. improvement in renal function and signed off case. Will reconsult if any issues 11. Disposition - SNF placement - need to improve PO intake prior to discharge Subjective 24 Hr Interval Summary Free Text/Dictation Patient still experiencing nausea especially after pain medications. Appears dehydrated and fatigued. IV line placed this am for access. No acute overnight events. Exam/Review of Systems Vital Signs Vitals Vital Signs Date Time Temp Pulse Resp B/P Pulse Ox O2 Delivery O2 Flow Rate FiO2 03/04/17 09:00 Nasal Cannula 3.0 03/04/17 08:37 97.4 101 19 91/53 95 03/03/17 20:26 30 Intake and Output 03/03/17 03/03/17 03/04/17 15:00 23:00 07:00 Intake Total 1610 ml 500 ml Output Total 800 ml 500 ml Balance 810 ml 0 ml Exam General: Patient is in mild distress secondary to back pain and nausea. awake and alert. pale complexion Head: Normocephalic atraumatic Eyes: EOMI, pupils reactive to light Neck: Supple, nontender, midline Respiratory: Clear to auscultation bilaterally, no wheezes, diminished breath sounds Cardiovascular: regular rhythm, slightly tachycardic, no obvious murmurs Gastrointestinal: soft, nondistended, non-tender to palpation, bowel sounds heard. Neurological: Moves all extremities spontaneously, swelling improved LUE. pulses palpated Skin: pleurex cath sites CDI bilaterally Results Result Diagram: 03/04/1743603/04/17436 Results 24 hrs Laboratory Tests Test 03/04/17 04:37 White Blood Count 8.1 Red Blood Count 2.68 L Hemoglobin 8.4 L Hematocrit 24.9 L Mean Corpuscular Volume 92.9 Mean Corpuscular Hemoglobin 31.3 Mean Corpuscular Hemoglobin Concent 33.7 Red Cell Distribution Width 14.2 Platelet Count 336 Mean Platelet Volume 11.2 H Neutrophils % 75.8 Lymphocytes % 4.4 L Monocytes % 12.8 H Eosinophils % 4.3 Basophils % 0.6 Nucleated Red Blood Cells % 0.0 Neutrophils # 6.1 Lymphocytes # 0.4 L Monocytes # 1.0 H Eosinophils # 0.4 Basophils # 0.1 Nucleated Red Blood Cells # 0.0 Sodium Level 126 L Potassium Level 4.2 Chloride Level 95 L Carbon Dioxide Level 27 Anion Gap 8 Blood Urea Nitrogen 11 Creatinine 0.90 Glucose Level 123 Calcium Level 8.1 L Phosphorus Level 2.6 Magnesium Level 1.5 L Albumin 2.6 L Medications Medications Current Medications Acetaminophen (Tylenol Tab) 650 mg Q6H PRN PO PAIN LEVEL 1-3 OR FEVER Last administered on 02/18/17t 20:47; Admin Dose 650 MG; Start 02/12/17 at 14:00 Oxycodone/ Acetaminophen (Percocet (5/ 325)) 1 tab Q6H PRN PO SEVERE PAIN LEVEL 7-10 Last administered on 03/04/17 05:51; Admin Dose 1 TAB; Start at 14:00 Bisacodyl (Dulcolax) 5 mg DAILY PRN PO CONSTIPATION; Start 02/12/17 at 14:00 Pantoprazole (Protonix Tab) 40 mg DAILY@06 PO Last administered on 03/04/17 05 :44; Admin Dose 40 MG; Start 02/13/17 at 06:00 Aspirin (Halfprin) 81 mg DAILY PO Last administered on 03/04/17 08:41; Admin Dose 81 MG; Start 02/13/17 at 09:00 Atorvastatin Calcium (Lipitor) 20 mg HS PO Last administered on 03/03/17 21:37 ; Admin Dose 20 MG; Start 02/12/17 at 21:00 Guaifenesin/ Dextromethorphan (Robitussin Dm Liquid Cup) 5 ml Q4H PRN PO cough Last administered on 02/26/17 15:18; Admin Dose 5 ML; Start 02/15/17 at 20:00 IV Flush (NS 10 ml) 10 ml PRN PRN IV IV PROTOCOL; Start 02/16/17 at 13:00 Cephalexin (Keflex) 500 mg BID PO Last administered on 02/20/17 21:19; Admin Dose 500 MG; Start 02/19/17 at 09:00; Status Future Hold Acetaminophen (Tylenol Tab) 650 mg Q4H PRN PO NON-CARDIAC PAIN LEVEL (1-3) Last administered on 03/02/17 21:03; Admin Dose 650 MG; Start 02/21/17 at 08: 30 Morphine Sulfate (morphine) 2 mg Q2H PRN IV FOR NON CARDIAC PAIN (4-10); Start 02/21/17 at 08:30 Al Hydrox/Mg Hydrox/Simethicone (Mag-Al Plus) 30 ml Q4H PRN PO GASTROINTESTINAL UPSET; Start 02/21/17 at 08:30 Miscellaneous Information (* Miscellaneous Pharmacy Order) DC all Lovenox, Hepari... ONCE XX ; Start 02/21/17 at 08:30 Phenol (Cepastat Lozenge) 1 lozenge Q4 PRN MT sore throat Last administered on 02/23/17 11:21; Admin Dose 1 LOZENGE; Start 02/22/17 at 14:30 Lisinopril (Zestril) 2.5 mg DAILY PO Last administered on 03/03/17 09:00; Admin Dose 2.5 MG; Start 02/24/17 at 09:00 Carvedilol (Coreg) 6.25 mg BID PO Last administered on 03/03/17 08:59; Admin Dose 6.25 MG; Start 02/27/17 at 21:00 Ondansetron HCl (Zofran Tab) 4 mg Q6H PRN PO NAUSEA AND/OR VOMITING Last administered on 03/04/17 09:42; Admin Dose 4 MG; Start 03/02/17 at 13:30 Digoxin (Digoxin) 0.125 mg DAILY@13 PO Last administered on 03/04/17 12:49; Admin Dose 0.125 MG; Start 03/03/17 at 13:00 Metoclopramide HCl (Reglan) 10 mg Q6 PO Last administered on 03/04/17 12:06; Admin Dose 10 MG; Start 03/03/17 at 18:00; Stop 03/06/17 at 18:00 Tramadol HCl 50 mg 50 mg Q6H PRN PO pain; Start 03/04/17 at 10:00 Sodium Chloride (NS) 1,000 ml @ 100 mls/hr Q10H IV Last administered on 10:37; Admin Dose 100 MLS/HR; Start 03/04/17 at 10:30 GARY CROSS MD Mar 04, 2017 12:55
--- NOTE | 2017-03-04 14:53 | PN ---
Date/Time of Note Date/Time of Note DATE: 03/04/17 TIME: 14:51 Assessment/Plan VTE Prophylaxis VTE Prophylaxis Intervention: SCD's Lines/Catheters IV Catheter Type (from Nrs): Peripheral IV Urinary Cath still in place: No Assessment/Plan Chief Complaint/Hosp Course Dysphagia EGD 02/27 Impression: Food impaction in mid-esophagus. Removed Narrowing the midesophagus which appears to be extrinsic. Post balloon dilatation to 18 mm. Moderate distal esophagitis. Otherwise normal EGD. Persistent nausea Bilateral pleural effusions, likely malignant Pulmonary edema Leukopenia Metastatic breast cancer to bone and pelvis Anemia of chronic disease Acute kidney injury Cardiomyopathy, congestive heart failure, acute on chronic ejection fraction 45% , Plan: Continue present regimen Increase Reglan to 10 mg 3 times daily Continue Zofran as needed Encourage p.o. intake of supplements i.e. boost/Ensure Subjective: Course reviewed with nursing staff Patient interviewed and examined All labs, imaging and other results reviewed Still complaining of nausea which prevents her from eating She actually denies dysphagia at the present time We will increase dose of Reglan 10 mg 3 times daily Continue Zofran as needed Encourage Ensure/boost preferentially due to increase nutritional value Son present more open to the possibility of PEG if she continues to be unable to maintain nutrition Patient currently DNR PHYSICAL EXAMINATION: GENERAL: Frail, alert and oriented 3, no distress SKIN: No lesions, no stigmata chronic liver disease, no evidence of bleeding diathesis LYMPHATIC: No palpable lymphadenopathy. HEAD: Normocephalic, atraumatic, no tenderness. EYES: Pupils equal reactive to light and accommodation, full extraocular movements, sclera clear, non-icteric, no discharge. EARS/NOSE AND THROAT: Ears normal, nose normal, oropharynx normal NECK: Supple, no masses, thyroid normal, JVP within normal limits, carotids normal without bruits. CHEST: pleurx cath drain CARDIOVASCULAR: Heart: Regular rate and rhythm, no murmurs, gallops or rubs. Peripheral pulses present within normal limits, no cyanosis, clubbing or edemas. No pulsatile abdominal mass RESPIRATORY: Diminished, GASTROINTESTINAL AND LIVER: Abdomen: Soft, non tenderness, non-distended, no hernias, no masses, no organomegaly, no ascites, no guarding, no rebound tenderness, hypoactive bowel sounds. Rectal: Deferred. GENITOURINARY:Female genitalia within normal limits. EXTREMITIES: No cyanosis, clubbing or edema. Problems: Exam/Review of Systems Vital Signs Vitals Vital Signs Date Time Temp Pulse Resp B/P Pulse Ox O2 Delivery O2 Flow Rate FiO2 03/04/17 13:23 106 20 95 Nasal Cannula 3.0 03/04/17 08:37 97.4 91/53 03/03/17 20:26 30 Intake and Output 03/03/17 03/03/17 03/04/17 15:00 23:00 07:00 Intake Total 1610 ml 500 ml Output Total 800 ml 500 ml Balance 810 ml 0 ml Results Result Diagram: 03/04/17 0437 03/04/17 043 Results 24 hrs Laboratory Tests Test 03/04/17 04:37 White Blood Count 8.1 Red Blood Count 2.68 L Hemoglobin 8.4 L Hematocrit 24.9 L Mean Corpuscular Volume 92.9 Mean Corpuscular Hemoglobin 31.3 Mean Corpuscular Hemoglobin Concent 33.7 Red Cell Distribution Width 14.2 Platelet Count 336 Mean Platelet Volume 11.2 H Neutrophils % 75.8 Lymphocytes % 4.4 L Monocytes % 12.8 H Eosinophils % 4.3 Basophils % 0.6 Nucleated Red Blood Cells % 0.0 Neutrophils # 6.1 Lymphocytes # 0.4 L Monocytes # 1.0 H Eosinophils # 0.4 Basophils # 0.1 Nucleated Red Blood Cells # 0.0 Sodium Level 126 L Potassium Level 4.2 Chloride Level 95 L Carbon Dioxide Level 27 Anion Gap 8 Blood Urea Nitrogen 11 Creatinine 0.90 Glucose Level 123 Calcium Level 8.1 L Phosphorus Level 2.6 Magnesium Level 1.5 L Albumin 2.6 L Medications Medications Current Medications Acetaminophen (Tylenol Tab) 650 mg Q6H PRN PO PAIN LEVEL 1-3 OR FEVER Last administered on 02/18/17 20:47; Admin Dose 650 MG; Start 02/12/17 at 14:00 Oxycodone/ Acetaminophen (Percocet (5/ 325)) 1 tab Q6H PRN PO SEVERE PAIN LEVEL 7-10 Last administered on 03/04/17 05:51; Admin Dose 1 TAB; Start at 14:00 Bisacodyl (Dulcolax) 5 mg DAILY PRN PO CONSTIPATION; Start 02/12/17 at 14:00 Pantoprazole (Protonix Tab) 40 mg DAILY@06 PO Last administered on 03/04/17 05 :44; Admin Dose 40 MG; Start 02/13/17 at 06:00 Aspirin (Halfprin) 81 mg DAILY PO Last administered on 03/04/17 08:41; Admin Dose 81 MG; Start 02/13/17 at 09:00 Atorvastatin Calcium (Lipitor) 20 mg HS PO Last administered on 03/03/17 21:37 ; Admin Dose 20 MG; Start 02/12/17 at 21:00 Guaifenesin/ Dextromethorphan (Robitussin Dm Liquid Cup) 5 ml Q4H PRN PO cough Last administered on 02/26/17 15:18; Admin Dose 5 ML; Start 02/15/17 at 20:00 IV Flush (NS 10 ml) 10 ml PRN PRN IV IV PROTOCOL; Start 02/16/17 at 13:00 Cephalexin (Keflex) 500 mg BID PO Last administered on 02/20/17 21:19; Admin Dose 500 MG; Start 02/19/17 at 09:00; Status Future Hold Acetaminophen (Tylenol Tab) 650 mg Q4H PRN PO NON-CARDIAC PAIN LEVEL (1-3) Last administered on 03/02/17 21:03; Admin Dose 650 MG; Start 02/21/17 at 08: 30 Morphine Sulfate (morphine) 2 mg Q2H PRN IV FOR NON CARDIAC PAIN (4-10); Start 02/21/17 at 08:30 Al Hydrox/Mg Hydrox/Simethicone (Mag-Al Plus) 30 ml Q4H PRN PO GASTROINTESTINAL UPSET; Start 02/21/17 at 08:30 Miscellaneous Information (* Miscellaneous Pharmacy Order) DC all Lovenox, Hepari... ONCE XX ; Start 02/21/17 at 08:30 Phenol (Cepastat Lozenge) 1 lozenge Q4 PRN MT sore throat Last administered on 02/23/17 11:21; Admin Dose 1 LOZENGE; Start 02/22/17 at 14:30 Lisinopril (Zestril) 2.5 mg DAILY PO Last administered on 03/03/17 09:00; Admin Dose 2.5 MG; Start 02/24/17 at 09:00 Carvedilol (Coreg) 6.25 mg BID PO Last administered on 03/03/17 08:59; Admin Dose 6.25 MG; Start 02/27/17 at 21:00 Ondansetron HCl (Zofran Tab) 4 mg Q6H PRN PO NAUSEA AND/OR VOMITING Last administered on 03/04/17 09:42; Admin Dose 4 MG; Start 03/02/17 at 13:30 Digoxin (Digoxin) 0.125 mg DAILY@13 PO Last administered on 03/04/17 12:49; Admin Dose 0.125 MG; Start 03/03/17 at 13:00 Metoclopramide HCl (Reglan) 10 mg Q6 PO Last administered on 03/04/17 12:06; Admin Dose 10 MG; Start 03/03/17 at 18:00; Stop 03/06/17 at 18:00 Tramadol HCl 50 mg 50 mg Q6H PRN PO pain; Start 03/04/17 at 10:00 Sodium Chloride (NS) 1,000 ml @ 100 mls/hr Q10H IV Last administered on 10:37; Admin Dose 100 MLS/HR; Start 03/04/17 at 10:30 OXANA PARIS MD Mar 04, 2017 14:53
--- NOTE | 2017-03-04 15:14 | CONS ---
Date/Time of Note Date/Time of Note DATE: 03/04/17 TIME: 15:12 Assessment/Plan Assessment/Plan Additional Assessment/Plan CHF-systolic acute on chronic Cardiomyopathy s/p ICD , s/p generator change Met Breast CA Renal failure R pleural effusion s/p Pleur-x catheter placement Continue Coreg Continue Lisinopril Continue Digoxin Continue Lipitor Consultation Date/Type/Reason Admit Date/Time Feb 12, 2017 at 09:06 Constitutional: no complaints, poor po Eyes: no complaints Respiratory: cough Gastrointestinal: constipation, decreased appetite, flatus, nausea, No diarrhea, No vomiting Psychological: no complaints Past Surgical History Past Surgical Hx: endoscopy (Colonoscopy about 1 year ago, colonoscopy more than 5 years ago), other Social History Alcohol Use: none Smoking Status: Current some day smoker Drug Use: none Exam/Review of Systems Vital Signs Vitals Vital Signs Date Time Temp Pulse Resp B/P Pulse Ox O2 Delivery O2 Flow Rate FiO2 03/04/17 13:23 106 20 95 Nasal Cannula 3.0 03/04/17 08:37 97.4 91/53 03/03/17 20:26 30 Intake and Output 03/03/17 03/03/17 03/04/17 15:00 23:00 07:00 Intake Total 1610 ml 500 ml Output Total 800 ml 500 ml Balance 810 ml 0 ml Exam Constitutional: alert Head: atraumatic, normocephalic Respiratory: clear to auscultation Cardiovascular: regular rate and rhythm Gastrointestinal: nl liver, spleen, non-tender, soft Results Result Diagram: 03/04/17 0437 03/04/17 0437 Results 24 hrs Laboratory Tests Test 03/04/17 04:37 White Blood Count 8.1 Red Blood Count 2.68 L Hemoglobin 8.4 L Hematocrit 24.9 L Mean Corpuscular Volume 92.9 Mean Corpuscular Hemoglobin 31.3 Mean Corpuscular Hemoglobin Concent 33.7 Red Cell Distribution Width 14.2 Platelet Count 336 Mean Platelet Volume 11.2 H Neutrophils % 75.8 Lymphocytes % 4.4 L Monocytes % 12.8 H Eosinophils % 4.3 Basophils % 0.6 Nucleated Red Blood Cells % 0.0 Neutrophils # 6.1 Lymphocytes # 0.4 L Monocytes # 1.0 H Eosinophils # 0.4 Basophils # 0.1 Nucleated Red Blood Cells # 0.0 Sodium Level 126 L Potassium Level 4.2 Chloride Level 95 L Carbon Dioxide Level 27 Anion Gap 8 Blood Urea Nitrogen 11 Creatinine 0.90 Glucose Level 123 Calcium Level 8.1 L Phosphorus Level 2.6 Magnesium Level 1.5 L Albumin 2.6 L Medications Medications Current Medications Acetaminophen (Tylenol Tab) 650 mg Q6H PRN PO PAIN LEVEL 1-3 OR FEVER Last administered on 02/18/17 20:47; Admin Dose 650 MG; Start 02/12/17 at 14:00 Oxycodone/ Acetaminophen (Percocet (5/ 325)) 1 tab Q6H PRN PO SEVERE PAIN LEVEL 7-10 Last administered on 03/04/17 05:51; Admin Dose 1 TAB; Start at 14:00 Bisacodyl (Dulcolax) 5 mg DAILY PRN PO CONSTIPATION; Start 02/12/17 at 14:00 Pantoprazole (Protonix Tab) 40 mg DAILY@06 PO Last administered on 03/04/17 05 :44; Admin Dose 40 MG; Start 02/13/17 at 06:00 Aspirin (Halfprin) 81 mg DAILY PO Last administered on 03/04/17 08:41; Admin Dose 81 MG; Start 02/13/17 at 09:00 Atorvastatin Calcium (Lipitor) 20 mg HS PO Last administered on 03/03/17 21:37 ; Admin Dose 20 MG; Start 02/12/17 at 21:00 Guaifenesin/ Dextromethorphan (Robitussin Dm Liquid Cup) 5 ml Q4H PRN PO cough Last administered on 02/26/17 15:18; Admin Dose 5 ML; Start 02/15/17 at 20:00 IV Flush (NS 10 ml) 10 ml PRN PRN IV IV PROTOCOL; Start 02/16/17 at 13:00 Cephalexin (Keflex) 500 mg BID PO Last administered on 02/20/17 21:19; Admin Dose 500 MG; Start 02/19/17 at 09:00; Status Future Hold Acetaminophen (Tylenol Tab) 650 mg Q4H PRN PO NON-CARDIAC PAIN LEVEL (1-3) Last administered on 03/02/17 21:03; Admin Dose 650 MG; Start 02/21/17 at 08: 30 Morphine Sulfate (morphine) 2 mg Q2H PRN IV FOR NON CARDIAC PAIN (4-10); Start 02/21/17 at 08:30 Al Hydrox/Mg Hydrox/Simethicone (Mag-Al Plus) 30 ml Q4H PRN PO GASTROINTESTINAL UPSET; Start 02/21/17 at 08:30 Miscellaneous Information (* Miscellaneous Pharmacy Order) DC all Lovenox, Hepari... ONCE XX ; Start 02/21/17 at 08:30 Phenol (Cepastat Lozenge) 1 lozenge Q4 PRN MT sore throat Last administered on 02/23/17 11:21; Admin Dose 1 LOZENGE; Start 02/22/17 at 14:30 Lisinopril (Zestril) 2.5 mg DAILY PO Last administered on 03/03/17 09:00; Admin Dose 2.5 MG; Start 02/24/17 at 09:00 Carvedilol (Coreg) 6.25 mg BID PO Last administered on 03/03/17 08:59; Admin Dose 6.25 MG; Start 02/27/17 at 21:00 Ondansetron HCl (Zofran Tab) 4 mg Q6H PRN PO NAUSEA AND/OR VOMITING Last administered on 03/04/17 09:42; Admin Dose 4 MG; Start 03/02/17 at 13:30 Digoxin (Digoxin) 0.125 mg DAILY@13 PO Last administered on 03/04/17 12:49; Admin Dose 0.125 MG; Start 03/03/17 at 13:00 Metoclopramide HCl (Reglan) 10 mg Q6 PO Last administered on 03/04/17 12:06; Admin Dose 10 MG; Start 03/03/17 at 18:00; Stop 03/06/17 at 18:00 Tramadol HCl 50 mg 50 mg Q6H PRN PO pain; Start 03/04/17 at 10:00 Sodium Chloride (NS) 1,000 ml @ 100 mls/hr Q10H IV Last administered on 10:37; Admin Dose 100 MLS/HR; Start 03/04/17 at 10:30 STEVEN HERNANDEZ M.D. Mar 04, 2017 15:14
[2017-03-04 15:35] VITALS: BP 116/56; RESP 20
[2017-03-04 20:00] VITALS: BP 125/61; RESP 19
[2017-03-04] MEDS: ATORVASTATIN 20 MG TAB PO SCH (20:50)
[2017-03-04] MEDS: GUAIFENESIN/DM 5ML CUP PO PRN (20:51)
[2017-03-04 20:54] VITALS: BP 119/63; RESP 20
[2017-03-05 01:21] VITALS: BP 122/58; RESP 19
[2017-03-05] MEDS: METOCLOPRAMIDE 10 MG TAB PO SCH ×4 (06:04→17:16)
[2017-03-05] MEDS: PANTOPRAZOLE (EC) 40 MG TAB PO SCH (06:04)
[2017-03-05 07:40] VITALS: BP 101/58; RESP 20
[2017-03-05] MEDS: ASPIRIN (EC) 81 MG TAB PO SCH (08:23)
[2017-03-05] MEDS: LISINOPRIL 5 MG TAB PO SCH (08:25)
[2017-03-05] MEDS: ALBUTEROL/IPRATROPIUM (NEB) 3 ML AMP HHN SCH ×3 (08:49→19:36)
[2017-03-05] MEDS ORDERED: MAGNESIUM SULFATE 2 GM/50 ML 50 ML IVPB ONE (09:30)
[2017-03-05] MEDS: SOD CHLORIDE 0.9% 1,000 ML IV SCH ×3 (10:00→17:15)
[2017-03-05] MEDS: DIGOXIN 0.125 MG TAB PO SCH (13:02)
--- NOTE | 2017-03-05 13:08 | CONS ---
Date/Time of Note Date/Time of Note DATE: 03/05/17 TIME: 13:03 Assessment/Plan Assessment/Plan Additional Assessment/Plan CHF-systolic acute on chronic Cardiomyopathy s/p ICD , s/p generator change Met Breast CA Renal failure R pleural effusion s/p Pleur-x catheter placement Viviane catheter DVT left basilic vein consistent with DVT Heart failure clinically compensated Continue Coreg Continue Lisinopril Continue Digoxin Continue Lipitor Started on Lovenox Consultation Date/Type/Reason Admit Date/Time Feb 12, 2017 at 09:06 Type of Consultation: cardiology Referring Provider: GARY CROSS MD Exam/Review of Systems Vital Signs Vitals Vital Signs Date Time Temp Pulse Resp B/P Pulse Ox O2 Delivery O2 Flow Rate FiO2 03/05/17 09:09 Nasal Cannula 3.0 03/05/17 08:49 115 18 94 03/05/17 07:40 97.5 101/58 03/03/17 20:26 30 Intake and Output 03/04/17 03/04/17 03/05/17 15:00 23:00 07:00 Intake Total 1450 ml 820 ml Output Total 680 ml Balance 1450 ml 140 ml Exam Head: atraumatic, normocephalic Respiratory: clear to auscultation Cardiovascular: regular rate and rhythm Gastrointestinal: nl liver, spleen, non-tender, soft Extremities: normal pulses Results Result Diagram: 03/05/17 0435 03/05/17 0435 Results 24 hrs Laboratory Tests Test 03/05/17 04:35 White Blood Count 6.7 Red Blood Count 2.74 L Hemoglobin 8.8 L Hematocrit 26.1 L Mean Corpuscular Volume 95.3 Mean Corpuscular Hemoglobin 32.1 Mean Corpuscular Hemoglobin Concent 33.7 Red Cell Distribution Width 14.3 Platelet Count 357 Mean Platelet Volume 10.9 H Neutrophils % 75.1 Lymphocytes % 3.9 L Monocytes % 14.6 H Eosinophils % 3.6 Basophils % 0.7 Nucleated Red Blood Cells % 0.0 Neutrophils # 5.1 Lymphocytes # 0.3 L Monocytes # 1.0 H Eosinophils # 0.2 Basophils # 0.1 Nucleated Red Blood Cells # 0.0 Sodium Level 132 L Potassium Level 4.1 Chloride Level 99 Carbon Dioxide Level 26 Anion Gap 11 Blood Urea Nitrogen 8 Creatinine 0.80 Glucose Level 117 Calcium Level 7.7 L Phosphorus Level 2.7 Magnesium Level 1.6 L Albumin 2.6 L Medications Medications Current Medications Acetaminophen (Tylenol Tab) 650 mg Q6H PRN PO PAIN LEVEL 1-3 OR FEVER Last administered on 02/18/17 20:47; Admin Dose 650 MG; Start 02/12/17 at 14:00 Oxycodone/ Acetaminophen (Percocet (5/ 325)) 1 tab Q6H PRN PO SEVERE PAIN LEVEL 7-10 Last administered on 03/04/17 05:51; Admin Dose 1 TAB; Start at 14:00 Bisacodyl (Dulcolax) 5 mg DAILY PRN PO CONSTIPATION; Start 02/12/17 at 14:00 Pantoprazole (Protonix Tab) 40 mg DAILY@06 PO Last administered on 03/05/17 06 :04; Admin Dose 40 MG; Start 02/13/17 at 06:00 Aspirin (Halfprin) 81 mg DAILY PO Last administered on 03/05/17 08:23; Admin Dose 81 MG; Start 02/13/17 at 09:00 Atorvastatin Calcium (Lipitor) 20 mg HS PO Last administered on 03/04/17 20:50 ; Admin Dose 20 MG; Start 02/12/17 at 21:00 Guaifenesin/ Dextromethorphan (Robitussin Dm Liquid Cup) 5 ml Q4H PRN PO cough Last administered on 03/04/17 20:51; Admin Dose 5 ML; Start 02/15/17 at 20:00 IV Flush (NS 10 ml) 10 ml PRN PRN IV IV PROTOCOL; Start 02/16/17 at 13:00 Cephalexin (Keflex) 500 mg BID PO Last administered on 02/20/17 21:19; Admin Dose 500 MG; Start 02/19/17 at 09:00; Status Future Hold Acetaminophen (Tylenol Tab) 650 mg Q4H PRN PO NON-CARDIAC PAIN LEVEL (1-3) Last administered on 03/02/17 21:03; Admin Dose 650 MG; Start 02/21/17 at 08: 30 Morphine Sulfate (morphine) 2 mg Q2H PRN IV FOR NON CARDIAC PAIN (4-10); Start 02/21/17 at 08:30 Al Hydrox/Mg Hydrox/Simethicone (Mag-Al Plus) 30 ml Q4H PRN PO GASTROINTESTINAL UPSET; Start 02/21/17 at 08:30 Miscellaneous Information (* Miscellaneous Pharmacy Order) DC all Lovenox, Hepari... ONCE XX ; Start 02/21/17 at 08:30 Phenol (Cepastat Lozenge) 1 lozenge Q4 PRN MT sore throat Last administered on 02/23/17 11:21; Admin Dose 1 LOZENGE; Start 02/22/17 at 14:30 Lisinopril (Zestril) 2.5 mg DAILY PO Last administered on 03/03/17 09:00; Admin Dose 2.5 MG; Start 02/24/17 at 09:00 Carvedilol (Coreg) 6.25 mg BID PO Last administered on 03/04/17 20:51; Admin Dose 6.25 MG; Start 02/27/17 at 21:00 Ondansetron HCl (Zofran Tab) 4 mg Q6H PRN PO NAUSEA AND/OR VOMITING Last administered on 03/04/17 20:51; Admin Dose 4 MG; Start 03/02/17 at 13:30 Digoxin (Digoxin) 0.125 mg DAILY@13 PO Last administered on 03/05/17 13:02; Admin Dose 0.125 MG; Start 03/03/17 at 13:00 Metoclopramide HCl (Reglan) 10 mg Q6 PO Last administered on 03/05/17 12:14; Admin Dose 10 MG; Start 03/03/17 at 18:00; Stop 03/06/17 at 18:00 Tramadol HCl 50 mg 50 mg Q6H PRN PO pain; Start 03/04/17 at 10:00 Sodium Chloride (NS) 1,000 ml @ 100 mls/hr Q10H IV Last administered on 20:57; Admin Dose 100 MLS/HR; Start 03/04/17 at 10:30 STEVEN HERNANDEZ M.D. Mar 05, 2017 13:08
--- NOTE | 2017-03-05 13:30 | PN ---
Date/Time of Note Date/Time of Note DATE: 03/05/17 TIME: 13:30 Assessment/Plan VTE Prophylaxis VTE Prophylaxis Intervention: SCD's Lines/Catheters IV Catheter Type (from Nrsg): Peripheral IV Urinary Cath still in place: No Assessment/Plan Assessment/Plan 1. Dysphagia - GI on board and recommendations appreciated. On Reglan to help with motility and nausea with meals. Patient is s/p EGD with dilation. - Tolerating pureed diet with Boost - still experiencing nausea with meals but controlled with medications - Swallow study noted, no significant issues - Still refusing PEG placement at this time but may need to be addressed in the future 2. Bilateral pleural effusions, likely malignant - Pulmonology on board. pleurx cath drain Q3days, 500cc each side, 1000cc max when drained - Tolerated drainage, last done 03/05/17 - Continue on NC and wean as tolerating to keep saturations >90% 3. Swelling LUE - PICC in place and flushing but no blood return - shows superficial DVT - Apply warm compresses. pulses intact 4. Tachycardia - Cardiology on board and consultation appreciated - On Digoxin and coreg 5. Hyponatremia - Mostly likely secondary to dehydration - No acute symptoms - gentle IVF and monitor 6. Leukopenia-resolved 7. Cardiomyopathy, congestive heart failure, acute on chronic ejection fraction 45% - Cardiology on board and recommendations appreciated. - Continue statin and aspirin and coreg - ICD battery change done 8. 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 Tay, oncology, outpatient. - Palliative on board and appreciated consultation. Son requesting that Dr. Anderson not seek out family. They will ask for his assistance as needed. Dr. Anderson made aware 9. Anemia of chronic disease - currently stable - will continue monitoring 10. Acute kidney injury, resolved - Nephrology consultation appreciated. improvement in renal function and signed off case. Will reconsult if any issues 11. Disposition - SNF placement Subjective 24 Hr Interval Summary Free Text/Dictation Patient states shes feeling better this am after pleurx drainage. Trying to eat more and drinking Boost. Still experiencing nausea but medication helping. Exam/Review of Systems Vital Signs Vitals Vital Signs Date Time Temp Pulse Resp B/P Pulse Ox O2 Delivery O2 Flow Rate FiO2 03/05/17 09:09 Nasal Cannula 3.0 03/05/17 08:49 115 18 94 03/05/17 07:40 97.5 101/58 03/03/17 20:26 30 Intake and Output 03/04/17 03/04/17 03/05/17 15:00 23:00 07:00 Intake Total 1450 ml 820 ml Output Total 680 ml Balance 1450 ml 140 ml Exam General: Patient in no acute distress today. awake and alert. pale complexion Head: Normocephalic atraumatic Eyes: EOMI, pupils reactive to light Neck: Supple, nontender, midline Respiratory: Clear to auscultation bilaterally, no wheezes, diminished breath sounds Cardiovascular: regular rhythm, slightly tachycardic, no obvious murmurs Gastrointestinal: soft, nondistended, non-tender to palpation, bowel sounds heard. Neurological: Moves all extremities spontaneously, swelling LUE. pulses palpated Skin: pleurex cath sites CDI bilaterally Results Result Diagram: 03/05/17 0435 03/05/17 0435 Results 24 hrs Laboratory Tests Test 03/05/17 04:35 White Blood Count 6.7 Red Blood Count 2.74 L Hemoglobin 8.8 L Hematocrit 26.1 L Mean Corpuscular Volume 95.3 Mean Corpuscular Hemoglobin 32.1 Mean Corpuscular Hemoglobin Concent 33.7 Red Cell Distribution Width 14.3 Platelet Count 357 Mean Platelet Volume 10.9 H Neutrophils % 75.1 Lymphocytes % 3.9 L Monocytes % 14.6 H Eosinophils % 3.6 Basophils % 0.7 Nucleated Red Blood Cells % 0.0 Neutrophils # 5.1 Lymphocytes # 0.3 L Monocytes # 1.0 H Eosinophils # 0.2 Basophils # 0.1 Nucleated Red Blood Cells # 0.0 Sodium Level 132 L Potassium Level 4.1 Chloride Level 99 Carbon Dioxide Level 26 Anion Gap 11 Blood Urea Nitrogen 8 Creatinine 0.80 Glucose Level 117 Calcium Level 7.7 L Phosphorus Level 2.7 Magnesium Level 1.6 L Albumin 2.6 L Medications Medications Current Medications Acetaminophen (Tylenol Tab) 650 mg Q6H PRN PO PAIN LEVEL 1-3 OR FEVER Last administered on 02/18/17 20:47; Admin Dose 650 MG; Start 02/12/17 at 14:00 Oxycodone/ Acetaminophen (Percocet (5/ 325)) 1 tab Q6H PRN PO SEVERE PAIN LEVEL 7-10 Last administered on 03/04/17 05:51; Admin Dose 1 TAB; Start at 14:00 Bisacodyl (Dulcolax) 5 mg DAILY PRN PO CONSTIPATION; Start 02/12/17 at 14:00 Pantoprazole (Protonix Tab) 40 mg DAILY@06 PO Last administered on 03/05/17 06 :04; Admin Dose 40 MG; Start 02/13/17 at 06:00 Aspirin (Halfprin) 81 mg DAILY PO Last administered on 03/05/17 08:23; Admin Dose 81 MG; Start 02/13/17 at 09:00 Atorvastatin Calcium (Lipitor) 20 mg HS PO Last administered on 03/04/17 20:50 ; Admin Dose 20 MG; Start 02/12/17 at 21:00 Guaifenesin/ Dextromethorphan (Robitussin Dm Liquid Cup) 5 ml Q4H PRN PO cough Last administered on 03/04/17 20:51; Admin Dose 5 ML; Start 02/15/17 at 20:00 IV Flush (NS 10 ml) 10 ml PRN PRN IV IV PROTOCOL; Start 02/16/17 at 13:00 Cephalexin (Keflex) 500 mg BID PO Last administered on 02/20/17 21:19; Admin Dose 500 MG; Start 02/19/17 at 09:00; Status Future Hold Acetaminophen (Tylenol Tab) 650 mg Q4H PRN PO NON-CARDIAC PAIN LEVEL (1-3) Last administered on 03/02/17 21:03; Admin Dose 650 MG; Start 02/21/17 at 08: 30 Morphine Sulfate (morphine) 2 mg Q2H PRN IV FOR NON CARDIAC PAIN (4-10); Start 02/21/17 at 08:30 Al Hydrox/Mg Hydrox/Simethicone (Mag-Al Plus) 30 ml Q4H PRN PO GASTROINTESTINAL UPSET; Start 02/21/17 at 08:30 Miscellaneous Information (* Miscellaneous Pharmacy Order) DC all Lovenox, Hepari... ONCE XX ; Start 02/21/17 at 08:30 Phenol (Cepastat Lozenge) 1 lozenge Q4 PRN MT sore throat Last administered on 02/23/17 11:21; Admin Dose 1 LOZENGE; Start 02/22/17 at 14:30 Lisinopril (Zestril) 2.5 mg DAILY PO Last administered on 03/03/17 09:00; Admin Dose 2.5 MG; Start 02/24/17 at 09:00 Carvedilol (Coreg) 6.25 mg BID PO Last administered on 03/04/17 20:51; Admin Dose 6.25 MG; Start 02/27/17 at 21:00 Ondansetron HCl (Zofran Tab) 4 mg Q6H PRN PO NAUSEA AND/OR VOMITING Last administered on 03/04/17 20:51; Admin Dose 4 MG; Start 03/02/17 at 13:30 Digoxin (Digoxin) 0.125 mg DAILY@13 PO Last administered on 03/05/17 13:02; Admin Dose 0.125 MG; Start 03/03/17 at 13:00 Metoclopramide HCl (Reglan) 10 mg Q6 PO Last administered on 03/05/17 12:14; Admin Dose 10 MG; Start 03/03/17 at 18:00; Stop 03/06/17 at 18:00 Tramadol HCl (Ultram) 50 mg Q6H PRN PO pain; Start 03/04/17 at 10:00 Enoxaparin Sodium (Lovenox) 60 mg Q24H SC ; Start 03/05/17 at 13:30 GARY CROSS MD Mar 05, 2017 13:30
[2017-03-05] MEDS: ENOXAPARIN 100 MG/ML SYG SC SCH (14:04)
--- NOTE | 2017-03-05 15:28 | PN ---
Date/Time of Note Date/Time of Note DATE: 03/05/17 TIME: 15:25 Assessment/Plan VTE Prophylaxis VTE Prophylaxis Intervention: SCD's Lines/Catheters IV C[facility]ter Type [facility]from [facility] Peripheral IV Urinary Cath still in place: No Assessment/Plan Chief Complaint/Hosp Course Dysphagia/improved EGD 02/27 Impression: Food impaction in mid-esophagus. Removed Narrowing the midesophagus which appears to be extrinsic. Post balloon dilatation to 18 mm. Moderate distal esophagitis. Otherwise normal EGD. Persistent nausea/improved Bilateral pleural effusions, likely malignant Pulmonary edema Leukopenia Metastatic breast cancer to bone and pelvis Anemia of chronic disease Acute kidney injury Cardiomyopathy, congestive heart failure, acute on chronic ejection fraction 45% , Plan: Continue present regimen Continue Reglan to 10 mg 3 times daily Continue Zofran as needed Encourage p.o. intake of supplements i.e. boost/Ensure Subjective: Course reviewed with nursing staff Patient interviewed and examined All labs, imaging and other results reviewed Complaining of less nausea, able to eat some She actually denies dysphagia at the present time Continue Reglan 10 mg 3 times daily Continue Zofran as needed Encourage Ensure/boost preferentially due to increase nutritional value Son present more open to the possibility of PEG if she continues to be unable to maintain nutrition Patient currently DNR PHYSICAL EXAMINATION: GENERAL: Frail, alert and oriented 3, no distress SKIN: No lesions, no stigmata chronic liver disease, no evidence of bleeding diathesis LYMPHATIC: No palpable lymphadenopathy. HEAD: Normocephalic, atraumatic, no tenderness. EYES: Pupils equal reactive to light and accommodation, full extraocular movements, sclera clear, non-icteric, no discharge. EARS/NOSE AND THROAT: Ears normal, nose normal, oropharynx normal NECK: Supple, no masses, thyroid normal, JVP within normal limits, carotids normal without bruits. CHEST: pleurx cath drain CARDIOVASCULAR: Heart: Regular rate and rhythm, no murmurs, gallops or rubs. Peripheral pulses present within normal limits, no cyanosis, clubbing or edemas. No pulsatile abdominal mass RESPIRATORY: Diminished, GASTROINTESTINAL AND LIVER: Abdomen: Soft, non tenderness, non-distended, no hernias, no masses, no organomegaly, no ascites, no guarding, no rebound tenderness, hypoactive bowel sounds. Rectal: Deferred. GENITOURINARY:Female genitalia within normal limits. EXTREMITIES: No cyanosis, clubbing or edema. Problems: Exam/Review of Systems Vital Signs Vitals Vital Signs Date Time Temp Pulse Resp B/P Pulse Ox O2 Delivery O2 Flow Rate FiO2 03/05/17 14:48 70 20 100 21 03/05/17 09:09 Nasal Cannula 3.0 03/05/17 07:40 97.5 101/58 Intake and Output 03/04/17 03/04/17 03/05/17 15:00 23:00 07:00 Intake Total 1450 ml 820 ml Output Total 680 ml Balance 1450 ml 140 ml Results Result Diagram: 03/05/17 0435 03/05/17 0435 Results 24 hrs Laboratory Tests Test 03/05/17 04:35 White Blood Count 6.7 Red Blood Count 2.74 L Hemoglobin 8.8 L Hematocrit 26.1 L Mean Corpuscular Volume 95.3 Mean Corpuscular Hemoglobin 32.1 Mean Corpuscular Hemoglobin Concent 33.7 Red Cell Distribution Width 14.3 Platelet Count 357 Mean Platelet Volume 10.9 H Neutrophils % 75.1 Lymphocytes % 3.9 L Monocytes % 14.6 H Eosinophils % 3.6 Basophils % 0.7 Nucleated Red Blood Cells % 0.0 Neutrophils # 5.1 Lymphocytes # 0.3 L Monocytes # 1.0 H Eosinophils # 0.2 Basophils # 0.1 Nucleated Red Blood Cells # 0.0 Sodium Level 132 L Potassium Level 4.1 Chloride Level 99 Carbon Dioxide Level 26 Anion Gap 11 Blood Urea Nitrogen 8 Creatinine 0.80 Glucose Level 117 Calcium Level 7.7 L Phosphorus Level 2.7 Magnesium Level 1.6 L Albumin 2.6 L Medications Medications Current Medications Acetaminophen (Tylenol Tab) 650 mg Q6H PRN PO PAIN LEVEL 1-3 OR FEVER Last administered on 02/18/17 20:47; Admin Dose 650 MG; Start 02/12/17 at 14:00 Oxycodone/ Acetaminophen (Percocet (5/ 325)) 1 tab Q6H PRN PO SEVERE PAIN LEVEL 7-10 Last administered on 03/04/17 05:51; Admin Dose 1 TAB; Start at 14:00 Bisacodyl (Dulcolax) 5 mg DAILY PRN PO CONSTIPATION; Start 02/12/17 at 14:00 Pantoprazole (Protonix Tab) 40 mg DAILY@06 PO Last administered on 03/05/17 06 :04; Admin Dose 40 MG; Start 02/13/17 at 06:00 Aspirin (Halfprin) 81 mg DAILY PO Last administered on 03/05/17 08:23; Admin Dose 81 MG; Start 02/13/17 at 09:00 Atorvastatin Calcium (Lipitor) 20 mg HS PO Last administered on 03/04/17 20:50 ; Admin Dose 20 MG; Start 02/12/17 at 21:00 Guaifenesin/ Dextromethorphan (Robitussin Dm Liquid Cup) 5 ml Q4H PRN PO cough Last administered on 03/04/17 20:51; Admin Dose 5 ML; Start 02/15/17 at 20:00 IV Flush (NS 10 ml) 10 ml PRN PRN IV IV PROTOCOL; Start 02/16/17 at 13:00 Cephalexin (Keflex) 500 mg BID PO Last administered on 02/20/17 21:19; Admin Dose 500 MG; Start 02/19/17 at 09:00; Status Future Hold Acetaminophen (Tylenol Tab) 650 mg Q4H PRN PO NON-CARDIAC PAIN LEVEL (1-3) Last administered on 03/02/17 21:03; Admin Dose 650 MG; Start 02/21/17 at 08: 30 Morphine Sulfate (morphine) 2 mg Q2H PRN IV FOR NON CARDIAC PAIN (4-10); Start 02/21/17 at 08:30 Al Hydrox/Mg Hydrox/Simethicone (Mag-Al Plus) 30 ml Q4H PRN PO GASTROINTESTINAL UPSET; Start 02/21/17 at 08:30 Miscellaneous Information (* Miscellaneous Pharmacy Order) DC all Lovenox, Hepari... ONCE XX ; Start 02/21/17 at 08:30 Phenol (Cepastat Lozenge) 1 lozenge Q4 PRN MT sore throat Last administered on 02/23/17 11:21; Admin Dose 1 LOZENGE; Start 02/22/17 at 14:30 Lisinopril (Zestril) 2.5 mg DAILY PO Last administered on 03/03/17 09:00; Admin Dose 2.5 MG; Start 02/24/17 at 09:00 Carvedilol (Coreg) 6.25 mg BID PO Last administered on 03/04/17 20:51; Admin Dose 6.25 MG; Start 02/27/17 at 21:00 Ondansetron HCl (Zofran Tab) 4 mg Q6H PRN PO NAUSEA AND/OR VOMITING Last administered on 03/04/17 20:51; Admin Dose 4 MG; Start 03/02/17 at 13:30 Digoxin (Digoxin) 0.125 mg DAILY@13 PO Last administered on 03/05/17 13:02; Admin Dose 0.125 MG; Start 03/03/17 at 13:00 Metoclopramide HCl (Reglan) 10 mg Q6 PO Last administered on 03/05/17 12:14; Admin Dose 10 MG; Start 03/03/17 at 18:00; Stop 03/06/17 at 18:00 Tramadol HCl (Ultram) 50 mg Q6H PRN PO pain; Start 03/04/17 at 10:00 Enoxaparin Sodium 60 mg 60 mg Q24H SC Last administered on 03/05/17 14:04; Admin Dose 60 MG; Start 03/05/17 at 13:30 Sodium Chloride (NS) 1,000 ml @ 50 mls/hr Q20H IV ; Start 03/05/17 at 14:00 OXANA PARIS MD Mar 05, 2017 15:28
[2017-03-05 16:57] VITALS: BP 118/58; RESP 20
[2017-03-05 19:21] VITALS: BP 104/60; RESP 16
[2017-03-05] MEDS: ATORVASTATIN 20 MG TAB PO SCH (21:18)
[2017-03-05] MEDS: ONDANSETRON 4 MG TAB PO PRN (21:18)
[2017-03-06 01:50] VITALS: BP 95/52; RESP 16
[2017-03-06] MEDS: METOCLOPRAMIDE 10 MG TAB PO SCH ×4 (06:07→18:00)
[2017-03-06] MEDS: PANTOPRAZOLE (EC) 40 MG TAB PO SCH (06:07)
[2017-03-06] MEDS: GUAIFENESIN/DM 5ML CUP PO PRN (06:11)
[2017-03-06] MEDS: ALBUTEROL/IPRATROPIUM (NEB) 3 ML AMP HHN SCH ×3 (08:21→20:00)
[2017-03-06 08:29] VITALS: BP 98/59; RESP 18
[2017-03-06] MEDS: LISINOPRIL 5 MG TAB PO SCH (08:34)
[2017-03-06] MEDS: ONDANSETRON 4 MG TAB PO PRN (08:41)
[2017-03-06] MEDS: ASPIRIN (EC) 81 MG TAB PO SCH (08:41)
[2017-03-06] MEDS: ENOXAPARIN 100 MG/ML SYG SC SCH (13:07)
[2017-03-06] MEDS: DIGOXIN 0.125 MG TAB PO SCH (13:08)
--- NOTE | 2017-03-06 15:07 | DS ---
Date/Time of Note Date/Time of Note DATE: 03/06/17 TIME: 15:05 Discharge Summary Admission/Discharge Info Admit Date/Time Feb 12, 2017 at 09:06 Discharge Date/Time Patient Condition: Stable Hx of Present Illness Patient is a 81-year-old female with past medical history of metastatic breast cancer with metastases to the left hip bones presents to [facility] approximately 3 days after she was discharged. Patient had an extended stay during the previous admission and had multiple workup done and was determined to have a malignant pleural effusion which was drained, and was sent outpatient for follow-up with possible outpatient Pleurx catheter. Patient also was discharged after refusing hospice care and stating she will change her medications with her oncologist who visited her during the previous admission. Cardiology did not place a battery at that time, given her questionable prognosis,. Patient was brought in by family member stating that she did not tolerate her outpatient 4 L nasal cannula and was admitted for worsening pleural effusion. Patient stated that she had shortness of breath and chest pain, however denies chest pain currently and has only mild shortness of breath. Patient denies any nausea vomiting headache or abdominal pain. Hospital Course Discharge diagnosis Bilateral malignant pleural effusions, chronic Dysphasia, resolving Left upper extremity swelling, superficial DVT Tachycardia Hyponatremia, chronic Cardiomyopathy, acute on chronic congestive heart failure with ejection fraction 45% Metastatic breast cancer, with bone and pelvic metastases Anemia of chronic disease Acute kidney injury, resolved esophagitis Patient is an 81-year-old female with a past medical history of metastatic breast cancer with metastases to the bone and pelvic area. Patient also was seen previously a month ago for shortness of breath and was discharged on supplemental oxygen. During this admission patient was readmitted for the same issues and bilateral Pleurx catheters had to be inserted for patient's malignant effusions. Patient wishes to continue treatment at this time and refused hospice. Patient was continued to be evaluated and her AICD battery was also replaced during this admission, by her traveling nurse, and she will follow-up in the outpatient setting. Upon close to discharge, patient developed difficulty swallowing and GI was consulted, found to have possible stricture and patient was given dilation therapy, as well as esophagitis. Patient appears to be swallowing better now, and refuses PEG tube. Patient and patient's son are well aware of condition yet wishes to pursue with full therapy. Patient was DNR throughout this admission. [facility] she can recuperate and hopefully follow-up with her outpatient oncologist. Patient is to continue medications as on medication reconciliation and to follow-up with cardiology, oncology, GI in the outpatient setting. For patient's bilateral Pleurx catheters, instructions are to drain every 3 days approximately 500 cc on each side maximum. Home Meds Active Scripts Carvedilol* (Carvedilol*) 3.125 Mg Tablet, 3.125 MG PO BID for 30 Days, #60 TAB Prov:DIMA COVARRUBIAS 02/09/17 Albuterol Sulfate* (Proair HFA*) 8.5 Gm Hfa.aer.ad, 2 PUFF INH Q4 for COUGH, #1 INHALER Prov:DIMA CUEVAS MD 01/06/17 Reported Medications Aspirin (Low Dose Aspirin) 81 Mg Tablet., 81 MG PO DAILY, #30 TAB 01/06/17 Palbociclib (Ibrance) 100 Mg Capsule, 100 MG PO DAILY, CAP 01/03/17 Pantoprazole* (Protonix*) 40 Mg Tablet., 40 MG PO DAILY, TAB 09/16/14 Atorvastatin Calcium* (Atorvastatin Calcium*) 20 Mg Tablet, 20 MG PO HS, TAB 05/07/14 Primary Care Provider [facility] Time spent on discharge: > 30 minutes Pending Labs Laboratory Tests Test 03/06/17 05:08 White Blood Count 9.010^3/ul (4.8-10.8) Red Blood Count 2.6710^6/ul (4.20-5.40) Hemoglobin 8.4g/dl (12.0-16.0) Hematocrit 25.2% (37.0-47.0) Mean Corpuscular Volume 94.4fl (82.0-101.0) Mean Corpuscular Hemoglobin 31.5pg (29.0-33.0) Mean Corpuscular Hemoglobin Concent 33.3g/dl (32.0-37.0) Red Cell Distribution Width 14.6% (11.5-14.5) Platelet Count 54400^3/UL (140-415) Mean Platelet Volume 10.9fl (7.4-10.4) Neutrophils % 79.2% (39.0-77.0) Lymphocytes % 3.1% (15.0-51.0) Monocytes % 13.7% (0.0-11.0) Eosinophils % 2.5% (0.0-7.0) Basophils % 0.4% (0.0-2.0) Nucleated Red Blood Cells % 0.3/100WBC (0.0-0.0) Neutrophils # 7.210^3/ul (1.6-7.5) Lymphocytes # 0.310^3/ul (0.8-2.9) Monocytes # 1.210^3/ul (0.3-0.9) Eosinophils # 0.210^3/ul (0.0-0.5) Basophils # 0.010^3/ul (0.0-0.1) Nucleated Red Blood Cells # 0.010^3/ul (0.0-0.0) Sodium Level 132mmol/L (135-144) Potassium Level 4.5mmol/L (3.5-5.1) Chloride Level 101mmol/L (97-110) Carbon Dioxide Level 27mmol/L (21-31) Anion Gap 9 (8-16) Blood Urea Nitrogen 9mg/dl (7-20) Creatinine 0.80mg/dl (0.44-1.00) Glucose Level 119mg/dl (70-220) Calcium Level 7.3mg/dl (8.4-10.2) Phosphorus Level 2.8mg/dl (2.5-4.9) Magnesium Level 2.0mg/dl (1.7-2.5) Albumin 2.6g/dl (3.3-4.9) DIMA COVARRUBIAS Mar 06, 2017 15:07
[2017-03-06] MEDS ORDERED: DIGO125T PO (15:09)
[2017-03-06] MEDS ORDERED: METO10TA96 PO (15:09)
[2017-03-06] MEDS ORDERED: CARV6.2579 PO (15:09)
[2017-03-06] MEDS ORDERED: LISI-313 PO (15:09)
[2017-03-06 20:27] VITALS: BP 128/58; RESP 20
[2017-03-06] MEDS: ATORVASTATIN 20 MG TAB PO SCH (21:00)
--- NOTE | 2017-03-06 22:18 | CONS ---
Date/Time of Note Date/Time of Note DATE: 03/06/17 TIME: 22:09 Assessment/Plan Assessment/Plan Chief Complaint/Hosp Course IMP: 1.CHF-systolic acute on chronic. Good volume status currently 2. cardiomyopathy 3.ICD near EOL now Post-op s/p generator change 4.Pleural effusion 5.Leukopenia 6.Met Breast CA 7. Hyponatremia-resolved 8. Renal failure-resolved 10.R pleural effusion s/p PLeur-x catheter placement 11. Dysphagia s/p dilitation 12. Basilic vein thrombosis Recc: -Now on med-surg -Follow volume status closely and drain pleur-x catheter as necessary -Continue coreg /ACEI as tolerated for treatment of cmy and thus if continues to be held may need to reduce dose -Continue digoxin -Continue statin/ASA -ongoing eval and treatment of dysphagia Problems: Consultation Date/Type/Reason Admit Date/Time Feb 12, 2017 at 09:06 Initial Consult Date 02/12/2017 Type of Consultation: cardiology Reason for Consultation cardiomyopathy/CHF Referring Provider: GARY CROSS MD Exam/Review of Systems Vital Signs Vitals Vital Signs Date Time Temp Pulse Resp B/P Pulse Ox O2 Delivery O2 Flow Rate FiO2 03/06/17 20:10 3.0 03/06/17 20:00 93 03/06/17 20:00 116 28 Nasal Cannula 03/06/17 08:29 98.0 98/59 03/05/17 19:38 30 Intake and Output 03/05/17 03/05/17 03/06/17 15:00 23:00 07:00 Intake Total 50 ml 1080 ml 950 ml Output Total 1000 ml 700 ml 620 ml Balance -950 ml 380 ml 330 ml Exam Review of Systems: CONSTITUTIONAL: No fevers, chills. PULMONARY: No sob CARDIOVASCULAR: No chest pain/palpitations GASTROINTESTINAL: No nausea/vomiting. GENITOURINARY: No hematuria/dysuria. MUSCULOSKELETAL: No myagias/arthalgias. PSYCHIATRIC: The patient denies depression. NEUROLOGIC: No weakness Constitutional: alert Psych: no complaints Head: normocephalic ENMT: mucosa pink and moist Neck: jvd (9 cm water), supple Respiratory: diminished breath sounds (bases) Cardiovascular: regular rate and rhythm Gastrointestinal: non-tender, soft Musculoskeletal: muscle weakness (mild generalized) Extremities: edema (none) Neurological: other (no focal deficits) Results Result Diagram: 03/06/17 0508 03/06/17 0508 Results 24 hrs Laboratory Tests Test 03/06/17 05:08 White Blood Count 9.0 # Red Blood Count 2.67 L Hemoglobin 8.4 L Hematocrit 25.2 L Mean Corpuscular Volume 94.4 Mean Corpuscular Hemoglobin 31.5 Mean Corpuscular Hemoglobin Concent 33.3 Red Cell Distribution Width 14.6 H Platelet Count 361 Mean Platelet Volume 10.9 H Neutrophils % 79.2 H Lymphocytes % 3.1 L Monocytes % 13.7 H Eosinophils % 2.5 Basophils % 0.4 Nucleated Red Blood Cells % 0.3 H Neutrophils # 7.2 Lymphocytes # 0.3 L Monocytes # 1.2 H Eosinophils # 0.2 Basophils # 0.0 Nucleated Red Blood Cells # 0.0 Sodium Level 132 L Potassium Level 4.5 Chloride Level 101 Carbon Dioxide Level 27 Anion Gap 9 Blood Urea Nitrogen 9 Creatinine 0.80 Glucose Level 119 Calcium Level 7.3 L Phosphorus Level 2.8 Magnesium Level 2.0 Albumin 2.6 L Medications Medications Current Medications Acetaminophen (Tylenol Tab) 650 mg Q6H PRN PO PAIN LEVEL 1-3 OR FEVER Last administered on 02/18/17 20:47; Admin Dose 650 MG; Start 02/12/17 at 14:00 Oxycodone/ Acetaminophen (Percocet (5/ 325)) 1 tab Q6H PRN PO SEVERE PAIN LEVEL 7-10 Last administered on 03/04/17 05:51; Admin Dose 1 TAB; Start at 14:00 Bisacodyl (Dulcolax) 5 mg DAILY PRN PO CONSTIPATION; Start 02/12/17 at 14:00 Pantoprazole (Protonix Tab) 40 mg DAILY@06 PO Last administered on 03/06/17 06 :07; Admin Dose 40 MG; Start 02/13/17 at 06:00 Aspirin (Halfprin) 81 mg DAILY PO Last administered on 03/06/17 08:41; Admin Dose 81 MG; Start 02/13/17 at 09:00 Atorvastatin Calcium (Lipitor) 20 mg HS PO Last administered on 03/05/17 21:18 ; Admin Dose 20 MG; Start 02/12/17 at 21:00 Guaifenesin/ Dextromethorphan (Robitussin Dm Liquid Cup) 5 ml Q4H PRN PO cough Last administered on 03/06/17 06:11; Admin Dose 5 ML; Start 02/15/17 at 20:00 IV Flush (NS 10 ml) 10 ml PRN PRN IV IV PROTOCOL; Start 02/16/17 at 13:00 Cephalexin (Keflex) 500 mg BID PO Last administered on 02/20/17 21:19; Admin Dose 500 MG; Start 02/19/17 at 09:00; Status Future Hold Acetaminophen (Tylenol Tab) 650 mg Q4H PRN PO NON-CARDIAC PAIN LEVEL (1-3) Last administered on 03/02/17 21:03; Admin Dose 650 MG; Start 02/21/17 at 08: 30 Morphine Sulfate (morphine) 2 mg Q2H PRN IV FOR NON CARDIAC PAIN (4-10); Start 02/21/17 at 08:30 Al Hydrox/Mg Hydrox/Simethicone (Mag-Al Plus) 30 ml Q4H PRN PO GASTROINTESTINAL UPSET; Start 02/21/17 at 08:30 Miscellaneous Information (* Miscellaneous Pharmacy Order) DC all Lovenox, Hepari... ONCE XX ; Start 02/21/17 at 08:30 Phenol (Cepastat Lozenge) 1 lozenge Q4 PRN MT sore throat Last administered on 02/23/17 11:21; Admin Dose 1 LOZENGE; Start 02/22/17 at 14:30 Lisinopril (Zestril) 2.5 mg DAILY PO Last administered on 03/03/17 09:00; Admin Dose 2.5 MG; Start 02/24/17 at 09:00 Carvedilol (Coreg) 6.25 mg BID PO Last administered on 03/05/17 21:18; Admin Dose 6.25 MG; Start 02/27/17 at 21:00 Ondansetron HCl (Zofran Tab) 4 mg Q6H PRN PO NAUSEA AND/OR VOMITING Last administered on 03/06/17 08:41; Admin Dose 4 MG; Start 03/02/17 at 13:30 Digoxin (Digoxin) 0.125 mg DAILY@13 PO Last administered on 03/06/17 13:08; Admin Dose 0.125 MG; Start 03/03/17 at 13:00 Tramadol HCl (Ultram) 50 mg Q6H PRN PO pain Last administered on 03/05/17 22: 07; Admin Dose 50 MG; Start 03/04/17 at 10:00 Enoxaparin Sodium 60 mg 60 mg Q24H SC Last administered on 03/06/17 13:07; Admin Dose 60 MG; Start 03/05/17 at 13:30 Sodium Chloride (NS) 1,000 ml @ 50 mls/hr Q20H IV Last administered on 17:15; Admin Dose 50 MLS/HR; Start 03/05/17 at 14:00 ROXIE VELARDE Mar 06, 2017 22:18
[2017-03-06 23:27] VITALS: BP 128/58; RESP 20
[2017-03-07 02:00] VITALS: BP 113/55; RESP 20
[2017-03-07 02:19] VITALS: RESP 32
[2017-03-07] MEDS: GUAIFENESIN/DM 5ML CUP PO PRN ×2 (03:23→09:40)
[2017-03-07 03:43] VITALS: RESP 24
[2017-03-07] MEDS: PANTOPRAZOLE (EC) 40 MG TAB PO SCH (05:51)
[2017-03-07] MEDS: SOD CHLORIDE 0.9% 1,000 ML IV SCH (06:35)
[2017-03-07 07:39] VITALS: BP 131/61; RESP 18
[2017-03-07] MEDS: ALBUTEROL/IPRATROPIUM (NEB) 3 ML AMP HHN SCH ×2 (08:23→14:19)
[2017-03-07] MEDS: LISINOPRIL 5 MG TAB PO SCH (09:35)
[2017-03-07] MEDS: ASPIRIN (EC) 81 MG TAB PO SCH (09:36)
--- NOTE | 2017-03-07 10:03 | CONS ---
Date/Time of Note Date/Time of Note DATE: 03/07/17 TIME: 10:01 Assessment/Plan Assessment/Plan Additional Assessment/Plan 1.CHF-systolic acute on chronic - much better now, will monitor clinically - better fluid status now. 2. Cardiomyopathy - much better with BiV pacing - better EF with BiV pacing 3.ICD near EOL now s/p generator change - site look swell. 4.Pleural effusion- post Rx, better fluid status 5.Leukopenia 6.Met Breast CA - on Rx, outpt chemo planned 7. Hyponatremia-resolved 8. Renal failure 9. Hypotension-improved off pressors and tolerating anti-hypretenives 10.R pleural effusion s/p PLeur-x catheter placement 11. Dysphagia Consultation Date/Type/Reason Admit Date/Time Feb 12, 2017 at 09:06 Type of Consultation: cardiology Referring Provider: GARY CROSS MD 24 HR Interval Summary Free Text/Dictation NO acute events - off tele - BiV site looks well ROS: No fever, no chills, no nausea, no vomiting, no diarrhea/constipation No recent weight changes No chest pain, no PND, no orthopnea No dizziness, blurred vision No thirst, no heat or cold intolerance Exam/Review of Systems Vital Signs Vitals Vital Signs Date Time Temp Pulse Resp B/P Pulse Ox O2 Delivery O2 Flow Rate FiO2 03/07/17 08:23 96 5.0 03/07/17 08:23 106 32 Nasal Cannula 03/07/17 07:39 98.7 131/61 03/05/17 19:38 30 Intake and Output 03/06/17 03/06/17 03/07/17 15:00 23:00 07:00 Intake Total 650 ml Output Total 500 ml Balance 150 ml Exam General: WN/WD/NAD, AOx 3 HEENT: Unicetric/atraumatic/EOMI (follow commands) NECK: JVD elevated, no thyromegaly Lymph: no lymphadenopathy HEART: regular with no S3, II/ systolic murmur at apex, post battery change LUNGS: Coarse sounds ABD: soft, NT, ND, +BS : Intact Neuro: non focal SKIN: chronic changes EXT: trace edema Results Result Diagram: 03/06/17 0508 03/06/17 0508 Medications Medications Current Medications Acetaminophen (Tylenol Tab) 650 mg Q6H PRN PO PAIN LEVEL 1-3 OR FEVER Last administered on 02/18/17 20:47; Admin Dose 650 MG; Start 02/12/17 at 14:00 Oxycodone/ Acetaminophen (Percocet (5/ 325)) 1 tab Q6H PRN PO SEVERE PAIN LEVEL 7-10 Last administered on 03/04/17 05:51; Admin Dose 1 TAB; Start at 14:00 Bisacodyl (Dulcolax) 5 mg DAILY PRN PO CONSTIPATION; Start 02/12/17 at 14:00 Pantoprazole (Protonix Tab) 40 mg DAILY@06 PO Last administered on 03/07/17 05 :51; Admin Dose 40 MG; Start 02/13/17 at 06:00 Aspirin (Halfprin) 81 mg DAILY PO Last administered on 03/07/17 09:36; Admin Dose 81 MG; Start 02/13/17 at 09:00 Atorvastatin Calcium (Lipitor) 20 mg HS PO Last administered on 03/05/17 21:18 ; Admin Dose 20 MG; Start 02/12/17 at 21:00 Guaifenesin/ Dextromethorphan (Robitussin Dm Liquid Cup) 5 ml Q4H PRN PO cough Last administered on 03/07/17 09:40; Admin Dose 5 ML; Start 02/15/17 at 20:00 IV Flush (NS 10 ml) 10 ml PRN PRN IV IV PROTOCOL; Start 02/16/17 at 13:00 Cephalexin (Keflex) 500 mg BID PO Last administered on 02/20/17 21:19; Admin Dose 500 MG; Start 02/19/17 at 09:00; Status Future Hold Acetaminophen (Tylenol Tab) 650 mg Q4H PRN PO NON-CARDIAC PAIN LEVEL (1-3) Last administered on 03/02/17 21:03; Admin Dose 650 MG; Start 02/21/17 at 08: 30 Morphine Sulfate (morphine) 2 mg Q2H PRN IV FOR NON CARDIAC PAIN (4-10); Start 02/21/17 at 08:30 Al Hydrox/Mg Hydrox/Simethicone (Mag-Al Plus) 30 ml Q4H PRN PO GASTROINTESTINAL UPSET; Start 02/21/17 at 08:30 Miscellaneous Information (* Miscellaneous Pharmacy Order) DC all Lovenox, Hepari... ONCE XX ; Start 02/21/17 at 08:30 Phenol (Cepastat Lozenge) 1 lozenge Q4 PRN MT sore throat Last administered on 02/23/17 11:21; Admin Dose 1 LOZENGE; Start 02/22/17 at 14:30 Lisinopril (Zestril) 2.5 mg DAILY PO Last administered on 03/07/17 09:35; Admin Dose 2.5 MG; Start 02/24/17 at 09:00 Carvedilol (Coreg) 6.25 mg BID PO Last administered on 03/07/17 09:35; Admin Dose 6.25 MG; Start 02/27/17 at 21:00 Ondansetron HCl (Zofran Tab) 4 mg Q6H PRN PO NAUSEA AND/OR VOMITING Last administered on 03/06/17 08:41; Admin Dose 4 MG; Start 03/02/17 at 13:30 Digoxin (Digoxin) 0.125 mg DAILY@13 PO Last administered on 03/06/17 13:08; Admin Dose 0.125 MG; Start 03/03/17 at 13:00 Tramadol HCl (Ultram) 50 mg Q6H PRN PO pain Last administered on 03/05/17 22: 07; Admin Dose 50 MG; Start 03/04/17 at 10:00 Enoxaparin Sodium 60 mg 60 mg Q24H SC Last administered on 03/06/17 13:07; Admin Dose 60 MG; Start 03/05/17 at 13:30 Sodium Chloride (NS) 1,000 ml @ 50 mls/hr Q20H IV Last administered on 06:35; Admin Dose 50 MLS/HR; Start 03/05/17 at 14:00 STEFANY BOYCE MD Mar 07, 2017 10:03
[2017-03-07] MEDS: DIGOXIN 0.125 MG TAB PO SCH (13:00)
--- NOTE | 2017-03-07 13:41 | PN ---
Date/Time of Note Date/Time of Note DATE: 03/07/17 TIME: 13:40 Assessment/Plan VTE Prophylaxis VTE Prophylaxis Intervention: SCD's Lines/Catheters IV Catheter Type (from Nrsg): Peripheral IV Urinary Cath still in place: No Assessment/Plan Chief Complaint/Hosp Course assessment and plan Bilateral malignant pleural effusions, chronic Dysphasia, resolving Left upper extremity swelling, superficial DVT Tachycardia Hyponatremia, chronic Cardiomyopathy, acute on chronic congestive heart failure with ejection fraction 45% Metastatic breast cancer, with bone and pelvic metastases Anemia of chronic disease Acute kidney injury, resolved esophagitis 1. Dysphagia - GI on board and recommendations appreciated. On Reglan to help with motility and nausea with meals. Patient is s/p EGD with dilation. - Tolerating pureed diet with Boost - still experiencing nausea with meals but controlled with medications - Swallow study noted, no significant issues - Still refusing PEG placement at this time but may need to be addressed in the future 2. Bilateral pleural effusions, likely malignant - Pulmonology on board. pleurx cath drain Q3days, 500cc each side, 1000cc max when drained - Tolerated drainage, last done 03/05/17 - Continue on NC and wean as tolerating to keep saturations >90% 3. Swelling LUE - PICC in place and flushing but no blood return - shows superficial DVT - Apply warm compresses. pulses intact 4. Tachycardia - Cardiology on board and consultation appreciated - On Digoxin and coreg 5. Hyponatremia - Mostly likely secondary to dehydration - No acute symptoms - gentle IVF and monitor 6. Leukopenia-resolved 7. Cardiomyopathy, congestive heart failure, acute on chronic ejection fraction 45% - Cardiology on board and recommendations appreciated. - Continue statin and aspirin and coreg - ICD battery change done 8. 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 Tay, oncology, outpatient. - Palliative on board and appreciated consultation. Son requesting that Dr. Anderson not seek out family. They will ask for his assistance as needed. Dr. Anderson made aware 9. Anemia of chronic disease - currently stable - will continue monitoring 10. Acute kidney injury, resolved - Nephrology consultation appreciated. improvement in renal function and signed off case. Will reconsult if any issues 11. Disposition - SNF placement Problems: Exam/Review of Systems Vital Signs Vitals Vital Signs Date Time Temp Pulse Resp B/P Pulse Ox O2 Delivery O2 Flow Rate FiO2 03/07/17 08:23 96 5.0 03/07/17 08:23 106 32 Nasal Cannula 03/07/17 07:39 98.7 131/61 03/05/17 19:38 30 Intake and Output 03/06/17 03/06/17 03/07/17 15:00 23:00 07:00 Intake Total 650 ml Output Total 500 ml Balance 150 ml Results Result Diagram: 03/06/17 0508 03/06/17 0508 Medications Medications Current Medications Acetaminophen (Tylenol Tab) 650 mg Q6H PRN PO PAIN LEVEL 1-3 OR FEVER Last administered on 02/18/17 20:47; Admin Dose 650 MG; Start 02/12/17 at 14:00 Oxycodone/ Acetaminophen (Percocet (5/ 325)) 1 tab Q6H PRN PO SEVERE PAIN LEVEL 7-10 Last administered on 03/04/17 05:51; Admin Dose 1 TAB; Start at 14:00 Bisacodyl (Dulcolax) 5 mg DAILY PRN PO CONSTIPATION; Start 02/12/17 at 14:00 Pantoprazole (Protonix Tab) 40 mg DAILY@06 PO Last administered on 03/07/17 05 :51; Admin Dose 40 MG; Start 02/13/17 at 06:00 Aspirin (Halfprin) 81 mg DAILY PO Last administered on 03/07/17 09:36; Admin Dose 81 MG; Start 02/13/17 at 09:00 Atorvastatin Calcium (Lipitor) 20 mg HS PO Last administered on 03/05/17 21:18 ; Admin Dose 20 MG; Start 02/12/17 at 21:00 Guaifenesin/ Dextromethorphan (Robitussin Dm Liquid Cup) 5 ml Q4H PRN PO cough Last administered on 03/07/17 09:40; Admin Dose 5 ML; Start 02/15/17 at 20:00 IV Flush (NS 10 ml) 10 ml PRN PRN IV IV PROTOCOL; Start 02/16/17 at 13:00 Cephalexin (Keflex) 500 mg BID PO Last administered on 02/20/17 21:19; Admin Dose 500 MG; Start 02/19/17 at 09:00; Status Future Hold Acetaminophen (Tylenol Tab) 650 mg Q4H PRN PO NON-CARDIAC PAIN LEVEL (1-3) Last administered on 03/02/17 21:03; Admin Dose 650 MG; Start 02/21/17 at 08: 30 Morphine Sulfate (morphine) 2 mg Q2H PRN IV FOR NON CARDIAC PAIN (4-10); Start 02/21/17 at 08:30 Al Hydrox/Mg Hydrox/Simethicone (Mag-Al Plus) 30 ml Q4H PRN PO GASTROINTESTINAL UPSET; Start 02/21/17 at 08:30 Miscellaneous Information (* Miscellaneous Pharmacy Order) DC all Lovenox, Hepari... ONCE XX ; Start 02/21/17 at 08:30 Phenol (Cepastat Lozenge) 1 lozenge Q4 PRN MT sore throat Last administered on 02/23/17 11:21; Admin Dose 1 LOZENGE; Start 02/22/17 at 14:30 Lisinopril (Zestril) 2.5 mg DAILY PO Last administered on 03/07/17 09:35; Admin Dose 2.5 MG; Start 02/24/17 at 09:00 Carvedilol (Coreg) 6.25 mg BID PO Last administered on 03/07/17 09:35; Admin Dose 6.25 MG; Start 02/27/17 at 21:00 Ondansetron HCl (Zofran Tab) 4 mg Q6H PRN PO NAUSEA AND/OR VOMITING Last administered on 03/06/17 08:41; Admin Dose 4 MG; Start 03/02/17 at 13:30 Digoxin (Digoxin) 0.125 mg DAILY@13 PO Last administered on 03/06/17 13:08; Admin Dose 0.125 MG; Start 03/03/17 at 13:00 Tramadol HCl (Ultram) 50 mg Q6H PRN PO pain Last administered on 03/05/17 22: 07; Admin Dose 50 MG; Start 03/04/17 at 10:00 Enoxaparin Sodium 60 mg 60 mg Q24H SC Last administered on 03/06/17 13:07; Admin Dose 60 MG; Start 03/05/17 at 13:30 Sodium Chloride (NS) 1,000 ml @ 50 mls/hr Q20H IV Last administered on 06:35; Admin Dose 50 MLS/HR; Start 03/05/17 at 14:00 DIMA COVARRUBIAS Mar 07, 2017 13:41
[2017-03-07] MEDS ORDERED: METOCLOPRAMIDE 5 MG TAB PO PRN (14:00)
--- NOTE | 2017-03-07 15:02 | PN ---
Date/Time of Note Date/Time of Note DATE: 03/07/17 TIME: 15:01 Assessment/Plan VTE Prophylaxis VTE Prophylaxis Intervention: SCD's Lines/Catheters IV [facility] Type [facility]from [facility] Peripheral IV Urinary Cath still in place: No Assessment/Plan Chief Complaint/Hosp Course Chief Complaint/Hosp Course Dysphagia/improved EGD 02/27 Impression: Food impaction in mid-esophagus. Removed Narrowing the midesophagus which appears to be extrinsic. Post balloon dilatation to 18 mm. Moderate distal esophagitis. Otherwise normal EGD. Persistent nausea/improved Bilateral pleural effusions, likely malignant Pulmonary edema Leukopenia Metastatic breast cancer to bone and pelvis Anemia of chronic disease Acute kidney injury Cardiomyopathy, congestive heart failure, acute on chronic ejection fraction 45% , Plan: Continue present regimen Continue Reglan to 10 mg 3 times daily Continue Zofran as needed Encourage p.o. intake of supplements i.e. boost/Ensure Plan for d/c to SNF today Patient seen in collaboration with Dr. Chaves Subjective: Course reviewed with nursing staff Patient interviewed and examined All labs, imaging and other results reviewed Plan for d/c today to SNF Continue Reglan Continue Zofran as needed Encourage Ensure/boost preferentially due to increase nutritional value Son present more open to the possibility of PEG if she continues to be unable to maintain nutrition- in future Patient currently DNR PHYSICAL EXAMINATION: GENERAL: Frail, alert and oriented 3, no distress SKIN: No lesions, no stigmata chronic liver disease, no evidence of bleeding diathesis LYMPHATIC: No palpable lymphadenopathy. HEAD: Normocephalic, atraumatic, no tenderness. EYES: Pupils equal reactive to light and accommodation, full extraocular movements, sclera clear, non-icteric, no discharge. EARS/NOSE AND THROAT: Ears normal, nose normal, oropharynx normal NECK: Supple, no masses, thyroid normal, JVP within normal limits, carotids normal without bruits. CHEST: pleurx cath drain CARDIOVASCULAR: Heart: Regular rate and rhythm, no murmurs, gallops or rubs. Peripheral pulses present within normal limits, no cyanosis, clubbing or edemas. No pulsatile abdominal mass RESPIRATORY: Diminished, GASTROINTESTINAL AND LIVER: Abdomen: Soft, non tenderness, non-distended, no hernias, no masses, no organomegaly, no ascites, no guarding, no rebound tenderness, hypoactive bowel sounds. Rectal: Deferred. GENITOURINARY:Female genitalia within normal limits. EXTREMITIES: No cyanosis, clubbing or edema. Problems: Exam/Review of Systems Vital Signs Vitals Vital Signs Date Time Temp Pulse Resp B/P Pulse Ox O2 Delivery O2 Flow Rate FiO2 03/07/17 14:20 110 30 94 Nasal Cannula 3.0 03/07/17 07:39 98.7 131/61 03/05/17 19:38 30 Intake and Output 03/06/17 03/06/17 03/07/17 15:00 23:00 07:00 Intake Total 650 ml Output Total 500 ml Balance 150 ml Results Result Diagram: 03/06/17 0508 03/06/17 0508 Medications Medications Current Medications Acetaminophen (Tylenol Tab) 650 mg Q6H PRN PO PAIN LEVEL 1-3 OR FEVER Last administered on 02/18/17 20:47; Admin Dose 650 MG; Start 02/12/17 at 14:00 Oxycodone/ Acetaminophen (Percocet (5/ 325)) 1 tab Q6H PRN PO SEVERE PAIN LEVEL 7-10 Last administered on 03/04/17 05:51; Admin Dose 1 TAB; Start at 14:00 Bisacodyl (Dulcolax) 5 mg DAILY PRN PO CONSTIPATION; Start 02/12/17 at 14:00 Pantoprazole (Protonix Tab) 40 mg DAILY@06 PO Last administered on 03/07/17 05 :51; Admin Dose 40 MG; Start 02/13/17 at 06:00 Aspirin (Halfprin) 81 mg DAILY PO Last administered on 03/07/17 09:36; Admin Dose 81 MG; Start 02/13/17 at 09:00 Atorvastatin Calcium (Lipitor) 20 mg HS PO Last administered on 03/05/17 21:18 ; Admin Dose 20 MG; Start 02/12/17 at 21:00 Guaifenesin/ Dextromethorphan (Robitussin Dm Liquid Cup) 5 ml Q4H PRN PO cough Last administered on 03/07/17 09:40; Admin Dose 5 ML; Start 02/15/17 at 20:00 IV Flush (NS 10 ml) 10 ml PRN PRN IV IV PROTOCOL; Start 02/16/17 at 13:00 Cephalexin (Keflex) 500 mg BID PO Last administered on 02/20/17 21:19; Admin Dose 500 MG; Start 02/19/17 at 09:00; Status Future Hold Acetaminophen (Tylenol Tab) 650 mg Q4H PRN PO NON-CARDIAC PAIN LEVEL (1-3) Last administered on 03/02/17 21:03; Admin Dose 650 MG; Start 02/21/17 at 08: 30 Morphine Sulfate (morphine) 2 mg Q2H PRN IV FOR NON CARDIAC PAIN (4-10); Start 02/21/17 at 08:30 Al Hydrox/Mg Hydrox/Simethicone (Mag-Al Plus) 30 ml Q4H PRN PO GASTROINTESTINAL UPSET; Start 02/21/17 at 08:30 Miscellaneous Information (* Miscellaneous Pharmacy Order) DC all Lovenox, Hepari... ONCE XX ; Start 02/21/17 at 08:30 Phenol (Cepastat Lozenge) 1 lozenge Q4 PRN MT sore throat Last administered on 02/23/17 11:21; Admin Dose 1 LOZENGE; Start 02/22/17 at 14:30 Lisinopril (Zestril) 2.5 mg DAILY PO Last administered on 03/07/17 09:35; Admin Dose 2.5 MG; Start 02/24/17 at 09:00 Carvedilol (Coreg) 6.25 mg BID PO Last administered on 03/07/17 09:35; Admin Dose 6.25 MG; Start 02/27/17 at 21:00 Ondansetron HCl (Zofran Tab) 4 mg Q6H PRN PO NAUSEA AND/OR VOMITING Last administered on 03/06/17 08:41; Admin Dose 4 MG; Start 03/02/17 at 13:30 Digoxin (Digoxin) 0.125 mg DAILY@13 PO Last administered on 03/06/17 13:08; Admin Dose 0.125 MG; Start 03/03/17 at 13:00 Tramadol HCl (Ultram) 50 mg Q6H PRN PO pain Last administered on 03/05/17 22: 07; Admin Dose 50 MG; Start 03/04/17 at 10:00 Metoclopramide HCl (Reglan) 5 mg Q6H PRN PO NAUSEA AND/OR VOMITING; Start 03/07 at 14:00 DINA SORIANO Mar 07, 2017 15:02
--- NOTE | 2017-03-09 15:02 | PN ---
Date/Time of Note Date/Time of Note DATE: 03/09/17 TIME: 14:57 Assessment/Plan VTE Prophylaxis VTE Prophylaxis Intervention: heparin Lines/Catheters IV Catheter Type (from Nrs): Saline Lock Urinary Cath still in place: No Assessment/Plan Chief Complaint/Hosp Course Patient is an 81-year-old female with metastatic breast cancer with dual Pleurx catheters who presents as a transfer from the facility after near cardiac arrest after not receiving oxygen [facility]. Patient was recently discharged 2 days ago from [facility] and transferred to [facility]. # Acute on chronic respiratory failure -2/2 no o2 tanks at [facility], near code -transferred from other acute hospital, had ICU stay with bipap -stable on NC per usual -patient's family concerned regarding mental status, CT ordered and noted, no acute issues, chronic CVA seen, no focal deficit on neuro exam. #. Dysphagia - GI on board and recommendations appreciated. On Reglan to help with motility and nausea with meals. Patient is s/p EGD with dilation. - Tolerating pureed diet with Boost - still experiencing nausea with meals but controlled with medications - Swallow study noted, no significant issues - Still refusing PEG placement at this time but may need to be addressed in the future #. Bilateral pleural effusions, likely malignant - Pulmonology on board. pleurx cath drain Q3days, 500cc each side, 1000cc max when drained - Tolerated drainage, last done 03/05/17 - Continue on NC and wean as tolerating to keep saturations >90% #. Swelling LUE - PICC in place and flushing but no blood return - shows superficial DVT - Apply warm compresses. pulses intact #. Tachycardia - Cardiology on board and consultation appreciated - On Digoxin and coreg, but holding coreg due to BP #. Hyponatremia - Mostly likely secondary to dehydration - No acute symptoms - gentle IVF and monitor #. Leukopenia-resolved #. Cardiomyopathy, congestive heart failure, acute on chronic ejection fraction 45% - Cardiology on board and recommendations appreciated. - Continue statin and aspirin and coreg - ICD battery change done #. 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 Tay, oncology, outpatient. - Palliative on board and appreciated consultation. Son requesting that Dr. Anderson not seek out family. They will ask for his assistance as needed. Dr. Anderson made aware #. Anemia of chronic disease - currently stable - will continue monitoring #. Acute kidney injury, resolved - Nephrology consultation appreciated. improvement in renal function and signed off case. Will reconsult if any issues #. Disposition - stabilize, will need to eventually send to another SNF. Problems: Subjective 24 Hr Interval Summary Free Text/Dictation patient breathing better. no more sob. sons at bedside, all questions answered. Exam/Review of Systems Vital Signs Vitals Vital Signs Date Time Temp Pulse Resp B/P Pulse Ox O2 Delivery O2 Flow Rate FiO2 03/07/17 14:20 110 30 94 Nasal Cannula 3.0 03/07/17 07:39 98.7 131/61 03/05/17 19:38 30 Exam Physical exam General: Patient is laying in bed and answers questions appropriately Mentation: Patient is alert and oriented 4, Head: Normocephalic atraumatic Eyes: EOMI, pupils reactive to light Neck: Supple, nontender, midline Respiratory: coarse to auscultation bilaterally Cardiovascular: tachycardic, no obvious murmurs Gastrointestinal: non-tender to palpation, bowel sounds heard. Neurological: Moves all extremities spontaneously Skin: No new skin lesions Results Result Diagram: 03/06/17 0508 03/06/17 0508 DIMA COVARRUBIAS Mar 09, 2017 15:02
--- NOTE | 2017-03-09 15:02 | PN ---
Date/Time of Note Date/Time of Note DATE: 03/09/17 TIME: 14:57 Assessment/Plan VTE Prophylaxis VTE Prophylaxis Intervention: heparin Lines/Catheters IV Catheter Type (from Nrs): Saline Lock Urinary Cath still in place: No Assessment/Plan Chief Complaint/Hosp Course Patient is an 81-year-old female with metastatic breast cancer with dual Pleurx catheters who presents as a transfer from the facility after near cardiac arrest after not receiving oxygen at her residential facility. Patient was recently discharged 2 days ago from [facility] # Acute on chronic respiratory failure -2/2 no o2 tanks at [facility], near code -transferred from other acute hospital, had ICU stay with bipap -stable on NC per usual -patient's family concerned regarding mental status, CT ordered and noted, no acute issues, chronic CVA seen, no focal deficit on neuro exam. #. Dysphagia - GI on board and recommendations appreciated. On Reglan to help with motility and nausea with meals. Patient is s/p EGD with dilation. - Tolerating pureed diet with Boost - still experiencing nausea with meals but controlled with medications - Swallow study noted, no significant issues - Still refusing PEG placement at this time but may need to be addressed in the future #. Bilateral pleural effusions, likely malignant - Pulmonology on board. pleurx cath drain Q3days, 500cc each side, 1000cc max when drained - Tolerated drainage, last done 03/05/17 - Continue on NC and wean as tolerating to keep saturations >90% #. Swelling LUE - PICC in place and flushing but no blood return - shows superficial DVT - Apply warm compresses. pulses intact #. Tachycardia - Cardiology on board and consultation appreciated - On Digoxin and coreg, but holding coreg due to BP #. Hyponatremia - Mostly likely secondary to dehydration - No acute symptoms - gentle IVF and monitor #. Leukopenia-resolved #. Cardiomyopathy, congestive heart failure, acute on chronic ejection fraction 45% - Cardiology on board and recommendations appreciated. - Continue statin and aspirin and coreg - ICD battery change done #. 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 Tay, oncology, outpatient. - Palliative on board and appreciated consultation. Son requesting that Dr. Anderson not seek out family. They will ask for his assistance as needed. Dr. Anderson made aware #. Anemia of chronic disease - currently stable - will continue monitoring #. Acute kidney injury, resolved - Nephrology consultation appreciated. improvement in renal function and signed off case. Will reconsult if any issues #. Disposition - stabilize, will need to eventually send to another SNF. Problems: Subjective 24 Hr Interval Summary Free Text/Dictation patient breathing better. no more sob. sons at bedside, all questions answered. Exam/Review of Systems Vital Signs Vitals Vital Signs Date Time Temp Pulse Resp B/P Pulse Ox O2 Delivery O2 Flow Rate FiO2 03/07/17 14:20 110 30 94 Nasal Cannula 3.0 03/07/17 07:39 98.7 131/61 03/05/17 19:38 30 Exam Physical exam General: Patient is laying in bed and answers questions appropriately Mentation: Patient is alert and oriented 4, Head: Normocephalic atraumatic Eyes: EOMI, pupils reactive to light Neck: Supple, nontender, midline Respiratory: coarse to auscultation bilaterally Cardiovascular: tachycardic, no obvious murmurs Gastrointestinal: non-tender to palpation, bowel sounds heard. Neurological: Moves all extremities spontaneously Skin: No new skin lesions Results Result Diagram: 03/06/17 0508 03/06/17 0508 DIMA COVARRUBIAS Mar 09, 2017 15:02
--- NOTE | 2017-03-09 15:02 | PN ---
Date/Time of Note Date/Time of Note DATE: 03/09/17 TIME: 14:57 Assessment/Plan VTE Prophylaxis VTE Prophylaxis Intervention: heparin Lines/Catheters IV Catheter Type (from Nrs): Saline Lock Urinary Cath still in place: No Assessment/Plan Chief Complaint/Hosp Course Patient is an 81-year-old female with metastatic breast cancer with dual Pleurx catheters who presents as a transfer from the facility after near cardiac arrest [facility]. Patient was recently discharged 2 days ago from [facility] and [facility]. # Acute on chronic respiratory failure -2/2 no o2 tanks at [facility], near code -transferred from other acute hospital, had ICU stay with bipap -stable on NC per usual -patient's family concerned regarding mental status, CT ordered and noted, no acute issues, chronic CVA seen, no focal deficit on neuro exam. #. Dysphagia - GI on board and recommendations appreciated. On Reglan to help with motility and nausea with meals. Patient is s/p EGD with dilation. - Tolerating pureed diet with Boost - still experiencing nausea with meals but controlled with medications - Swallow study noted, no significant issues - Still refusing PEG placement at this time but may need to be addressed in the future #. Bilateral pleural effusions, likely malignant - Pulmonology on board. pleurx cath drain Q3days, 500cc each side, 1000cc max when drained - Tolerated drainage, last done 03/05/17 - Continue on NC and wean as tolerating to keep saturations >90% #. Swelling LUE - PICC in place and flushing but no blood return - shows superficial DVT - Apply warm compresses. pulses intact #. Tachycardia - Cardiology on board and consultation appreciated - On Digoxin and coreg, but holding coreg due to BP #. Hyponatremia - Mostly likely secondary to dehydration - No acute symptoms - gentle IVF and monitor #. Leukopenia-resolved #. Cardiomyopathy, congestive heart failure, acute on chronic ejection fraction 45% - Cardiology on board and recommendations appreciated. - Continue statin and aspirin and coreg - ICD battery change done #. 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 Tay, oncology, outpatient. - Palliative on board and appreciated consultation. Son requesting that Dr. Anderson not seek out family. They will ask for his assistance as needed. Dr. Anderson made aware #. Anemia of chronic disease - currently stable - will continue monitoring #. Acute kidney injury, resolved - Nephrology consultation appreciated. improvement in renal function and signed off case. Will reconsult if any issues #. Disposition - stabilize, will need to eventually send to another SNF. Problems: Subjective 24 Hr Interval Summary Free Text/Dictation patient breathing better. no more sob. sons at bedside, all questions answered. Exam/Review of Systems Vital Signs Vitals Vital Signs Date Time Temp Pulse Resp B/P Pulse Ox O2 Delivery O2 Flow Rate FiO2 03/07/17 14:20 110 30 94 Nasal Cannula 3.0 03/07/17 07:39 98.7 131/61 03/05/17 19:38 30 Exam Physical exam General: Patient is laying in bed and answers questions appropriately Mentation: Patient is alert and oriented 4, Head: Normocephalic atraumatic Eyes: EOMI, pupils reactive to light Neck: Supple, nontender, midline Respiratory: coarse to auscultation bilaterally Cardiovascular: tachycardic, no obvious murmurs Gastrointestinal: non-tender to palpation, bowel sounds heard. Neurological: Moves all extremities spontaneously Skin: No new skin lesions Results Result Diagram: 03/06/17 0508 03/06/17 0508 DIMA COVARRUBIAS Mar 09, 2017 15:02
== END 2017-03-07 18:55 | DRG 981 ==
LOC: E/R 07:00 → TEL 09:06 → ICU 02-16 06:03 → TEL 02-18 02:43 → MS1 02-23 22:10
PROVIDERS: ADMIT Hospitalist; ATTEND Hospitalist
PROC: 4A033R1 Measurement of Arterial Saturation, Peripheral, Percutaneous Approach (ICD-10-PCS; 2017-02-12)
PROC: 0B9P30Z Drainage of Left Pleura with Drainage Device, Percutaneous Approach (ICD-10-PCS; 2017-02-13)
PROC: BB4BZZZ Ultrasonography of Pleura (ICD-10-PCS; 2017-02-13)
PROC: 05H633Z Insertion of Infusion Device into Left Subclavian Vein, Percutaneous Approach (ICD-10-PCS; 2017-02-16)
PROC: B547ZZA Ultrasonography of Left Subclavian Vein, Guidance (ICD-10-PCS; 2017-02-16)
PROC: 0B9N30Z Drainage of Right Pleura with Drainage Device, Percutaneous Approach (ICD-10-PCS; 2017-02-17)
PROC: BB4BZZZ Ultrasonography of Pleura (ICD-10-PCS; 2017-02-17)
PROC: 0JPT0PZ Removal of Cardiac Rhythm Related Device from Trunk Subcutaneous Tissue and Fascia, Open Approach (ICD-10-PCS; 2017-02-21)
PROC: 0JH609Z Insertion of Cardiac Resynchronization Defibrillator Pulse Generator into Chest Subcutaneous Tissue and Fascia, Open Approach (ICD-10-PCS; principal; 2017-02-21 09:00)
PROC: 0D728ZZ Dilation of Middle Esophagus, Via Natural or Artificial Opening Endoscopic (ICD-10-PCS; 2017-02-27)
PROC: 0DC28ZZ Extirpation of Matter from Middle Esophagus, Via Natural or Artificial Opening Endoscopic (ICD-10-PCS; 2017-02-27)
PROC: BD11ZZZ Fluoroscopy of Esophagus (ICD-10-PCS; 2017-02-27)
DX: C79.51 Secondary malignant neoplasm of bone (principal); J96.01 Acute respiratory failure with hypoxia; R65.21 Severe sepsis with septic shock; I50.23 Acute on chronic systolic (congestive) heart failure; N17.9 Acute kidney failure, unspecified; A41.9 Sepsis, unspecified organism; J81.0 Acute pulmonary edema; J91.0 Malignant pleural effusion; T82.868A Thrombosis due to vascular prosthetic devices, implants and grafts, initial encounter; I42.9 Cardiomyopathy, unspecified; I82.622 Acute embolism and thrombosis of deep veins of left upper extremity; E87.1 Hypo-osmolality and hyponatremia; I13.0 Hypertensive heart and chronic kidney disease with heart failure and stage 1 through stage 4 chronic kidney disease, or unspecified chronic kidney disease; N39.0 Urinary tract infection, site not specified; R13.10 Dysphagia, unspecified; I95.9 Hypotension, unspecified; Z66 Do not resuscitate; D72.819 Decreased white blood cell count, unspecified; D63.8 Anemia in other chronic diseases classified elsewhere; K20.9 Esophagitis, unspecified; K22.2 Esophageal obstruction; T18.128A Food in esophagus causing other injury, initial encounter; I44.7 Left bundle-branch block, unspecified; Z45.02 Encounter for adjustment and management of automatic implantable cardiac defibrillator; R47.02 Dysphasia; R00.0 Tachycardia, unspecified; E86.0 Dehydration; R11.0 Nausea; I25.10 Atherosclerotic heart disease of native coronary artery without angina pectoris; Z90.12 Acquired absence of left breast and nipple; N18.9 Chronic kidney disease, unspecified; Z87.891 Personal history of nicotine dependence; Z79.82 Long term (current) use of aspirin; Z85.3 Personal history of malignant neoplasm of breast; Y84.8 Other medical procedures as the cause of abnormal reaction of the patient, or of later complication, without mention of misadventure at the time of the procedure
CPT/HCPCS: 33263; 33264; 36415; 36569; 36600; 71010; 71275; 74230; 75984; 75989; 76775; 76937; 76942; 80048; 80053; 80069; 81001; 81003; 82533; 82570; 82803; 83735; 83880; 84100; 84132; 84155; 84300; 84484; 85025; 85610; 87040; 87081; 87086; 89190; 92526; 92610; 93005; 93971; 94640; 94664; 96374; 96375; 96376; 97003; 97110; 97116; 97161; 97166; 97168; 97530; 97535; J1940; C1882; J0690; J0696; J1650; J2250; J2270; J2370; J2405; J2765; J3010; J3475; J3480; J7030; J7040; J7050; J7060; Q9967

== ENCOUNTER 2017-03-08 18:27 | Inpatient (IN) | payer OTHER ==
[~2017-03-08] VITALS: Ht 157.5 cm; Wt 58.4 kg
[~2017-03-08 18:27] MED LIST changes: -CARV3.1260 PO; +CARV6.2579 PO; +DIGO125T PO; +LISI-313 PO; +METO10TA96 PO; -PALB100C PO
[2017-03-08 22:50] VITALS: BP 117/65
[2017-03-08 23:03] VITALS: Ht 157.5 cm; Wt 58.4 kg
[2017-03-09] VITALS (11 sets, daily range): BP systolic 83–130; BP diastolic 52–67; PULSE 118–136; RESP 15–18
[2017-03-09] MEDS ORDERED: FUROSEMIDE 20 MG INJ IV ONE
[2017-03-09 00:07] LABS: AADO2 Arterial 164.7 mmHg (7.0-24.0); Allen Test ACCEPTAB; Arterial Base Excess -3.1 mmol/L (-3.0-3); Arterial COHb 0.3 % (0.0-3.0); Arterial Fraction of Oxyhgb 94.2 % (93.0-99.0); Arterial HCO3 21.6 mmol/L (22.0-26.0); Arterial MetHb 0.3 % (0.0-1.5); Arterial Total Hemglobin 11.8 g/dl (12.0-18.0); MODE NASAL CANNULA
[2017-03-09] MEDS ORDERED: LORAZEPAM 2 MG INJ IV ONE (02:30)
[2017-03-09] MEDS: ONDANSETRON INJ 8 MG in DEXTROSE 5% 50 ML IV PRN (04:09)
--- NOTE | 2017-03-09 06:44 | HP ---
Date/Time of Note Date/Time of Note DATE: 03/09/17 TIME: 06:25 Assessment/Plan VTE Prophylaxis VTE Prophylaxis Intervention: SCD's Lines/Catheters IV Catheter Type (from Nrs): Peripheral IV Assessment/Plan Assessment/Plan ASSESSMENT 81-year-old female with history of breast cancer with mets to the left hip bones , AICD placement, history of dysphagia status post GI dilation therapy and malignant effusion status post placement of Pleurx presents with shortness of breath with chest x-ray from outside hospital showing bilateral pleural effusion PLAN Supplemental oxygen, breathing treatments Check ABG Chest x-ray Unclamp the Pleurx Pulmonary consult HPI/ROS Admit Date/Time Admit Date/Time Mar 08, 2017 at 22:13 Hx of Present Illness This is an 81-year-old female with history of breast cancer with mets to the left hip bones, AICD placement, history of dysphagia status post GI dilation therapy and malignant effusion status post placement of Pleurx. Patient initially presented to [facility] with shortness of breath. Chest x-ray showed bilateral pleural effusion. She was initially requiring positive pressure ventilation. Patient was transferred to [facility] because of insurance reasons. Patient was just discharged from here 2 days ago. During last hospitalization, bilateral Pleurx catheter was placed, AICD battery was replaced and the patient underwent GI dilation procedure for dysphagia. When she presented here, she appeared lethargic and was in the respiratory distress. She was placed on oxygen was improvement in symptoms. PMH/Family/Social Past Surgical History Past Surgical Hx: endoscopy, other Social History Smoking Status: Never smoker Exam/Review of Systems Vital Signs Vitals Vital Signs Date Time Temp Pulse Resp B/P Pulse Ox O2 Delivery O2 Flow Rate FiO2 03/09/17 04:45 98.3 70 18 130/67 96 03/09/17 01:05 6.0 Exam Constitutional: other (Lethargic) Head: atraumatic, normocephalic Eyes: PERRL Respiratory: diminished breath sounds, other (Bilateral Pleurx catheter in place) Cardiovascular: nl pulses, regular rate and rhythm Gastrointestinal: soft Extremities: normal pulses Medications Medications Current Medications Ondansetron HCl/ Dextrose (Zofran Inj/D5W) 54 ml @ 108 mls/hr Q6H PRN IV NAUSEA AND/OR VOMITING Last administered on 03/09/17t 04:09; Admin Dose 108 MLS/ HR; Start 03/09/17 at 02:30 Metoclopramide HCl (Reglan) 10 mg Q6H PRN IV vomiting/nausea; Start 03/09/17 at 02:30 APRIL YUEN MD Mar 09, 2017 06:38
--- NOTE | 2017-03-09 07:49 | RADRPT ---
PROCEDURE: XR Chest. CLINICAL INDICATION: Dyspnea TECHNIQUE: AP Portable chest. COMPARISON: 05/07/2014 and 02/21/2017 chest x-ray FINDINGS: The soft tissues and bones are remarkable for left precordial combination AICD and pacemaker. The pa tient is status post right axillary. Remote right axillary surgery. The presence of a right-sided ch est tube and appearance of a left tube overlying the left upper quadrant of the abdomen is noted. Bi basilar atelectasis or consolidation is present with small bilateral pleural effusions. Mild vascula r calcifications are present of the thoracic aorta with mild widening in the mediastinum noted. Mild cardiomegaly is present.. No pneumothorax is present. IMPRESSION: 1. Left precordial combination AICD pacemaker with tubes as described above. 2. Status post remote right axillary surgery 3. Bibasilar consolidation or atelectasis and small bilateral pleural effusions increased from prior chest x-ray. 4. Mild cardiomegaly and atherosclerotic vascular disease with apparent widening of the mediastinum. Recommend follow-up as clinically indicated RPTAT: HDC .Esmer Domingo MD, MD Date Time Electronically viewed and signed by .Esmer Domingo MD, MD on 03/09/2017 07:48 .C/
[2017-03-09] MEDS ORDERED: LIDOCAINE 1% (MPF) 5 ML VIAL SC ONE (08:30)
[2017-03-09 08:49] LABS: ABNORMAL IP MESSAGE 1; BASOPHILS % 0.2 % (0.0-2.0); EOSINOPHILS % 0.1 % (0.0-7.0); HEMATOCRIT 30.4 % (37.0-47.0); LYMPHOCYTES # 0.2 10^3/ul (0.8-2.9); LYMPHOCYTES % 1.6 % (15.0-51.0); MEAN CORPUSCULAR HEMOGLOBIN 31.2 pg (29.0-33.0); MEAN CORPUSCULAR HGB CONC 32.9 g/dl (32.0-37.0); MEAN CORPUSCULAR VOLUME 94.7 fl (82.0-101.0); MEAN PLATELET VOLUME 10.5 fl (7.4-10.4); MONOCYTE # 1.4 10^3/ul (0.3-0.9); MONOCYTES % 11.8 % (0.0-11.0); NEUTROPHIL # 10.2 10^3/ul (1.6-7.5); PLATELET COUNT 408 10^3/UL (140-415); RED BLOOD COUNT 3.21 10^6/ul (4.20-5.40); RED CELL DISTRIBUTION WIDTH 15.1 % (11.5-14.5)
[2017-03-09 08:55] LABS: POSITIVE DIFF @See below
[2017-03-09 09:05] LABS: ALBUMIN 2.9 g/dl (3.3-4.9); ALBUMIN/GLOBULIN RATIO 0.9; BILIRUBIN,INDIRECT 0.1 mg/dl (0-1.1); BILIRUBIN,TOTAL 0.1 mg/dl (0.2-1.3); CALCIUM 8.6 mg/dl (8.4-10.2); CREATININE 0.95 mg/dl (0.44-1.00); MAGNESIUM 1.9 mg/dl (1.7-2.5); PHOSPHORUS 4.3 mg/dl (2.5-4.9); POTASSIUM 4.9 mmol/L (3.5-5.1); TOTAL PROTEIN 6.1 g/dl (6.1-8.1)
[2017-03-09] MEDS: SOD CHLORIDE 0.45% 1,000 ML IV SCH ×2 (12:28→15:53)
[2017-03-09] MEDS ORDERED: BISACODYL (EC) 5 MG TAB PO PRN (12:30)
[2017-03-09] MEDS ORDERED: NACL 0.9% 3 ML SYG IV SCH (12:30)
[2017-03-09] MEDS ORDERED: ONDANSETRON 4 MG TAB PO PRN (12:30)
[2017-03-09] MEDS: PANTOPRAZOLE (EC) 40 MG TAB PO SCH (13:11)
[2017-03-09] MEDS: ASPIRIN (EC) 81 MG TAB PO SCH (13:11)
[2017-03-09] MEDS: DIGOXIN 0.125 MG TAB PO SCH (13:12)
--- NOTE | 2017-03-09 13:43 | RADRPT ---
PROCEDURE: CT Brain without contrast. CLINICAL INDICATION: TIA, neurological deficit. TECHNIQUE: A CT of the brain was performed on multidetector high-resolution CT scanner utilizing a xial sections from the skull base through the vertex without contrast. The scan was reviewed in sof t tissue brain and high frequency resolution bone algorithm windows. Images were reviewed on a high -resolution PACS workstation. One or more the following does reduction techniques were utilized: Aut omated exposure control, adjustment of the mA/ or kV according to patient's size, or use of iterativ e reconstruction technique. The exam CTDI = 44.88 mGy and the DLP = 630.2 mGy-cm. COMPARISON: None available. FINDINGS: The ventricles and sulci are mildly prominent indicative of volume loss. There is no intracranial h emorrhage, mass effect or midline shift. No abnormal intra-axial or extra-axial fluid collections a re seen. The finley/white matter differentiation is preserved. 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 There is prominent retrocerebellar CSF space whi ch may represent carmen cisterna magna versus arachnoid cyst. There are mild scattered foci of hypoattenuation in the white matter, which are nonspecific in etiol ogy but likely reflect chronic small vessel ischemic changes. Small lacunar infarcts are noted in bi lateral lentiform nuclei and external capsules. There are mild intracranial vascular calcifications consistent with atherosclerosis. The visualized paranasal sinuses are essentially clear. There is th inning of bilateral lens indicative of prior lens replacement. IMPRESSION: 1. No acute intracranial hemorrhage, transcortical infarction or mass effect. 2. Mild intracranial atherosclerosis and chronic small vessel ischemic changes. 3. 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 4. Small lacunar infarcts in bilateral lentiform nuclei and external capsules. 5. Prominent retrocerebellar CSF space which may represent carmen cisterna magna versus arachnoid cy st. 6. Mild generalized cerebral volume loss. RPTAT: HH .Genaro Jimenez MD, MD Date Time Electronically viewed and signed by .Genaro Jimenez MD, MD on 03/09/2017 13:43 .N/
[2017-03-09] MEDS: ALBUTEROL/IPRATROPIUM (NEB) 3 ML AMP HHN SCH ×2 (13:53→20:06)
--- NOTE | 2017-03-09 14:10 | RADRPT ---
PROCEDURE: XR Chest. CLINICAL INDICATION: Shortness of breath. TECHNIQUE: Single frontal view. COMPARISON: 03/09/2017. 0732 hours. FINDINGS: There is patchy consolidation bilaterally, improved. Bilateral pleural effusions are smaller than s een previously. Bilateral chest tubes are once again noted. The heart is enlarged. There is a biventricular pacemaker/internal cardiac defibrillator. There is no pneumothorax. IMPRESSION: 1. Improved appearance of the lungs and smaller bilateral pleural effusions. 2. Otherwise no change from the chest radiograph earlier the same day. RPTAT: QQ .Amrit Eldridge MD, MD Date Time Electronically viewed and signed by .Amrit Eldridge MD, MD on 03/09/2017 14:09 .R/
--- NOTE | 2017-03-09 15:17 | PN ---
Date/Time of Note Date/Time of Note DATE: 03/09/17 TIME: 15:06 Assessment/Plan VTE Prophylaxis VTE Prophylaxis Intervention: heparin Lines/Catheters IV Catheter Type (from Nrsg): Peripheral IV Assessment/Plan Chief Complaint/Hosp Course Patient is a 81-year-old female who recently was discharged 2 days ago, however patient's [facility] unit on oxygen and patient went into acute respiratory failure, and was sent to local ICU, transferred for insurance reasons. #acute on chronic respiratory failure -2/2 not having o2 available at nursing facility -transferred from other acute care facility after ICU stay and on bipap -stable -pulm consulted #. Dysphagia - GI on board and recommendations appreciated. On Reglan to help with motility and nausea with meals. Patient is s/p EGD with dilation. - Tolerating pureed diet with Boost - still experiencing nausea with meals but controlled with medications - Swallow study noted, no significant issues - Still refusing PEG placement at this time but may need to be addressed in the future #. Bilateral pleural effusions, likely malignant - Pulmonology on board. pleurx cath drain Q3days, 500cc each side, 1000cc max when drained - Tolerated drainage - Continue on NC and wean as tolerating to keep saturations >90% #. Swelling LUE - PICC removed due to thrombus (superficial) caused by insertion -resolved, warm compresses as needed -no PICC in left -no IV access in R due to lymph node removal - attempt to use only oral medications, but will also try access with peripherals. #. Tachycardia - Cardiology on board and consultation appreciated - On Digoxin and coreg, but holding coreg due to hypotension #. Hyponatremia - Mostly likely secondary to dehydration - No acute symptoms - gentle IVF and monitor #. Leukopenia-resolved #. Cardiomyopathy, congestive heart failure, acute on chronic ejection fraction 45% - Cardiology on board and recommendations appreciated. - Continue statin and aspirin and coreg - ICD battery change done #. 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 Tay, oncology, outpatient. - Palliative on board and appreciated consultation. Son requesting that Dr. Anderson not seek out family. They will ask for his assistance as needed. Dr. Anderson made aware #. Anemia of chronic disease - currently stable - will continue monitoring #. Acute kidney injury, resolved -consult nephrology as needed #. Disposition -stabilize and eventually send back to SNF - patient's family aware of poor overall prognosis, yet want to continue care - patient was chemical code only last admission, full code for now, but will address chemical code tomorrow. Problems: Subjective 24 Hr Interval Summary Free Text/Dictation patient's sons at bedside, all questions answered Exam/Review of Systems Vital Signs Vitals Vital Signs Date Time Temp Pulse Resp B/P Pulse Ox O2 Delivery O2 Flow Rate FiO2 03/09/17 13:57 117 16 99 Nasal Cannula 6.0 03/09/17 11:59 98.3 83/57 Exam Physical exam General: Patient is laying in bed and answers questions appropriately Mentation: Patient is alert and oriented 4, Head: Normocephalic atraumatic Eyes: EOMI, pupils reactive to light Neck: Supple, nontender, midline Respiratory: coarse to auscultation bilaterally Cardiovascular: regular rate, no obvious murmurs Gastrointestinal: non-tender to palpation, bowel sounds heard. Neurological: Moves all extremities spontaneously Skin: No new skin lesions Results Result Diagram: 03/09/1782503/09/17 0826 Results 24 hrs Laboratory Tests Test 03/08/17 23:45 03/09/17 08:26 Blood Gas Specimen Source Blood arterial Arterial Blood Date Drawn 03/09/2017 12:00:16 AM Arterial Blood pH (Temp corrected) 7.380 Arterial Blood pCO2 (Temp correct) 37.3 Arterial Blood pO2 (Temp corrected) 77.6 L Arterial Blood HCO3 21.6 L Arterial Blood Base Excess -3.1 L Arterial Blood Oxygen Saturation 94.8 L Samm Test ACCEPTAB Arterial Blood Gas Puncture Site Left Radial Arterial Blood Carboxyhemoglobin 0.3 Arterial Blood Methemoglobin 0.3 Blood Gas A-a O2 Differential 164.7 H Oxyhemoglobin Percent 94.2 Total Hemoglobin 11.8 L Blood Gas Temperature 37.0 Blood Gas Actual Respiration Rate 22 Blood Gas Modality NASAL CANNULA FiO2 40.0 Blood Gas Notified Whom MM Blood Gas Notified Time 03/09/2017 12:07:49 AM White Blood Count 12.0 #H Red Blood Count 3.21 #L Hemoglobin 10.0 L Hematocrit 30.4 #L Mean Corpuscular Volume 94.7 Mean Corpuscular Hemoglobin 31.2 Mean Corpuscular Hemoglobin Concent 32.9 Red Cell Distribution Width 15.1 H Platelet Count 408 Mean Platelet Volume 10.5 H Neutrophils % 85.0 H Lymphocytes % 1.6 L Monocytes % 11.8 H Eosinophils % 0.1 Basophils % 0.2 Nucleated Red Blood Cells % 0.0 Neutrophils # 10.2 H Lymphocytes # 0.2 L Monocytes # 1.4 H Eosinophils # 0.0 Basophils # 0.0 Nucleated Red Blood Cells # 0.0 Sodium Level 135 Potassium Level 4.9 Chloride Level 100 Carbon Dioxide Level 25 Anion Gap 15 Blood Urea Nitrogen 22 H Creatinine 0.95 Glucose Level 150 Calcium Level 8.6 Phosphorus Level 4.3 Magnesium Level 1.9 Total Bilirubin 0.1 L Direct Bilirubin 0.00 Indirect Bilirubin 0.1 Aspartate Amino Transf (AST/SGOT) 48 H Alanine Aminotransferase (ALT/SGPT) 46 Alkaline Phosphatase 78 Total Protein 6.1 Albumin 2.9 L Globulin 3.20 Albumin/Globulin Ratio 0.90 Medications Medications Current Medications Ondansetron HCl/ Dextrose (Zofran Inj/D5W) 54 ml @ 108 mls/hr Q6H PRN IV NAUSEA AND/OR VOMITING Last administered on 03/09/17 04:09; Admin Dose 108 MLS/ HR; Start 03/09/17 at 02:30 Metoclopramide HCl (Reglan) 10 mg Q6H PRN IV vomiting/nausea; Start 03/09/17 at 02:30 Aspirin (Halfprin) 81 mg DAILY PO Last administered on 03/09/17 13:11; Admin Dose 81 MG; Start 03/09/17 at 12:30 Atorvastatin Calcium (Lipitor) 20 mg HS PO ; Start 03/09/17 at 21:00 Digoxin (Digoxin) 0.125 mg DAILY@13 PO Last administered on 03/09/17 13:12; Admin Dose 0.125 MG; Start 03/09/17 at 13:00 Pantoprazole 40 mg 40 mg DAILY PO Last administered on 03/09/17 13:11; Admin Dose 40 MG; Start 03/09/17 at 12:30 Sodium Chloride (1/2 NS) 1,000 ml @ 50 mls/hr Q20H IV ; Start 03/09/17 at 12:28 Lorazepam (Ativan) 0.5 mg Q8H PRN PO ANXIETY; Start 03/09/17 at 12:30 Ondansetron HCl (Zofran Tab) 4 mg Q6H PRN PO NAUSEA AND/OR VOMITING; Start 03/09/17 at 12:30 Acetaminophen/ Hydrocodone Bitart ([place] (5/325)) 1 tab Q6H PRN PO PAIN LEVEL 6 -10; Start 03/09/17 at 12:30 Bisacodyl (Dulcolax) 5 mg DAILY PRN PO CONSTIPATION; Start 03/09/17 at 12:30 DIMA COVARRUBIAS Mar 09, 2017 15:17
[2017-03-09] MEDS: ATORVASTATIN 20 MG TAB PO SCH (20:35)
[2017-03-09] MEDS ORDERED: DIGOXIN 500 MCG INJ IV ONE (21:30)
[2017-03-09 22:28] LABS: THYROID STIMULATING HORMONE 0.841 MIU/L (0.465-4.680)
--- NOTE | 2017-03-09 23:58 | CONS ---
DATE OF ADMISSION: 03/08/2017 DATE OF CONSULTATION: 03/09/2017 TYPE OF CONSULTATION: Cardiology. REASON FOR CONSULTATION: Cardiomyopathy, congestive heart failure. REQUESTING PHYSICIAN: Dr. Britton from the hospitalist service. HISTORY OF PRESENT ILLNESS: Ms. Bennett is an 81-year-old female with a history of cardiom yopathy with a decreased left ventricular ejection fraction, AICD status post recent generator arenas e, metastatic breast cancer with malignant effusions status post PleurX catheter during prior hospit al admission, dysphagia status post recent esophageal dilatation who had recently been discharged to nursing facility followup and had her brought back due to respiratory distress while at the custodial. Initially upon arrival, temperature of 98.2, blood pressure 117/65, pulse 127, saturating 94 % on 6 liters. The patient's labs revealed a white cell count of 12, hemoglobin 10.0, platelet coun t of 408, sodium 135, potassium 4.9, creatinine 0.9, BUN 22, AST 48, ALT 46. ABG revealing a pH of 7.38, a PaO2 77, pCO2 of 37. The patient underwent a chest x-ray revealing improved appearance of t he lungs and smaller bilateral pleural effusions. The patient additionally underwent an MRI reveali ng bibasilar consolidation, atelectasis, small bilateral pleural effusion increased from prior chest x-ray, mild cardiomegaly. The patient then underwent a head CT revealing no acute intracranial hem orrhage, mild intracranial atherosclerosis, old focal right parietal cortical infarct, small lacunar infarct, prominent retrocerebellar CSF space, mild generalized cerebral volume loss. The patient's electrocardiogram was taken from [facility]. It must have been taken prior to transfer back to [facility] which at that time revealed a rhythm most consistent with sinus tac hycardia, rate of 137, with normal axis, inferior Q's, anteroseptal Q's, nonspecific ST-T abnormalit ies diffusely. The patient has now been admitted to the floor and since admit to the floor, has had tachycardia in the low 100s and blood pressures in the 90s, high 80s. PAST MEDICAL HISTORY: As above in HPI. MEDICATIONS CURRENTLY IN THE HOSPITAL: 1. Lipitor 20 mg at bedtime. 2. DuoNebs. 3. Digoxin 0.125 mg daily. 4. Aspirin 81 mg daily. 5. Protonix 40 mg daily. 6. Ativan p.r.n. 7. Zofran p.r.n. 8. [place] p.r.n. 9. Dulcolax p.r.n. 10. IV fluid hydration at 50 mL an hour. 11. Zofran. 12. Reglan. ALLERGIES: NO KNOWN DRUG ALLERGIES. SOCIAL HISTORY: No tobacco, EtOH or illicit drug use. FAMILY HISTORY: No history of sudden cardiac or early CAD. REVIEW OF SYSTEMS: As above in HPI. CONSTITUTIONAL: No fevers, chills. PULMONARY: Shortness of breath, pleural effusions. CARDIOVASCULAR: Cardiomyopathy, AICD. GASTROINTESTINAL: Positive vomiting. GENITOURINARY: No hematuria. MUSCULOSKELETAL: Degenerative joint disease. PSYCHIATRIC: No documented psych history. NEUROLOGIC: No documented history of CVA. HEMATOLOGY/ONCOLOGY: Metastatic breast cancer. PHYSICAL EXAMINATION: VITAL SIGNS: Temperature of 98.8, blood pressure most recently 99/52, pulse 118, satting 94% on 4 l iters. GENERAL: The patient is alert, awake, in no acute distress. NECK: JVP approximately 10 cm of water. CHEST: Decreased breath sounds at the bases bilaterally. HEART: Tachycardic, regular rhythm, normal S1, increased S2, I/ systolic murmur, nondisplaced PMI . ABDOMEN: Positive bowel sounds, soft. EXTREMITIES: No pitting edema, 1+ pulses bilateral posterior tibial. LABORATORIES: As above in HPI. No further labs for my review at this time. IMAGING STUDIES: As above in HPI. No further imaging studies for my review at this time. ELECTROCARDIOGRAM: As above in HPI. No further electrocardiograms for my review at this time. IMPRESSION: 1. Congestive heart failure exacerbation. 2. History of cardiomyopathy, decreased left ventricular ejection fraction. 3. Status post recent automatic implantable cardioverter-defibrillator generator change. 4. Pleural effusions, recurrent, status post PleurX catheter. 5. Metastatic breast carcinoma. 6. Hypoxia, improved. 7. Tachycardia consistent with sinus tachycardia. RECOMMENDATIONS: 1. At this time, would maintain the patient on telemetry monitoring to follow rhythm and rate close ly. 2. Complete a rule out for myocardial infarction to ensure that the patient's constellation of symp toms are not the result or have not resulted in acute coronary syndrome, acute myocardial infarction . 3. Would resume the patient on baseline low-dose beta margarito as tolerated and continue the patient 's current aspirin. Follow the patient's volume status closely with draining of PleurX catheter as necessary. 4. Continue the patient's digoxin and will give IV push dose of digoxin in order to improve heart r ate acutely. 5. Continue the patient's current statin therapy. 6. Continue to follow the patient's rhythm closely on telemetry monitoring and follow the patient's blood pressure closely on gentle hydration as well as volume status closely on gentle hydration. Thank you for allowing me to take part in the care of this patient. I will continue to follow her weston friend closely with you, with further recommendations to be made as the patient progresses through [facility] clinical course. Dictated By: ROXIE KINCAID/TAURUS Conf#: [id number] DID#: [id number] CC: Nicanor Britton DO;*EndCC*
[2017-03-10] VITALS (12 sets, daily range): BP systolic 84–113; BP diastolic 43–58; PULSE 66–121; RESP 15–18
[2017-03-10] MEDS: ASPIRIN (EC) 81 MG TAB PO SCH (08:20)
[2017-03-10] MEDS: PANTOPRAZOLE (EC) 40 MG TAB PO SCH (08:20)
[2017-03-10] MEDS: ALBUTEROL/IPRATROPIUM (NEB) 3 ML AMP HHN SCH ×3 (08:55→20:25)
--- NOTE | 2017-03-10 12:25 | PN ---
Date/Time of Note Date/Time of Note DATE: 03/10/17 TIME: 12:23 Assessment/Plan VTE Prophylaxis VTE Prophylaxis Intervention: SCD's Lines/Catheters IV Catheter Type (from Nrsg): Peripheral IV Urinary Cath still in place: No Assessment/Plan Chief Complaint/Hosp Course Patient is a 81-year-old female who recently was discharged 2 days ago, however patient's retirement facility unit on oxygen and patient went into acute respiratory failure, and was sent to local ICU, transferred for insurance reasons. #acute on chronic respiratory failure -2/2 not having o2 available at nursing facility -transferred from other acute care facility after ICU stay and on bipap -stable -pulm consulted #elevated troponin -mild, cardiology aware -no chest pain #. Dysphagia - GI on board and recommendations appreciated. On Reglan to help with motility and nausea with meals. Patient is s/p EGD with dilation. - Tolerating pureed diet with Boost - still experiencing nausea with meals but controlled with medications - Swallow study noted, no significant issues - Still refusing PEG placement at this time but may need to be addressed in the future #. Bilateral pleural effusions, likely malignant - Pulmonology on board. pleurx cath drain Q3days, 500cc each side, 1000cc max when drained - Tolerated drainage - Continue on NC and wean as tolerating to keep saturations >90% #. Swelling LUE - PICC removed last admission due to thrombus (superficial) caused by insertion -resolved, warm compresses as needed -no PICC in left -no IV access in R due to lymph node removal - attempt to use only oral medications, but will also try access with peripherals. #. Tachycardia - Cardiology on board and consultation appreciated - On Digoxin and coreg, but holding coreg due to hypotension #. Hyponatremia - Mostly likely secondary to dehydration - No acute symptoms - gentle IVF and monitor #. Leukopenia-resolved #. Cardiomyopathy, congestive heart failure, acute on chronic ejection fraction 45% - Cardiology on board and recommendations appreciated. - Continue statin, asa, coreg as tolerated - ICD battery change done #. 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 Tay, oncology, outpatient. - Palliative on board and appreciated consultation. Son requesting that Dr. Anderson not seek out family. They will ask for his assistance as needed. Dr. Anderson made aware #. Anemia of chronic disease - currently stable - will continue monitoring #. Acute kidney injury, resolved -consult nephrology as needed #. Disposition -stabilize and eventually send back to SNF - patient's family aware of poor overall prognosis, yet want to continue care - patient was chemical code only last admission, full code for now. Problems: Subjective 24 Hr Interval Summary Free Text/Dictation no acute overnight events Exam/Review of Systems Vital Signs Vitals Vital Signs Date Time Temp Pulse Resp B/P Pulse Ox O2 Delivery O2 Flow Rate FiO2 03/10/17 08:33 120 03/10/17 08:30 Nasal Cannula 6.0 03/10/17 07:35 98.4 17 84/43 94 Intake and Output 03/09/17 03/09/17 03/10/17 14:59 22:59 06:59 Intake Total 250 ml 700 ml Output Total 2100 ml 300 ml Balance -1850 ml 400 ml Exam Physical exam General: Patient is laying in bed and answers questions appropriately Mentation: Patient is alert and oriented 4, Head: Normocephalic atraumatic Eyes: EOMI, pupils reactive to light Neck: Supple, nontender, midline Respiratory: coarse to auscultation bilaterally Cardiovascular: regular rate, no obvious murmurs Gastrointestinal: non-tender to palpation, bowel sounds heard. Neurological: Moves all extremities spontaneously Skin: No new skin lesions Results Result Diagram: 03/09/1782503/09/17825 Results 24 hrs Laboratory Tests Test 03/09/17 21:23 03/10/17 00:29 B-Type Natriuretic Peptide 42007 H Thyroid Stimulating Hormone (TSH) 0.841 Troponin I 0.234 *H Medications Medications Current Medications Ondansetron HCl/ Dextrose (Zofran Inj/D5W) 54 ml @ 108 mls/hr Q6H PRN IV NAUSEA AND/OR VOMITING Last administered on 03/09/17 04:09; Admin Dose 108 MLS/ HR; Start 03/09/17 at 02:30 Metoclopramide HCl (Reglan) 10 mg Q6H PRN IV vomiting/nausea; Start 03/09/17 at 02:30 Aspirin (Halfprin) 81 mg DAILY PO Last administered on 03/10/17 08:20; Admin Dose 81 MG; Start 03/09/17 at 12:30 Atorvastatin Calcium (Lipitor) 20 mg HS PO Last administered on 03/09/17 20:35 ; Admin Dose 20 MG; Start 03/09/17 at 21:00 Digoxin (Digoxin) 0.125 mg DAILY@13 PO Last administered on 03/09/17 13:12; Admin Dose 0.125 MG; Start 03/09/17 at 13:00 Pantoprazole 40 mg 40 mg DAILY PO Last administered on 03/10/17 08:20; Admin Dose 40 MG; Start 03/09/17 at 12:30 Sodium Chloride (1/2 NS) 1,000 ml @ 50 mls/hr Q20H IV Last administered on 15:53; Admin Dose 50 MLS/HR; Start 03/09/17 at 12:28 Lorazepam (Ativan) 0.5 mg Q8H PRN PO ANXIETY; Start 03/09/17 at 12:30 Ondansetron HCl (Zofran Tab) 4 mg Q6H PRN PO NAUSEA AND/OR VOMITING; Start 03/09/17 at 12:30 Acetaminophen/ Hydrocodone Bitart ([place] (5/325)) 1 tab Q6H PRN PO PAIN LEVEL 6 -10; Start 03/09/17 at 12:30 Bisacodyl (Dulcolax) 5 mg DAILY PRN PO CONSTIPATION; Start 03/09/17 at 12:30 Carvedilol (Coreg) 3.125 mg BID PO ; Start 03/09/17 at 21:30 DIMA COVARRUBIAS Mar 10, 2017 12:25
[2017-03-10] MEDS: DIGOXIN 0.125 MG TAB PO SCH (13:21)
[2017-03-10] MEDS: SOD CHLORIDE 0.45% 1,000 ML IV SCH (13:27)
[2017-03-10 14:04] LABS: ABNORMAL IP MESSAGE 1; BASOPHILS % 0.4 % (0.0-2.0); EOSINOPHILS # 0.5 10^3/ul (0.0-0.5); EOSINOPHILS % 5.2 % (0.0-7.0); HEMATOCRIT 26.5 % (37.0-47.0); HEMOGLOBIN 8.8 g/dl (12.0-16.0); LYMPHOCYTES # 0.2 10^3/ul (0.8-2.9); LYMPHOCYTES % 2.2 % (15.0-51.0); MEAN CORPUSCULAR HEMOGLOBIN 31.1 pg (29.0-33.0); MEAN CORPUSCULAR HGB CONC 33.2 g/dl (32.0-37.0); MEAN CORPUSCULAR VOLUME 93.6 fl (82.0-101.0); MEAN PLATELET VOLUME 10.5 fl (7.4-10.4); MONOCYTE # 1.4 10^3/ul (0.3-0.9); MONOCYTES % 15.7 % (0.0-11.0); NEUTROPHIL # 6.8 10^3/ul (1.6-7.5); PLATELET COUNT 337 10^3/UL (140-415); POSITIVE DIFF @See below; RED BLOOD COUNT 2.83 10^6/ul (4.20-5.40); RED CELL DISTRIBUTION WIDTH 15.4 % (11.5-14.5); WHITE BLOOD COUNT 9.1 10^3/ul (4.8-10.8)
--- NOTE | 2017-03-10 14:10 | RADRPT ---
Echocardiogram Report Patient Name: GEOVANNA CLEMENTE Gender: Female Date: 1935 Study Date: 10-Mar-2017 Call Center Nurse: Evelyn [facility] Location: 5564 Ref. Physician: ROXIE VELARDE Quality: Adequate Procedures: Transthoracic echocardiogram with complete 2D, M-Mode, and doppler examination. Indications: Congestive Heart Failure. 2D/M Mode Doppler Measurement Value Normal Ranges Measurement Value Normal Ranges LVIDd 2D 3.8 3.5 - 5.6 cm AV Peak Dexter 1.4 m/sec LVIDs 2D 2.6 2.1 - 4.1 cm AV Peak PG 8.0 mmHg FS 2D 30.3 % AI Peak PG 48.0 mmHg LVPWd 2D 1.0 0.6 - 1.1 cm AI Peak Dexter 3.5 m/sec IVSd 2D 1.0 0.6 - 1.1 cm AI PHT 246.0 msec IVS/LVPW 2D 1.0 LVOT Peak Dexter 0.9 m/sec AoR Diam 2D 2.7 2.0 - 3.7 cm LVOT Peak PG 3.0 mmHg LA/Ao 2D 1 0 - 1 MV E Peak Dexter 1.1 m/sec EDV 2D 54.4 cm3 MV Decel Time 99 msec ESV 2D 18.4 cm3 TR Peak Dexter 3.0 m/sec LA Dimen 2D 2.9 2.3 - 4.0 cm TR Peak PG 36.0 mmHg RVSP 39.0 mmHg Findings Left Ventricle: Normal left ventricular cavity size. Normal left ventricular wall thickness. Moderate global left ventricular systolic dysfunction. Ejection fraction is visually estimated at 35 %. Abnormal Diastolic Function. Right Ventricle: Normal right ventricular size. Normal right ventricular systolic function. Pacemaker right heart. Left Atrium: The left atrium is normal in size. Right Atrium: The right atrium is normal in size. Mitral Valve: Mild mitral leaflet calcification. Mild mitral annular calcification. Trace mitral regurgitation. Aortic Valve: No significant aortic stenosis. Aortic cusps appear mildly calcified. Mild to moderate aortic valve regurgitation. Tricuspid Valve: Normal appearance of the tricuspid valve. Estimated peak PA systolic pressure 39 mmHg. There is mild tricuspid regurgitation. Pulmonic Valve: Pulmonic valve not well visualized. There is trace pulmonic regurgitation. Pericardium: Trivial pericardial effusion. Aorta: Normal aortic root. IVC: Normal size and normal respiratory collapse consistent with normal right atrial pressure. Conclusions 1.Normal left ventricular cavity size. Normal left ventricular wall thickness. Moderate global left ventricular systolic dysfunction. Ejection fraction is visually estimated at 35 %. Abnormal Diastolic Function. 2.Mild mitral leaflet calcification. Mild mitral annular calcification. Trace mitral regurgitation. 3.No significant aortic stenosis. Aortic cusps appear mildly calcified. Mild to moderate aortic valve regurgitation. 4.Normal appearance of the tricuspid valve. Estimated peak PA systolic pressure 39 mmHg. There is mild tricuspid regurgitation. Electronically Signed By: Del Pineda 10-Mar-2017 14:09:26 -0800 Patient Name: GEOVANNA CLEMENTE Study Date: 10-Mar-[id number]
[2017-03-10 14:31] LABS: ALBUMIN 2.6 g/dl (3.3-4.9); ALBUMIN/GLOBULIN RATIO 1.08; BILIRUBIN,INDIRECT 0.2 mg/dl (0-1.1); BILIRUBIN,TOTAL 0.2 mg/dl (0.2-1.3); CALCIUM 7.8 mg/dl (8.4-10.2); CREATININE 0.93 mg/dl (0.44-1.00); POTASSIUM 4.2 mmol/L (3.5-5.1)
--- NOTE | 2017-03-10 15:02 | CONS ---
Date/Time of Note Date/Time of Note DATE: 03/10/17 TIME: 15:01 Assessment/Plan Assessment/Plan Additional Assessment/Plan 1. Congestive heart failure exacerbation- now with increaesd fluid satus, will diurese gently. 2. History of cardiomyopathy, decreased left ventricular ejection fraction- BiV ICD in place. 3. Status post recent automatic implantable cardioverter-defibrillator generator change - site looks well. 4. Pleural effusions, recurrent, status post PleurX catheter- will defer to surgical team. 5. Metastatic breast carcinoma - stage IV 6. Hypoxia, improved. 7. Tachycardia consistent with sinus tachycardia. Consultation Date/Type/Reason Admit Date/Time Mar 08, 2017 at 22:13 Initial Consult Date 24 HR Interval Summary Free Text/Dictation NO acute events - con't gentle diuresis- will adjust Rxa s needed ROS: No fever, no chills, no nausea, no vomiting, no diarrhea/constipation No recent weight changes No chest pain, no PND, no orthopnea + SOB No dizziness, blurred vision No thirst, no heat or cold intolerance Exam/Review of Systems Vital Signs Vitals Vital Signs Date Time Temp Pulse Resp B/P Pulse Ox O2 Delivery O2 Flow Rate FiO2 03/10/17 12:30 98.1 110 16 108/58 96 03/10/17 08:30 Nasal Cannula 6.0 Intake and Output 03/09/17 03/09/17 03/10/17 15:00 23:00 07:00 Intake Total 250 ml 700 ml Output Total 2100 ml 300 ml Balance -1850 ml 400 ml Exam General: WN/WD/NAD, AOx 2-3 less alert HEENT: Unicetric/atraumatic/EOMI (follows commands) NECK: JVD elevated, no thyromegaly Lymph: no lymphadenopathy HEART: regular with no S3, II/ systolic murmur at apex, ICD LUNGS: Coarse sounds ABD: soft, NT, ND, +BS : Intact Neuro: non focal SKIN: chronic changes EXT: trace edema Results Result Diagram: 03/10/17 1324 03/10/17 1324 Results 24 hrs Laboratory Tests Test 03/09/17 21:23 03/10/17 00:29 03/10/17 13:24 B-Type Natriuretic Peptide 48728 H Thyroid Stimulating Hormone (TSH) 0.841 Troponin I 0.234 *H 0.146 *H White Blood Count 9.1 # Red Blood Count 2.83 L Hemoglobin 8.8 L Hematocrit 26.5 L Mean Corpuscular Volume 93.6 Mean Corpuscular Hemoglobin 31.1 Mean Corpuscular Hemoglobin Concent 33.2 Red Cell Distribution Width 15.4 H Platelet Count 337 Mean Platelet Volume 10.5 H Neutrophils % 75.0 Lymphocytes % 2.2 L Monocytes % 15.7 H Eosinophils % 5.2 Basophils % 0.4 Nucleated Red Blood Cells % 0.0 Neutrophils # 6.8 Lymphocytes # 0.2 L Monocytes # 1.4 H Eosinophils # 0.5 Basophils # 0.0 Nucleated Red Blood Cells # 0.0 Sodium Level 130 L Potassium Level 4.2 Chloride Level 97 Carbon Dioxide Level 27 Anion Gap 10 # Blood Urea Nitrogen 16 Creatinine 0.93 Glucose Level 149 Calcium Level 7.8 L Total Bilirubin 0.2 Direct Bilirubin 0.00 Indirect Bilirubin 0.2 Aspartate Amino Transf (AST/SGOT) 47 H Alanine Aminotransferase (ALT/SGPT) 45 Alkaline Phosphatase 68 Total Protein 5.0 #L Albumin 2.6 L Globulin 2.40 Albumin/Globulin Ratio 1.08 Medications Medications Current Medications Ondansetron HCl/ Dextrose (Zofran Inj/D5W) 54 ml @ 108 mls/hr Q6H PRN IV NAUSEA AND/OR VOMITING Last administered on 03/09/17 04:09; Admin Dose 108 MLS/ HR; Start 03/09/17 at 02:30 Metoclopramide HCl (Reglan) 10 mg Q6H PRN IV vomiting/nausea; Start 03/09/17 at 02:30 Aspirin (Halfprin) 81 mg DAILY PO Last administered on 03/10/17 08:20; Admin Dose 81 MG; Start 03/09/17 at 12:30 Atorvastatin Calcium (Lipitor) 20 mg HS PO Last administered on 03/09/17 20:35 ; Admin Dose 20 MG; Start 03/09/17 at 21:00 Digoxin (Digoxin) 0.125 mg DAILY@13 PO Last administered on 03/10/17 13:21; Admin Dose 0.125 MG; Start 03/09/17 at 13:00 Pantoprazole 40 mg 40 mg DAILY PO Last administered on 03/10/17 08:20; Admin Dose 40 MG; Start 03/09/17 at 12:30 Sodium Chloride (1/2 NS) 1,000 ml @ 50 mls/hr Q20H IV Last administered on t 13:27; Admin Dose 50 MLS/HR; Start 03/09/17 at 12:28 Lorazepam (Ativan) 0.5 mg Q8H PRN PO ANXIETY; Start 03/09/17 at 12:30 Ondansetron HCl (Zofran Tab) 4 mg Q6H PRN PO NAUSEA AND/OR VOMITING; Start 03/09/17 at 12:30 Acetaminophen/ Hydrocodone Bitart ([place] (5/325)) 1 tab Q6H PRN PO PAIN LEVEL 6 -10; Start 03/09/17 at 12:30 Bisacodyl (Dulcolax) 5 mg DAILY PRN PO CONSTIPATION; Start 03/09/17 at 12:30 Carvedilol (Coreg) 3.125 mg BID PO ; Start 03/09/17 at 21:30 STEFANY BOYCE MD Mar 10, 2017 15:02
[2017-03-10] MEDS: ATORVASTATIN 20 MG TAB PO SCH (20:38)
[2017-03-11] VITALS (12 sets, daily range): BP systolic 90–154; BP diastolic 46–96; PULSE 109–116; RESP 16–18
[2017-03-11 06:21] LABS: ABNORMAL IP MESSAGE 1; BASOPHILS % 0.5 % (0.0-2.0); EOSINOPHILS # 0.5 10^3/ul (0.0-0.5); EOSINOPHILS % 5.5 % (0.0-7.0); HEMATOCRIT 27.4 % (37.0-47.0); HEMOGLOBIN 8.9 g/dl (12.0-16.0); LYMPHOCYTES # 0.3 10^3/ul (0.8-2.9); MEAN CORPUSCULAR HEMOGLOBIN 30.3 pg (29.0-33.0); MEAN CORPUSCULAR HGB CONC 32.5 g/dl (32.0-37.0); MEAN CORPUSCULAR VOLUME 93.2 fl (82.0-101.0); MEAN PLATELET VOLUME 10.5 fl (7.4-10.4); MONOCYTE # 1.3 10^3/ul (0.3-0.9); MONOCYTES % 15.2 % (0.0-11.0); NEUTROPHIL # 6.3 10^3/ul (1.6-7.5); NEUTROPHILS % 73.4 % (39.0-77.0); PLATELET COUNT 327 10^3/UL (140-415); RED BLOOD COUNT 2.94 10^6/ul (4.20-5.40); RED CELL DISTRIBUTION WIDTH 15.4 % (11.5-14.5); WHITE BLOOD COUNT 8.6 10^3/ul (4.8-10.8)
[2017-03-11 06:48] LABS: POSITIVE DIFF @See below
[2017-03-11 06:53] LABS: CALCIUM 8.1 mg/dl (8.4-10.2); CREATININE 0.89 mg/dl (0.44-1.00); MAGNESIUM 1.7 mg/dl (1.7-2.5); PHOSPHORUS 3.1 mg/dl (2.5-4.9); POTASSIUM 3.9 mmol/L (3.5-5.1)
[2017-03-11] MEDS: ALBUTEROL/IPRATROPIUM (NEB) 3 ML AMP HHN SCH ×3 (08:15→19:39)
[2017-03-11] MEDS: ASPIRIN (EC) 81 MG TAB PO SCH (09:36)
[2017-03-11] MEDS: PANTOPRAZOLE (EC) 40 MG TAB PO SCH (09:36)
--- NOTE | 2017-03-11 11:45 | PN ---
Date/Time of Note Date/Time of Note DATE: 03/11/17 TIME: 11:45 Assessment/Plan VTE Prophylaxis VTE Prophylaxis Intervention: LMWH Lines/Catheters IV Catheter Type (from Nrs): Saline Lock Urinary Cath still in place: No Assessment/Plan Assessment/Plan 1. acute on chronic respiratory failure 2/2 to no O2 at SNF -patient is currently stable on NC - Pulmonology on board and consultation appreciated. Will continue on NC and wean as tolerated to maintain O2 >90% 2. Elevated troponin -mild, cardiology aware -no chest pain 3. Dysphagia - GI on board and recommendations appreciated. On Reglan to help with motility and nausea with meals. Patient is s/p EGD with dilation. - Tolerating pureed diet with Boost - still experiencing nausea with meals but controlled with medications - Swallow study noted, no significant issues - Still refusing PEG placement at this time but may need to be addressed in the future 4. Bilateral pleural effusions, likely malignant - Pulmonology on board. pleurx cath drain Q3days, 500cc each side, 1000cc max when drained - Tolerated drainage - Continue on NC and wean as tolerating to keep saturations >90% 5. Tachycardia - Cardiology on board and consultation appreciated - On Digoxin and coreg 6. Hyponatremia - Mostly likely secondary to dehydration - No acute symptoms - gentle IVF and monitor 7. Cardiomyopathy, congestive heart failure, acute on chronic ejection fraction 45% - Cardiology on board and recommendations appreciated. - Continue statin, asa, coreg as tolerated - ICD battery change done 8. 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 Tay, oncology, outpatient. - Palliative on board and appreciated consultation. Son requesting that Dr. Anderson not seek out family. They will ask for his assistance as needed. Dr. Anderson made aware 9. Anemia of chronic disease - currently stable - will continue monitoring 10. Disposition - Consult placed to case management for assistance with SNF placement as patient will not be returning to previous location. Subjective 24 Hr Interval Summary Free Text/Dictation Patient states she is feeling weak but denies any worsening in respiratory status. No acute overnight events. Exam/Review of Systems Vital Signs Vitals Vital Signs Date Time Temp Pulse Resp B/P Pulse Ox O2 Delivery O2 Flow Rate FiO2 03/11/17 08:20 109 03/11/17 08:18 20 96 Nasal Cannula 4.0 03/11/17 08:01 97.6 99/51 Intake and Output 03/10/17 03/10/17 03/11/17 15:00 23:00 07:00 Intake Total 200 ml 240 ml Output Total 700 ml Balance -500 ml 240 ml Exam General: Patient in no acute distress, laying in bed and answers questions appropriately Mentation: Patient is alert and oriented 4, Head: Normocephalic atraumatic Eyes: EOMI, pupils reactive to light Neck: Supple, nontender, midline Respiratory: coarse to auscultation bilaterally Cardiovascular: regular rate, no obvious murmurs Gastrointestinal: non-tender to palpation, bowel sounds heard. Neurological: Moves all extremities spontaneously Results Result Diagram: 03/11/1748 03/11/1748 Results 24 hrs Laboratory Tests Test 03/10/17 13:24 03/11/17 05:48 White Blood Count 9.1 # 8.6 Red Blood Count 2.83 L 2.94 L Hemoglobin 8.8 L 8.9 L Hematocrit 26.5 L 27.4 L Mean Corpuscular Volume 93.6 93.2 Mean Corpuscular Hemoglobin 31.1 30.3 Mean Corpuscular Hemoglobin Concent 33.2 32.5 Red Cell Distribution Width 15.4 H 15.4 H Platelet Count 337 327 Mean Platelet Volume 10.5 H 10.5 H Neutrophils % 75.0 73.4 Lymphocytes % 2.2 L 3.0 L Monocytes % 15.7 H 15.2 H Eosinophils % 5.2 5.5 Basophils % 0.4 0.5 Nucleated Red Blood Cells % 0.0 0.0 Neutrophils # 6.8 6.3 Lymphocytes # 0.2 L 0.3 L Monocytes # 1.4 H 1.3 H Eosinophils # 0.5 0.5 Basophils # 0.0 0.0 Nucleated Red Blood Cells # 0.0 0.0 Sodium Level 130 L 134 L Potassium Level 4.2 3.9 Chloride Level 97 99 Carbon Dioxide Level 27 32 H Anion Gap 10 # 7 L Blood Urea Nitrogen 16 14 Creatinine 0.93 0.89 Glucose Level 149 113 Calcium Level 7.8 L 8.1 L Total Bilirubin 0.2 Direct Bilirubin 0.00 Indirect Bilirubin 0.2 Aspartate Amino Transf (AST/SGOT) 47 H Alanine Aminotransferase (ALT/SGPT) 45 Alkaline Phosphatase 68 Troponin I 0.146 *H Total Protein 5.0 #L Albumin 2.6 L Globulin 2.40 Albumin/Globulin Ratio 1.08 Phosphorus Level 3.1 Magnesium Level 1.7 Medications Medications Current Medications Ondansetron HCl/ Dextrose (Zofran Inj/D5W) 54 ml @ 108 mls/hr Q6H PRN IV NAUSEA AND/OR VOMITING Last administered on 03/09/17 04:09; Admin Dose 108 MLS/ HR; Start 03/09/17 at 02:30 Metoclopramide HCl (Reglan) 10 mg Q6H PRN IV vomiting/nausea; Start 03/09/17 at 02:30 Aspirin (Halfprin) 81 mg DAILY PO Last administered on 03/11/17 09:36; Admin Dose 81 MG; Start 03/09/17 at 12:30 Atorvastatin Calcium (Lipitor) 20 mg HS PO Last administered on 03/10/17 20: 38; Admin Dose 20 MG; Start 03/09/17 at 21:00 Digoxin (Digoxin) 0.125 mg DAILY@13 PO Last administered on 03/10/17 13:21; Admin Dose 0.125 MG; Start 03/09/17 at 13:00 Pantoprazole 40 mg 40 mg DAILY PO Last administered on 03/11/17 09:36; Admin Dose 40 MG; Start 03/09/17 at 12:30 Sodium Chloride (1/2 NS) 1,000 ml @ 50 mls/hr Q20H IV Last administered on 13:27; Admin Dose 50 MLS/HR; Start 03/09/17 at 12:28 Lorazepam (Ativan) 0.5 mg Q8H PRN PO ANXIETY; Start 03/09/17 at 12:30 Ondansetron HCl (Zofran Tab) 4 mg Q6H PRN PO NAUSEA AND/OR VOMITING; Start 03/09/17 at 12:30 Acetaminophen/ Hydrocodone Bitart ([place] (5/325)) 1 tab Q6H PRN PO PAIN LEVEL 6 -10; Start 03/09/17 at 12:30 Bisacodyl (Dulcolax) 5 mg DAILY PRN PO CONSTIPATION; Start 03/09/17 at 12:30 Carvedilol (Coreg) 3.125 mg BID PO Last administered on 03/11/17 09:36; Admin Dose 3.125 MG; Start 03/09/17 at 21:30 GARY CROSS MD Mar 11, 2017 11:45
[2017-03-11] MEDS: DIGOXIN 0.125 MG TAB PO SCH (12:18)
--- NOTE | 2017-03-11 14:00 | CONS ---
Date/Time of Note Date/Time of Note DATE: 03/11/17 TIME: 13:59 Assessment/Plan Assessment/Plan Additional Assessment/Plan 1. Congestive heart failure exacerbation- better fluid status now, improved breathing - con't gentle diuresis. 2. History of cardiomyopathy, decreased left ventricular ejection fraction- BiV ICD in place. Site look swell. 3. Status post recent automatic implantable cardioverter-defibrillator generator change - site looks well. 4. Pleural effusions, recurrent, status post PleurX catheter- will defer to surgical team. 5. Metastatic breast carcinoma - stage IV 6. Hypoxia, improved. 7. Tachycardia consistent with sinus tachycardia. Consultation Date/Type/Reason Admit Date/Time Mar 08, 2017 at 22:13 24 HR Interval Summary Free Text/Dictation No acute events - pt looks better today. ROS: No fever, no chills, no nausea, no vomiting, no diarrhea/constipation No recent weight changes No chest pain, no PND, no orthopnea + sob No dizziness, blurred vision No thirst, no heat or cold intolerance Exam/Review of Systems Vital Signs Vitals Vital Signs Date Time Temp Pulse Resp B/P Pulse Ox O2 Delivery O2 Flow Rate FiO2 03/11/17 12:35 109 03/11/17 11:50 98.1 17 105/52 99 03/11/17 08:18 Nasal Cannula 4.0 Intake and Output 03/10/17 03/10/17 03/11/17 15:00 23:00 07:00 Intake Total 200 ml 240 ml Output Total 700 ml Balance -500 ml 240 ml Exam General: WN/WD/NAD, AOx 2-3 HEENT: Unicetric/atraumatic/EOMI (follow commands) NECK: JVD elevated, no thyromegaly Lymph: no lymphadenopathy HEART: regular with no S3, II/ systolic murmur at apex, PMI L LUNGS: Coarse sounds ABD: soft, NT, ND, +BS : Intact Neuro: non focal SKIN: chronic changes EXT: trace edema -= better Results Result Diagram: 03/11/1748 03/11/17 0548 Results 24 hrs Laboratory Tests Test 03/11/17 05:48 White Blood Count 8.6 Red Blood Count 2.94 L Hemoglobin 8.9 L Hematocrit 27.4 L Mean Corpuscular Volume 93.2 Mean Corpuscular Hemoglobin 30.3 Mean Corpuscular Hemoglobin Concent 32.5 Red Cell Distribution Width 15.4 H Platelet Count 327 Mean Platelet Volume 10.5 H Neutrophils % 73.4 Lymphocytes % 3.0 L Monocytes % 15.2 H Eosinophils % 5.5 Basophils % 0.5 Nucleated Red Blood Cells % 0.0 Neutrophils # 6.3 Lymphocytes # 0.3 L Monocytes # 1.3 H Eosinophils # 0.5 Basophils # 0.0 Nucleated Red Blood Cells # 0.0 Sodium Level 134 L Potassium Level 3.9 Chloride Level 99 Carbon Dioxide Level 32 H Anion Gap 7 L Blood Urea Nitrogen 14 Creatinine 0.89 Glucose Level 113 Calcium Level 8.1 L Phosphorus Level 3.1 Magnesium Level 1.7 Medications Medications Current Medications Ondansetron HCl/ Dextrose (Zofran Inj/D5W) 54 ml @ 108 mls/hr Q6H PRN IV NAUSEA AND/OR VOMITING Last administered on 03/09/17 04:09; Admin Dose 108 MLS/ HR; Start 03/09/17 at 02:30 Metoclopramide HCl (Reglan) 10 mg Q6H PRN IV vomiting/nausea; Start 03/09/17 at 02:30 Aspirin (Halfprin) 81 mg DAILY PO Last administered on 03/11/17 09:36; Admin Dose 81 MG; Start 03/09/17 at 12:30 Atorvastatin Calcium (Lipitor) 20 mg HS PO Last administered on 03/10/17 20: 38; Admin Dose 20 MG; Start 03/09/17 at 21:00 Digoxin (Digoxin) 0.125 mg DAILY@13 PO Last administered on 03/11/17 12:18; Admin Dose 0.125 MG; Start 03/09/17 at 13:00 Pantoprazole 40 mg 40 mg DAILY PO Last administered on 03/11/17 09:36; Admin Dose 40 MG; Start 03/09/17 at 12:30 Sodium Chloride (1/2 NS) 1,000 ml @ 50 mls/hr Q20H IV Last administered on 13:27; Admin Dose 50 MLS/HR; Start 03/09/17 at 12:28 Lorazepam (Ativan) 0.5 mg Q8H PRN PO ANXIETY; Start 03/09/17 at 12:30 Ondansetron HCl (Zofran Tab) 4 mg Q6H PRN PO NAUSEA AND/OR VOMITING; Start 03/09/17 at 12:30 Acetaminophen/ Hydrocodone Bitart ([place] (5/325)) 1 tab Q6H PRN PO PAIN LEVEL 6 -10; Start 03/09/17 at 12:30 Bisacodyl (Dulcolax) 5 mg DAILY PRN PO CONSTIPATION; Start 03/09/17 at 12:30 Carvedilol (Coreg) 3.125 mg BID PO Last administered on 03/11/17t 09:36; Admin Dose 3.125 MG; Start 03/09/17 at 21:30 STEFANY BOYCE MD Mar 11, 2017 14:00
--- NOTE | 2017-03-11 14:53 | RADRPT ---
Vent Rate: 114 bpm RR Interval: 0 msec IA Interval: 120 msec QRS Duration: 120 msec QT Interval: 362 msec QTC Interval: 498 msec P-R-T [place]: 51 - 0 - 78 degrees Electronic ventricular pacemaker with atrial tracking No previous tracing available for comparison Electronically Signed By: Torsten Shelton [id number]
[2017-03-11] MEDS ORDERED: ENOXAPARIN 40 MG/0.4 ML SYG SC SCH (16:00)
[2017-03-11] MEDS: ENOXAPARIN 40 MG/0.4 ML SYG SC SCH (16:45)
[2017-03-11] MEDS: ATORVASTATIN 20 MG TAB PO SCH (20:59)
[2017-03-12] VITALS (12 sets, daily range): BP systolic 91–103; BP diastolic 46–56; PULSE 107–121; RESP 15–18
[2017-03-12] MEDS: SOD CHLORIDE 0.45% 1,000 ML IV SCH ×2 (00:28→20:28)
[2017-03-12] MEDS: ALBUTEROL/IPRATROPIUM (NEB) 3 ML AMP HHN SCH ×3 (08:00→20:58)
[2017-03-12 09:04] LABS: ABNORMAL IP MESSAGE 1; BASOPHILS % 0.5 % (0.0-2.0); EOSINOPHILS # 0.3 10^3/ul (0.0-0.5); EOSINOPHILS % 3.6 % (0.0-7.0); HEMATOCRIT 28.5 % (37.0-47.0); HEMOGLOBIN 9.4 g/dl (12.0-16.0); LYMPHOCYTES # 0.3 10^3/ul (0.8-2.9); LYMPHOCYTES % 2.9 % (15.0-51.0); MEAN CORPUSCULAR VOLUME 94.1 fl (82.0-101.0); MEAN PLATELET VOLUME 10.3 fl (7.4-10.4); MONOCYTE # 1.3 10^3/ul (0.3-0.9); MONOCYTES % 14.4 % (0.0-11.0); NEUTROPHIL # 6.7 10^3/ul (1.6-7.5); NEUTROPHILS % 76.3 % (39.0-77.0); PLATELET COUNT 322 10^3/UL (140-415); RED BLOOD COUNT 3.03 10^6/ul (4.20-5.40); RED CELL DISTRIBUTION WIDTH 15.5 % (11.5-14.5); WHITE BLOOD COUNT 8.7 10^3/ul (4.8-10.8)
[2017-03-12 09:05] LABS: POSITIVE DIFF @See below
[2017-03-12 09:27] LABS: ALBUMIN 2.5 g/dl (3.3-4.9); CALCIUM 8.2 mg/dl (8.4-10.2); CREATININE 0.88 mg/dl (0.44-1.00); MAGNESIUM 1.7 mg/dl (1.7-2.5); PHOSPHORUS 3.5 mg/dl (2.5-4.9)
[2017-03-12] MEDS: ASPIRIN (EC) 81 MG TAB PO SCH (09:45)
[2017-03-12] MEDS: ENOXAPARIN 40 MG/0.4 ML SYG SC SCH (09:45)
[2017-03-12] MEDS: PANTOPRAZOLE (EC) 40 MG TAB PO SCH (09:46)
--- NOTE | 2017-03-12 10:26 | PN ---
Date/Time of Note Date/Time of Note DATE: 03/12/17 TIME: 10:26 Assessment/Plan VTE Prophylaxis VTE Prophylaxis Intervention: SCD's Lines/Catheters IV Catheter Type (from Nrsg): Saline Lock Urinary Cath still in place: No Assessment/Plan Assessment/Plan 1. acute on chronic respiratory failure 2/2 to no O2 at SNF - patient is currently stable on NC - Will continue on NC and wean as tolerated to maintain O2 >90% - Pulmonology consulted and recommendations appreciated 2. Elevated troponin -mild, cardiology aware -no chest pain 3. Dysphagia - GI on board and recommendations appreciated. On Reglan to help with motility and nausea with meals. Patient is s/p EGD with dilation. - Tolerating pureed diet with Boost - Swallow study noted, no significant issues - Still refusing PEG placement at this time but may need to be addressed in the future 4. Bilateral pleural effusions, likely malignant - Pulmonology on board. pleurx cath drain Q3days, 500cc each side, 1000cc max when drained, drained today 03/12 - Tolerated drainage - Continue on NC and wean as tolerating to keep saturations >90% 5. Tachycardia - Cardiology on board and consultation appreciated - On Digoxin and coreg 6. Hyponatremia- stable - Mostly likely secondary to dehydration - No acute symptoms - gentle IVF and monitor 7. Cardiomyopathy, congestive heart failure, acute on chronic ejection fraction 45% - Cardiology on board and recommendations appreciated. - Continue statin, asa, coreg as tolerated - ICD battery change done 8. 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 Tay, oncology, outpatient. 9. Anemia of chronic disease - currently stable - will continue monitoring 10. Disposition - Consult placed to case management for assistance with SNF placement as patient will not be returning to previous location. Subjective 24 Hr Interval Summary Free Text/Dictation Patient states can tell her pleurx catheters need to be drained. Denies any new complaints and no acute overnight events. Exam/Review of Systems Vital Signs Vitals Vital Signs Date Time Temp Pulse Resp B/P Pulse Ox O2 Delivery O2 Flow Rate FiO2 03/12/17 08:02 97.6 116 17 101/53 91 03/11/17 20:00 Nasal Cannula 4.0 Intake and Output 03/11/17 03/11/17 03/12/17 14:59 22:59 06:59 Intake Total 600 ml 240 ml Balance 600 ml 240 ml Exam General: Patient in no acute distress, laying in bed and answers questions appropriately Mentation: Patient is alert and oriented 4, Head: Normocephalic atraumatic Eyes: EOMI, pupils reactive to light Neck: Supple, nontender, midline Respiratory: coarse to auscultation bilaterally Cardiovascular: regular rate, no obvious murmurs Gastrointestinal: non-tender to palpation, bowel sounds heard. Neurological: Moves all extremities spontaneously Results Result Diagram: 03/12/17 0853 03/12/17 0853 Results 24 hrs Laboratory Tests Test 03/12/17 08:53 White Blood Count 8.7 Red Blood Count 3.03 L Hemoglobin 9.4 L Hematocrit 28.5 L Mean Corpuscular Volume 94.1 Mean Corpuscular Hemoglobin 31.0 Mean Corpuscular Hemoglobin Concent 33.0 Red Cell Distribution Width 15.5 H Platelet Count 322 Mean Platelet Volume 10.3 Neutrophils % 76.3 Lymphocytes % 2.9 L Monocytes % 14.4 H Eosinophils % 3.6 Basophils % 0.5 Nucleated Red Blood Cells % 0.0 Neutrophils # 6.7 Lymphocytes # 0.3 L Monocytes # 1.3 H Eosinophils # 0.3 Basophils # 0.0 Nucleated Red Blood Cells # 0.0 Sodium Level 134 L Potassium Level 4.0 Chloride Level 98 Carbon Dioxide Level 31 Anion Gap 9 Blood Urea Nitrogen 12 Creatinine 0.88 Glucose Level 121 Calcium Level 8.2 L Phosphorus Level 3.5 Magnesium Level 1.7 Albumin 2.5 L Medications Medications Current Medications Ondansetron HCl/ Dextrose (Zofran Inj/D5W) 54 ml @ 108 mls/hr Q6H PRN IV NAUSEA AND/OR VOMITING Last administered on 03/09/17 04:09; Admin Dose 108 MLS/ HR; Start 03/09/17 at 02:30 Metoclopramide HCl (Reglan) 10 mg Q6H PRN IV vomiting/nausea; Start 03/09/17 at 02:30 Aspirin (Halfprin) 81 mg DAILY PO Last administered on 03/12/17 09:45; Admin Dose 81 MG; Start 03/09/17 at 12:30 Atorvastatin Calcium (Lipitor) 20 mg HS PO Last administered on 03/11/17 20: 59; Admin Dose 20 MG; Start 03/09/17 at 21:00 Digoxin (Digoxin) 0.125 mg DAILY@13 PO Last administered on 03/11/17 12:18; Admin Dose 0.125 MG; Start 03/09/17 at 13:00 Pantoprazole 40 mg 40 mg DAILY PO Last administered on 03/12/17 09:46; Admin Dose 40 MG; Start 03/09/17 at 12:30 Sodium Chloride (1/2 NS) 1,000 ml @ 50 mls/hr Q20H IV Last administered on 13:27; Admin Dose 50 MLS/HR; Start 03/09/17 at 12:28 Lorazepam (Ativan) 0.5 mg Q8H PRN PO ANXIETY; Start 03/09/17 at 12:30 Ondansetron HCl (Zofran Tab) 4 mg Q6H PRN PO NAUSEA AND/OR VOMITING; Start 03/09/17 at 12:30 Acetaminophen/ Hydrocodone Bitart ([place] (5/325)) 1 tab Q6H PRN PO PAIN LEVEL 6 -10; Start 03/09/17 at 12:30 Bisacodyl (Dulcolax) 5 mg DAILY PRN PO CONSTIPATION; Start 03/09/17 at 12:30 Carvedilol (Coreg) 3.125 mg BID PO Last administered on 03/12/17 09:46; Admin Dose 3.125 MG; Start 03/09/17 at 21:30 Enoxaparin Sodium (Lovenox) 40 mg DAILY SC Last administered on 03/12/17 09: 45; Admin Dose 40 MG; Start 03/11/17 at 17:00 GARY CROSS MD Mar 12, 2017 10:26
[2017-03-12] MEDS: ONDANSETRON INJ 8 MG in DEXTROSE 5% 50 ML IV PRN (12:57)
[2017-03-12] MEDS: DIGOXIN 0.125 MG TAB PO SCH (13:03)
--- NOTE | 2017-03-12 15:52 | CONS ---
Date/Time of Note Date/Time of Note DATE: 03/12/17 TIME: 15:49 Assessment/Plan Assessment/Plan Additional Assessment/Plan 1. Congestive heart failure exacerbation- better fluid status now, improved breathing - con't gentle diuresis. BETTER NOW. 2. History of cardiomyopathy, decreased left ventricular ejection fraction- BiV ICD in place. Site look swell. 3. Status post recent automatic implantable cardioverter-defibrillator generator change - site looks well. 4. Pleural effusions, recurrent, status post PleurX catheter- will defer to surgical team. 5. Metastatic breast carcinoma - stage IV - hematology follows, 6. Hypoxia, improved. 7. Tachycardia consistent with sinus tachycardia. Consultation Date/Type/Reason Admit Date/Time Mar 08, 2017 at 22:13 24 HR Interval Summary Free Text/Dictation NO acute events - con't to follow - stable overall. ROS: No fever, no chills, no nausea, no vomiting, no diarrhea/constipation No recent weight changes No chest pain, no PND, no orthopnea + SOB No dizziness, blurred vision No thirst, no heat or cold intolerance Exam/Review of Systems Vital Signs Vitals Vital Signs Date Time Temp Pulse Resp B/P Pulse Ox O2 Delivery O2 Flow Rate FiO2 03/12/17 12:02 97.8 110 18 91/52 93 03/12/17 08:00 Nasal Cannula 4.0 Intake and Output 03/11/17 03/11/17 03/12/17 15:00 23:00 07:00 Intake Total 600 ml 240 ml Balance 600 ml 240 ml Exam General: WN/WD/NAD, AOx 2-3 HEENT: Unicetric/atraumatic/EOMI (follow commands) NECK: JVD elevated, no thyromegaly Lymph: no lymphadenopathy HEART: regular with no S3, II/ systolic murmur at apex LUNGS: Coarse sounds ABD: soft, NT, ND, +BS : Intact Neuro: non focal SKIN: chronic changes EXT: trace edema Results Result Diagram: 03/12/1753 03/12/1753 Results 24 hrs Laboratory Tests Test 03/12/17 08:53 White Blood Count 8.7 Red Blood Count 3.03 L Hemoglobin 9.4 L Hematocrit 28.5 L Mean Corpuscular Volume 94.1 Mean Corpuscular Hemoglobin 31.0 Mean Corpuscular Hemoglobin Concent 33.0 Red Cell Distribution Width 15.5 H Platelet Count 322 Mean Platelet Volume 10.3 Neutrophils % 76.3 Lymphocytes % 2.9 L Monocytes % 14.4 H Eosinophils % 3.6 Basophils % 0.5 Nucleated Red Blood Cells % 0.0 Neutrophils # 6.7 Lymphocytes # 0.3 L Monocytes # 1.3 H Eosinophils # 0.3 Basophils # 0.0 Nucleated Red Blood Cells # 0.0 Sodium Level 134 L Potassium Level 4.0 Chloride Level 98 Carbon Dioxide Level 31 Anion Gap 9 Blood Urea Nitrogen 12 Creatinine 0.88 Glucose Level 121 Calcium Level 8.2 L Phosphorus Level 3.5 Magnesium Level 1.7 Albumin 2.5 L Medications Medications Current Medications Ondansetron HCl/ Dextrose (Zofran Inj/D5W) 54 ml @ 108 mls/hr Q6H PRN IV NAUSEA AND/OR VOMITING Last administered on 03/12/17 12:57; Admin Dose 108 MLS /HR; Start 03/09/17 at 02:30 Metoclopramide HCl (Reglan) 10 mg Q6H PRN IV vomiting/nausea; Start 03/09/17 at 02:30 Aspirin (Halfprin) 81 mg DAILY PO Last administered on 03/12/17 09:45; Admin Dose 81 MG; Start 03/09/17 at 12:30 Atorvastatin Calcium (Lipitor) 20 mg HS PO Last administered on 03/11/17 20: 59; Admin Dose 20 MG; Start 03/09/17 at 21:00 Digoxin (Digoxin) 0.125 mg DAILY@13 PO Last administered on 03/12/17 13:03; Admin Dose 0.125 MG; Start 03/09/17 at 13:00 Pantoprazole 40 mg 40 mg DAILY PO Last administered on 03/12/17 09:46; Admin Dose 40 MG; Start 03/09/17 at 12:30 Sodium Chloride (1/2 NS) 1,000 ml @ 50 mls/hr Q20H IV Last administered on 13:27; Admin Dose 50 MLS/HR; Start 03/09/17 at 12:28 Lorazepam (Ativan) 0.5 mg Q8H PRN PO ANXIETY; Start 03/09/17 at 12:30 Ondansetron HCl (Zofran Tab) 4 mg Q6H PRN PO NAUSEA AND/OR VOMITING; Start 03/09/17 at 12:30 Acetaminophen/ Hydrocodone Bitart ([place] (5/325)) 1 tab Q6H PRN PO PAIN LEVEL 6 -10; Start 03/09/17 at 12:30 Bisacodyl (Dulcolax) 5 mg DAILY PRN PO CONSTIPATION; Start 03/09/17 at 12:30 Carvedilol (Coreg) 3.125 mg BID PO Last administered on 03/12/17 09:46; Admin Dose 3.125 MG; Start 03/09/17 at 21:30 Enoxaparin Sodium (Lovenox) 40 mg DAILY SC Last administered on 03/12/17 09: 45; Admin Dose 40 MG; Start 03/11/17 at 17:00 STEFANY BOYCE MD Mar 12, 2017 15:52
[2017-03-12] MEDS: ATORVASTATIN 20 MG TAB PO SCH (20:52)
[2017-03-13] VITALS (12 sets, daily range): BP systolic 90–155; BP diastolic 50–66; PULSE 104–125; RESP 16–18
[2017-03-13] MEDS ORDERED: ALBUMIN HUMAN 25% 100 ML IV ONE (04:00)
[2017-03-13] MEDS ORDERED: SOD CHLORIDE 0.9% 250 ML IV ONE (04:00)
[2017-03-13] MEDS: MIDODRINE 5 MG TAB PO SCH ×4 (05:21→17:54)
[2017-03-13] MEDS: ALBUTEROL/IPRATROPIUM (NEB) 3 ML AMP HHN SCH ×3 (08:17→20:25)
[2017-03-13] MEDS ORDERED: MIDODRINE 5 MG TAB PO SCH (09:00)
[2017-03-13 09:04] LABS: ABNORMAL IP MESSAGE 1; BASOPHILS % 0.2 % (0.0-2.0); EOSINOPHILS # 0.1 10^3/ul (0.0-0.5); EOSINOPHILS % 0.7 % (0.0-7.0); HEMATOCRIT 25.4 % (37.0-47.0); HEMOGLOBIN 8.1 g/dl (12.0-16.0); LYMPHOCYTES # 0.2 10^3/ul (0.8-2.9); LYMPHOCYTES % 1.8 % (15.0-51.0); MEAN CORPUSCULAR HEMOGLOBIN 29.8 pg (29.0-33.0); MEAN CORPUSCULAR HGB CONC 31.9 g/dl (32.0-37.0); MEAN CORPUSCULAR VOLUME 93.4 fl (82.0-101.0); MONOCYTE # 1.4 10^3/ul (0.3-0.9); MONOCYTES % 11.1 % (0.0-11.0); NEUTROPHIL # 10.9 10^3/ul (1.6-7.5); NEUTROPHILS % 84.8 % (39.0-77.0); PLATELET COUNT 310 10^3/UL (140-415); RED BLOOD COUNT 2.72 10^6/ul (4.20-5.40); RED CELL DISTRIBUTION WIDTH 15.9 % (11.5-14.5); WHITE BLOOD COUNT 12.8 10^3/ul (4.8-10.8)
[2017-03-13 09:11] LABS: POSITIVE DIFF @See below
[2017-03-13] MEDS: HYDROCODONE/APAP (5/325) TAB PO PRN (09:16)
[2017-03-13] MEDS: ASPIRIN (EC) 81 MG TAB PO SCH (09:16)
[2017-03-13] MEDS: PANTOPRAZOLE (EC) 40 MG TAB PO SCH (09:16)
[2017-03-13] MEDS: ENOXAPARIN 40 MG/0.4 ML SYG SC SCH (09:20)
[2017-03-13 09:30] LABS: CALCIUM 7.8 mg/dl (8.4-10.2); CREATININE 0.96 mg/dl (0.44-1.00); MAGNESIUM 1.7 mg/dl (1.7-2.5); POTASSIUM 4.1 mmol/L (3.5-5.1)
[2017-03-13] MEDS: DIGOXIN 0.125 MG TAB PO SCH (12:18)
[2017-03-13] MEDS ORDERED: FUROSEMIDE 20 MG INJ IV SCH (13:30)
--- NOTE | 2017-03-13 14:15 | CONS ---
Date/Time of Note Date/Time of Note DATE: 03/13/17 TIME: 14:08 Assessment/Plan Assessment/Plan Chief Complaint/Hosp Course IMPRESSION: 1. Congestive heart failure exacerbation-systolic acute on chronic EF 35%by echo this admit 2. History of cardiomyopathy, decreased left ventricular ejection fraction. 35 % by echo this admit 3. Status post recent automatic implantable cardioverter-defibrillator generator change. 4. Pleural effusions, recurrent, status post PleurX catheter. 5. Metastatic breast carcinoma. 6. Hypoxia, improved. 7. Tachycardia consistent with sinus tachycardia. REcc: -Tele -continmue coreg -dose IVP digoxin -Wean off midodrine which is pure afterload in setting of systolic CHF -Continue lasix diuresis Problems: Consultation Date/Type/Reason Admit Date/Time Mar 08, 2017 at 22:13 Initial Consult Date 03/09/2017 Type of Consultation: cardiology Reason for Consultation cardiomyopathy Referring Provider: RADHA TAVARES Exam/Review of Systems Vital Signs Vitals Vital Signs Date Time Temp Pulse Resp B/P Pulse Ox O2 Delivery O2 Flow Rate FiO2 03/13/17 12:21 115 03/13/17 12:00 Simple Mask 03/13/17 11:39 98.0 16 90/54 96 03/13/17 08:18 2.0 Intake and Output 03/12/17 03/12/17 03/13/17 14:59 22:59 06:59 Intake Total 600 ml 300 ml Output Total 1000 ml Balance -1000 ml 600 ml 300 ml Exam Review of Systems: CONSTITUTIONAL: No fevers, chills. PULMONARY: No sob CARDIOVASCULAR: No chest pain/palpitations GASTROINTESTINAL: No nausea/vomiting. GENITOURINARY: No hematuria/dysuria. MUSCULOSKELETAL: No myagias/arthalgias. PSYCHIATRIC: The patient denies depression. NEUROLOGIC: No weakness Constitutional: alert, oriented Psych: no complaints Head: normocephalic ENMT: mucosa pink and moist Neck: jvd (9 cm water), supple Respiratory: clear to auscultation, other (pacer pocket covered by steri-strips ) Cardiovascular: regular rate and rhythm Gastrointestinal: non-tender, soft Musculoskeletal: muscle tone (normal) Extremities: edema (none) Neurological: other (No focal deficits) Results Result Diagram: 03/13/17 0734 03/13/17 0734 Results 24 hrs Laboratory Tests Test 03/13/17 07:34 White Blood Count 12.8 #H Red Blood Count 2.72 L Hemoglobin 8.1 L Hematocrit 25.4 L Mean Corpuscular Volume 93.4 Mean Corpuscular Hemoglobin 29.8 Mean Corpuscular Hemoglobin Concent 31.9 L Red Cell Distribution Width 15.9 H Platelet Count 310 Mean Platelet Volume 11.0 H Neutrophils % 84.8 H Lymphocytes % 1.8 L Monocytes % 11.1 H Eosinophils % 0.7 Basophils % 0.2 Nucleated Red Blood Cells % 0.0 Neutrophils # 10.9 H Lymphocytes # 0.2 L Monocytes # 1.4 H Eosinophils # 0.1 Basophils # 0.0 Nucleated Red Blood Cells # 0.0 Sodium Level 134 L Potassium Level 4.1 Chloride Level 97 Carbon Dioxide Level 30 Anion Gap 11 Blood Urea Nitrogen 13 Creatinine 0.96 Glucose Level 148 Calcium Level 7.8 L Phosphorus Level 4.0 Magnesium Level 1.7 Albumin 3.0 L Medications Medications Current Medications Ondansetron HCl/ Dextrose (Zofran Inj/D5W) 54 ml @ 108 mls/hr Q6H PRN IV NAUSEA AND/OR VOMITING Last administered on 03/12/17 12:57; Admin Dose 108 MLS /HR; Start 03/09/17 at 02:30 Metoclopramide HCl (Reglan) 10 mg Q6H PRN IV vomiting/nausea; Start 03/09/17 at 02:30 Aspirin (Halfprin) 81 mg DAILY PO Last administered on 03/13/17 09:16; Admin Dose 81 MG; Start 03/09/17 at 12:30 Atorvastatin Calcium (Lipitor) 20 mg HS PO Last administered on 03/12/17 20: 52; Admin Dose 20 MG; Start 03/09/17 at 21:00 Digoxin (Digoxin) 0.125 mg DAILY@13 PO Last administered on 03/13/17 12:18; Admin Dose 0.125 MG; Start 03/09/17 at 13:00 Pantoprazole 40 mg 40 mg DAILY PO Last administered on 03/13/17 09:16; Admin Dose 40 MG; Start 03/09/17 at 12:30 Sodium Chloride (1/2 NS) 1,000 ml @ 50 mls/hr Q20H IV Last administered on 11/ 10/17at 13:27; Admin Dose 50 MLS/HR; Start 03/09/17 at 12:28 Lorazepam (Ativan) 0.5 mg Q8H PRN PO ANXIETY; Start 03/09/17 at 12:30 Ondansetron HCl (Zofran Tab) 4 mg Q6H PRN PO NAUSEA AND/OR VOMITING; Start 03/09/17 at 12:30 Acetaminophen/ Hydrocodone Bitart ([place] (5/325)) 1 tab Q6H PRN PO PAIN LEVEL 6 -10 Last administered on 03/13/17 09:16; Admin Dose 1 TAB; Start 03/09/17 at 12:30 Bisacodyl (Dulcolax) 5 mg DAILY PRN PO CONSTIPATION; Start 03/09/17 at 12:30 Carvedilol (Coreg) 3.125 mg BID PO Last administered on 03/12/17 20:52; Admin Dose 3.125 MG; Start 03/09/17 at 21:30 Enoxaparin Sodium (Lovenox) 40 mg DAILY SC Last administered on 03/13/17 09: 20; Admin Dose 40 MG; Start 03/11/17 at 17:00 Midodrine (Proamatine) 5 mg TID@,, PO Last administered on 03/13/17 12: 04; Admin Dose 5 MG; Start 03/13/17 at 05:30 Furosemide (Lasix) 20 mg DAILY IV ; Start 03/13/17 at 13:30 ROXIE VELARDE 13, 2017 14:15
--- NOTE | 2017-03-13 14:34 | RADRPT ---
PROCEDURE: XR Chest. CLINICAL INDICATION: Shortness of breath. TECHNIQUE: Single frontal view. COMPARISON: 03/09/2017. FINDINGS: There is air space disease in the right mid and lower lung zones, worse than seen previously. The ri ght pleural effusion is also larger than seen previously. Mild left basilar atelectasis and small le ft pleural effusion are also worse than seen previously. The heart is enlarged. There is calcification in the aorta consistent with atherosclerosis. There is a dual lead permanent pacemaker/internal cardiac defibrillator entering via the left subcla vian vein. Surgical clips are present in the right axilla. There is a tunneled right pleural cathete r. There is no pneumothorax. IMPRESSION: 1. Worse appearance of the lung bases and larger bilateral pleural effusions. 2. No other change from the 03/09/2017 chest radiograph. RPTAT: QQ .Amrit Eldridge MD, Date Time Electronically viewed and signed by .Amrit Eldridge MD, on 03/13/2017 14:34 .R/
--- NOTE | 2017-03-13 15:01 | PN ---
Date/Time of Note Date/Time of Note DATE: 03/13/17 TIME: 14:52 Assessment/Plan VTE Prophylaxis VTE Prophylaxis Intervention: LMWH Lines/Catheters IV Catheter Type (from Nrsg): Saline Lock Urinary Cath still in place: No Assessment/Plan Assessment/Plan 1. acute on chronic respiratory failure 2/2 to no O2 at SNF - patient was experiencing coughing spells overnight and repeat CXR this am showed worsening b/l pleural effusions - Will continue on NC and wean as tolerated to maintain O2 >90% - Pulmonology consulted and recommendations appreciated. will drain pleurx caths today and tomorrow and then continue with drainage every other day 2. Elevated troponin -mild, cardiology aware -no chest pain 3. Dysphagia - GI reconsulted and recommendations appreciated. On Reglan to help with motility and nausea with meals. Patient is s/p EGD with dilation. Patient had episode of emesis follow PO intake but was tolerating Pureed diet with Boost - Swallow study noted, no significant issues - Still refusing PEG placement at this time but may need to be addressed in the future 4. Bilateral pleural effusions, likely malignant - Pulmonology on board. Will increase frequency of pleurx cath drain to Q2days, 500cc each side, 1000cc max when drained. Plans for drainage today as well as tomorrow - Continue on NC and wean as tolerating to keep saturations >90% 5. Tachycardia - Cardiology on board and consultation appreciated - On Digoxin and coreg 6. Hyponatremia- stable - Mostly likely secondary to dehydration - No acute symptoms - gentle IVF and monitor 7. Cardiomyopathy, congestive heart failure, acute on chronic ejection fraction 45% - Cardiology on board and recommendations appreciated. - Continue statin, asa, coreg as tolerated - ICD battery change done 8. 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 Merlos, oncology, outpatient. Spoke with him over the phone this am and [facility] will place a call to [facility]. [facility] patient is stage IV and not appropriate to continue chemotherapy at this time. Recommending Palliative care at this time. - Spoke with Family and they are not satisfied with plan and would like to continue to pursue treatment 9. Anemia of chronic disease - currently stable - will continue monitoring 10. Disposition - SNF placement once medically stable Subjective 24 Hr Interval Summary Free Text/Dictation Patient had a rough night last night secondary to constant coughing spells. BP was low this am but improved with IVF Exam/Review of Systems Vital Signs Vitals Vital Signs Date Time Temp Pulse Resp B/P Pulse Ox O2 Delivery O2 Flow Rate FiO2 03/13/17 12:21 115 03/13/17 12:00 Simple Mask 03/13/17 11:39 98.0 16 90/54 96 03/13/17 08:18 2.0 Intake and Output 03/12/17 03/12/17 03/13/17 14:59 22:59 06:59 Intake Total 600 ml 300 ml Output Total 1000 ml Balance -1000 ml 600 ml 300 ml Exam General: Patient in mild respiratory distress, laying in bed and answers questions appropriately Mentation: Patient is alert and oriented 4, Head: Normocephalic atraumatic Eyes: EOMI, pupils reactive to light Neck: Supple, nontender, midline Respiratory: crackles at bases bilaterally Cardiovascular: irregular rhythm, tachycardia, no obvious murmurs Gastrointestinal: non-tender to palpation, bowel sounds heard. Neurological: Moves all extremities spontaneously Results Result Diagram: 03/13/17 0734 03/13/17 0734 Results 24 hrs Laboratory Tests Test 03/13/17 07:34 White Blood Count 12.8 #H Red Blood Count 2.72 L Hemoglobin 8.1 L Hematocrit 25.4 L Mean Corpuscular Volume 93.4 Mean Corpuscular Hemoglobin 29.8 Mean Corpuscular Hemoglobin Concent 31.9 L Red Cell Distribution Width 15.9 H Platelet Count 310 Mean Platelet Volume 11.0 H Neutrophils % 84.8 H Lymphocytes % 1.8 L Monocytes % 11.1 H Eosinophils % 0.7 Basophils % 0.2 Nucleated Red Blood Cells % 0.0 Neutrophils # 10.9 H Lymphocytes # 0.2 L Monocytes # 1.4 H Eosinophils # 0.1 Basophils # 0.0 Nucleated Red Blood Cells # 0.0 Sodium Level 134 L Potassium Level 4.1 Chloride Level 97 Carbon Dioxide Level 30 Anion Gap 11 Blood Urea Nitrogen 13 Creatinine 0.96 Glucose Level 148 Calcium Level 7.8 L Phosphorus Level 4.0 Magnesium Level 1.7 Albumin 3.0 L Medications Medications Current Medications Ondansetron HCl/ Dextrose (Zofran Inj/D5W) 54 ml @ 108 mls/hr Q6H PRN IV NAUSEA AND/OR VOMITING Last administered on 03/12/17t 12:57; Admin Dose 108 MLS /HR; Start 03/09/17 at 02:30 Metoclopramide HCl (Reglan) 10 mg Q6H PRN IV vomiting/nausea; Start 03/09/17 at 02:30 Aspirin (Halfprin) 81 mg DAILY PO Last administered on 03/13/17 09:16; Admin Dose 81 MG; Start 03/09/17 at 12:30 Atorvastatin Calcium (Lipitor) 20 mg HS PO Last administered on 03/12/17 20: 52; Admin Dose 20 MG; Start 03/09/17 at 21:00 Digoxin (Digoxin) 0.125 mg DAILY@13 PO Last administered on 03/13/17 12:18; Admin Dose 0.125 MG; Start 03/09/17 at 13:00 Pantoprazole 40 mg 40 mg DAILY PO Last administered on 03/13/17 09:16; Admin Dose 40 MG; Start 03/09/17 at 12:30 Sodium Chloride (1/2 NS) 1,000 ml @ 50 mls/hr Q20H IV Last administered on 13:27; Admin Dose 50 MLS/HR; Start 03/09/17 at 12:28 Lorazepam (Ativan) 0.5 mg Q8H PRN PO ANXIETY; Start 03/09/17 at 12:30 Ondansetron HCl (Zofran Tab) 4 mg Q6H PRN PO NAUSEA AND/OR VOMITING; Start 03/09/17 at 12:30 Acetaminophen/ Hydrocodone Bitart ([place] (5/325)) 1 tab Q6H PRN PO PAIN LEVEL 6 -10 Last administered on 03/13/17 09:16; Admin Dose 1 TAB; Start 03/09/17 at 12:30 Bisacodyl (Dulcolax) 5 mg DAILY PRN PO CONSTIPATION; Start 03/09/17 at 12:30 Carvedilol (Coreg) 3.125 mg BID PO Last administered on 03/12/17 20:52; Admin Dose 3.125 MG; Start 03/09/17 at 21:30 Enoxaparin Sodium (Lovenox) 40 mg DAILY SC Last administered on 03/13/17 09: 20; Admin Dose 40 MG; Start 03/11/17 at 17:00 Midodrine (Proamatine) 5 mg TID@,13, PO Last administered on 03/13/17 12: 04; Admin Dose 5 MG; Start 03/13/17 at 05:30 Furosemide (Lasix) 20 mg DAILY IV Last administered on 03/13/17 14:38; Admin Dose 20 MG; Start 03/13/17 at 13:30 GARY CROSS MD Mar 13, 2017 15:00
[2017-03-13] MEDS: SOD CHLORIDE 0.45% 1,000 ML IV SCH (16:28)
[2017-03-13] MEDS: FUROSEMIDE 20 MG TAB PO SCH (17:54)
--- NOTE | 2017-03-13 19:18 | CONS ---
DATE OF ADMISSION: 03/08/2017 DATE OF CONSULTATION: 03/13/2017 PULMONARY CONSULTATION. REASON FOR CONSULT: Dyspnea Thank you, Dr. Lomeli, for this consultation. HISTORY OF PRESENT ILLNESS: This is an 81-year-old lady with history of metastatic breast cancer wi th mets to bone and bilateral pleural effusion, status post PleurX catheter placement, admitted with increasing shortness of breath, orthopnea, PND and hypoxemia from [facility] facility. The pa tient has PleurX catheter drained every third day. Imaging had demonstrated increasing pleural fluid and approximately 1000 mL drained every third day of drainage. She is on supplemental O2. Currently not receiving chemotherapy as an inpatient. Marvel choi with Dr. Merlos as an outpatient. PAST MEDICAL HISTORY: As above. MEDICATIONS: Per chart. ALLERGIES: NONE. SOCIAL HISTORY: Nonsmoker, no alcohol, no history of drug use. FAMILY HISTORY: Noncontributory. SYSTEMS REVIEW: A 12-point review of systems was negative other than that mentioned above. PHYSICAL EXAMINATION: GENERAL: Chronically ill appearing lady, comfortable at rest, talking in full and complete sentence s. VITAL SIGNS: Currently afebrile, pulse 98, blood pressure 90/54, O2 saturation 96% on 2 L nasal can nula. NECK: Supple. No JVD or lymphadenopathy. CARDIAC: S1, S2, no added sounds or murmurs. CHEST: Diminished air entry bilaterally. ABDOMEN: Soft, nontender. No guarding or rebound. EXTREMITIES: No cyanosis, clubbing. Edema +1. NEUROLOGIC: Generalized weakness. DIAGNOSTIC DATA: Chest x-ray demonstrates bilateral pleural effusions. IMPRESSION AND PLAN: Metastatic breast cancer with persistent recurrent right pleural effusions with Proteus catheter in place. The patient will require more frequent drainage of pleural effusions. I would recommend ining at least every other day. In addition, she should continue with her Lasix 20 mg IV. Consider increasing to 20 mg p.o. b.i.d. Overall prognosis remains guarded. She would benefit from physica l therapy, encourage out of bed. DVT and GI prophylaxis. Dictated By: STAN MAC MD SV/NTS Conf#: [id number] DID#: [id number] CC: STAN MAC MD;*EndCC*
[2017-03-13] MEDS: ATORVASTATIN 20 MG TAB PO SCH (21:07)
[2017-03-14] VITALS (17 sets, daily range): BP systolic 86–146; BP diastolic 50–69; PULSE 98–130; RESP 17–26
[2017-03-14] MEDS: METOCLOPRAMIDE 10 MG INJ IV PRN ×2 (02:10→23:48)
[2017-03-14] MEDS: ALBUTEROL/IPRATROPIUM (NEB) 3 ML AMP HHN PRN (02:23)
[2017-03-14] MEDS: LORAZEPAM 2 MG INJ IV PRN (03:09)
[2017-03-14] MEDS: SOD CHLORIDE 0.45% 1,000 ML IV SCH (06:46)
[2017-03-14] MEDS: ALBUTEROL/IPRATROPIUM (NEB) 3 ML AMP HHN SCH ×3 (08:11→20:22)
--- NOTE | 2017-03-14 09:22 | RADRPT ---
PROCEDURE: Chest radiograph CLINICAL INDICATION: Pneumonia. COMPARISON: Radiograph 05/07/2014. TECHNIQUE: Single frontal chest radiograph. FINDINGS: A right chest tube terminates along the mediastinal pleural of the mid lung. A left-sided chest tube coils at the lung base. Implantable cardioverter defibrillator in the left chest with leads terminating in the right atrium, right ventricle, and left ventricle. Hyperinflation with flattened diaphragms suggesting underlying chronic lung disease. Biapical pleural thickening, right more than left. Right mid and lower lung opacity which may represent effusion, atelectasis, and/or pneumonia. Small left pleural effusion with atelectasis. Surgical clips in the right axilla. Multiple old right-sided rib fractures. IMPRESSION: 1. Right basilar opacity, likely combination of effusion and atelectasis. 2. Small left pleural effusion. 3. Bibasilar chest tubes. RPTAT: PP Physician Sarina Date Time Electronically viewed and signed by Physician Sarina on 03/14/2017 09:22 /
[2017-03-14] MEDS: FUROSEMIDE 20 MG TAB PO SCH ×2 (09:50→17:49)
[2017-03-14] MEDS: ASPIRIN (EC) 81 MG TAB PO SCH (09:58)
[2017-03-14] MEDS: PANTOPRAZOLE (EC) 40 MG TAB PO SCH (09:58)
[2017-03-14] MEDS: ENOXAPARIN 40 MG/0.4 ML SYG SC SCH (09:58)
[2017-03-14] MEDS: MIDODRINE 5 MG TAB PO SCH ×3 (10:06→17:49)
--- NOTE | 2017-03-14 11:50 | CONS ---
Date/Time of Note Date/Time of Note DATE: 03/14/17 TIME: 11:48 Assessment/Plan Assessment/Plan Additional Assessment/Plan 1. Congestive heart failure exacerbation- better fluid status now, improved breathing - con't gentle diuresis. Now with recurrent pleural effusion - dispo per pulmonary. 2. History of cardiomyopathy, decreased left ventricular ejection fraction- BiV ICD in place. Site look swell. 3. Status post recent automatic implantable cardioverter-defibrillator generator change - site looks well. 4. Pleural effusions, recurrent, status post PleurX catheter- will defer to surgical team. DIFFICULT TO RX, likely CA recurrence. 5. Metastatic breast carcinoma - stage IV - hematology follows, 6. Hypoxia, improved. 7. Tachycardia consistent with sinus tachycardia. Consultation Date/Type/Reason Admit Date/Time Mar 08, 2017 at 22:13 Type of Consultation: cardiology Referring Provider: RADHA TAVARES 24 HR Interval Summary Free Text/Dictation Recurrent pleural effusion - will Rx per pulmonary eam BIV with good function. ROS: No fever, no chills, no nausea, no vomiting, no diarrhea/constipation No recent weight changes No chest pain, no PND, no orthopnea + SOB, malaise No dizziness, blurred vision No thirst, no heat or cold intolerance Exam/Review of Systems Vital Signs Vitals Vital Signs Date Time Temp Pulse Resp B/P Pulse Ox O2 Delivery O2 Flow Rate FiO2 03/14/17 11:40 98.4 120 26 97/54 96 03/14/17 09:51 Nasal Cannula 6.0 03/14/17 05:50 40 Intake and Output 03/13/17 03/13/17 03/14/17 15:00 23:00 07:00 Intake Total 1250 ml 650 ml Output Total 0 ml 3600 ml Balance 1250 ml -2950 ml Exam General: WN/WD/NAD, AOx 2-3 HEENT: Unicetric/atraumatic/EOMI (follow commands) NECK: JVD elevated, no thyromegaly Lymph: no lymphadenopathy HEART: regular with no S3, II/ systolic murmur at apex LUNGS: Coarse sounds, decrease motion ABD: soft, NT, ND, +BS : Intact Neuro: non focal SKIN: chronic changes EXT: trace edema Results Result Diagram: 03/13/17 0734 03/13/17 0734 Medications Medications Current Medications Ondansetron HCl/ Dextrose (Zofran Inj/D5W) 54 ml @ 108 mls/hr Q6H PRN IV NAUSEA AND/OR VOMITING Last administered on 03/12/17 12:57; Admin Dose 108 MLS /HR; Start 03/09/17 at 02:30 Metoclopramide HCl (Reglan) 10 mg Q6H PRN IV vomiting/nausea Last administered on 03/14/17 02:10; Admin Dose 10 MG; Start 03/09/17 at 02:30 Aspirin (Halfprin) 81 mg DAILY PO Last administered on 03/14/17 09:58; Admin Dose 81 MG; Start 03/09/17 at 12:30 Atorvastatin Calcium (Lipitor) 20 mg HS PO Last administered on 03/13/17 21: 07; Admin Dose 20 MG; Start 03/09/17 at 21:00 Digoxin 0.125 mg 0.125 mg DAILY@13 PO Last administered on 03/13/17 12:18; Admin Dose 0.125 MG; Start 03/09/17 at 13:00 Sodium Chloride (1/2 NS) 1,000 ml @ 50 mls/hr Q20H IV Last administered on 06:46; Admin Dose 50 MLS/HR; Start 03/09/17 at 12:28 Lorazepam (Ativan) 0.5 mg Q8H PRN PO ANXIETY; Start 03/09/17 at 12:30 Ondansetron HCl (Zofran Tab) 4 mg Q6H PRN PO NAUSEA AND/OR VOMITING; Start 03/09/17 at 12:30 Acetaminophen/ Hydrocodone Bitart ([place] (5/325)) 1 tab Q6H PRN PO PAIN LEVEL 6 -10 Last administered on 03/13/17 09:16; Admin Dose 1 TAB; Start 03/09/17 at 12:30 Bisacodyl (Dulcolax) 5 mg DAILY PRN PO CONSTIPATION; Start 03/09/17 at 12:30 Carvedilol (Coreg) 3.125 mg BID PO Last administered on 03/13/17 21:07; Admin Dose 3.125 MG; Start 03/09/17 at 21:30 Enoxaparin Sodium (Lovenox) 40 mg DAILY SC Last administered on 03/14/17 09: 58; Admin Dose 40 MG; Start 03/11/17 at 17:00 Midodrine (Proamatine) 5 mg TID@,, PO Last administered on 03/14/17 10: 06; Admin Dose 5 MG; Start 03/13/17 at 05:30 Lorazepam (Ativan) 0.25 mg Q8H PRN IV ANXIETY Last administered on 03/14/17 03:09; Admin Dose 0.25 MG; Start 03/14/17 at 03:00 Famotidine (Pepcid) 20 mg DAILY PO ; Start 03/15/17 at 09:00 STEFANY BOYCE MD Mar 14, 2017 11:50
[2017-03-14] MEDS: DIGOXIN 0.125 MG TAB PO SCH (12:46)
--- NOTE | 2017-03-14 14:15 | CONS ---
DATE OF ADMISSION: 03/08/2017 DATE OF CONSULTATION: 03/14/2017 TYPE OF CONSULTATION: Hematology/oncology. REASON FOR EVALUATION: Advanced metastatic breast cancer. HISTORY OF PRESENT ILLNESS: This is an 81-year-old female with history of breast cancer, A ICD placement, stage IV disease since 2013. The patient initially developed right-sided breast canc er, post-mastectomy and chemoradiation many years ago. Unfortunately, the cancer came back. Her in itial cancer was in [place] in 1998. The cancer 2014 came back with metastatic disease stage IV dise ase. I have been treating the patient over the past 4 years from 2013 until 2016 with hormonal bloc froylan and targeted treatments. The latest treatment was palbociclib tablets and Faslodex injection. The patient over the past couple of months showed disease progression, pleural effusion, shortness of breath, cough, pneumonia, infection. Of note, also the patient has AICD which was put in in 2010 . The patient has bilateral pigtail catheter in the pleural cavities bilaterally on the left and ri ght sides. The patient was discharged to a snf a couple of weeks ago, comes back with weak ness, fatigue, cough, shortness of breath, recurrent pleural effusions. Yesterday just 500 mL from each lung pleural cavity was drained. Bilateral pleural effusions with thoracentesis. Continue wit h suction and chest tubes. Currently, weak, tired at bedside. No active bleeding, no hematemesis, no melena. Getting albumin infusions per protocol with some diuretics. No active pain. PAST MEDICAL HISTORY: 1. Breast cancer in 1998, post-surgery, chemoradiation recurrent disease 2013. 2. Hyperlipidemia. 3. Atrial fibrillation. 4. Permanent pacemaker. FAMILY HISTORY: Hypertension, coronary artery disease. SOCIAL HISTORY: Does not smoke, does not drink. , has 3 adult supportive sons. LABORATORY DATA: Latest labs are as follows: White cell count 12,000, hemoglobin 8.5, hematocrit 2 5, platelets 310. PHYSICAL EXAMINATION: GENERAL: Looks mildly pale. No jaundice. LYMPH NODES: No supraclavicular nodes or axillary nodes. LUNGS: Decreased air entry bilaterally. HEART: Normal S1, S2. Pacemaker in the infraclavicular area. ABDOMEN: Mildly distended. ASSESSMENT AND PLAN: 1. An 81-year-old female with recurrent metastatic stage IV breast cancer since 2013. 2. Bilateral pleural effusions malignant in nature. Bilateral tubes for drainage. 3. Albumin per protocol to decrease the effusion and poor hemostatic balance. 4. Leukocytosis, likely reactive from cancer and inflammation. 5. Keep hemoglobin above 8, hematocrit above 24. 6. Keep platelets above 50,000. I discussed the management plan. Prognosis poor, and advanced sta ge IV metastatic breast cancer. Family in agreement at this time, supportive care, comfort measures . Dictated By: RADHA CRENSHAW/TAURUS Conf#: [id number] DID#: [id number]
--- NOTE | 2017-03-14 14:51 | PN ---
Date/Time of Note Date/Time of Note DATE: 03/14/17 TIME: 14:50 Assessment/Plan VTE Prophylaxis VTE Prophylaxis Intervention: LMWH Lines/Catheters IV [facility] Urinary Cath still in place: No Assessment/Plan Assessment/Plan 1. Acute on chronic respiratory failure - Patient was experiencing respiratory distress overnight and 900cc drained from each pleurx - Repeat CXR shows right basilar opacity, likely combination of effusion and atelectasis. small left pleural effusion - Will continue on NC and wean as tolerated to maintain O2 >90% - Pulmonology consulted and recommendations appreciated. will drain Pleurx Caths every other day 2. Elevated troponin -mild, cardiology aware -no chest pain 3. Dysphagia - GI reconsulted and recommendations appreciated. On Reglan to help with motility and nausea with meals. Patient is s/p EGD with dilation. Patient had episode of emesis follow PO intake but was tolerating Pureed diet with Boost - Swallow study noted, no significant issues 4. Bilateral pleural effusions, likely malignant - Pulmonology on board. Will increase frequency of pleurx cath drain to Q2days, 500cc each side, 1000cc max when drained. - Continue on NC and wean as tolerating to keep saturations >90% 5. Tachycardia - Cardiology on board and consultation appreciated - On Digoxin and coreg. Coreg held this am secondary to hypotension 6. Hyponatremia- stable - Mostly likely secondary to dehydration - No acute symptoms - gentle IVF and monitor 7. Cardiomyopathy, congestive heart failure, acute on chronic ejection fraction 45% - Cardiology on board and recommendations appreciated. - Continue statin, asa, coreg as tolerated - ICD battery change done 8. 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 Merlos, oncology, outpatient. States patient is stage IV and not appropriate to continue chemotherapy at this time. Recommending Palliative care at this time. - Spoke with Family and they are not satisfied with plan and would like to continue to pursue treatment once patient discharged 9. Anemia of chronic disease - currently stable - will continue monitoring 10. Disposition - SNF placement once medically stable Subjective 24 Hr Interval Summary Free Text/Dictation Patient was experiencing respiratory distress overnight and transitioned from NC to ventimask to BIPAP. CXR performed and 900 cc of pleural fluid drained from each pleurx catheter. Patient fatigued this am. Exam/Review of Systems Vital Signs Vitals Vital Signs Date Time Temp Pulse Resp B/P Pulse Ox O2 Delivery O2 Flow Rate FiO2 03/14/17 14:30 117 24 97 Nasal Cannula 5.0 03/14/17 14:30 40 03/14/17 11:40 98.4 97/54 Intake and Output 03/13/17 03/13/17 03/14/17 15:00 23:00 07:00 Intake Total 1250 ml 650 ml Output Total 0 ml 3600 ml Balance 1250 ml -2950 ml Exam General: Patient fatigued but respirations more steady. Laying in bed and answers questions appropriately Mentation: Patient is alert and oriented 4, Head: Normocephalic atraumatic Eyes: EOMI, pupils reactive to light Neck: Supple, nontender, midline Respiratory: crackles at bases bilaterally Cardiovascular: irregular rhythm, tachycardia, no obvious murmurs Gastrointestinal: non-tender to palpation, bowel sounds heard. Neurological: Moves all extremities spontaneously Results Result Diagram: 03/13/17 0734 03/13/17 0734 Medications Medications Current Medications Ondansetron HCl/ Dextrose (Zofran Inj/D5W) 54 ml @ 108 mls/hr Q6H PRN IV NAUSEA AND/OR VOMITING Last administered on 03/12/17 12:57; Admin Dose 108 MLS /HR; Start 03/09/17 at 02:30 Metoclopramide HCl (Reglan) 10 mg Q6H PRN IV vomiting/nausea Last administered on 03/14/17 02:10; Admin Dose 10 MG; Start 03/09/17 at 02:30 Aspirin (Halfprin) 81 mg DAILY PO Last administered on 03/14/17 09:58; Admin Dose 81 MG; Start 03/09/17 at 12:30 Atorvastatin Calcium (Lipitor) 20 mg HS PO Last administered on 03/13/17 21: 07; Admin Dose 20 MG; Start 03/09/17 at 21:00 Digoxin 0.125 mg 0.125 mg DAILY@13 PO Last administered on 03/14/17 12:46; Admin Dose 0.125 MG; Start 03/09/17 at 13:00 Sodium Chloride (1/2 NS) 1,000 ml @ 50 mls/hr Q20H IV Last administered on 06:46; Admin Dose 50 MLS/HR; Start 03/09/17 at 12:28 Lorazepam (Ativan) 0.5 mg Q8H PRN PO ANXIETY; Start 03/09/17 at 12:30 Ondansetron HCl (Zofran Tab) 4 mg Q6H PRN PO NAUSEA AND/OR VOMITING; Start 03/09/17 at 12:30 Acetaminophen/ Hydrocodone Bitart ([place] (5/325)) 1 tab Q6H PRN PO PAIN LEVEL 6 -10 Last administered on 03/13/17 09:16; Admin Dose 1 TAB; Start 03/09/17 at 12:30 Bisacodyl (Dulcolax) 5 mg DAILY PRN PO CONSTIPATION; Start 03/09/17 at 12:30 Carvedilol (Coreg) 3.125 mg BID PO Last administered on 03/13/17 21:07; Admin Dose 3.125 MG; Start 03/09/17 at 21:30 Enoxaparin Sodium (Lovenox) 40 mg DAILY SC Last administered on 03/14/17 09: 58; Admin Dose 40 MG; Start 03/11/17 at 17:00 Midodrine (Proamatine) 5 mg TID@,, PO Last administered on 03/14/17 12: 46; Admin Dose 5 MG; Start 03/13/17 at 05:30 Lorazepam (Ativan) 0.25 mg Q8H PRN IV ANXIETY Last administered on 03/14/17 03:09; Admin Dose 0.25 MG; Start 03/14/17 at 03:00 Famotidine (Pepcid) 20 mg DAILY PO ; Start 03/15/17 at 09:00 GARY CROSS MD Mar 14, 2017 14:51
[2017-03-14 15:22] LABS: ABNORMAL IP MESSAGE 1; BASOPHILS % 0.1 % (0.0-2.0); EOSINOPHILS # 0.1 10^3/ul (0.0-0.5); EOSINOPHILS % 0.3 % (0.0-7.0); HEMATOCRIT 28.1 % (37.0-47.0); HEMOGLOBIN 9.3 g/dl (12.0-16.0); LYMPHOCYTES # 0.3 10^3/ul (0.8-2.9); LYMPHOCYTES % 1.4 % (15.0-51.0); MEAN CORPUSCULAR HEMOGLOBIN 30.4 pg (29.0-33.0); MEAN CORPUSCULAR HGB CONC 33.1 g/dl (32.0-37.0); MEAN CORPUSCULAR VOLUME 91.8 fl (82.0-101.0); MEAN PLATELET VOLUME 10.2 fl (7.4-10.4); MONOCYTE # 1.5 10^3/ul (0.3-0.9); MONOCYTES % 8.6 % (0.0-11.0); NEUTROPHIL # 15.3 10^3/ul (1.6-7.5); NEUTROPHILS % 88.5 % (39.0-77.0); PLATELET COUNT 315 10^3/UL (140-415); RED BLOOD COUNT 3.06 10^6/ul (4.20-5.40); RED CELL DISTRIBUTION WIDTH 15.8 % (11.5-14.5); WHITE BLOOD COUNT 17.3 10^3/ul (4.8-10.8)
[2017-03-14 15:23] LABS: POSITIVE DIFF @See below
--- NOTE | 2017-03-14 15:31 | CONS ---
Date/Time of Note Date/Time of Note DATE: 03/14/17 TIME: 15:27 Consult Date/Type/Reason Admit Date/Time Mar 08, 2017 at 22:13 Initial Consult Date Type of Consultation: Pulmonary Ordering Provider: RADHA TAVARES Subjective Patient experienced significant shortness of breath overnight. Pleurx cath is drained total of 900 cc and total this morning. States her breathing has improved. Son at bedside. Objective Vital Signs Date Time Temp Pulse Resp B/P Pulse Ox O2 Delivery O2 Flow Rate FiO2 03/14/17 14:30 117 24 97 Nasal Cannula 5.0 03/14/17 14:30 40 03/14/17 11:40 98.4 97/54 Intake and Output 03/13/17 03/13/17 03/14/17 14:59 22:59 06:59 Intake Total 1250 ml 650 ml Output Total 0 ml 3600 ml Balance 1250 ml -2950 ml Exam PHYSICAL EXAMINATION: GENERAL: Chronically ill appearing lady, comfortable at rest, talking in full and complete sentences. VITAL SIGNS: Currently afebrile, pulse 98, blood pressure 90/54, O2 saturation 96% on 2 L nasal cannula. NECK: Supple. No JVD or lymphadenopathy. CARDIAC: S1, S2, no added sounds or murmurs. CHEST: Diminished air entry bilaterally. ABDOMEN: Soft, nontender. No guarding or rebound. EXTREMITIES: No cyanosis, clubbing. Edema +1. NEUROLOGIC: Generalized weakness. Results/Medications Result Diagram: 03/14/17 1504 03/13/17 0734 Results 24 hrs Laboratory Tests Test 03/14/17 15:04 White Blood Count 17.3 #H Red Blood Count 3.06 L Hemoglobin 9.3 L Hematocrit 28.1 L Mean Corpuscular Volume 91.8 Mean Corpuscular Hemoglobin 30.4 Mean Corpuscular Hemoglobin Concent 33.1 Red Cell Distribution Width 15.8 H Platelet Count 315 Mean Platelet Volume 10.2 Neutrophils % 88.5 H Lymphocytes % 1.4 L Monocytes % 8.6 Eosinophils % 0.3 Basophils % 0.1 Nucleated Red Blood Cells % 0.0 Neutrophils # 15.3 H Lymphocytes # 0.3 L Monocytes # 1.5 H Eosinophils # 0.1 Basophils # 0.0 Nucleated Red Blood Cells # 0.0 Medications Current Medications Ondansetron HCl/ Dextrose (Zofran Inj/D5W) 54 ml @ 108 mls/hr Q6H PRN IV NAUSEA AND/OR VOMITING Last administered on 03/12/17 12:57; Admin Dose 108 MLS /HR; Start 03/09/17 at 02:30 Metoclopramide HCl (Reglan) 10 mg Q6H PRN IV vomiting/nausea Last administered on 03/14/17 02:10; Admin Dose 10 MG; Start 03/09/17 at 02:30 Aspirin (Halfprin) 81 mg DAILY PO Last administered on 03/14/17 09:58; Admin Dose 81 MG; Start 03/09/17 at 12:30 Atorvastatin Calcium (Lipitor) 20 mg HS PO Last administered on 03/13/17 21: 07; Admin Dose 20 MG; Start 03/09/17 at 21:00 Digoxin 0.125 mg 0.125 mg DAILY@13 PO Last administered on 03/14/17 12:46; Admin Dose 0.125 MG; Start 03/09/17 at 13:00 Sodium Chloride (1/2 NS) 1,000 ml @ 50 mls/hr Q20H IV Last administered on 06:46; Admin Dose 50 MLS/HR; Start 03/09/17 at 12:28 Lorazepam (Ativan) 0.5 mg Q8H PRN PO ANXIETY; Start 03/09/17 at 12:30 Ondansetron HCl (Zofran Tab) 4 mg Q6H PRN PO NAUSEA AND/OR VOMITING; Start 03/09/17 at 12:30 Acetaminophen/ Hydrocodone Bitart ([place] (5/325)) 1 tab Q6H PRN PO PAIN LEVEL 6 -10 Last administered on 03/13/17 09:16; Admin Dose 1 TAB; Start 03/09/17 at 12:30 Bisacodyl (Dulcolax) 5 mg DAILY PRN PO CONSTIPATION; Start 03/09/17 at 12:30 Carvedilol (Coreg) 3.125 mg BID PO Last administered on 03/13/17 21:07; Admin Dose 3.125 MG; Start 03/09/17 at 21:30 Enoxaparin Sodium (Lovenox) 40 mg DAILY SC Last administered on 03/14/17 09: 58; Admin Dose 40 MG; Start 03/11/17 at 17:00 Midodrine (Proamatine) 5 mg TID@,,17 PO Last administered on 03/14/17 12: 46; Admin Dose 5 MG; Start 03/13/17 at 05:30 Lorazepam (Ativan) 0.25 mg Q8H PRN IV ANXIETY Last administered on 03/14/17 03:09; Admin Dose 0.25 MG; Start 03/14/17 at 03:00 Famotidine (Pepcid) 20 mg DAILY PO ; Start 03/15/17 at 09:00 Assessment/Plan Chief Complaint/Hosp Course Assessment 1. 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 Bilateral Pleurx catheters in place. 2. Persistent leukocytosis concerning for underlying infection. Plan 1. Continue daily Pleurx catheter drainage. 2. Encourage out of bed 3. Antibiotics pending cultures ? UA C&S repeat cxr in am ? Problems: STAN MAC MD, [facility] Mar 14, 2017 15:31
[2017-03-14 15:49] LABS: ALBUMIN 2.8 g/dl (3.3-4.9); CALCIUM 7.5 mg/dl (8.4-10.2); CREATININE 0.9 mg/dl (0.44-1.00); MAGNESIUM 1.7 mg/dl (1.7-2.5); PHOSPHORUS 3.7 mg/dl (2.5-4.9); POTASSIUM 4.4 mmol/L (3.5-5.1)
--- NOTE | 2017-03-14 15:55 | CONS ---
Date/Time of Note Date/Time of Note DATE: 03/14/17 TIME: 15:27 Assessment/Plan Assessment/Plan Chief Complaint/Hosp Course Summary Assessment and Plan: Assessment: Dysphagia- s/p EGD with dilation. Patient had episode of emesis follow PO intake but was tolerating Pureed diet with Boost Acute on chronic respiratory failure Elevated troponin Bilateral pleural effusions, likely malignant Tachycardia Hyponatremia- stable Cardiomyopathy H/o Metastatic breast cancer with bone and pelvic mets Anemia of chronic disease Plan: Npo after midnight Plan for PEG placement tomorrow Discussed risk benefits with family and patient, all agreed Pt seen in collaboration with Dr. Chaves Chief Complaint/Reason for Visit: Dyshpagia History of Present Illness: This is a an 81 year old Romansh speaking female (an small arms repairer was used) with a past history of breast cancer with mets to the left hip bones,and malignant effusion status post placement of Pleurx, AICD placement, and history of dysphagia with recent EGD and dilation therapy . Patient initially presented to [facility] with shortness of breath, and transferred to [facility] because of insurance reasons, upon presentation to the ER , she appeared lethargic and was in the respiratory distress, was given oxygen and improved. 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 Contrast is noted to stay above this level after peristalsis, prominent gastroesophageal reflux. Spoke with both sons in depth regarding symptoms and appropriate plan of care. Patient and both sons agree at this time to move forward with PEG placement, to provide adequate nutritional support. Reassured patient will be able eat by month for pleasure, but PEG will provide nutrition she needs. Past Medical History: Breast cancer in 1998, post-surgery, chemoradiation recurrent disease 2013. Bilateral pleural effusions Hyperlipidemia. Atrial fibrillation. Permanent pacemaker. Allergies: No known allergies PHYSICAL EXAMINATION: GENERAL: Well developed, well nourished, alert & oriented x 3, in no acute distress SKIN: No lesions, no stigmata chronic liver disease, no evidence of bleeding diathesis LYMPHATIC: No palpable lymphadenopathy. HEAD: Normocephalic, atraumatic, no tenderness. EYES: Pupils equal reactive to light and accommodation, full extraocular movements, sclera clear, non-icteric, no discharge. EARS/NOSE AND THROAT: Ears normal, nose normal, oropharynx normal, oral membranes well hydrated without lesions. NECK: Supple, no masses, thyroid normal, JVP within normal limits, carotids normal without bruits. CHEST: Inspection within normal limits. CARDIOVASCULAR: Heart: Regular rate and rhythm, no murmurs, gallops or rubs. Peripheral pulses present within normal limits, no cyanosis, clubbing or edemas. No pulsatile abdominal mass RESPIRATORY: Lungs clear to auscultation and percussion, no wheezing, no rubs GASTROINTESTINAL AND LIVER: Abdomen: Soft, non tenderness, non-distended, no hernias, no masses, no organomegaly, no ascites, no guarding, no rebound tenderness, normoactive bowel sounds. Rectal: Deferred. Problems: Consultation Date/Type/Reason Admit Date/Time Mar 08, 2017 at 22:13 Date of Consultation: Mar 14, 2017 Type of Consultation: GI Reason for Consultation Dysphagia Nausea/vomiting Constitutional: no complaints Eyes: no complaints ENT: no complaints Respiratory: shortness of breath Cardiovascular: no complaints Gastrointestinal: decreased appetite, nausea, vomiting Genitourinary: no complaints Skin: no complaints Neurologic: no complaints Psychological: no complaints Past Surgical History Past Surgical Hx: endoscopy, other Social History Smoking Status: Never smoker Exam/Review of Systems Vital Signs Vitals Vital Signs Date Time Temp Pulse Resp B/P Pulse Ox O2 Delivery O2 Flow Rate FiO2 03/14/17 14:30 117 24 97 Nasal Cannula 5.0 03/14/17 14:30 40 03/14/17 11:40 98.4 97/54 Intake and Output 03/13/17 03/13/17 03/14/17 15:00 23:00 07:00 Intake Total 1250 ml 650 ml Output Total 0 ml 3600 ml Balance 1250 ml -2950 ml Results Result Diagram: 03/14/17 1504 03/13/17 0734 Results 24 hrs Laboratory Tests Test 03/14/17 15:04 White Blood Count 17.3 #H Red Blood Count 3.06 L Hemoglobin 9.3 L Hematocrit 28.1 L Mean Corpuscular Volume 91.8 Mean Corpuscular Hemoglobin 30.4 Mean Corpuscular Hemoglobin Concent 33.1 Red Cell Distribution Width 15.8 H Platelet Count 315 Mean Platelet Volume 10.2 Neutrophils % 88.5 H Lymphocytes % 1.4 L Monocytes % 8.6 Eosinophils % 0.3 Basophils % 0.1 Nucleated Red Blood Cells % 0.0 Neutrophils # 15.3 H Lymphocytes # 0.3 L Monocytes # 1.5 H Eosinophils # 0.1 Basophils # 0.0 Nucleated Red Blood Cells # 0.0 Medications Medications Current Medications Ondansetron HCl/ Dextrose (Zofran Inj/D5W) 54 ml @ 108 mls/hr Q6H PRN IV NAUSEA AND/OR VOMITING Last administered on 03/12/17 12:57; Admin Dose 108 MLS /HR; Start 03/09/17 at 02:30 Metoclopramide HCl (Reglan) 10 mg Q6H PRN IV vomiting/nausea Last administered on 03/14/17 02:10; Admin Dose 10 MG; Start 03/09/17 at 02:30 Aspirin (Halfprin) 81 mg DAILY PO Last administered on 03/14/17 09:58; Admin Dose 81 MG; Start 03/09/17 at 12:30 Atorvastatin Calcium (Lipitor) 20 mg HS PO Last administered on 03/13/17 21: 07; Admin Dose 20 MG; Start 03/09/17 at 21:00 Digoxin 0.125 mg 0.125 mg DAILY@13 PO Last administered on 03/14/17 12:46; Admin Dose 0.125 MG; Start 03/09/17 at 13:00 Sodium Chloride (1/2 NS) 1,000 ml @ 50 mls/hr Q20H IV Last administered on 06:46; Admin Dose 50 MLS/HR; Start 03/09/17 at 12:28 Lorazepam (Ativan) 0.5 mg Q8H PRN PO ANXIETY; Start 03/09/17 at 12:30 Ondansetron HCl (Zofran Tab) 4 mg Q6H PRN PO NAUSEA AND/OR VOMITING; Start 03/09/17 at 12:30 Acetaminophen/ Hydrocodone Bitart ([place] (5/325)) 1 tab Q6H PRN PO PAIN LEVEL 6 -10 Last administered on 03/13/17 09:16; Admin Dose 1 TAB; Start 03/09/17 at 12:30 Bisacodyl (Dulcolax) 5 mg DAILY PRN PO CONSTIPATION; Start 03/09/17 at 12:30 Carvedilol (Coreg) 3.125 mg BID PO Last administered on 03/13/17 21:07; Admin Dose 3.125 MG; Start 03/09/17 at 21:30 Enoxaparin Sodium (Lovenox) 40 mg DAILY SC Last administered on 03/14/17 09: 58; Admin Dose 40 MG; Start 03/11/17 at 17:00 Midodrine (Proamatine) 5 mg TID@,, PO Last administered on 03/14/17 12: 46; Admin Dose 5 MG; Start 03/13/17 at 05:30 Lorazepam (Ativan) 0.25 mg Q8H PRN IV ANXIETY Last administered on 03/14/17 03:09; Admin Dose 0.25 MG; Start 03/14/17 at 03:00 Famotidine (Pepcid) 20 mg DAILY PO ; Start 03/15/17 at 09:00 DINA SORIANO Mar 14, 2017 15:37
[2017-03-14] MEDS: LEVOFLOXACIN 500MG/D5W (PMX) 100 ML IVPB SCH (17:46)
[2017-03-14] MEDS: ATORVASTATIN 20 MG TAB PO SCH (21:27)
[2017-03-15] VITALS (10 sets, daily range): BP systolic 94–102; BP diastolic 51–58; PULSE 115–120; RESP 18–24
[2017-03-15] MEDS: SOD CHLORIDE 0.45% 1,000 ML IV SCH (02:36)
[2017-03-15] MEDS: FUROSEMIDE 20 MG TAB PO SCH ×2 (05:37→15:54)
[2017-03-15] MEDS: ALBUTEROL/IPRATROPIUM (NEB) 3 ML AMP HHN SCH ×3 (08:38→19:39)
[2017-03-15 08:47] LABS: ABNORMAL IP MESSAGE 1; BASOPHILS % 0.1 % (0.0-2.0); EOSINOPHILS # 0.1 10^3/ul (0.0-0.5); EOSINOPHILS % 0.7 % (0.0-7.0); HEMATOCRIT 27.5 % (37.0-47.0); HEMOGLOBIN 9.1 g/dl (12.0-16.0); LYMPHOCYTES # 0.2 10^3/ul (0.8-2.9); LYMPHOCYTES % 1.3 % (15.0-51.0); MEAN CORPUSCULAR HEMOGLOBIN 30.6 pg (29.0-33.0); MEAN CORPUSCULAR HGB CONC 33.1 g/dl (32.0-37.0); MEAN CORPUSCULAR VOLUME 92.6 fl (82.0-101.0); MEAN PLATELET VOLUME 10.3 fl (7.4-10.4); MONOCYTE # 1.5 10^3/ul (0.3-0.9); MONOCYTES % 9.8 % (0.0-11.0); NEUTROPHILS % 86.7 % (39.0-77.0); PLATELET COUNT 299 10^3/UL (140-415); RED BLOOD COUNT 2.97 10^6/ul (4.20-5.40); RED CELL DISTRIBUTION WIDTH 15.7 % (11.5-14.5)
[2017-03-15 08:52] LABS: POSITIVE DIFF @See below
[2017-03-15] MEDS: ASPIRIN (EC) 81 MG TAB PO SCH (09:00)
[2017-03-15] MEDS: ENOXAPARIN 40 MG/0.4 ML SYG SC SCH (09:00)
[2017-03-15] MEDS: MIDODRINE 5 MG TAB PO SCH ×3 (09:00→15:54)
[2017-03-15] MEDS: FAMOTIDINE 20 MG TAB PO SCH (09:00)
[2017-03-15 09:12] LABS: ALBUMIN 2.5 g/dl (3.3-4.9); CALCIUM 7.7 mg/dl (8.4-10.2); CREATININE 0.98 mg/dl (0.44-1.00); MAGNESIUM 1.7 mg/dl (1.7-2.5); POTASSIUM 4.3 mmol/L (3.5-5.1)
--- NOTE | 2017-03-15 09:25 | RADRPT ---
PROCEDURE: Chest x-ray CLINICAL INDICATION: Shortness of breath TECHNIQUE: Chest single view COMPARISON: 03/14/2017 FINDINGS: As before there is left chest AICD. A tunneled right pleural catheter is in place. Heart is normal i n size. There is widening of the mediastinum which may be due to aneurysmal dilatation, tortuosity, or adenopathy. Pulmonary vessels are borderline prominent. There is persistent right lower lung cons olidation and small bilateral pleural effusions right greater than left. Right apical pleural thicke amina is again noted. There are surgical clips in the right axilla. IMPRESSION: 1. Bilateral pleural catheters remain in place. 2. There is persistent consolidation right lower lobe and small bilateral pleural effusions right g reater than left. 3. There is persistent bilateral lower lung consolidation and volume loss right greater than left. 4. Abnormal widening of the mediastinum. This may be due to aneurysmal dilatation or adenopathy. 5. Mild atherosclerotic aortic calcification. 6. Pulmonary vessels borderline prominent. 7. AICD RPTAT: HH .Jose L Jaramillo MD, Date Time Electronically viewed and signed by .Jose L Jaramillo MD, on 03/15/2017 09:25 .W/
[2017-03-15] MEDS: DIGOXIN 0.125 MG TAB PO SCH (11:13)
[2017-03-15 12:24] LABS: ADD UMIC YES; UR ASCORBIC ACID NEGATIVE (NEGATIVE); UR BILIRUBIN (Dip) NEGATIVE (NEGATIVE); UR BLOOD (Dip) 1+ mg/dL (NEGATIVE); UR CLARITY SLIGHTLY CLOUDY (CLEAR); UR COLOR YELLOW (YELLOW); UR GLUCOSE (Dip) 1+ mg/dL (NEGATIVE); UR KETONES (Dip) NEGATIVE (NEGATIVE); UR LEUKOCYTE ESTERASE (Dip) 3+ Leu/ul (NEGATIVE); UR NITRITE (Dip) POSITIVE (NEGATIVE); UR RBC 1 /HPF (0-5); UR SPECIFIC GRAVITY (Dip) 1.012 (1.003-1.030); UR TOTAL PROTEIN (Dip) 1+ mg/dl (NEGATIVE); UR UROBILINOGEN (Dip) NEGATIVE (NEGATIVE)
--- NOTE | 2017-03-15 14:02 | CONS ---
Date/Time of Note Date/Time of Note DATE: 03/15/17 TIME: 14:01 Consult Date/Type/Reason Admit Date/Time Mar 08, 2017 at 22:13 Type of Consultation: Pulmonary Ordering Provider: RADHA TAVARES Subjective Place catheters during this morning. Significant output from both sides. Patient appears comfortable at rest. Objective Vital Signs Date Time Temp Pulse Resp B/P Pulse Ox O2 Delivery O2 Flow Rate FiO2 03/15/17 12:22 116 03/15/17 11:34 98.2 20 96/51 94 03/15/17 08:37 5.0 03/15/17 08:37 Nasal Cannula 03/14/17 20:22 40 Intake and Output 03/14/17 03/14/17 03/15/17 14:59 22:59 06:59 Intake Total 1100 ml 825 ml Output Total 250 ml Balance 850 ml 825 ml Exam PHYSICAL EXAMINATION: GENERAL: Chronically ill appearing lady, comfortable at rest, talking in full and complete sentences. VITAL SIGNS: Currently afebrile, pulse 98, blood pressure 90/54, O2 saturation 96% on 2 L nasal cannula. NECK: Supple. No JVD or lymphadenopathy. CARDIAC: S1, S2, no added sounds or murmurs. CHEST: Diminished air entry bilaterally. ABDOMEN: Soft, nontender. No guarding or rebound. EXTREMITIES: No cyanosis, clubbing. Edema +1. NEUROLOGIC: Generalized weakness. Results/Medications Result Diagram: 03/15/1781203/15/1713 Results 24 hrs Laboratory Tests Test 03/14/17 15:04 03/14/17 15:05 03/15/17 00:15 03/15/17 02:46 White Blood Count 17.3 #H Red Blood Count 3.06 L Hemoglobin 9.3 L Hematocrit 28.1 L Mean Corpuscular Volume 91.8 Mean Corpuscular Hemoglobin 30.4 Mean Corpuscular Hemoglobin Concent 33.1 Red Cell Distribution Width 15.8 H Platelet Count 315 Mean Platelet Volume 10.2 Neutrophils % 88.5 H Lymphocytes % 1.4 L Monocytes % 8.6 Eosinophils % 0.3 Basophils % 0.1 Nucleated Red Blood Cells % 0.0 Neutrophils # 15.3 H Lymphocytes # 0.3 L Monocytes # 1.5 H Eosinophils # 0.1 Basophils # 0.0 Nucleated Red Blood Cells # 0.0 Sodium Level 130 L Potassium Level 4.4 Chloride Level 93 L Carbon Dioxide Level 29 Anion Gap 12 Blood Urea Nitrogen 14 Creatinine 0.90 Glucose Level 130 Calcium Level 7.5 L Phosphorus Level 3.7 Magnesium Level 1.7 Albumin 2.8 L Urine Color YELLOW Urine Clarity SLIGHTLY CLOUDY A Urine pH 6.0 Urine Specific [place] 1.012 Urine Ketones NEGATIVE Urine Nitrite POSITIVE A Urine Bilirubin NEGATIVE Urine Urobilinogen NEGATIVE Urine Leukocyte Esterase 3+ H Urine Microscopic RBC 1 Urine Microscopic WBC 65 H Urine Hemoglobin 1+ H Urine Glucose 1+ H Urine Total Protein 1+ H Bedside Glucose 143 Test 03/15/17 08:13 White Blood Count 15.0 H Red Blood Count 2.97 L Hemoglobin 9.1 L Hematocrit 27.5 L Mean Corpuscular Volume 92.6 Mean Corpuscular Hemoglobin 30.6 Mean Corpuscular Hemoglobin Concent 33.1 Red Cell Distribution Width 15.7 H Platelet Count 299 Mean Platelet Volume 10.3 Neutrophils % 86.7 H Lymphocytes % 1.3 L Monocytes % 9.8 Eosinophils % 0.7 Basophils % 0.1 Nucleated Red Blood Cells % 0.0 Neutrophils # 13.0 H Lymphocytes # 0.2 L Monocytes # 1.5 H Eosinophils # 0.1 Basophils # 0.0 Nucleated Red Blood Cells # 0.0 Sodium Level 130 L Potassium Level 4.3 Chloride Level 94 L Carbon Dioxide Level 32 H Anion Gap 8 Blood Urea Nitrogen 13 Creatinine 0.98 Glucose Level 141 Calcium Level 7.7 L Phosphorus Level 3.0 Magnesium Level 1.7 Albumin 2.5 L Medications Current Medications Ondansetron HCl/ Dextrose (Zofran Inj/D5W) 54 ml @ 108 mls/hr Q6H PRN IV NAUSEA AND/OR VOMITING Last administered on 03/12/17 12:57; Admin Dose 108 MLS /HR; Start 03/09/17 at 02:30 Metoclopramide HCl (Reglan) 10 mg Q6H PRN IV vomiting/nausea Last administered on 03/14/17 23:48; Admin Dose 10 MG; Start 03/09/17 at 02:30 Aspirin (Halfprin) 81 mg DAILY PO Last administered on 03/14/17 09:58; Admin Dose 81 MG; Start 03/09/17 at 12:30 Atorvastatin Calcium (Lipitor) 20 mg HS PO Last administered on 03/14/17 21: 27; Admin Dose 20 MG; Start 03/09/17 at 21:00 Digoxin 0.125 mg 0.125 mg DAILY@13 PO Last administered on 03/15/17 11:13; Admin Dose 0.125 MG; Start 03/09/17 at 13:00 Sodium Chloride (1/2 NS) 1,000 ml @ 50 mls/hr Q20H IV Last administered on 02:36; Admin Dose 50 MLS/HR; Start 03/09/17 at 12:28 Lorazepam (Ativan) 0.5 mg Q8H PRN PO ANXIETY; Start 03/09/17 at 12:30 Ondansetron HCl (Zofran Tab) 4 mg Q6H PRN PO NAUSEA AND/OR VOMITING; Start 03/09/17 at 12:30 Acetaminophen/ Hydrocodone Bitart ([place] (5/325)) 1 tab Q6H PRN PO PAIN LEVEL 6 -10 Last administered on 03/13/17 09:16; Admin Dose 1 TAB; Start 03/09/17 at 12:30 Bisacodyl (Dulcolax) 5 mg DAILY PRN PO CONSTIPATION; Start 03/09/17 at 12:30 Carvedilol (Coreg) 3.125 mg BID PO Last administered on 03/15/17 09:00; Admin Dose 3.125 MG; Start 03/09/17 at 21:30 Enoxaparin Sodium (Lovenox) 40 mg DAILY SC Last administered on 03/14/17 09: 58; Admin Dose 40 MG; Start 03/11/17 at 17:00 Midodrine (Proamatine) 5 mg TID@,,17 PO Last administered on 03/14/17 17: 49; Admin Dose 5 MG; Start 03/13/17 at 05:30 Lorazepam (Ativan) 0.25 mg Q8H PRN IV ANXIETY Last administered on 03/14/17 03:09; Admin Dose 0.25 MG; Start 03/14/17 at 03:00 Famotidine 20 mg 20 mg DAILY PO ; Start 03/15/17 at 09:00 Levofloxacin/ Dextrose (Levaquin 500mg/ D5W 100 ml (Pmx)) 100 ml @ 100 mls/hr Q24H IVPB Last administered on 11/14/17at 17:46; Admin Dose 100 MLS/HR; Start 03/14/17 at 16:00 Vitamin A/Vitamin D (Vitamin A & D Oint) 1 applic BID TOP ; Start 03/15/17 at 14:00; Status UNV Assessment/Plan Chief Complaint/Hosp Course Assessment 1. 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 Bilateral Pleurx catheters in place. 2. Persistent leukocytosis concerning for underlying infection. 3. Dysphagia with decreased p.o. intake. Plan 1. Continue daily Pleurx catheter drainage. 2. Encourage out of bed 3. Continue Levaquin. 4. EGD and PEG tube placement. Problems: STAN MAC MD, [facility] Mar 15, 2017 14:02
[2017-03-15] MEDS: VITAMIN A & D 5 GM OINT PACKET TOP SCH ×2 (14:48→20:53)
--- NOTE | 2017-03-15 15:43 | CONS ---
Date/Time of Note Date/Time of Note DATE: 03/15/17 TIME: 15:39 Assessment/Plan Assessment/Plan Chief Complaint/Hosp Course IMPRESSION: 1. Congestive heart failure exacerbation-systolic acute on chronic EF 35%by echo this admit 2. History of cardiomyopathy, decreased left ventricular ejection fraction. 35 % by echo this admit 3. Status post recent automatic implantable cardioverter-defibrillator generator change. 4. Pleural effusions, recurrent, status post PleurX catheter. 5. Metastatic breast carcinoma. 6. Hypoxia, improved. 7. Tachycardia consistent with sinus tachycardia. REcc: -Tele -continmue coreg -Continue digoxin -Wean off midodrine which is pure afterload in setting of systolic failure -Continue lasix diuresis Problems: Consultation Date/Type/Reason Admit Date/Time Mar 08, 2017 at 22:13 Initial Consult Date 03/09/2017 Type of Consultation: cardiology Reason for Consultation CXHF/cardiomyopathy Referring Provider: RADHA TAVARES Exam/Review of Systems Vital Signs Vitals Vital Signs Date Time Temp Pulse Resp B/P Pulse Ox O2 Delivery O2 Flow Rate FiO2 03/15/17 15:30 98.7 115 19 96/53 92 03/15/17 15:29 3.0 03/15/17 14:28 Nasal Cannula 03/14/17 20:22 40 Intake and Output 03/14/17 03/14/17 03/15/17 14:59 22:59 06:59 Intake Total 1100 ml 825 ml Output Total 250 ml Balance 850 ml 825 ml Exam Review of Systems: CONSTITUTIONAL: No fevers, chills. PULMONARY: No sob CARDIOVASCULAR: No chest pain/palpitations GASTROINTESTINAL: No nausea/vomiting. GENITOURINARY: No hematuria/dysuria. MUSCULOSKELETAL: No myagias/arthalgias. PSYCHIATRIC: The patient denies depression. NEUROLOGIC: No weakness Constitutional: alert Psych: no complaints Head: normocephalic ENMT: mucosa pink and moist Neck: jvd (9 cm water), supple Respiratory: diminished breath sounds (at bases/B) Cardiovascular: other (L upper chest pacer pocker covered by steri-strips), regular rate and rhythm Gastrointestinal: non-tender, soft Musculoskeletal: muscle tone (normal) Extremities: edema (none) Neurological: other (No focal deficits) Results Result Diagram: 03/15/17 0813 03/15/17 0813 Results 24 hrs Laboratory Tests Test 03/15/17 00:15 03/15/17 02:46 03/15/17 08:13 Urine Color YELLOW Urine Clarity SLIGHTLY CLOUDY A Urine pH 6.0 Urine Specific [place] 1.012 Urine Ketones NEGATIVE Urine Nitrite POSITIVE A Urine Bilirubin NEGATIVE Urine Urobilinogen NEGATIVE Urine Leukocyte Esterase 3+ H Urine Microscopic RBC 1 Urine Microscopic WBC 65 H Urine Hemoglobin 1+ H Urine Glucose 1+ H Urine Total Protein 1+ H Bedside Glucose 143 White Blood Count 15.0 H Red Blood Count 2.97 L Hemoglobin 9.1 L Hematocrit 27.5 L Mean Corpuscular Volume 92.6 Mean Corpuscular Hemoglobin 30.6 Mean Corpuscular Hemoglobin Concent 33.1 Red Cell Distribution Width 15.7 H Platelet Count 299 Mean Platelet Volume 10.3 Neutrophils % 86.7 H Lymphocytes % 1.3 L Monocytes % 9.8 Eosinophils % 0.7 Basophils % 0.1 Nucleated Red Blood Cells % 0.0 Neutrophils # 13.0 H Lymphocytes # 0.2 L Monocytes # 1.5 H Eosinophils # 0.1 Basophils # 0.0 Nucleated Red Blood Cells # 0.0 Sodium Level 130 L Potassium Level 4.3 Chloride Level 94 L Carbon Dioxide Level 32 H Anion Gap 8 Blood Urea Nitrogen 13 Creatinine 0.98 Glucose Level 141 Calcium Level 7.7 L Phosphorus Level 3.0 Magnesium Level 1.7 Albumin 2.5 L Medications Medications Current Medications Ondansetron HCl/ Dextrose (Zofran Inj/D5W) 54 ml @ 108 mls/hr Q6H PRN IV NAUSEA AND/OR VOMITING Last administered on 03/12/17 12:57; Admin Dose 108 MLS /HR; Start 03/09/17 at 02:30 Metoclopramide HCl (Reglan) 10 mg Q6H PRN IV vomiting/nausea Last administered on 03/14/17 23:48; Admin Dose 10 MG; Start 03/09/17 at 02:30 Aspirin (Halfprin) 81 mg DAILY PO Last administered on 03/14/17 09:58; Admin Dose 81 MG; Start 03/09/17 at 12:30 Atorvastatin Calcium (Lipitor) 20 mg HS PO Last administered on 03/14/17 21: 27; Admin Dose 20 MG; Start 03/09/17 at 21:00 Digoxin 0.125 mg 0.125 mg DAILY@13 PO Last administered on 03/15/17 11:13; Admin Dose 0.125 MG; Start 03/09/17 at 13:00 Sodium Chloride (1/2 NS) 1,000 ml @ 50 mls/hr Q20H IV Last administered on 02:36; Admin Dose 50 MLS/HR; Start 03/09/17 at 12:28 Lorazepam (Ativan) 0.5 mg Q8H PRN PO ANXIETY; Start 03/09/17 at 12:30 Ondansetron HCl (Zofran Tab) 4 mg Q6H PRN PO NAUSEA AND/OR VOMITING; Start 03/09/17 at 12:30 Acetaminophen/ Hydrocodone Bitart ([place] (5/325)) 1 tab Q6H PRN PO PAIN LEVEL 6 -10 Last administered on 03/13/17 09:16; Admin Dose 1 TAB; Start 03/09/17 at 12:30 Bisacodyl (Dulcolax) 5 mg DAILY PRN PO CONSTIPATION; Start 03/09/17 at 12:30 Carvedilol (Coreg) 3.125 mg BID PO Last administered on 03/15/17 09:00; Admin Dose 3.125 MG; Start 03/09/17 at 21:30 Enoxaparin Sodium (Lovenox) 40 mg DAILY SC Last administered on 03/14/17 09: 58; Admin Dose 40 MG; Start 03/11/17 at 17:00 Midodrine (Proamatine) 5 mg TID@,,17 PO Last administered on 03/14/17 17: 49; Admin Dose 5 MG; Start 03/13/17 at 05:30 Lorazepam (Ativan) 0.25 mg Q8H PRN IV ANXIETY Last administered on 03/14/17 03:09; Admin Dose 0.25 MG; Start 03/14/17 at 03:00 Famotidine 20 mg 20 mg DAILY PO ; Start 03/15/17 at 09:00 Levofloxacin/ Dextrose (Levaquin 500mg/ D5W 100 ml (Pmx)) 100 ml @ 100 mls/hr Q24H IVPB Last administered on 03/14/17 17:46; Admin Dose 100 MLS/HR; Start 03/14/17 at 16:00 Vitamin A/Vitamin D (Vitamin A & D Oint) 1 applic BID TOP Last administered on 03/15/17t 14:48; Admin Dose 1 APPLIC; Start 03/15/17 at 14:00 ROXIE VELARDE Mar 15, 2017 15:43
[2017-03-15] MEDS: LEVOFLOXACIN 500MG/D5W (PMX) 100 ML IVPB SCH (15:55)
--- NOTE | 2017-03-15 16:23 | PN ---
Date/Time of Note Date/Time of Note DATE: 03/15/17 TIME: 16:17 Assessment/Plan VTE Prophylaxis VTE Prophylaxis Intervention: LMWH Lines/Catheters IV Catheter Type (from Nrs): Peripheral IV Urinary Cath still in place: No Subjective 24 Hr Interval Summary Free Text/Dictation Patient resting comfortably and states respiratory status more stable since pleurx cath drained. PEG placement planned for today. No acute overnight events. Exam/Review of Systems Vital Signs Vitals Vital Signs Date Time Temp Pulse Resp B/P Pulse Ox O2 Delivery O2 Flow Rate FiO2 03/15/17 15:30 98.7 115 19 96/53 92 03/15/17 15:29 3.0 03/15/17 14:28 Nasal Cannula 03/14/17 20:22 40 Intake and Output 03/14/17 03/14/17 03/15/17 15:00 23:00 07:00 Intake Total 1100 ml 825 ml Output Total 250 ml Balance 850 ml 825 ml Exam 1. Acute on chronic respiratory failure secondary to PNA vs pleural effusions - Continue on antibiotics - Will continue on NC and wean as tolerated to maintain O2 >90% - Pulmonology consulted and recommendations appreciated. Will need daily pleurx cath drainage 2. Elevated troponin -mild, cardiology aware -no chest pain 3. Dysphagia - GI reconsulted and recommendations appreciated. Plans for EGD with PEG placement today. 4. Bilateral pleural effusions, likely malignant - Pulmonology on board. Plans to drain pleurx cath daily - Continue on NC and wean as tolerating to keep saturations >90% 5. Tachycardia - Cardiology on board and consultation appreciated - On Digoxin and coreg 6. Hyponatremia - Mostly likely secondary to dehydration - No acute symptoms - gentle IVF and monitor 7. Cardiomyopathy, congestive heart failure, acute on chronic ejection fraction 45% - Cardiology on board and recommendations appreciated. - Continue statin, asa, coreg as tolerated - ICD battery change done 8. 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 Merlos, oncology, outpatient. States patient is stage IV and not appropriate to continue chemotherapy at this time. Recommending Palliative care at this time. - Spoke with Family and they are not satisfied with plan and would like to continue to pursue treatment once patient discharged 9. Anemia of chronic disease - currently stable - will continue monitoring 10. Disposition - PEG placement today - SNF placement once medically stable Results Result Diagram: 03/15/17 0813 03/15/17 0813 Results 24 hrs Laboratory Tests Test 03/15/17 00:15 03/15/17 02:46 03/15/17 08:13 Urine Color YELLOW Urine Clarity SLIGHTLY CLOUDY A Urine pH 6.0 Urine Specific [place] 1.012 Urine Ketones NEGATIVE Urine Nitrite POSITIVE A Urine Bilirubin NEGATIVE Urine Urobilinogen NEGATIVE Urine Leukocyte Esterase 3+ H Urine Microscopic RBC 1 Urine Microscopic WBC 65 H Urine Hemoglobin 1+ H Urine Glucose 1+ H Urine Total Protein 1+ H Bedside Glucose 143 White Blood Count 15.0 H Red Blood Count 2.97 L Hemoglobin 9.1 L Hematocrit 27.5 L Mean Corpuscular Volume 92.6 Mean Corpuscular Hemoglobin 30.6 Mean Corpuscular Hemoglobin Concent 33.1 Red Cell Distribution Width 15.7 H Platelet Count 299 Mean Platelet Volume 10.3 Neutrophils % 86.7 H Lymphocytes % 1.3 L Monocytes % 9.8 Eosinophils % 0.7 Basophils % 0.1 Nucleated Red Blood Cells % 0.0 Neutrophils # 13.0 H Lymphocytes # 0.2 L Monocytes # 1.5 H Eosinophils # 0.1 Basophils # 0.0 Nucleated Red Blood Cells # 0.0 Sodium Level 130 L Potassium Level 4.3 Chloride Level 94 L Carbon Dioxide Level 32 H Anion Gap 8 Blood Urea Nitrogen 13 Creatinine 0.98 Glucose Level 141 Calcium Level 7.7 L Phosphorus Level 3.0 Magnesium Level 1.7 Albumin 2.5 L Medications Medications Current Medications Ondansetron HCl/ Dextrose (Zofran Inj/D5W) 54 ml @ 108 mls/hr Q6H PRN IV NAUSEA AND/OR VOMITING Last administered on 03/12/17 12:57; Admin Dose 108 MLS /HR; Start 03/09/17 at 02:30 Metoclopramide HCl (Reglan) 10 mg Q6H PRN IV vomiting/nausea Last administered on 03/14/17 23:48; Admin Dose 10 MG; Start 03/09/17 at 02:30 Aspirin (Halfprin) 81 mg DAILY PO Last administered on 03/14/17 09:58; Admin Dose 81 MG; Start 03/09/17 at 12:30 Atorvastatin Calcium (Lipitor) 20 mg HS PO Last administered on 03/14/17 21: 27; Admin Dose 20 MG; Start 03/09/17 at 21:00 Digoxin 0.125 mg 0.125 mg DAILY@13 PO Last administered on 03/15/17 11:13; Admin Dose 0.125 MG; Start 03/09/17 at 13:00 Sodium Chloride (1/2 NS) 1,000 ml @ 50 mls/hr Q20H IV Last administered on 02:36; Admin Dose 50 MLS/HR; Start 03/09/17 at 12:28 Lorazepam (Ativan) 0.5 mg Q8H PRN PO ANXIETY; Start 03/09/17 at 12:30 Ondansetron HCl (Zofran Tab) 4 mg Q6H PRN PO NAUSEA AND/OR VOMITING; Start 03/09/17 at 12:30 Acetaminophen/ Hydrocodone Bitart ([place] (5/325)) 1 tab Q6H PRN PO PAIN LEVEL 6 -10 Last administered on 03/13/17 09:16; Admin Dose 1 TAB; Start 03/09/17 at 12:30 Bisacodyl (Dulcolax) 5 mg DAILY PRN PO CONSTIPATION; Start 03/09/17 at 12:30 Carvedilol (Coreg) 3.125 mg BID PO Last administered on 03/15/17 09:00; Admin Dose 3.125 MG; Start 03/09/17 at 21:30 Enoxaparin Sodium (Lovenox) 40 mg DAILY SC Last administered on 03/14/17 09: 58; Admin Dose 40 MG; Start 03/11/17 at 17:00 Midodrine (Proamatine) 5 mg TID@,,17 PO Last administered on 03/14/17 17: 49; Admin Dose 5 MG; Start 03/13/17 at 05:30 Lorazepam (Ativan) 0.25 mg Q8H PRN IV ANXIETY Last administered on 03/14/17 03:09; Admin Dose 0.25 MG; Start 03/14/17 at 03:00 Famotidine 20 mg 20 mg DAILY PO ; Start 03/15/17 at 09:00 Levofloxacin/ Dextrose (Levaquin 500mg/ D5W 100 ml (Pmx)) 100 ml @ 100 mls/hr Q24H IVPB Last administered on 03/15/17 15:55; Admin Dose 100 MLS/HR; Start 03/14/17 at 16:00 Vitamin A/Vitamin D (Vitamin A & D Oint) 1 applic BID TOP Last administered on 03/15/17t 14:48; Admin Dose 1 APPLIC; Start 03/15/17 at 14:00 GARY CROSS MD Mar 15, 2017 16:23
[2017-03-15] MEDS ORDERED: CEFAZOLIN 2 GM/50 ML (PMX) 50 ML IVPB ONE (19:04)
[2017-03-15] MEDS ORDERED: FENTAnyl 50 MCG/ML VIAL ONE (19:14)
[2017-03-15] MEDS ORDERED: PROPOFOL 0 ML ONE ×2 (19:14→19:26)
[2017-03-15] MEDS ORDERED: MIDAZOLAM 1 MG/ML 2 ML INJ ONE (19:14)
[2017-03-15] MEDS ORDERED: ETOMIDATE 20 MG INJ ONE (19:17)
--- NOTE | 2017-03-15 19:33 | OPPN ---
Date/Time of Note Date/Time of Note DATE: 03/15/17 TIME: 19:30 Proc Note GI Procedure Date 03/15/17 Indication: other (Feeding difficulties) Pre-procedure Diagnosis Feeding difficulties Post-procedure Diagnosis Impression: Extrinsic compression midesophagus Post uneventful PEG Placement of Lao 20 GT Plan: Start feedings tomorrow Continue oral intake for pleasure Gastrostomy tube and site routine care . Procedure Performed: Other Surgeon OXANA PARIS MD See signature line Assistant Womens Volleyball Coach none Anesthesia Type: MAC Anesthesiologist: ALFRED RODRIGES MD Tourniquet Time none EBL none Transfusion required none Biopsy 1: None Grafts/Implants Lao 20 gastrostomy tube Tubes/Drains none Complication(s) none Disposition: PACU Procedure Description After informed consent, with the patient/relatives understanding the procedure, its indications, potential risks and complications, including but not limited to : Allergic reaction, bleeding, perforation or infection, and all after all pertinent questions were answered to the patient's satisfaction, patient/ relative signed witnessed informed consent. Following this, premedication was administered slowly IV push under care of cardiovascular respiratory monitoring with pulse oximetry, and automatic blood pressure, and phototypesetting equipment monitor. Once to sedative effect was achieved the patient was placed in the left lateral decubitus, the panendoscope was introduced and advanced under visual control. Careful examination of the upper gastrointestinal tract, both on insertion as well as withdrawal of the instrument disclosed following findings: ESOPHAGUS: The mucosa of the entire esophagus was carefully examined and showed the following findings: There is extrinsic compression of the midesophagus as previously described. Otherwise the mucosa appears within normal limits. There is no evidence of esophagitis, varices, neoplasm or stricture. No hiatal hernia identified.] Stomach: Upon entrance to the stomach air was insufflated, the gastric unger distended normally. The mucosa of the fundus, body and antrum of the stomach was carefully examined both head-on and on retroflexion, and showed the following findings: [The mucosa appears within normal limits with no abnormalities. There is no evidence of gastritis, ulcers or neoplasm.] Pylorus: The pylorus was carefully examined and showed the following findings: [The pylorus appears patent and within normal limits, with no evidence of gastric outlet obstruction.] Duodenum: The duodenal mucosa was carefully examined in the duodenal bulb as well as the second portion of the duodenum and showed the following findings: [The mucosa appears unremarkable with no evidence of duodenitis, ulcer or neoplasm.] The instrument was then brought back to the stomach and the anterior wall mid- body was identified by transillumination and "finger indentation", this area was then marked in the anterior wall of the abdomen, it was cleansed with Betadine and infiltrated with Xylocaine 1%. Following this a trocar needle was introduced into the gastric lumen under visual control with the endoscope, once in the gastric lumen a guide wire was advanced and secured with a polypectomy snare, at this point the endoscope was withdrawn bringing the guidewire out through the patient's mouth. Following this a Lao #20 gastrostomy tube was introduced over the guidewire, with the Ashwin-Mele technique without difficulty , a small incision was performed in the skin to allow easy passage of the G-tube , once the position of the gastrostomy was confirmed, the external stopper and connectors were installed, and a clean dressing applied. The patient tolerated the procedure well and was transferred out of the endoscopy suite awake, and in good condition to continue recovery under observation, feedings will start in the next 12-24 hours and the discharge in the care will be instituted. Copies To: CC: OXANA PARIS MD, MORDO MD Mar 15, 2017 19:33
[2017-03-15] MEDS: ATORVASTATIN 20 MG TAB PO SCH (20:53)
[2017-03-15] MEDS: HYDROCODONE/APAP (5/325) TAB PO PRN (20:53)
[2017-03-16] VITALS (12 sets, daily range): BP systolic 98–102; BP diastolic 50–65; PULSE 119–134; RESP 16–20
[2017-03-16] MEDS ORDERED: morphine 2 MG INJ IV ONE (01:30)
[2017-03-16] MEDS: SOD CHLORIDE 0.45% 1,000 ML IV SCH (01:30)
[2017-03-16] MEDS: FUROSEMIDE 20 MG TAB PO SCH ×2 (06:00→18:01)
[2017-03-16] MEDS: ALBUTEROL/IPRATROPIUM (NEB) 3 ML AMP HHN SCH ×3 (07:57→20:44)
[2017-03-16] MEDS: ASPIRIN (EC) 81 MG TAB PO SCH (09:57)
[2017-03-16] MEDS: FAMOTIDINE 20 MG TAB PO SCH (09:58)
[2017-03-16] MEDS: VITAMIN A & D 5 GM OINT PACKET TOP SCH ×2 (09:59→21:32)
[2017-03-16] MEDS: ENOXAPARIN 40 MG/0.4 ML SYG SC SCH (10:10)
[2017-03-16] MEDS: MIDODRINE 5 MG TAB PO SCH ×3 (10:12→17:58)
--- NOTE | 2017-03-16 11:57 | CONS ---
Date/Time of Note Date/Time of Note DATE: 03/16/17 TIME: 11:56 Assessment/Plan Assessment/Plan Additional Assessment/Plan Assessment and recommendations; 1. Patient admitted with recurrent pleural effusion status post bilateral Pleurx catheter placement requiring daily drainage. 2. Metastatic breast cancer. 3. History of cardiac arrhythmia. Continue current supportive care. Consider discharge. Consultation Date/Type/Reason Admit Date/Time Mar 08, 2017 at 22:13 Initial Consult Date 03/14/17 Type of Consultation: Pulmonary Referring Provider: RADHA TAVARES 24 HR Interval Summary Free Text/Dictation Patient's condition is stable. Denies any shortness of breath, chest pain, wheezing or cough. General exam; elderly woman, awake and alert. Currently in no distress. Exam/Review of Systems Vital Signs Vitals Vital Signs Date Time Temp Pulse Resp B/P Pulse Ox O2 Delivery O2 Flow Rate FiO2 03/16/17 11:41 98.1 120 16 102/57 95 03/16/17 07:57 Nasal Cannula 4.0 03/14/17 20:22 40 Intake and Output 03/15/17 03/15/17 03/16/17 15:00 23:00 07:00 Intake Total 600 ml 575 ml Output Total 350 ml Balance 600 ml 225 ml Exam HEENT exam; supple neck, no JVD. No lymphadenopathy. Midline trachea. No thyromegaly. Patient has a multiple carious teeth. Chest exam; diminished but clear breath sounds. Bilateral Pleurx catheters are in place. S1-S2 audible, no murmurs. Pacemaker in left chest wall. Abdomen exam; soft, nontender. No organomegaly. Bowel sounds audible. Extremity exam; no peripheral edema. [employer] exam; no focal motor deficit. Results Result Diagram: 03/15/1781203/15/1713 Medications Medications Current Medications Ondansetron HCl/ Dextrose (Zofran Inj/D5W) 54 ml @ 108 mls/hr Q6H PRN IV NAUSEA AND/OR VOMITING Last administered on 03/12/17 12:57; Admin Dose 108 MLS /HR; Start 03/09/17 at 02:30 Metoclopramide HCl (Reglan) 10 mg Q6H PRN IV vomiting/nausea Last administered on 03/14/17 23:48; Admin Dose 10 MG; Start 03/09/17 at 02:30 Aspirin (Halfprin) 81 mg DAILY PO Last administered on 03/16/17 09:57; Admin Dose 81 MG; Start 03/09/17 at 12:30 Atorvastatin Calcium (Lipitor) 20 mg HS PO Last administered on 03/15/17 20: 53; Admin Dose 20 MG; Start 03/09/17 at 21:00 Digoxin 0.125 mg 0.125 mg DAILY@13 PO Last administered on 03/15/17 11:13; Admin Dose 0.125 MG; Start 03/09/17 at 13:00 Sodium Chloride (1/2 NS) 1,000 ml @ 50 mls/hr Q20H IV Last administered on 01:30; Admin Dose 50 MLS/HR; Start 03/09/17 at 12:28 Lorazepam (Ativan) 0.5 mg Q8H PRN PO ANXIETY; Start 03/09/17 at 12:30 Ondansetron HCl (Zofran Tab) 4 mg Q6H PRN PO NAUSEA AND/OR VOMITING; Start 03/09/17 at 12:30 Acetaminophen/ Hydrocodone Bitart ([place] (5/325)) 1 tab Q6H PRN PO PAIN LEVEL 6 -10 Last administered on 03/15/17 20:53; Admin Dose 1 TAB; Start 03/09/17 at 12:30 Bisacodyl (Dulcolax) 5 mg DAILY PRN PO CONSTIPATION; Start 03/09/17 at 12:30 Carvedilol (Coreg) 3.125 mg BID PO Last administered on 03/16/17 09:58; Admin Dose 3.125 MG; Start 03/09/17 at 21:30 Enoxaparin Sodium (Lovenox) 40 mg DAILY SC Last administered on 03/16/17 10: 10; Admin Dose 40 MG; Start 03/11/17 at 17:00 Midodrine (Proamatine) 5 mg TID@,,17 PO Last administered on 03/16/17 10: 12; Admin Dose 5 MG; Start 03/13/17 at 05:30 Lorazepam (Ativan) 0.25 mg Q8H PRN IV ANXIETY Last administered on 03/14/17 03:09; Admin Dose 0.25 MG; Start 03/14/17 at 03:00 Famotidine 20 mg 20 mg DAILY PO Last administered on 03/16/17 09:58; Admin Dose 20 MG; Start 03/15/17 at 09:00 Levofloxacin/ Dextrose (Levaquin 500mg/ D5W 100 ml (Pmx)) 100 ml @ 100 mls/hr Q24H IVPB Last administered on 03/15/17 15:55; Admin Dose 100 MLS/HR; Start 03/14/17 at 16:00 Vitamin A/Vitamin D (Vitamin A & D Oint) 1 applic BID TOP Last administered on 03/16/17 09:59; Admin Dose 1 APPLIC; Start 03/15/17 at 14:00 DAGOBERTO CAO Mar 16, 2017 11:57
--- NOTE | 2017-03-16 13:02 | PN ---
Date/Time of Note Date/Time of Note DATE: 03/16/17 TIME: 12:52 Assessment/Plan VTE Prophylaxis VTE Prophylaxis Intervention: SCD's Lines/Catheters IV Catheter Type (from Nrs): Peripheral IV Urinary Cath still in place: No Assessment/Plan Chief Complaint/Hosp Course Summary Assessment and Plan: Assessment: Dysphagia- s/p EGD with dilation. 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 Chaves Subjective: Course reviewed with nursing staff Patient interviewed and examined All labs, imaging and other results reviewed The patient feeling discouraged today. Abby TF well, however still has some nausea. Spoke to nurse to utilize antiemetic medication as needed. Increase TF slowly. Will continue to monitor PHYSICAL EXAMINATION: GENERAL: Well developed, well nourished, alert & oriented x 3, in no acute distress SKIN: No lesions, no stigmata chronic liver disease, no evidence of bleeding diathesis LYMPHATIC: No palpable lymphadenopathy. HEAD: Normocephalic, atraumatic, no tenderness. EYES: Pupils equal reactive to light and accommodation, full extraocular movements, sclera clear, non-icteric, no discharge. EARS/NOSE AND THROAT: Ears normal, nose normal, oropharynx normal, oral membranes well hydrated without lesions. NECK: Supple, no masses, thyroid normal, JVP within normal limits, carotids normal without bruits. CHEST: Inspection within normal limits. CARDIOVASCULAR: Heart: Regular rate and rhythm, no murmurs, gallops or rubs. Peripheral pulses present within normal limits, no cyanosis, clubbing or edemas. No pulsatile abdominal mass RESPIRATORY: Lungs clear to auscultation and percussion, no wheezing, no rubs GASTROINTESTINAL AND LIVER: Abdomen: Soft, non tenderness, non-distended, no hernias, no masses, no organomegaly, no ascites, no guarding, no rebound tenderness, normoactive bowel sounds. Rectal: Deferred. Problems: Exam/Review of Systems Vital Signs Vitals Vital Signs Date Time Temp Pulse Resp B/P Pulse Ox O2 Delivery O2 Flow Rate FiO2 03/16/17 11:41 98.1 120 16 102/57 95 03/16/17 07:57 Nasal Cannula 4.0 03/14/17 20:22 40 Intake and Output 03/15/17 03/15/17 03/16/17 14:59 22:59 06:59 Intake Total 600 ml 575 ml Output Total 350 ml Balance 600 ml 225 ml Results Result Diagram: 03/15/1713 03/15/17 0813 Medications Medications Current Medications Ondansetron HCl/ Dextrose (Zofran Inj/D5W) 54 ml @ 108 mls/hr Q6H PRN IV NAUSEA AND/OR VOMITING Last administered on 03/12/17 12:57; Admin Dose 108 MLS /HR; Start 03/09/17 at 02:30 Metoclopramide HCl (Reglan) 10 mg Q6H PRN IV vomiting/nausea Last administered on 03/14/17 23:48; Admin Dose 10 MG; Start 03/09/17 at 02:30 Aspirin (Halfprin) 81 mg DAILY PO Last administered on 03/16/17 09:57; Admin Dose 81 MG; Start 03/09/17 at 12:30 Atorvastatin Calcium (Lipitor) 20 mg HS PO Last administered on 03/15/17 20: 53; Admin Dose 20 MG; Start 03/09/17 at 21:00 Digoxin 0.125 mg 0.125 mg DAILY@13 PO Last administered on 03/15/17 11:13; Admin Dose 0.125 MG; Start 03/09/17 at 13:00 Sodium Chloride (1/2 NS) 1,000 ml @ 50 mls/hr Q20H IV Last administered on 01:30; Admin Dose 50 MLS/HR; Start 03/09/17 at 12:28 Lorazepam (Ativan) 0.5 mg Q8H PRN PO ANXIETY; Start 03/09/17 at 12:30 Ondansetron HCl (Zofran Tab) 4 mg Q6H PRN PO NAUSEA AND/OR VOMITING; Start 03/09/17 at 12:30 Acetaminophen/ Hydrocodone Bitart ([place] (5/325)) 1 tab Q6H PRN PO PAIN LEVEL 6 -10 Last administered on 03/15/17 20:53; Admin Dose 1 TAB; Start 03/09/17 at 12:30 Bisacodyl (Dulcolax) 5 mg DAILY PRN PO CONSTIPATION; Start 03/09/17 at 12:30 Carvedilol (Coreg) 3.125 mg BID PO Last administered on 03/16/17 09:58; Admin Dose 3.125 MG; Start 03/09/17 at 21:30 Enoxaparin Sodium (Lovenox) 40 mg DAILY SC Last administered on 03/16/17 10: 10; Admin Dose 40 MG; Start 03/11/17 at 17:00 Midodrine (Proamatine) 5 mg TID@,, PO Last administered on 03/16/17 10: 12; Admin Dose 5 MG; Start 03/13/17 at 05:30 Lorazepam (Ativan) 0.25 mg Q8H PRN IV ANXIETY Last administered on 03/14/17 03:09; Admin Dose 0.25 MG; Start 03/14/17 at 03:00 Famotidine 20 mg 20 mg DAILY PO Last administered on 03/16/17 09:58; Admin Dose 20 MG; Start 03/15/17 at 09:00 Levofloxacin/ Dextrose (Levaquin 500mg/ D5W 100 ml (Pmx)) 100 ml @ 100 mls/hr Q24H IVPB Last administered on 03/15/17 15:55; Admin Dose 100 MLS/HR; Start 03/14/17 at 16:00 Vitamin A/Vitamin D (Vitamin A & D Oint) 1 applic BID TOP Last administered on 03/16/17 09:59; Admin Dose 1 APPLIC; Start 03/15/17 at 14:00 DINA SORIANO Mar 16, 2017 13:02
[2017-03-16 14:26] LABS: ABNORMAL IP MESSAGE 1; HEMATOCRIT 29.9 % (37.0-47.0); HEMOGLOBIN 9.8 g/dl (12.0-16.0); MEAN CORPUSCULAR HEMOGLOBIN 30.1 pg (29.0-33.0); MEAN CORPUSCULAR HGB CONC 32.8 g/dl (32.0-37.0); MEAN CORPUSCULAR VOLUME 91.7 fl (82.0-101.0); MEAN PLATELET VOLUME 10.6 fl (7.4-10.4); PLATELET COUNT 291 10^3/UL (140-415); RED BLOOD COUNT 3.26 10^6/ul (4.20-5.40); RED CELL DISTRIBUTION WIDTH 15.9 % (11.5-14.5); WHITE BLOOD COUNT 15.2 10^3/ul (4.8-10.8)
[2017-03-16 14:54] LABS: ALBUMIN 2.7 g/dl (3.3-4.9); CALCIUM 7.9 mg/dl (8.4-10.2); CREATININE 0.86 mg/dl (0.44-1.00); MAGNESIUM 1.8 mg/dl (1.7-2.5); PHOSPHORUS 3.5 mg/dl (2.5-4.9); POTASSIUM 4.5 mmol/L (3.5-5.1)
[2017-03-16 15:20] LABS: POSITIVE DIFF @See below
--- NOTE | 2017-03-16 15:29 | PN ---
Date/Time of Note Date/Time of Note DATE: 03/16/17 TIME: 15:17 Assessment/Plan VTE Prophylaxis VTE Prophylaxis Intervention: LMWH Lines/Catheters IV Catheter Type (from Nrs): Peripheral IV Urinary Cath still in place: No Assessment/Plan Assessment/Plan 1. Acute on chronic respiratory failure secondary to PNA vs pleural effusions- stable - Continue on antibiotics - Will continue on NC and wean as tolerated to maintain O2 >90% - Pulmonology consulted and recommendations appreciated. Continue on daily pleurx drainage - Bronchodilators 2. Elevated troponin -mild, cardiology aware -no chest pain 3. Dysphagia - GI reconsulted and recommendations appreciated - PEG tubed placed yesterday and started on tube feeds. Pleasure feeds as well as tolerated 4. Bilateral pleural effusions, likely malignant - Pulmonology on board. Will need daily pleurx drainage. Drained last night with 300 from L and 50 from R - Continue on NC and wean as tolerating to keep saturations >90% 5. Tachycardia - Cardiology on board and consultation appreciated - On Digoxin and coreg 6. Hyponatremia - Has no been improving with rehydration - Will consult Nephrology for further recommendations - No acute symptoms - gentle IVF and monitor 7. Cardiomyopathy, congestive heart failure, acute on chronic ejection fraction 45% - Cardiology on board and recommendations appreciated. - Continue statin, asa, coreg as tolerated - ICD battery change done 8. 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 Merlos, oncology, outpatient. States patient is stage IV and not appropriate to continue chemotherapy at this time. Recommending Palliative care at this time. - Spoke with Family and they are not satisfied with plan and would like to continue to pursue treatment once patient discharged 9. Anemia of chronic disease - currently stable - will continue monitoring 10. Disposition - Nephrology consult for hyponatremia - SNF placement once medically stable. Family would like [facility] Subjective 24 Hr Interval Summary Free Text/Dictation Patient resting comfortably. Had episode of dry heaving this am. Per son, feels as if her mood has been more down today and concerned about her emotional wellbeing Exam/Review of Systems Vital Signs Vitals Vital Signs Date Time Temp Pulse Resp B/P Pulse Ox O2 Delivery O2 Flow Rate FiO2 03/16/17 14:44 5.0 03/16/17 14:44 112 20 97 Nasal Cannula 03/16/17 11:41 98.1 102/57 03/14/17 20:22 40 Intake and Output 03/15/17 03/15/17 03/16/17 15:00 23:00 07:00 Intake Total 600 ml 575 ml Output Total 350 ml Balance 600 ml 225 ml Exam General: patient resting comfortably. No acute distress. fatigued Head: Normocephalic atraumatic Eyes: EOMI, pupils reactive to light Neck: Supple, nontender, midline Respiratory: crackles at bases bilaterally Cardiovascular: irregular rhythm, tachycardia, no obvious murmurs Gastrointestinal: non-tender to palpation, bowel sounds heard. Neurological: Moves all extremities spontaneously Results Result Diagram: 03/15/17 0813 03/16/17 1355 Results 24 hrs Laboratory Tests Test 03/16/17 13:46 03/16/17 13:55 White Blood Count Pending Red Blood Count Pending Hemoglobin Pending Hematocrit Pending Mean Corpuscular Volume Pending Mean Corpuscular Hemoglobin Pending Mean Corpuscular Hemoglobin Concent Pending Red Cell Distribution Width Pending Platelet Count Pending Mean Platelet Volume Pending Sodium Level 130 L Potassium Level 4.5 Chloride Level 94 L Carbon Dioxide Level 27 Anion Gap 14 Blood Urea Nitrogen 12 Creatinine 0.86 Glucose Level 117 Calcium Level 7.9 L Phosphorus Level 3.5 Magnesium Level 1.8 Albumin 2.7 L Medications Medications Current Medications Ondansetron HCl/ Dextrose (Zofran Inj/D5W) 54 ml @ 108 mls/hr Q6H PRN IV NAUSEA AND/OR VOMITING Last administered on 03/12/17 12:57; Admin Dose 108 MLS /HR; Start 03/09/17 at 02:30 Metoclopramide HCl (Reglan) 10 mg Q6H PRN IV vomiting/nausea Last administered on 03/14/17 23:48; Admin Dose 10 MG; Start 03/09/17 at 02:30 Aspirin (Halfprin) 81 mg DAILY PO Last administered on 03/16/17 09:57; Admin Dose 81 MG; Start 03/09/17 at 12:30 Atorvastatin Calcium (Lipitor) 20 mg HS PO Last administered on 03/15/17 20: 53; Admin Dose 20 MG; Start 03/09/17 at 21:00 Digoxin 0.125 mg 0.125 mg DAILY@13 PO Last administered on 03/15/17 11:13; Admin Dose 0.125 MG; Start 03/09/17 at 13:00 Sodium Chloride (1/2 NS) 1,000 ml @ 50 mls/hr Q20H IV Last administered on 01:30; Admin Dose 50 MLS/HR; Start 03/09/17 at 12:28 Lorazepam (Ativan) 0.5 mg Q8H PRN PO ANXIETY; Start 03/09/17 at 12:30 Ondansetron HCl (Zofran Tab) 4 mg Q6H PRN PO NAUSEA AND/OR VOMITING; Start 03/09/17 at 12:30 Acetaminophen/ Hydrocodone Bitart ([place] (5/325)) 1 tab Q6H PRN PO PAIN LEVEL 6 -10 Last administered on 03/15/17 20:53; Admin Dose 1 TAB; Start 03/09/17 at 12:30 Bisacodyl (Dulcolax) 5 mg DAILY PRN PO CONSTIPATION; Start 03/09/17 at 12:30 Carvedilol (Coreg) 3.125 mg BID PO Last administered on 03/16/17 09:58; Admin Dose 3.125 MG; Start 03/09/17 at 21:30 Enoxaparin Sodium (Lovenox) 40 mg DAILY SC Last administered on 03/16/17 10: 10; Admin Dose 40 MG; Start 03/11/17 at 17:00 Midodrine (Proamatine) 5 mg TID@,,17 PO Last administered on 03/16/17 10: 12; Admin Dose 5 MG; Start 03/13/17 at 05:30 Lorazepam (Ativan) 0.25 mg Q8H PRN IV ANXIETY Last administered on 03/14/17 03:09; Admin Dose 0.25 MG; Start 03/14/17 at 03:00 Famotidine 20 mg 20 mg DAILY PO Last administered on 03/16/17 09:58; Admin Dose 20 MG; Start 03/15/17 at 09:00 Levofloxacin/ Dextrose (Levaquin 500mg/ D5W 100 ml (Pmx)) 100 ml @ 100 mls/hr Q24H IVPB Last administered on 03/15/17 15:55; Admin Dose 100 MLS/HR; Start 03/14/17 at 16:00 Vitamin A/Vitamin D (Vitamin A & D Oint) 1 applic BID TOP Last administered on 03/16/17t 09:59; Admin Dose 1 APPLIC; Start 03/15/17 at 14:00 GARY CROSS MD Mar 16, 2017 15:29
[2017-03-16 15:55] LABS: BURR CELLS 1+ (0-0); GIANT THROMBO% (M) 2 % (0-0); MONOCYTES % (M) 5 % (0-11); OVALOCYTES 1+ (0-0); PLATELET ESTIMATE NORMAL; POIKILOCYTOSIS 2+ (0-0); POLYCHROMASIA 3+ (0-0)
[2017-03-16] MEDS: DIGOXIN 0.125 MG TAB PO SCH (16:04)
[2017-03-16] MEDS: LEVOFLOXACIN 500MG/D5W (PMX) 100 ML IVPB SCH (16:04)
--- NOTE | 2017-03-16 19:50 | CONS ---
Date/Time of Note Date/Time of Note DATE: 03/16/17 TIME: 19:46 Assessment/Plan Assessment/Plan Chief Complaint/Hosp Course IMPRESSION: 1. Congestive heart failure exacerbation-systolic acute on chronic EF 35%by echo this admit 2. History of cardiomyopathy, decreased left ventricular ejection fraction. 35 % by echo this admit 3. Status post recent automatic implantable cardioverter-defibrillator generator change. 4. Pleural effusions, recurrent, status post PleurX catheter. 5. Metastatic breast carcinoma. 6. Hypoxia, improved. 7. Tachycardia consistent with sinus tachycardia. REcc: -Tele -continue coreg -Continue digoxin and will give IVP digoxin dose -Wean off midodrine which is pure afterload in setting of systolic failure -Continue lasix diuresis Problems: Consultation Date/Type/Reason Admit Date/Time Mar 08, 2017 at 22:13 Initial Consult Date 03/09/2017 Type of Consultation: cardiology Reason for Consultation CHF Referring Provider: RADHA TAVARES Exam/Review of Systems Vital Signs Vitals Vital Signs Date Time Temp Pulse Resp B/P Pulse Ox O2 Delivery O2 Flow Rate FiO2 03/16/17 16:14 98.2 120 16 100/55 97 03/16/17 16:00 Nasal Cannula 5.0 03/14/17 20:22 40 Intake and Output 03/15/17 03/15/17 03/16/17 15:00 23:00 07:00 Intake Total 600 ml 575 ml Output Total 350 ml Balance 600 ml 225 ml Exam Review of Systems: CONSTITUTIONAL: No fevers, chills. PULMONARY: No sob CARDIOVASCULAR: No chest pain/palpitations GASTROINTESTINAL: No nausea/vomiting. GENITOURINARY: No hematuria/dysuria. MUSCULOSKELETAL: No myagias/arthalgias. PSYCHIATRIC: The patient denies depression. NEUROLOGIC: No weakness Constitutional: alert, oriented Psych: no complaints Head: normocephalic ENMT: mucosa pink and moist Neck: jvd (9 cnm water), supple Respiratory: diminished breath sounds (at bases/B) Cardiovascular: other (tachycardia, RR) Gastrointestinal: non-tender, soft Musculoskeletal: muscle tone (normal) Extremities: edema (none) Neurological: other (No focal deficits) Results Result Diagram: 03/16/17 1346 03/16/17 1355 Results 24 hrs Laboratory Tests Test 03/16/17 13:46 03/16/17 13:55 White Blood Count 15.2 H Red Blood Count 3.26 L Hemoglobin 9.8 L Hematocrit 29.9 L Mean Corpuscular Volume 91.7 Mean Corpuscular Hemoglobin 30.1 Mean Corpuscular Hemoglobin Concent 32.8 Red Cell Distribution Width 15.9 H Platelet Count 291 Mean Platelet Volume 10.6 H Neutrophils % Segmented Neutrophils % (Manual) 95 H Lymphocytes % Monocytes % Monocytes % (Manual) 5 Eosinophils % Basophils % Nucleated Red Blood Cells % 0.0 Neutrophils # Lymphocytes # Monocytes # Absolute Monocytes (Manual) 0.7 Eosinophils # Basophils # Nucleated Red Blood Cells # Platelet Estimate NORMAL Giant Platelets 2 H Polychromasia 3+ Poikilocytosis 2+ Ovalocytes 1+ Sodium Level 130 L Potassium Level 4.5 Chloride Level 94 L Carbon Dioxide Level 27 Anion Gap 14 Blood Urea Nitrogen 12 Creatinine 0.86 Glucose Level 117 Calcium Level 7.9 L Phosphorus Level 3.5 Magnesium Level 1.8 Albumin 2.7 L Medications Medications Current Medications Ondansetron HCl/ Dextrose (Zofran Inj/D5W) 54 ml @ 108 mls/hr Q6H PRN IV NAUSEA AND/OR VOMITING Last administered on 03/12/17 12:57; Admin Dose 108 MLS /HR; Start 03/09/17 at 02:30 Metoclopramide HCl (Reglan) 10 mg Q6H PRN IV vomiting/nausea Last administered on 03/14/17 23:48; Admin Dose 10 MG; Start 03/09/17 at 02:30 Aspirin (Halfprin) 81 mg DAILY PO Last administered on 03/16/17 09:57; Admin Dose 81 MG; Start 03/09/17 at 12:30 Atorvastatin Calcium (Lipitor) 20 mg HS PO Last administered on 03/15/17 20: 53; Admin Dose 20 MG; Start 03/09/17 at 21:00 Digoxin 0.125 mg 0.125 mg DAILY@13 PO Last administered on 03/16/17 16:04; Admin Dose 0.125 MG; Start 03/09/17 at 13:00 Sodium Chloride (1/2 NS) 1,000 ml @ 50 mls/hr Q20H IV Last administered on 01:30; Admin Dose 50 MLS/HR; Start 03/09/17 at 12:28 Lorazepam (Ativan) 0.5 mg Q8H PRN PO ANXIETY; Start 03/09/17 at 12:30 Ondansetron HCl (Zofran Tab) 4 mg Q6H PRN PO NAUSEA AND/OR VOMITING; Start 03/09/17 at 12:30 Acetaminophen/ Hydrocodone Bitart ([place] (5/325)) 1 tab Q6H PRN PO PAIN LEVEL 6 -10 Last administered on 03/15/17 20:53; Admin Dose 1 TAB; Start 03/09/17 at 12:30 Bisacodyl (Dulcolax) 5 mg DAILY PRN PO CONSTIPATION; Start 03/09/17 at 12:30 Carvedilol (Coreg) 3.125 mg BID PO Last administered on 03/16/17 09:58; Admin Dose 3.125 MG; Start 03/09/17 at 21:30 Enoxaparin Sodium (Lovenox) 40 mg DAILY SC Last administered on 03/16/17 10: 10; Admin Dose 40 MG; Start 03/11/17 at 17:00 Midodrine (Proamatine) 5 mg TID@,,17 PO Last administered on 03/16/17 17: 58; Admin Dose 5 MG; Start 03/13/17 at 05:30 Lorazepam (Ativan) 0.25 mg Q8H PRN IV ANXIETY Last administered on 03/14/17 03:09; Admin Dose 0.25 MG; Start 03/14/17 at 03:00 Famotidine 20 mg 20 mg DAILY PO Last administered on 03/16/17 09:58; Admin Dose 20 MG; Start 03/15/17 at 09:00 Levofloxacin/ Dextrose (Levaquin 500mg/ D5W 100 ml (Pmx)) 100 ml @ 100 mls/hr Q24H IVPB Last administered on 03/16/17 16:04; Admin Dose 100 MLS/HR; Start 03/14/17 at 16:00 Vitamin A/Vitamin D (Vitamin A & D Oint) 1 applic BID TOP Last administered on 03/16/17 09:59; Admin Dose 1 APPLIC; Start 03/15/17 at 14:00 ROXIE VELARDE 16, 2017 19:50
[2017-03-16] MEDS ORDERED: DIGOXIN 500 MCG INJ IV SCH (20:30)
[2017-03-16 20:40] LABS: THYROID STIMULATING HORMONE 0.856 MIU/L (0.465-4.680)
[2017-03-16] MEDS: ATORVASTATIN 20 MG TAB PO SCH (21:32)
[2017-03-17] VITALS (12 sets, daily range): BP systolic 90–102; BP diastolic 46–62; PULSE 120–127; RESP 16–23
[2017-03-17] MEDS ORDERED: LIDOCAINE 1% (MPF) 5 ML VIAL SC ONE
[2017-03-17] MEDS: DIGOXIN 0.25 MG TAB GTB SCH ×2 (00:56→05:38)
[2017-03-17] MEDS: FUROSEMIDE 20 MG TAB PO SCH (05:19)
[2017-03-17 08:26] LABS: ABNORMAL IP MESSAGE 1; BASOPHILS % 0.2 % (0.0-2.0); EOSINOPHILS # 0.1 10^3/ul (0.0-0.5); EOSINOPHILS % 0.5 % (0.0-7.0); HEMATOCRIT 26.3 % (37.0-47.0); HEMOGLOBIN 8.8 g/dl (12.0-16.0); LYMPHOCYTES # 0.1 10^3/ul (0.8-2.9); LYMPHOCYTES % 0.9 % (15.0-51.0); MEAN CORPUSCULAR HEMOGLOBIN 30.4 pg (29.0-33.0); MEAN CORPUSCULAR HGB CONC 33.5 g/dl (32.0-37.0); MEAN PLATELET VOLUME 10.7 fl (7.4-10.4); MONOCYTE # 1.2 10^3/ul (0.3-0.9); MONOCYTES % 8.9 % (0.0-11.0); NEUTROPHIL # 11.5 10^3/ul (1.6-7.5); PLATELET COUNT 267 10^3/UL (140-415); RED BLOOD COUNT 2.89 10^6/ul (4.20-5.40); RED CELL DISTRIBUTION WIDTH 15.8 % (11.5-14.5)
[2017-03-17 08:27] LABS: POSITIVE DIFF @See below
[2017-03-17] MEDS: ALBUTEROL/IPRATROPIUM (NEB) 3 ML AMP HHN SCH ×3 (08:35→20:00)
[2017-03-17] MEDS ORDERED: MIDODRINE 5 MG TAB PO SCH (09:00)
[2017-03-17 09:03] LABS: ALBUMIN 2.2 g/dl (3.3-4.9); CALCIUM 8.1 mg/dl (8.4-10.2); CREATININE 0.77 mg/dl (0.44-1.00); MAGNESIUM 1.8 mg/dl (1.7-2.5); PHOSPHORUS 2.6 mg/dl (2.5-4.9); POTASSIUM 4.6 mmol/L (3.5-5.1)
[2017-03-17] MEDS ORDERED: METOCLOPRAMIDE (1 MG/ML) 10 ML CUP PO PRN (10:00)
--- NOTE | 2017-03-17 10:00 | PN ---
Date/Time of Note Date/Time of Note DATE: 03/17/17 TIME: 09:54 Assessment/Plan VTE Prophylaxis VTE Prophylaxis Intervention: SCD's Lines/Catheters IV Catheter Type (from Nrs): Peripheral IV Urinary Cath still in place: No Assessment/Plan Chief Complaint/Hosp Course Summary Assessment and Plan: Assessment: Dysphagia- s/p EGD with dilation. PEG 03/15/17 Impression: Extrinsic compression midesophagus Post uneventful PEG Placement of [place] 20 GT Acute on chronic respiratory failure Elevated troponin Bilateral pleural effusions, likely malignant Tachycardia Hyponatremia- stable Cardiomyopathy H/o Metastatic breast cancer with bone and pelvic mets Anemia of chronic disease Plan: Tolerated TF overnight- will increase Continue oral intake for pleasure Gastrostomy tube and site routine care Utilize anti-emetic medication as needed- changed reglan to PO Pt seen in collaboration with Dr. Chaves Subjective: Course reviewed with nursing staff Patient interviewed and examined All labs, imaging and other results reviewed The patient feeling better today, tolerated Tf over night, will continue to slowly increase as tolerated. Patient may still eat for oral gratification. PHYSICAL EXAMINATION: GENERAL: Well developed, well nourished, alert & oriented x 3, in no acute distress SKIN: No lesions, no stigmata chronic liver disease, no evidence of bleeding diathesis, PEG in place LYMPHATIC: No palpable lymphadenopathy. HEAD: Normocephalic, atraumatic, no tenderness. EYES: Pupils equal reactive to light and accommodation, full extraocular movements, sclera clear, non-icteric, no discharge. EARS/NOSE AND THROAT: Ears normal, nose normal, oropharynx normal, oral membranes well hydrated without lesions. NECK: Supple, no masses, thyroid normal, JVP within normal limits, carotids normal without bruits. CHEST: Inspection within normal limits. CARDIOVASCULAR: Heart: Regular rate and rhythm, no murmurs, gallops or rubs. Peripheral pulses present within normal limits, no cyanosis, clubbing or edemas. No pulsatile abdominal mass RESPIRATORY: Rales- bilat pleural catheters in place GASTROINTESTINAL AND LIVER: Abdomen: Soft, non tenderness, non-distended, no hernias, no masses, no organomegaly, no ascites, no guarding, no rebound tenderness, normoactive bowel sounds. Rectal: Deferred. Problems: Exam/Review of Systems Vital Signs Vitals Vital Signs Date Time Temp Pulse Resp B/P Pulse Ox O2 Delivery O2 Flow Rate FiO2 03/17/17 09:01 121 03/17/17 08:38 18 94 Nasal Cannula 5.0 03/17/17 07:26 98.0 98/62 03/14/17 20:22 40 Intake and Output 03/16/17 03/16/17 03/17/17 15:00 23:00 07:00 Intake Total 500 ml Balance 500 ml Results Result Diagram: 03/17/17 0815 03/17/17 0815 Results 24 hrs Laboratory Tests Test 03/16/17 13:46 03/16/17 13:55 03/17/17 08:15 White Blood Count 15.2 H 13.0 H Red Blood Count 3.26 L 2.89 L Hemoglobin 9.8 L 8.8 L Hematocrit 29.9 L 26.3 L Mean Corpuscular Volume 91.7 91.0 Mean Corpuscular Hemoglobin 30.1 30.4 Mean Corpuscular Hemoglobin Concent 32.8 33.5 Red Cell Distribution Width 15.9 H 15.8 H Platelet Count 291 267 Mean Platelet Volume 10.6 H 10.7 H Neutrophils % 88.0 H Segmented Neutrophils % (Manual) 95 H Lymphocytes % 0.9 L Monocytes % 8.9 Monocytes % (Manual) 5 Eosinophils % 0.5 Basophils % 0.2 Nucleated Red Blood Cells % 0.0 0.0 Neutrophils # 11.5 H Lymphocytes # 0.1 L Monocytes # 1.2 H Absolute Monocytes (Manual) 0.7 Eosinophils # 0.1 Basophils # 0.0 Nucleated Red Blood Cells # 0.0 Platelet Estimate NORMAL Giant Platelets 2 H Polychromasia 3+ Poikilocytosis 2+ Ovalocytes 1+ Sodium Level 130 L 128 L Potassium Level 4.5 4.6 Chloride Level 94 L 95 L Carbon Dioxide Level 27 27 Anion Gap 14 11 Blood Urea Nitrogen 12 17 Creatinine 0.86 0.77 Glucose Level 117 188 Calcium Level 7.9 L 8.1 L Phosphorus Level 3.5 2.6 Magnesium Level 1.8 1.8 B-Type Natriuretic Peptide 6000 H Albumin 2.7 L 2.2 L Thyroid Stimulating Hormone (TSH) 0.856 Medications Medications Current Medications Ondansetron HCl/ Dextrose (Zofran Inj/D5W) 54 ml @ 108 mls/hr Q6H PRN IV NAUSEA AND/OR VOMITING Last administered on 03/12/17t 12:57; Admin Dose 108 MLS /HR; Start 03/09/17 at 02:30 Metoclopramide HCl (Reglan) 10 mg Q6H PRN IV vomiting/nausea Last administered on 03/14/17 23:48; Admin Dose 10 MG; Start 03/09/17 at 02:30 Aspirin (Halfprin) 81 mg DAILY PO Last administered on 03/16/17 09:57; Admin Dose 81 MG; Start 03/09/17 at 12:30 Atorvastatin Calcium (Lipitor) 20 mg HS PO Last administered on 03/16/17 21: 32; Admin Dose 20 MG; Start 03/09/17 at 21:00 Digoxin (Digoxin) 0.125 mg DAILY@13 PO Last administered on 03/16/17 16:04; Admin Dose 0.125 MG; Start 03/09/17 at 13:00 Lorazepam (Ativan) 0.5 mg Q8H PRN PO ANXIETY; Start 03/09/17 at 12:30 Ondansetron HCl (Zofran Tab) 4 mg Q6H PRN PO NAUSEA AND/OR VOMITING; Start 03/09/17 at 12:30 Acetaminophen/ Hydrocodone Bitart ([place] (5/325)) 1 tab Q6H PRN PO PAIN LEVEL 6 -10 Last administered on 03/15/17 20:53; Admin Dose 1 TAB; Start 03/09/17 at 12:30 Bisacodyl (Dulcolax) 5 mg DAILY PRN PO CONSTIPATION; Start 03/09/17 at 12:30 Carvedilol (Coreg) 3.125 mg BID PO Last administered on 03/16/17 09:58; Admin Dose 3.125 MG; Start 03/09/17 at 21:30 Enoxaparin Sodium (Lovenox) 40 mg DAILY SC Last administered on 03/16/17 10: 10; Admin Dose 40 MG; Start 03/11/17 at 17:00 Lorazepam (Ativan) 0.25 mg Q8H PRN IV ANXIETY Last administered on 03/14/17 03:09; Admin Dose 0.25 MG; Start 03/14/17 at 03:00 Famotidine 20 mg 20 mg DAILY PO Last administered on 03/16/17 09:58; Admin Dose 20 MG; Start 03/15/17 at 09:00 Levofloxacin/ Dextrose (Levaquin 500mg/ D5W 100 ml (Pmx)) 100 ml @ 100 mls/hr Q24H IVPB Last administered on 03/16/17 16:04; Admin Dose 100 MLS/HR; Start 03/14/17 at 16:00 Vitamin A/Vitamin D (Vitamin A & D Oint) 1 applic BID TOP Last administered on 03/16/17 21:32; Admin Dose 1 APPLIC; Start 03/15/17 at 14:00 Midodrine (Proamatine) 2.5 mg TID@,,17 PO ; Start 03/17/17 at 09:00 DINA SORIANO Mar 17, 2017 10:00
[2017-03-17] MEDS: ASPIRIN (EC) 81 MG TAB PO SCH (10:48)
[2017-03-17] MEDS: MIDODRINE 2.5 MG TAB PO SCH ×3 (10:49→21:32)
[2017-03-17] MEDS: FAMOTIDINE 20 MG TAB PO SCH (10:49)
[2017-03-17] MEDS: ENOXAPARIN 40 MG/0.4 ML SYG SC SCH (10:53)
[2017-03-17] MEDS: VITAMIN A & D 5 GM OINT PACKET TOP SCH ×2 (10:57→21:27)
[2017-03-17] MEDS: DIGOXIN 0.125 MG TAB PO SCH (12:45)
--- NOTE | 2017-03-17 13:04 | CONS ---
Date/Time of Note Date/Time of Note DATE: 03/17/17 TIME: 12:49 Assessment/Plan Assessment/Plan Chief Complaint/Hosp Course 81 yo with #Metastatic ER+ Breast cancer to the lungs #Bilateral malignant pleural effusions #Dysphagia 2/2 to mass compression - pt s/p EGD and dilation #CHF with atrial fibrillation and pacemaker in place Plan: -agree that patient it too debilitated for any further treatments -as explained to the son, the patient received all the appropriate and standard care medications for her disease. Unfortunately now she is too debilitated for further chemotherapy -continue meds for CHF exacerbation -continue to monitor drainage from pleurex catheter -prognosis poor Problems: Consultation Date/Type/Reason Admit Date/Time Mar 08, 2017 at 22:13 Date of Consultation: Mar 17, 2017 Type of Consultation: Oncology Reason for Consultation metastatic breast cancer Referring Provider: GARY CROSS MD Hx of Present Illness Ms Candi Real history is as follows: 1998 patient was diagnosed with right-sided breast cancer in [facility]. She underwent right modified radical mastectomy followed by chemotherapy and 5 years of tamoxifen 2013 pt began to feel bone pains and fatigue 12/2013 PET/CT was done which revealed multiple skeletal lucencies in the spine, pelvis, shoulders, sternum and femurs. No evidence of visceral metastases 12/2013 patient underwent pelvic bone biopsy which revealed metastatic carcinoma from breast primary, ER+,IA+,Her 2 negative 01/2013-2015 -patient was treated with Afinitor + Aromasin 10/2015 PET/CT revealed disease progression with increase in size of axillary adenopathy in addition to increase in bony lytic lesions a small amount of ascites 11/2015 patient was started on Palbiciclib/Faslodex Preparations primary oncologist over the last couple months patient has had pleural effusions, shortness of breath and cough. She had a pigtail catheter in her bilateral pleural cavities and was discharged [facility] weeks ago but now comes in with recurrent pleural effusions. Given patient's poor prognosis and performance status is been decided to proceed with palliative treatment options. We have been consult and is a second opinion to see if there any further chemotherapeutic options. Since admission pt had a PEG placed on 03/15/17 as well as EGD with dilation. Constitutional: no complaints Eyes: no complaints ENT: no complaints Respiratory: shortness of breath Cardiovascular: no complaints Gastrointestinal: decreased appetite, nausea, vomiting Genitourinary: no complaints Skin: no complaints Neurologic: no complaints Psychological: no complaints Past Medical History 1. Breast cancer in 1998, post-surgery, chemoradiation recurrent disease 2013. 2. Hyperlipidemia. 3. Atrial fibrillation. 4. Permanent pacemaker. Past Surgical History Hypertension, coronary artery disease. Past Surgical Hx: endoscopy, other Social History Does not smoke, does not drink. , has 3 adult supportive sons. Smoking Status: Never smoker Exam/Review of Systems Vital Signs Vitals Vital Signs Date Time Temp Pulse Resp B/P Pulse Ox O2 Delivery O2 Flow Rate FiO2 03/17/17 12:45 123 03/17/17 11:31 98.1 16 99/54 97 03/17/17 08:38 Nasal Cannula 5.0 03/14/17 20:22 40 Intake and Output 03/16/17 03/16/17 03/17/17 15:00 23:00 07:00 Intake Total 500 ml Balance 500 ml Exam Constitutional: alert, oriented Psych: no complaints Head: normocephalic Eyes: nl conjunctiva ENMT: nl external ears & nose Neck: non-tender, supple Respiratory: clear to auscultation Cardiovascular: regular rate and rhythm Gastrointestinal: soft Musculoskeletal: nl extremities to inspection Results Result Diagram: 03/17/1715 03/17/17 0815 Results 24 hrs Laboratory Tests Test 03/16/17 13:46 03/16/17 13:55 03/17/17 08:15 03/17/17 11:06 White Blood Count 15.2 H 13.0 H Red Blood Count 3.26 L 2.89 L Hemoglobin 9.8 L 8.8 L Hematocrit 29.9 L 26.3 L Mean Corpuscular Volume 91.7 91.0 Mean Corpuscular Hemoglobin 30.1 30.4 Mean Corpuscular Hemoglobin Concent 32.8 33.5 Red Cell Distribution Width 15.9 H 15.8 H Platelet Count 291 267 Mean Platelet Volume 10.6 H 10.7 H Neutrophils % 88.0 H Segmented Neutrophils % (Manual) 95 H Lymphocytes % 0.9 L Monocytes % 8.9 Monocytes % (Manual) 5 Eosinophils % 0.5 Basophils % 0.2 Nucleated Red Blood Cells % 0.0 0.0 Neutrophils # 11.5 H Lymphocytes # 0.1 L Monocytes # 1.2 H Absolute Monocytes (Manual) 0.7 Eosinophils # 0.1 Basophils # 0.0 Nucleated Red Blood Cells # 0.0 Platelet Estimate NORMAL Giant Platelets 2 H Polychromasia 3+ Poikilocytosis 2+ Ovalocytes 1+ Sodium Level 130 L 128 L Potassium Level 4.5 4.6 Chloride Level 94 L 95 L Carbon Dioxide Level 27 27 Anion Gap 14 11 Blood Urea Nitrogen 12 17 Creatinine 0.86 0.77 Glucose Level 117 188 Calcium Level 7.9 L 8.1 L Phosphorus Level 3.5 2.6 Magnesium Level 1.8 1.8 B-Type Natriuretic Peptide 6000 H Albumin 2.7 L 2.2 L Thyroid Stimulating Hormone (TSH) 0.856 Osmolality 273 L Medications Medications Current Medications Ondansetron HCl/ Dextrose (Zofran Inj/D5W) 54 ml @ 108 mls/hr Q6H PRN IV NAUSEA AND/OR VOMITING Last administered on 03/12/17 12:57; Admin Dose 108 MLS /HR; Start 03/09/17 at 02:30 Aspirin (Halfprin) 81 mg DAILY PO Last administered on 03/17/17 10:48; Admin Dose 81 MG; Start 03/09/17 at 12:30 Atorvastatin Calcium (Lipitor) 20 mg HS PO Last administered on 03/16/17 21: 32; Admin Dose 20 MG; Start 03/09/17 at 21:00 Digoxin (Digoxin) 0.125 mg DAILY@13 PO Last administered on 03/16/17 16:04; Admin Dose 0.125 MG; Start 03/09/17 at 13:00 Lorazepam (Ativan) 0.5 mg Q8H PRN PO ANXIETY; Start 03/09/17 at 12:30 Ondansetron HCl (Zofran Tab) 4 mg Q6H PRN PO NAUSEA AND/OR VOMITING; Start 03/09/17 at 12:30 Acetaminophen/ Hydrocodone Bitart ([place] (5/325)) 1 tab Q6H PRN PO PAIN LEVEL 6 -10 Last administered on 03/15/17 20:53; Admin Dose 1 TAB; Start 03/09/17 at 12:30 Bisacodyl (Dulcolax) 5 mg DAILY PRN PO CONSTIPATION; Start 03/09/17 at 12:30 Carvedilol (Coreg) 3.125 mg BID PO Last administered on 03/16/17 09:58; Admin Dose 3.125 MG; Start 03/09/17 at 21:30 Enoxaparin Sodium (Lovenox) 40 mg DAILY SC Last administered on 03/17/17 10: 53; Admin Dose 40 MG; Start 03/11/17 at 17:00 Lorazepam (Ativan) 0.25 mg Q8H PRN IV ANXIETY Last administered on 03/14/17 03:09; Admin Dose 0.25 MG; Start 03/14/17 at 03:00 Famotidine 20 mg 20 mg DAILY PO Last administered on 03/17/17 10:49; Admin Dose 20 MG; Start 03/15/17 at 09:00 Levofloxacin/ Dextrose (Levaquin 500mg/ D5W 100 ml (Pmx)) 100 ml @ 100 mls/hr Q24H IVPB Last administered on 03/16/17 16:04; Admin Dose 100 MLS/HR; Start 03/14/17 at 16:00 Vitamin A/Vitamin D (Vitamin A & D Oint) 1 applic BID TOP Last administered on 03/17/17 10:57; Admin Dose 1 APPLIC; Start 03/15/17 at 14:00 Midodrine (Proamatine) 2.5 mg TID@,,17 PO Last administered on 03/17/17 10:49; Admin Dose 2.5 MG; Start 03/17/17 at 09:00 Metoclopramide HCl (Reglan Liq) 10 mg Q6H PRN PO NAUSEA AND/OR VOMITING; Start 03/17/17 at 10:00 BRODIE PEREZ M.D. Mar 17, 2017 12:59
--- NOTE | 2017-03-17 13:32 | PN ---
Date/Time of Note Date/Time of Note DATE: 03/17/17 TIME: 13:27 Outpatient Progress Note HPI No pain No bleeding weak and tired improved SOB Review of Systems Const: No Fever, no chills, no Wt. loss, no Fatigue, normal appetite, no diaphoresis. Eyes: No pain, no discharge, no redness, no visual change, no foreign body. ENT: No pain, no bleeding, no congestion, no sore throat, no dysphagia, no discharge or rhinitis. Lymph: No adenopathy, no tender nodes, no lymphedema. Resp: No SOB, no cough, no sputum, no wheezing, no chest pain. CV: No chest pain, no palpitaions, no SETH, no PND, no edema. GI: Normal appetite, no pain, no nausea, no vomiting, no diarrhea, no blood, no constipation. : No frequency, no urgency, no dysuria, no hematuria, no flank pain, no discharge, no bleeding. Musc: No bone/joint pain, no back pain, no neck pain, no knee pain, no restricted ROM. Skin: No rash, no skin lesions, no erythema, no laceration, no bruising, no pruritus. Neuro: No JIMENEZ, no dizziness, no syncope, no seizure, no focal-weakness. Endo: No polyuria, no polydypsia, no dry-skin, no temp-intolerance. Psych: No hallucinations, no depression, no anxiety, no suicidal ideation. Ext: No edema, no pain, no ulcer, no weakness. Physical Exam Vital Signs Date Time Temp Pulse Resp B/P Pulse Ox O2 Delivery O2 Flow Rate FiO2 03/17/17 12:45 123 03/17/17 11:31 98.1 16 99/54 97 03/17/17 08:38 Nasal Cannula 5.0 03/14/17 20:22 40 Intake and Output 03/16/17 03/16/17 03/17/17 15:00 23:00 07:00 Intake Total 500 ml Balance 500 ml General Appearance: A [] year-old [] who appears well-developed, well-nourished , in no acute distress. HEENT: Head normocephalic, atraumatic. Pupils equal, round, reactive to light and accommodate. Sclerae are no jaundice. Nasal turbinates pink without erythema or nasal discharge. Mucous membranes pink and moist without lesions. Oropharynx clear without any exudate or discharge. NECK: Supple. Trachea midline, No thyromegaly, No cervical lymphadenopathy, No mass, No carotid bruits, No JVD, Carotid pulses 2+ bilaterally. PULMONARY: Clear to auscultaion bilaterally, No retractions, Chest expansion symmetric bilaterally, no rales, no ronchi, no dulness on percussion. CARDIAC: Normal SI and S2, Regular rate and rythm, no murmur, gallop, or rub. GASTROINTESTINAL: Abdomen is soft, non-tender, Non Rigid, No distention, Positive bowel sounds x4 quadrants, Liver normal. SKIN: Warm, dry, no rash, no bruise, no echmosis. EXTREMITIES: Bilateral lower extremities normal, no edema, no phlabitus, pulse palpable, no contracture. MUSCULOSKELETAL: Spine Normal, Non-tender, Normal range of motion, No swelling, no deformity, no clubbing, or cyanosis, the patient has no edema to bilateral lower extremities, dorsalis pedis pulses palpable bilaterally. NEUROLOGIC: The patient is awake, alert, oriented, responding to yes/no questions appropriately, moving all extremities, cranial nerve intact, normal strenght, normal power, normal coordination, normal gait. Result Diagram: 03/17/1781403/17/17814 Allergies Coded Allergies: No Known Allergies (Verified Allergy, Unknown, 01/31/17) Family Hx Patient History: Cardiac disorder 33 MOTHER Assessment/Plan Advanced metastatic breast CA On multiple anti cancer agents latest Palbociclib + faslodex Bilateral malignant pleural effusion Drainage thoracenthesis tubes Later +- pleurodesis Supportive care Albumin D/W family prognosis is poor DNR DNI per pt request Medications Home Meds Active Scripts Metoclopramide Hcl* (Metoclopramide Hcl*) 10 Mg Tablet, 10 MG PO Q6 for 30 Days , #120 TAB Prov:DIMA COVARRUBIAS 03/06/17 Lisinopril* (Lisinopril*) 5 Mg Tablet, 2.5 MG PO DAILY for 30 Days, #30 TAB Prov:DIMA COVARRUBIAS 03/06/17 Digoxin* (Digitek*) 125 Mcg Tablet, 0.125 MG PO DAILY@13 for 30 Days, #30 TAB Prov:DIMA COVARRUBIAS 03/06/17 Carvedilol* (Carvedilol*) 6.25 Mg Tablet, 6.25 MG PO BID for 30 Days, #60 TAB Prov:DIMA COVARRUBIAS 03/06/17 Albuterol Sulfate* (Proair HFA*) 8.5 Gm Hfa.aer.ad, 2 PUFF INH Q4 for COUGH, #1 INHALER Prov:DIMA CUEVAS MD 01/06/17 Reported Medications Aspirin (Low Dose Aspirin) 81 Mg Tablet., 81 MG PO DAILY, #30 TAB 01/06/17 Pantoprazole* (Protonix*) 40 Mg Tablet.dr, 40 MG PO DAILY, TAB 09/16/14 Atorvastatin Calcium* (Atorvastatin Calcium*) 20 Mg Tablet, 20 MG PO HS, TAB 05/07/14 RADHA SHEA Mar 17, 2017 13:32
--- NOTE | 2017-03-17 13:55 | CONS ---
Date/Time of Note Date/Time of Note DATE: 03/17/17 TIME: 13:49 Assessment/Plan Assessment/Plan Chief Complaint/Hosp Course IMPRESSION: 1. Congestive heart failure exacerbation-systolic acute on chronic EF 35%by echo this admit 2. History of cardiomyopathy, decreased left ventricular ejection fraction. 35 % by echo this admit 3. Status post recent automatic implantable cardioverter-defibrillator generator change. 4. Pleural effusions, recurrent, status post PleurX catheter. 5. Metastatic breast carcinoma. 6. Hypoxia, improved. 7. Tachycardia consistent with sinus tachycardia. REcc: -Tele -continue coreg -Continue digoxin -Wean off midodrine which is pure afterload in setting of systolic failure -Hold lasix diuresis and give IVF bolus and follow hr closely Problems: Consultation Date/Type/Reason Admit Date/Time Mar 08, 2017 at 22:13 Initial Consult Date 03/09/2017 Type of Consultation: cardiology Reason for Consultation cardiomyopathy Referring Provider: GARY CROSS MD Exam/Review of Systems Vital Signs Vitals Vital Signs Date Time Temp Pulse Resp B/P Pulse Ox O2 Delivery O2 Flow Rate FiO2 03/17/17 12:45 123 03/17/17 11:31 98.1 16 99/54 97 03/17/17 08:38 Nasal Cannula 5.0 03/14/17 20:22 40 Intake and Output 03/16/17 03/16/17 03/17/17 15:00 23:00 07:00 Intake Total 500 ml Balance 500 ml Exam Review of Systems: CONSTITUTIONAL: No fevers, chills. PULMONARY: No sob CARDIOVASCULAR: No chest pain/palpitations GASTROINTESTINAL: No nausea/vomiting. GENITOURINARY: No hematuria/dysuria. MUSCULOSKELETAL: No myagias/arthalgias. PSYCHIATRIC: The patient denies depression. NEUROLOGIC: No weakness Constitutional: alert, oriented Psych: no complaints Head: normocephalic ENMT: mucosa pink and moist Neck: jvd (9 cm water), supple Respiratory: diminished breath sounds (at bases/B) Cardiovascular: other (tachycardic) Gastrointestinal: non-tender, soft Musculoskeletal: muscle weakness (mild generalized) Extremities: edema (none) Neurological: other (No focal deficits) Results Result Diagram: 03/17/17 0815 03/17/17 0815 Results 24 hrs Laboratory Tests Test 03/16/17 13:55 03/17/17 08:15 03/17/17 11:06 Sodium Level 130 L 128 L Potassium Level 4.5 4.6 Chloride Level 94 L 95 L Carbon Dioxide Level 27 27 Anion Gap 14 11 Blood Urea Nitrogen 12 17 Creatinine 0.86 0.77 Glucose Level 117 188 Calcium Level 7.9 L 8.1 L Phosphorus Level 3.5 2.6 Magnesium Level 1.8 1.8 B-Type Natriuretic Peptide 6000 H Albumin 2.7 L 2.2 L Thyroid Stimulating Hormone (TSH) 0.856 White Blood Count 13.0 H Red Blood Count 2.89 L Hemoglobin 8.8 L Hematocrit 26.3 L Mean Corpuscular Volume 91.0 Mean Corpuscular Hemoglobin 30.4 Mean Corpuscular Hemoglobin Concent 33.5 Red Cell Distribution Width 15.8 H Platelet Count 267 Mean Platelet Volume 10.7 H Neutrophils % 88.0 H Lymphocytes % 0.9 L Monocytes % 8.9 Eosinophils % 0.5 Basophils % 0.2 Nucleated Red Blood Cells % 0.0 Neutrophils # 11.5 H Lymphocytes # 0.1 L Monocytes # 1.2 H Eosinophils # 0.1 Basophils # 0.0 Nucleated Red Blood Cells # 0.0 Osmolality 273 L Medications Medications Current Medications Ondansetron HCl/ Dextrose (Zofran Inj/D5W) 54 ml @ 108 mls/hr Q6H PRN IV NAUSEA AND/OR VOMITING Last administered on 03/12/17 12:57; Admin Dose 108 MLS /HR; Start 03/09/17 at 02:30 Aspirin (Halfprin) 81 mg DAILY PO Last administered on 03/17/17 10:48; Admin Dose 81 MG; Start 03/09/17 at 12:30 Atorvastatin Calcium (Lipitor) 20 mg HS PO Last administered on 03/16/17 21: 32; Admin Dose 20 MG; Start 03/09/17 at 21:00 Digoxin (Digoxin) 0.125 mg DAILY@13 PO Last administered on 03/17/17 12:45; Admin Dose 0.125 MG; Start 03/09/17 at 13:00 Lorazepam (Ativan) 0.5 mg Q8H PRN PO ANXIETY; Start 03/09/17 at 12:30 Ondansetron HCl (Zofran Tab) 4 mg Q6H PRN PO NAUSEA AND/OR VOMITING; Start 03/09/17 at 12:30 Acetaminophen/ Hydrocodone Bitart ([place] (5/325)) 1 tab Q6H PRN PO PAIN LEVEL 6 -10 Last administered on 03/15/17 20:53; Admin Dose 1 TAB; Start 03/09/17 at 12:30 Bisacodyl (Dulcolax) 5 mg DAILY PRN PO CONSTIPATION; Start 03/09/17 at 12:30 Carvedilol (Coreg) 3.125 mg BID PO Last administered on 03/16/17 09:58; Admin Dose 3.125 MG; Start 03/09/17 at 21:30 Enoxaparin Sodium (Lovenox) 40 mg DAILY SC Last administered on 03/17/17 10: 53; Admin Dose 40 MG; Start 03/11/17 at 17:00 Lorazepam (Ativan) 0.25 mg Q8H PRN IV ANXIETY Last administered on 03/14/17 03:09; Admin Dose 0.25 MG; Start 03/14/17 at 03:00 Famotidine 20 mg 20 mg DAILY PO Last administered on 03/17/17 10:49; Admin Dose 20 MG; Start 03/15/17 at 09:00 Levofloxacin/ Dextrose (Levaquin 500mg/ D5W 100 ml (Pmx)) 100 ml @ 100 mls/hr Q24H IVPB Last administered on 03/16/17 16:04; Admin Dose 100 MLS/HR; Start 03/14/17 at 16:00 Vitamin A/Vitamin D (Vitamin A & D Oint) 1 applic BID TOP Last administered on 03/17/17 10:57; Admin Dose 1 APPLIC; Start 03/15/17 at 14:00 Midodrine (Proamatine) 2.5 mg TID@,,17 PO Last administered on 03/17/17 12:44; Admin Dose 2.5 MG; Start 03/17/17 at 09:00 Metoclopramide HCl (Reglan Liq) 10 mg Q6H PRN PO NAUSEA AND/OR VOMITING Last administered on 03/17/17 12:45; Admin Dose 10 MG; Start 03/17/17 at 10:00 ROXIE VELARDE 17, 2017 13:55
[2017-03-17] MEDS ORDERED: SOD CHLORIDE 0.9% 500 ML IV ONE (14:00)
--- NOTE | 2017-03-17 17:38 | PN ---
Date/Time of Note Date/Time of Note DATE: 03/17/17 TIME: 17:32 Assessment/Plan VTE Prophylaxis VTE Prophylaxis Intervention: LMWH Lines/Catheters IV Catheter Type (from Nrs): Peripheral IV Urinary Cath still in place: No Assessment/Plan Assessment/Plan 1. Acute on chronic respiratory failure secondary to PNA vs pleural effusions - Continue on antibiotics - Will continue on NC and wean as tolerated to maintain O2 >90% - Pulmonology consulted and recommendations appreciated. Continue on daily pleurx drainage at night - Bronchodilators 2. Elevated troponin -mild, cardiology aware -no chest pain 3. Dysphagia - GI reconsulted and recommendations appreciated - PEG tubed and tolerating tube feeds at 20cc/hr. Per GI will slowly increase to goal of 50. Pleasure feeds as well as tolerated 4. Bilateral pleural effusions, likely malignant - Pulmonology on board. Will need daily pleurx drainage. - Continue on NC and wean as tolerating to keep saturations >90% 5. Tachycardia - Cardiology on board and consultation appreciated - On Digoxin and coreg 6. Hyponatremia - Has no been improving with rehydration - Nephrology on board and most likely SIADH. Will fluid restrict for now. Hold off on salt tabs given patients CHF history - No acute symptoms - gentle IVF and monitor 7. Cardiomyopathy, congestive heart failure, acute on chronic ejection fraction 45% - Cardiology on board and recommendations appreciated. - Continue statin, asa, coreg as tolerated - ICD battery change done 8. 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 Merlos, oncology, outpatient. States patient is stage IV and not appropriate to continue chemotherapy at this time. Recommending Palliative care at this time. - Spoke with Family and they are not satisfied with plan and would like to continue to pursue treatment once patient discharged - Dr. Ray offered secondary opinion today and agrees with Dr. Merlos in that patient is too debilitated to undergo chemotherapy 9. Anemia of chronic disease - currently stable - will continue monitoring 10. Disposition - Monitor sodium levels - SNF placement. Family would like [facility] 24 Hr Interval Summary Free Text/Dictation Patient resting comfortably and states respiratory status improving. Still experiencing nausea but no vomiting. Tolerating tube feeds at 20cc/hr. No acute overnight events. Exam/Review of Systems Vital Signs Vitals Vital Signs Date Time Temp Pulse Resp B/P Pulse Ox O2 Delivery O2 Flow Rate FiO2 03/17/17 16:38 127 03/17/17 15:38 97.7 16 102/59 96 03/17/17 14:56 5.0 03/17/17 14:56 Nasal Cannula 03/14/17 20:22 40 Intake and Output 03/16/17 03/16/17 03/17/17 15:00 23:00 07:00 Intake Total 500 ml Balance 500 ml Exam General: patient resting comfortably. No acute distress. Head: Normocephalic atraumatic Eyes: EOMI, pupils reactive to light Neck: Supple, nontender, midline Respiratory: crackles at bases bilaterally Cardiovascular: irregular rhythm, tachycardia, no obvious murmurs Gastrointestinal: non-tender to palpation, bowel sounds heard. Neurological: Moves all extremities spontaneously Results Result Diagram: 03/17/17 0815 03/17/17 0815 Results 24 hrs Laboratory Tests Test 03/17/17 08:15 03/17/17 11:06 White Blood Count 13.0 H Red Blood Count 2.89 L Hemoglobin 8.8 L Hematocrit 26.3 L Mean Corpuscular Volume 91.0 Mean Corpuscular Hemoglobin 30.4 Mean Corpuscular Hemoglobin Concent 33.5 Red Cell Distribution Width 15.8 H Platelet Count 267 Mean Platelet Volume 10.7 H Neutrophils % 88.0 H Lymphocytes % 0.9 L Monocytes % 8.9 Eosinophils % 0.5 Basophils % 0.2 Nucleated Red Blood Cells % 0.0 Neutrophils # 11.5 H Lymphocytes # 0.1 L Monocytes # 1.2 H Eosinophils # 0.1 Basophils # 0.0 Nucleated Red Blood Cells # 0.0 Sodium Level 128 L Potassium Level 4.6 Chloride Level 95 L Carbon Dioxide Level 27 Anion Gap 11 Blood Urea Nitrogen 17 Creatinine 0.77 Glucose Level 188 Calcium Level 8.1 L Phosphorus Level 2.6 Magnesium Level 1.8 Albumin 2.2 L Osmolality 273 L Medications Medications Current Medications Ondansetron HCl/ Dextrose (Zofran Inj/D5W) 54 ml @ 108 mls/hr Q6H PRN IV NAUSEA AND/OR VOMITING Last administered on 03/12/17 12:57; Admin Dose 108 MLS /HR; Start 03/09/17 at 02:30 Aspirin (Halfprin) 81 mg DAILY PO Last administered on 11/17/17at 10:48; Admin Dose 81 MG; Start 03/09/17 at 12:30 Atorvastatin Calcium (Lipitor) 20 mg HS PO Last administered on 03/16/17 21: 32; Admin Dose 20 MG; Start 03/09/17 at 21:00 Digoxin (Digoxin) 0.125 mg DAILY@13 PO Last administered on 03/17/17 12:45; Admin Dose 0.125 MG; Start 03/09/17 at 13:00 Lorazepam (Ativan) 0.5 mg Q8H PRN PO ANXIETY; Start 03/09/17 at 12:30 Ondansetron HCl (Zofran Tab) 4 mg Q6H PRN PO NAUSEA AND/OR VOMITING; Start 03/09/17 at 12:30 Acetaminophen/ Hydrocodone Bitart ([place] (5/325)) 1 tab Q6H PRN PO PAIN LEVEL 6 -10 Last administered on 03/15/17 20:53; Admin Dose 1 TAB; Start 03/09/17 at 12:30 Bisacodyl (Dulcolax) 5 mg DAILY PRN PO CONSTIPATION; Start 03/09/17 at 12:30 Carvedilol (Coreg) 3.125 mg BID PO Last administered on 03/16/17 09:58; Admin Dose 3.125 MG; Start 03/09/17 at 21:30 Enoxaparin Sodium (Lovenox) 40 mg DAILY SC Last administered on 03/17/17 10: 53; Admin Dose 40 MG; Start 03/11/17 at 17:00 Lorazepam (Ativan) 0.25 mg Q8H PRN IV ANXIETY Last administered on 03/14/17 03:09; Admin Dose 0.25 MG; Start 03/14/17 at 03:00 Famotidine 20 mg 20 mg DAILY PO Last administered on 03/17/17 10:49; Admin Dose 20 MG; Start 03/15/17 at 09:00 Levofloxacin/ Dextrose (Levaquin 500mg/ D5W 100 ml (Pmx)) 100 ml @ 100 mls/hr Q24H IVPB Last administered on 03/16/17 16:04; Admin Dose 100 MLS/HR; Start 03/14/17 at 16:00 Vitamin A/Vitamin D (Vitamin A & D Oint) 1 applic BID TOP Last administered on 03/17/17 10:57; Admin Dose 1 APPLIC; Start 03/15/17 at 14:00 Midodrine (Proamatine) 2.5 mg TID@,,17 PO Last administered on 03/17/17 12:44; Admin Dose 2.5 MG; Start 03/17/17 at 09:00 Metoclopramide HCl 10 mg 10 mg Q6H PRN PO NAUSEA AND/OR VOMITING Last administered on 03/17/17 12:45; Admin Dose 10 MG; Start 03/17/17 at 10:00 Sodium Chloride (NS) 500 ml @ 75 mls/hr Q6H40M ONCE IV ; Start 03/17/17 at 14: 00; Stop 03/17/17 at 20:39 GARY CROSS MD Mar 17, 2017 17:38
[2017-03-17] MEDS ORDERED: TOLVAPTAN 15 MG TABLET PO ONE (18:00)
--- NOTE | 2017-03-17 18:01 | QN ---
Documentation Comment Consult done; dictated, please see full consult note Hyponatremia likely SIADH, urine osm and urine sodium pending - Fluid restiction - [facility] 15 and f/u serial Na SHIN BARNEY MD Mar 17, 2017 18:01
--- NOTE | 2017-03-17 18:01 | CONS ---
DATE OF ADMISSION: 03/08/2017 DATE OF CONSULTATION: 03/17/2017 TYPE OF CONSULTATION: 03/17/2017. REASON FOR CONSULTATION: Hyponatremia. HISTORY OF PRESENT ILLNESS: This is an 81-year-old woman with a past medical history of metastatic breast cancer with bone and pelvic mets, with a history of malignant effusion, status post PleurX ca theter, dysphagia status post recent esophageal dilatation, history of cardiomyopathy with a decreas ed left EF, AICD, status post recent generator change, who was [facility] to shortness of breath. Apparently, the patient was sent to a long-term without oxygen req uirements and came back. On admission, her temperature was 98.2, blood pressure 117/65, pulse 127, saturating 94% on 6 liters. The patient's lab revealed a white count of 12, hemoglobin 10, platelet count 403, sodium 135, potassium 4.9, creatinine 0.9, BUN of 22. ABG showed pH of 7.38, pO2 of 77 and pCO2 of 37. The patient had a chest x-ray that showed improved appearance of the lungs, small b ilateral pleural effusions and patient had additionally underwent MRI revealing bibasilar consolidat ion, atelectasis, bilateral pleural effusions. The patient also had a CT of the head revealing no i ntracranial hemorrhage. The patient was transferred to [facility] for insurance reasons. Since admission, the patient has been seen by multiple consultants. Patient had dysphagia and was o n Reglan. The patient had a PEG tube placed. The patient had bilateral effusions and pulmonary has been on board, and PleurX catheter has been draining the effusions. Patient had swelling of the le ft upper extremity and PICC line was removed due to thrombus. The next day, the sodium dropped to 1 30s and it was thought that the hyponatremia was secondary to dehydration. The patient was continue d on gentle NS. Patient was also started on Lasix 20 mg b.i.d., which was started on 03/13. All I's and O's have be en documented. Patient's urine output had been 100, 300, 700, and 250. Patient has significant carissa unt of drainage through the PleurX catheter. The right catheter drained 500, 900, 350, and 50 and t he left 500, 900, 450 and 300. According to the son, the patient has been feeling weak, tired, and she has been drinking more water. Overall, net intake has been 840, 900, 1900 mL, 1925 mL, 1625 mL and 500 mL. Sodium was 130, 134 and is 128 today. PAST MEDICAL HISTORY: Significant for: 1. Breast cancer in 1998, status post surgery, chemoradiation, recurrent disease. 2. Hyperlipidemia. 3. AFib. 4. Permanent pacemaker. 5. Leukopenia. 6. Cardiomyopathy. 7. Anemia of chronic disease. ALLERGIES: NONE. PAST SURGICAL HISTORY: Significant for endoscopy. SOCIAL HISTORY: Does not smoke, drink. , has 3 adult supportive sons. REVIEW OF SYSTEMS: The patient has nausea, has some decreased appetite, vomiting. No chest p ain, is currently on 5 liters of oxygen, has bilateral PleurX catheters. Denies any abdominal pain. Denies any diarrhea. Denies any headache, any blurry vision. Denies any hematemesis, any melena. Denies any focal neurological deficits. PHYSICAL EXAMINATION: VITAL SIGNS: Blood pressure 99/54, heart rate is 126. The patient is afebrile, saturating 98% on 5 liters. GENERAL: Patient is awake, alert, oriented, does not appear to be in any acute distress on 5 liters of oxygen. NECK: Supple, no JVD. Oral mucosa moist. HEART: Irregularly irregular. LUNGS: Decreased breath sounds bilaterally. ABDOMEN: Soft, nontender, has a G-tube in place. EXTREMITIES: Have trace edema. NEUROLOGIC: Nonfocal. DIAGNOSTIC DATA: Sodium 128, potassium 4.6, chloride 95, bicarb is 25, BUN of 17, creatinine 0.77, calcium 8.1. Albumin 2.2. BNP of 6000. Calcium 8.1. Urine osmolarity, serum osmolarity pending. White count 13.0, hemoglobin 18.8, platelet count 267. UA shows positive nitrite, 65 WBCs, 1+ gluc ose, 1+ protein. ASSESSMENT AND PLAN: This is an 81-year-old woman presenting with: 1. Recurrent hyponatremia. The patient has been aggressively fluid resuscitated in the past with n o improvement in the sodium. Patient could have underlying SIADH due to a history of malignancy and also persistent nausea, vomiting and pain. 2. Urinary tract infection. Currently on Levaquin. Urine culture positive for Bronwyn albicans; h owever, was 10,000 to 20,000 colonies. Currently, the patient is on Levaquin. 3. Congestive heart failure, systolic and chronic EF 35% by echo this admit. 4. History of cardiomyopathy, decreased ejection fraction. 5. Status post AICD generator change. 6. Pleural effusion, recurrent, status post PleurX. 7. Metastatic breast carcinoma. 8. Hypoxia. 9. Sinus tachycardia. PLAN: At this period of time, we will follow the patient closely with you. Will check for urine an d serum osmolarity, TSH and cortisol. Will keep the patient on fluid restriction as long as the blo od pressure permits. We will also do strict I's and O's. We will talk to dietitian about tube feed ing. Will change the antibiotics and NS; however, spoke to pharmacist and Levaquin cannot be change d ____. The patient will benefit from salt tabs. We will follow the patient closely with you. Res t of the treatment will depend on the patient's hospitalization course. Dictated By: SHIN ROTH/TAURUS Conf#: [id number] DID#: [id number] CC: MAINE BRAY MD;*End*
[2017-03-17] MEDS: ATORVASTATIN 20 MG TAB PO SCH (21:26)
[2017-03-17] MEDS: LEVOFLOXACIN 500 MG TAB PO SCH (21:26)
[2017-03-18] VITALS (12 sets, daily range): BP systolic 93–104; BP diastolic 47–66; PULSE 118–125; RESP 16–22
[2017-03-18] MEDS: LEVOFLOXACIN 500 MG TAB PO SCH (05:36)
[2017-03-18] MEDS: ALBUTEROL/IPRATROPIUM (NEB) 3 ML AMP HHN SCH ×3 (07:43→21:05)
[2017-03-18] MEDS: FAMOTIDINE 20 MG TAB PO SCH (09:14)
[2017-03-18] MEDS: ENOXAPARIN 40 MG/0.4 ML SYG SC SCH (09:14)
[2017-03-18] MEDS: VITAMIN A & D 5 GM OINT PACKET TOP SCH ×2 (09:14→21:58)
[2017-03-18] MEDS: ASPIRIN (EC) 81 MG TAB PO SCH (09:14)
[2017-03-18 09:18] LABS: ALBUMIN 2.4 g/dl (3.3-4.9); CALCIUM 8.4 mg/dl (8.4-10.2); CREATININE 0.84 mg/dl (0.44-1.00); MAGNESIUM 1.8 mg/dl (1.7-2.5); PHOSPHORUS 2.4 mg/dl (2.5-4.9); POTASSIUM 4.5 mmol/L (3.5-5.1)
[2017-03-18 09:36] LABS: ABNORMAL IP MESSAGE 1; BASOPHILS % 0.2 % (0.0-2.0); EOSINOPHILS # 0.1 10^3/ul (0.0-0.5); HEMATOCRIT 28.6 % (37.0-47.0); HEMOGLOBIN 9.5 g/dl (12.0-16.0); LYMPHOCYTES # 0.1 10^3/ul (0.8-2.9); LYMPHOCYTES % 1.1 % (15.0-51.0); MEAN CORPUSCULAR HGB CONC 33.2 g/dl (32.0-37.0); MEAN CORPUSCULAR VOLUME 90.2 fl (82.0-101.0); MEAN PLATELET VOLUME 10.8 fl (7.4-10.4); MONOCYTE # 1.1 10^3/ul (0.3-0.9); MONOCYTES % 8.8 % (0.0-11.0); NEUTROPHIL # 10.9 10^3/ul (1.6-7.5); NEUTROPHILS % 86.9 % (39.0-77.0); PLATELET COUNT 272 10^3/UL (140-415); RED BLOOD COUNT 3.17 10^6/ul (4.20-5.40); RED CELL DISTRIBUTION WIDTH 15.9 % (11.5-14.5); WHITE BLOOD COUNT 12.5 10^3/ul (4.8-10.8)
--- NOTE | 2017-03-18 10:00 | CONS ---
Date/Time of Note Date/Time of Note DATE: 03/18/17 TIME: 09:58 Assessment/Plan Assessment/Plan Additional Assessment/Plan Assessment and recommendations; 1. Patient admitted with shortness of breath due to recurrent bilateral pleural effusion status post bilateral Pleurx catheter placement. Last chest x- ray is not showing any significant pleural effusions. Patient also has minimal pleural effusions and only few mL's were drained from each side yesterday. 2. Metastatic breast cancer. 3. History of cardiac arrhythmia. Continue current supportive care. Consider discharge. Prognosis is poor. Consultation Date/Type/Reason Admit Date/Time Mar 08, 2017 at 22:13 Initial Consult Date 03/14/17 Type of Consultation: Pulmonary Referring Provider: GARY CROSS MD 24 HR Interval Summary Free Text/Dictation Patient condition is stable. Denies any shortness of breath. Any chest pain. Bilateral Pleurx catheter drainage was performed last evening only a few mL's were drained from each site. General exam; elderly woman, awake and alert. Currently in no distress. Exam/Review of Systems Vital Signs Vitals Vital Signs Date Time Temp Pulse Resp B/P Pulse Ox O2 Delivery O2 Flow Rate FiO2 03/18/17 08:17 118 03/18/17 07:59 Nasal Cannula 5.0 03/18/17 07:45 20 96 03/18/17 07:22 98.1 96/57 03/14/17 20:22 40 Intake and Output 03/17/17 03/17/17 03/18/17 15:00 23:00 07:00 Intake Total 200 ml 390 ml Output Total 305 ml Balance -105 ml 390 ml Exam HEENT exam; supple neck, no JVD. No lymphadenopathy. Midline trachea. No thyromegaly. Patient is edentulous. Has bilateral intraocular lens implants. Chest exam; diminished but clear breath sounds. Bilateral Pleurx catheters are in place. S1-S2 audible, no murmurs. Abdomen exam; soft, scaphoid. Nontender. No organomegaly. Bowel sounds audible. Extremity exam; no peripheral edema. [employer] exam; no focal motor deficit. Results Result Diagram: 03/18/17 0907 03/18/17 0827 Results 24 hrs Laboratory Tests Test 03/17/17 11:06 03/17/17 13:08 03/17/17 19:03/18/17 02:13 Osmolality 273 L Urine Random Sodium < 13 L Sodium Level 131 L 127 L Test 03/18/17 08:27 03/18/17 09:07 Sodium Level 129 L Potassium Level 4.5 Chloride Level 94 L Carbon Dioxide Level 31 Anion Gap 9 Blood Urea Nitrogen 18 Creatinine 0.84 Glucose Level 166 Calcium Level 8.4 Phosphorus Level 2.4 L Magnesium Level 1.8 Albumin 2.4 L White Blood Count 12.5 H Red Blood Count 3.17 L Hemoglobin 9.5 L Hematocrit 28.6 L Mean Corpuscular Volume 90.2 Mean Corpuscular Hemoglobin 30.0 Mean Corpuscular Hemoglobin Concent 33.2 Red Cell Distribution Width 15.9 H Platelet Count 272 Mean Platelet Volume 10.8 H Neutrophils % 86.9 H Lymphocytes % 1.1 L Monocytes % 8.8 Eosinophils % 1.0 Basophils % 0.2 Nucleated Red Blood Cells % 0.0 Neutrophils # 10.9 H Lymphocytes # 0.1 L Monocytes # 1.1 H Eosinophils # 0.1 Basophils # 0.0 Nucleated Red Blood Cells # 0.0 Medications Medications Current Medications Ondansetron HCl/ Dextrose (Zofran Inj/D5W) 54 ml @ 108 mls/hr Q6H PRN IV NAUSEA AND/OR VOMITING Last administered on 03/12/17 12:57; Admin Dose 108 MLS /HR; Start 03/09/17 at 02:30 Aspirin (Halfprin) 81 mg DAILY PO Last administered on 03/18/17 09:14; Admin Dose 81 MG; Start 03/09/17 at 12:30 Atorvastatin Calcium (Lipitor) 20 mg HS PO Last administered on 03/17/17 21: 26; Admin Dose 20 MG; Start 03/09/17 at 21:00 Digoxin (Digoxin) 0.125 mg DAILY@13 PO Last administered on 03/17/17 12:45; Admin Dose 0.125 MG; Start 03/09/17 at 13:00 Lorazepam (Ativan) 0.5 mg Q8H PRN PO ANXIETY; Start 03/09/17 at 12:30 Ondansetron HCl (Zofran Tab) 4 mg Q6H PRN PO NAUSEA AND/OR VOMITING; Start 03/09/17 at 12:30 Acetaminophen/ Hydrocodone Bitart ([place] (5/325)) 1 tab Q6H PRN PO PAIN LEVEL 6 -10 Last administered on 03/15/17 20:53; Admin Dose 1 TAB; Start 03/09/17 at 12:30 Bisacodyl (Dulcolax) 5 mg DAILY PRN PO CONSTIPATION; Start 03/09/17 at 12:30 Carvedilol (Coreg) 3.125 mg BID PO Last administered on 03/16/17 09:58; Admin Dose 3.125 MG; Start 03/09/17 at 21:30 Enoxaparin Sodium (Lovenox) 40 mg DAILY SC Last administered on 03/18/17 09: 14; Admin Dose 40 MG; Start 03/11/17 at 17:00 Lorazepam (Ativan) 0.25 mg Q8H PRN IV ANXIETY Last administered on 03/14/17 03:09; Admin Dose 0.25 MG; Start 03/14/17 at 03:00 Famotidine (Pepcid) 20 mg DAILY PO Last administered on 03/18/17 09:14; Admin Dose 20 MG; Start 03/15/17 at 09:00 Vitamin A/Vitamin D (Vitamin A & D Oint) 1 applic BID TOP Last administered on 03/18/17 09:14; Admin Dose 1 APPLIC; Start 03/15/17 at 14:00 Midodrine (Proamatine) 2.5 mg TID@,,17 PO Last administered on 03/17/17 21:32; Admin Dose 2.5 MG; Start 03/17/17 at 09:00 Metoclopramide HCl (Reglan Liq) 10 mg Q6H PRN PO NAUSEA AND/OR VOMITING Last administered on 03/17/17 12:45; Admin Dose 10 MG; Start 03/17/17 at 10:00 Levofloxacin (Levaquin) 500 mg DAILY@06 PO Last administered on 03/18/17 05: 36; Admin Dose 500 MG; Start 03/17/17 at 19:00 DAGOBERTO CAO Mar 18, 2017 10:00
--- NOTE | 2017-03-18 11:23 | CONS ---
Date/Time of Note Date/Time of Note DATE: 03/18/17 TIME: 11:22 Assessment/Plan Assessment/Plan Chief Complaint/Hosp Course 1. Recurrent hyponatremia. The patient has been aggressively fluid resuscitated in the past with no improvement in the sodium. Patient could have underlying SIADH due to a history of malignancy and also persistent nausea, vomiting and pain. 2. Urinary tract infection. Currently on Levaquin. Urine culture positive for Bronwyn albicans; however, was 10,000 to 20,000 colonies. Currently, the patient is on Levaquin. 3. Congestive heart failure, systolic and chronic EF 35% by echo this admit. 4. History of cardiomyopathy, decreased ejection fraction. 5. Status post AICD generator change. 6. Pleural effusion, recurrent, status post PleurX. 7. Metastatic breast carcinoma. 8. Hypoxia. 9. Sinus tachycardia. Problems: Additional Assessment/Plan 1. continue a/b 2. Optimization of kidney function Consultation Date/Type/Reason Admit Date/Time Mar 08, 2017 at 22:13 Initial Consult Date 03/17/17 Type of Consultation: Nephtology Reason for Consultation Dr Boss Referring Provider: GARY CROSS MD 24 HR Interval Summary Constitutional: poor po, requiring O2 Exam/Review of Systems Vital Signs Vitals Vital Signs Date Time Temp Pulse Resp B/P Pulse Ox O2 Delivery O2 Flow Rate FiO2 03/18/17 08:17 118 03/18/17 07:59 Nasal Cannula 5.0 03/18/17 07:45 20 96 03/18/17 07:22 98.1 96/57 03/14/17 20:22 40 Intake and Output 03/17/17 03/17/17 03/18/17 15:00 23:00 07:00 Intake Total 200 ml 390 ml Output Total 305 ml Balance -105 ml 390 ml Exam pale Constitutional: alert, oriented Neck: supple Respiratory: diminished breath sounds, labored breathing Results Result Diagram: 03/18/17 0907 03/18/17 0827 Results 24 hrs Laboratory Tests Test 03/17/17 13:08 03/17/17 19:09 03/18/17 02:13 03/18/17 08:27 Urine Random Sodium < 13 L Sodium Level 131 L 127 L 129 L Potassium Level 4.5 Chloride Level 94 L Carbon Dioxide Level 31 Anion Gap 9 Blood Urea Nitrogen 18 Creatinine 0.84 Glucose Level 166 Calcium Level 8.4 Phosphorus Level 2.4 L Magnesium Level 1.8 Albumin 2.4 L Test 03/18/17 09:07 White Blood Count 12.5 H Red Blood Count 3.17 L Hemoglobin 9.5 L Hematocrit 28.6 L Mean Corpuscular Volume 90.2 Mean Corpuscular Hemoglobin 30.0 Mean Corpuscular Hemoglobin Concent 33.2 Red Cell Distribution Width 15.9 H Platelet Count 272 Mean Platelet Volume 10.8 H Neutrophils % 86.9 H Lymphocytes % 1.1 L Monocytes % 8.8 Eosinophils % 1.0 Basophils % 0.2 Nucleated Red Blood Cells % 0.0 Neutrophils # 10.9 H Lymphocytes # 0.1 L Monocytes # 1.1 H Eosinophils # 0.1 Basophils # 0.0 Nucleated Red Blood Cells # 0.0 Medications Medications Current Medications Ondansetron HCl/ Dextrose (Zofran Inj/D5W) 54 ml @ 108 mls/hr Q6H PRN IV NAUSEA AND/OR VOMITING Last administered on 03/12/17 12:57; Admin Dose 108 MLS /HR; Start 03/09/17 at 02:30 Aspirin (Halfprin) 81 mg DAILY PO Last administered on 03/18/17 09:14; Admin Dose 81 MG; Start 03/09/17 at 12:30 Atorvastatin Calcium (Lipitor) 20 mg HS PO Last administered on 03/17/17 21: 26; Admin Dose 20 MG; Start 03/09/17 at 21:00 Digoxin (Digoxin) 0.125 mg DAILY@13 PO Last administered on 03/17/17 12:45; Admin Dose 0.125 MG; Start 03/09/17 at 13:00 Lorazepam (Ativan) 0.5 mg Q8H PRN PO ANXIETY; Start 03/09/17 at 12:30 Ondansetron HCl (Zofran Tab) 4 mg Q6H PRN PO NAUSEA AND/OR VOMITING; Start 03/09/17 at 12:30 Acetaminophen/ Hydrocodone Bitart ([place] (5/325)) 1 tab Q6H PRN PO PAIN LEVEL 6 -10 Last administered on 03/15/17 20:53; Admin Dose 1 TAB; Start 03/09/17 at 12:30 Bisacodyl (Dulcolax) 5 mg DAILY PRN PO CONSTIPATION; Start 03/09/17 at 12:30 Carvedilol (Coreg) 3.125 mg BID PO Last administered on 03/16/17 09:58; Admin Dose 3.125 MG; Start 03/09/17 at 21:30 Enoxaparin Sodium (Lovenox) 40 mg DAILY SC Last administered on 03/18/17 09: 14; Admin Dose 40 MG; Start 03/11/17 at 17:00 Lorazepam (Ativan) 0.25 mg Q8H PRN IV ANXIETY Last administered on 03/14/17 03:09; Admin Dose 0.25 MG; Start 03/14/17 at 03:00 Famotidine (Pepcid) 20 mg DAILY PO Last administered on 03/18/17 09:14; Admin Dose 20 MG; Start 03/15/17 at 09:00 Vitamin A/Vitamin D (Vitamin A & D Oint) 1 applic BID TOP Last administered on 03/18/17 09:14; Admin Dose 1 APPLIC; Start 03/15/17 at 14:00 Midodrine (Proamatine) 2.5 mg TID@,,17 PO Last administered on 03/17/17 21:32; Admin Dose 2.5 MG; Start 03/17/17 at 09:00 Metoclopramide HCl (Reglan Liq) 10 mg Q6H PRN PO NAUSEA AND/OR VOMITING Last administered on 03/17/17 12:45; Admin Dose 10 MG; Start 03/17/17 at 10:00 Levofloxacin (Levaquin) 500 mg DAILY@06 PO Last administered on 03/18/17 05: 36; Admin Dose 500 MG; Start 03/17/17 at 19:00 GEORGE BISHOP Mar 18, 2017 11:23
[2017-03-18] MEDS: MIDODRINE 2.5 MG TAB PO SCH ×3 (11:24→17:46)
--- NOTE | 2017-03-18 11:32 | PN ---
Date/Time of Note Date/Time of Note DATE: 03/18/17 TIME: : Assessment/Plan VTE Prophylaxis VTE Prophylaxis Intervention: SCD's Lines/Catheters IV Catheter Type (from Nrs): Peripheral IV Urinary Cath still in place: No Assessment/Plan Chief Complaint/Hosp Course Assessment: Dysphagia- s/p EGD with dilation. 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 mets Anemia of chronic disease Plan: Tolerated TF overnight- will increase to 50 cc an hour Continue oral intake for pleasure Gastrostomy tube and site routine care Change Reglan to every 6 hours [id number] PPI therapy Subjective: Course reviewed with nursing staff Patient interviewed and examined All labs, imaging and other results reviewed The patient feeling better today, but still complaining of nausea intermittently We will increase feeding rate as there appears to be no contraindication We will also switch Reglan to schedule administration and switch to PPI PHYSICAL EXAMINATION: GENERAL: Well developed, well nourished, alert & oriented x 3, in no acute distress SKIN: No lesions, no stigmata chronic liver disease, no evidence of bleeding diathesis, PEG in place LYMPHATIC: No palpable lymphadenopathy. HEAD: Normocephalic, atraumatic, no tenderness. EYES: Pupils equal reactive to light and accommodation, full extraocular movements, sclera clear, non-icteric, no discharge. EARS/NOSE AND THROAT: Ears normal, nose normal, oropharynx normal, oral membranes well hydrated without lesions. NECK: Supple, no masses, thyroid normal, JVP within normal limits, carotids normal without bruits. CHEST: Inspection within normal limits. CARDIOVASCULAR: Heart: Regular rate and rhythm, no murmurs, gallops or rubs. Peripheral pulses present within normal limits, no cyanosis, clubbing or edemas. No pulsatile abdominal mass RESPIRATORY: Rales- bilat pleural catheters in place GASTROINTESTINAL AND LIVER: Abdomen: Gastrostomy tube in place. Soft, non tenderness, non-distended, no hernias, no masses, no organomegaly, no ascites, no guarding, no rebound tenderness, normoactive bowel sounds. Rectal: Deferred. EXTREMITIES: No cyanosis clubbing or edema, no evidence of DVT. Problems: Exam/Review of Systems Vital Signs Vitals Vital Signs Date Time Temp Pulse Resp B/P Pulse Ox O2 Delivery O2 Flow Rate FiO2 03/18/17 08:17 118 03/18/17 07:59 Nasal Cannula 5.0 03/18/17 07:45 20 96 03/18/17 07:22 98.1 96/57 03/14/17 20:22 40 Intake and Output 03/17/17 03/17/17 03/18/17 15:00 23:00 07:00 Intake Total 200 ml 390 ml Output Total 305 ml Balance -105 ml 390 ml Results Result Diagram: 03/18/17 0907 03/18/17 0827 Results 24 hrs Laboratory Tests Test 03/17/17 13:08 03/17/17 19:09 03/18/17 02:13 03/18/17 08:27 Urine Random Sodium < 13 L Sodium Level 131 L 127 L 129 L Potassium Level 4.5 Chloride Level 94 L Carbon Dioxide Level 31 Anion Gap 9 Blood Urea Nitrogen 18 Creatinine 0.84 Glucose Level 166 Calcium Level 8.4 Phosphorus Level 2.4 L Magnesium Level 1.8 Albumin 2.4 L Test 03/18/17 09:07 White Blood Count 12.5 H Red Blood Count 3.17 L Hemoglobin 9.5 L Hematocrit 28.6 L Mean Corpuscular Volume 90.2 Mean Corpuscular Hemoglobin 30.0 Mean Corpuscular Hemoglobin Concent 33.2 Red Cell Distribution Width 15.9 H Platelet Count 272 Mean Platelet Volume 10.8 H Neutrophils % 86.9 H Lymphocytes % 1.1 L Monocytes % 8.8 Eosinophils % 1.0 Basophils % 0.2 Nucleated Red Blood Cells % 0.0 Neutrophils # 10.9 H Lymphocytes # 0.1 L Monocytes # 1.1 H Eosinophils # 0.1 Basophils # 0.0 Nucleated Red Blood Cells # 0.0 Medications Medications Current Medications Ondansetron HCl/ Dextrose (Zofran Inj/D5W) 54 ml @ 108 mls/hr Q6H PRN IV NAUSEA AND/OR VOMITING Last administered on 03/12/17 12:57; Admin Dose 108 MLS /HR; Start 03/09/17 at 02:30 Aspirin (Halfprin) 81 mg DAILY PO Last administered on 03/18/17 09:14; Admin Dose 81 MG; Start 03/09/17 at 12:30 Atorvastatin Calcium (Lipitor) 20 mg HS PO Last administered on 03/17/17 21: 26; Admin Dose 20 MG; Start 03/09/17 at 21:00 Digoxin (Digoxin) 0.125 mg DAILY@13 PO Last administered on 03/17/17 12:45; Admin Dose 0.125 MG; Start 03/09/17 at 13:00 Lorazepam (Ativan) 0.5 mg Q8H PRN PO ANXIETY; Start 03/09/17 at 12:30 Ondansetron HCl (Zofran Tab) 4 mg Q6H PRN PO NAUSEA AND/OR VOMITING; Start 03/09/17 at 12:30 Acetaminophen/ Hydrocodone Bitart ([place] (5/325)) 1 tab Q6H PRN PO PAIN LEVEL 6 -10 Last administered on 03/15/17 20:53; Admin Dose 1 TAB; Start 03/09/17 at 12:30 Bisacodyl (Dulcolax) 5 mg DAILY PRN PO CONSTIPATION; Start 03/09/17 at 12:30 Carvedilol (Coreg) 3.125 mg BID PO Last administered on 03/16/17 09:58; Admin Dose 3.125 MG; Start 03/09/17 at 21:30 Enoxaparin Sodium (Lovenox) 40 mg DAILY SC Last administered on 03/18/17 09: 14; Admin Dose 40 MG; Start 03/11/17 at 17:00 Lorazepam (Ativan) 0.25 mg Q8H PRN IV ANXIETY Last administered on 03/14/17 03:09; Admin Dose 0.25 MG; Start 03/14/17 at 03:00 Famotidine (Pepcid) 20 mg DAILY PO Last administered on 03/18/17 09:14; Admin Dose 20 MG; Start 03/15/17 at 09:00 Vitamin A/Vitamin D (Vitamin A & D Oint) 1 applic BID TOP Last administered on 03/18/17 09:14; Admin Dose 1 APPLIC; Start 03/15/17 at 14:00 Midodrine (Proamatine) 2.5 mg TID@,,17 PO Last administered on 03/17/17 21:32; Admin Dose 2.5 MG; Start 03/17/17 at 09:00 Metoclopramide HCl (Reglan Liq) 10 mg Q6H PRN PO NAUSEA AND/OR VOMITING Last administered on 03/17/17 12:45; Admin Dose 10 MG; Start 03/17/17 at 10:00 Levofloxacin (Levaquin) 500 mg DAILY@06 PO Last administered on 03/18/17 05: 36; Admin Dose 500 MG; Start 03/17/17 at 19:00 OXANA PARIS MD Mar 18, 2017 11:32
[2017-03-18] MEDS: DIGOXIN 0.125 MG TAB PO SCH (12:50)
--- NOTE | 2017-03-18 15:45 | PN ---
Date/Time of Note Date/Time of Note DATE: 03/18/17 TIME: 15:40 Assessment/Plan VTE Prophylaxis VTE Prophylaxis Intervention: SCD's Lines/Catheters IV Catheter Type (from Nrs): Peripheral IV Urinary Cath still in place: No Assessment/Plan Chief Complaint/Hosp Course Patient is a 81-year-old female who recently was discharged 2 days prior to previous admission, however patient's long-term facility unit on oxygen and patient went into acute respiratory failure, and was sent to local ICU, transferred for insurance reasons. Assessment/Plan 1. Acute on chronic respiratory failure secondary pleural effusions - abx stopped, unlikely PNA source, patient doing well - Will continue on NC and wean as tolerated to maintain O2 >90% - Pulmonology consulted and recommendations appreciated. Continue on daily pleurx drainage at night - Bronchodilators 2. Elevated troponin -mild, cardiology aware -no chest pain 3. Dysphagia - GI reconsulted and recommendations appreciated - PEG tubed and tolerating tube feeds at 40cc/hr. Per GI will slowly increase to goal of 50. Pleasure feeds as well as tolerated -scheduled reglan 4. Bilateral pleural effusions, malignant per path report in january, breast CA. - Pulmonology on board. Will need daily pleurx drainage. - Continue on NC and wean as tolerating to keep saturations >90% 5. Tachycardia - Cardiology on board and consultation appreciated - On Digoxin and coreg 6. 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 Will fluid restrict for now. Hold off on salt tabs given patients CHF history - No acute symptoms - gentle IVF and monitor 7. Cardiomyopathy, congestive heart failure, acute on chronic ejection fraction 45% - Cardiology on board and recommendations appreciated. - Continue statin, asa, coreg as tolerated - ICD battery change done 8. 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 Merlos, oncology, outpatient. States patient is stage IV and not appropriate to continue chemotherapy at this time. Recommending Palliative care at this time. - Spoke with Family and they are not satisfied with plan and would like to continue to pursue treatment once patient discharged - Dr. Ray offered secondary opinion and agrees with Dr. Merlos in that patient is too debilitated to undergo chemotherapy 9. Anemia of chronic disease - currently stable - will continue monitoring 10. Disposition - Monitor sodium levels - SNF placement. Family would like [facility] Problems: Subjective 24 Hr Interval Summary Free Text/Dictation feeling slightly better, family at bedside, all questions answered Exam/Review of Systems Vital Signs Vitals Vital Signs Date Time Temp Pulse Resp B/P Pulse Ox O2 Delivery O2 Flow Rate FiO2 03/18/17 15:29 98.1 130 16 96/51 96 03/18/17 13:58 5.0 03/18/17 13:33 Nasal Cannula 03/14/17 20:22 40 Intake and Output 03/17/17 03/17/17 03/18/17 15:00 23:00 07:00 Intake Total 200 ml 390 ml Output Total 305 ml Balance -105 ml 390 ml Exam General: patient resting comfortably. No acute distress. Head: Normocephalic atraumatic Eyes: EOMI, pupils reactive to light Neck: Supple, nontender, midline Respiratory: crackles at bases bilaterally Cardiovascular: irregular rhythm, tachycardia, no obvious murmurs Gastrointestinal: non-tender to palpation, bowel sounds heard. Neurological: Moves all extremities spontaneously Results Result Diagram: 03/18/17 0907 03/18/17 0827 Results 24 hrs Laboratory Tests Test 03/17/17 19:09 03/18/17 02:13 03/18/17 08:27 03/18/17 09:07 Sodium Level 131 L 127 L 129 L Potassium Level 4.5 Chloride Level 94 L Carbon Dioxide Level 31 Anion Gap 9 Blood Urea Nitrogen 18 Creatinine 0.84 Glucose Level 166 Calcium Level 8.4 Phosphorus Level 2.4 L Magnesium Level 1.8 Albumin 2.4 L White Blood Count 12.5 H Red Blood Count 3.17 L Hemoglobin 9.5 L Hematocrit 28.6 L Mean Corpuscular Volume 90.2 Mean Corpuscular Hemoglobin 30.0 Mean Corpuscular Hemoglobin Concent 33.2 Red Cell Distribution Width 15.9 H Platelet Count 272 Mean Platelet Volume 10.8 H Neutrophils % 86.9 H Lymphocytes % 1.1 L Monocytes % 8.8 Eosinophils % 1.0 Basophils % 0.2 Nucleated Red Blood Cells % 0.0 Neutrophils # 10.9 H Lymphocytes # 0.1 L Monocytes # 1.1 H Eosinophils # 0.1 Basophils # 0.0 Nucleated Red Blood Cells # 0.0 Medications Medications Current Medications Ondansetron HCl/ Dextrose (Zofran Inj/D5W) 54 ml @ 108 mls/hr Q6H PRN IV NAUSEA AND/OR VOMITING Last administered on 03/12/17 12:57; Admin Dose 108 MLS /HR; Start 03/09/17 at 02:30 Aspirin (Halfprin) 81 mg DAILY PO Last administered on 03/18/17 09:14; Admin Dose 81 MG; Start 03/09/17 at 12:30 Atorvastatin Calcium (Lipitor) 20 mg HS PO Last administered on 03/17/17 21: 26; Admin Dose 20 MG; Start 03/09/17 at 21:00 Digoxin (Digoxin) 0.125 mg DAILY@13 PO Last administered on 03/18/17 12:50; Admin Dose 0.125 MG; Start 03/09/17 at 13:00 Lorazepam (Ativan) 0.5 mg Q8H PRN PO ANXIETY; Start 03/09/17 at 12:30 Ondansetron HCl (Zofran Tab) 4 mg Q6H PRN PO NAUSEA AND/OR VOMITING; Start 03/09/17 at 12:30 Acetaminophen/ Hydrocodone Bitart ([place] (5/325)) 1 tab Q6H PRN PO PAIN LEVEL 6 -10 Last administered on 03/15/17 20:53; Admin Dose 1 TAB; Start 03/09/17 at 12:30 Bisacodyl (Dulcolax) 5 mg DAILY PRN PO CONSTIPATION; Start 03/09/17 at 12:30 Carvedilol (Coreg) 3.125 mg BID PO Last administered on 03/16/17 09:58; Admin Dose 3.125 MG; Start 03/09/17 at 21:30 Enoxaparin Sodium (Lovenox) 40 mg DAILY SC Last administered on 03/18/17 09: 14; Admin Dose 40 MG; Start 03/11/17 at 17:00 Lorazepam (Ativan) 0.25 mg Q8H PRN IV ANXIETY Last administered on 03/14/17 03:09; Admin Dose 0.25 MG; Start 03/14/17 at 03:00 Vitamin A/Vitamin D (Vitamin A & D Oint) 1 applic BID TOP Last administered on 03/18/17 09:14; Admin Dose 1 APPLIC; Start 03/15/17 at 14:00 Midodrine (Proamatine) 2.5 mg TID@,,17 PO Last administered on 03/18/17 14:31; Admin Dose 2.5 MG; Start 03/17/17 at 09:00 Levofloxacin (Levaquin) 500 mg DAILY@06 PO Last administered on 03/18/17 05: 36; Admin Dose 500 MG; Start 03/17/17 at 19:00 Metoclopramide HCl (Reglan Liq) 10 mg Q6H GTB ; Start 03/18/17 at 16:00 Pantoprazole (Protonix Tab) 40 mg DAILY@06 PO ; Start 03/19/17 at 06:00 DIMA COVARRUBIAS Mar 18, 2017 15:45
[2017-03-18] MEDS: METOCLOPRAMIDE (1 MG/ML) 10 ML CUP GTB SCH ×2 (17:46→21:58)
--- NOTE | 2017-03-18 18:08 | CONS ---
Date/Time of Note Date/Time of Note DATE: 03/18/17 TIME: 18:07 Assessment/Plan Assessment/Plan Chief Complaint/Hosp Course IMPRESSION: 1. Congestive heart failure exacerbation-systolic acute on chronic EF 35%by echo this admit 2. History of cardiomyopathy, decreased left ventricular ejection fraction. 35 % by echo this admit 3. Status post recent automatic implantable cardioverter-defibrillator generator change. 4. Pleural effusions, recurrent, status post PleurX catheter. 5. Metastatic breast carcinoma. 6. Hypoxia, improved. 7. Tachycardia consistent with sinus tachycardia. REcc: -Tele -continue coreg as tolerated -Continue digoxin -Wean off midodrine which is pure afterload in setting of systolic failure -Hold lasix diuresis and give IVF bolus and follow hr closely which patient was not able to get due to no IV access Problems: Consultation Date/Type/Reason Admit Date/Time Mar 08, 2017 at 22:13 Initial Consult Date 03/09/2017 Type of Consultation: cardiology Reason for Consultation cardiomyopathy Referring Provider: GARY CROSS MD Exam/Review of Systems Vital Signs Vitals Vital Signs Date Time Temp Pulse Resp B/P Pulse Ox O2 Delivery O2 Flow Rate FiO2 03/18/17 16:22 124 03/18/17 15:29 98.1 16 96/51 96 03/18/17 13:58 5.0 03/18/17 13:33 Nasal Cannula 03/14/17 20:22 40 Intake and Output 03/17/17 03/17/17 03/18/17 15:00 23:00 07:00 Intake Total 200 ml 390 ml Output Total 305 ml Balance -105 ml 390 ml Results Result Diagram: 03/18/17 0907 03/18/17 0827 Results 24 hrs Laboratory Tests Test 03/17/17 19:09 03/18/17 02:13 03/18/17 08:27 03/18/17 09:07 Sodium Level 131 L 127 L 129 L Potassium Level 4.5 Chloride Level 94 L Carbon Dioxide Level 31 Anion Gap 9 Blood Urea Nitrogen 18 Creatinine 0.84 Glucose Level 166 Calcium Level 8.4 Phosphorus Level 2.4 L Magnesium Level 1.8 Albumin 2.4 L White Blood Count 12.5 H Red Blood Count 3.17 L Hemoglobin 9.5 L Hematocrit 28.6 L Mean Corpuscular Volume 90.2 Mean Corpuscular Hemoglobin 30.0 Mean Corpuscular Hemoglobin Concent 33.2 Red Cell Distribution Width 15.9 H Platelet Count 272 Mean Platelet Volume 10.8 H Neutrophils % 86.9 H Lymphocytes % 1.1 L Monocytes % 8.8 Eosinophils % 1.0 Basophils % 0.2 Nucleated Red Blood Cells % 0.0 Neutrophils # 10.9 H Lymphocytes # 0.1 L Monocytes # 1.1 H Eosinophils # 0.1 Basophils # 0.0 Nucleated Red Blood Cells # 0.0 Medications Medications Current Medications Ondansetron HCl/ Dextrose (Zofran Inj/D5W) 54 ml @ 108 mls/hr Q6H PRN IV NAUSEA AND/OR VOMITING Last administered on 03/12/17 12:57; Admin Dose 108 MLS /HR; Start 03/09/17 at 02:30 Aspirin (Halfprin) 81 mg DAILY PO Last administered on 03/18/17 09:14; Admin Dose 81 MG; Start 03/09/17 at 12:30 Atorvastatin Calcium (Lipitor) 20 mg HS PO Last administered on 03/17/17 21: 26; Admin Dose 20 MG; Start 03/09/17 at 21:00 Digoxin (Digoxin) 0.125 mg DAILY@13 PO Last administered on 03/18/17 12:50; Admin Dose 0.125 MG; Start 03/09/17 at 13:00 Lorazepam (Ativan) 0.5 mg Q8H PRN PO ANXIETY; Start 03/09/17 at 12:30 Ondansetron HCl (Zofran Tab) 4 mg Q6H PRN PO NAUSEA AND/OR VOMITING; Start 03/09/17 at 12:30 Acetaminophen/ Hydrocodone Bitart ([place] (5/325)) 1 tab Q6H PRN PO PAIN LEVEL 6 -10 Last administered on 03/15/17 20:53; Admin Dose 1 TAB; Start 03/09/17 at 12:30 Bisacodyl (Dulcolax) 5 mg DAILY PRN PO CONSTIPATION; Start 03/09/17 at 12:30 Carvedilol (Coreg) 3.125 mg BID PO Last administered on 03/16/17 09:58; Admin Dose 3.125 MG; Start 03/09/17 at 21:30 Enoxaparin Sodium (Lovenox) 40 mg DAILY SC Last administered on 03/18/17 09: 14; Admin Dose 40 MG; Start 03/11/17 at 17:00 Lorazepam (Ativan) 0.25 mg Q8H PRN IV ANXIETY Last administered on 03/14/17 03:09; Admin Dose 0.25 MG; Start 03/14/17 at 03:00 Vitamin A/Vitamin D (Vitamin A & D Oint) 1 applic BID TOP Last administered on 03/18/17 09:14; Admin Dose 1 APPLIC; Start 03/15/17 at 14:00 Midodrine (Proamatine) 2.5 mg TID@,,17 PO Last administered on 03/18/17 17:46; Admin Dose 2.5 MG; Start 03/17/17 at 09:00 Levofloxacin (Levaquin) 500 mg DAILY@06 PO Last administered on 03/18/17 05: 36; Admin Dose 500 MG; Start 03/17/17 at 19:00 Metoclopramide HCl (Reglan Liq) 10 mg Q6H GTB Last administered on 03/18/17 17:46; Admin Dose 10 MG; Start 03/18/17 at 16:00 Pantoprazole (Protonix Tab) 40 mg DAILY@06 PO ; Start 03/19/17 at 06:00 ROXIE VELARDE 18, 2017 18:08
[2017-03-18] MEDS: ATORVASTATIN 20 MG TAB PO SCH (21:59)
[2017-03-19] VITALS (11 sets, daily range): BP systolic 87–100; BP diastolic 48–57; PULSE 121–130; RESP 16–20
[2017-03-19] MEDS: PANTOPRAZOLE (EC) 40 MG TAB PO SCH (05:39)
[2017-03-19] MEDS: METOCLOPRAMIDE (1 MG/ML) 10 ML CUP GTB SCH ×4 (05:39→23:25)
[2017-03-19] MEDS: LEVOFLOXACIN 500 MG TAB PO SCH (05:39)
[2017-03-19] MEDS: ALBUTEROL/IPRATROPIUM (NEB) 3 ML AMP HHN SCH ×3 (07:53→19:49)
[2017-03-19 08:13] LABS: ABNORMAL IP MESSAGE 1; BASOPHILS % 0.2 % (0.0-2.0); EOSINOPHILS # 0.1 10^3/ul (0.0-0.5); EOSINOPHILS % 1.2 % (0.0-7.0); HEMATOCRIT 27.4 % (37.0-47.0); LYMPHOCYTES # 0.1 10^3/ul (0.8-2.9); MEAN CORPUSCULAR HGB CONC 32.8 g/dl (32.0-37.0); MEAN CORPUSCULAR VOLUME 91.3 fl (82.0-101.0); MEAN PLATELET VOLUME 10.9 fl (7.4-10.4); MONOCYTE # 0.9 10^3/ul (0.3-0.9); MONOCYTES % 7.8 % (0.0-11.0); NEUTROPHIL # 10.3 10^3/ul (1.6-7.5); NEUTROPHILS % 86.8 % (39.0-77.0); PLATELET COUNT 254 10^3/UL (140-415); WHITE BLOOD COUNT 11.8 10^3/ul (4.8-10.8)
[2017-03-19 08:21] LABS: POSITIVE DIFF @See below
[2017-03-19] MEDS: ASPIRIN (EC) 81 MG TAB PO SCH (08:23)
[2017-03-19] MEDS: VITAMIN A & D 5 GM OINT PACKET TOP SCH ×2 (08:23→23:25)
[2017-03-19] MEDS: ENOXAPARIN 40 MG/0.4 ML SYG SC SCH (08:24)
[2017-03-19 08:36] LABS: ALBUMIN 2.1 g/dl (3.3-4.9); CALCIUM 8.2 mg/dl (8.4-10.2); CREATININE 0.85 mg/dl (0.44-1.00); MAGNESIUM 1.7 mg/dl (1.7-2.5); PHOSPHORUS 2.4 mg/dl (2.5-4.9); POTASSIUM 4.8 mmol/L (3.5-5.1)
[2017-03-19] MEDS: MIDODRINE 2.5 MG TAB PO SCH ×3 (09:00→16:53)
--- NOTE | 2017-03-19 09:57 | PN ---
Date/Time of Note Date/Time of Note DATE: 03/19/17 TIME: 09:56 Assessment/Plan VTE Prophylaxis VTE Prophylaxis Intervention: SCD's Lines/Catheters [facility] Peripheral IV Urinary Cath still in place: No Assessment/Plan Chief Complaint/Hosp Course Assessment: Dysphagia- s/p EGD with dilation. PEG 03/15/17 Extrinsic compression midesophagus Post uneventful PEG Placement of [place] 20 GT Persistent nausea Acute on chronic respiratory failure Elevated troponin Bilateral pleural effusions, likely malignant Tachycardia Hyponatremia- stable Cardiomyopathy H/o Metastatic breast cancer with bone and pelvic mets Anemia of chronic disease Plan: Tolerated TF Continue oral intake for pleasure Gastrostomy tube and site routine care Continue Reglan every 6 hours [id number] PPI therapy Subjective: Course reviewed with nursing staff Patient interviewed and examined All labs, imaging and other results reviewed The patient feeling better today Tolerating feedings without difficulty We will continue present regimen PHYSICAL EXAMINATION: GENERAL: Well developed, well nourished, alert & oriented x 3, in no acute distress SKIN: No lesions, no stigmata chronic liver disease, no evidence of bleeding diathesis, PEG in place LYMPHATIC: No palpable lymphadenopathy. HEAD: Normocephalic, atraumatic, no tenderness. EYES: Pupils equal reactive to light and accommodation, full extraocular movements, sclera clear, non-icteric, no discharge. EARS/NOSE AND THROAT: Ears normal, nose normal, oropharynx normal, oral membranes well hydrated without lesions. NECK: Supple, no masses, thyroid normal, JVP within normal limits, carotids normal without bruits. CHEST: Inspection within normal limits. CARDIOVASCULAR: Heart: Regular rate and rhythm, no murmurs, gallops or rubs. Peripheral pulses present within normal limits, no cyanosis, clubbing or edemas. No pulsatile abdominal mass RESPIRATORY: Rales- bilat pleural catheters in place GASTROINTESTINAL AND LIVER: Abdomen: Gastrostomy tube in place. Soft, non tenderness, non-distended, no hernias, no masses, no organomegaly, no ascites, no guarding, no rebound tenderness, normoactive bowel sounds. Rectal: Deferred. EXTREMITIES: No cyanosis clubbing or edema, no evidence of DVT. Problems: Exam/Review of Systems Vital Signs Vitals Vital Signs Date Time Temp Pulse Resp B/P Pulse Ox O2 Delivery O2 Flow Rate FiO2 03/19/17 08:11 97.7 129 18 91/48 94 03/19/17 07:57 Nasal Cannula 5.0 Intake and Output 03/18/17 03/18/17 03/19/17 15:00 23:00 07:00 Intake Total 740 ml Balance 740 ml Results Result Diagram: 03/19/17 0741 03/19/17 0741 Results 24 hrs Laboratory Tests Test 03/18/17 20:00 03/19/17 07:41 Urine Osmolality 593 White Blood Count 11.8 H Red Blood Count 3.00 L Hemoglobin 9.0 L Hematocrit 27.4 L Mean Corpuscular Volume 91.3 Mean Corpuscular Hemoglobin 30.0 Mean Corpuscular Hemoglobin Concent 32.8 Red Cell Distribution Width 16.0 H Platelet Count 254 Mean Platelet Volume 10.9 H Neutrophils % 86.8 H Lymphocytes % 1.0 L Monocytes % 7.8 Eosinophils % 1.2 Basophils % 0.2 Nucleated Red Blood Cells % 0.0 Neutrophils # 10.3 H Lymphocytes # 0.1 L Monocytes # 0.9 Eosinophils # 0.1 Basophils # 0.0 Nucleated Red Blood Cells # 0.0 Sodium Level 129 L Potassium Level 4.8 Chloride Level 94 L Carbon Dioxide Level 30 Anion Gap 10 Blood Urea Nitrogen 16 Creatinine 0.85 Glucose Level 169 Calcium Level 8.2 L Phosphorus Level 2.4 L Magnesium Level 1.7 Albumin 2.1 L Medications Medications Current Medications Ondansetron HCl/ Dextrose (Zofran Inj/D5W) 54 ml @ 108 mls/hr Q6H PRN IV NAUSEA AND/OR VOMITING Last administered on 03/12/17 12:57; Admin Dose 108 MLS /HR; Start 03/09/17 at 02:30 Aspirin (Halfprin) 81 mg DAILY PO Last administered on 03/19/17 08:23; Admin Dose 81 MG; Start 03/09/17 at 12:30 Atorvastatin Calcium (Lipitor) 20 mg HS PO Last administered on 03/18/17 21: 59; Admin Dose 20 MG; Start 03/09/17 at 21:00 Digoxin (Digoxin) 0.125 mg DAILY@13 PO Last administered on 03/18/17 12:50; Admin Dose 0.125 MG; Start 03/09/17 at 13:00 Lorazepam (Ativan) 0.5 mg Q8H PRN PO ANXIETY; Start 03/09/17 at 12:30 Ondansetron HCl (Zofran Tab) 4 mg Q6H PRN PO NAUSEA AND/OR VOMITING; Start 03/09/17 at 12:30 Acetaminophen/ Hydrocodone Bitart ([place] (5/325)) 1 tab Q6H PRN PO PAIN LEVEL 6 -10 Last administered on 03/15/17 20:53; Admin Dose 1 TAB; Start 03/09/17 at 12:30 Bisacodyl (Dulcolax) 5 mg DAILY PRN PO CONSTIPATION; Start 03/09/17 at 12:30 Carvedilol (Coreg) 3.125 mg BID PO Last administered on 03/16/17 09:58; Admin Dose 3.125 MG; Start 03/09/17 at 21:30 Enoxaparin Sodium (Lovenox) 40 mg DAILY SC Last administered on 03/19/17 08: 24; Admin Dose 40 MG; Start 03/11/17 at 17:00 Lorazepam (Ativan) 0.25 mg Q8H PRN IV ANXIETY Last administered on 03/14/17 03:09; Admin Dose 0.25 MG; Start 03/14/17 at 03:00 Vitamin A/Vitamin D (Vitamin A & D Oint) 1 applic BID TOP Last administered on 03/19/17 08:23; Admin Dose 1 APPLIC; Start 03/15/17 at 14:00 Midodrine (Proamatine) 2.5 mg TID@,,17 PO Last administered on 03/18/17 17:46; Admin Dose 2.5 MG; Start 03/17/17 at 09:00 Levofloxacin (Levaquin) 500 mg DAILY@06 PO Last administered on 03/19/17 05: 39; Admin Dose 500 MG; Start 03/17/17 at 19:00 Metoclopramide HCl (Reglan Liq) 10 mg Q6H GTB Last administered on 03/19/17 05:39; Admin Dose 10 MG; Start 03/18/17 at 16:00 Pantoprazole (Protonix Tab) 40 mg DAILY@06 PO Last administered on 03/19/17 05:39; Admin Dose 40 MG; Start 03/19/17 at 06:00 OXANA PARIS MD Mar 19, 2017 09:57
--- NOTE | 2017-03-19 10:27 | CONS ---
Date/Time of Note Date/Time of Note DATE: 03/19/17 TIME: 10:26 Assessment/Plan Assessment/Plan Chief Complaint/Hosp Course 1. Recurrent hyponatremia. The patient has been aggressively fluid resuscitated in the past with no improvement in the sodium. Patient could have underlying SIADH due to a history of malignancy and also persistent nausea, vomiting and pain. 2. Urinary tract infection. 3. Congestive heart failure, systolic and chronic EF 35% by echo this admit. 4. History of cardiomyopathy, decreased ejection fraction. 5. Status post AICD generator change. 6. Pleural effusion, recurrent, status post PleurX. 7. Metastatic breast carcinoma. 8. Hypoxia. 9. Sinus tachycardia. Problems: Additional Assessment/Plan 1. Urinalysis Consultation Date/Type/Reason Admit Date/Time Mar 08, 2017 at 22:13 Initial Consult Date 03/17/17 Type of Consultation: nephrology Reason for Consultation Dr Boss Referring Provider: GARY CROSS MD Exam/Review of Systems Vital Signs Vitals Vital Signs Date Time Temp Pulse Resp B/P Pulse Ox O2 Delivery O2 Flow Rate FiO2 03/19/17 08:11 97.7 129 18 91/48 94 03/19/17 07:57 Nasal Cannula 5.0 Intake and Output 03/18/17 03/18/17 03/19/17 15:00 23:00 07:00 Intake Total 740 ml Balance 740 ml Exam Constitutional: alert, oriented Respiratory: diminished breath sounds Cardiovascular: regular rate and rhythm Gastrointestinal: soft Results Result Diagram: 03/19/17 0741 03/19/17 0741 Results 24 hrs Laboratory Tests Test 03/18/17 20:00 03/19/17 07:41 Urine Osmolality 593 White Blood Count 11.8 H Red Blood Count 3.00 L Hemoglobin 9.0 L Hematocrit 27.4 L Mean Corpuscular Volume 91.3 Mean Corpuscular Hemoglobin 30.0 Mean Corpuscular Hemoglobin Concent 32.8 Red Cell Distribution Width 16.0 H Platelet Count 254 Mean Platelet Volume 10.9 H Neutrophils % 86.8 H Lymphocytes % 1.0 L Monocytes % 7.8 Eosinophils % 1.2 Basophils % 0.2 Nucleated Red Blood Cells % 0.0 Neutrophils # 10.3 H Lymphocytes # 0.1 L Monocytes # 0.9 Eosinophils # 0.1 Basophils # 0.0 Nucleated Red Blood Cells # 0.0 Sodium Level 129 L Potassium Level 4.8 Chloride Level 94 L Carbon Dioxide Level 30 Anion Gap 10 Blood Urea Nitrogen 16 Creatinine 0.85 Glucose Level 169 Calcium Level 8.2 L Phosphorus Level 2.4 L Magnesium Level 1.7 Albumin 2.1 L Medications Medications Current Medications Ondansetron HCl/ Dextrose (Zofran Inj/D5W) 54 ml @ 108 mls/hr Q6H PRN IV NAUSEA AND/OR VOMITING Last administered on 03/12/17 12:57; Admin Dose 108 MLS /HR; Start 03/09/17 at 02:30 Aspirin (Halfprin) 81 mg DAILY PO Last administered on 03/19/17 08:23; Admin Dose 81 MG; Start 03/09/17 at 12:30 Atorvastatin Calcium (Lipitor) 20 mg HS PO Last administered on 03/18/17 21: 59; Admin Dose 20 MG; Start 03/09/17 at 21:00 Digoxin (Digoxin) 0.125 mg DAILY@13 PO Last administered on 03/18/17 12:50; Admin Dose 0.125 MG; Start 03/09/17 at 13:00 Lorazepam (Ativan) 0.5 mg Q8H PRN PO ANXIETY; Start 03/09/17 at 12:30 Ondansetron HCl (Zofran Tab) 4 mg Q6H PRN PO NAUSEA AND/OR VOMITING; Start 03/09/17 at 12:30 Acetaminophen/ Hydrocodone Bitart ([place] (5/325)) 1 tab Q6H PRN PO PAIN LEVEL 6 -10 Last administered on 03/15/17 20:53; Admin Dose 1 TAB; Start 03/09/17 at 12:30 Bisacodyl (Dulcolax) 5 mg DAILY PRN PO CONSTIPATION; Start 03/09/17 at 12:30 Carvedilol (Coreg) 3.125 mg BID PO Last administered on 03/19/17 09:55; Admin Dose 3.125 MG; Start 03/09/17 at 21:30 Enoxaparin Sodium (Lovenox) 40 mg DAILY SC Last administered on 03/19/17 08: 24; Admin Dose 40 MG; Start 03/11/17 at 17:00 Lorazepam (Ativan) 0.25 mg Q8H PRN IV ANXIETY Last administered on 03/14/17 03:09; Admin Dose 0.25 MG; Start 03/14/17 at 03:00 Vitamin A/Vitamin D (Vitamin A & D Oint) 1 applic BID TOP Last administered on 03/19/17 08:23; Admin Dose 1 APPLIC; Start 03/15/17 at 14:00 Midodrine (Proamatine) 2.5 mg TID@,,17 PO Last administered on 03/18/17 17:46; Admin Dose 2.5 MG; Start 03/17/17 at 09:00 Levofloxacin (Levaquin) 500 mg DAILY@06 PO Last administered on 03/19/17 05: 39; Admin Dose 500 MG; Start 03/17/17 at 19:00 Metoclopramide HCl (Reglan Liq) 10 mg Q6H GTB Last administered on 03/19/17 09:53; Admin Dose 10 MG; Start 03/18/17 at 16:00 Pantoprazole (Protonix Tab) 40 mg DAILY@06 PO Last administered on 03/19/17 05:39; Admin Dose 40 MG; Start 03/19/17 at 06:00 GEORGE BISHOP Mar 19, 2017 10:26
[2017-03-19] MEDS ORDERED: SODIUM PHOSPHATE 20 MEQ in SOD CHLORIDE 0.9% 250 ML IVPB ONE (11:30)
--- NOTE | 2017-03-19 12:32 | PN ---
Date/Time of Note Date/Time of Note DATE: 03/19/17 TIME: 12:29 Assessment/Plan VTE Prophylaxis VTE Prophylaxis Intervention: SCD's Lines/Catheters IV Catheter Type (from [facility]): [place] [facility] Urinary Cath still in place: No Assessment/Plan Chief Complaint/Hosp Course Patient is a 81-year-old female who recently was discharged 2 days prior to previous admission, however patient's nursing home facility unit on oxygen and patient went into acute respiratory failure, and was sent to local ICU, transferred for insurance reasons. Assessment/Plan 1. Acute on chronic respiratory failure secondary pleural effusions - abx stopped, unlikely PNA source, patient doing well - Will continue on NC and wean as tolerated to maintain O2 >90% - Pulmonology consulted and recommendations appreciated. Continue on daily pleurx drainage at night - Bronchodilators 2. Elevated troponin -mild, cardiology aware, no intervention -no chest pain 3. Dysphagia - GI reconsulted and recommendations appreciated - PEG tubed and tolerating tube feeds at 40cc/hr. Per GI will slowly increase to goal of 50. Pleasure feeds as well as tolerated -scheduled reglan 4. Bilateral pleural effusions, malignant per path report in january, breast CA. - Pulmonology on board. Will need daily to q 3day pleurx drainage. - Continue on NC and wean as tolerating to keep saturations >90% 5. Tachycardia - Cardiology on board and consultation appreciated - On Digoxin and coreg 6. 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 Will fluid restrict for now. Hold off on salt tabs given patients CHF history - No acute symptoms - gentle IVF and monitor 7. Cardiomyopathy, congestive heart failure, acute on chronic ejection fraction 45% - Cardiology on board and recommendations appreciated. - Continue statin, asa, coreg as tolerated - ICD battery change done 8. 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 Merlos, oncology, outpatient. States patient is stage IV and not appropriate to continue chemotherapy at this time. Recommending Palliative care at this time. - Spoke with Family and they are not satisfied with plan and would like to continue to pursue treatment once patient discharged - Dr. Ray offered secondary opinion and agrees with Dr. Merlos in that patient is too debilitated to undergo chemotherapy 9. Anemia of chronic disease - currently stable - will continue monitoring 10. Disposition - Monitor sodium levels - SNF placement. Family would like [facility] Problems: Exam/Review of Systems Vital Signs Vitals Vital Signs Date Time Temp Pulse Resp B/P Pulse Ox O2 Delivery O2 Flow Rate FiO2 03/19/17 12:10 98.3 125 19 87/52 95 03/19/17 07:57 Nasal Cannula 5.0 Intake and Output 03/18/17 03/18/17 03/19/17 14:59 22:59 06:59 Intake Total 740 ml Balance 740 ml Exam General: patient resting comfortably. No acute distress. Head: Normocephalic atraumatic Eyes: EOMI, pupils reactive to light Neck: Supple, nontender, midline Respiratory: crackles at bases bilaterally Cardiovascular: irregular rhythm, tachycardia, no obvious murmurs Gastrointestinal: non-tender to palpation, bowel sounds heard. Neurological: Moves all extremities spontaneously Results Result Diagram: 03/19/17 0741 03/19/17 0741 Results 24 hrs Laboratory Tests Test 03/18/17 20:00 03/19/17 07:41 Urine Osmolality 593 White Blood Count 11.8 H Red Blood Count 3.00 L Hemoglobin 9.0 L Hematocrit 27.4 L Mean Corpuscular Volume 91.3 Mean Corpuscular Hemoglobin 30.0 Mean Corpuscular Hemoglobin Concent 32.8 Red Cell Distribution Width 16.0 H Platelet Count 254 Mean Platelet Volume 10.9 H Neutrophils % 86.8 H Lymphocytes % 1.0 L Monocytes % 7.8 Eosinophils % 1.2 Basophils % 0.2 Nucleated Red Blood Cells % 0.0 Neutrophils # 10.3 H Lymphocytes # 0.1 L Monocytes # 0.9 Eosinophils # 0.1 Basophils # 0.0 Nucleated Red Blood Cells # 0.0 Sodium Level 129 L Potassium Level 4.8 Chloride Level 94 L Carbon Dioxide Level 30 Anion Gap 10 Blood Urea Nitrogen 16 Creatinine 0.85 Glucose Level 169 Calcium Level 8.2 L Phosphorus Level 2.4 L Magnesium Level 1.7 Albumin 2.1 L Medications Medications Current Medications Ondansetron HCl/ Dextrose (Zofran Inj/D5W) 54 ml @ 108 mls/hr Q6H PRN IV NAUSEA AND/OR VOMITING Last administered on 03/12/17t 12:57; Admin Dose 108 MLS /HR; Start 03/09/17 at 02:30 Aspirin (Halfprin) 81 mg DAILY PO Last administered on 03/19/17 08:23; Admin Dose 81 MG; Start 03/09/17 at 12:30 Atorvastatin Calcium (Lipitor) 20 mg HS PO Last administered on 03/18/17 21: 59; Admin Dose 20 MG; Start 03/09/17 at 21:00 Digoxin (Digoxin) 0.125 mg DAILY@13 PO Last administered on 03/18/17 12:50; Admin Dose 0.125 MG; Start 03/09/17 at 13:00 Lorazepam (Ativan) 0.5 mg Q8H PRN PO ANXIETY; Start 03/09/17 at 12:30 Ondansetron HCl (Zofran Tab) 4 mg Q6H PRN PO NAUSEA AND/OR VOMITING; Start 03/09/17 at 12:30 Acetaminophen/ Hydrocodone Bitart ([place] (5/325)) 1 tab Q6H PRN PO PAIN LEVEL 6 -10 Last administered on 03/15/17 20:53; Admin Dose 1 TAB; Start 03/09/17 at 12:30 Bisacodyl (Dulcolax) 5 mg DAILY PRN PO CONSTIPATION; Start 03/09/17 at 12:30 Carvedilol (Coreg) 3.125 mg BID PO Last administered on 03/19/17 09:55; Admin Dose 3.125 MG; Start 03/09/17 at 21:30 Enoxaparin Sodium (Lovenox) 40 mg DAILY SC Last administered on 03/19/17 08: 24; Admin Dose 40 MG; Start 03/11/17 at 17:00 Lorazepam (Ativan) 0.25 mg Q8H PRN IV ANXIETY Last administered on 03/14/17 03:09; Admin Dose 0.25 MG; Start 03/14/17 at 03:00 Vitamin A/Vitamin D (Vitamin A & D Oint) 1 applic BID TOP Last administered on 03/19/17 08:23; Admin Dose 1 APPLIC; Start 03/15/17 at 14:00 Midodrine (Proamatine) 2.5 mg TID@,,17 PO Last administered on 03/18/17 17:46; Admin Dose 2.5 MG; Start 03/17/17 at 09:00 Levofloxacin (Levaquin) 500 mg DAILY@06 PO Last administered on 03/19/17 05: 39; Admin Dose 500 MG; Start 03/17/17 at 19:00 Metoclopramide HCl (Reglan Liq) 10 mg Q6H GTB Last administered on 03/19/17 09:53; Admin Dose 10 MG; Start 03/18/17 at 16:00 Pantoprazole (Protonix Tab) 40 mg DAILY@06 PO Last administered on 03/19/17 05:39; Admin Dose 40 MG; Start 03/19/17 at 06:00 Sodium Phosphate (Neutra-Phos) 250 mg BID PO ; Start 03/19/17 at 11:30; Stop 03/20/17 at 21:01 DIMA COVARRUBIAS Mar 19, 2017 12:32
[2017-03-19] MEDS: DIGOXIN 0.125 MG TAB PO SCH (12:37)
[2017-03-19] MEDS: NEUTRA-PHOS 250 MG PACKET PO SCH ×2 (13:33→23:25)
--- NOTE | 2017-03-19 14:59 | CONS ---
Date/Time of Note Date/Time of Note DATE: 03/19/17 TIME: 14:57 Assessment/Plan Assessment/Plan Chief Complaint/Hosp Course IMPRESSION: 1. Congestive heart failure exacerbation-systolic acute on chronic EF 35%by echo this admit 2. History of cardiomyopathy, decreased left ventricular ejection fraction. 35 % by echo this admit 3. Status post recent automatic implantable cardioverter-defibrillator generator change. 4. Pleural effusions, recurrent, status post PleurX catheter. 5. Metastatic breast carcinoma. 6. Hypoxia, improved. 7. Tachycardia consistent with sinus tachycardia. 8. Hypotension-borderline REcc: -Tele -continue coreg as tolerated -Continue digoxin -Wean off midodrine which is pure afterload in setting of systolic failure -Hold lasix diuresis and give IVF bolus and follow hr closely which patient now s/p IV placement in leg Problems: Consultation Date/Type/Reason Admit Date/Time Mar 08, 2017 at 22:13 Initial Consult Date 03/09/2017 Type of Consultation: cardiology Reason for Consultation cardiomyopathy Referring Provider: GARY CROSS MD Exam/Review of Systems Vital Signs Vitals Vital Signs Date Time Temp Pulse Resp B/P Pulse Ox O2 Delivery O2 Flow Rate FiO2 03/19/17 14:32 105 20 96 Nasal Cannula 5.0 03/19/17 12:10 98.3 87/52 Intake and Output 03/18/17 03/18/17 03/19/17 15:00 23:00 07:00 Intake Total 740 ml Balance 740 ml Exam Review of Systems: CONSTITUTIONAL: No fevers, chills. PULMONARY: No sob CARDIOVASCULAR: No chest pain/palpitations GASTROINTESTINAL: No nausea/vomiting. GENITOURINARY: No hematuria/dysuria. MUSCULOSKELETAL: No myagias/arthalgias. PSYCHIATRIC: The patient denies depression. NEUROLOGIC: No weakness Constitutional: alert Psych: no complaints Head: normocephalic ENMT: mucosa pink and moist Neck: jvd, supple Respiratory: diminished breath sounds Cardiovascular: other (tachycardic) Gastrointestinal: non-tender, soft Musculoskeletal: muscle weakness (generalized) Extremities: edema (none) Neurological: other (No focal deficits) Results Result Diagram: 03/19/17 0741 03/19/17 0741 Results 24 hrs Laboratory Tests Test 03/18/17 20:00 03/19/17 07:41 Urine Osmolality 593 White Blood Count 11.8 H Red Blood Count 3.00 L Hemoglobin 9.0 L Hematocrit 27.4 L Mean Corpuscular Volume 91.3 Mean Corpuscular Hemoglobin 30.0 Mean Corpuscular Hemoglobin Concent 32.8 Red Cell Distribution Width 16.0 H Platelet Count 254 Mean Platelet Volume 10.9 H Neutrophils % 86.8 H Lymphocytes % 1.0 L Monocytes % 7.8 Eosinophils % 1.2 Basophils % 0.2 Nucleated Red Blood Cells % 0.0 Neutrophils # 10.3 H Lymphocytes # 0.1 L Monocytes # 0.9 Eosinophils # 0.1 Basophils # 0.0 Nucleated Red Blood Cells # 0.0 Sodium Level 129 L Potassium Level 4.8 Chloride Level 94 L Carbon Dioxide Level 30 Anion Gap 10 Blood Urea Nitrogen 16 Creatinine 0.85 Glucose Level 169 Calcium Level 8.2 L Phosphorus Level 2.4 L Magnesium Level 1.7 Albumin 2.1 L Medications Medications Current Medications Ondansetron HCl/ Dextrose (Zofran Inj/D5W) 54 ml @ 108 mls/hr Q6H PRN IV NAUSEA AND/OR VOMITING Last administered on 03/12/17 12:57; Admin Dose 108 MLS /HR; Start 03/09/17 at 02:30 Aspirin (Halfprin) 81 mg DAILY PO Last administered on 03/19/17 08:23; Admin Dose 81 MG; Start 03/09/17 at 12:30 Atorvastatin Calcium (Lipitor) 20 mg HS PO Last administered on 03/18/17 21: 59; Admin Dose 20 MG; Start 03/09/17 at 21:00 Digoxin (Digoxin) 0.125 mg DAILY@13 PO Last administered on 03/19/17 12:37; Admin Dose 0.125 MG; Start 03/09/17 at 13:00 Lorazepam (Ativan) 0.5 mg Q8H PRN PO ANXIETY; Start 03/09/17 at 12:30 Ondansetron HCl (Zofran Tab) 4 mg Q6H PRN PO NAUSEA AND/OR VOMITING; Start 03/09/17 at 12:30 Acetaminophen/ Hydrocodone Bitart ([place] (5/325)) 1 tab Q6H PRN PO PAIN LEVEL 6 -10 Last administered on 03/15/17 20:53; Admin Dose 1 TAB; Start 03/09/17 at 12:30 Bisacodyl (Dulcolax) 5 mg DAILY PRN PO CONSTIPATION; Start 03/09/17 at 12:30 Carvedilol (Coreg) 3.125 mg BID PO Last administered on 03/19/17 09:55; Admin Dose 3.125 MG; Start 03/09/17 at 21:30 Enoxaparin Sodium (Lovenox) 40 mg DAILY SC Last administered on 03/19/17 08: 24; Admin Dose 40 MG; Start 03/11/17 at 17:00 Lorazepam (Ativan) 0.25 mg Q8H PRN IV ANXIETY Last administered on 03/14/17 03:09; Admin Dose 0.25 MG; Start 03/14/17 at 03:00 Vitamin A/Vitamin D (Vitamin A & D Oint) 1 applic BID TOP Last administered on 03/19/17 08:23; Admin Dose 1 APPLIC; Start 03/15/17 at 14:00 Midodrine (Proamatine) 2.5 mg TID@,,17 PO Last administered on 03/19/17 12:37; Admin Dose 2.5 MG; Start 03/17/17 at 09:00 Levofloxacin (Levaquin) 500 mg DAILY@06 PO Last administered on 03/19/17 05: 39; Admin Dose 500 MG; Start 03/17/17 at 19:00 Metoclopramide HCl (Reglan Liq) 10 mg Q6H GTB Last administered on 03/19/17 09:53; Admin Dose 10 MG; Start 03/18/17 at 16:00 Pantoprazole (Protonix Tab) 40 mg DAILY@06 PO Last administered on 03/19/17 05:39; Admin Dose 40 MG; Start 03/19/17 at 06:00 Sodium Phosphate (Neutra-Phos) 250 mg BID PO Last administered on 03/19/17 13 :33; Admin Dose 250 MG; Start 03/19/17 at 11:30; Stop 03/20/17 at 21:01 ROXIE VELARDE 19, 2017 14:59
[2017-03-19] MEDS ORDERED: DIGOXIN 500 MCG INJ IV ONE (15:00)
[2017-03-19] MEDS ORDERED: SOD CHLORIDE 0.9% 250 ML IV ONE (15:00)
[2017-03-19] MEDS ORDERED: SOD CHLORIDE 0.9% 500 ML IV SCH (16:30)
[2017-03-19] MEDS: ATORVASTATIN 20 MG TAB PO SCH (23:24)
[2017-03-20] VITALS (12 sets, daily range): BP systolic 90–110; BP diastolic 53–59; PULSE 98–126; RESP 16–22
[2017-03-20] MEDS: LEVOFLOXACIN 500 MG TAB PO SCH (06:11)
[2017-03-20] MEDS: METOCLOPRAMIDE (1 MG/ML) 10 ML CUP GTB SCH ×4 (06:11→22:46)
[2017-03-20] MEDS: PANTOPRAZOLE (EC) 40 MG TAB PO SCH (06:11)
[2017-03-20 07:45] LABS: ABNORMAL IP MESSAGE 1; BASOPHILS % 0.3 % (0.0-2.0); EOSINOPHILS # 0.2 10^3/ul (0.0-0.5); EOSINOPHILS % 1.2 % (0.0-7.0); HEMATOCRIT 29.8 % (37.0-47.0); HEMOGLOBIN 9.6 g/dl (12.0-16.0); LYMPHOCYTES # 0.1 10^3/ul (0.8-2.9); LYMPHOCYTES % 0.8 % (15.0-51.0); MEAN CORPUSCULAR HEMOGLOBIN 29.4 pg (29.0-33.0); MEAN CORPUSCULAR HGB CONC 32.2 g/dl (32.0-37.0); MEAN CORPUSCULAR VOLUME 91.4 fl (82.0-101.0); MEAN PLATELET VOLUME 10.5 fl (7.4-10.4); MONOCYTES % 6.8 % (0.0-11.0); NEUTROPHIL # 12.6 10^3/ul (1.6-7.5); NEUTROPHILS % 87.5 % (39.0-77.0); PLATELET COUNT 280 10^3/UL (140-415); RED BLOOD COUNT 3.26 10^6/ul (4.20-5.40); RED CELL DISTRIBUTION WIDTH 16.2 % (11.5-14.5); WHITE BLOOD COUNT 14.4 10^3/ul (4.8-10.8)
[2017-03-20 07:48] LABS: POSITIVE DIFF @See below
[2017-03-20] MEDS: ALBUTEROL/IPRATROPIUM (NEB) 3 ML AMP HHN SCH ×3 (08:00→20:00)
[2017-03-20 08:23] LABS: ALBUMIN 2.4 g/dl (3.3-4.9); CALCIUM 7.9 mg/dl (8.4-10.2); CREATININE 0.78 mg/dl (0.44-1.00); MAGNESIUM 1.7 mg/dl (1.7-2.5); PHOSPHORUS 2.6 mg/dl (2.5-4.9); POTASSIUM 4.6 mmol/L (3.5-5.1)
[2017-03-20] MEDS: ASPIRIN (EC) 81 MG TAB PO SCH (09:00)
[2017-03-20] MEDS: VITAMIN A & D 5 GM OINT PACKET TOP SCH ×2 (09:00→20:53)
[2017-03-20] MEDS: NEUTRA-PHOS 250 MG PACKET PO SCH ×2 (09:00→20:53)
[2017-03-20] MEDS: MIDODRINE 2.5 MG TAB PO SCH ×3 (09:00→17:49)
[2017-03-20] MEDS: ENOXAPARIN 40 MG/0.4 ML SYG SC SCH (09:02)
[2017-03-20 09:26] LABS: ADD UMIC YES; UR ASCORBIC ACID 40 mg/dL (NEGATIVE); UR BACTERIA FEW /HPF (NONE SEEN); UR BILIRUBIN (Dip) NEGATIVE (NEGATIVE); UR BLOOD (Dip) NEGATIVE (NEGATIVE); UR CLARITY CLOUDY (CLEAR); UR COLOR YELLOW (YELLOW); UR GLUCOSE (Dip) 1+ mg/dL (NEGATIVE); UR KETONES (Dip) NEGATIVE (NEGATIVE); UR LEUKOCYTE ESTERASE (Dip) 3+ Leu/ul (NEGATIVE); UR NITRITE (Dip) NEGATIVE (NEGATIVE); UR RBC 27 /HPF (0-5); UR SPECIFIC GRAVITY (Dip) 1.023 (1.003-1.030); UR SQUAMOUS EPITHELIAL CELL FEW /HPF (FEW); UR TOTAL PROTEIN (Dip) 1+ mg/dl (NEGATIVE); UR UROBILINOGEN (Dip) 2+ mg/dL (NEGATIVE)
--- NOTE | 2017-03-20 10:04 | CONS ---
Date/Time of Note Date/Time of Note DATE: 03/20/17 TIME: 10:03 Assessment/Plan Assessment/Plan Chief Complaint/Hosp Course 1. Recurrent hyponatremia, better [id number] to 133 2. Urinary tract infection. 3. Congestive heart failure, systolic and chronic EF 35% by echo this admit. 4. History of cardiomyopathy, decreased ejection fraction. 5. Status post AICD generator change. 6. Pleural effusion, recurrent, status post PleurX. 7. Metastatic breast carcinoma. 8. Hypoxia. 9. Sinus tachycardia. Problems: Additional Assessment/Plan 1. Continue treatment 2. optimization kidney function Consultation Date/Type/Reason Admit Date/Time Mar 08, 2017 at 22:13 Initial Consult Date 03/17/17 Type of Consultation: nephrology Reason for Consultation Dr Boss Referring Provider: GARY CROSS MD 24 HR Interval Summary Constitutional: improved Exam/Review of Systems Vital Signs Vitals Vital Signs Date Time Temp Pulse Resp B/P Pulse Ox O2 Delivery O2 Flow Rate FiO2 03/20/17 08:41 5.0 03/20/17 08:38 98.2 128 16 103/59 95 03/20/17 08:34 Nasal Cannula Intake and Output 03/19/17 03/19/17 03/20/17 14:59 22:59 06:59 Intake Total 650 ml 850 ml Balance 650 ml 850 ml Exam Constitutional: alert, oriented ENMT: nl external ears & nose Neck: supple Respiratory: diminished breath sounds Cardiovascular: regular rate and rhythm Results Result Diagram: 03/20/17 0716 03/20/17 0716 Results 24 hrs Laboratory Tests Test 03/20/17 07:16 03/20/17 08:20 White Blood Count 14.4 #H Red Blood Count 3.26 L Hemoglobin 9.6 L Hematocrit 29.8 L Mean Corpuscular Volume 91.4 Mean Corpuscular Hemoglobin 29.4 Mean Corpuscular Hemoglobin Concent 32.2 Red Cell Distribution Width 16.2 H Platelet Count 280 Mean Platelet Volume 10.5 H Neutrophils % 87.5 H Lymphocytes % 0.8 L Monocytes % 6.8 Eosinophils % 1.2 Basophils % 0.3 Nucleated Red Blood Cells % 0.0 Neutrophils # 12.6 H Lymphocytes # 0.1 L Monocytes # 1.0 H Eosinophils # 0.2 Basophils # 0.0 Nucleated Red Blood Cells # 0.0 Sodium Level 133 L Potassium Level 4.6 Chloride Level 96 L Carbon Dioxide Level 31 Anion Gap 11 Blood Urea Nitrogen 19 Creatinine 0.78 Glucose Level 172 Calcium Level 7.9 L Phosphorus Level 2.6 Magnesium Level 1.7 Albumin 2.4 L Urine Color YELLOW Urine Clarity CLOUDY A Urine pH 6.0 Urine Specific Maria Stein 1.023 Urine Ketones NEGATIVE Urine Nitrite NEGATIVE Urine Bilirubin NEGATIVE Urine Urobilinogen 2+ H Urine Leukocyte Esterase 3+ H Urine Microscopic RBC 27 H Urine Microscopic WBC > 182 H Urine Squamous Epithelial Cells FEW Urine Bacteria FEW A Urine Hemoglobin NEGATIVE Urine Glucose 1+ H Urine Total Protein 1+ H Medications Medications Current Medications Ondansetron HCl/ Dextrose (Zofran Inj/D5W) 54 ml @ 108 mls/hr Q6H PRN IV NAUSEA AND/OR VOMITING Last administered on 03/12/17 12:57; Admin Dose 108 MLS /HR; Start 03/09/17 at 02:30 Aspirin (Halfprin) 81 mg DAILY PO Last administered on 03/20/17 09:00; Admin Dose 81 MG; Start 03/09/17 at 12:30 Atorvastatin Calcium (Lipitor) 20 mg HS PO Last administered on 03/19/17 23: 24; Admin Dose 20 MG; Start 03/09/17 at 21:00 Digoxin (Digoxin) 0.125 mg DAILY@13 PO Last administered on 03/19/17 12:37; Admin Dose 0.125 MG; Start 03/09/17 at 13:00 Lorazepam (Ativan) 0.5 mg Q8H PRN PO ANXIETY; Start 03/09/17 at 12:30 Ondansetron HCl (Zofran Tab) 4 mg Q6H PRN PO NAUSEA AND/OR VOMITING; Start 03/09/17 at 12:30 Acetaminophen/ Hydrocodone Bitart ([place] (5/325)) 1 tab Q6H PRN PO PAIN LEVEL 6 -10 Last administered on 03/15/17 20:53; Admin Dose 1 TAB; Start 03/09/17 at 12:30 Bisacodyl (Dulcolax) 5 mg DAILY PRN PO CONSTIPATION; Start 03/09/17 at 12:30 Carvedilol (Coreg) 3.125 mg BID PO Last administered on 03/20/17 09:08; Admin Dose 3.125 MG; Start 03/09/17 at 21:30 Enoxaparin Sodium (Lovenox) 40 mg DAILY SC Last administered on 03/20/17 09: 02; Admin Dose 40 MG; Start 03/11/17 at 17:00 Lorazepam (Ativan) 0.25 mg Q8H PRN IV ANXIETY Last administered on 03/14/17 03:09; Admin Dose 0.25 MG; Start 03/14/17 at 03:00 Vitamin A/Vitamin D (Vitamin A & D Oint) 1 applic BID TOP Last administered on 03/20/17 09:00; Admin Dose 1 APPLIC; Start 03/15/17 at 14:00 Midodrine (Proamatine) 2.5 mg TID@, PO Last administered on 03/20/17 09:00; Admin Dose 2.5 MG; Start 03/17/17 at 09:00 Levofloxacin (Levaquin) 500 mg DAILY@06 PO Last administered on 03/20/17 06: 11; Admin Dose 500 MG; Start 03/17/17 at 19:00 Metoclopramide HCl (Reglan Liq) 10 mg Q6H GTB Last administered on 03/20/17 09:07; Admin Dose 10 MG; Start 03/18/17 at 16:00 Pantoprazole (Protonix Tab) 40 mg DAILY@06 PO Last administered on 03/20/17 06:11; Admin Dose 40 MG; Start 03/19/17 at 06:00 Sodium Phosphate (Neutra-Phos) 250 mg BID PO Last administered on 03/20/17 09 :00; Admin Dose 250 MG; Start 03/19/17 at 11:30; Stop 03/20/17 at 21:01 GEORGE BISHOP Mar 20, 2017 10:04
[2017-03-20] MEDS: LORAZEPAM 2 MG INJ IV PRN (12:55)
[2017-03-20] MEDS: DIGOXIN 0.125 MG TAB PO SCH (12:56)
--- NOTE | 2017-03-20 13:32 | CONS ---
Date/Time of Note Date/Time of Note DATE: 03/20/17 TIME: 13:28 Assessment/Plan Assessment/Plan Chief Complaint/Hosp Course IMPRESSION: 1. Congestive heart failure exacerbation-systolic acute on chronic EF 35%by echo this admit 2. History of cardiomyopathy, decreased left ventricular ejection fraction. 35 % by echo this admit 3. Status post recent automatic implantable cardioverter-defibrillator generator change. 4. Pleural effusions, recurrent, status post PleurX catheter. 5. Metastatic breast carcinoma. 6. Hypoxia, improved. 7. Tachycardia consistent with sinus tachycardia-slowly improving with IVF 8. Hypotension-borderline 9. HYponatremia-slowly improving with IVF REcc: -Tele -continue coreg as tolerated -Continue digoxin -Wean off midodrine which is pure afterload in setting of systolic failure -Will continue to hold lasix and follow volume status closely and will give additional gentle IVF - Problems: Consultation Date/Type/Reason Admit Date/Time Mar 08, 2017 at 22:13 Initial Consult Date 03/09/2017 Type of Consultation: cardiology Reason for Consultation cardiomyopathy Referring Provider: GARY CROSS MD Exam/Review of Systems Vital Signs Vitals Vital Signs Date Time Temp Pulse Resp B/P Pulse Ox O2 Delivery O2 Flow Rate FiO2 03/20/17 12:04 98.0 115 16 98/56 94 03/20/17 08:41 5.0 03/20/17 08:34 Nasal Cannula Intake and Output 03/19/17 03/19/17 03/20/17 15:00 23:00 07:00 Intake Total 650 ml 850 ml Balance 650 ml 850 ml Exam Review of Systems: CONSTITUTIONAL: No fevers, chills. PULMONARY: No sob CARDIOVASCULAR: No chest pain/palpitations GASTROINTESTINAL: No nausea/vomiting. GENITOURINARY: No hematuria/dysuria. MUSCULOSKELETAL: No myagias/arthalgias. PSYCHIATRIC: The patient denies depression. NEUROLOGIC: No weakness Constitutional: alert, oriented Head: normocephalic ENMT: mucosa pink and moist Neck: jvd, supple Respiratory: diminished breath sounds Cardiovascular: regular rate and rhythm Gastrointestinal: soft Musculoskeletal: muscle tone Extremities: edema (none) Neurological: other (No ) Results Result Diagram: 03/20/17 0716 03/20/17 0716 Results 24 hrs Laboratory Tests Test 03/20/17 07:16 03/20/17 08:20 White Blood Count 14.4 #H Red Blood Count 3.26 L Hemoglobin 9.6 L Hematocrit 29.8 L Mean Corpuscular Volume 91.4 Mean Corpuscular Hemoglobin 29.4 Mean Corpuscular Hemoglobin Concent 32.2 Red Cell Distribution Width 16.2 H Platelet Count 280 Mean Platelet Volume 10.5 H Neutrophils % 87.5 H Lymphocytes % 0.8 L Monocytes % 6.8 Eosinophils % 1.2 Basophils % 0.3 Nucleated Red Blood Cells % 0.0 Neutrophils # 12.6 H Lymphocytes # 0.1 L Monocytes # 1.0 H Eosinophils # 0.2 Basophils # 0.0 Nucleated Red Blood Cells # 0.0 Sodium Level 133 L Potassium Level 4.6 Chloride Level 96 L Carbon Dioxide Level 31 Anion Gap 11 Blood Urea Nitrogen 19 Creatinine 0.78 Glucose Level 172 Calcium Level 7.9 L Phosphorus Level 2.6 Magnesium Level 1.7 Albumin 2.4 L Urine Color YELLOW Urine Clarity CLOUDY A Urine pH 6.0 Urine Specific [place] 1.023 Urine Ketones NEGATIVE Urine Nitrite NEGATIVE Urine Bilirubin NEGATIVE Urine Urobilinogen 2+ H Urine Leukocyte Esterase 3+ H Urine Microscopic RBC 27 H Urine Microscopic WBC > 182 H Urine Squamous Epithelial Cells FEW Urine Bacteria FEW A Urine Hemoglobin NEGATIVE Urine Glucose 1+ H Urine Total Protein 1+ H Medications Medications Current Medications Ondansetron HCl/ Dextrose (Zofran Inj/D5W) 54 ml @ 108 mls/hr Q6H PRN IV NAUSEA AND/OR VOMITING Last administered on 03/12/17 12:57; Admin Dose 108 MLS /HR; Start 03/09/17 at 02:30 Aspirin (Halfprin) 81 mg DAILY PO Last administered on 03/20/17 09:00; Admin Dose 81 MG; Start 03/09/17 at 12:30 Atorvastatin Calcium (Lipitor) 20 mg HS PO Last administered on 03/19/17 23: 24; Admin Dose 20 MG; Start 03/09/17 at 21:00 Digoxin (Digoxin) 0.125 mg DAILY@13 PO Last administered on 03/20/17 12:56; Admin Dose 0.125 MG; Start 03/09/17 at 13:00 Lorazepam (Ativan) 0.5 mg Q8H PRN PO ANXIETY; Start 03/09/17 at 12:30 Ondansetron HCl (Zofran Tab) 4 mg Q6H PRN PO NAUSEA AND/OR VOMITING; Start 03/09/17 at 12:30 Acetaminophen/ Hydrocodone Bitart ([place] (5/325)) 1 tab Q6H PRN PO PAIN LEVEL 6 -10 Last administered on 03/15/17 20:53; Admin Dose 1 TAB; Start 03/09/17 at 12:30 Bisacodyl (Dulcolax) 5 mg DAILY PRN PO CONSTIPATION; Start 03/09/17 at 12:30 Carvedilol (Coreg) 3.125 mg BID PO Last administered on 03/20/17 09:08; Admin Dose 3.125 MG; Start 03/09/17 at 21:30 Enoxaparin Sodium (Lovenox) 40 mg DAILY SC Last administered on 03/20/17 09: 02; Admin Dose 40 MG; Start 03/11/17 at 17:00 Lorazepam (Ativan) 0.25 mg Q8H PRN IV ANXIETY Last administered on 03/20/17 12:55; Admin Dose 0.25 MG; Start 03/14/17 at 03:00 Vitamin A/Vitamin D (Vitamin A & D Oint) 1 applic BID TOP Last administered on 03/20/17 09:00; Admin Dose 1 APPLIC; Start 03/15/17 at 14:00 Midodrine (Proamatine) 2.5 mg TID@,,17 PO Last administered on 03/20/17 12:56; Admin Dose 2.5 MG; Start 03/17/17 at 09:00 Levofloxacin (Levaquin) 500 mg DAILY@06 PO Last administered on 03/20/17 06: 11; Admin Dose 500 MG; Start 03/17/17 at 19:00 Metoclopramide HCl (Reglan Liq) 10 mg Q6H GTB Last administered on 03/20/17 09:07; Admin Dose 10 MG; Start 03/18/17 at 16:00 Pantoprazole (Protonix Tab) 40 mg DAILY@06 PO Last administered on 03/20/17 06:11; Admin Dose 40 MG; Start 03/19/17 at 06:00 Sodium Phosphate (Neutra-Phos) 250 mg BID PO Last administered on 03/20/17 09 :00; Admin Dose 250 MG; Start 03/19/17 at 11:30; Stop 03/20/17 at 21:01 ROXIE VELARDE Mar 20, 2017 13:32
[2017-03-20] MEDS ORDERED: SOD CHLORIDE 0.9% 750 ML IV SCH (14:00)
[2017-03-20] MEDS ORDERED: SOD CHLORIDE 0.9% 250 ML IV ONE (14:00)
--- NOTE | 2017-03-20 14:06 | CONS ---
Date/Time of Note Date/Time of Note DATE: 03/20/17 TIME: 14:04 Consult Date/Type/Reason Admit Date/Time Mar 08, 2017 at 22:13 Type of Consultation: Pulmonary Ordering Provider: GARY CROSS MD Subjective Son at bedside. Tachycardic and appears agitated. Objective Vital Signs Date Time Temp Pulse Resp B/P Pulse Ox O2 Delivery O2 Flow Rate FiO2 03/20/17 13:28 110 24 97 Nasal Cannula 5.0 03/20/17 12:04 98.0 98/56 Intake and Output 03/19/17 03/19/17 03/20/17 15:00 23:00 07:00 Intake Total 650 ml 850 ml Balance 650 ml 850 ml Exam GENERAL: Chronically ill-appearing lady appears comfortable at rest no acute distress VITAL SIGNS: per chart NECK: Supple. No JVD or lymphadenopathy. CARDIAC EXAM: S1, S2. No added sounds or murmurs. CHEST: Diminished air entry both lung bases. ABDOMEN: Soft, nontender. No guarding or rebound. EXTREMITIES: No cyanosis, clubbing or edema. NEUROLOGIC: Generalized weakness. No focal deficits. Results/Medications Result Diagram: 03/20/17 0716 03/20/17 0716 Results 24 hrs Laboratory Tests Test 03/20/17 07:16 03/20/17 08:20 White Blood Count 14.4 #H Red Blood Count 3.26 L Hemoglobin 9.6 L Hematocrit 29.8 L Mean Corpuscular Volume 91.4 Mean Corpuscular Hemoglobin 29.4 Mean Corpuscular Hemoglobin Concent 32.2 Red Cell Distribution Width 16.2 H Platelet Count 280 Mean Platelet Volume 10.5 H Neutrophils % 87.5 H Lymphocytes % 0.8 L Monocytes % 6.8 Eosinophils % 1.2 Basophils % 0.3 Nucleated Red Blood Cells % 0.0 Neutrophils # 12.6 H Lymphocytes # 0.1 L Monocytes # 1.0 H Eosinophils # 0.2 Basophils # 0.0 Nucleated Red Blood Cells # 0.0 Sodium Level 133 L Potassium Level 4.6 Chloride Level 96 L Carbon Dioxide Level 31 Anion Gap 11 Blood Urea Nitrogen 19 Creatinine 0.78 Glucose Level 172 Calcium Level 7.9 L Phosphorus Level 2.6 Magnesium Level 1.7 Albumin 2.4 L Urine Color YELLOW Urine Clarity CLOUDY A Urine pH 6.0 Urine Specific [place] 1.023 Urine Ketones NEGATIVE Urine Nitrite NEGATIVE Urine Bilirubin NEGATIVE Urine Urobilinogen 2+ H Urine Leukocyte Esterase 3+ H Urine Microscopic RBC 27 H Urine Microscopic WBC > 182 H Urine Squamous Epithelial Cells FEW Urine Bacteria FEW A Urine Hemoglobin NEGATIVE Urine Glucose 1+ H Urine Total Protein 1+ H Medications Current Medications Ondansetron HCl/ Dextrose (Zofran Inj/D5W) 54 ml @ 108 mls/hr Q6H PRN IV NAUSEA AND/OR VOMITING Last administered on 03/12/17 12:57; Admin Dose 108 MLS /HR; Start 03/09/17 at 02:30 Aspirin (Halfprin) 81 mg DAILY PO Last administered on 03/20/17 09:00; Admin Dose 81 MG; Start 03/09/17 at 12:30 Atorvastatin Calcium (Lipitor) 20 mg HS PO Last administered on 03/19/17 23: 24; Admin Dose 20 MG; Start 03/09/17 at 21:00 Digoxin (Digoxin) 0.125 mg DAILY@13 PO Last administered on 03/20/17 12:56; Admin Dose 0.125 MG; Start 03/09/17 at 13:00 Lorazepam (Ativan) 0.5 mg Q8H PRN PO ANXIETY; Start 03/09/17 at 12:30 Ondansetron HCl (Zofran Tab) 4 mg Q6H PRN PO NAUSEA AND/OR VOMITING; Start 03/09/17 at 12:30 Acetaminophen/ Hydrocodone Bitart ([place] (5/325)) 1 tab Q6H PRN PO PAIN LEVEL 6 -10 Last administered on 03/15/17 20:53; Admin Dose 1 TAB; Start 03/09/17 at 12:30 Bisacodyl (Dulcolax) 5 mg DAILY PRN PO CONSTIPATION; Start 03/09/17 at 12:30 Enoxaparin Sodium (Lovenox) 40 mg DAILY SC Last administered on 03/20/17 09: 02; Admin Dose 40 MG; Start 03/11/17 at 17:00 Lorazepam (Ativan) 0.25 mg Q8H PRN IV ANXIETY Last administered on 03/20/17 12:55; Admin Dose 0.25 MG; Start 03/14/17 at 03:00 Vitamin A/Vitamin D (Vitamin A & D Oint) 1 applic BID TOP Last administered on 03/20/17 09:00; Admin Dose 1 APPLIC; Start 03/15/17 at 14:00 Midodrine (Proamatine) 2.5 mg TID@,,17 PO Last administered on 03/20/17 12:56; Admin Dose 2.5 MG; Start 03/17/17 at 09:00 Levofloxacin (Levaquin) 500 mg DAILY@06 PO Last administered on 03/20/17 06: 11; Admin Dose 500 MG; Start 03/17/17 at 19:00 Metoclopramide HCl (Reglan Liq) 10 mg Q6H GTB Last administered on 03/20/17 09:07; Admin Dose 10 MG; Start 03/18/17 at 16:00 Pantoprazole (Protonix Tab) 40 mg DAILY@06 PO Last administered on 03/20/17 06:11; Admin Dose 40 MG; Start 03/19/17 at 06:00 Sodium Phosphate 250 mg 250 mg BID PO Last administered on 03/20/17 09:00; Admin Dose 250 MG; Start 03/19/17 at 11:30; Stop 03/20/17 at 21:01 Sodium Chloride 250 ml @ 250 mls/hr Q1H ONCE IV ; Start 03/20/17 at 14:00; Stop 03/20/17 at 14:59 Sodium Chloride (NS) 750 ml @ 60 mls/hr [id number] IV ; Start 03/20/17 at 14:00; Stop 03/21/17 at 02:29 Carvedilol (Coreg) 6.25 mg BID PO ; Start 03/20/17 at 21:00 Assessment/Plan Chief Complaint/Hosp Course Assessment 1. 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 Bilateral Pleurx catheters in place. Status post G-tube placement. 2. Persistent leukocytosis concerning for underlying infection. 3. Dysphagia with decreased p.o. intake. Status post G-tube placement. 4. Persistent tachycardia likely secondary to underlying malignancy and possible volume depletion. Plan 1. Continue daily Pleurx catheter drainage daily. 2. Pain control and anxiolytics 3. Consider bordering antibiotics 4. Continue tube feeding 5. Long discussion with patient's son at bedside explaining extremely poor prognosis and he wishes to focus more on her quality of life. [facility] contacted for possible inpatient hospice. Problems: STAN MAC MD, [facility] Mar 20, 2017 14:06
[2017-03-20] MEDS: morphine 2 MG INJ IV PRN (14:48)
--- NOTE | 2017-03-20 15:26 | PN ---
Date/Time of Note Date/Time of Note DATE: 03/20/17 TIME: 15:22 Assessment/Plan VTE Prophylaxis VTE Prophylaxis Intervention: SCD's Lines/Catheters IV Catheter Type (from [facility]): Peripheral IV Urinary Cath still in place: No Assessment/Plan Chief Complaint/Hosp Course Patient is a 81-year-old female who recently was discharged 2 days prior to previous admission, however patient's nursing home facility unit on oxygen and patient went into acute respiratory failure, and was sent to local ICU, transferred for insurance reasons. Assessment/Plan #palpitations -persistent -cardiology recs appreciated -multifactorial issues #. Acute on chronic respiratory failure secondary pleural effusions - abx stopped, unlikely PNA source, patient doing well - Will continue on NC and wean as tolerated to maintain O2 >90% - Pulmonology consulted and recommendations appreciated. Continue on daily pleurx drainage at night - Bronchodilators #. Elevated troponin -mild, cardiology aware, no intervention -no chest pain #. Dysphagia - GI reconsulted and recommendations appreciated - PEG tubed and tolerating tube feeds at 40cc/hr. Per GI will slowly increase to goal of 50. Pleasure feeds as well as tolerated -scheduled reglan #. Bilateral pleural effusions, malignant per path report in january, breast CA. - Pulmonology on board. Will need daily to q 3day pleurx drainage. - Continue on NC and wean as tolerating to keep saturations >90% #. Tachycardia - Cardiology on board and consultation appreciated - On Digoxin and coreg #. Hyponatremia - improved - Nephrology on board recs appreciated - No acute symptoms - monitor #. Cardiomyopathy, congestive heart failure, acute on chronic ejection fraction 45% - Cardiology on board and recommendations appreciated. - Continue statin, asa, coreg as tolerated - ICD battery change done #. 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 Merlos, oncology, outpatient. States patient is stage IV and not appropriate to continue chemotherapy at this time. Recommending Palliative care at this time. - Spoke with Family and they are not satisfied with plan and would like to continue to pursue treatment once patient discharged - Dr. Ray offered secondary opinion and agrees with Dr. Merlos in that patient is too debilitated to undergo chemotherapy #. Anemia of chronic disease - currently stable - will continue monitoring #. Disposition - Monitor sodium levels - SNF placement. Family would like [facility] - patient's family will at least listen to [facility] hospice staff as patient is appropriate for hospice at this time. Problems: Subjective 24 Hr Interval Summary Free Text/Dictation patient states she is anxious and not feeling well due to palpitations Exam/Review of Systems Vital Signs Vitals Vital Signs Date Time Temp Pulse Resp B/P Pulse Ox O2 Delivery O2 Flow Rate FiO2 03/20/17 13:28 110 24 97 Nasal Cannula 5.0 03/20/17 12:04 98.0 98/56 Intake and Output 03/19/17 03/19/17 03/20/17 15:00 23:00 07:00 Intake Total 650 ml 850 ml Balance 650 ml 850 ml Exam General: patient resting, mild distress due to palpitations Head: Normocephalic atraumatic Eyes: EOMI, pupils reactive to light Neck: Supple, nontender, midline Respiratory: crackles at bases bilaterally Cardiovascular: irregular rhythm, tachycardia, no obvious murmurs Gastrointestinal: non-tender to palpation, bowel sounds heard. Neurological: Moves all extremities spontaneously Results Result Diagram: 03/20/17 0716 03/20/17 0716 Results 24 hrs Laboratory Tests Test 03/20/17 07:16 03/20/17 08:20 White Blood Count 14.4 #H Red Blood Count 3.26 L Hemoglobin 9.6 L Hematocrit 29.8 L Mean Corpuscular Volume 91.4 Mean Corpuscular Hemoglobin 29.4 Mean Corpuscular Hemoglobin Concent 32.2 Red Cell Distribution Width 16.2 H Platelet Count 280 Mean Platelet Volume 10.5 H Neutrophils % 87.5 H Lymphocytes % 0.8 L Monocytes % 6.8 Eosinophils % 1.2 Basophils % 0.3 Nucleated Red Blood Cells % 0.0 Neutrophils # 12.6 H Lymphocytes # 0.1 L Monocytes # 1.0 H Eosinophils # 0.2 Basophils # 0.0 Nucleated Red Blood Cells # 0.0 Sodium Level 133 L Potassium Level 4.6 Chloride Level 96 L Carbon Dioxide Level 31 Anion Gap 11 Blood Urea Nitrogen 19 Creatinine 0.78 Glucose Level 172 Calcium Level 7.9 L Phosphorus Level 2.6 Magnesium Level 1.7 Albumin 2.4 L Urine Color YELLOW Urine Clarity CLOUDY A Urine pH 6.0 Urine Specific [place] 1.023 Urine Ketones NEGATIVE Urine Nitrite NEGATIVE Urine Bilirubin NEGATIVE Urine Urobilinogen 2+ H Urine Leukocyte Esterase 3+ H Urine Microscopic RBC 27 H Urine Microscopic WBC > 182 H Urine Squamous Epithelial Cells FEW Urine Bacteria FEW A Urine Hemoglobin NEGATIVE Urine Glucose 1+ H Urine Total Protein 1+ H Medications Medications Current Medications Ondansetron HCl/ Dextrose (Zofran Inj/D5W) 54 ml @ 108 mls/hr Q6H PRN IV NAUSEA AND/OR VOMITING Last administered on 03/12/17 12:57; Admin Dose 108 MLS /HR; Start 03/09/17 at 02:30 Aspirin (Halfprin) 81 mg DAILY PO Last administered on 03/20/17 09:00; Admin Dose 81 MG; Start 03/09/17 at 12:30 Atorvastatin Calcium (Lipitor) 20 mg HS PO Last administered on 03/19/17 23: 24; Admin Dose 20 MG; Start 03/09/17 at 21:00 Digoxin (Digoxin) 0.125 mg DAILY@13 PO Last administered on 03/20/17 12:56; Admin Dose 0.125 MG; Start 03/09/17 at 13:00 Lorazepam (Ativan) 0.5 mg Q8H PRN PO ANXIETY; Start 03/09/17 at 12:30 Ondansetron HCl (Zofran Tab) 4 mg Q6H PRN PO NAUSEA AND/OR VOMITING; Start 03/09/17 at 12:30 Acetaminophen/ Hydrocodone Bitart ([place] (5/325)) 1 tab Q6H PRN PO PAIN LEVEL 6 -10 Last administered on 03/15/17 20:53; Admin Dose 1 TAB; Start 03/09/17 at 12:30 Bisacodyl (Dulcolax) 5 mg DAILY PRN PO CONSTIPATION; Start 03/09/17 at 12:30 Enoxaparin Sodium (Lovenox) 40 mg DAILY SC Last administered on 03/20/17 09: 02; Admin Dose 40 MG; Start 03/11/17 at 17:00 Vitamin A/Vitamin D (Vitamin A & D Oint) 1 applic BID TOP Last administered on 03/20/17 09:00; Admin Dose 1 APPLIC; Start 03/15/17 at 14:00 Midodrine (Proamatine) 2.5 mg TID@,,17 PO Last administered on 03/20/17 12:56; Admin Dose 2.5 MG; Start 03/17/17 at 09:00 Levofloxacin (Levaquin) 500 mg DAILY@06 PO Last administered on 03/20/17 06: 11; Admin Dose 500 MG; Start 03/17/17 at 19:00 Metoclopramide HCl (Reglan Liq) 10 mg Q6H GTB Last administered on 03/20/17 09:07; Admin Dose 10 MG; Start 03/18/17 at 16:00 Pantoprazole (Protonix Tab) 40 mg DAILY@06 PO Last administered on 03/20/17 06:11; Admin Dose 40 MG; Start 03/19/17 at 06:00 Sodium Phosphate 250 mg 250 mg BID PO Last administered on 03/20/17 09:00; Admin Dose 250 MG; Start 03/19/17 at 11:30; Stop 03/20/17 at 21:01 Sodium Chloride (NS) 750 ml @ 60 mls/hr [id number] IV Last administered on 14:48; Admin Dose 60 MLS/HR; Start 03/20/17 at 14:00; Stop 03/21/17 at 02 :29 Carvedilol (Coreg) 6.25 mg BID PO ; Start 03/20/17 at 21:00 Morphine Sulfate (morphine) 2 mg Q4H PRN IV PAIN LEVEL 4-6 Last administered on 03/20/17 14:48; Admin Dose 2 MG; Start 03/20/17 at 14:30 Lorazepam (Ativan) 0.5 mg TID PRN PEG anxiety; Start 03/20/17 at 15:30; Status DIMA FERNÁNDEZ Mar 20, 2017 15:26
[2017-03-20] MEDS: ATORVASTATIN 20 MG TAB PO SCH (20:49)
[2017-03-20] MEDS: LORAZEPAM 0.5 MG TAB PEG PRN (21:57)
[2017-03-21] VITALS (12 sets, daily range): BP systolic 86–106; BP diastolic 50–59; PULSE 76–120; RESP 17–20
[2017-03-21] MEDS: PANTOPRAZOLE (EC) 40 MG TAB PO SCH (05:49)
[2017-03-21] MEDS: METOCLOPRAMIDE (1 MG/ML) 10 ML CUP GTB SCH ×4 (05:49→21:05)
[2017-03-21] MEDS: LEVOFLOXACIN 500 MG TAB PO SCH (05:49)
[2017-03-21] MEDS: ALBUTEROL/IPRATROPIUM (NEB) 3 ML AMP HHN SCH ×3 (08:00→21:00)
[2017-03-21 08:38] LABS: ABNORMAL IP MESSAGE 1; BASOPHILS % 0.1 % (0.0-2.0); EOSINOPHILS # 0.2 10^3/ul (0.0-0.5); EOSINOPHILS % 1.5 % (0.0-7.0); HEMATOCRIT 25.9 % (37.0-47.0); HEMOGLOBIN 8.4 g/dl (12.0-16.0); LYMPHOCYTES # 0.2 10^3/ul (0.8-2.9); LYMPHOCYTES % 1.3 % (15.0-51.0); MEAN CORPUSCULAR HEMOGLOBIN 29.3 pg (29.0-33.0); MEAN CORPUSCULAR HGB CONC 32.4 g/dl (32.0-37.0); MEAN CORPUSCULAR VOLUME 90.2 fl (82.0-101.0); MEAN PLATELET VOLUME 12.1 fl (7.4-10.4); MONOCYTES % 7.4 % (0.0-11.0); NEUTROPHILS % 86.7 % (39.0-77.0); PLATELET COUNT 207 10^3/UL (140-415); RED BLOOD COUNT 2.87 10^6/ul (4.20-5.40); RED CELL DISTRIBUTION WIDTH 16.5 % (11.5-14.5); WHITE BLOOD COUNT 13.8 10^3/ul (4.8-10.8)
[2017-03-21 08:59] LABS: CALCIUM 7.4 mg/dl (8.4-10.2); CREATININE 0.71 mg/dl (0.44-1.00); PHOSPHORUS 3.1 mg/dl (2.5-4.9); POTASSIUM 4.9 mmol/L (3.5-5.1)
[2017-03-21] MEDS: MIDODRINE 2.5 MG TAB PO SCH ×4 (09:00→18:07)
[2017-03-21 09:22] LABS: MAGNESIUM 1.7 mg/dl (1.7-2.5)
--- NOTE | 2017-03-21 09:57 | RADRPT ---
PROCEDURE: XR Chest. CLINICAL INDICATION: Pneumonia . Congestive heart failure TECHNIQUE: Single frontal chest x-ray. COMPARISON: 03/15/2017 FINDINGS: There is increased opacity of the right hemithorax consistent with worsening pleural effusion and co nsolidation. Pleural fluid or thickening is seen partially loculated at the right apex and minor fis sure. Left basilar atelectasis is unchanged. . Calcific atherosclerosis of the tortuous ectatic thor acic aorta is present.. The cardiomediastinal silhouette is unremarkable. The osseous structures ar e intact. Left-sided AICD is in place. Bilateral pleural catheters are in place unchanged. There is no evidence of pneumothorax. Right axillary node dissection clips are present. IMPRESSION: Left-sided AICD and bilateral pleural catheters in place unchanged. Increased right pulmonary consolidation and partially loculated pleural effusion. RPTAT: [facility] .Torsten Reyes MD, Date Time Electronically viewed and signed by .Torsten Reyes MD, on 03/21/2017 09:56 .L/
--- NOTE | 2017-03-21 10:14 | CONS ---
Date/Time of Note Date/Time of Note DATE: 03/21/17 TIME: 10:12 Assessment/Plan Assessment/Plan Additional Assessment/Plan 1. Congestive heart failure exacerbation-systolic acute on chronic EF 35%by echo this admit - con't to keep euvolemic. 2. History of cardiomyopathy, decreased left ventricular ejection fraction. 35 % by echo this admit - BiV ICD in place. 3. Status post recent automatic implantable cardioverter-defibrillator generator change. 4. Pleural effusions, recurrent, status post PleurX catheter- still with fluid retention, malignant. 5. Metastatic breast carcinoma- Stage IV, onc follows. 6. Hypoxia, improved. 7. Tachycardia consistent with sinus tachycardia- treat underlined dz. 8. Hypotension-borderline 9. HYponatremia-slowly improving with IVF Consultation Date/Type/Reason Admit Date/Time Mar 08, 2017 at 22:13 Type of Consultation: Pulmonary Referring Provider: GARY CROSS MD 24 HR Interval Summary Free Text/Dictation NO acute events - pt malaise appearing. NO CP - tachy - con't supportive care. ROS: No fever, + chills, no nausea, no vomiting, no diarrhea/constipation No recent weight changes No chest pain, no PND, no orthopnea + SOB No dizziness, blurred vision No thirst, no heat or cold intolerance Exam/Review of Systems Vital Signs Vitals Vital Signs Date Time Temp Pulse Resp B/P Pulse Ox O2 Delivery O2 Flow Rate FiO2 03/21/17 08:06 116 03/21/17 07:16 97.9 20 96/53 96 03/20/17 21:15 5.0 03/20/17 20:00 Nasal Cannula Intake and Output 03/20/17 03/20/17 03/21/17 15:00 23:00 07:00 Intake Total 600 ml 650 ml 325 ml Balance 600 ml 650 ml 325 ml Exam General: WN/WD/NAD, AOx 2-3 HEENT: Unicetric/atraumatic/EOMI (follows commands) NECK: JVD elevated, no thyromegaly Lymph: no lymphadenopathy HEART: regular with no S3, II/ systolic murmur at apex - ICD site treated LUNGS: Coarse sounds ABD: soft, NT, ND, +BS : Intact Neuro: non focal SKIN: chronic changes EXT: trace edema Results Result Diagram: 11/21/17 0808 11/21/17 0808 Results 24 hrs Laboratory Tests Test 03/21/17 08:08 White Blood Count 13.8 H Red Blood Count 2.87 L Hemoglobin 8.4 L Hematocrit 25.9 L Mean Corpuscular Volume 90.2 Mean Corpuscular Hemoglobin 29.3 Mean Corpuscular Hemoglobin Concent 32.4 Red Cell Distribution Width 16.5 H Platelet Count 207 # Mean Platelet Volume 12.1 H Neutrophils % 86.7 H Lymphocytes % 1.3 L Monocytes % 7.4 Eosinophils % 1.5 Basophils % 0.1 Nucleated Red Blood Cells % 0.0 Neutrophils # 12.0 H Lymphocytes # 0.2 L Monocytes # 1.0 H Eosinophils # 0.2 Basophils # 0.0 Nucleated Red Blood Cells # 0.0 Sodium Level 131 L Potassium Level 4.9 Chloride Level 97 Carbon Dioxide Level 30 Anion Gap 9 Blood Urea Nitrogen 22 H Creatinine 0.71 Glucose Level 173 Calcium Level 7.4 L Phosphorus Level 3.1 Magnesium Level 1.7 Medications Medications Current Medications Ondansetron HCl/ Dextrose (Zofran Inj/D5W) 54 ml @ 108 mls/hr Q6H PRN IV NAUSEA AND/OR VOMITING Last administered on 03/12/17 12:57; Admin Dose 108 MLS /HR; Start 03/09/17 at 02:30 Aspirin (Halfprin) 81 mg DAILY PO Last administered on 03/20/17 09:00; Admin Dose 81 MG; Start 03/09/17 at 12:30 Atorvastatin Calcium (Lipitor) 20 mg HS PO Last administered on 03/20/17 20: 49; Admin Dose 20 MG; Start 03/09/17 at 21:00 Digoxin (Digoxin) 0.125 mg DAILY@13 PO Last administered on 03/20/17 12:56; Admin Dose 0.125 MG; Start 03/09/17 at 13:00 Lorazepam (Ativan) 0.5 mg Q8H PRN PO ANXIETY; Start 03/09/17 at 12:30 Ondansetron HCl (Zofran Tab) 4 mg Q6H PRN PO NAUSEA AND/OR VOMITING; Start 03/09/17 at 12:30 Acetaminophen/ Hydrocodone Bitart ([place] (5/325)) 1 tab Q6H PRN PO PAIN LEVEL 6 -10 Last administered on 03/15/17 20:53; Admin Dose 1 TAB; Start 03/09/17 at 12:30 Bisacodyl (Dulcolax) 5 mg DAILY PRN PO CONSTIPATION; Start 03/09/17 at 12:30 Enoxaparin Sodium (Lovenox) 40 mg DAILY SC Last administered on 03/20/17 09: 02; Admin Dose 40 MG; Start 03/11/17 at 17:00 Vitamin A/Vitamin D (Vitamin A & D Oint) 1 applic BID TOP Last administered on 03/20/17 20:53; Admin Dose 1 APPLIC; Start 03/15/17 at 14:00 Midodrine (Proamatine) 2.5 mg TID@,,17 PO Last administered on 03/20/17 17:49; Admin Dose 2.5 MG; Start 03/17/17 at 09:00 Levofloxacin (Levaquin) 500 mg DAILY@06 PO Last administered on 03/21/17 05: 49; Admin Dose 500 MG; Start 03/17/17 at 19:00 Metoclopramide HCl (Reglan Liq) 10 mg Q6H GTB Last administered on 03/21/17 05:49; Admin Dose 10 MG; Start 03/18/17 at 16:00 Pantoprazole (Protonix Tab) 40 mg DAILY@06 PO Last administered on 03/21/17 05:49; Admin Dose 40 MG; Start 03/19/17 at 06:00 Carvedilol (Coreg) 6.25 mg BID PO Last administered on 03/20/17 20:53; Admin Dose 6.25 MG; Start 03/20/17 at 21:00 Morphine Sulfate (morphine) 2 mg Q4H PRN IV PAIN LEVEL 4-6 Last administered on 03/20/17 14:48; Admin Dose 2 MG; Start 03/20/17 at 14:30 Lorazepam (Ativan) 0.5 mg TID PRN PEG anxiety Last administered on 03/20/17 21:57; Admin Dose 0.5 MG; Start 03/20/17 at 15:30 STEFANY BOYCE MD Mar 21, 2017 10:14
[2017-03-21] MEDS: ASPIRIN (EC) 81 MG TAB PO SCH (10:15)
[2017-03-21] MEDS: VITAMIN A & D 5 GM OINT PACKET TOP SCH ×2 (10:15→20:33)
[2017-03-21] MEDS: ENOXAPARIN 40 MG/0.4 ML SYG SC SCH (10:18)
--- NOTE | 2017-03-21 13:31 | PN ---
Date/Time of Note Date/Time of Note DATE: 03/21/17 TIME: 13:30 Assessment/Plan VTE Prophylaxis VTE Prophylaxis Intervention: SCD's Lines/Catheters [facility] Saline Lock Urinary Cath still in place: No Assessment/Plan Chief Complaint/Hosp Course Assessment/Plan Chief Complaint/Hosp Course Assessment: Dysphagia- s/p EGD with dilation. PEG 03/15/17 Extrinsic compression midesophagus Post uneventful PEG Placement of [place] 20 GT Persistent nausea Acute on chronic respiratory failure Elevated troponin Bilateral pleural effusions, likely malignant Tachycardia Hyponatremia- stable Cardiomyopathy H/o Metastatic breast cancer with bone and pelvic mets Anemia of chronic disease Plan: Tolerated TF well Continue oral intake for pleasure Gastrostomy tube and site routine care Continue Reglan every 6 hours [id number] PPI therapy Pt seen in collaboration with Dr. Chaves Subjective: Course reviewed with nursing staff Patient interviewed and examined All labs, imaging and other results reviewed The patient resting in bed, no c/o nausea today, TF at goal, Continue PEG care We will continue present regimen. PHYSICAL EXAMINATION: GENERAL: Well developed, well nourished, alert & oriented x 3, in no acute distress SKIN: No lesions, no stigmata chronic liver disease, no evidence of bleeding diathesis, PEG in place LYMPHATIC: No palpable lymphadenopathy. HEAD: Normocephalic, atraumatic, no tenderness. EYES: Pupils equal reactive to light and accommodation, full extraocular movements, sclera clear, non-icteric, no discharge. EARS/NOSE AND THROAT: Ears normal, nose normal, oropharynx normal, oral membranes well hydrated without lesions. NECK: Supple, no masses, thyroid normal, JVP within normal limits, carotids normal without bruits. CHEST: Inspection within normal limits. CARDIOVASCULAR: Heart: Regular rate and rhythm, no murmurs, gallops or rubs. Peripheral pulses present within normal limits, no cyanosis, clubbing or edemas. No pulsatile abdominal mass RESPIRATORY: Rales- bilat pleural catheters in place GASTROINTESTINAL AND LIVER: Abdomen: Gastrostomy tube in place. Soft, non tenderness, non-distended, no hernias, no masses, no organomegaly, no ascites, no guarding, no rebound tenderness, normoactive bowel sounds. Rectal: Deferred. EXTREMITIES: No cyanosis clubbing or edema, no evidence of DVT. Problems: Exam/Review of Systems Vital Signs Vitals Vital Signs Date Time Temp Pulse Resp B/P Pulse Ox O2 Delivery O2 Flow Rate FiO2 03/21/17 12:10 117 03/21/17 11:45 98.3 20 95/59 96 03/21/17 11:31 5.0 03/21/17 08:00 Nasal Cannula Intake and Output 03/20/17 03/20/17 03/21/17 15:00 23:00 07:00 Intake Total 600 ml 650 ml 325 ml Balance 600 ml 650 ml 325 ml Results Result Diagram: 03/21/17 0808 03/21/17 0808 Results 24 hrs Laboratory Tests Test 03/21/17 08:08 White Blood Count 13.8 H Red Blood Count 2.87 L Hemoglobin 8.4 L Hematocrit 25.9 L Mean Corpuscular Volume 90.2 Mean Corpuscular Hemoglobin 29.3 Mean Corpuscular Hemoglobin Concent 32.4 Red Cell Distribution Width 16.5 H Platelet Count 207 # Mean Platelet Volume 12.1 H Neutrophils % 86.7 H Lymphocytes % 1.3 L Monocytes % 7.4 Eosinophils % 1.5 Basophils % 0.1 Nucleated Red Blood Cells % 0.0 Neutrophils # 12.0 H Lymphocytes # 0.2 L Monocytes # 1.0 H Eosinophils # 0.2 Basophils # 0.0 Nucleated Red Blood Cells # 0.0 Sodium Level 131 L Potassium Level 4.9 Chloride Level 97 Carbon Dioxide Level 30 Anion Gap 9 Blood Urea Nitrogen 22 H Creatinine 0.71 Glucose Level 173 Calcium Level 7.4 L Phosphorus Level 3.1 Magnesium Level 1.7 Medications Medications Current Medications Ondansetron HCl/ Dextrose (Zofran Inj/D5W) 54 ml @ 108 mls/hr Q6H PRN IV NAUSEA AND/OR VOMITING Last administered on 03/12/17 12:57; Admin Dose 108 MLS /HR; Start 03/09/17 at 02:30 Aspirin (Halfprin) 81 mg DAILY PO Last administered on 03/21/17 10:15; Admin Dose 81 MG; Start 03/09/17 at 12:30 Atorvastatin Calcium (Lipitor) 20 mg HS PO Last administered on 03/20/17 20: 49; Admin Dose 20 MG; Start 03/09/17 at 21:00 Digoxin (Digoxin) 0.125 mg DAILY@13 PO Last administered on 03/20/17 12:56; Admin Dose 0.125 MG; Start 03/09/17 at 13:00 Lorazepam (Ativan) 0.5 mg Q8H PRN PO ANXIETY; Start 03/09/17 at 12:30 Ondansetron HCl (Zofran Tab) 4 mg Q6H PRN PO NAUSEA AND/OR VOMITING; Start 03/09/17 at 12:30 Acetaminophen/ Hydrocodone Bitart ([place] (5/325)) 1 tab Q6H PRN PO PAIN LEVEL 6 -10 Last administered on 03/15/17 20:53; Admin Dose 1 TAB; Start 03/09/17 at 12:30 Bisacodyl (Dulcolax) 5 mg DAILY PRN PO CONSTIPATION; Start 03/09/17 at 12:30 Enoxaparin Sodium (Lovenox) 40 mg DAILY SC Last administered on 03/21/17 10: 18; Admin Dose 40 MG; Start 03/11/17 at 17:00 Vitamin A/Vitamin D (Vitamin A & D Oint) 1 applic BID TOP Last administered on 03/21/17 10:15; Admin Dose 1 APPLIC; Start 03/15/17 at 14:00 Midodrine (Proamatine) 2.5 mg TID@,,17 PO Last administered on 03/21/17 10:26; Admin Dose 2.5 MG; Start 03/17/17 at 09:00 Levofloxacin (Levaquin) 500 mg DAILY@06 PO Last administered on 03/21/17 05: 49; Admin Dose 500 MG; Start 03/17/17 at 19:00 Metoclopramide HCl (Reglan Liq) 10 mg Q6H GTB Last administered on 03/21/17 10:15; Admin Dose 10 MG; Start 03/18/17 at 16:00 Pantoprazole (Protonix Tab) 40 mg DAILY@06 PO Last administered on 03/21/17 05:49; Admin Dose 40 MG; Start 03/19/17 at 06:00 Carvedilol (Coreg) 6.25 mg BID PO Last administered on 03/20/17 20:53; Admin Dose 6.25 MG; Start 03/20/17 at 21:00 Morphine Sulfate (morphine) 2 mg Q4H PRN IV PAIN LEVEL 4-6 Last administered on 03/20/17 14:48; Admin Dose 2 MG; Start 03/20/17 at 14:30 Lorazepam (Ativan) 0.5 mg TID PRN PEG anxiety Last administered on 03/20/17 21:57; Admin Dose 0.5 MG; Start 03/20/17 at 15:30 DINA SORIANO Mar 21, 2017 13:31
[2017-03-21] MEDS: DIGOXIN 0.125 MG TAB PO SCH (14:03)
--- NOTE | 2017-03-21 14:46 | PN ---
Date/Time of Note Date/Time of Note DATE: 03/21/17 TIME: 14:43 Assessment/Plan VTE Prophylaxis VTE Prophylaxis Intervention: LMWH, SCD's Lines/Catheters IV Catheter Type (from Nrs): Saline Lock Urinary Cath still in place: No Assessment/Plan Chief Complaint/Hosp Course Patient is a 81-year-old female who recently was discharged 2 days prior to previous admission, however patient's assisted facility unit on oxygen and patient went into acute respiratory failure, and was sent to local ICU, transferred for insurance reasons. Assessment/Plan #palpitations -persistent -cardiology recs appreciated -multifactorial issues #. Acute on chronic respiratory failure secondary pleural effusions - abx stopped, unlikely PNA source, patient doing well - Will continue on NC and wean as tolerated to maintain O2 >90% - Pulmonology consulted and recommendations appreciated. Continue on daily pleurx drainage at night - Bronchodilators #. Elevated troponin -mild, cardiology aware, no intervention -no chest pain #. Dysphagia - GI reconsulted and recommendations appreciated - PEG tubed and tolerating tube feeds well. Pleasure feeds as well as tolerated -scheduled reglan #. Bilateral pleural effusions, malignant per path report in january, breast CA. - Pulmonology on board. Will need daily to q 3day pleurx drainage. - Continue on NC and wean as tolerating to keep saturations >90% #. Tachycardia - Cardiology on board and consultation appreciated - On Digoxin and coreg #. Hyponatremia - improved - Nephrology on board recs appreciated - No acute symptoms - monitor #. Cardiomyopathy, congestive heart failure, acute on chronic ejection fraction 45% - Cardiology on board and recommendations appreciated. - Continue statin, asa, coreg as tolerated - ICD battery change done #. 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 Merlos, oncology, outpatient. States patient is stage IV and not appropriate to continue chemotherapy at this time. Recommending Palliative care at this time. - Spoke with Family and they are not satisfied with plan and would like to continue to pursue treatment once patient discharged - Dr. Ray offered secondary opinion and agrees with Dr. Merlos in that patient is too debilitated to undergo chemotherapy #. Anemia of chronic disease - currently stable - will continue monitoring #. Disposition - Monitor sodium levels - SNF placement. [facility] would like [facility] - patient's family undecided on hospice, however unlikely after speaking with son, as they would like continued care in the form of lab draws/xrays/ supportive care instead of total comfort care. -stabilize enough so that she will not be an automatic bounce back from SNF Problems: Subjective 24 Hr Interval Summary Free Text/Dictation sleeping, but easily arousable Exam/Review of Systems Vital Signs Vitals Vital Signs Date Time Temp Pulse Resp B/P Pulse Ox O2 Delivery O2 Flow Rate FiO2 03/21/17 14:16 109 22 98 Nasal Cannula 5.0 03/21/17 11:45 98.3 95/59 Intake and Output 03/20/17 03/20/17 03/21/17 15:00 23:00 07:00 Intake Total 600 ml 650 ml 325 ml Balance 600 ml 650 ml 325 ml Exam General: patient resting, mild distress due to palpitations Head: Normocephalic atraumatic Eyes: EOMI, pupils reactive to light Neck: Supple, nontender, midline Respiratory: crackles at bases bilaterally Cardiovascular: irregular rhythm, tachycardia, no obvious murmurs Gastrointestinal: non-tender to palpation, bowel sounds heard. Neurological: Moves all extremities spontaneously Results Result Diagram: 03/21/17 0808 03/21/17 0808 Results 24 hrs Laboratory Tests Test 03/21/17 08:08 White Blood Count 13.8 H Red Blood Count 2.87 L Hemoglobin 8.4 L Hematocrit 25.9 L Mean Corpuscular Volume 90.2 Mean Corpuscular Hemoglobin 29.3 Mean Corpuscular Hemoglobin Concent 32.4 Red Cell Distribution Width 16.5 H Platelet Count 207 # Mean Platelet Volume 12.1 H Neutrophils % 86.7 H Lymphocytes % 1.3 L Monocytes % 7.4 Eosinophils % 1.5 Basophils % 0.1 Nucleated Red Blood Cells % 0.0 Neutrophils # 12.0 H Lymphocytes # 0.2 L Monocytes # 1.0 H Eosinophils # 0.2 Basophils # 0.0 Nucleated Red Blood Cells # 0.0 Sodium Level 131 L Potassium Level 4.9 Chloride Level 97 Carbon Dioxide Level 30 Anion Gap 9 Blood Urea Nitrogen 22 H Creatinine 0.71 Glucose Level 173 Calcium Level 7.4 L Phosphorus Level 3.1 Magnesium Level 1.7 Medications Medications Current Medications Ondansetron HCl/ Dextrose (Zofran Inj/D5W) 54 ml @ 108 mls/hr Q6H PRN IV NAUSEA AND/OR VOMITING Last administered on 03/12/17 12:57; Admin Dose 108 MLS /HR; Start 03/09/17 at 02:30 Aspirin (Halfprin) 81 mg DAILY PO Last administered on 03/21/17 10:15; Admin Dose 81 MG; Start 03/09/17 at 12:30 Atorvastatin Calcium (Lipitor) 20 mg HS PO Last administered on 03/20/17 20: 49; Admin Dose 20 MG; Start 03/09/17 at 21:00 Digoxin (Digoxin) 0.125 mg DAILY@13 PO Last administered on 03/21/17 14:03; Admin Dose 0.125 MG; Start 03/09/17 at 13:00 Lorazepam (Ativan) 0.5 mg Q8H PRN PO ANXIETY; Start 03/09/17 at 12:30 Ondansetron HCl (Zofran Tab) 4 mg Q6H PRN PO NAUSEA AND/OR VOMITING; Start 03/09/17 at 12:30 Acetaminophen/ Hydrocodone Bitart ([place] (5/325)) 1 tab Q6H PRN PO PAIN LEVEL 6 -10 Last administered on 03/15/17 20:53; Admin Dose 1 TAB; Start 03/09/17 at 12:30 Bisacodyl (Dulcolax) 5 mg DAILY PRN PO CONSTIPATION; Start 03/09/17 at 12:30 Enoxaparin Sodium (Lovenox) 40 mg DAILY SC Last administered on 03/21/17 10: 18; Admin Dose 40 MG; Start 03/11/17 at 17:00 Vitamin A/Vitamin D (Vitamin A & D Oint) 1 applic BID TOP Last administered on 03/21/17 10:15; Admin Dose 1 APPLIC; Start 03/15/17 at 14:00 Midodrine (Proamatine) 2.5 mg TID@,,17 PO Last administered on 03/21/17 14:01; Admin Dose 2.5 MG; Start 03/17/17 at 09:00 Levofloxacin (Levaquin) 500 mg DAILY@06 PO Last administered on 03/21/17 05: 49; Admin Dose 500 MG; Start 03/17/17 at 19:00 Metoclopramide HCl (Reglan Liq) 10 mg Q6H GTB Last administered on 03/21/17 10:15; Admin Dose 10 MG; Start 03/18/17 at 16:00 Pantoprazole (Protonix Tab) 40 mg DAILY@06 PO Last administered on 03/21/17 05:49; Admin Dose 40 MG; Start 03/19/17 at 06:00 Carvedilol (Coreg) 6.25 mg BID PO Last administered on 03/20/17 20:53; Admin Dose 6.25 MG; Start 03/20/17 at 21:00 Morphine Sulfate (morphine) 2 mg Q4H PRN IV PAIN LEVEL 4-6 Last administered on 03/20/17 14:48; Admin Dose 2 MG; Start 03/20/17 at 14:30 Lorazepam (Ativan) 0.5 mg TID PRN PEG anxiety Last administered on 03/20/17 21:57; Admin Dose 0.5 MG; Start 03/20/17 at 15:30 DIMA COVARRUBIAS Mar 21, 2017 14:46
--- NOTE | 2017-03-21 19:46 | CONS ---
Date/Time of Note Date/Time of Note DATE: 03/21/17 TIME: 19:44 Assessment/Plan Assessment/Plan Chief Complaint/Hosp Course hief Complaint/Hosp Course 1. Recurrent hyponatremia, better [id number] to 133>131 2. Urinary tract infection. 3. Congestive heart failure, systolic and chronic EF 35% by echo this admit. 4. History of cardiomyopathy, decreased ejection fraction. 5. Status post AICD generator change. 6. Pleural effusion, recurrent, status post PleurX. 7. Metastatic breast carcinoma. 8. Hypoxia. 9. Sinus tachycardia. Recs - c.w monitor - fluid restriction Problems: Consultation Date/Type/Reason Admit Date/Time Mar 08, 2017 at 22:13 Initial Consult Date 03/17/17 Type of Consultation: Renal Referring Provider: GARY CROSS MD 24 HR Interval Summary Free Text/Dictation Tacycardic in pain Exam/Review of Systems Vital Signs Vitals Vital Signs Date Time Temp Pulse Resp B/P Pulse Ox O2 Delivery O2 Flow Rate FiO2 03/21/17 16:13 97.7 118 18 93/52 96 03/21/17 14:16 Nasal Cannula 5.0 Intake and Output 03/20/17 03/20/17 03/21/17 15:00 23:00 07:00 Intake Total 600 ml 650 ml 325 ml Balance 600 ml 650 ml 325 ml Exam Constitutional: alert, oriented ENMT: nl external ears & nose Neck: supple Respiratory: diminished breath sounds Cardiovascular: regular rate and rhythm Results Result Diagram: 03/21/17 0808 03/21/17 0808 Results 24 hrs Laboratory Tests Test 03/21/17 08:08 White Blood Count 13.8 H Red Blood Count 2.87 L Hemoglobin 8.4 L Hematocrit 25.9 L Mean Corpuscular Volume 90.2 Mean Corpuscular Hemoglobin 29.3 Mean Corpuscular Hemoglobin Concent 32.4 Red Cell Distribution Width 16.5 H Platelet Count 207 # Mean Platelet Volume 12.1 H Neutrophils % 86.7 H Lymphocytes % 1.3 L Monocytes % 7.4 Eosinophils % 1.5 Basophils % 0.1 Nucleated Red Blood Cells % 0.0 Neutrophils # 12.0 H Lymphocytes # 0.2 L Monocytes # 1.0 H Eosinophils # 0.2 Basophils # 0.0 Nucleated Red Blood Cells # 0.0 Sodium Level 131 L Potassium Level 4.9 Chloride Level 97 Carbon Dioxide Level 30 Anion Gap 9 Blood Urea Nitrogen 22 H Creatinine 0.71 Glucose Level 173 Calcium Level 7.4 L Phosphorus Level 3.1 Magnesium Level 1.7 Medications Medications Current Medications Ondansetron HCl/ Dextrose (Zofran Inj/D5W) 54 ml @ 108 mls/hr Q6H PRN IV NAUSEA AND/OR VOMITING Last administered on 03/12/17 12:57; Admin Dose 108 MLS /HR; Start 03/09/17 at 02:30 Aspirin (Halfprin) 81 mg DAILY PO Last administered on 03/21/17 10:15; Admin Dose 81 MG; Start 03/09/17 at 12:30 Atorvastatin Calcium (Lipitor) 20 mg HS PO Last administered on 03/20/17 20: 49; Admin Dose 20 MG; Start 03/09/17 at 21:00 Digoxin (Digoxin) 0.125 mg DAILY@13 PO Last administered on 03/21/17 14:03; Admin Dose 0.125 MG; Start 03/09/17 at 13:00 Lorazepam (Ativan) 0.5 mg Q8H PRN PO ANXIETY; Start 03/09/17 at 12:30 Ondansetron HCl (Zofran Tab) 4 mg Q6H PRN PO NAUSEA AND/OR VOMITING; Start 03/09/17 at 12:30 Acetaminophen/ Hydrocodone Bitart ([place] (5/325)) 1 tab Q6H PRN PO PAIN LEVEL 6 -10 Last administered on 03/15/17 20:53; Admin Dose 1 TAB; Start 03/09/17 at 12:30 Bisacodyl (Dulcolax) 5 mg DAILY PRN PO CONSTIPATION; Start 03/09/17 at 12:30 Enoxaparin Sodium (Lovenox) 40 mg DAILY SC Last administered on 03/21/17 10: 18; Admin Dose 40 MG; Start 03/11/17 at 17:00 Vitamin A/Vitamin D (Vitamin A & D Oint) 1 applic BID TOP Last administered on 03/21/17 10:15; Admin Dose 1 APPLIC; Start 03/15/17 at 14:00 Midodrine (Proamatine) 2.5 mg TID@09,13,17 PO Last administered on 03/21/17 18:07; Admin Dose 2.5 MG; Start 03/17/17 at 09:00 Levofloxacin (Levaquin) 500 mg DAILY@06 PO Last administered on 03/21/17 05: 49; Admin Dose 500 MG; Start 03/17/17 at 19:00 Metoclopramide HCl (Reglan Liq) 10 mg Q6H GTB Last administered on 03/21/17 16:08; Admin Dose 10 MG; Start 03/18/17 at 16:00 Pantoprazole (Protonix Tab) 40 mg DAILY@06 PO Last administered on 03/21/17 05:49; Admin Dose 40 MG; Start 03/19/17 at 06:00 Carvedilol (Coreg) 6.25 mg BID PO Last administered on 03/20/17 20:53; Admin Dose 6.25 MG; Start 03/20/17 at 21:00 Morphine Sulfate (morphine) 2 mg Q4H PRN IV PAIN LEVEL 4-6 Last administered on 03/20/17 14:48; Admin Dose 2 MG; Start 03/20/17 at 14:30 Lorazepam (Ativan) 0.5 mg TID PRN PEG anxiety Last administered on 03/20/17 21:57; Admin Dose 0.5 MG; Start 03/20/17 at 15:30 SHIN BARNEY MD Mar 21, 2017 19:46
[2017-03-21] MEDS: ATORVASTATIN 20 MG TAB PO SCH (20:31)
[2017-03-22] VITALS (12 sets, daily range): BP systolic 87–100; BP diastolic 50–55; PULSE 103–120; RESP 17–24
[2017-03-22] MEDS: PANTOPRAZOLE (EC) 40 MG TAB PO SCH (06:11)
[2017-03-22] MEDS: METOCLOPRAMIDE (1 MG/ML) 10 ML CUP GTB SCH ×4 (06:11→22:44)
[2017-03-22] MEDS: LEVOFLOXACIN 500 MG TAB PO SCH (06:11)
[2017-03-22] MEDS: VITAMIN A & D 5 GM OINT PACKET TOP SCH ×2 (09:00→22:44)
[2017-03-22] MEDS: MIDODRINE 2.5 MG TAB PO SCH ×3 (09:00→17:55)
[2017-03-22] MEDS: ASPIRIN (EC) 81 MG TAB PO SCH (09:00)
[2017-03-22] MEDS: ALBUTEROL/IPRATROPIUM (NEB) 3 ML AMP HHN SCH ×3 (09:12→20:48)
--- NOTE | 2017-03-22 11:22 | RADRPT ---
PROCEDURE: CHEST X-RAY CLINICAL INDICATION: Shortness of breath TECHNIQUE: [facility] COMPARISON: CHEST 03/21/2017; CHEST 03/15/2017; [facility] CHEST 05/07/2014 FINDINGS: Cardiomegaly, tortuous aorta, dual AICD wires are seen. Surgical clips right axillary region unchang ed. Right middle and lower lobe infiltrate and effusion is unchanged from 03/21/2017 exam, and is a new finding since 03/15/2017 exam. Interstitial markings in the left lung base unchanged. No pneumot horax seen. IMPRESSION: Right middle and lower lobe infiltrate and effusion without improvement RPTAT: [facility] Physician Sussy Date Time Electronically viewed and signed by Amy Childs Physician on 03/22/2017 11:22 MB/
--- NOTE | 2017-03-22 11:37 | CONS ---
Date/Time of Note Date/Time of Note DATE: 03/22/17 TIME: 11:35 Consult Date/Type/Reason Admit Date/Time Mar 08, 2017 at 22:13 Type of Consultation: Pulmonary Ordering Provider: GARY CROSS MD Subjective Patient less distress this morning. Awake alert oriented. Family at bedside. Objective Vital Signs Date Time Temp Pulse Resp B/P Pulse Ox O2 Delivery O2 Flow Rate FiO2 03/22/17 09:13 96 5.0 03/22/17 09:13 113 20 Nasal Cannula 03/22/17 07:50 98.3 100/55 Intake and Output 03/21/17 03/21/17 03/22/17 15:00 23:00 07:00 Intake Total 650 ml Balance 650 ml Exam GENERAL: Chronically ill-appearing lady appears comfortable at rest no acute distress VITAL SIGNS: per chart NECK: Supple. No JVD or lymphadenopathy. CARDIAC EXAM: S1, S2. No added sounds or murmurs. CHEST: Diminished air entry both lung bases. ABDOMEN: Soft, nontender. No guarding or rebound. EXTREMITIES: No cyanosis, clubbing or edema. NEUROLOGIC: Generalized weakness. No focal deficits. Results/Medications Result Diagram: 03/21/1780703/21/17807 Results 24 hrs Chest x-ray Moderate right pleural effusion. Clear left lung. Medications Current Medications Ondansetron HCl/ Dextrose (Zofran Inj/D5W) 54 ml @ 108 mls/hr Q6H PRN IV NAUSEA AND/OR VOMITING Last administered on 03/12/17 12:57; Admin Dose 108 MLS /HR; Start 03/09/17 at 02:30 Aspirin (Halfprin) 81 mg DAILY PO Last administered on 03/22/17 09:00; Admin Dose 81 MG; Start 03/09/17 at 12:30 Atorvastatin Calcium (Lipitor) 20 mg HS PO Last administered on 03/21/17 20: 31; Admin Dose 20 MG; Start 03/09/17 at 21:00 Digoxin (Digoxin) 0.125 mg DAILY@13 PO Last administered on 03/21/17 14:03; Admin Dose 0.125 MG; Start 03/09/17 at 13:00 Lorazepam (Ativan) 0.5 mg Q8H PRN PO ANXIETY; Start 03/09/17 at 12:30 Ondansetron HCl (Zofran Tab) 4 mg Q6H PRN PO NAUSEA AND/OR VOMITING; Start 03/09/17 at 12:30 Acetaminophen/ Hydrocodone Bitart ([place] (5/325)) 1 tab Q6H PRN PO PAIN LEVEL 6 -10 Last administered on 03/15/17 20:53; Admin Dose 1 TAB; Start 03/09/17 at 12:30 Bisacodyl (Dulcolax) 5 mg DAILY PRN PO CONSTIPATION; Start 03/09/17 at 12:30 Enoxaparin Sodium (Lovenox) 40 mg DAILY SC Last administered on 03/21/17 10: 18; Admin Dose 40 MG; Start 03/11/17 at 17:00 Vitamin A/Vitamin D (Vitamin A & D Oint) 1 applic BID TOP Last administered on 03/22/17 09:00; Admin Dose 1 APPLIC; Start 03/15/17 at 14:00 Midodrine (Proamatine) 2.5 mg TID@,,17 PO Last administered on 03/21/17 18:07; Admin Dose 2.5 MG; Start 03/17/17 at 09:00 Levofloxacin (Levaquin) 500 mg DAILY@06 PO Last administered on 03/22/17 06: 11; Admin Dose 500 MG; Start 03/17/17 at 19:00 Metoclopramide HCl (Reglan Liq) 10 mg Q6H GTB Last administered on 03/22/17 10:25; Admin Dose 10 MG; Start 03/18/17 at 16:00 Pantoprazole (Protonix Tab) 40 mg DAILY@06 PO Last administered on 03/22/17 06:11; Admin Dose 40 MG; Start 03/19/17 at 06:00 Carvedilol (Coreg) 6.25 mg BID PO Last administered on 03/22/17 09:00; Admin Dose 6.25 MG; Start 03/20/17 at 21:00 Morphine Sulfate (morphine) 2 mg Q4H PRN IV PAIN LEVEL 4-6 Last administered on 03/20/17 14:48; Admin Dose 2 MG; Start 03/20/17 at 14:30 Lorazepam (Ativan) 0.5 mg TID PRN PEG anxiety Last administered on 03/20/17 21:57; Admin Dose 0.5 MG; Start 03/20/17 at 15:30 Assessment/Plan Chief Complaint/Hosp Course Assessment 1. 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 Bilateral Pleurx catheters in place. Status post G-tube placement. 2. Persistent leukocytosis concerning for underlying infection. 3. Dysphagia with decreased p.o. intake. Status post G-tube placement. 4. Persistent tachycardia likely secondary to underlying malignancy and possible volume depletion. Plan 1. Continue daily Pleurx catheter drainage daily. Patient needs to be upright and Pleurx catheter needs to be flushed for drainage every day. Discussed with the nurse at bedside. 2. Pain control and anxiolytics 3. Continue antibiotics. 4. Continue tube feeding Problems: STAN MAC MD, [facility] Mar 22, 2017 11:37
--- NOTE | 2017-03-22 12:31 | CONS ---
Date/Time of Note Date/Time of Note DATE: 03/22/17 TIME: 12:28 Assessment/Plan Assessment/Plan Chief Complaint/Hosp Course IMPRESSION: 1. Congestive heart failure exacerbation-systolic acute on chronic EF 35%by echo this admit 2. History of cardiomyopathy, decreased left ventricular ejection fraction. 35 % by echo this admit 3. Status post recent automatic implantable cardioverter-defibrillator generator change. 4. Pleural effusions, recurrent, status post PleurX catheter. 5. Metastatic breast carcinoma. 6. Hypoxia, improved. 7. Tachycardia consistent with sinus tachycardia-? due to underlying malignancy +/- volume deplation 8. Hypotension-borderline 9. HYponatremia-slowly improving REcc: -Tele -continue coreg as tolerated -Continue digoxin -Wean off midodrine which is pure afterload in setting of systolic failure -Will continue to hold lasix and follow volume status closely - - Problems: Consultation Date/Type/Reason Admit Date/Time Mar 08, 2017 at 22:13 Initial Consult Date 03/09/2017 Type of Consultation: cardiology Reason for Consultation CHF Referring Provider: GARY CROSS MD Exam/Review of Systems Vital Signs Vitals Vital Signs Date Time Temp Pulse Resp B/P Pulse Ox O2 Delivery O2 Flow Rate FiO2 03/22/17 11:46 98.0 112 20 93/50 94 03/22/17 09:13 5.0 03/22/17 09:13 Nasal Cannula Intake and Output 03/21/17 03/21/17 03/22/17 14:59 22:59 06:59 Intake Total 650 ml Balance 650 ml Exam Review of Systems: CONSTITUTIONAL: No fevers, chills. PULMONARY: No sob CARDIOVASCULAR: No chest pain/palpitations GASTROINTESTINAL: No nausea/vomiting. GENITOURINARY: No hematuria/dysuria. MUSCULOSKELETAL: No myagias/arthalgias. PSYCHIATRIC: The patient denies depression. NEUROLOGIC: No weakness Constitutional: alert, oriented Psych: no complaints Head: normocephalic ENMT: mucosa pink and moist Neck: jvd (8 cm water), supple Respiratory: diminished breath sounds (at bases/B) Cardiovascular: other (tachycardic regular rhythm) Gastrointestinal: non-tender, soft Musculoskeletal: muscle tone (normal) Extremities: edema (none) Neurological: other (BNo focal deficits) Results Result Diagram: 03/21/17 0808 03/22/17 1043 Results 24 hrs Laboratory Tests Test 03/22/17 10:43 Sodium Level 131 L Medications Medications Current Medications Ondansetron HCl/ Dextrose (Zofran Inj/D5W) 54 ml @ 108 mls/hr Q6H PRN IV NAUSEA AND/OR VOMITING Last administered on 03/12/17 12:57; Admin Dose 108 MLS /HR; Start 03/09/17 at 02:30 Aspirin (Halfprin) 81 mg DAILY PO Last administered on 03/22/17 09:00; Admin Dose 81 MG; Start 03/09/17 at 12:30 Atorvastatin Calcium (Lipitor) 20 mg HS PO Last administered on 03/21/17 20: 31; Admin Dose 20 MG; Start 03/09/17 at 21:00 Digoxin (Digoxin) 0.125 mg DAILY@13 PO Last administered on 03/21/17 14:03; Admin Dose 0.125 MG; Start 03/09/17 at 13:00 Lorazepam (Ativan) 0.5 mg Q8H PRN PO ANXIETY; Start 03/09/17 at 12:30 Ondansetron HCl (Zofran Tab) 4 mg Q6H PRN PO NAUSEA AND/OR VOMITING; Start 03/09/17 at 12:30 Acetaminophen/ Hydrocodone Bitart ([place] (5/325)) 1 tab Q6H PRN PO PAIN LEVEL 6 -10 Last administered on 03/15/17 20:53; Admin Dose 1 TAB; Start 03/09/17 at 12:30 Bisacodyl (Dulcolax) 5 mg DAILY PRN PO CONSTIPATION; Start 03/09/17 at 12:30 Enoxaparin Sodium (Lovenox) 40 mg DAILY SC Last administered on 03/21/17 10: 18; Admin Dose 40 MG; Start 03/11/17 at 17:00 Vitamin A/Vitamin D (Vitamin A & D Oint) 1 applic BID TOP Last administered on 03/22/17 09:00; Admin Dose 1 APPLIC; Start 03/15/17 at 14:00 Midodrine (Proamatine) 2.5 mg TID@,13,17 PO Last administered on 03/21/17 18:07; Admin Dose 2.5 MG; Start 03/17/17 at 09:00 Levofloxacin (Levaquin) 500 mg DAILY@06 PO Last administered on 03/22/17 06: 11; Admin Dose 500 MG; Start 03/17/17 at 19:00 Metoclopramide HCl (Reglan Liq) 10 mg Q6H GTB Last administered on 03/22/17 10:25; Admin Dose 10 MG; Start 03/18/17 at 16:00 Pantoprazole (Protonix Tab) 40 mg DAILY@06 PO Last administered on 03/22/17 06:11; Admin Dose 40 MG; Start 03/19/17 at 06:00 Carvedilol (Coreg) 6.25 mg BID PO Last administered on 03/22/17 09:00; Admin Dose 6.25 MG; Start 03/20/17 at 21:00 Morphine Sulfate (morphine) 2 mg Q4H PRN IV PAIN LEVEL 4-6 Last administered on 03/20/17 14:48; Admin Dose 2 MG; Start 03/20/17 at 14:30 Lorazepam (Ativan) 0.5 mg TID PRN PEG anxiety Last administered on 03/20/17 21:57; Admin Dose 0.5 MG; Start 03/20/17 at 15:30 ROXIE VELARDE 22, 2017 12:31
[2017-03-22] MEDS: DIGOXIN 0.125 MG TAB PO SCH (13:51)
[2017-03-22] MEDS: ENOXAPARIN 40 MG/0.4 ML SYG SC SCH (13:56)
--- NOTE | 2017-03-22 14:41 | CONS ---
Date/Time of Note Date/Time of Note DATE: 03/22/17 TIME: 14:40 Assessment/Plan Assessment/Plan Chief Complaint/Hosp Course 1. Recurrent hyponatremia, better bspec542 to 131 2. Urinary tract infection. 3. Congestive heart failure, systolic and chronic EF 35% by echo this admit. 4. History of cardiomyopathy, decreased ejection fraction. 5. Status post AICD generator change. 6. Pleural effusion, recurrent, status post PleurX. 7. Metastatic breast carcinoma. 8. Hypoxia. 9. Sinus tachycardia. Problems: Additional Assessment/Plan 1. Thoracentesis in progress 2. Continue current treatment Consultation Date/Type/Reason Admit Date/Time Mar 08, 2017 at 22:13 Initial Consult Date 03/17/17 Type of Consultation: nephrrology Reason for Consultation Dr Boss Referring Provider: GARY CROSS MD Exam/Review of Systems Vital Signs Vitals Vital Signs Date Time Temp Pulse Resp B/P Pulse Ox O2 Delivery O2 Flow Rate FiO2 03/22/17 13:05 112 22 93 Nasal Cannula 5.0 03/22/17 11:46 98.0 93/50 Intake and Output 03/21/17 03/21/17 03/22/17 15:00 23:00 07:00 Intake Total 650 ml Balance 650 ml Exam Constitutional: alert, oriented Respiratory: clear to auscultation, labored breathing Cardiovascular: regular rate and rhythm Results Result Diagram: 03/21/17 0808 03/22/17 1043 Results 24 hrs Laboratory Tests Test 03/22/17 10:43 Sodium Level 131 L Medications Medications Current Medications Ondansetron HCl/ Dextrose (Zofran Inj/D5W) 54 ml @ 108 mls/hr Q6H PRN IV NAUSEA AND/OR VOMITING Last administered on 03/12/17 12:57; Admin Dose 108 MLS /HR; Start 03/09/17 at 02:30 Aspirin (Halfprin) 81 mg DAILY PO Last administered on 03/22/17 09:00; Admin Dose 81 MG; Start 03/09/17 at 12:30 Atorvastatin Calcium (Lipitor) 20 mg HS PO Last administered on 03/21/17 20: 31; Admin Dose 20 MG; Start 03/09/17 at 21:00 Digoxin (Digoxin) 0.125 mg DAILY@13 PO Last administered on 03/22/17 13:51; Admin Dose 0.125 MG; Start 03/09/17 at 13:00 Lorazepam (Ativan) 0.5 mg Q8H PRN PO ANXIETY; Start 03/09/17 at 12:30 Ondansetron HCl (Zofran Tab) 4 mg Q6H PRN PO NAUSEA AND/OR VOMITING; Start 03/09/17 at 12:30 Acetaminophen/ Hydrocodone Bitart ([place] (5/325)) 1 tab Q6H PRN PO PAIN LEVEL 6 -10 Last administered on 03/15/17 20:53; Admin Dose 1 TAB; Start 03/09/17 at 12:30 Bisacodyl (Dulcolax) 5 mg DAILY PRN PO CONSTIPATION; Start 03/09/17 at 12:30 Enoxaparin Sodium (Lovenox) 40 mg DAILY SC Last administered on 03/22/17 13: 56; Admin Dose 40 MG; Start 03/11/17 at 17:00 Vitamin A/Vitamin D (Vitamin A & D Oint) 1 applic BID TOP Last administered on 03/22/17 09:00; Admin Dose 1 APPLIC; Start 03/15/17 at 14:00 Midodrine (Proamatine) 2.5 mg TID@,,17 PO Last administered on 03/22/17 13:51; Admin Dose 2.5 MG; Start 03/17/17 at 09:00 Levofloxacin (Levaquin) 500 mg DAILY@06 PO Last administered on 03/22/17 06: 11; Admin Dose 500 MG; Start 03/17/17 at 19:00 Metoclopramide HCl (Reglan Liq) 10 mg Q6H GTB Last administered on 03/22/17 10:25; Admin Dose 10 MG; Start 03/18/17 at 16:00 Pantoprazole (Protonix Tab) 40 mg DAILY@06 PO Last administered on 03/22/17 06:11; Admin Dose 40 MG; Start 03/19/17 at 06:00 Carvedilol (Coreg) 6.25 mg BID PO Last administered on 03/22/17 09:00; Admin Dose 6.25 MG; Start 03/20/17 at 21:00 Morphine Sulfate (morphine) 2 mg Q4H PRN IV PAIN LEVEL 4-6 Last administered on 03/20/17 14:48; Admin Dose 2 MG; Start 03/20/17 at 14:30 Lorazepam (Ativan) 0.5 mg TID PRN PEG anxiety Last administered on 03/20/17 21:57; Admin Dose 0.5 MG; Start 03/20/17 at 15:30 GEORGE BISHOP Mar 22, 2017 14:41
--- NOTE | 2017-03-22 14:49 | PN ---
Date/Time of Note Date/Time of Note DATE: 03/22/17 TIME: 14:45 Assessment/Plan VTE Prophylaxis VTE Prophylaxis Intervention: SCD's Lines/Catheters IV Catheter Type (from Nrs): Saline Lock Urinary Cath still in place: No Assessment/Plan Chief Complaint/Hosp Course Assessment/Plan Chief Complaint/Hosp Course Assessment: Dysphagia- s/p EGD with dilation. 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 Chaves Subjective: Course reviewed with nursing staff Patient interviewed and examined All labs, imaging and other results reviewed The patient resting in bed, O2 in place No c/o nausea or abd pain. Family at bedside, spoke to hospice, but decline services at this time. PEG in place, venecia TF well, at goal rate GI will sign off but will be available if needed. PHYSICAL EXAMINATION: GENERAL: Well developed, well nourished, alert & oriented x 3, in no acute distress SKIN: No lesions, no stigmata chronic liver disease, no evidence of bleeding diathesis, PEG in place LYMPHATIC: No palpable lymphadenopathy. HEAD: Normocephalic, atraumatic, no tenderness. EYES: Pupils equal reactive to light and accommodation, full extraocular movements, sclera clear, non-icteric, no discharge. EARS/NOSE AND THROAT: Ears normal, nose normal, oropharynx normal, oral membranes well hydrated without lesions. NECK: Supple, no masses, thyroid normal, JVP within normal limits, carotids normal without bruits. CHEST: Inspection within normal limits. CARDIOVASCULAR: Heart: Regular rate and rhythm, no murmurs, gallops or rubs. Peripheral pulses present within normal limits, no cyanosis, clubbing or edemas. No pulsatile abdominal mass RESPIRATORY: Rales- bilat pleural catheters in place GASTROINTESTINAL AND LIVER: Abdomen: Gastrostomy tube in place. Soft, non tenderness, non-distended, no hernias, no masses, no organomegaly, no ascites, no guarding, no rebound tenderness, normoactive bowel sounds. Rectal: Deferred. EXTREMITIES: No cyanosis clubbing or edema, no evidence of DVT. Problems: Exam/Review of Systems Vital Signs Vitals Vital Signs Date Time Temp Pulse Resp B/P Pulse Ox O2 Delivery O2 Flow Rate FiO2 03/22/17 13:05 112 22 93 Nasal Cannula 5.0 03/22/17 11:46 98.0 93/50 Intake and Output 03/21/17 03/21/17 03/22/17 15:00 23:00 07:00 Intake Total 650 ml Balance 650 ml Results Result Diagram: 03/21/17 0808 03/22/17 1043 Results 24 hrs Laboratory Tests Test 03/22/17 10:43 Sodium Level 131 L Medications Medications Current Medications Ondansetron HCl/ Dextrose (Zofran Inj/D5W) 54 ml @ 108 mls/hr Q6H PRN IV NAUSEA AND/OR VOMITING Last administered on 03/12/17 12:57; Admin Dose 108 MLS /HR; Start 03/09/17 at 02:30 Aspirin (Halfprin) 81 mg DAILY PO Last administered on 03/22/17 09:00; Admin Dose 81 MG; Start 03/09/17 at 12:30 Atorvastatin Calcium (Lipitor) 20 mg HS PO Last administered on 03/21/17 20: 31; Admin Dose 20 MG; Start 03/09/17 at 21:00 Digoxin (Digoxin) 0.125 mg DAILY@13 PO Last administered on 03/22/17 13:51; Admin Dose 0.125 MG; Start 03/09/17 at 13:00 Lorazepam (Ativan) 0.5 mg Q8H PRN PO ANXIETY; Start 03/09/17 at 12:30 Ondansetron HCl (Zofran Tab) 4 mg Q6H PRN PO NAUSEA AND/OR VOMITING; Start 03/09/17 at 12:30 Acetaminophen/ Hydrocodone Bitart ([place] (5/325)) 1 tab Q6H PRN PO PAIN LEVEL 6 -10 Last administered on 03/15/17 20:53; Admin Dose 1 TAB; Start 03/09/17 at 12:30 Bisacodyl (Dulcolax) 5 mg DAILY PRN PO CONSTIPATION; Start 03/09/17 at 12:30 Enoxaparin Sodium (Lovenox) 40 mg DAILY SC Last administered on 03/22/17 13: 56; Admin Dose 40 MG; Start 03/11/17 at 17:00 Vitamin A/Vitamin D (Vitamin A & D Oint) 1 applic BID TOP Last administered on 03/22/17 09:00; Admin Dose 1 APPLIC; Start 03/15/17 at 14:00 Midodrine (Proamatine) 2.5 mg TID@,, PO Last administered on 03/22/17 13:51; Admin Dose 2.5 MG; Start 03/17/17 at 09:00 Levofloxacin (Levaquin) 500 mg DAILY@06 PO Last administered on 03/22/17 06: 11; Admin Dose 500 MG; Start 03/17/17 at 19:00 Metoclopramide HCl (Reglan Liq) 10 mg Q6H GTB Last administered on 03/22/17 10:25; Admin Dose 10 MG; Start 03/18/17 at 16:00 Pantoprazole (Protonix Tab) 40 mg DAILY@06 PO Last administered on 03/22/17 06:11; Admin Dose 40 MG; Start 03/19/17 at 06:00 Carvedilol (Coreg) 6.25 mg BID PO Last administered on 03/22/17 09:00; Admin Dose 6.25 MG; Start 03/20/17 at 21:00 Morphine Sulfate (morphine) 2 mg Q4H PRN IV PAIN LEVEL 4-6 Last administered on 03/20/17 14:48; Admin Dose 2 MG; Start 03/20/17 at 14:30 Lorazepam (Ativan) 0.5 mg TID PRN PEG anxiety Last administered on 03/20/17 21:57; Admin Dose 0.5 MG; Start 03/20/17 at 15:30 DINA SORIANO Mar 22, 2017 14:49
--- NOTE | 2017-03-22 15:35 | PN ---
Date/Time of Note Date/Time of Note DATE: 03/22/17 TIME: 15:33 Assessment/Plan VTE Prophylaxis VTE Prophylaxis Intervention: LMWH, SCD's Lines/Catheters IV Catheter Type (from Nrs): Saline Lock Urinary Cath still in place: No Assessment/Plan Chief Complaint/Hosp Course s: still sob o: General: patient resting, mild distress due to palpitations Head: Normocephalic atraumatic Eyes: EOMI, pupils reactive to light Neck: Supple, nontender, midline Respiratory: crackles at bases bilaterally Cardiovascular: irregular rhythm, tachycardia, no obvious murmurs Gastrointestinal: non-tender to palpation, bowel sounds heard. Neurological: Moves all extremities spontaneously Patient is a 81-year-old female who recently was discharged 2 days prior to previous admission, however patient's long term facility unit on oxygen and patient went into acute respiratory failure, and was sent to local ICU, transferred for insurance reasons. Assessment/Plan #palpitations -persistent -cardiology recs appreciated -multifactorial issues, clogged R catheter may be part of the problem #. Acute on chronic respiratory failure secondary pleural effusions - abx stopped, unlikely PNA source, patient doing well - Will continue on NC and wean as tolerated to maintain O2 >90% - Pulmonology consulted and recommendations appreciated. Continue on daily pleurx drainage at night, will need to unclog R pleurx, ordered per radiology - Bronchodilators #. Elevated troponin -mild, cardiology aware, no intervention -no chest pain #. Dysphagia - GI reconsulted and recommendations appreciated - PEG tubed and tolerating tube feeds well. Pleasure feeds as well as tolerated -scheduled reglan #. Bilateral pleural effusions, malignant per path report in jan[place], [place]. - Pulmonology on board. Will need daily to q 3day pleurx drainage. - Continue on NC and wean as tolerating to keep saturations >90% #. Tachycardia - Cardiology on board and consultation appreciated - On Digoxin and coreg #. Hyponatremia - improved - Nephrology on board recs appreciated - No acute symptoms - monitor #. Cardiomyopathy, congestive heart failure, acute on chronic ejection fraction 45% - Cardiology on board and recommendations appreciated. - Continue statin, asa, coreg as tolerated - ICD battery change done #. 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 Merlos, oncology, outpatient. States patient is stage IV and not appropriate to continue chemotherapy at this time. Recommending Palliative care at this time. - Spoke with Family and they are not satisfied with plan and would like to continue to pursue treatment once patient discharged - Dr. Ray offered secondary opinion and agrees with Dr. Merlos in that patient is too debilitated to undergo chemotherapy #. Anemia of chronic disease - currently stable - will continue monitoring #. Disposition - Monitor sodium levels - SNF placement. Family would like [facility] - patient's family undecided on hospice, however unlikely after speaking with son, as they would like continued care in the form of lab draws/xrays/ supportive care instead of total comfort care. -stabilize enough so that she will not be an automatic bounce back from SNF Problems: Exam/Review of Systems Vital Signs Vitals Vital Signs Date Time Temp Pulse Resp B/P Pulse Ox O2 Delivery O2 Flow Rate FiO2 03/22/17 13:05 112 22 93 Nasal Cannula 5.0 03/22/17 11:46 98.0 93/50 Intake and Output 03/21/17 03/21/17 03/22/17 14:59 22:59 06:59 Intake Total 650 ml Balance 650 ml Results Result Diagram: 03/21/17 0808 03/22/17 1043 Results 24 hrs Laboratory Tests Test 03/22/17 10:43 Sodium Level 131 L Medications Medications Current Medications Ondansetron HCl/ Dextrose (Zofran Inj/D5W) 54 ml @ 108 mls/hr Q6H PRN IV NAUSEA AND/OR VOMITING Last administered on 03/12/17 12:57; Admin Dose 108 MLS /HR; Start 03/09/17 at 02:30 Aspirin (Halfprin) 81 mg DAILY PO Last administered on 03/22/17 09:00; Admin Dose 81 MG; Start 03/09/17 at 12:30 Atorvastatin Calcium (Lipitor) 20 mg HS PO Last administered on 03/21/17 20: 31; Admin Dose 20 MG; Start 03/09/17 at 21:00 Digoxin (Digoxin) 0.125 mg DAILY@13 PO Last administered on 03/22/17 13:51; Admin Dose 0.125 MG; Start 03/09/17 at 13:00 Lorazepam (Ativan) 0.5 mg Q8H PRN PO ANXIETY; Start 03/09/17 at 12:30 Ondansetron HCl (Zofran Tab) 4 mg Q6H PRN PO NAUSEA AND/OR VOMITING; Start 03/09/17 at 12:30 Acetaminophen/ Hydrocodone Bitart ([place] (5/325)) 1 tab Q6H PRN PO PAIN LEVEL 6 -10 Last administered on 03/15/17 20:53; Admin Dose 1 TAB; Start 03/09/17 at 12:30 Bisacodyl (Dulcolax) 5 mg DAILY PRN PO CONSTIPATION; Start 03/09/17 at 12:30 Enoxaparin Sodium (Lovenox) 40 mg DAILY SC Last administered on 03/22/17 13: 56; Admin Dose 40 MG; Start 03/11/17 at 17:00 Vitamin A/Vitamin D (Vitamin A & D Oint) 1 applic BID TOP Last administered on 03/22/17 09:00; Admin Dose 1 APPLIC; Start 03/15/17 at 14:00 Midodrine (Proamatine) 2.5 mg TID@,, PO Last administered on 03/22/17 13:51; Admin Dose 2.5 MG; Start 03/17/17 at 09:00 Levofloxacin (Levaquin) 500 mg DAILY@06 PO Last administered on 03/22/17 06: 11; Admin Dose 500 MG; Start 03/17/17 at 19:00 Metoclopramide HCl (Reglan Liq) 10 mg Q6H GTB Last administered on 03/22/17 10:25; Admin Dose 10 MG; Start 03/18/17 at 16:00 Pantoprazole (Protonix Tab) 40 mg DAILY@06 PO Last administered on 03/22/17 06:11; Admin Dose 40 MG; Start 03/19/17 at 06:00 Carvedilol (Coreg) 6.25 mg BID PO Last administered on 03/22/17 09:00; Admin Dose 6.25 MG; Start 03/20/17 at 21:00 Morphine Sulfate (morphine) 2 mg Q4H PRN IV PAIN LEVEL 4-6 Last administered on 03/20/17 14:48; Admin Dose 2 MG; Start 03/20/17 at 14:30 Lorazepam (Ativan) 0.5 mg TID PRN PEG anxiety Last administered on 03/20/17 21:57; Admin Dose 0.5 MG; Start 03/20/17 at 15:30 DIMA COVARRUBIAS Mar 22, 2017 15:35
[2017-03-22] MEDS: ATORVASTATIN 20 MG TAB PO SCH (22:43)
[2017-03-23] VITALS (11 sets, daily range): BP systolic 89–167; BP diastolic 50–72; PULSE 103–118; RESP 17–20
--- NOTE | 2017-03-23 00:03 | RADRPT ---
PROCEDURE: CT Chest without contrast. CLINICAL INDICATION: Pleural drain placement. TECHNIQUE: CT scan of the chest without contrast was performed on a multidetector high-resolution CT scanner. Coronal and sagittal reformatted images were obtained from the axial source images. The total exam CTDI equals 9.54 mGy and the total exam DLP equals 356.35 mGy-cm. One or more of the following dose reduction techniques were utilized: 1.) Automated exposure control 2.) Adjustment of the mA +/- kV according to patient's size 3.) Use of iterative reconstruction technique. COMPARISON: CTA chest dated 02/25/2017. FINDINGS: Large bilateral pleural effusions with loculation components, right greater than left. These are inc reased in size over interval since CTA chest dated 02/25/2017. New narrow caliber pleural drain in place at the posterior midaxillary right lung base. The tip is l ocated within the anterior medial right mid lung, outside the region of the dominant pleural effusio n. If tip position is desired within the dominant right pleural effusion the narrow caliber pleural drain may be withdrawn 10 cm, with re-imaging. Complete versus near-complete collapse of the right lower lobe. Compressive atelectasis in the right upper lobe and middle lobe. There is pleural thickening versus loculated pleural fluid over the rig ht upper lobe and right middle lobe. Partial collapse of the left lower lobe with loculated pleural effusion with in the mid to superior left major fissure. A loculated pleural fluid collection is also seen at the posterior aspect of the left upper lobe, and otherwise, the left upper lobe and lingula appear substantially inflated. Bulky adenopathy likely present in the mediastinum at the subcarinal region, suboptimally visualized secondary to absence of IV contrast. Nevertheless, this appears volumetrically increased in size si nce 02/25/2017, previously measuring about 35 x 28 mm in the axial plane, now measuring about 37 x 3 2 mm. Remaining scattered middle mediastinal adenopathy is similar in appearance to examination date d 02/25/2017. The vascular structures of the mediastinum are normal in course and caliber. Aortic vascular calcif ications and coronary artery calcifications are mild. The heart size is enlarged, with trace perica rdial fluid, similar in appearance to prior examination. There is a new right mid axillary chest wall mass, measuring about 76 mm in the craniocaudad dimensi on by 79 mm in AP dimension by 36 mm in the transverse dimension. Left axillary and chest wall adeno des is again seen, volumetrically increased over interval, with largest lymph node at the midaxill arvin left chest wall now measuring 25 x 22 x 16 mm, and this previously measured about 20 x 19 x 15 m m. Imaging obtained through the upper abdomen reveals a partially visualized 3 cm likely left renal cys t. Remaining partially visualized upper abdominal viscera is unremarkable. Extensive mixed lytic and sclerotic metastatic deposits again seen throughout the osseous structures of the thorax, similar in appearance to examination dated 02/25/2017. IMPRESSION: 1. Increased bilateral large loculated pleural effusions, right greater than left. 2. Complete versus near-complete collapse of the right lower lobe and partial collapse of the left l ower lobe. 3. New narrow caliber pleural drain is seen in the right lung base, with tip extending to the anteri or medial mid chest. 4. If drained tip position is desired within the dominant right lung pleural fluid collection consid er withdrawing same about 10 cm and re-imaging. 5. There is a new large mass at the midaxillary mid right chest wall, with increased axillary and ch est wall adenopathy on the left and increased subcarinal mediastinal adenopathy since prior examinat ion dated 02/25/2017. RPTAT: [facility] Physician Jam Date Time Electronically viewed and signed by Physician Jam on 03/23/2017 00:02 RS/
[2017-03-23] MEDS: METOCLOPRAMIDE (1 MG/ML) 10 ML CUP GTB SCH ×4 (04:24→21:35)
[2017-03-23] MEDS: LORAZEPAM 0.5 MG TAB PEG PRN ×2 (04:24→22:03)
[2017-03-23] MEDS: PANTOPRAZOLE (EC) 40 MG TAB PO SCH (06:00)
[2017-03-23] MEDS: LEVOFLOXACIN 500 MG TAB PO SCH (06:00)
[2017-03-23] MEDS: ALBUTEROL/IPRATROPIUM (NEB) 3 ML AMP HHN SCH ×3 (08:00→20:00)
[2017-03-23] MEDS: ASPIRIN (EC) 81 MG TAB PO SCH (08:54)
[2017-03-23] MEDS: VITAMIN A & D 5 GM OINT PACKET TOP SCH ×2 (08:54→21:36)
[2017-03-23] MEDS: MIDODRINE 2.5 MG TAB PO SCH ×4 (09:00→18:18)
[2017-03-23] MEDS: ENOXAPARIN 40 MG/0.4 ML SYG SC SCH (09:04)
--- NOTE | 2017-03-23 11:09 | CONS ---
Date/Time of Note Date/Time of Note DATE: 03/23/17 TIME: 11:07 Consult Date/Type/Reason Admit Date/Time Mar 08, 2017 at 22:13 Type of Consultation: Pulmonary Ordering Provider: GARY CROSS MD Subjective Patient awake alert and oriented. Comfortable less respiratory distress. Objective Vital Signs Date Time Temp Pulse Resp B/P Pulse Ox O2 Delivery O2 Flow Rate FiO2 03/23/17 08:15 117 03/23/17 07:21 97.8 20 97/55 92 03/22/17 20:49 Nasal Cannula 5.0 Intake and Output 03/22/17 03/22/17 03/23/17 15:00 23:00 07:00 Intake Total 650 ml 700 ml 720 ml Output Total 400 ml Balance 250 ml 700 ml 720 ml Exam GENERAL: Currently ill-appearing lady comfortable at rest no acute distress VITAL SIGNS: per chart NECK: Supple. No JVD or lymphadenopathy. CARDIAC EXAM: S1, S2. No added sounds or murmurs. CHEST: Diminished air entry bilaterally with rales right base. ABDOMEN: Soft, nontender. No guarding or rebound. EXTREMITIES: No cyanosis, clubbing or edema. NEUROLOGIC: Generalized weakness. No focal deficits. Results/Medications Result Diagram: 03/21/17 0808 03/22/[address] chest Bilateral loculated pleural effusions Pleurx catheter in place right Pleurx catheter does not appear to be in fluid collection. Medications Current Medications Ondansetron HCl/ Dextrose (Zofran Inj/D5W) 54 ml @ 108 mls/hr Q6H PRN IV NAUSEA AND/OR VOMITING Last administered on 03/12/17 12:57; Admin Dose 108 MLS /HR; Start 03/09/17 at 02:30 Aspirin (Halfprin) 81 mg DAILY PO Last administered on 03/23/17 08:54; Admin Dose 81 MG; Start 03/09/17 at 12:30 Atorvastatin Calcium (Lipitor) 20 mg HS PO Last administered on 03/22/17 22: 43; Admin Dose 20 MG; Start 03/09/17 at 21:00 Digoxin (Digoxin) 0.125 mg DAILY@13 PO Last administered on 03/22/17 13:51; Admin Dose 0.125 MG; Start 03/09/17 at 13:00 Lorazepam (Ativan) 0.5 mg Q8H PRN PO ANXIETY; Start 03/09/17 at 12:30 Ondansetron HCl (Zofran Tab) 4 mg Q6H PRN PO NAUSEA AND/OR VOMITING; Start 03/09/17 at 12:30 Acetaminophen/ Hydrocodone Bitart ([place] (5/325)) 1 tab Q6H PRN PO PAIN LEVEL 6 -10 Last administered on 03/15/17 20:53; Admin Dose 1 TAB; Start 03/09/17 at 12:30 Bisacodyl (Dulcolax) 5 mg DAILY PRN PO CONSTIPATION; Start 03/09/17 at 12:30 Enoxaparin Sodium (Lovenox) 40 mg DAILY SC Last administered on 03/23/17 09: 04; Admin Dose 40 MG; Start 03/11/17 at 17:00 Vitamin A/Vitamin D (Vitamin A & D Oint) 1 applic BID TOP Last administered on 03/23/17 08:54; Admin Dose 1 APPLIC; Start 03/15/17 at 14:00 Midodrine (Proamatine) 2.5 mg TID@,,17 PO Last administered on 03/23/17 09:00; Admin Dose 2.5 MG; Start 03/17/17 at 09:00 Levofloxacin (Levaquin) 500 mg DAILY@06 PO Last administered on 03/23/17 06: 00; Admin Dose 500 MG; Start 03/17/17 at 19:00 Metoclopramide HCl (Reglan Liq) 10 mg Q6H GTB Last administered on 03/23/17 09:05; Admin Dose 10 MG; Start 03/18/17 at 16:00 Pantoprazole (Protonix Tab) 40 mg DAILY@06 PO Last administered on 03/23/17 06:00; Admin Dose 40 MG; Start 03/19/17 at 06:00 Carvedilol (Coreg) 6.25 mg BID PO Last administered on 03/23/17 08:55; Admin Dose 6.25 MG; Start 03/20/17 at 21:00 Morphine Sulfate (morphine) 2 mg Q4H PRN IV PAIN LEVEL 4-6 Last administered on 03/20/17 14:48; Admin Dose 2 MG; Start 03/20/17 at 14:30 Lorazepam (Ativan) 0.5 mg TID PRN PEG anxiety Last administered on 03/23/17t 04:24; Admin Dose 0.5 MG; Start 03/20/17 at 15:30 Assessment/Plan Chief Complaint/Hosp Course Assessment 1. 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 Bilateral Pleurx catheters in place. Will need adjustment of right Pleurx catheter to adequately drain pleural effusion. 2. Persistent leukocytosis concerning for underlying infection. 3. Dysphagia with decreased p.o. intake. Status post G-tube placement. 4. Persistent tachycardia likely secondary to underlying malignancy and possible volume depletion. Plan 1. Continue daily Pleurx catheter drainage daily. Patient needs to be upright and Pleurx catheter needs to be flushed for drainage every day. Discussed with the nurse at bedside. Radiology to adjust Pleurx catheter. 2. Pain control and anxiolytics 3. Continue antibiotics. 4. Continue tube feeding Because with patient's sons at bedside at length. Problems: STAN MAC MD, [facility] Mar 23, 2017 11:09
--- NOTE | 2017-03-23 12:06 | PN ---
Date/Time of Note Date/Time of Note DATE: 03/23/17 TIME: 12:04 Assessment/Plan VTE Prophylaxis VTE Prophylaxis Intervention: SCD's Lines/Catheters IV Catheter Type (from Nrs): Saline Lock Urinary Cath still in place: No Assessment/Plan Chief Complaint/Hosp Course s: 03.22: still sob 03.23: sleeping, less sob o: General: patient resting, mild distress due to palpitations Head: Normocephalic atraumatic Eyes: EOMI, pupils reactive to light Neck: Supple, nontender, midline Respiratory: crackles at bases bilaterally Cardiovascular: irregular rhythm, tachycardia, no obvious murmurs Gastrointestinal: non-tender to palpation, bowel sounds heard. Neurological: Moves all extremities spontaneously Patient is a 81-year-old female who recently was discharged 2 days prior to previous admission, however patient's [facility] facility unit on oxygen and patient went into acute respiratory failure, and was sent to local ICU, transferred for insurance reasons. Assessment/Plan #palpitations -persistent -cardiology recs appreciated -multifactorial issues #. Acute on chronic respiratory failure secondary pleural effusions - abx stopped, unlikely PNA source, patient doing well - Will continue on NC and wean as tolerated to maintain O2 >90% - Pulmonology consulted and recommendations appreciated. Continue on daily pleurx drainage at night, will need to unclog R pleurx, ordered per radiology - Bronchodilators #. Elevated troponin -mild, cardiology aware, no intervention -no chest pain #[place] UTI -patient and patient's family did not want to treat with antifungal at this time -monitor for now as patient is asymptomatic #. Dysphagia - GI reconsulted and recommendations appreciated - PEG tubed and tolerating tube feeds well. Pleasure feeds as well as tolerated -scheduled reglan #. Bilateral pleural effusions, malignant per path report in [place], [place]. - Pulmonology on board. Will need daily to q 3day pleurx drainage. - Continue on NC and wean as tolerating to keep saturations >90% #. Tachycardia - Cardiology on board and consultation appreciated - On Digoxin and coreg #. Hyponatremia - improved - Nephrology on board recs appreciated - No acute symptoms - monitor #. Cardiomyopathy, congestive heart failure, acute on chronic ejection fraction 45% - Cardiology on board and recommendations appreciated. - Continue statin, asa, coreg as tolerated - ICD battery change done #. 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 Merlos, oncology, outpatient. States patient is stage IV and not appropriate to continue chemotherapy at this time. Recommending Palliative care at this time. - Spoke with Family and they are not satisfied with plan and would like to continue to pursue treatment once patient discharged - Dr. Ray offered secondary opinion and agrees with Dr. Merlos in that patient is too debilitated to undergo chemotherapy #. Anemia of chronic disease - currently stable - will continue monitoring #. Disposition - Monitor sodium levels - SNF placement. Family would like [facility] - patient's family undecided on hospice, however unlikely after speaking with son, as they would like continued care in the form of lab draws/xrays/ supportive care instead of total comfort care. -stabilize enough so that she will not be an automatic bounce back from SNF Problems: Exam/Review of Systems Vital Signs Vitals Vital Signs Date Time Temp Pulse Resp B/P Pulse Ox O2 Delivery O2 Flow Rate FiO2 03/23/17 11:26 97.4 107 20 91/55 95 03/22/17 20:49 Nasal Cannula 5.0 Intake and Output 03/22/17 03/22/17 03/23/17 15:00 23:00 07:00 Intake Total 650 ml 700 ml 720 ml Output Total 400 ml Balance 250 ml 700 ml 720 ml Results Result Diagram: 03/21/17 0808 03/22/17 1043 Medications Medications Current Medications Ondansetron HCl/ Dextrose (Zofran Inj/D5W) 54 ml @ 108 mls/hr Q6H PRN IV NAUSEA AND/OR VOMITING Last administered on 03/12/17 12:57; Admin Dose 108 MLS /HR; Start 03/09/17 at 02:30 Aspirin (Halfprin) 81 mg DAILY PO Last administered on 03/23/17 08:54; Admin Dose 81 MG; Start 03/09/17 at 12:30 Atorvastatin Calcium (Lipitor) 20 mg HS PO Last administered on 03/22/17 22: 43; Admin Dose 20 MG; Start 03/09/17 at 21:00 Digoxin (Digoxin) 0.125 mg DAILY@13 PO Last administered on 03/22/17 13:51; Admin Dose 0.125 MG; Start 03/09/17 at 13:00 Lorazepam (Ativan) 0.5 mg Q8H PRN PO ANXIETY; Start 03/09/17 at 12:30 Ondansetron HCl (Zofran Tab) 4 mg Q6H PRN PO NAUSEA AND/OR VOMITING; Start 03/09/17 at 12:30 Acetaminophen/ Hydrocodone Bitart ([place] (5/325)) 1 tab Q6H PRN PO PAIN LEVEL 6 -10 Last administered on 03/15/17 20:53; Admin Dose 1 TAB; Start 03/09/17 at 12:30 Bisacodyl (Dulcolax) 5 mg DAILY PRN PO CONSTIPATION; Start 03/09/17 at 12:30 Enoxaparin Sodium (Lovenox) 40 mg DAILY SC Last administered on 03/23/17 09: 04; Admin Dose 40 MG; Start 03/11/17 at 17:00 Vitamin A/Vitamin D (Vitamin A & D Oint) 1 applic BID TOP Last administered on 03/23/17 08:54; Admin Dose 1 APPLIC; Start 03/15/17 at 14:00 Midodrine (Proamatine) 2.5 mg TID@,,17 PO Last administered on 03/23/17 09:00; Admin Dose 2.5 MG; Start 03/17/17 at 09:00 Levofloxacin (Levaquin) 500 mg DAILY@06 PO Last administered on 03/23/17 06: 00; Admin Dose 500 MG; Start 03/17/17 at 19:00 Metoclopramide HCl (Reglan Liq) 10 mg Q6H GTB Last administered on 03/23/17 09:05; Admin Dose 10 MG; Start 03/18/17 at 16:00 Pantoprazole (Protonix Tab) 40 mg DAILY@06 PO Last administered on 03/23/17 06:00; Admin Dose 40 MG; Start 03/19/17 at 06:00 Carvedilol (Coreg) 6.25 mg BID PO Last administered on 03/23/17 08:55; Admin Dose 6.25 MG; Start 03/20/17 at 21:00 Morphine Sulfate (morphine) 2 mg Q4H PRN IV PAIN LEVEL 4-6 Last administered on 03/20/17 14:48; Admin Dose 2 MG; Start 03/20/17 at 14:30 Lorazepam (Ativan) 0.5 mg TID PRN PEG anxiety Last administered on 03/23/17t 04:24; Admin Dose 0.5 MG; Start 03/20/17 at 15:30 DIMA COVARRUBIAS Mar 23, 2017 12:06
--- NOTE | 2017-03-23 13:21 | CONS ---
Date/Time of Note Date/Time of Note DATE: 03/23/17 TIME: 13:19 Assessment/Plan Assessment/Plan Additional Assessment/Plan 1. Congestive heart failure exacerbation-systolic acute on chronic EF 35%by echo this admit - con't to keep euvolemic. NO change. 2. History of cardiomyopathy, decreased left ventricular ejection fraction. 35 % by echo this admit - BiV ICD in place. 3. Status post recent automatic implantable cardioverter-defibrillator generator change. 4. Pleural effusions, recurrent, status post PleurX catheter- still with fluid retention, malignant. POOR prognosis. 5. Metastatic breast carcinoma- Stage IV, onc follows. 6. Hypoxia, improved. 7. Tachycardia consistent with sinus tachycardia- treat underlined dz. 8. Hypotension-borderline 9. HYponatremia-slowly improving with IVF Consultation Date/Type/Reason Admit Date/Time Mar 08, 2017 at 22:13 Type of Consultation: Pulmonary Referring Provider: GARY CROSS MD 24 HR Interval Summary Free Text/Dictation No acute events - ill appearing. ROS: No fever, no chills, no nausea, no vomiting, no diarrhea/constipation No recent weight changes No chest pain, no PND, no orthopnea + SOB No dizziness, blurred vision No thirst, no heat or cold intolerance Exam/Review of Systems Vital Signs Vitals Vital Signs Date Time Temp Pulse Resp B/P Pulse Ox O2 Delivery O2 Flow Rate FiO2 03/23/17 12:09 111 03/23/17 11:26 97.4 20 91/55 95 03/22/17 20:49 Nasal Cannula 5.0 Intake and Output 03/22/17 03/22/17 03/23/17 15:00 23:00 07:00 Intake Total 650 ml 700 ml 720 ml Output Total 400 ml Balance 250 ml 700 ml 720 ml Exam General: WN/WD/NAD, AOx 1-2 HEENT: Unicetric/atraumatic/EOMI (follow commands) NECK: JVD elevated, no thyromegaly Lymph: no lymphadenopathy HEART: regular with no S3, II/ systolic murmur at apex, BIV site well LUNGS: Coarse sounds ABD: soft, NT, ND, +BS : Intact Neuro: non focal SKIN: chronic changes EXT: trace edema Results Result Diagram: 03/21/17 0808 03/22/17 1043 Medications Medications Current Medications Ondansetron HCl/ Dextrose (Zofran Inj/D5W) 54 ml @ 108 mls/hr Q6H PRN IV NAUSEA AND/OR VOMITING Last administered on 03/12/17 12:57; Admin Dose 108 MLS /HR; Start 03/09/17 at 02:30 Aspirin (Halfprin) 81 mg DAILY PO Last administered on 03/23/17 08:54; Admin Dose 81 MG; Start 03/09/17 at 12:30 Atorvastatin Calcium (Lipitor) 20 mg HS PO Last administered on 03/22/17 22: 43; Admin Dose 20 MG; Start 03/09/17 at 21:00 Digoxin (Digoxin) 0.125 mg DAILY@13 PO Last administered on 03/22/17 13:51; Admin Dose 0.125 MG; Start 03/09/17 at 13:00 Lorazepam (Ativan) 0.5 mg Q8H PRN PO ANXIETY; Start 03/09/17 at 12:30 Ondansetron HCl (Zofran Tab) 4 mg Q6H PRN PO NAUSEA AND/OR VOMITING; Start 03/09/17 at 12:30 Acetaminophen/ Hydrocodone Bitart ([place] (5/325)) 1 tab Q6H PRN PO PAIN LEVEL 6 -10 Last administered on 03/15/17 20:53; Admin Dose 1 TAB; Start 03/09/17 at 12:30 Bisacodyl (Dulcolax) 5 mg DAILY PRN PO CONSTIPATION; Start 03/09/17 at 12:30 Enoxaparin Sodium (Lovenox) 40 mg DAILY SC Last administered on 03/23/17 09: 04; Admin Dose 40 MG; Start 03/11/17 at 17:00 Vitamin A/Vitamin D (Vitamin A & D Oint) 1 applic BID TOP Last administered on 03/23/17 08:54; Admin Dose 1 APPLIC; Start 03/15/17 at 14:00 Midodrine (Proamatine) 2.5 mg TID@,, PO Last administered on 03/23/17 09:00; Admin Dose 2.5 MG; Start 03/17/17 at 09:00 Levofloxacin (Levaquin) 500 mg DAILY@06 PO Last administered on 03/23/17 06: 00; Admin Dose 500 MG; Start 03/17/17 at 19:00 Metoclopramide HCl (Reglan Liq) 10 mg Q6H GTB Last administered on 03/23/17 09:05; Admin Dose 10 MG; Start 03/18/17 at 16:00 Pantoprazole (Protonix Tab) 40 mg DAILY@06 PO Last administered on 03/23/17 06:00; Admin Dose 40 MG; Start 03/19/17 at 06:00 Carvedilol (Coreg) 6.25 mg BID PO Last administered on 03/23/17 08:55; Admin Dose 6.25 MG; Start 03/20/17 at 21:00 Morphine Sulfate (morphine) 2 mg Q4H PRN IV PAIN LEVEL 4-6 Last administered on 03/20/17 14:48; Admin Dose 2 MG; Start 03/20/17 at 14:30 Lorazepam (Ativan) 0.5 mg TID PRN PEG anxiety Last administered on 03/23/17 04:24; Admin Dose 0.5 MG; Start 03/20/17 at 15:30 STEFANY BOYCE MD Mar 23, 2017 13:20
--- NOTE | 2017-03-23 13:35 | CONS ---
Date/Time of Note Date/Time of Note DATE: 03/23/17 TIME: 13:29 Assessment/Plan Assessment/Plan Chief Complaint/Hosp Course 1. Recurrent hyponatremia, better from 122 to 131 2. Urinary tract infection. 3. Congestive heart failure, systolic and chronic EF 35% by echo this admit. 4. History of cardiomyopathy, decreased ejection fraction. 5. Status post AICD generator change. 6. Pleural effusion, recurrent, status post PleurX. 7. Metastatic breast carcinoma. 8. Hypoxia. 9. Sinus tachycardia. Problems: Additional Assessment/Plan 1. Optimization of kidney function Consultation Date/Type/Reason Admit Date/Time Mar 08, 2017 at 22:13 Initial Consult Date 03/17/17 Type of Consultation: nephrology Reason for Consultation Dr Boss Referring Provider: GARY CROSS MD 24 HR Interval Summary Constitutional: no complaints Exam/Review of Systems Vital Signs Vitals Vital Signs Date Time Temp Pulse Resp B/P Pulse Ox O2 Delivery O2 Flow Rate FiO2 03/23/17 12:09 111 03/23/17 11:26 97.4 20 91/55 95 03/22/17 20:49 Nasal Cannula 5.0 Intake and Output 03/22/17 03/22/17 03/23/17 15:00 23:00 07:00 Intake Total 650 ml 700 ml 720 ml Output Total 400 ml Balance 250 ml 700 ml 720 ml Exam Constitutional: alert, oriented Respiratory: diminished breath sounds Cardiovascular: regular rate and rhythm Results Result Diagram: 03/21/17 0808 03/22/17 1043 Medications Medications Current Medications Ondansetron HCl/ Dextrose (Zofran Inj/D5W) 54 ml @ 108 mls/hr Q6H PRN IV NAUSEA AND/OR VOMITING Last administered on 03/12/17 12:57; Admin Dose 108 MLS /HR; Start 03/09/17 at 02:30 Aspirin (Halfprin) 81 mg DAILY PO Last administered on 03/23/17 08:54; Admin Dose 81 MG; Start 03/09/17 at 12:30 Atorvastatin Calcium (Lipitor) 20 mg HS PO Last administered on 03/22/17 22: 43; Admin Dose 20 MG; Start 03/09/17 at 21:00 Digoxin (Digoxin) 0.125 mg DAILY@13 PO Last administered on 03/22/17 13:51; Admin Dose 0.125 MG; Start 03/09/17 at 13:00 Lorazepam (Ativan) 0.5 mg Q8H PRN PO ANXIETY; Start 03/09/17 at 12:30 Ondansetron HCl (Zofran Tab) 4 mg Q6H PRN PO NAUSEA AND/OR VOMITING; Start 03/09/17 at 12:30 Acetaminophen/ Hydrocodone Bitart ([place] (5/325)) 1 tab Q6H PRN PO PAIN LEVEL 6 -10 Last administered on 03/15/17 20:53; Admin Dose 1 TAB; Start 03/09/17 at 12:30 Bisacodyl (Dulcolax) 5 mg DAILY PRN PO CONSTIPATION; Start 03/09/17 at 12:30 Enoxaparin Sodium (Lovenox) 40 mg DAILY SC Last administered on 03/23/17 09: 04; Admin Dose 40 MG; Start 03/11/17 at 17:00 Vitamin A/Vitamin D (Vitamin A & D Oint) 1 applic BID TOP Last administered on 03/23/17 08:54; Admin Dose 1 APPLIC; Start 03/15/17 at 14:00 Midodrine (Proamatine) 2.5 mg TID@,,17 PO Last administered on 03/23/17 09:00; Admin Dose 2.5 MG; Start 03/17/17 at 09:00 Levofloxacin (Levaquin) 500 mg DAILY@06 PO Last administered on 03/23/17 06: 00; Admin Dose 500 MG; Start 03/17/17 at 19:00 Metoclopramide HCl (Reglan Liq) 10 mg Q6H GTB Last administered on 03/23/17 09:05; Admin Dose 10 MG; Start 03/18/17 at 16:00 Pantoprazole (Protonix Tab) 40 mg DAILY@06 PO Last administered on 03/23/17 06:00; Admin Dose 40 MG; Start 03/19/17 at 06:00 Carvedilol (Coreg) 6.25 mg BID PO Last administered on 03/23/17 08:55; Admin Dose 6.25 MG; Start 03/20/17 at 21:00 Morphine Sulfate (morphine) 2 mg Q4H PRN IV PAIN LEVEL 4-6 Last administered on 11/20/17at 14:48; Admin Dose 2 MG; Start 03/20/17 at 14:30 Lorazepam (Ativan) 0.5 mg TID PRN PEG anxiety Last administered on 03/23/17t 04:24; Admin Dose 0.5 MG; Start 03/20/17 at 15:30 GEORGE BISHOP Mar 23, 2017 13:35
[2017-03-23] MEDS: DIGOXIN 0.125 MG TAB PO SCH (14:17)
[2017-03-23] MEDS: ATORVASTATIN 20 MG TAB PO SCH (21:35)
[2017-03-23] MEDS: ALBUTEROL/IPRATROPIUM (NEB) 3 ML AMP HHN PRN (23:11)
[2017-03-24] VITALS (12 sets, daily range): BP systolic 62–140; BP diastolic 52–65; PULSE 116–130; RESP 17–20
[2017-03-24] MEDS: METOCLOPRAMIDE (1 MG/ML) 10 ML CUP GTB SCH ×4 (05:47→21:22)
[2017-03-24] MEDS: LEVOFLOXACIN 500 MG TAB PO SCH (05:48)
[2017-03-24] MEDS: PANTOPRAZOLE (EC) 40 MG TAB PO SCH (05:48)
[2017-03-24] MEDS: ALBUTEROL/IPRATROPIUM (NEB) 3 ML AMP HHN SCH ×3 (07:09→19:51)
[2017-03-24] MEDS: ENOXAPARIN 40 MG/0.4 ML SYG SC SCH ×2 (09:00→10:18)
[2017-03-24] MEDS: MIDODRINE 2.5 MG TAB PO SCH ×3 (09:00→17:59)
[2017-03-24 09:21] LABS: INR 1.05; PROTIME 13.7 Sec (12.2-14.2); PT RATIO 1.1
[2017-03-24 09:22] LABS: PARTIAL THROMBOPLASTIN TIME 32.9 Sec (25.0-35.0)
[2017-03-24] MEDS: ASPIRIN (EC) 81 MG TAB PO SCH (09:58)
[2017-03-24] MEDS: VITAMIN A & D 5 GM OINT PACKET TOP SCH ×2 (09:58→21:22)
[2017-03-24] MEDS: LORAZEPAM 0.5 MG TAB PEG PRN (09:59)
--- NOTE | 2017-03-24 10:01 | CONS ---
Date/Time of Note Date/Time of Note DATE: 03/24/17 TIME: 10:00 Consult Date/Type/Reason Admit Date/Time Mar 08, 2017 at 22:13 Type of Consultation: Pulmonary Ordering Provider: GARY CROSS MD Subjective Patient comfortable this morning. Had a restless night. Objective Vital Signs Date Time Temp Pulse Resp B/P Pulse Ox O2 Delivery O2 Flow Rate FiO2 03/24/17 08:17 116 03/24/17 07:50 98.4 18 95/54 98 03/24/17 07:09 Nasal Cannula 6.0 Intake and Output 03/23/17 03/23/17 03/24/17 15:00 23:00 07:00 Intake Total 900 ml 720 ml Balance 900 ml 720 ml Exam GENERAL: Currently ill-appearing lady comfortable at rest no acute distress VITAL SIGNS: per chart NECK: Supple. No JVD or lymphadenopathy. CARDIAC EXAM: S1, S2. No added sounds or murmurs. CHEST: Diminished air entry bilaterally with rales right base. ABDOMEN: Soft, nontender. No guarding or rebound. EXTREMITIES: No cyanosis, clubbing or edema. NEUROLOGIC: Generalized weakness. No focal deficits. Results/Medications Result Diagram: 03/24/17 0843 03/24/17 0701 Results 24 hrs Laboratory Tests Test 03/24/17 07:01 03/24/17 08:43 Sodium Level 133 L Platelet Count 287 Prothrombin Time 13.7 Prothrombin Time Ratio 1.1 INR International Normalized Ratio 1.05 Activated Partial Thromboplast Time 32.9 Thrombin Time Pending Medications Current Medications Ondansetron HCl/ Dextrose (Zofran Inj/D5W) 54 ml @ 108 mls/hr Q6H PRN IV NAUSEA AND/OR VOMITING Last administered on 03/12/17 12:57; Admin Dose 108 MLS /HR; Start 03/09/17 at 02:30 Aspirin (Halfprin) 81 mg DAILY PO Last administered on 03/23/17 08:54; Admin Dose 81 MG; Start 03/09/17 at 12:30 Atorvastatin Calcium (Lipitor) 20 mg HS PO Last administered on 03/23/17 21: 35; Admin Dose 20 MG; Start 03/09/17 at 21:00 Digoxin (Digoxin) 0.125 mg DAILY@13 PO Last administered on 03/23/17 14:17; Admin Dose 0.125 MG; Start 03/09/17 at 13:00 Lorazepam (Ativan) 0.5 mg Q8H PRN PO ANXIETY; Start 03/09/17 at 12:30 Ondansetron HCl (Zofran Tab) 4 mg Q6H PRN PO NAUSEA AND/OR VOMITING; Start 03/09/17 at 12:30 Acetaminophen/ Hydrocodone Bitart ([place] (5/325)) 1 tab Q6H PRN PO PAIN LEVEL 6 -10 Last administered on 03/15/17 20:53; Admin Dose 1 TAB; Start 03/09/17 at 12:30 Bisacodyl (Dulcolax) 5 mg DAILY PRN PO CONSTIPATION; Start 03/09/17 at 12:30 Enoxaparin Sodium (Lovenox) 40 mg DAILY SC Last administered on 03/23/17 09: 04; Admin Dose 40 MG; Start 03/11/17 at 17:00 Vitamin A/Vitamin D (Vitamin A & D Oint) 1 applic BID TOP Last administered on 03/23/17 21:36; Admin Dose 1 APPLIC; Start 03/15/17 at 14:00 Midodrine (Proamatine) 2.5 mg TID@,,17 PO Last administered on 03/23/17 18:18; Admin Dose 2.5 MG; Start 03/17/17 at 09:00 Levofloxacin (Levaquin) 500 mg DAILY@06 PO Last administered on 03/24/17 05: 48; Admin Dose 500 MG; Start 03/17/17 at 19:00 Metoclopramide HCl (Reglan Liq) 10 mg Q6H GTB Last administered on 03/24/17 05:47; Admin Dose 10 MG; Start 03/18/17 at 16:00 Pantoprazole (Protonix Tab) 40 mg DAILY@06 PO Last administered on 03/24/17 05:48; Admin Dose 40 MG; Start 03/19/17 at 06:00 Carvedilol (Coreg) 6.25 mg BID PO Last administered on 03/23/17 08:55; Admin Dose 6.25 MG; Start 03/20/17 at 21:00 Morphine Sulfate (morphine) 2 mg Q4H PRN IV PAIN LEVEL 4-6 Last administered on 03/20/17 14:48; Admin Dose 2 MG; Start 03/20/17 at 14:30 Lorazepam (Ativan) 0.5 mg TID PRN PEG anxiety Last administered on 03/23/17 22:03; Admin Dose 0.5 MG; Start 03/20/17 at 15:30 Assessment/Plan Chief Complaint/Hosp Course Assessment 1. 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 Bilateral Pleurx catheters in place. Will need adjustment of right Pleurx catheter to adequately drain pleural effusion. 2. Persistent leukocytosis concerning for underlying infection. 3. Dysphagia with decreased p.o. intake. Status post G-tube placement. 4. Persistent tachycardia likely secondary to underlying malignancy and possible volume depletion. Plan 1. Continue daily Pleurx catheter drainage daily. Pleurx catheter to be revised by radiology this morning. 2. Pain control and anxiolytics 3. Continue antibiotics. 4. Continue tube feeding Consider discharge to senior care facility after Pleurx catheter adjustment. Problems: STAN MAC MD, [facility] Mar 24, 2017 10:01
[2017-03-24 10:36] LABS: THROMBIN TIME 12.9 SEC (13.8-19.1)
--- NOTE | 2017-03-24 11:47 | PN ---
Date/Time of Note Date/Time of Note DATE: 03/24/17 TIME: 11:46 Assessment/Plan VTE Prophylaxis VTE Prophylaxis Intervention: ambulation, SCD's Lines/Catheters IV Catheter Type (from Nrs): Saline Lock Urinary Cath still in place: No Assessment/Plan Chief Complaint/Hosp Course s: 11.22: still sob 11.23: sleeping, less sob 11.24: restless, but sleeping now, no pleurx drainage o: General: patient resting, mild distress due to palpitations Head: Normocephalic atraumatic Eyes: EOMI, pupils reactive to light Neck: Supple, nontender, midline Respiratory: crackles at bases bilaterally Cardiovascular: irregular rhythm, tachycardia, no obvious murmurs Gastrointestinal: non-tender to palpation, bowel sounds heard. Neurological: Moves all extremities spontaneously Patient is a 81-year-old female who recently was discharged 2 days prior to previous admission, however patient's residential facility unit on oxygen and patient went into acute respiratory failure, and was sent to local ICU, transferred for insurance reasons. Assessment/Plan #palpitations -persistent -cardiology recs appreciated -multifactorial issues #. Acute on chronic respiratory failure secondary pleural effusions - abx stopped, unlikely PNA source, patient doing well - Will continue on NC and wean as tolerated to maintain O2 >90% - Pulmonology consulted and recommendations appreciated. Continue on daily pleurx drainage at night, will need to unclog R pleurx, ordered per radiology - Bronchodilators #. Elevated troponin -mild, cardiology aware, no intervention -no chest pain #[place] UTI -patient and patient's family did not want to treat with antifungal at this time -monitor for now as patient is asymptomatic #. Dysphagia - GI reconsulted and recommendations appreciated - PEG tubed and tolerating tube feeds well. Pleasure feeds as well as tolerated -scheduled reglan #. Bilateral pleural effusions, malignant per path report in january, breast CA. - Pulmonology on board. Will need daily to q 3day pleurx drainage. - Continue on NC and wean as tolerating to keep saturations >90% #. Tachycardia - Cardiology on board and consultation appreciated - On Digoxin and coreg #. Hyponatremia - improved - Nephrology on board recs appreciated - No acute symptoms - monitor #. Cardiomyopathy, congestive heart failure, acute on chronic ejection fraction 45% - Cardiology on board and recommendations appreciated. - Continue statin, asa, coreg as tolerated - ICD battery change done #. 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 Merlso, oncology, outpatient. States patient is stage IV and not appropriate to continue chemotherapy at this time. Recommending Palliative care at this time. - Spoke with Family and they are not satisfied with plan and would like to continue to pursue treatment once patient discharged - Dr. Ray offered secondary opinion and agrees with Dr. Merlos in that patient is too debilitated to undergo chemotherapy #. Anemia of chronic disease - currently stable - will continue monitoring #. Disposition - Monitor sodium levels - SNF placement. Family would like [facility] - patient's family undecided on hospice, however unlikely after speaking with son, as they would like continued care in the form of lab draws/xrays/ supportive care instead of total comfort care. -stabilize enough so that she will not be an automatic bounce back from SNF -pending pleurx repositioning per radiology Problems: Exam/Review of Systems Vital Signs Vitals Vital Signs Date Time Temp Pulse Resp B/P Pulse Ox O2 Delivery O2 Flow Rate FiO2 03/24/17 11: 98.8 120 17 115/65 96 03/24/17 08:30 Nasal Cannula 6.0 Intake and Output 03/23/17 03/23/17 03/24/17 15:00 23:00 07:00 Intake Total 900 ml 720 ml Balance 900 ml 720 ml Results Result Diagram: 03/24/17 0843 03/24/17 0701 Results 24 hrs Laboratory Tests Test 03/24/17 07:01 03/24/17 08:43 Sodium Level 133 L Platelet Count 287 Prothrombin Time 13.7 Prothrombin Time Ratio 1.1 INR International Normalized Ratio 1.05 Activated Partial Thromboplast Time 32.9 Thrombin Time 12.9 L Medications Medications Current Medications Ondansetron HCl/ Dextrose (Zofran Inj/D5W) 54 ml @ 108 mls/hr Q6H PRN IV NAUSEA AND/OR VOMITING Last administered on 03/12/17 12:57; Admin Dose 108 MLS /HR; Start 03/09/17 at 02:30 Aspirin (Halfprin) 81 mg DAILY PO Last administered on 03/24/17 09:58; Admin Dose 81 MG; Start 03/09/17 at 12:30 Atorvastatin Calcium (Lipitor) 20 mg HS PO Last administered on 03/23/17 21: 35; Admin Dose 20 MG; Start 03/09/17 at 21:00 Digoxin (Digoxin) 0.125 mg DAILY@13 PO Last administered on 03/23/17 14:17; Admin Dose 0.125 MG; Start 03/09/17 at 13:00 Lorazepam (Ativan) 0.5 mg Q8H PRN PO ANXIETY; Start 03/09/17 at 12:30 Ondansetron HCl (Zofran Tab) 4 mg Q6H PRN PO NAUSEA AND/OR VOMITING; Start 03/09/17 at 12:30 Acetaminophen/ Hydrocodone Bitart ([place] (5/325)) 1 tab Q6H PRN PO PAIN LEVEL 6 -10 Last administered on 03/15/17 20:53; Admin Dose 1 TAB; Start 03/09/17 at 12:30 Bisacodyl (Dulcolax) 5 mg DAILY PRN PO CONSTIPATION; Start 03/09/17 at 12:30 Enoxaparin Sodium (Lovenox) 40 mg DAILY SC Last administered on 03/24/17 10: 18; Admin Dose 40 MG; Start 03/11/17 at 17:00 Vitamin A/Vitamin D (Vitamin A & D Oint) 1 applic BID TOP Last administered on 03/24/17 09:58; Admin Dose 1 APPLIC; Start 03/15/17 at 14:00 Midodrine (Proamatine) 2.5 mg TID@,,17 PO Last administered on 03/24/17 09:00; Admin Dose 2.5 MG; Start 03/17/17 at 09:00 Levofloxacin (Levaquin) 500 mg DAILY@06 PO Last administered on 03/24/17 05: 48; Admin Dose 500 MG; Start 03/17/17 at 19:00 Metoclopramide HCl (Reglan Liq) 10 mg Q6H GTB Last administered on 03/24/17 09:58; Admin Dose 10 MG; Start 03/18/17 at 16:00 Pantoprazole (Protonix Tab) 40 mg DAILY@06 PO Last administered on 03/24/17 05:48; Admin Dose 40 MG; Start 03/19/17 at 06:00 Carvedilol (Coreg) 6.25 mg BID PO Last administered on 03/23/17 08:55; Admin Dose 6.25 MG; Start 03/20/17 at 21:00 Morphine Sulfate (morphine) 2 mg Q4H PRN IV PAIN LEVEL 4-6 Last administered on 03/20/17 14:48; Admin Dose 2 MG; Start 03/20/17 at 14:30 Lorazepam (Ativan) 0.5 mg TID PRN PEG anxiety Last administered on 03/24/17 09:59; Admin Dose 0.5 MG; Start 03/20/17 at 15:30 DIMA COVARRUBIAS Mar 24, 2017 11:47
--- NOTE | 2017-03-24 12:30 | CONS ---
GEORGE BISHOP 03/24/17 1230: Date/Time of Note Date/Time of Note DATE: 03/24/17 TIME: 12:29 Assessment/Plan Assessment/Plan Chief Complaint/Hosp Course 1. Recurrent hyponatremia, better from 122 to 131 2. Urinary tract infection. 3. Congestive heart failure, systolic and chronic EF 35% by echo this admit. 4. History of cardiomyopathy, decreased ejection fraction. 5. Status post AICD generator change. 6. Pleural effusion, recurrent, status post PleurX. 7. Metastatic breast carcinoma. 8. Hypoxia. 9. Sinus tachycardia. 10 Sepsis Problems: Additional Assessment/Plan 1. Continue current treatment 2. Hyponatremia might not be corrected Consultation Date/Type/Reason Admit Date/Time Mar 08, 2017 at 22:13 Initial Consult Date 03/17/17 Type of Consultation: nephrology Reason for Consultation Dr Boss Referring Provider: GARY CROSS MD Exam/Review of Systems Vital Signs Vitals Vital Signs Date Time Temp Pulse Resp B/P Pulse Ox O2 Delivery O2 Flow Rate FiO2 03/24/17 12:14 123 03/24/17 11: 98.8 17 115/65 96 03/24/17 08:30 Nasal Cannula 6.0 Intake and Output 03/23/17 03/23/17 03/24/17 15:00 23:00 07:00 Intake Total 900 ml 720 ml Balance 900 ml 720 ml Exam pale Constitutional: alert, oriented ENMT: nl external ears & nose Respiratory: diminished breath sounds Cardiovascular: regular rate and rhythm Gastrointestinal: soft Results Result Diagram: 03/24/17 0843 03/24/17 0701 Results 24 hrs Laboratory Tests Test 03/24/17 07:01 03/24/17 08:43 Sodium Level 133 L Platelet Count 287 Prothrombin Time 13.7 Prothrombin Time Ratio 1.1 INR International Normalized Ratio 1.05 Activated Partial Thromboplast Time 32.9 Thrombin Time 12.9 L Medications Medications Current Medications Ondansetron HCl/ Dextrose (Zofran Inj/D5W) 54 ml @ 108 mls/hr Q6H PRN IV NAUSEA AND/OR VOMITING Last administered on 03/12/17 12:57; Admin Dose 108 MLS /HR; Start 03/09/17 at 02:30 Aspirin (Halfprin) 81 mg DAILY PO Last administered on 03/24/17 09:58; Admin Dose 81 MG; Start 03/09/17 at 12:30 Atorvastatin Calcium (Lipitor) 20 mg HS PO Last administered on 03/23/17 21: 35; Admin Dose 20 MG; Start 03/09/17 at 21:00 Digoxin (Digoxin) 0.125 mg DAILY@13 PO Last administered on 03/23/17 14:17; Admin Dose 0.125 MG; Start 03/09/17 at 13:00 Lorazepam (Ativan) 0.5 mg Q8H PRN PO ANXIETY; Start 03/09/17 at 12:30 Ondansetron HCl (Zofran Tab) 4 mg Q6H PRN PO NAUSEA AND/OR VOMITING; Start 03/09/17 at 12:30 Acetaminophen/ Hydrocodone Bitart ([place] (5/325)) 1 tab Q6H PRN PO PAIN LEVEL 6 -10 Last administered on 03/15/17 20:53; Admin Dose 1 TAB; Start 03/09/17 at 12:30 Bisacodyl (Dulcolax) 5 mg DAILY PRN PO CONSTIPATION; Start 03/09/17 at 12:30 Enoxaparin Sodium (Lovenox) 40 mg DAILY SC Last administered on 03/24/17 10: 18; Admin Dose 40 MG; Start 03/11/17 at 17:00 Vitamin A/Vitamin D (Vitamin A & D Oint) 1 applic BID TOP Last administered on 03/24/17 09:58; Admin Dose 1 APPLIC; Start 03/15/17 at 14:00 Midodrine (Proamatine) 2.5 mg TID@,,17 PO Last administered on 03/24/17 09:00; Admin Dose 2.5 MG; Start 03/17/17 at 09:00 Levofloxacin (Levaquin) 500 mg DAILY@06 PO Last administered on 03/24/17 05: 48; Admin Dose 500 MG; Start 03/17/17 at 19:00 Metoclopramide HCl (Reglan Liq) 10 mg Q6H GTB Last administered on 03/24/17 09:58; Admin Dose 10 MG; Start 03/18/17 at 16:00 Pantoprazole (Protonix Tab) 40 mg DAILY@06 PO Last administered on 03/24/17 05:48; Admin Dose 40 MG; Start 03/19/17 at 06:00 Carvedilol (Coreg) 6.25 mg BID PO Last administered on 03/23/17 08:55; Admin Dose 6.25 MG; Start 03/20/17 at 21:00 Morphine Sulfate (morphine) 2 mg Q4H PRN IV PAIN LEVEL 4-6 Last administered on 03/20/17 14:48; Admin Dose 2 MG; Start 03/20/17 at 14:30 Lorazepam (Ativan) 0.5 mg TID PRN PEG anxiety Last administered on 03/24/17 09:59; Admin Dose 0.5 MG; Start 03/20/17 at 15:30 SHIN BARNEY MD 03/24/17 1547: Assessment/Plan Assessment/Plan Additional Assessment/Plan Na improved to 133 Exam/Review of Systems Results Result Diagram: 03/24/17 0843 03/24/17 0701 GEORGE BISHOP Mar 24, 2017 12:30 SHIN BARNEY MD Mar 24, 2017 15:47
--- NOTE | 2017-03-24 13:41 | CONS ---
Date/Time of Note Date/Time of Note DATE: 03/24/17 TIME: 13:40 Assessment/Plan Assessment/Plan Additional Assessment/Plan 1. Congestive heart failure exacerbation-systolic acute on chronic EF 35%by echo this admit - con't to keep euvolemic. NO change. STABLE. 2. History of cardiomyopathy, decreased left ventricular ejection fraction. 35 % by echo this admit - BiV ICD in place. 3. Status post recent automatic implantable cardioverter-defibrillator generator change. 4. Pleural effusions, recurrent, status post PleurX catheter- still with fluid retention, malignant. POOR prognosis. REACCUMULATED - plan to remove more fluid now. 5. Metastatic breast carcinoma- Stage IV, onc follows. 6. Hypoxia, improved. 7. Tachycardia consistent with sinus tachycardia- treat underlined dz. 8. Hypotension-borderline 9. HYponatremia-slowly improving with IVF Consultation Date/Type/Reason Admit Date/Time Mar 08, 2017 at 22:13 Type of Consultation: nephrology Referring Provider: GARY RCOSS MD 24 HR Interval Summary Free Text/Dictation still with pleural fluid retention, malignant REACCUMULATED - plan to remove more fluid now. ROS: No fever, no chills, no nausea, no vomiting, no diarrhea/constipation No recent weight changes No chest pain, no PND, no orthopnea + SOB, not in pain No dizziness, blurred vision No thirst, no heat or cold intolerance Exam/Review of Systems Vital Signs Vitals Vital Signs Date Time Temp Pulse Resp B/P Pulse Ox O2 Delivery O2 Flow Rate FiO2 03/24/17 12:14 123 03/24/17 11: 98.8 17 115/65 96 03/24/17 08:30 Nasal Cannula 6.0 Intake and Output 03/23/17 03/23/17 03/24/17 15:00 23:00 07:00 Intake Total 900 ml 720 ml Balance 900 ml 720 ml Exam General: WN/WD/NAD, AOx 3 HEENT: Unicetric/atraumatic/EOMI (follows commands) NECK: JVD elevated, no thyromegaly Lymph: no lymphadenopathy HEART: regular with no S3, II/ systolic murmur at apex LUNGS: Coarse sounds, cath in place ABD: soft, NT, ND, +BS : Intact Neuro: non focal SKIN: chronic changes EXT: trace edema Results Result Diagram: 03/24/17 0843 03/24/17 0701 Results 24 hrs Laboratory Tests Test 03/24/17 07:01 03/24/17 08:43 Sodium Level 133 L Platelet Count 287 Prothrombin Time 13.7 Prothrombin Time Ratio 1.1 INR International Normalized Ratio 1.05 Activated Partial Thromboplast Time 32.9 Thrombin Time 12.9 L Medications Medications Current Medications Ondansetron HCl/ Dextrose (Zofran Inj/D5W) 54 ml @ 108 mls/hr Q6H PRN IV NAUSEA AND/OR VOMITING Last administered on 03/12/17 12:57; Admin Dose 108 MLS /HR; Start 03/09/17 at 02:30 Aspirin (Halfprin) 81 mg DAILY PO Last administered on 03/24/17 09:58; Admin Dose 81 MG; Start 03/09/17 at 12:30 Atorvastatin Calcium (Lipitor) 20 mg HS PO Last administered on 03/23/17 21: 35; Admin Dose 20 MG; Start 03/09/17 at 21:00 Digoxin (Digoxin) 0.125 mg DAILY@13 PO Last administered on 03/23/17 14:17; Admin Dose 0.125 MG; Start 03/09/17 at 13:00 Lorazepam (Ativan) 0.5 mg Q8H PRN PO ANXIETY; Start 03/09/17 at 12:30 Ondansetron HCl (Zofran Tab) 4 mg Q6H PRN PO NAUSEA AND/OR VOMITING; Start 03/09/17 at 12:30 Acetaminophen/ Hydrocodone Bitart ([place] (5/325)) 1 tab Q6H PRN PO PAIN LEVEL 6 -10 Last administered on 03/15/17 20:53; Admin Dose 1 TAB; Start 03/09/17 at 12:30 Bisacodyl (Dulcolax) 5 mg DAILY PRN PO CONSTIPATION; Start 03/09/17 at 12:30 Enoxaparin Sodium (Lovenox) 40 mg DAILY SC Last administered on 03/23/17 09: 04; Admin Dose 40 MG; Start 03/11/17 at 17:00 Vitamin A/Vitamin D (Vitamin A & D Oint) 1 applic BID TOP Last administered on 03/24/17 09:58; Admin Dose 1 APPLIC; Start 03/15/17 at 14:00 Midodrine (Proamatine) 2.5 mg TID@,,17 PO Last administered on 03/24/17 09:00; Admin Dose 2.5 MG; Start 03/17/17 at 09:00 Levofloxacin (Levaquin) 500 mg DAILY@06 PO Last administered on 03/24/17 05: 48; Admin Dose 500 MG; Start 03/17/17 at 19:00 Metoclopramide HCl (Reglan Liq) 10 mg Q6H GTB Last administered on 03/24/17 09:58; Admin Dose 10 MG; Start 03/18/17 at 16:00 Pantoprazole (Protonix Tab) 40 mg DAILY@06 PO Last administered on 03/24/17 05:48; Admin Dose 40 MG; Start 03/19/17 at 06:00 Carvedilol (Coreg) 6.25 mg BID PO Last administered on 03/23/17 08:55; Admin Dose 6.25 MG; Start 03/20/17 at 21:00 Morphine Sulfate (morphine) 2 mg Q4H PRN IV PAIN LEVEL 4-6 Last administered on 03/20/17 14:48; Admin Dose 2 MG; Start 03/20/17 at 14:30 Lorazepam (Ativan) 0.5 mg TID PRN PEG anxiety Last administered on 03/24/17 09:59; Admin Dose 0.5 MG; Start 03/20/17 at 15:30 STEFANY BOYCE MD Mar 24, 2017 13:41
[2017-03-24] MEDS: DIGOXIN 0.125 MG TAB PO SCH (13:54)
[2017-03-24 19:54] LABS: ABNORMAL IP MESSAGE 1; HEMATOCRIT 30.4 % (37.0-47.0); HEMOGLOBIN 9.8 g/dl (12.0-16.0); MEAN CORPUSCULAR HEMOGLOBIN 29.6 pg (29.0-33.0); MEAN CORPUSCULAR HGB CONC 32.2 g/dl (32.0-37.0); MEAN CORPUSCULAR VOLUME 91.8 fl (82.0-101.0); MEAN PLATELET VOLUME 11.2 fl (7.4-10.4); PLATELET COUNT 285 10^3/UL (140-415); RED BLOOD COUNT 3.31 10^6/ul (4.20-5.40); RED CELL DISTRIBUTION WIDTH 16.9 % (11.5-14.5); WHITE BLOOD COUNT 15.9 10^3/ul (4.8-10.8)
[2017-03-24 19:56] LABS: POSITIVE DIFF @See below
[2017-03-24 20:22] LABS: CALCIUM 8.4 mg/dl (8.4-10.2); CREATININE 0.84 mg/dl (0.44-1.00); POTASSIUM 5.5 mmol/L (3.5-5.1)
[2017-03-24 20:37] LABS: METAMYELOCYTES %M 2 % (0-0); MONOCYTES % (M) 2 % (0-11); PLATELET ESTIMATE NORMAL; POIKILOCYTOSIS 1+ (0-0); POLYCHROMASIA 1+ (0-0)
[2017-03-24] MEDS: ATORVASTATIN 20 MG TAB PO SCH (21:22)
[2017-03-25] VITALS (13 sets, daily range): BP systolic 93–119; BP diastolic 55–62; PULSE 108–130; RESP 17–20
[2017-03-25] MEDS: LORAZEPAM 0.5 MG TAB PEG PRN ×3 (02:31→18:06)
[2017-03-25] MEDS: LEVOFLOXACIN 500 MG TAB PO SCH (05:25)
[2017-03-25] MEDS: PANTOPRAZOLE (EC) 40 MG TAB PO SCH (05:25)
[2017-03-25] MEDS: METOCLOPRAMIDE (1 MG/ML) 10 ML CUP GTB SCH ×4 (05:25→21:13)
[2017-03-25] MEDS: ALBUTEROL/IPRATROPIUM (NEB) 3 ML AMP HHN SCH ×3 (08:13→19:55)
[2017-03-25] MEDS: ASPIRIN (EC) 81 MG TAB PO SCH (09:28)
[2017-03-25] MEDS: VITAMIN A & D 5 GM OINT PACKET TOP SCH ×2 (09:28→21:13)
[2017-03-25] MEDS: ENOXAPARIN 40 MG/0.4 ML SYG SC SCH (09:34)
--- NOTE | 2017-03-25 09:49 | CONS ---
Date/Time of Note Date/Time of Note DATE: 03/25/17 TIME: 09:47 Consult Date/Type/Reason Admit Date/Time Mar 08, 2017 at 22:13 Type of Consultation: Pulmonary Ordering Provider: GARY CROSS MD Subjective More comfortable. 250 cc drained from right lung. discussed with radiology at length yesterday. Loculated pleural effusions therefore not candidate for another Pleurx catheter per radiology. Objective Vital Signs Date Time Temp Pulse Resp B/P Pulse Ox O2 Delivery O2 Flow Rate FiO2 03/25/17 08:30 97.9 116 18 96/56 95 03/25/17 08:13 Nasal Cannula 6.0 Intake and Output 03/24/17 03/24/17 03/25/17 15:00 23:00 07:00 Intake Total 700 ml 700 ml Balance 700 ml 700 ml Exam GENERAL: Currently ill-appearing lady comfortable at rest no acute distress VITAL SIGNS: per chart NECK: Supple. No JVD or lymphadenopathy. CARDIAC EXAM: S1, S2. No added sounds or murmurs. CHEST: Diminished air entry bilaterally with rales right base. ABDOMEN: Soft, nontender. No guarding or rebound. EXTREMITIES: No cyanosis, clubbing or edema. NEUROLOGIC: Generalized weakness. No focal deficits. Results/Medications Result Diagram: 03/24/17193103/24/171931 Results 24 hrs Laboratory Tests Test 03/24/17 19:32 White Blood Count 15.9 H Red Blood Count 3.31 L Hemoglobin 9.8 L Hematocrit 30.4 L Mean Corpuscular Volume 91.8 Mean Corpuscular Hemoglobin 29.6 Mean Corpuscular Hemoglobin Concent 32.2 Red Cell Distribution Width 16.9 H Platelet Count 285 # Mean Platelet Volume 11.2 H Neutrophils % Segmented Neutrophils % (Manual) 92 H Band Neutrophils % (Manual) 2 Lymphocytes % Lymphocytes % (Manual) 2 L Monocytes % Monocytes % (Manual) 2 Eosinophils % Basophils % Metamyelocytes % (manual) 2 H Nucleated Red Blood Cells % 0.0 Neutrophils # Neutrophils # (Manual) 14.7 H Band Neutrophils # 0.3 Absolute Lymphocytes (Manual) 0.3 L Lymphocytes # Monocytes # Absolute Monocytes (Manual) 0.3 Eosinophils # Basophils # Metamyelocytes # 0.3 H Nucleated Red Blood Cells # Platelet Estimate NORMAL Polychromasia 1+ Poikilocytosis 1+ Sodium Level 133 L Potassium Level 5.5 H Chloride Level 91 L Carbon Dioxide Level 33 H Anion Gap 15 Blood Urea Nitrogen 28 H Creatinine 0.84 Glucose Level 174 Calcium Level 8.4 Medications Current Medications Ondansetron HCl/ Dextrose (Zofran Inj/D5W) 54 ml @ 108 mls/hr Q6H PRN IV NAUSEA AND/OR VOMITING Last administered on 03/12/17 12:57; Admin Dose 108 MLS /HR; Start 03/09/17 at 02:30 Aspirin (Halfprin) 81 mg DAILY PO Last administered on 03/25/17 09:28; Admin Dose 81 MG; Start 03/09/17 at 12:30 Atorvastatin Calcium (Lipitor) 20 mg HS PO Last administered on 03/24/17 21: 22; Admin Dose 20 MG; Start 03/09/17 at 21:00 Digoxin (Digoxin) 0.125 mg DAILY@13 PO Last administered on 03/24/17 13:54; Admin Dose 0.125 MG; Start 03/09/17 at 13:00 Lorazepam (Ativan) 0.5 mg Q8H PRN PO ANXIETY; Start 03/09/17 at 12:30 Ondansetron HCl (Zofran Tab) 4 mg Q6H PRN PO NAUSEA AND/OR VOMITING; Start 03/09/17 at 12:30 Acetaminophen/ Hydrocodone Bitart ([place] (5/325)) 1 tab Q6H PRN PO PAIN LEVEL 6 -10 Last administered on 03/15/17 20:53; Admin Dose 1 TAB; Start 03/09/17 at 12:30 Bisacodyl (Dulcolax) 5 mg DAILY PRN PO CONSTIPATION; Start 03/09/17 at 12:30 Enoxaparin Sodium (Lovenox) 40 mg DAILY SC Last administered on 03/25/17 09: 34; Admin Dose 40 MG; Start 03/11/17 at 17:00 Vitamin A/Vitamin D (Vitamin A & D Oint) 1 applic BID TOP Last administered on 03/25/17 09:28; Admin Dose 1 APPLIC; Start 03/15/17 at 14:00 Midodrine (Proamatine) 2.5 mg TID@,,17 PO Last administered on 03/24/17 17:59; Admin Dose 2.5 MG; Start 03/17/17 at 09:00 Levofloxacin (Levaquin) 500 mg DAILY@06 PO Last administered on 03/25/17 05: 25; Admin Dose 500 MG; Start 03/17/17 at 19:00 Metoclopramide HCl (Reglan Liq) 10 mg Q6H GTB Last administered on 03/25/17 09:28; Admin Dose 10 MG; Start 03/18/17 at 16:00 Pantoprazole (Protonix Tab) 40 mg DAILY@06 PO Last administered on 03/25/17 05:25; Admin Dose 40 MG; Start 03/19/17 at 06:00 Carvedilol (Coreg) 6.25 mg BID PO Last administered on 03/24/17 21:23; Admin Dose 6.25 MG; Start 03/20/17 at 21:00 Morphine Sulfate (morphine) 2 mg Q4H PRN IV PAIN LEVEL 4-6 Last administered on 03/20/17 14:48; Admin Dose 2 MG; Start 03/20/17 at 14:30 Lorazepam (Ativan) 0.5 mg TID PRN PEG anxiety Last administered on 03/25/17 05:12; Admin Dose 0.5 MG; Start 03/20/17 at 15:30 Assessment/Plan Chief Complaint/Hosp Course Assessment 1. 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 Bilateral Pleurx catheters in place. Will need adjustment of right Pleurx catheter to adequately drain pleural effusion. 2. Persistent leukocytosis concerning for underlying infection. 3. Dysphagia with decreased p.o. intake. Status post G-tube placement. 4. Persistent tachycardia likely secondary to underlying malignancy and possible volume depletion. Plan 1. Continue daily Pleurx catheter drainage daily. Pleurx catheter to be revised by radiology this morning. 2. Pain control and anxiolytics 3. Continue antibiotics. 4. Continue tube feeding Discussed complex problems with patient's son at bedside. Explained that patient is not a surgical candidate for VATS pleurodesis. In addition chest tube may not improve her quality of life. Would recommend continuing daily drainage of current Pleurx catheters. Focus on comfort care. Patient son agrees. We will look for intermediate facilities under hospice care. Problems: STAN MAC MD, [facility] Mar 25, 2017 09:49
[2017-03-25] MEDS: MIDODRINE 2.5 MG TAB PO SCH ×3 (10:32→18:06)
--- NOTE | 2017-03-25 10:33 | CONS ---
Date/Time of Note Date/Time of Note DATE: 03/25/17 TIME: 10:32 Assessment/Plan Assessment/Plan Additional Assessment/Plan 1. Congestive heart failure exacerbation-systolic acute on chronic EF 35%by echo this admit - con't to keep euvolemic. NO change. STABLE. 2. History of cardiomyopathy, decreased left ventricular ejection fraction. 35 % by echo this admit - BiV ICD in place. - no ectopy on tele 3. Status post recent automatic implantable cardioverter-defibrillator generator change.Site lookswell. 4. Pleural effusions, recurrent, status post PleurX catheter- still with fluid retention, malignant. POOR prognosis. REACCUMULATED - plan to remove more fluid now. Effusion Rx noted. 5. Metastatic breast carcinoma- Stage IV, onc follows. 6. Hypoxia, improved. 7. Tachycardia consistent with sinus tachycardia- treat underlined dz. 8. Hypotension-borderline 9. HYponatremia-slowly improving with IVF Consultation Date/Type/Reason Admit Date/Time Mar 08, 2017 at 22:13 Type of Consultation: Pulmonary Referring Provider: GARY CROSS MD 24 HR Interval Summary Free Text/Dictation NO acute events - BP in good range - no CP now. ROS: No fever, no chills, no nausea, no vomiting, no diarrhea/constipation No recent weight changes No chest pain, no PND, no orthopnea - SOB No dizziness, blurred vision No thirst, no heat or cold intolerance Exam/Review of Systems Vital Signs Vitals Vital Signs Date Time Temp Pulse Resp B/P Pulse Ox O2 Delivery O2 Flow Rate FiO2 03/25/17 08:30 97.9 116 18 96/56 95 03/25/17 08:13 Nasal Cannula 6.0 Intake and Output 03/24/17 03/24/17 03/25/17 15:00 23:00 07:00 Intake Total 700 ml 700 ml Balance 700 ml 700 ml Exam General: WN/WD/NAD, AOx comfortable HEENT: Unicetric/atraumatic/EOMI (follows commands) NECK: JVD elevated, no thyromegaly Lymph: no lymphadenopathy HEART: regular with no S3, II/ systolic murmur at apex LUNGS: Coarse sounds ABD: soft, NT, ND, +BS : Intact Neuro: non focal SKIN: chronic changes EXT: trace edema Results Result Diagram: 03/24/17193103/24/171931 Results 24 hrs Laboratory Tests Test 03/24/17 19:32 White Blood Count 15.9 H Red Blood Count 3.31 L Hemoglobin 9.8 L Hematocrit 30.4 L Mean Corpuscular Volume 91.8 Mean Corpuscular Hemoglobin 29.6 Mean Corpuscular Hemoglobin Concent 32.2 Red Cell Distribution Width 16.9 H Platelet Count 285 # Mean Platelet Volume 11.2 H Neutrophils % Segmented Neutrophils % (Manual) 92 H Band Neutrophils % (Manual) 2 Lymphocytes % Lymphocytes % (Manual) 2 L Monocytes % Monocytes % (Manual) 2 Eosinophils % Basophils % Metamyelocytes % (manual) 2 H Nucleated Red Blood Cells % 0.0 Neutrophils # Neutrophils # (Manual) 14.7 H Band Neutrophils # 0.3 Absolute Lymphocytes (Manual) 0.3 L Lymphocytes # Monocytes # Absolute Monocytes (Manual) 0.3 Eosinophils # Basophils # Metamyelocytes # 0.3 H Nucleated Red Blood Cells # Platelet Estimate NORMAL Polychromasia 1+ Poikilocytosis 1+ Sodium Level 133 L Potassium Level 5.5 H Chloride Level 91 L Carbon Dioxide Level 33 H Anion Gap 15 Blood Urea Nitrogen 28 H Creatinine 0.84 Glucose Level 174 Calcium Level 8.4 Medications Medications Current Medications Ondansetron HCl/ Dextrose (Zofran Inj/D5W) 54 ml @ 108 mls/hr Q6H PRN IV NAUSEA AND/OR VOMITING Last administered on 03/12/17 12:57; Admin Dose 108 MLS /HR; Start 03/09/17 at 02:30 Aspirin (Halfprin) 81 mg DAILY PO Last administered on 03/25/17 09:28; Admin Dose 81 MG; Start 03/09/17 at 12:30 Atorvastatin Calcium (Lipitor) 20 mg HS PO Last administered on 03/24/17 21: 22; Admin Dose 20 MG; Start 03/09/17 at 21:00 Digoxin (Digoxin) 0.125 mg DAILY@13 PO Last administered on 03/24/17 13:54; Admin Dose 0.125 MG; Start 03/09/17 at 13:00 Lorazepam (Ativan) 0.5 mg Q8H PRN PO ANXIETY; Start 03/09/17 at 12:30 Ondansetron HCl (Zofran Tab) 4 mg Q6H PRN PO NAUSEA AND/OR VOMITING; Start 03/09/17 at 12:30 Acetaminophen/ Hydrocodone Bitart ([place] (5/325)) 1 tab Q6H PRN PO PAIN LEVEL 6 -10 Last administered on 03/15/17 20:53; Admin Dose 1 TAB; Start 03/09/17 at 12:30 Bisacodyl (Dulcolax) 5 mg DAILY PRN PO CONSTIPATION; Start 03/09/17 at 12:30 Enoxaparin Sodium (Lovenox) 40 mg DAILY SC Last administered on 03/25/17 09: 34; Admin Dose 40 MG; Start 03/11/17 at 17:00 Vitamin A/Vitamin D (Vitamin A & D Oint) 1 applic BID TOP Last administered on 03/25/17 09:28; Admin Dose 1 APPLIC; Start 03/15/17 at 14:00 Midodrine (Proamatine) 2.5 mg TID@,,17 PO Last administered on 03/25/17 10:32; Admin Dose 2.5 MG; Start 03/17/17 at 09:00 Levofloxacin (Levaquin) 500 mg DAILY@06 PO Last administered on 03/25/17 05: 25; Admin Dose 500 MG; Start 03/17/17 at 19:00 Metoclopramide HCl (Reglan Liq) 10 mg Q6H GTB Last administered on 03/25/17 09:28; Admin Dose 10 MG; Start 03/18/17 at 16:00 Pantoprazole (Protonix Tab) 40 mg DAILY@06 PO Last administered on 03/25/17 05:25; Admin Dose 40 MG; Start 03/19/17 at 06:00 Carvedilol (Coreg) 6.25 mg BID PO Last administered on 03/24/17 21:23; Admin Dose 6.25 MG; Start 03/20/17 at 21:00 Morphine Sulfate (morphine) 2 mg Q4H PRN IV PAIN LEVEL 4-6 Last administered on 03/20/17 14:48; Admin Dose 2 MG; Start 03/20/17 at 14:30 Lorazepam (Ativan) 0.5 mg TID PRN PEG anxiety Last administered on 03/25/17 05:12; Admin Dose 0.5 MG; Start 03/20/17 at 15:30 STEFANY BOYCE MD Mar 25, 2017 10:33
[2017-03-25] MEDS: LORAZEPAM 0.5 MG TAB PO PRN (12:03)
[2017-03-25] MEDS: DIGOXIN 0.125 MG TAB PO SCH (12:07)
[2017-03-25] MEDS ORDERED: NA POLYST SULFON 15 GM/60 ML BTL PO ONE (12:30)
--- NOTE | 2017-03-25 12:34 | CONS ---
GEORGE BISHOP 03/25/17 1234: Date/Time of Note Date/Time of Note DATE: 03/25/17 TIME: 12:32 Assessment/Plan Assessment/Plan Chief Complaint/Hosp Course 1. Recurrent hyponatremia, better from 122 to 131 2. Urinary tract infection. 3. Congestive heart failure, systolic and chronic EF 35% by echo this admit. 4. History of cardiomyopathy, decreased ejection fraction. 5. Status post AICD generator change. 6. Pleural effusion, recurrent, status post PleurX. 7. Metastatic breast carcinoma. 8. Hypoxia. 9. Sinus tachycardia. 10 Sepsis Problems: Additional Assessment/Plan 1. continue treatment Consultation Date/Type/Reason Admit Date/Time Mar 08, 2017 at 22:13 Initial Consult Date 03/17/17 Type of Consultation: nephrology Reason for Consultation Dr Boss Referring Provider: GARY CROSS MD Exam/Review of Systems Vital Signs Vitals Vital Signs Date Time Temp Pulse Resp B/P Pulse Ox O2 Delivery O2 Flow Rate FiO2 03/25/17 12:03 108 03/25/17 11:53 97.4 17 99/55 92 03/25/17 08:30 Nasal Cannula 6.0 Intake and Output 03/24/17 03/24/17 03/25/17 14:59 22:59 06:59 Intake Total 700 ml 700 ml Balance 700 ml 700 ml Exam pale Neck: supple Respiratory: diminished breath sounds Cardiovascular: regular rate and rhythm Results Result Diagram: 03/24/17 1932 03/25/17 1042 Results 24 hrs Laboratory Tests Test 03/24/17 19:32 03/25/17 10:42 White Blood Count 15.9 H Red Blood Count 3.31 L Hemoglobin 9.8 L Hematocrit 30.4 L Mean Corpuscular Volume 91.8 Mean Corpuscular Hemoglobin 29.6 Mean Corpuscular Hemoglobin Concent 32.2 Red Cell Distribution Width 16.9 H Platelet Count 285 # Mean Platelet Volume 11.2 H Neutrophils % Segmented Neutrophils % (Manual) 92 H Band Neutrophils % (Manual) 2 Lymphocytes % Lymphocytes % (Manual) 2 L Monocytes % Monocytes % (Manual) 2 Eosinophils % Basophils % Metamyelocytes % (manual) 2 H Nucleated Red Blood Cells % 0.0 Neutrophils # Neutrophils # (Manual) 14.7 H Band Neutrophils # 0.3 Absolute Lymphocytes (Manual) 0.3 L Lymphocytes # Monocytes # Absolute Monocytes (Manual) 0.3 Eosinophils # Basophils # Metamyelocytes # 0.3 H Nucleated Red Blood Cells # Platelet Estimate NORMAL Polychromasia 1+ Poikilocytosis 1+ Sodium Level 133 L Potassium Level 5.5 H 5.2 H Chloride Level 91 L Carbon Dioxide Level 33 H Anion Gap 15 Blood Urea Nitrogen 28 H Creatinine 0.84 Glucose Level 174 Calcium Level 8.4 Medications Medications Current Medications Ondansetron HCl/ Dextrose (Zofran Inj/D5W) 54 ml @ 108 mls/hr Q6H PRN IV NAUSEA AND/OR VOMITING Last administered on 03/12/17 12:57; Admin Dose 108 MLS /HR; Start 03/09/17 at 02:30 Aspirin (Halfprin) 81 mg DAILY PO Last administered on 03/25/17 09:28; Admin Dose 81 MG; Start 03/09/17 at 12:30 Atorvastatin Calcium (Lipitor) 20 mg HS PO Last administered on 03/24/17 21: 22; Admin Dose 20 MG; Start 03/09/17 at 21:00 Digoxin (Digoxin) 0.125 mg DAILY@13 PO Last administered on 03/25/17 12:07; Admin Dose 0.125 MG; Start 03/09/17 at 13:00 Lorazepam (Ativan) 0.5 mg Q8H PRN PO ANXIETY Last administered on 03/25/17 12 :03; Admin Dose 0.5 MG; Start 03/09/17 at 12:30 Ondansetron HCl (Zofran Tab) 4 mg Q6H PRN PO NAUSEA AND/OR VOMITING; Start 03/09/17 at 12:30 Acetaminophen/ Hydrocodone Bitart ([place] (5/325)) 1 tab Q6H PRN PO PAIN LEVEL 6 -10 Last administered on 03/15/17 20:53; Admin Dose 1 TAB; Start 03/09/17 at 12:30 Bisacodyl (Dulcolax) 5 mg DAILY PRN PO CONSTIPATION; Start 03/09/17 at 12:30 Enoxaparin Sodium (Lovenox) 40 mg DAILY SC Last administered on 03/25/17 09: 34; Admin Dose 40 MG; Start 03/11/17 at 17:00 Vitamin A/Vitamin D (Vitamin A & D Oint) 1 applic BID TOP Last administered on 03/25/17 09:28; Admin Dose 1 APPLIC; Start 03/15/17 at 14:00 Midodrine (Proamatine) 2.5 mg TID@,,17 PO Last administered on 03/25/17 12:07; Admin Dose 2.5 MG; Start 03/17/17 at 09:00 Levofloxacin (Levaquin) 500 mg DAILY@06 PO Last administered on 03/25/17 05: 25; Admin Dose 500 MG; Start 03/17/17 at 19:00 Metoclopramide HCl (Reglan Liq) 10 mg Q6H GTB Last administered on 03/25/17 09:28; Admin Dose 10 MG; Start 03/18/17 at 16:00 Pantoprazole (Protonix Tab) 40 mg DAILY@06 PO Last administered on 03/25/17 05:25; Admin Dose 40 MG; Start 03/19/17 at 06:00 Carvedilol (Coreg) 6.25 mg BID PO Last administered on 03/24/17 21:23; Admin Dose 6.25 MG; Start 03/20/17 at 21:00 Morphine Sulfate (morphine) 2 mg Q4H PRN IV PAIN LEVEL 4-6 Last administered on 03/20/17 14:48; Admin Dose 2 MG; Start 03/20/17 at 14:30 Lorazepam (Ativan) 0.5 mg TID PRN PEG anxiety Last administered on 03/25/17 05:12; Admin Dose 0.5 MG; Start 03/20/17 at 15:30 Sodium Polystyrene Sulfonate (Kayexalate) 30 gm ONCE ONCE PO ; Start 03/25/17 at 12:30; Stop 03/25/17 at 12:31 SHIN BARNEY MD 03/25/17 1649: Assessment/Plan Assessment/Plan Additional Assessment/Plan Hyperkalemia? etiolgy strict i/o kayexalxte prn check digoxin levels Exam/Review of Systems Results Result Diagram: 03/24/17 19303/25/17 1042 GEORGE BISHOP Mar 25, 2017 12:34 SHIN BARNEY MD Mar 25, 2017 16:49
--- NOTE | 2017-03-25 12:39 | PN ---
Date/Time of Note Date/Time of Note DATE: 03/25/17 TIME: 12:36 Assessment/Plan VTE Prophylaxis VTE Prophylaxis Intervention: SCD's Lines/Catheters IV Catheter Type (from [facility]): [place] Urinary Cath still in place: No Assessment/Plan Chief Complaint/Hosp Course s: 11.22: still sob 11.23: sleeping, less sob 11.24: restless, but sleeping now, no pleurx drainage 11.25 pleurx drained 250cc overnight, can not replace/adjust per radiology o: General: patient resting, mild distress due to palpitations Head: Normocephalic atraumatic Eyes: EOMI, pupils reactive to light Neck: Supple, nontender, midline Respiratory: crackles at bases bilaterally Cardiovascular: irregular rhythm, tachycardia, no obvious murmurs Gastrointestinal: non-tender to palpation, bowel sounds heard. Neurological: Moves all extremities spontaneously Patient is a 81-year-old female who recently was discharged 2 days prior to previous admission, however patient's half-way facility unit on oxygen and patient went into acute respiratory failure, and was sent to local ICU, transferred for insurance reasons. Assessment/Plan #palpitations -persistent -cardiology recs appreciated -multifactorial issues #. Acute on chronic respiratory failure secondary pleural effusions - abx stopped, unlikely PNA source, patient doing well - Will continue on NC and wean as tolerated to maintain O2 >90% - Pulmonology consulted and recommendations appreciated. Continue on daily pleurx drainage at night, too many small pockets for adjustment to be made. - Bronchodilators #. Elevated troponin -mild, cardiology aware, no intervention -no chest pain #[place] UTI -patient and patient's family did not want to treat with antifungal at this time -monitor for now as patient is asymptomatic #. Dysphagia - GI reconsulted and recommendations appreciated - PEG tubed and tolerating tube feeds well. Pleasure feeds as well as tolerated -scheduled reglan #. Bilateral pleural effusions, malignant per path report in january, breast CA. - Pulmonology on board. Will need daily to q 3day pleurx drainage. - Continue on NC and wean as tolerating to keep saturations >90% #. Tachycardia - Cardiology on board and consultation appreciated - On Digoxin and coreg #. Hyponatremia - improved - Nephrology on board recs appreciated - No acute symptoms - monitor #. Cardiomyopathy, congestive heart failure, acute on chronic ejection fraction 45% - Cardiology on board and recommendations appreciated. - Continue statin, asa, coreg as tolerated - ICD battery change done #. 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 Merlos, oncology, outpatient. States patient is stage IV and not appropriate to continue chemotherapy at this time. Recommending Palliative care at this time. - Spoke with Family and they are not satisfied with plan and would like to continue to pursue treatment once patient discharged - Dr. Ray offered secondary opinion and agrees with Dr. Merlos in that patient is too debilitated to undergo chemotherapy #. Anemia of chronic disease - currently stable - will continue monitoring #. Disposition - patient's family appears to want comfort care, but not traditional hospice, they would like transfer to a facility that would still perform workup on the patient. appears patient's family is leaning towards SNF transfer -looking for proper SNF, Dr. Anderson to speak with other son, as requested per family, about the details of hospice.(what they can and can not perform). Problems: Exam/Review of Systems Vital Signs Vitals Vital Signs Date Time Temp Pulse Resp B/P Pulse Ox O2 Delivery O2 Flow Rate FiO2 03/25/17 12:03 108 03/25/17 11:53 97.4 17 99/55 92 03/25/17 08:30 Nasal Cannula 6.0 Intake and Output 03/24/17 03/24/17 03/25/17 15:00 23:00 07:00 Intake Total 700 ml 700 ml Balance 700 ml 700 ml Results Result Diagram: 03/24/17 1932 03/25/17 1042 Results 24 hrs Laboratory Tests Test 03/24/17 19:32 03/25/17 10:42 White Blood Count 15.9 H Red Blood Count 3.31 L Hemoglobin 9.8 L Hematocrit 30.4 L Mean Corpuscular Volume 91.8 Mean Corpuscular Hemoglobin 29.6 Mean Corpuscular Hemoglobin Concent 32.2 Red Cell Distribution Width 16.9 H Platelet Count 285 # Mean Platelet Volume 11.2 H Neutrophils % Segmented Neutrophils % (Manual) 92 H Band Neutrophils % (Manual) 2 Lymphocytes % Lymphocytes % (Manual) 2 L Monocytes % Monocytes % (Manual) 2 Eosinophils % Basophils % Metamyelocytes % (manual) 2 H Nucleated Red Blood Cells % 0.0 Neutrophils # Neutrophils # (Manual) 14.7 H Band Neutrophils # 0.3 Absolute Lymphocytes (Manual) 0.3 L Lymphocytes # Monocytes # Absolute Monocytes (Manual) 0.3 Eosinophils # Basophils # Metamyelocytes # 0.3 H Nucleated Red Blood Cells # Platelet Estimate NORMAL Polychromasia 1+ Poikilocytosis 1+ Sodium Level 133 L Potassium Level 5.5 H 5.2 H Chloride Level 91 L Carbon Dioxide Level 33 H Anion Gap 15 Blood Urea Nitrogen 28 H Creatinine 0.84 Glucose Level 174 Calcium Level 8.4 Medications Medications Current Medications Ondansetron HCl/ Dextrose (Zofran Inj/D5W) 54 ml @ 108 mls/hr Q6H PRN IV NAUSEA AND/OR VOMITING Last administered on 03/12/17 12:57; Admin Dose 108 MLS /HR; Start 03/09/17 at 02:30 Aspirin (Halfprin) 81 mg DAILY PO Last administered on 03/25/17 09:28; Admin Dose 81 MG; Start 03/09/17 at 12:30 Atorvastatin Calcium (Lipitor) 20 mg HS PO Last administered on 03/24/17 21: 22; Admin Dose 20 MG; Start 03/09/17 at 21:00 Digoxin (Digoxin) 0.125 mg DAILY@13 PO Last administered on 03/25/17 12:07; Admin Dose 0.125 MG; Start 03/09/17 at 13:00 Lorazepam (Ativan) 0.5 mg Q8H PRN PO ANXIETY Last administered on 03/25/17 12 :03; Admin Dose 0.5 MG; Start 03/09/17 at 12:30 Ondansetron HCl (Zofran Tab) 4 mg Q6H PRN PO NAUSEA AND/OR VOMITING; Start 03/09/17 at 12:30 Acetaminophen/ Hydrocodone Bitart ([place] (5/325)) 1 tab Q6H PRN PO PAIN LEVEL 6 -10 Last administered on 03/15/17 20:53; Admin Dose 1 TAB; Start 03/09/17 at 12:30 Bisacodyl (Dulcolax) 5 mg DAILY PRN PO CONSTIPATION; Start 03/09/17 at 12:30 Enoxaparin Sodium (Lovenox) 40 mg DAILY SC Last administered on 03/25/17 09: 34; Admin Dose 40 MG; Start 03/11/17 at 17:00 Vitamin A/Vitamin D (Vitamin A & D Oint) 1 applic BID TOP Last administered on 03/25/17 09:28; Admin Dose 1 APPLIC; Start 03/15/17 at 14:00 Midodrine (Proamatine) 2.5 mg TID@,13,17 PO Last administered on 03/25/17 12:07; Admin Dose 2.5 MG; Start 03/17/17 at 09:00 Levofloxacin (Levaquin) 500 mg DAILY@06 PO Last administered on 03/25/17 05: 25; Admin Dose 500 MG; Start 03/17/17 at 19:00 Metoclopramide HCl (Reglan Liq) 10 mg Q6H GTB Last administered on 03/25/17 09:28; Admin Dose 10 MG; Start 03/18/17 at 16:00 Pantoprazole (Protonix Tab) 40 mg DAILY@06 PO Last administered on 03/25/17 05:25; Admin Dose 40 MG; Start 03/19/17 at 06:00 Carvedilol (Coreg) 6.25 mg BID PO Last administered on 03/24/17 21:23; Admin Dose 6.25 MG; Start 03/20/17 at 21:00 Morphine Sulfate (morphine) 2 mg Q4H PRN IV PAIN LEVEL 4-6 Last administered on 03/20/17 14:48; Admin Dose 2 MG; Start 03/20/17 at 14:30 Lorazepam (Ativan) 0.5 mg TID PRN PEG anxiety Last administered on 03/25/17 05:12; Admin Dose 0.5 MG; Start 03/20/17 at 15:30 DIMA COVARRUBIAS Mar 25, 2017 12:39
[2017-03-25] MEDS: ATORVASTATIN 20 MG TAB PO SCH (21:12)
[2017-03-26] VITALS (13 sets, daily range): BP systolic 93–102; BP diastolic 46–59; PULSE 109–140; RESP 18–22
[2017-03-26] MEDS: LORAZEPAM 0.5 MG TAB PO PRN ×2 (00:24→11:37)
[2017-03-26] MEDS: LEVOFLOXACIN 500 MG TAB PO SCH (05:09)
[2017-03-26] MEDS: PANTOPRAZOLE (EC) 40 MG TAB PO SCH (05:09)
[2017-03-26] MEDS: METOCLOPRAMIDE (1 MG/ML) 10 ML CUP GTB SCH ×4 (05:09→20:04)
[2017-03-26] MEDS: LORAZEPAM 0.5 MG TAB PEG PRN ×2 (06:45→17:31)
[2017-03-26] MEDS: ALBUTEROL/IPRATROPIUM (NEB) 3 ML AMP HHN SCH ×3 (07:55→20:00)
[2017-03-26 08:50] LABS: ABNORMAL IP MESSAGE 1; BASOPHILS % 0.1 % (0.0-2.0); EOSINOPHILS % 0.1 % (0.0-7.0); HEMATOCRIT 31.2 % (37.0-47.0); HEMOGLOBIN 9.9 g/dl (12.0-16.0); LYMPHOCYTES # 0.1 10^3/ul (0.8-2.9); LYMPHOCYTES % 0.6 % (15.0-51.0); MEAN CORPUSCULAR HEMOGLOBIN 29.5 pg (29.0-33.0); MEAN CORPUSCULAR HGB CONC 31.7 g/dl (32.0-37.0); MEAN CORPUSCULAR VOLUME 92.9 fl (82.0-101.0); MONOCYTE # 1.2 10^3/ul (0.3-0.9); MONOCYTES % 6.7 % (0.0-11.0); NEUTROPHIL # 15.9 10^3/ul (1.6-7.5); NEUTROPHILS % 90.4 % (39.0-77.0); PLATELET COUNT 292 10^3/UL (140-415); RED BLOOD COUNT 3.36 10^6/ul (4.20-5.40); RED CELL DISTRIBUTION WIDTH 17.3 % (11.5-14.5); WHITE BLOOD COUNT 17.5 10^3/ul (4.8-10.8)
[2017-03-26 08:56] LABS: POSITIVE DIFF @See below
[2017-03-26 09:21] LABS: CALCIUM 8.3 mg/dl (8.4-10.2); CREATININE 0.87 mg/dl (0.44-1.00); MAGNESIUM 2.1 mg/dl (1.7-2.5); PHOSPHORUS 5.8 mg/dl (2.5-4.9); POTASSIUM 4.4 mmol/L (3.5-5.1)
--- NOTE | 2017-03-26 10:35 | CONS ---
Date/Time of Note Date/Time of Note DATE: 03/26/17 TIME: 10:33 Assessment/Plan Assessment/Plan Additional Assessment/Plan 1. Congestive heart failure exacerbation-systolic acute on chronic EF 35%by echo this admit - con't to keep euvolemic. NO change. STABLE. Reasonable fluid status. 2. History of cardiomyopathy, decreased left ventricular ejection fraction. 35 % by echo this admit - BiV ICD in place. - no ectopy on tele 3. Status post recent automatic implantable cardioverter-defibrillator generator change.Site lookswell. 4. Pleural effusions, recurrent, status post PleurX catheter- still with fluid retention, malignant. POOR prognosis. REACCUMULATED - plan to remove more fluid now. Effusion Rx noted. 5. Metastatic breast carcinoma- Stage IV, onc follows. 6. Hypoxia, improved. 7. Tachycardia consistent with sinus tachycardia- treat underlined dz. DIFFICULT TO RX - suspect pulmonary infection. 8. Hypotension-borderline 9. HYponatremia-slowly improving with IVF Consultation Date/Type/Reason Admit Date/Time Mar 08, 2017 at 22:13 Type of Consultation: nephrology Referring Provider: GARY CROSS MD 24 HR Interval Summary Free Text/Dictation Tachycardia consistent with sinus tachycardia- treat underlined dz. DIFFICULT TO RX - suspect pulmonary infection. ROS: No fever, no chills, no nausea, no vomiting, no diarrhea/constipation No recent weight changes No chest pain, no PND, no orthopnea + SOB, feels tired No dizziness, blurred vision No thirst, no heat or cold intolerance Exam/Review of Systems Vital Signs Vitals Vital Signs Date Time Temp Pulse Resp B/P Pulse Ox O2 Delivery O2 Flow Rate FiO2 03/26/17 08:10 132 03/26/17 07:55 30 92 Nasal Cannula 6.0 03/26/17 07:13 97.6 102/59 Intake and Output 03/25/17 03/25/17 03/26/17 14:59 22:59 06:59 Intake Total 1100 ml 350 ml Output Total 200 ml Balance 900 ml 350 ml Exam General: WN/WD/NAD, AOx 2-3 [place] HEENT: Unicetric/atraumatic/EOMI (follow commands) NECK: JVD elevated, no thyromegaly Lymph: no lymphadenopathy HEART: regular with no S3, II/ systolic murmur at apex LUNGS: Coarse sounds ABD: soft, NT, ND, +BS : Intact Neuro: non focal SKIN: chronic changes EXT: trace edema Results Result Diagram: 03/26/17 0816 03/26/17 0816 Results 24 hrs Laboratory Tests Test 03/25/17 10:42 03/25/17 16:06 03/26/17 08:16 Potassium Level 5.2 H 4.4 Digoxin Level 1.7 White Blood Count 17.5 H Red Blood Count 3.36 L Hemoglobin 9.9 L Hematocrit 31.2 L Mean Corpuscular Volume 92.9 Mean Corpuscular Hemoglobin 29.5 Mean Corpuscular Hemoglobin Concent 31.7 L Red Cell Distribution Width 17.3 H Platelet Count 292 Mean Platelet Volume 11.0 H Neutrophils % 90.4 H Lymphocytes % 0.6 L Monocytes % 6.7 Eosinophils % 0.1 Basophils % 0.1 Nucleated Red Blood Cells % 0.0 Neutrophils # 15.9 H Lymphocytes # 0.1 L Monocytes # 1.2 H Eosinophils # 0.0 Basophils # 0.0 Nucleated Red Blood Cells # 0.0 Sodium Level 136 Chloride Level 93 L Carbon Dioxide Level 31 Anion Gap 16 Blood Urea Nitrogen 31 H Creatinine 0.87 Glucose Level 219 Calcium Level 8.3 L Phosphorus Level 5.8 H Magnesium Level 2.1 Medications Medications Current Medications Ondansetron HCl/ Dextrose (Zofran Inj/D5W) 54 ml @ 108 mls/hr Q6H PRN IV NAUSEA AND/OR VOMITING Last administered on 03/12/17 12:57; Admin Dose 108 MLS /HR; Start 03/09/17 at 02:30 Aspirin (Halfprin) 81 mg DAILY PO Last administered on 03/25/17 09:28; Admin Dose 81 MG; Start 03/09/17 at 12:30 Atorvastatin Calcium (Lipitor) 20 mg HS PO Last administered on 03/25/17 21: 12; Admin Dose 20 MG; Start 03/09/17 at 21:00 Digoxin (Digoxin) 0.125 mg DAILY@13 PO Last administered on 03/25/17 12:07; Admin Dose 0.125 MG; Start 03/09/17 at 13:00 Lorazepam (Ativan) 0.5 mg Q8H PRN PO ANXIETY Last administered on 03/26/17 00 :24; Admin Dose 0.5 MG; Start 03/09/17 at 12:30 Ondansetron HCl (Zofran Tab) 4 mg Q6H PRN PO NAUSEA AND/OR VOMITING; Start 03/09/17 at 12:30 Acetaminophen/ Hydrocodone Bitart ([place] (5/325)) 1 tab Q6H PRN PO PAIN LEVEL 6 -10 Last administered on 03/15/17 20:53; Admin Dose 1 TAB; Start 03/09/17 at 12:30 Bisacodyl (Dulcolax) 5 mg DAILY PRN PO CONSTIPATION; Start 03/09/17 at 12:30 Enoxaparin Sodium (Lovenox) 40 mg DAILY SC Last administered on 03/25/17 09: 34; Admin Dose 40 MG; Start 03/11/17 at 17:00 Vitamin A/Vitamin D (Vitamin A & D Oint) 1 applic BID TOP Last administered on 03/25/17 21:13; Admin Dose 1 APPLIC; Start 03/15/17 at 14:00 Midodrine (Proamatine) 2.5 mg TID@,,17 PO Last administered on 03/25/17 18:06; Admin Dose 2.5 MG; Start 03/17/17 at 09:00 Levofloxacin (Levaquin) 500 mg DAILY@06 PO Last administered on 03/26/17 05: 09; Admin Dose 500 MG; Start 03/17/17 at 19:00 Metoclopramide HCl (Reglan Liq) 10 mg Q6H GTB Last administered on 03/26/17 05:09; Admin Dose 10 MG; Start 03/18/17 at 16:00 Pantoprazole (Protonix Tab) 40 mg DAILY@06 PO Last administered on 03/26/17 05:09; Admin Dose 40 MG; Start 03/19/17 at 06:00 Carvedilol (Coreg) 6.25 mg BID PO Last administered on 03/25/17 21:13; Admin Dose 6.25 MG; Start 03/20/17 at 21:00 Morphine Sulfate (morphine) 2 mg Q4H PRN IV PAIN LEVEL 4-6 Last administered on 03/20/17 14:48; Admin Dose 2 MG; Start 03/20/17 at 14:30 Lorazepam (Ativan) 0.5 mg TID PRN PEG anxiety Last administered on 11/26/17at 06:45; Admin Dose 0.5 MG; Start 03/20/17 at 15:30 STEFANY BOYCE MD Mar 26, 2017 10:34
[2017-03-26] MEDS: ASPIRIN (EC) 81 MG TAB PO SCH (11:37)
[2017-03-26] MEDS: MIDODRINE 2.5 MG TAB PO SCH ×3 (11:37→17:31)
[2017-03-26] MEDS: VITAMIN A & D 5 GM OINT PACKET TOP SCH ×2 (11:37→20:04)
[2017-03-26] MEDS: ENOXAPARIN 40 MG/0.4 ML SYG SC SCH (11:45)
--- NOTE | 2017-03-26 12:07 | CONS ---
Date/Time of Note Date/Time of Note DATE: 03/26/17 TIME: 12:06 Consult Date/Type/Reason Admit Date/Time Mar 08, 2017 at 22:13 Type of Consultation: Pulmonary Ordering Provider: GARY CROSS MD Subjective Patient appears comfortable this morning. No new events. Objective Vital Signs Date Time Temp Pulse Resp B/P Pulse Ox O2 Delivery O2 Flow Rate FiO2 03/26/17 11:11 97.8 135 20 99/55 90 03/26/17 07:55 Nasal Cannula 6.0 Intake and Output 03/25/17 03/25/17 03/26/17 15:00 23:00 07:00 Intake Total 1100 ml 350 ml Output Total 200 ml Balance 900 ml 350 ml Exam GENERAL: Currently ill-appearing lady comfortable at rest no acute distress VITAL SIGNS: per chart NECK: Supple. No JVD or lymphadenopathy. CARDIAC EXAM: S1, S2. No added sounds or murmurs. CHEST: Diminished air entry bilaterally with rales right base. ABDOMEN: Soft, nontender. No guarding or rebound. EXTREMITIES: No cyanosis, clubbing or edema. NEUROLOGIC: Generalized weakness. No focal deficits. Results/Medications Result Diagram: 03/26/17 0816 03/26/17 0816 Results 24 hrs Laboratory Tests Test 03/25/17 16:06 03/26/17 08:16 Digoxin Level 1.7 White Blood Count 17.5 H Red Blood Count 3.36 L Hemoglobin 9.9 L Hematocrit 31.2 L Mean Corpuscular Volume 92.9 Mean Corpuscular Hemoglobin 29.5 Mean Corpuscular Hemoglobin Concent 31.7 L Red Cell Distribution Width 17.3 H Platelet Count 292 Mean Platelet Volume 11.0 H Neutrophils % 90.4 H Lymphocytes % 0.6 L Monocytes % 6.7 Eosinophils % 0.1 Basophils % 0.1 Nucleated Red Blood Cells % 0.0 Neutrophils # 15.9 H Lymphocytes # 0.1 L Monocytes # 1.2 H Eosinophils # 0.0 Basophils # 0.0 Nucleated Red Blood Cells # 0.0 Sodium Level 136 Potassium Level 4.4 Chloride Level 93 L Carbon Dioxide Level 31 Anion Gap 16 Blood Urea Nitrogen 31 H Creatinine 0.87 Glucose Level 219 Calcium Level 8.3 L Phosphorus Level 5.8 H Magnesium Level 2.1 Medications Current Medications Ondansetron HCl/ Dextrose (Zofran Inj/D5W) 54 ml @ 108 mls/hr Q6H PRN IV NAUSEA AND/OR VOMITING Last administered on 03/12/17 12:57; Admin Dose 108 MLS /HR; Start 03/09/17 at 02:30 Aspirin (Halfprin) 81 mg DAILY PO Last administered on 03/26/17 11:37; Admin Dose 81 MG; Start 03/09/17 at 12:30 Atorvastatin Calcium (Lipitor) 20 mg HS PO Last administered on 03/25/17 21: 12; Admin Dose 20 MG; Start 03/09/17 at 21:00 Digoxin (Digoxin) 0.125 mg DAILY@13 PO Last administered on 03/25/17 12:07; Admin Dose 0.125 MG; Start 03/09/17 at 13:00 Lorazepam (Ativan) 0.5 mg Q8H PRN PO ANXIETY Last administered on 03/26/17 11 :37; Admin Dose 0.5 MG; Start 03/09/17 at 12:30 Ondansetron HCl (Zofran Tab) 4 mg Q6H PRN PO NAUSEA AND/OR VOMITING; Start 03/09/17 at 12:30 Acetaminophen/ Hydrocodone Bitart ([place] (5/325)) 1 tab Q6H PRN PO PAIN LEVEL 6 -10 Last administered on 03/15/17 20:53; Admin Dose 1 TAB; Start 03/09/17 at 12:30 Bisacodyl (Dulcolax) 5 mg DAILY PRN PO CONSTIPATION; Start 03/09/17 at 12:30 Enoxaparin Sodium (Lovenox) 40 mg DAILY SC Last administered on 03/26/17 11: 45; Admin Dose 40 MG; Start 03/11/17 at 17:00 Vitamin A/Vitamin D (Vitamin A & D Oint) 1 applic BID TOP Last administered on 03/26/17 11:37; Admin Dose 1 APPLIC; Start 03/15/17 at 14:00 Midodrine (Proamatine) 2.5 mg TID@,,17 PO Last administered on 03/26/17 11:37; Admin Dose 2.5 MG; Start 03/17/17 at 09:00 Levofloxacin (Levaquin) 500 mg DAILY@06 PO Last administered on 03/26/17 05: 09; Admin Dose 500 MG; Start 03/17/17 at 19:00 Metoclopramide HCl (Reglan Liq) 10 mg Q6H GTB Last administered on 03/26/17 11:38; Admin Dose 10 MG; Start 03/18/17 at 16:00 Pantoprazole (Protonix Tab) 40 mg DAILY@06 PO Last administered on 03/26/17 05:09; Admin Dose 40 MG; Start 03/19/17 at 06:00 Carvedilol (Coreg) 6.25 mg BID PO Last administered on 03/26/17 11:38; Admin Dose 6.25 MG; Start 03/20/17 at 21:00 Morphine Sulfate (morphine) 2 mg Q4H PRN IV PAIN LEVEL 4-6 Last administered on 03/20/17 14:48; Admin Dose 2 MG; Start 03/20/17 at 14:30 Lorazepam (Ativan) 0.5 mg TID PRN PEG anxiety Last administered on 03/26/17 06:45; Admin Dose 0.5 MG; Start 03/20/17 at 15:30 Assessment/Plan Chief Complaint/Hosp Course Assessment 1. 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 Bilateral Pleurx catheters in place. Will need adjustment of right Pleurx catheter to adequately drain pleural effusion. 2. Persistent leukocytosis concerning for underlying infection. 3. Dysphagia with decreased p.o. intake. Status post G-tube placement. 4. Persistent tachycardia likely secondary to underlying malignancy and possible volume depletion. Plan 1. Continue daily Pleurx catheter drainage daily. Pleurx catheter to be revised by radiology this morning. 2. Pain control and anxiolytics 3. Continue antibiotics. 4. Continue tube feeding Discussed complex problems with patient's son at bedside. Explained that patient is not a surgical candidate for VATS pleurodesis. In addition chest tube may not improve her quality of life. Would recommend continuing daily drainage of current Pleurx catheters. Focus on comfort care. Discussed with patient's son this morning. Agree with inpatient hospice eval. Problems: STAN MAC MD, [facility] Mar 26, 2017 12:07
--- NOTE | 2017-03-26 12:13 | PN ---
Date/Time of Note Date/Time of Note DATE: 03/26/17 TIME: 12:11 Assessment/Plan VTE Prophylaxis VTE Prophylaxis Intervention: ambulation, SCD's Lines/Catheters IV C[facility]ter Type (from [facility] [place] Urinary Cath still in place: No Assessment/Plan Chief Complaint/Hosp Course s: 11.22: still sob 11.23: sleeping, less sob 11.24: restless, but sleeping now, no pleurx drainage 11.25 pleurx drained 250cc overnight, can not replace/adjust per radiology 11.26: worsening tachycardia and symptoms overnight o: General: patient resting, mild distress due to palpitations Head: Normocephalic atraumatic Eyes: EOMI, pupils reactive to light Neck: Supple, nontender, midline Respiratory: crackles at bases bilaterally Cardiovascular: irregular rhythm, tachycardia, no obvious murmurs Gastrointestinal: non-tender to palpation, bowel sounds heard. Neurological: Moves all extremities spontaneously Patient is a 81-year-old female who recently was discharged 2 days prior to previous admission, however patient's retirement facility unit on oxygen and patient went into acute respiratory failure, and was sent to local ICU, transferred for insurance reasons. Assessment/Plan #palpitations -persistent -cardiology recs appreciated -multifactorial issues -? infectious standpoint, unlikely, but will order culture of drainage and start abx #. Acute on chronic respiratory failure secondary pleural effusions - abx stopped, unlikely PNA source, patient doing well - Will continue on NC and wean as tolerated to maintain O2 >90% - Pulmonology consulted and recommendations appreciated. Continue on daily pleurx drainage at night, too many small pockets for adjustment to be made. - Bronchodilators #. Elevated troponin -mild, cardiology aware, no intervention -no chest pain #[place] UTI -patient and patient's family did not want to treat with antifungal at this time -monitor for now as patient is asymptomatic #. Dysphagia - GI reconsulted and recommendations appreciated - PEG tubed and tolerating tube feeds well. Pleasure feeds as well as tolerated -scheduled reglan #. Bilateral pleural effusions, malignant per path report in january, breast CA. - Pulmonology on board. Will need daily to q 3day pleurx drainage. - Continue on NC and wean as tolerating to keep saturations >90% #. Tachycardia - Cardiology on board and consultation appreciated - On Digoxin and coreg #. Hyponatremia - improved - Nephrology on board recs appreciated - No acute symptoms - monitor #. Cardiomyopathy, congestive heart failure, acute on chronic ejection fraction 45% - Cardiology on board and recommendations appreciated. - Continue statin, asa, coreg as tolerated - ICD battery change done #. 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 Merlos, oncology, outpatient. States patient is stage IV and not appropriate to continue chemotherapy at this time. Recommending Palliative care at this time. - Spoke with Family and they are not satisfied with plan and would like to continue to pursue treatment once patient discharged - Dr. Ray offered secondary opinion and agrees with Dr. Merlos in that patient is too debilitated to undergo chemotherapy #. Anemia of chronic disease - currently stable - will continue monitoring #. Disposition - patient's family appears to want comfort care, but not traditional hospice, they would like transfer to a facility that would still perform workup on the patient. appears patient's family is leaning towards SNF transfer -looking for proper SNF, Dr. Anderson to speak with other son, as requested per family, about the details of hospice.(what they can and can not perform). Problems: Exam/Review of Systems Vital Signs Vitals Vital Signs Date Time Temp Pulse Resp B/P Pulse Ox O2 Delivery O2 Flow Rate FiO2 03/26/17 11:11 97.8 135 20 99/55 90 03/26/17 07:55 Nasal Cannula 6.0 Intake and Output 03/25/17 03/25/17 03/26/17 14:59 22:59 06:59 Intake Total 1100 ml 350 ml Output Total 200 ml Balance 900 ml 350 ml Results Result Diagram: 03/26/17 0816 03/26/17 0816 Results 24 hrs Laboratory Tests Test 03/25/17 16:06 03/26/17 08:16 Digoxin Level 1.7 White Blood Count 17.5 H Red Blood Count 3.36 L Hemoglobin 9.9 L Hematocrit 31.2 L Mean Corpuscular Volume 92.9 Mean Corpuscular Hemoglobin 29.5 Mean Corpuscular Hemoglobin Concent 31.7 L Red Cell Distribution Width 17.3 H Platelet Count 292 Mean Platelet Volume 11.0 H Neutrophils % 90.4 H Lymphocytes % 0.6 L Monocytes % 6.7 Eosinophils % 0.1 Basophils % 0.1 Nucleated Red Blood Cells % 0.0 Neutrophils # 15.9 H Lymphocytes # 0.1 L Monocytes # 1.2 H Eosinophils # 0.0 Basophils # 0.0 Nucleated Red Blood Cells # 0.0 Sodium Level 136 Potassium Level 4.4 Chloride Level 93 L Carbon Dioxide Level 31 Anion Gap 16 Blood Urea Nitrogen 31 H Creatinine 0.87 Glucose Level 219 Calcium Level 8.3 L Phosphorus Level 5.8 H Magnesium Level 2.1 Medications Medications Current Medications Ondansetron HCl/ Dextrose (Zofran Inj/D5W) 54 ml @ 108 mls/hr Q6H PRN IV NAUSEA AND/OR VOMITING Last administered on 03/12/17 12:57; Admin Dose 108 MLS /HR; Start 03/09/17 at 02:30 Aspirin (Halfprin) 81 mg DAILY PO Last administered on 03/26/17 11:37; Admin Dose 81 MG; Start 03/09/17 at 12:30 Atorvastatin Calcium (Lipitor) 20 mg HS PO Last administered on 03/25/17 21: 12; Admin Dose 20 MG; Start 03/09/17 at 21:00 Digoxin (Digoxin) 0.125 mg DAILY@13 PO Last administered on 03/25/17 12:07; Admin Dose 0.125 MG; Start 03/09/17 at 13:00 Lorazepam (Ativan) 0.5 mg Q8H PRN PO ANXIETY Last administered on 03/26/17 11 :37; Admin Dose 0.5 MG; Start 03/09/17 at 12:30 Ondansetron HCl (Zofran Tab) 4 mg Q6H PRN PO NAUSEA AND/OR VOMITING; Start 03/09/17 at 12:30 Acetaminophen/ Hydrocodone Bitart ([place] (5/325)) 1 tab Q6H PRN PO PAIN LEVEL 6 -10 Last administered on 03/15/17 20:53; Admin Dose 1 TAB; Start 03/09/17 at 12:30 Bisacodyl (Dulcolax) 5 mg DAILY PRN PO CONSTIPATION; Start 03/09/17 at 12:30 Enoxaparin Sodium (Lovenox) 40 mg DAILY SC Last administered on 03/26/17 11: 45; Admin Dose 40 MG; Start 03/11/17 at 17:00 Vitamin A/Vitamin D (Vitamin A & D Oint) 1 applic BID TOP Last administered on 03/26/17 11:37; Admin Dose 1 APPLIC; Start 03/15/17 at 14:00 Midodrine (Proamatine) 2.5 mg TID@,,17 PO Last administered on 03/26/17 11:37; Admin Dose 2.5 MG; Start 03/17/17 at 09:00 Levofloxacin (Levaquin) 500 mg DAILY@06 PO Last administered on 03/26/17 05: 09; Admin Dose 500 MG; Start 03/17/17 at 19:00 Metoclopramide HCl (Reglan Liq) 10 mg Q6H GTB Last administered on 03/26/17 11:38; Admin Dose 10 MG; Start 03/18/17 at 16:00 Pantoprazole (Protonix Tab) 40 mg DAILY@06 PO Last administered on 03/26/17 05:09; Admin Dose 40 MG; Start 03/19/17 at 06:00 Carvedilol (Coreg) 6.25 mg BID PO Last administered on 03/26/17 11:38; Admin Dose 6.25 MG; Start 03/20/17 at 21:00 Morphine Sulfate (morphine) 2 mg Q4H PRN IV PAIN LEVEL 4-6 Last administered on 03/20/17 14:48; Admin Dose 2 MG; Start 03/20/17 at 14:30 Lorazepam 0.5 mg 0.5 mg TID PRN PEG anxiety Last administered on 03/26/17 06: 45; Admin Dose 0.5 MG; Start 03/20/17 at 15:30 Piperacillin Sod/ Tazobactam Sod (Zosyn 3.375gm/ 50 ml (Pmx)) 50 ml @ 100 mls/ hr Q6 IVPB ; Start 03/26/17 at 18:00; Status DIMA FERNÁNDEZ Mar 26, 2017 12:13
[2017-03-26] MEDS ORDERED: PIPER-TAZO 2.25 GM (PMX) 50 ML IVPB SCH (12:45)
--- NOTE | 2017-03-26 12:59 | CONS ---
Date/Time of Note Date/Time of Note DATE: 03/26/17 TIME: 12:58 Assessment/Plan Assessment/Plan Chief Complaint/Hosp Course 1. Recurrent hyponatremia, better from 122 to 136 2. Urinary tract infection, resolved. 3. Congestive heart failure, systolic and chronic EF 35% by echo this admit. 4. History of cardiomyopathy, decreased ejection fraction. 5. Status post AICD generator change. 6. Pleural effusion, recurrent, status post PleurX. 7. Metastatic breast carcinoma. 8. Hypoxia. 9. Sinus tachycardia. 10 Sepsis Problems: Additional Assessment/Plan 1. optimization kidney function Consultation Date/Type/Reason Admit Date/Time Mar 08, 2017 at 22:13 Initial Consult Date 03/17/17 Type of Consultation: nephrology Reason for Consultation Dr Boss Referring Provider: GARY CROSS MD Exam/Review of Systems Vital Signs Vitals Vital Signs Date Time Temp Pulse Resp B/P Pulse Ox O2 Delivery O2 Flow Rate FiO2 03/26/17 12:21 131 03/26/17 11:11 97.8 20 99/55 90 03/26/17 07:55 Nasal Cannula 6.0 Intake and Output 03/25/17 03/25/17 03/26/17 15:00 23:00 07:00 Intake Total 1100 ml 350 ml Output Total 200 ml Balance 900 ml 350 ml Exam Constitutional: frail Neck: supple Respiratory: clear to auscultation, diminished breath sounds Gastrointestinal: soft Results Result Diagram: 03/26/17 0816 03/26/17 0816 Results 24 hrs Laboratory Tests Test 03/25/17 16:06 03/26/17 08:16 Digoxin Level 1.7 White Blood Count 17.5 H Red Blood Count 3.36 L Hemoglobin 9.9 L Hematocrit 31.2 L Mean Corpuscular Volume 92.9 Mean Corpuscular Hemoglobin 29.5 Mean Corpuscular Hemoglobin Concent 31.7 L Red Cell Distribution Width 17.3 H Platelet Count 292 Mean Platelet Volume 11.0 H Neutrophils % 90.4 H Lymphocytes % 0.6 L Monocytes % 6.7 Eosinophils % 0.1 Basophils % 0.1 Nucleated Red Blood Cells % 0.0 Neutrophils # 15.9 H Lymphocytes # 0.1 L Monocytes # 1.2 H Eosinophils # 0.0 Basophils # 0.0 Nucleated Red Blood Cells # 0.0 Sodium Level 136 Potassium Level 4.4 Chloride Level 93 L Carbon Dioxide Level 31 Anion Gap 16 Blood Urea Nitrogen 31 H Creatinine 0.87 Glucose Level 219 Calcium Level 8.3 L Phosphorus Level 5.8 H Magnesium Level 2.1 Medications Medications Current Medications Ondansetron HCl/ Dextrose (Zofran Inj/D5W) 54 ml @ 108 mls/hr Q6H PRN IV NAUSEA AND/OR VOMITING Last administered on 03/12/17 12:57; Admin Dose 108 MLS /HR; Start 03/09/17 at 02:30 Aspirin (Halfprin) 81 mg DAILY PO Last administered on 03/26/17 11:37; Admin Dose 81 MG; Start 03/09/17 at 12:30 Atorvastatin Calcium (Lipitor) 20 mg HS PO Last administered on 03/25/17 21: 12; Admin Dose 20 MG; Start 03/09/17 at 21:00 Digoxin (Digoxin) 0.125 mg DAILY@13 PO Last administered on 03/25/17 12:07; Admin Dose 0.125 MG; Start 03/09/17 at 13:00 Lorazepam (Ativan) 0.5 mg Q8H PRN PO ANXIETY Last administered on 03/26/17 11 :37; Admin Dose 0.5 MG; Start 03/09/17 at 12:30 Ondansetron HCl (Zofran Tab) 4 mg Q6H PRN PO NAUSEA AND/OR VOMITING; Start 03/09/17 at 12:30 Acetaminophen/ Hydrocodone Bitart ([place] (5/325)) 1 tab Q6H PRN PO PAIN LEVEL 6 -10 Last administered on 03/15/17 20:53; Admin Dose 1 TAB; Start 03/09/17 at 12:30 Bisacodyl (Dulcolax) 5 mg DAILY PRN PO CONSTIPATION; Start 03/09/17 at 12:30 Enoxaparin Sodium (Lovenox) 40 mg DAILY SC Last administered on 03/26/17 11: 45; Admin Dose 40 MG; Start 03/11/17 at 17:00 Vitamin A/Vitamin D (Vitamin A & D Oint) 1 applic BID TOP Last administered on 03/26/17 11:37; Admin Dose 1 APPLIC; Start 03/15/17 at 14:00 Midodrine (Proamatine) 2.5 mg TID@,13,17 PO Last administered on 03/26/17 11:37; Admin Dose 2.5 MG; Start 03/17/17 at 09:00 Levofloxacin (Levaquin) 500 mg DAILY@06 PO Last administered on 03/26/17 05: 09; Admin Dose 500 MG; Start 03/17/17 at 19:00 Metoclopramide HCl (Reglan Liq) 10 mg Q6H GTB Last administered on 03/26/17 11:38; Admin Dose 10 MG; Start 03/18/17 at 16:00 Pantoprazole (Protonix Tab) 40 mg DAILY@06 PO Last administered on 03/26/17 05:09; Admin Dose 40 MG; Start 03/19/17 at 06:00 Carvedilol (Coreg) 6.25 mg BID PO Last administered on 03/26/17 11:38; Admin Dose 6.25 MG; Start 03/20/17 at 21:00 Morphine Sulfate (morphine) 2 mg Q4H PRN IV PAIN LEVEL 4-6 Last administered on 03/20/17 14:48; Admin Dose 2 MG; Start 03/20/17 at 14:30 Lorazepam (Ativan) 0.5 mg TID PRN PEG anxiety Last administered on 03/26/17 06:45; Admin Dose 0.5 MG; Start 03/20/17 at 15:30 GEORGE BISHOP Mar 26, 2017 12:59
[2017-03-26] MEDS: DIGOXIN 0.125 MG TAB PO SCH (15:19)
[2017-03-26] MEDS: morphine 2 MG INJ IV PRN (18:52)
[2017-03-26] MEDS: ATORVASTATIN 20 MG TAB PO SCH (20:04)
[2017-03-27] VITALS (77 sets, daily range): BP systolic 73–100; BP diastolic 28–70; PULSE 82–122; RESP 12–37
[2017-03-27] MEDS ORDERED: KETOROLAC 30 MG INJ IV PRN (03:00)
[2017-03-27] MEDS: METOCLOPRAMIDE (1 MG/ML) 10 ML CUP GTB SCH ×4 (04:00→21:48)
--- NOTE | 2017-03-27 05:56 | EN ---
Date/Time of Note Date/Time of Note DATE: 03/27/17 TIME: 05:53 Event Note Medicine Medicine Event Note I was called by nursing staff about patient becoming hypotensive. Her systolic blood pressure was in the 70s and was tachycardic with a heart rate of around 120. I have talked to the son who was at the bedside who stated that the patient is DNR/DNI and would like her to remain such. Family however was willing for pressor and as such patient was transferred to ICU, mainly for pressor support. APRIL YUEN MD Mar 27, 2017 05:56
[2017-03-27] MEDS ORDERED: NORepinephrine 8MG/250 ML (PMX 250 ML ONE (05:58)
[2017-03-27] MEDS: LEVOFLOXACIN 500 MG TAB PO SCH (06:12)
[2017-03-27] MEDS ORDERED: LANSOPRAZOLE 30 MG CAP GTB SCH (06:13)
[2017-03-27] MEDS ORDERED: NORepinephrine 8MG/250 ML (PMX 250 ML IV SCH (06:28)
[2017-03-27] MEDS: LORAZEPAM 0.5 MG TAB PEG PRN (06:56)
[2017-03-27] MEDS: ALBUTEROL/IPRATROPIUM (NEB) 3 ML AMP HHN SCH ×3 (08:10→20:00)
[2017-03-27 08:49] LABS: ABNORMAL IP MESSAGE 1; BASOPHILS % 0.1 % (0.0-2.0); EOSINOPHILS % 0.1 % (0.0-7.0); HEMATOCRIT 32.4 % (37.0-47.0); HEMOGLOBIN 9.8 g/dl (12.0-16.0); LYMPHOCYTES # 0.2 10^3/ul (0.8-2.9); MEAN CORPUSCULAR HEMOGLOBIN 29.1 pg (29.0-33.0); MEAN CORPUSCULAR HGB CONC 30.2 g/dl (32.0-37.0); MEAN CORPUSCULAR VOLUME 96.1 fl (82.0-101.0); MEAN PLATELET VOLUME 11.1 fl (7.4-10.4); MONOCYTE # 1.7 10^3/ul (0.3-0.9); MONOCYTES % 8.3 % (0.0-11.0); NEUTROPHIL # 18.5 10^3/ul (1.6-7.5); NEUTROPHILS % 87.9 % (39.0-77.0); PLATELET COUNT 242 10^3/UL (140-415); RED BLOOD COUNT 3.37 10^6/ul (4.20-5.40); RED CELL DISTRIBUTION WIDTH 17.3 % (11.5-14.5)
[2017-03-27 08:50] LABS: POSITIVE DIFF @See below
[2017-03-27] MEDS ORDERED: ASPIRIN 81 MG TAB GTB SCH (09:00)
[2017-03-27] MEDS: MIDODRINE 2.5 MG TAB PO SCH ×3 (09:00→16:59)
[2017-03-27] MEDS: morphine 2 MG INJ IV PRN ×3 (09:06→17:38)
[2017-03-27 09:30] LABS: CALCIUM 8.1 mg/dl (8.4-10.2); CREATININE 1.08 mg/dl (0.44-1.00); MAGNESIUM 2.3 mg/dl (1.7-2.5); POTASSIUM 5.4 mmol/L (3.5-5.1)
--- NOTE | 2017-03-27 10:05 | CONS ---
Date/Time of Note Date/Time of Note DATE: 03/27/17 TIME: 10:02 Assessment/Plan Assessment/Plan Additional Assessment/Plan Patient currently on Levophed at 2 mics per minute. Assessment and recommendations; 1. Patient admitted with recurrent bilateral pleural effusion status post bilateral Pleurx catheter placement. 2. Widely metastatic breast carcinoma. 3. Progressive decline in clinical status with persistent hypotension requiring pressor support. 4. Possible pneumonia, patient status post adequate antibiotic treatment. 5. History of hypertension. I did have a detailed discussion the patient's son at bedside. Patient's son wants comfort care provision. Prognosis is poor. And hospice should be considered. Consultation Date/Type/Reason Admit Date/Time Mar 08, 2017 at 22:13 Initial Consult Date 03/14/17 Type of Consultation: Pulmonary/critical care Referring Provider: GARY CROSS MD 24 HR Interval Summary Free Text/Dictation Patient's condition is critical. Patient is getting progressively more lethargic. Still requiring pressor support for hypotension. Patient however is verbal and denies any significant pain. General exam; elderly woman, on nonrebreather mask. Awake. Exam/Review of Systems Vital Signs Vitals Vital Signs Date Time Temp Pulse Resp B/P Pulse Ox O2 Delivery O2 Flow Rate FiO2 03/27/17 08:20 115 28 93 Non Rebreather Mask 15.0 100 03/27/17 08:15 98/50 03/27/17 08:00 97.5 Intake and Output 03/26/17 03/26/17 03/27/17 15:00 23:00 07:00 Intake Total 700 ml 959.375 ml Balance 700 ml 959.375 ml Exam HEENT exam; supple neck, no JVD. No lymphadenopathy. Midline trachea. No thyromegaly. Patient is edentulous. Has bilateral intraocular lens implants. Chest exam; diminished breath sounds bilaterally. Bilateral Pleurx catheters are in place. S1-S2 audible, no murmurs. Abdomen exam; soft, scaphoid. Nontender. No organomegaly. Bowel sounds audible. Extremity exam; no peripheral edema. [employer] exam; patient awake but lethargic. Results Result Diagram: 03/27/17 0834 03/27/17 0834 Results 24 hrs Laboratory Tests Test 03/27/17 08:34 White Blood Count 21.0 H Red Blood Count 3.37 L Hemoglobin 9.8 L Hematocrit 32.4 L Mean Corpuscular Volume 96.1 Mean Corpuscular Hemoglobin 29.1 Mean Corpuscular Hemoglobin Concent 30.2 L Red Cell Distribution Width 17.3 H Platelet Count 242 Mean Platelet Volume 11.1 H Neutrophils % 87.9 H Lymphocytes % 1.0 L Monocytes % 8.3 Eosinophils % 0.1 Basophils % 0.1 Nucleated Red Blood Cells % 0.0 Neutrophils # 18.5 H Lymphocytes # 0.2 L Monocytes # 1.7 H Eosinophils # 0.0 Basophils # 0.0 Nucleated Red Blood Cells # 0.0 Sodium Level 138 Potassium Level 5.4 H Chloride Level 92 L Carbon Dioxide Level 38 H Anion Gap 13 Blood Urea Nitrogen 48 #H Creatinine 1.08 H Glucose Level 194 Calcium Level 8.1 L Phosphorus Level 7.0 H Magnesium Level 2.3 Medications Medications Current Medications Ondansetron HCl/ Dextrose (Zofran Inj/D5W) 54 ml @ 108 mls/hr Q6H PRN IV NAUSEA AND/OR VOMITING Last administered on 03/12/17 12:57; Admin Dose 108 MLS /HR; Start 03/09/17 at 02:30 Atorvastatin Calcium (Lipitor) 20 mg HS PO Last administered on 03/26/17 20: 04; Admin Dose 20 MG; Start 03/09/17 at 21:00 Digoxin (Digoxin) 0.125 mg DAILY@13 PO Last administered on 03/26/17 15:19; Admin Dose 0.125 MG; Start 03/09/17 at 13:00 Lorazepam (Ativan) 0.5 mg Q8H PRN PO ANXIETY Last administered on 03/26/17 11 :37; Admin Dose 0.5 MG; Start 03/09/17 at 12:30 Ondansetron HCl (Zofran Tab) 4 mg Q6H PRN PO NAUSEA AND/OR VOMITING; Start 03/09/17 at 12:30 Acetaminophen/ Hydrocodone Bitart ([place] (5/325)) 1 tab Q6H PRN PO PAIN LEVEL 6 -10 Last administered on 03/15/17 20:53; Admin Dose 1 TAB; Start 03/09/17 at 12:30 Bisacodyl (Dulcolax) 5 mg DAILY PRN PO CONSTIPATION; Start 03/09/17 at 12:30 Enoxaparin Sodium (Lovenox) 40 mg DAILY SC Last administered on 03/26/17 11: 45; Admin Dose 40 MG; Start 03/11/17 at 17:00 Vitamin A/Vitamin D (Vitamin A & D Oint) 1 applic BID TOP Last administered on 03/26/17 20:04; Admin Dose 1 APPLIC; Start 03/15/17 at 14:00 Midodrine (Proamatine) 2.5 mg TID@,,17 PO Last administered on 03/26/17 17:31; Admin Dose 2.5 MG; Start 03/17/17 at 09:00 Levofloxacin (Levaquin) 500 mg DAILY@06 PO Last administered on 03/27/17 06: 12; Admin Dose 500 MG; Start 03/17/17 at 19:00 Metoclopramide HCl (Reglan Liq) 10 mg Q6H GTB Last administered on 03/27/17 04:00; Admin Dose 10 MG; Start 03/18/17 at 16:00 Carvedilol (Coreg) 6.25 mg BID PO Last administered on 03/26/17 20:04; Admin Dose 6.25 MG; Start 03/20/17 at 21:00 Morphine Sulfate (morphine) 2 mg Q4H PRN IV PAIN LEVEL 4-6 Last administered on 03/27/17 09:06; Admin Dose 2 MG; Start 03/20/17 at 14:30 Lorazepam (Ativan) 0.5 mg TID PRN PEG anxiety Last administered on 03/27/17 06:56; Admin Dose 0.5 MG; Start 03/20/17 at 15:30 Ketorolac Tromethamine (Toradol) 30 mg Q6H PRN IV PAIN Last administered on 03:00; Admin Dose 30 MG; Start 03/27/17 at 03:00; Stop 03/30/17 at 02: 59 Lansoprazole 30 mg 30 mg DAILY@06 GTB Last administered on 03/27/17 06:20; Admin Dose 30 MG; Start 03/27/17 at 06:13 Norepinephrine 250 ml @ 1.875 mls/ hr TITRATE IV Last administered on 06:39; Admin Dose 1.875 MLS/HR; Start 03/27/17 at 06:28; Stop 03/27/17 at 12:00 Norepinephrine/ Dextrose (Levophed/D5W) 500 ml @ 1.87 mls/hr TITRATE IV ; Start 03/27/17 at 12:00 Aspirin (Aspirin) 81 mg DAILY GTB ; Start 03/27/17 at 09:00 DAGOBERTO CAO Mar 27, 2017 10:05
[2017-03-27] MEDS: VITAMIN A & D 5 GM OINT PACKET TOP SCH ×2 (10:27→21:47)
[2017-03-27] MEDS: ENOXAPARIN 40 MG/0.4 ML SYG SC SCH (10:36)
--- NOTE | 2017-03-27 12:33 | CONS ---
Date/Time of Note Date/Time of Note DATE: 03/27/17 TIME: 12:29 Assessment/Plan Assessment/Plan Chief Complaint/Hosp Course IMPRESSION: 1. Congestive heart failure exacerbation-systolic acute on chronic EF 35%by echo this admit 2. History of cardiomyopathy, decreased left ventricular ejection fraction. 35 % by echo this admit 3. Status post recent automatic implantable cardioverter-defibrillator generator change. 4. Pleural effusions, recurrent, status post PleurX catheter. 5. Metastatic breast carcinoma. 6. Hypoxia-on face mask 7. Tachycardia consistent with sinus tachycardia-? due to underlying malignancy +/- volume deplation 8. Hypotension-Now in ICU on pressors 9. HYponatremia-improved 10. Now DNR/DNI REcc: -ICU monitoring -Continue digoxin -Wean off midodrine/levophed as tolerated/possible -Follow volume status closely -Continue resp support -Continue asa Problems: Consultation Date/Type/Reason Admit Date/Time Mar 08, 2017 at 22:13 Initial Consult Date 03/09/2017 Type of Consultation: cardiology Reason for Consultation tachycardia/Hypotension Referring Provider: GARY CROSS MD Exam/Review of Systems Vital Signs Vitals Vital Signs Date Time Temp Pulse Resp B/P Pulse Ox O2 Delivery O2 Flow Rate FiO2 03/27/17 08:20 115 28 93 Non Rebreather Mask 15.0 100 03/27/17 08:15 98/50 03/27/17 08:00 97.5 Intake and Output 03/26/17 03/26/17 03/27/17 15:00 23:00 07:00 Intake Total 700 ml 1009.375 ml Balance 700 ml 1009.375 ml Exam Review of Systems: CONSTITUTIONAL: No fevers, chills. PULMONARY: resp distress CARDIOVASCULAR: No chest pain/palpitations GASTROINTESTINAL: No nausea/vomiting. GENITOURINARY: No hematuria/dysuria. MUSCULOSKELETAL: No myagias/arthalgias. PSYCHIATRIC: The patient denies depression. NEUROLOGIC: lethargic/encephalopathic Constitutional: alert Psych: no complaints Head: normocephalic ENMT: mucosa pink and moist Neck: jvd (9 cm water), supple Respiratory: other (upper airway rhocherous sounds) Cardiovascular: other (tachycardic regular rhythm) Gastrointestinal: non-tender, soft Musculoskeletal: muscle tone (normal) Extremities: edema (trace/B) Neurological: other (NO focal deficits/encehalopathic) Results Result Diagram: 03/27/17 0834 03/27/17 0834 Results 24 hrs Laboratory Tests Test 03/27/17 08:34 White Blood Count 21.0 H Red Blood Count 3.37 L Hemoglobin 9.8 L Hematocrit 32.4 L Mean Corpuscular Volume 96.1 Mean Corpuscular Hemoglobin 29.1 Mean Corpuscular Hemoglobin Concent 30.2 L Red Cell Distribution Width 17.3 H Platelet Count 242 Mean Platelet Volume 11.1 H Neutrophils % 87.9 H Lymphocytes % 1.0 L Monocytes % 8.3 Eosinophils % 0.1 Basophils % 0.1 Nucleated Red Blood Cells % 0.0 Neutrophils # 18.5 H Lymphocytes # 0.2 L Monocytes # 1.7 H Eosinophils # 0.0 Basophils # 0.0 Nucleated Red Blood Cells # 0.0 Sodium Level 138 Potassium Level 5.4 H Chloride Level 92 L Carbon Dioxide Level 38 H Anion Gap 13 Blood Urea Nitrogen 48 #H Creatinine 1.08 H Glucose Level 194 Calcium Level 8.1 L Phosphorus Level 7.0 H Magnesium Level 2.3 Medications Medications Current Medications Ondansetron HCl/ Dextrose (Zofran Inj/D5W) 54 ml @ 108 mls/hr Q6H PRN IV NAUSEA AND/OR VOMITING Last administered on 03/12/17 12:57; Admin Dose 108 MLS /HR; Start 03/09/17 at 02:30 Atorvastatin Calcium (Lipitor) 20 mg HS PO Last administered on 03/26/17 20: 04; Admin Dose 20 MG; Start 03/09/17 at 21:00 Digoxin (Digoxin) 0.125 mg DAILY@13 PO Last administered on 03/26/17 15:19; Admin Dose 0.125 MG; Start 03/09/17 at 13:00 Lorazepam (Ativan) 0.5 mg Q8H PRN PO ANXIETY Last administered on 03/26/17 11 :37; Admin Dose 0.5 MG; Start 03/09/17 at 12:30 Ondansetron HCl (Zofran Tab) 4 mg Q6H PRN PO NAUSEA AND/OR VOMITING; Start 03/09/17 at 12:30 Acetaminophen/ Hydrocodone Bitart ([place] (5/325)) 1 tab Q6H PRN PO PAIN LEVEL 6 -10 Last administered on 03/15/17 20:53; Admin Dose 1 TAB; Start 03/09/17 at 12:30 Bisacodyl (Dulcolax) 5 mg DAILY PRN PO CONSTIPATION; Start 03/09/17 at 12:30 Enoxaparin Sodium (Lovenox) 40 mg DAILY SC Last administered on 03/27/17 10: 36; Admin Dose 40 MG; Start 03/11/17 at 17:00 Vitamin A/Vitamin D (Vitamin A & D Oint) 1 applic BID TOP Last administered on 03/27/17 10:27; Admin Dose 1 APPLIC; Start 03/15/17 at 14:00 Midodrine (Proamatine) 2.5 mg TID@,,17 PO Last administered on 03/27/17 09:00; Admin Dose 2.5 MG; Start 03/17/17 at 09:00 Levofloxacin (Levaquin) 500 mg DAILY@06 PO Last administered on 03/27/17 06: 12; Admin Dose 500 MG; Start 03/17/17 at 19:00 Metoclopramide HCl (Reglan Liq) 10 mg Q6H GTB Last administered on 03/27/17 10:28; Admin Dose 10 MG; Start 03/18/17 at 16:00 Carvedilol (Coreg) 6.25 mg BID PO Last administered on 03/26/17 20:04; Admin Dose 6.25 MG; Start 03/20/17 at 21:00 Morphine Sulfate (morphine) 2 mg Q4H PRN IV PAIN LEVEL 4-6 Last administered on 03/27/17 09:06; Admin Dose 2 MG; Start 03/20/17 at 14:30 Lorazepam (Ativan) 0.5 mg TID PRN PEG anxiety Last administered on 03/27/17 06:56; Admin Dose 0.5 MG; Start 03/20/17 at 15:30 Ketorolac Tromethamine (Toradol) 30 mg Q6H PRN IV PAIN Last administered on 03:00; Admin Dose 30 MG; Start 03/27/17 at 03:00; Stop 03/30/17 at 02: 59 Lansoprazole 30 mg 30 mg DAILY@06 GTB Last administered on 03/27/17 06:20; Admin Dose 30 MG; Start 03/27/17 at 06:13 Norepinephrine/ Dextrose (Levophed/D5W) 500 ml @ 1.87 mls/hr TITRATE IV ; Start 03/27/17 at 12:00 Aspirin (Aspirin) 81 mg DAILY GTB Last administered on 03/27/17 10:27; Admin Dose 81 MG; Start 03/27/17 at 09:00 ROXIE VELARDE Mar 27, 2017 12:33
[2017-03-27] MEDS: DIGOXIN 0.125 MG TAB PO SCH (14:00)
--- NOTE | 2017-03-27 14:27 | PN ---
Date/Time of Note Date/Time of Note DATE: 03/27/17 TIME: 14:27 Assessment/Plan VTE Prophylaxis VTE Prophylaxis Intervention: SCD's Lines/Catheters IV Catheter Type (from Nrs): Peripheral IV Urinary Cath still in place: No Assessment/Plan Assessment/Plan 1. Hypotension - Patient was moved to ICU overnight due to hypotension and started on pressor support - Remains on pressors and will titrate off with goal of MAP >60 - Family would like to continue at this time with chemical code and declined hospice 2. Acute on chronic respiratory failure secondary pleural effusions - abx stopped, unlikely PNA source, patient doing well - Will continue on ventimask and wean as tolerated to maintain O2 >90% - Pulmonology consulted and recommendations appreciated. Continue on daily pleurx drainage at night, too many small pockets for adjustment to be made. - Bronchodilators 3. Elevated troponin -mild, cardiology aware, no intervention -no chest pain 4. [place] UTI -patient and patient's family did not want to treat with antifungal at this time -monitor for now as patient is asymptomatic 5. Dysphagia - GI reconsulted and recommendations appreciated - PEG tubed and tolerating tube feeds well. Pleasure feeds as well as tolerated - scheduled reglan 6. Bilateral pleural effusions, malignant per path report in January secondary to met breast CA. - Pulmonology on board. Will need daily to q 3day pleurx drainage. - Continue on NC and wean as tolerating to keep saturations >90% 7. Tachycardia - Cardiology on board and consultation appreciated - On Digoxin and coreg 8. Hyponatremia - improved - Nephrology on board recs appreciated - No acute symptoms - monitor 9. Cardiomyopathy, congestive heart failure, acute on chronic ejection fraction 45% - Cardiology on board and recommendations appreciated. - Continue statin, asa, coreg as tolerated 10. 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 Merlos, oncology, outpatient. States patient is stage IV and not appropriate to continue chemotherapy at this time. Recommending Palliative care at this time. - Spoke with Family and they are not satisfied with plan and would like to continue to pursue treatment once patient discharged - Dr. Ray offered secondary opinion and agrees with Dr. Merlos in that patient is too debilitated to undergo chemotherapy 11. Anemia of chronic disease - currently stable - will continue monitoring 12. Disposition - Family at this time declined comfort measures and would like to continue with pressor support and active treatment - Remains DNR/DNI, but chemical code ok - Palliative on board and consultation appreciated >30 minutes of critical care time was spent with patient and family at bedside. Patients condition continues to deteriorate and prognosis is extremely poor. Subjective 24 Hr Interval Summary Free Text/Dictation Patient on nonrebreather and appears to have agonal breathing and is unresponsive. Continues on pressor support. Family at this time has declined comfort measures or hospice. Would like to continue on Pressor support for now. Exam/Review of Systems Vital Signs Vitals Vital Signs Date Time Temp Pulse Resp B/P Pulse Ox O2 Delivery O2 Flow Rate FiO2 03/27/17 12:15 114 13 88/49 94 03/27/17 12:00 97.4 Non Rebreather 15.0 03/27/17 08:20 100 Intake and Output 03/26/17 03/26/17 03/27/17 15:00 23:00 07:00 Intake Total 700 ml 1009.375 ml Balance 700 ml 1009.375 ml Exam General: agonal breathing, not very responsive, on nonrebreather Head: Normocephalic atraumatic Eyes: EOMI, pupils reactive to light Neck: Supple, nontender, midline Respiratory: crackles at bases bilaterally, agonal breathing Cardiovascular: irregular rhythm, tachycardia, no obvious murmurs Gastrointestinal: non-tender to palpation, bowel sounds heard. Neurological: Moves all extremities spontaneously Results Result Diagram: 03/27/17 0834 03/27/17 0834 Results 24 hrs Laboratory Tests Test 03/27/17 08:34 White Blood Count 21.0 H Red Blood Count 3.37 L Hemoglobin 9.8 L Hematocrit 32.4 L Mean Corpuscular Volume 96.1 Mean Corpuscular Hemoglobin 29.1 Mean Corpuscular Hemoglobin Concent 30.2 L Red Cell Distribution Width 17.3 H Platelet Count 242 Mean Platelet Volume 11.1 H Neutrophils % 87.9 H Lymphocytes % 1.0 L Monocytes % 8.3 Eosinophils % 0.1 Basophils % 0.1 Nucleated Red Blood Cells % 0.0 Neutrophils # 18.5 H Lymphocytes # 0.2 L Monocytes # 1.7 H Eosinophils # 0.0 Basophils # 0.0 Nucleated Red Blood Cells # 0.0 Sodium Level 138 Potassium Level 5.4 H Chloride Level 92 L Carbon Dioxide Level 38 H Anion Gap 13 Blood Urea Nitrogen 48 #H Creatinine 1.08 H Glucose Level 194 Calcium Level 8.1 L Phosphorus Level 7.0 H Magnesium Level 2.3 Medications Medications Current Medications Ondansetron HCl/ Dextrose (Zofran Inj/D5W) 54 ml @ 108 mls/hr Q6H PRN IV NAUSEA AND/OR VOMITING Last administered on 03/12/17 12:57; Admin Dose 108 MLS /HR; Start 03/09/17 at 02:30 Atorvastatin Calcium (Lipitor) 20 mg HS PO Last administered on 03/26/17 20: 04; Admin Dose 20 MG; Start 03/09/17 at 21:00 Digoxin (Digoxin) 0.125 mg DAILY@13 PO Last administered on 03/27/17 14:00; Admin Dose 0.125 MG; Start 03/09/17 at 13:00 Lorazepam (Ativan) 0.5 mg Q8H PRN PO ANXIETY Last administered on 03/26/17 11 :37; Admin Dose 0.5 MG; Start 03/09/17 at 12:30 Ondansetron HCl (Zofran Tab) 4 mg Q6H PRN PO NAUSEA AND/OR VOMITING; Start 03/09/17 at 12:30 Acetaminophen/ Hydrocodone Bitart ([place] (5/325)) 1 tab Q6H PRN PO PAIN LEVEL 6 -10 Last administered on 03/15/17 20:53; Admin Dose 1 TAB; Start 03/09/17 at 12:30 Bisacodyl (Dulcolax) 5 mg DAILY PRN PO CONSTIPATION; Start 03/09/17 at 12:30 Enoxaparin Sodium (Lovenox) 40 mg DAILY SC Last administered on 03/27/17 10: 36; Admin Dose 40 MG; Start 03/11/17 at 17:00 Vitamin A/Vitamin D (Vitamin A & D Oint) 1 applic BID TOP Last administered on 03/27/17 10:27; Admin Dose 1 APPLIC; Start 03/15/17 at 14:00 Midodrine (Proamatine) 2.5 mg TID@,,17 PO Last administered on 03/27/17 14:00; Admin Dose 2.5 MG; Start 03/17/17 at 09:00 Levofloxacin (Levaquin) 500 mg DAILY@06 PO Last administered on 03/27/17 06: 12; Admin Dose 500 MG; Start 03/17/17 at 19:00 Metoclopramide HCl (Reglan Liq) 10 mg Q6H GTB Last administered on 03/27/17 10:28; Admin Dose 10 MG; Start 03/18/17 at 16:00 Carvedilol (Coreg) 6.25 mg BID PO Last administered on 03/26/17 20:04; Admin Dose 6.25 MG; Start 03/20/17 at 21:00 Morphine Sulfate (morphine) 2 mg Q4H PRN IV PAIN LEVEL 4-6 Last administered on 03/27/17 14:00; Admin Dose 2 MG; Start 03/20/17 at 14:30 Lorazepam (Ativan) 0.5 mg TID PRN PEG anxiety Last administered on 03/27/17 06:56; Admin Dose 0.5 MG; Start 03/20/17 at 15:30 Ketorolac Tromethamine (Toradol) 30 mg Q6H PRN IV PAIN Last administered on 03:00; Admin Dose 30 MG; Start 03/27/17 at 03:00; Stop 03/30/17 at 02: 59 Lansoprazole 30 mg 30 mg DAILY@06 GTB Last administered on 03/27/17 06:20; Admin Dose 30 MG; Start 03/27/17 at 06:13 Norepinephrine/ Dextrose (Levophed/D5W) 500 ml @ 1.87 mls/hr TITRATE IV Last administered on 03/27/17 12:35; Admin Dose 11.25 MLS/HR; Start 03/27/17 at 12 :00 Aspirin (Aspirin) 81 mg DAILY GTB Last administered on 03/27/17 10:27; Admin Dose 81 MG; Start 03/27/17 at 09:00 GARY CROSS MD Mar 27, 2017 14:27
[2017-03-27] MEDS ORDERED: MIDODRINE 5 MG TAB ONE (16:39)
--- NOTE | 2017-03-27 20:36 | CONS ---
Date/Time of Note Date/Time of Note DATE: 03/27/17 TIME: 20:34 Assessment/Plan Assessment/Plan Chief Complaint/Hosp Course 1. hyponatremia, better f 2. Urinary tract infection, resolved. 3. Congestive heart failure, systolic and chronic EF 35% by echo this admit. 4. History of cardiomyopathy, decreased ejection fraction. 5. Status post AICD generator change. 6. Pleural effusion, recurrent, status post PleurX. 7. Metastatic breast carcinoma. 8. Hypoxia. 9. Sinus tachycardia. 10 Sepsis 11 gelacio 12 hyperkalemia plan kayexalate Problems: Consultation Date/Type/Reason Admit Date/Time Mar 08, 2017 at 22:13 Initial Consult Date 03/17/17 Type of Consultation: renal Referring Provider: GARY CROSS MD 24 HR Interval Summary Subjective hx not possible: other (res distress+) Exam/Review of Systems Vital Signs Vitals Vital Signs Date Time Temp Pulse Resp B/P Pulse Ox O2 Delivery O2 Flow Rate FiO2 03/27/17 19:15 112 17 84/42 86 03/27/17 19:00 Non Rebreather 15.0 03/27/17 16:00 97.6 03/27/17 08:20 100 Intake and Output 03/26/17 03/26/17 03/27/17 15:00 23:00 07:00 Intake Total 700 ml 1009.375 ml Balance 700 ml 1009.375 ml Exam Respiratory: diminished breath sounds Cardiovascular: regular rate and rhythm Gastrointestinal: bowel sounds (+), soft Neurological: lethargic Results Result Diagram: 03/27/17 0834 03/27/17 0834 Results 24 hrs Laboratory Tests Test 03/27/17 08:34 White Blood Count 21.0 H Red Blood Count 3.37 L Hemoglobin 9.8 L Hematocrit 32.4 L Mean Corpuscular Volume 96.1 Mean Corpuscular Hemoglobin 29.1 Mean Corpuscular Hemoglobin Concent 30.2 L Red Cell Distribution Width 17.3 H Platelet Count 242 Mean Platelet Volume 11.1 H Neutrophils % 87.9 H Lymphocytes % 1.0 L Monocytes % 8.3 Eosinophils % 0.1 Basophils % 0.1 Nucleated Red Blood Cells % 0.0 Neutrophils # 18.5 H Lymphocytes # 0.2 L Monocytes # 1.7 H Eosinophils # 0.0 Basophils # 0.0 Nucleated Red Blood Cells # 0.0 Sodium Level 138 Potassium Level 5.4 H Chloride Level 92 L Carbon Dioxide Level 38 H Anion Gap 13 Blood Urea Nitrogen 48 #H Creatinine 1.08 H Glucose Level 194 Calcium Level 8.1 L Phosphorus Level 7.0 H Magnesium Level 2.3 Medications Medications Current Medications Ondansetron HCl/ Dextrose (Zofran Inj/D5W) 54 ml @ 108 mls/hr Q6H PRN IV NAUSEA AND/OR VOMITING Last administered on 03/12/17 12:57; Admin Dose 108 MLS /HR; Start 03/09/17 at 02:30 Atorvastatin Calcium (Lipitor) 20 mg HS PO Last administered on 03/26/17 20: 04; Admin Dose 20 MG; Start 03/09/17 at 21:00 Digoxin (Digoxin) 0.125 mg DAILY@13 PO Last administered on 03/27/17 14:00; Admin Dose 0.125 MG; Start 03/09/17 at 13:00 Ondansetron HCl (Zofran Tab) 4 mg Q6H PRN PO NAUSEA AND/OR VOMITING; Start 03/09/17 at 12:30 Acetaminophen/ Hydrocodone Bitart ([place] (5/325)) 1 tab Q6H PRN PO PAIN LEVEL 6 -10 Last administered on 03/15/17 20:53; Admin Dose 1 TAB; Start 03/09/17 at 12:30 Bisacodyl (Dulcolax) 5 mg DAILY PRN PO CONSTIPATION; Start 03/09/17 at 12:30 Enoxaparin Sodium (Lovenox) 40 mg DAILY SC Last administered on 03/27/17 10: 36; Admin Dose 40 MG; Start 03/11/17 at 17:00 Vitamin A/Vitamin D (Vitamin A & D Oint) 1 applic BID TOP Last administered on 03/27/17 10:27; Admin Dose 1 APPLIC; Start 03/15/17 at 14:00 Midodrine (Proamatine) 2.5 mg TID@,, PO Last administered on 03/27/17 16:59; Admin Dose 2.5 MG; Start 03/17/17 at 09:00 Levofloxacin (Levaquin) 500 mg DAILY@06 PO Last administered on 03/27/17 06: 12; Admin Dose 500 MG; Start 03/17/17 at 19:00 Metoclopramide HCl (Reglan Liq) 10 mg Q6H GTB Last administered on 03/27/17 16:59; Admin Dose 10 MG; Start 03/18/17 at 16:00 Carvedilol (Coreg) 6.25 mg BID PO Last administered on 03/26/17 20:04; Admin Dose 6.25 MG; Start 03/20/17 at 21:00 Morphine Sulfate (morphine) 2 mg Q4H PRN IV PAIN Last administered on 17:38; Admin Dose 2 MG; Start 03/20/17 at 14:30 Lorazepam (Ativan) 0.5 mg TID PRN PEG anxiety Last administered on 03/27/17 06:56; Admin Dose 0.5 MG; Start 03/20/17 at 15:30 Ketorolac Tromethamine (Toradol) 30 mg Q6H PRN IV PAIN Last administered on 03:00; Admin Dose 30 MG; Start 03/27/17 at 03:00; Stop 03/30/17 at 02: 59 Lansoprazole 30 mg 30 mg DAILY@06 GTB Last administered on 03/27/17 06:20; Admin Dose 30 MG; Start 03/27/17 at 06:13 Norepinephrine/ Dextrose (Levophed/D5W) 500 ml @ 1.87 mls/hr TITRATE IV Last administered on 03/27/17 12:35; Admin Dose 11.25 MLS/HR; Start 03/27/17 at 12 :00 Aspirin (Aspirin) 81 mg DAILY GTB Last administered on 03/27/17 10:27; Admin Dose 81 MG; Start 03/27/17 at 09:00 WAN FLAHERTY MD Mar 27, 2017 20:36
[2017-03-27] MEDS ORDERED: NA POLYST SULFON 15 GM/60 ML BTL PO ONE (21:00)
[2017-03-27] MEDS: ATORVASTATIN 20 MG TAB PO SCH (21:47)
[2017-03-28] VITALS (12 sets, daily range): BP systolic 0–77; BP diastolic 0–33; PULSE 0–89; RESP 0–18
--- NOTE | 2017-03-28 02:55 | EN ---
Date/Time of Note Date/Time of Note DATE: 03/28/17 TIME: 02:52 Event Note Medicine Medicine Event Note Pronouncement Note Patient seen and examined at the bedside. Patient non-responsive to verbal stimuli. Patient non-responsive to vigorous sternal rub. Pupils fixed and non reactive bilaterally. No heart sounds appreciated on auscultation. Asystole on telemetry. Pronounced at approximately 2:50am. Family present at the bedside. Primary team aware. Patient was a DNR. RADHA TAVARES Mar 28, 2017 02:55
--- NOTE | 2017-03-28 08:25 | DES ---
Date/Time of Note Date/Time of Note DATE: 03/28/17 TIME: 08:25 Discharge/ Summary Admission/Discharge Info Admit Date/Time Mar 08, 2017 at 22:13 Discharge Date/Time Mar 28, 2017 at 05:08 Final Diagnosis Acute hypoxic respiratory failure secondary to malignant pleural effusions Preliminary Cause of 1. Cardiopulmonary arrest secondary to 2. Hypoxic respiratory failure secondary to 3. Malignant pleural effusions secondary to 4. Metastatic breast cancer Hx of Present Illness 81-year-old female with history of breast cancer with mets to the left hip bones , AICD placement, history of dysphagia status post GI dilation therapy and malignant effusion status post placement of pleurx catheters bilaterally was transferred from [facility] after presenting with shortness of breath. Patient was recently discharged to SNF and was not adequately oxygenated. Patient was found to have bilateral pleural effusion seen on CXR. She was initially requiring positive pressure ventilation. Patient was transferred to [facility] because of insurance reasons. During her previous hospitalization, bilateral Pleurx catheter was placed, AICD battery was replaced and the patient underwent GI dilation procedure for dysphagia. Patient was found lethargic upon admission. Hospital Course Patient had a long complicated hospitalization. Pulmonology was consulted again for management of pleural effusions. Patient initially had pleurx catheters drained every 3 days but due to reaccumulation and respiratory distress, patient required daily drainage. Cardiology was consulted again for management of congestive heart failure and tachycardia. Gi was consulted secondary to patient no longer tolerating pureed diet and PEG tube placement was performed. Patients family was concerned she was unable to receive chemotherapy during her recent hospitalizations and her outpatient Oncologist was consulted. Per her oncologist, patients disease had been progressing over the past few months and patient was too debilitated to undergo further chemotherapy or radiation. A second opinion was obtained from a fellow Oncologist who agreed that patient should be made comfortable rather than pursue aggressive treatment. Family did not want to pursue comfort measures, but however maintained DNR/DNI status. 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 Disposition plan was for SNF placement as patients family had decided on a location. Patient needed to be stabilized more before transfer to avoid rehospitalization. Palliative care and hospice was once again addressed with family and they were willing to speak with respective individuals but again declined comfort measures or hospice care. The family wanted to continue with active care of all patients disease processes. Patients tachycardia persistent and shortness of breath worsened. repeat studies showed loculated pockets of fluid and patient was not a surgical candidate to undergo any type of procedure. Patients condition continued to decline and patient was hypotensive. She was transferred to ICU for pressor support. Family continued to decline hospice or comfort measures. Patient became unresponsive with agonal breathing and on 03/28/17 at 0250am. Pending Labs/Cultures Laboratory Tests Test 03/27/17 08:34 White Blood Count 21.010^3/ul (4.8-10.8) Red Blood Count 3.3710^6/ul (4.20-5.40) Hemoglobin 9.8g/dl (12.0-16.0) Hematocrit 32.4% (37.0-47.0) Mean Corpuscular Volume 96.1fl (82.0-101.0) Mean Corpuscular Hemoglobin 29.1pg (29.0-33.0) Mean Corpuscular Hemoglobin Concent 30.2g/dl (32.0-37.0) Red Cell Distribution Width 17.3% (11.5-14.5) Platelet Count 82799^3/UL (140-415) Mean Platelet Volume 11.1fl (7.4-10.4) Neutrophils % 87.9% (39.0-77.0) Lymphocytes % 1.0% (15.0-51.0) Monocytes % 8.3% (0.0-11.0) Eosinophils % 0.1% (0.0-7.0) Basophils % 0.1% (0.0-2.0) Nucleated Red Blood Cells % 0.0/100WBC (0.0-0.0) Neutrophils # 18.510^3/ul (1.6-7.5) Lymphocytes # 0.210^3/ul (0.8-2.9) Monocytes # 1.710^3/ul (0.3-0.9) Eosinophils # 0.010^3/ul (0.0-0.5) Basophils # 0.010^3/ul (0.0-0.1) Nucleated Red Blood Cells # 0.010^3/ul (0.0-0.0) Sodium Level 138mmol/L (135-144) Potassium Level 5.4mmol/L (3.5-5.1) Chloride Level 92mmol/L (97-110) Carbon Dioxide Level 38mmol/L (21-31) Anion Gap 13 (8-16) Blood Urea Nitrogen 48mg/dl (7-20) Creatinine 1.08mg/dl (0.44-1.00) Glucose Level 194mg/dl (70-220) Calcium Level 8.1mg/dl (8.4-10.2) Phosphorus Level 7.0mg/dl (2.5-4.9) Magnesium Level 2.3mg/dl (1.7-2.5) Autopsy Request Indications N/A GARY CROSS MD Mar 28, 2017 08:25
== END 2017-03-28 05:08 | disposition expired | DRG 189 ==
LOC: MS4 22:13 → TEL 03-21 01:30 → ICU 03-27 05:33
PROVIDERS: ADMIT Internal Medicine; ATTEND Internal Medicine
PROC: 0DH63UZ Insertion of Feeding Device into Stomach, Percutaneous Approach (ICD-10-PCS; principal; 2017-03-15 20:20)
DX: J96.21 Acute and chronic respiratory failure with hypoxia (principal); N17.9 Acute kidney failure, unspecified; I50.23 Acute on chronic systolic (congestive) heart failure; A41.9 Sepsis, unspecified organism; J91.0 Malignant pleural effusion; C79.51 Secondary malignant neoplasm of bone; I42.9 Cardiomyopathy, unspecified; T82.868A Thrombosis due to vascular prosthetic devices, implants and grafts, initial encounter; B37.49 Other urogenital candidiasis; E87.1 Hypo-osmolality and hyponatremia; I95.9 Hypotension, unspecified; E86.0 Dehydration; E87.5 Hyperkalemia; D63.8 Anemia in other chronic diseases classified elsewhere; D72.829 Elevated white blood cell count, unspecified; M79.89 Other specified soft tissue disorders; R00.2 Palpitations; R63.3 Feeding difficulties; R00.0 Tachycardia, unspecified; Z66 Do not resuscitate; I46.8 Cardiac arrest due to other underlying condition; Z95.810 Presence of automatic (implantable) cardiac defibrillator; Z85.3 Personal history of malignant neoplasm of breast; Z92.21 Personal history of antineoplastic chemotherapy; Z92.3 Personal history of irradiation
CPT/HCPCS: 36600; 70450; 71010; 71250; 76604; 80048; 80053; 80069; 80162; 81001; 82803; 82962; 83735; 83880; 83930; 83935; 84100; 84132; 84295; 84300; 84443; 84484; 85025; 85049; 85610; 85670; 85730; 87040; 87086; 92526; 92610; 93005; 93306; 94640; 94660; 94664; 97110; 97162; 97166; 97530; 97535; J1940; J0690; J1650; J1885; J1956; J2060; J2250; J2270; J2405; J2765; J3010; J7030; J7040; J7060; P9047